=== PATIENT | female | born 1935 | race Caucasian/White ===

== ENCOUNTER 2017-02-12 08:19 | Inpatient (IN) | payer MEDICARE ==
[2017-02-12] VITALS (13 sets, daily range): BP systolic 143–181; BP diastolic 83–115
[~2017-02-12] VITALS: Ht 165.1 cm; Wt 65.9 kg
[~2017-02-12 08:19] MED LIST: ATEN25TA PO; BRIM5DRO2; DIGO125T18 PO; DORZ10DR24; FLUO5DRO6; FURO20TA4 PO; LATA2.5D5 OS; LEVO75TA6 PO; METH2.5T PO; OMEP20CA12 PO; POTA10TA36 PO; SIMV40TA4 PO; SUCR1TAB PO; TRAM50TA2 PO
[2017-02-12] MEDS ORDERED: ENOXAPARIN 40 MG/0.4 ML (LOVENOX) SYR SC SCH (09:15)
[2017-02-12] MEDS ORDERED: PRED5DRO17 OD (10:26)
[2017-02-12] MEDS ORDERED: GABA-488 PO (10:26)
[2017-02-12] MEDS: NS IV 1000 ML 1,000 ML IV SCH ×3 (10:38→22:24)
[2017-02-12] MEDS ORDERED: FOLI1TAB24 PO (10:50)
[2017-02-12] MEDS ORDERED: CYCL2DRO3 OD (10:50)
--- NOTE | 2017-02-12 11:49 | History & Physical-Hospitalist ---
HPI History of Present Illness: HPI/Chief Complaint CC: Acute Ischemic Stroke SW Review: Pt was last know well at 2200 yesterday. Pt was flaccid at 0630 this morning. Not a thrombolytic candidate. Hx of hemorrhagic CVA 2014. Patient Interview: Pt states her PCP is Dr. Enciso for [address] Vasquez was her PCP before Dr. Enciso and Dr Manzano. Physical exam was stable. Pt family states pt has AF and she is on meds for this condition. Pt states she goes to [facility]. Pt states she has been seeing Dr. Trevino, Cardiology. Pt states she is in pain. Pt will be given pain meds. Pt family states pt has RA. Palliative Care Review: Pt is a do not intubate. Scribed by Arnold Moore under the direct supervision of Dr. Briggs. Source: RN/MD Exam Limitations: clinical condition Date Seen 02/12/17 Attending Physician Rossy Briggs DO PCP Dayton Enciso MD Referring Physician Date of Admission Feb 12, 2017 at 09:40 Home Medications & Allergies Home Medications Reviewed patient Home Medication Reconciliation Form Allergies Allergies Coded Allergies iodine (Unverified Adverse Reaction, Unknown, 10/12/15) lidocaine (Unverified Adverse Reaction, Unknown, 10/12/15) Past Wkzdvjw-Moiozh-Naqney Hx Patient Social History Marrital Status: Employed/Student: retired Smoking Status: Unknown if Ever Smoked Immunizations Up To Date Tetanus Booster (TDap): Less than 5yrs Date of Influenza Vaccine: Sep 30, 2015 Surgeries HX Surgeries: Yes (foot surgery d/t RA) Surgeries: Appendectomy, Gallbladder, Hysterectomy Respiratory Hx Respiratory Disorders: Yes (02 at night) Cardiovascular Hx Cardiovascular Disorders: Yes Cardiac Disorders: Atrial Fibrillation, Hypertension Neurological Hx Neurological Disorders: Yes Neurological Disorders: TIA Gastrointestinal Hx Gastrointestinal Disorders: Yes Gastrointestinal Disorders: Gastroesophageal Reflux Musculoskeletal Hx Musculoskeletal Disorders: Yes Musculoskeletal Disorders: Rheumatoid Arthritis Endocrine Hx Endocrine Disorders: Yes Endocrine Disorders: Hypothyroidsim HEENT HX ENT Disorders: Yes HEENT Disorders: Glaucoma Review of Systems ROS-Unable to Obtain: patient w/CVA can't speak and patient found this am with deficit Constitutional: see HPI Physical Exam Physical Exam Vital Signs Vital Sign - Last 12Hours 02/12/17 09:45 Temp 99.0 Pulse 92 Resp 14 B/P (MAP) 145/83 Pulse Ox 97 O2 Delivery Room Air Capillary Refill : General Appearance: No Apparent Distress, WD/WN, Chronically ill, Other ( aphasic and right facial droop) Eyes: Bilateral Eye Normal Inspection, Bilateral Eye PERRL HEENT: PERRL/EOMI, Normal ENT Inspection, Pharynx Normal Neck: Normal Inspection, Non Tender, Supple Respiratory: Chest Non Tender, Lungs Clear, Normal Breath Sounds, No Accessory Muscle Use, No Respiratory Distress Cardiovascular: No Edema, No Gallop, No JVD, No Murmur, Normal Peripheral Pulses, Irregularly Irregular Gastrointestinal: Normal Bowel Sounds, No Organomegaly, No Pulsatile Mass, Non Tender, Soft Back: Normal Inspection, No CVA Tenderness, No Vertebral Tenderness Extremity: Normal Capillary Refill, Normal Inspection, Normal Range of Motion, Non Tender, No Calf Tenderness, No Pedal Edema Neurologic/Psychiatric: Alert, Oriented x3, No Motor/Sensory Deficits, Depressed Affect, Facial Droop, Motor Weakness (right) Skin: Normal Color, Warm/Dry Lymphatic: No Adenopathy Assessment/Plan Admission Diagnosis Assessment: Acute ischemic stroke with right sided facial droop and weakness hemiparesis h/o hemorrhagic CVA 2014 Chronic AF RA HTN Assessment and Plan Plan: CVA protocol DVT Px Consult Dr Moore since likely an embolic stroke from AF? HTN management but avoid hypotension PT/OT/Speech MRI ROSSY BRIGGS DO Feb 12, 2017 11:49
[2017-02-12] MEDS: ASPIRIN E.C. 325 MG (ECOTRIN) TABLET PO SCH (12:21)
[2017-02-12] MEDS: CLOPIDOGREL 75 MG (PLAVIX) TABLET PO SCH (12:21)
--- NOTE | 2017-02-12 13:32 | ST Dysphagia Evaluation ---
Speech Evaluation-General Medical Diagnosis CVA (MRI Brain Pending) Onset Date: Feb 12, 2017 Therapy Diagnosis Therapy Diagnosis: Oropharyngeal Swallow WFL Referral Referring Physician: Dr. Rossy Otto Reason for Referral: Evaluation/Treatment Clinical Bedside Swallowing Evaluation Medical History Pertinent Medical History: Atrial Fib, GERD, HTN, Hypothroidism, Rheumatoid Arthritis TIA Reviewed History: Yes Speech PLF/Current-Dysphagia Prior Level of Function Due to the patient's severe expressive aphasia, prior level of function information was not provided by the patient. Subjective The patient was recently admitted to [facility] with a diagnosis of CVA (MRI pending). The patient made eye contact with the clinician, however, was unable to verbally respond to questions or greetings due to severe expressive aphasia. The patient had family members present at bedside. The patient agreed (via head nod) to participate in the dysphagia evaluation on this date. Radiology studies are not available at this time. Cognitive Status Patient Orientation: Non-Verbal/Aphasic Oral Motor Skills Dentition: Natural Ability to Follow Directions: Fair (Direct modeling aided in accuracy of command following.) The patient is NPO pending results of dysphagia evaluation. Oral Expression Ability: Severe Impairment Face Facial Symmetry: Asymmetrical (Right facial droop present.) Oral-Facial Assessment Oral-Facial Dentition: Normal Labial Seal Description: Droops Right Smile: Droops Right Puff Cheeks: Reduced Strength (Right) Patient unable to follow command for lingual protrusion. Pharynx Velopharyngeal Move.: Normal Volitional Dry Swallow: Yes Dysphagia Evaluation Consistencies Presented: Regular, Thin Liquid, Pureed No oral impairments were noted throughout the evaluation. No pharyngeal impairments were noted throughout the evaluation. - Thin liquid (via teaspoon, straw sip), puree, solid: No signs/symptoms of aspiration were demonstrated with multiple boluses of each consistency presented. Vocal quality could not be assessed for clarity due to the patient's current nonverbal state. The patient's SpO2% remained at 95% throughout the assessment. Dietary Recommendations: Regular Liquid Recommendations: Thin Swallowing Precautions: Oral Supervision Staff, Oral Supervision Caregiver, Small Bites and Sips, Sitting 90 Degrees 30 Post Intake Dysphagia Evaluation Summary Oropharyngeal Swallow WFL Speech-Plan Treatment Plan Speech Therapy Treatment Plan: Discontinue ST Speech pathology to discontinue dysphagia services for patient due to a swallowing function WNL. Speech pathology will continue to follow the patient for speech and language services. Rehab Potential: Fair Safety Risks/Education Teaching Recipient: Patient, Family Teaching Methods: Discussion Response to Teaching: Verbalize Understanding, Reinforcement Needed Education Topics Provided: Results, Recommendations, Plan of Care Time Speech Therapy Time In: 11:45 Speech Therapy Time Out: 12:05 Total Billed Time: 20 Billed Treatment Time 1, MATTHIEU ALLEN Feb 12, 2017 13:32
[2017-02-12] MEDS ORDERED: ACET500C PO (13:46)
[2017-02-12] MEDS ORDERED: BRIM5DRO OU (13:49)
[2017-02-12] MEDS ORDERED: BIMA2.5D4 OD (13:49)
--- NOTE | 2017-02-12 14:16 | Diagnostic Imaging Report ---
PROCEDURE: MR imaging of the brain without contrast. TECHNIQUE: Multiplanar, multisequence MR imaging of the brain was performed without contrast. INDICATION: Mental status change. Question of stroke. FINDINGS: There is considerable restricted diffusion noted in the left temporal, parietal, and occipital cortex. Also extending anteriorly into the left temporal lobe. There is some restricted diffusion in the putamen in the left basal nuclei. No intracranial hemorrhage is demonstrated. Diffuse periventricular white matter changes are noted which were present previously and have changed very little. There is mild generalized cortical atrophy. The ventricles are not dilated. Basal cisterns are clear. CP angles are normal. There is normal flow void in the intracranial vessels. Flow void is demonstrated into the second and third order branches of the left middle cerebral artery. IMPRESSION: 1. Findings are consistent with evolving ischemic infarct involving the left temporal, parietal, and occipital lobes as well as the putamen in the left basal nuclei. No intracranial hemorrhage is demonstrated. No significant mass effect. Dictated by: Dictated on workstation # [id number]
--- NOTE | 2017-02-12 14:22 | Physical Therapy Evaluation ---
PT Evaluation-General Medical Diagnosis Admission Date Feb 12, 2017 at 09:40 Medical Diagnosis: CVA (MRI Brain Pending) Onset Date: Feb 12, 2017 Therapy Diagnosis Therapy Diagnosis: impaird mobility, balance, weakness, right jasmyne Height/Weight Height (Feet): 5 Height (Inches): 4 Weight (Pounds): 160 Referral Physician: Rossy Otto DO Reason for Referral: Evaluation/Treatment Medical History Pertinent Medical History: Atrial Fib, GERD, HTN, Hypothroidism, Rheumatoid Arthritis Additional Medical History O2 at night, TIA, glaucoma, surg (appendectomy, gall bladder, hysterectomy) Current History acute ischemic stroke Reviewed History: Yes Social History unknown, patient does not communicate, she had other family in the room but they were busy with other healthcare workers Prior/Core FIM Prior Level of Function Functional [place] Measure 0=Not Assessed/NA 4=Minimal Assistance 1=Total Assistance 5=Supervision or Setup 2=Maximal Assistance 6=Modified [place] 3=Moderate Assistance 7=Complete [place] unknown PT Evaluation-Current Subjective Patient in bed pre tx, she has other family members in the room with her. Patient does not seem to speak and will only look at therapist a moment before averting eyes or closing them like she is trying to sleep. Pain Comment: unknown, no grimacing Pt/Family Goals none stated Objective Patient Orientation: Unable to Assess Attachments: Oxygen ROM/Strength ROM Lower Extremities WNL Strenght Lower Extremities NT, patient will not follow commands Neuromuscular (Tone, Coordination, Reflexes) right hemiparesis Sensory Vision: Unable to Assess Hearing: Unable to Assess Sensation Lower Extremities unable to assess Transfers Functional [place] Measure 0=Not Assessed/NA 4=Minimal Assistance 1=Total Assistance 5=Supervision or Setup 2=Maximal Assistance 6=Modified [place] 3=Moderate Assistance 7=Complete [place] Transfers (B, C, W/C) (FIM): 2 Scootin Rollin Supine to/from Sit: 2 Patient was max assist of 2 for supine to sit, she was able to sit at the edge of the bed for a few minutes without assist but needed assist when she got fatigued. Standing was not attempted due to blood pressure 180/90. She did try some LAQ at the edge of the bed. Patient will not follow commands but will immitate a little. Balance Sitting Static: Fair Sitting Dynamic: Poor Treatment LAQ each side x10 Assessment/Needs Patient has impairments in mobility, balance, strength, and endurance. She does not follow directions, will sometimes immitate others. Poor initiation and motivation. Rehab Potential: Poor PT Snf Goals Bearing Machine Operator Goals PT Snf Goals Time Frame: Feb 19, 2017 Transfers (B,C,W/C) (FIM): 4 Gait (FIM): 1 Distance: 3' Gait Level of Assist: 2 Gait Assistive Device: FWW PT Plan Problem List Problem List: Activity Tolerance, Functional Strength, Safety, Balance, Gait, Transfer, Bed Mobility, ROM Treatment/Plan Treatment Plan: Continue Plan of Care Treatment Plan: Bed Mobility, Education, Functional Activity [place], Functional Strength, Gait, Safety, Therapeutic Exercise, Transfers Treatment Duration: Feb 19, 2017 # of days/week 5-6 Visits Per Week: 5-6 Minutes/Day (M-F): 15-30 Minutes/Day (Sat/Anders): 15-30 Pt/Family Agrees w/Plan: Yes Safety Risks/Education Patient Education: Transfer Techniques, Correct Positioning, Safety Issues Teaching Recipient: Patient Teaching Methods: Demonstration, Discussion Response to Teaching: Reinforcement Needed Discharge Recommendations Plan Patient will perform bed mobility and transfer training, balance and endurance training, functional strengthening, stair training, gait training, education, to improve functional mobility and independence at home. Therapy D/C Recommendations: Home w/ Family Support, Assisted (TCU/NH) Time/GCodes Time In: 1350 Time Out: 1405 Total Billed Treatment Time: 15 Total Billed Treatment 1 visit EVL 15 min RETA PENA PT Feb 12, 2017 14:22
--- NOTE | 2017-02-12 14:42 | Consultation-Cardiology ---
HPI-Cardiology Cardiology Consultation: Date of Consultation 02/12/17 Date of Admission Attending Physician Rossy Otto DO Admitting Physician Jayne Vasquez MD Consulting Physician PATRICK GARCIA MD, MA, FACP, FACC, [facility], CCDS Physician requesting consult: Dr Otto HPI: Chief Complaint: Reason for consultation: Chronic atrial fib 81 yo woman admitted to Dr Otto's Stroke Service today with flaccid paralysis of the R upper and lower limb, not felt to be a suitable candidate for thrombolysis by Dr Otto At the time of my exam, she is aphasic but appropriately responsive (by gestures ). She does not report cp or palp or syncope Family reports a h/o fall leading to post-traumatic intracranial bleed in 2014 for which she remained hospitalized in [place] and under neurosurg observation, but did not need any intervention There is a remote h/o warfarin therapy, but has not been on it for a long time. No one seems to recall when she went off warfarin Her regular ventilating expert is Dr Trevino, but she has not seen him in a very long time, according to the family Review of Systems-Cardiology Review of Systems Constitutional: other (A detailed review of systems is not possible because of patient's aphasia and some lethargy/confusion. To the extent that it could be obtained is described under HPI above) OLU-Vwfqwt-Rwjggy Hx Patient Social History Marrital Status: Employed/Student: retired Smoking Status: Unknown if Ever Smoked Recent Foreign Travel: No Recent Infectious Disease Expo: No Immunizations Up To Date Tetanus Booster (TDap): Less than 5yrs Date of Pneumonia Vaccine: Aug 20, 2014 Date of Influenza Vaccine: Aug 17, 2016 Past Medical History PMH As described under Assessment. Family Medical History Family History: Alcoholism 19 FATHER Asthma 19 MOTHER G8 SISTER Cardiovascular disease G8 SISTER FH: atrial fibrillation G8 SISTER FH: cancer G8 BROTHER G8 SISTER FH: lymphoma G8 BROTHER G8 SISTER Allergies and Home Medications Allergies Coded Allergies: iodine (Unverified Adverse Reaction, Unknown, 10/12/15) lidocaine (Unverified Adverse Reaction, Unknown, 10/12/15) Home Medications Acetazolamide 500 Mg Capsule.er, 500 MG PO DAILY, (Reported) LAST FILLED #30 12-25-16 Atenolol 25 Mg Tablet, 12.5 MG PO DAILY, (Reported) TAKES 1/2 (25MG) TABLET Bimatoprost 2.5 Ml Drops, 1 DROP OD HS, (Reported) Brimonidine Tartrate/Timolol 5 Ml Drops, 1 DROP OU BID, (Reported) Cyclopentolate HCl 2 Ml Drops, 1 DROP OD DAILY, (Reported) Digoxin 125 Mcg Tablet, 125 MCG PO DAILY, (Reported) Folic Acid 1 Mg Tablet, 1 MG PO BID, (Reported) Gabapentin 300 Mg Capsule, 300 MG PO BID, (Reported) Levothyroxine Sodium 75 Mcg Tablet, 75 MCG PO DAILY, (Reported) Methotrexate Sodium 2.5 Mg Tablet, 25 MG PO WEEK, (Reported) TAKES 10 (2.5MG) TABLETS Omeprazole 20 Mg Capsule.dr, 20 MG PO BID, (Reported) Prednisolone Acetate 5 Ml Drops.susp, 1 DROP OD QID, (Reported) Simvastatin 40 Mg Tablet, 40 MG PO HS, (Reported) Tramadol HCl 50 Mg Tablet, 50 MG PO Q4H PRN for PAIN, (Reported) LAST FILLED #180 10-12-16 Physical Exam-Cardiology Physical Exam Vital Signs/I&O Vital Sign - Last 12Hours 02/12/17 02/12/17 09:45 10:20 Temp 99.0 Pulse 92 95 Resp 14 B/P (MAP) 145/83 Pulse Ox 97 O2 Delivery Room Air Capillary Refill : Constitutional: well-developed, well-nourished, other (lethargic/confused, but does seem to respond appropriately to commands) HEENT: EOMI, No xanthelasmas are seen Neck: carotid pulses are 2 + bilaterally, with good upstrokes Respiratory: No accessory muscle use, other (good bilat air entry) Cardiovascular: irregularly irregular, S1 and S2, systolic murmur (soft [place] at cardiac base) Gastrointestinal: No tender, soft, No guarding, No rebound, audible bowel sounds Extremities: No clubbing, No cyanosis, No significant edema Neurologic/Psychiatric: other (See under Constitutional for mental status exam ; 0/5 power in the R arm and R leg; leftward gaze) Skin: No rash on exposed areas, No ulcerations on exposed areas ECG Impression ECG Comment ECG on 02/12/17: A Fib with a controlled vent response and mild, nonspecific ST abn A/P-Cardiology Assessment/Admission Diagnosis Acute ischemic L-sided CVA, resulting in R-sided paralysis Chronic persistent atrial fibrillation H/o intracranial bleed in 2015 that is related to trauma (fall) H/o hypertension H/o rheumatoid arthritis H/o hypothyroidism, treated with thyroid replacement therapy Discussion and Recomendations There is no h/o spontaneous hemorrhagic CVA. The only history provided to me is that of traumatic head bleed. This presentation is with ischemic (thromboembolic ) CVA, as confirmed on today's MRI, that is likely related to patient's chronic atrial fib. There is no intracranial bleed on today's MRI. Therefore, it appears appropriate to initiate oral anticoag for further stroke prevention Her heart rate currently appears controlled. Consider BB or CCB for vent rate control if that becomes an issue I discussed all of the above issues with her family, including the potential risks of OAC that include harmful bleeding. They understand and concur with this treatment plan Management of stroke all noncardiac issues is with Dr Clarita Easley will be covering the Cardiology Service over the weekend PATRICK GARCIA MD FACP FACC CCDS Feb 12, 2017 14:42
--- NOTE | 2017-02-12 15:52 | Diagnostic Imaging Report ---
PROCEDURE: US Carotid Duplex Bilateral. TECHNIQUE: Multiple real-time grayscale images were obtained over the carotid arteries in various projections bilaterally. Additional duplex Doppler and color Doppler images were also obtained. INDICATION: Difficulty speaking. FINDINGS: Real-time imaging shows small calcified plaquing right carotid bulb. Color Doppler imaging shows normal antegrade flow through the carotid and vertebral arteries bilaterally. Waveforms and peak velocities are normal throughout the carotid and vertebral arteries. Carotid ratios are normal bilaterally. IMPRESSION: Minimal atherosclerotic plaquing right carotid bulb with no significant disease demonstrated throughout the carotid and vertebral arteries. Dictated by: Dictated on workstation # [id number]
--- NOTE | 2017-02-12 16:16 | Occupational Therapy Eval ---
OT Evaluation-General/PLF Medical Diagnosis Admission Date Feb 12, 2017 at 09:40 Medical Diagnosis: CVA (MRI Brain Pending) Onset Date: Feb 12, 2017 Therapy Diagnosis Therapy Diagnosis: weakness, decr self care, decr functional use R UE, decr funct mobility Height/Weight Height (Feet): 5 Height (Inches): 5.00 Weight (Pounds): 139 Weight (Ounces): 8.0 Precautions Precautions/Isolations: Fall Prevention, Standard Precautions Referral Physician: Rossy Otto DO Referral Reason: Evaluation/Treatment Medical History Pertinent Medical History: Atrial Fib, GERD, HTN, Hypothroidism, Rheumatoid Arthritis Additional Medical History O2 use at night, Hx TIA, intracranial bleed in 2015. 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 No intracranial hemorrhage is demonstrated. No significant mass effect. Social History Home: Single Level Current Living Status: Spouse ADL-Prior Level of Function ADL PLOF Comments reported pt has been able to manage her basic self care needs with only a little help, limited by RA. 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 Unable to verbally respond so history is from . No pain reported or pain behaviors observed but pt closed eyes much of the time. Mental Status/Objective Attachments: IV, Oxygen, Telemetry Current Glasses/Contacts: Yes Hearing Aids: No Dentures/Partials: No Hand Dominance: Right Upper Extremity ROM L UE WFL passively. Pt was able to hold arm above her head briefly but unable to follow commands. R UE WFL passively. No active movement observed but she does have increased muscle tone in R UE. reported "RA all over her body. " Upper Extremity Coordination Decrease coordination R UE - no functional movement observed Upper Extremity Sensation Unable to assess sensation in UEs. 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 She was unable to track visually past midline to the right. Expressive aphasia. PT reported max assist of 2 to come to sitting EOB. ADL-Treatment Functional [place] Measure 0=Not Assessed/NA 4=Minimal Assistance 1=Total Assistance 5=Supervision or Setup 2=Maximal Assistance 6=Modified [place] 3=Moderate Assistance 7=Complete IndependenceIRFPAI Quality Coding Scale 6 Independent with activity with or without an assistive device 5 Patient requires set up or clean up by helper. Patient completes activity by themselves 4 Supervision or touching assist (CGA). [place] provide cues , steadying assist 3 The helper provides less than half the effort to complete the activity 2 The helper provides more than half the effort to complete the activity 1 Dependent. The helper does all the effort to complete an activity 7 Patient refused to complete or attempt activity 9 The patient did not perform the activity before the current illness or injury 88 Not attempted due to Medical conditions or safety concerns Education OT Patient Education: Disease process (explained visual field to ), Purpose of tx/functional activities, Rehab process Teaching Recipient: Family Response to Teaching: Verbalize Understanding OT Short Term Goals Short Term Goals . OT Senior Reservoir Engineer Goals Retirement Goals Time Frame: Mar 12, 2017 Eating (FIM): 5 Grooming(FIM): 5 Bathing(FIM): 5 Upper Body Dressing(FIM): 5 Lower Body Dressing(FIM): 5 Toileting(FIM): 5 Toilet/Commode Transfer(FIM): 5 Shower Transfer(FIM): 5 Additional Goals: 2-Verbalize Understanding, 3-ImproveStrength/Tor[place] 1=Demonstrate adherence to instructed precautions during ADL tasks. 2=Patient will verbalize/demonstrate understanding of assistive devices/ modifications for ADL. 3=Patient will improve strength/tolerance for activity to enable patient to perform ADL's. OT Education/Plan Problem List/Assessment Assessment: Decreased UE Strength, Dependent Transfers, Impaired Bed Mobility, Impaired Cognition, Impaired Coordination, Impaired Funct Balance, Impaired Self -Care Skills, Restricted Funct UE ROM, Visual-Perceptual Deficit Pt would benefit from skilled OT to increase her independence in basic self care to allow her to return home safely with family and to decrease caregiver burden. Discharge Recommendations Plan/Recommendations: Continue POC Treatment Plan/Plan of Care Treatment,Training & Education: Yes Patient would benefit from OT for education, treatment and training to promote independence in ADL's, mobility, safety and/or upper extremity function for ADL' s. Plan of Care: ADL Retraining, Functional Mobility, UE Funct Exercise/Act, UE Neuromus Re-Ed/Coord, Visual/Perceptual Retrain Treatment Duration: Mar 12, 2017 # of days/week 5 Visits Per Week: 5 Agreement: Yes Rehab Potential: Fair Time/GCodes Start Time: 15:50 Stop Time: 16:05 Total Time Billed (hr/min): 15 Billed Treatment Time visit, evaluation moderate intensity STEVEN JONES OT Feb 12, 2017 16:16
[2017-02-12] MEDS: ATORVASTATIN 80 MG (LIPITOR) TABLET PO SCH (21:04)
[2017-02-12] MEDS: APIXABAN 5 MG (ELIQUIS) TABLET PO SCH (21:04)
[2017-02-13] VITALS (19 sets, daily range): BP systolic 145–191; BP diastolic 63–116
[2017-02-13 02:59] LABS: BASOPHILS % (AUTO) 0 % (0-10); EOSINOPHILS % (AUTO) 0 % (0-10); LYMPHOCYTES # (AUTO) 1.4 X 10^3 (1.0-4.0); LYMPHOCYTES % (AUTO) 12 % (12-44); MEAN CORPUSCULAR HEMOGLOBIN 32 PG (25-34); MEAN CORPUSCULAR HGB CONC 33 G/DL (32-36); MEAN CORPUSCULAR VOLUME 97 FL (80-99); MEAN PLATELET VOLUME 9.6 FL (7.4-10.4); MONOCYTES # (AUTO) 0.5 X 10^3 (0.0-1.0); MONOCYTES % (AUTO) 4 % (0-12); NEUTROPHILS # (AUTO) 9.4 X 10^3 (1.8-7.8); NEUTROPHILS % (AUTO) 83 % (42-75); PLATELET COUNT 261 10^3/uL (130-400); RED BLOOD COUNT 4.06 10^6/uL (4.35-5.85); WHITE BLOOD COUNT 11.3 10^3/uL (4.3-11.0)
[2017-02-13 03:20] LABS: ALANINE AMINOTRANSFERASE 15 U/L (0-55); ALBUMIN 3.8 G/DL (3.2-4.5); ANION GAP 11 MMOL/L (5-14); ASPARTATE AMINO TRANSFERASE 21 U/L (5-34); BILIRUBIN,TOTAL 1.2 MG/DL (0.1-1.0); BLOOD UREA NITROGEN 12 MG/DL (7-18); BUN/CREATININE RATIO 21; CALCIUM 8.8 MG/DL (8.5-10.1); CARBON DIOXIDE 23 MMOL/L (21-32); CHLORIDE 105 MMOL/L (98-107); CHOLESTEROL 191 MG/DL (< 200); CREATININE SERUM 0.58 MG/DL (0.60-1.30); DIRECT LDL 109 MG/DL (1-129); GFR ESTIMATED > 60; GLUCOSE 119 MG/DL (70-105); MAGNESIUM 2.1 MG/DL (1.8-2.4); POTASSIUM 3.3 MMOL/L (3.6-5.0); SODIUM 139 MMOL/L (135-145); TOTAL PROTEIN 6.8 G/DL (6.4-8.2); TRIGLYCERIDES 120 MG/DL (<150); VLDL CHOLESTEROL 24 MG/DL (5-40)
[2017-02-13 03:40] LABS: THYROID STIMULATING HORMONE 0.72 UIU/ML (0.35-4.94)
[2017-02-13] MEDS: POTASSIUM CL 10MEQ/50ML IVPB 50 ML IV SCH ×4 (05:00→08:44)
[2017-02-13] MEDS ORDERED: POTASSIUM CL 10MEQ/50ML IVPB 50 ML IV SCH (06:00)
[2017-02-13] MEDS ORDERED: KCL 20 MEQ TAB (K-DUR) PO SCH (06:00)
[2017-02-13] MEDS ORDERED: MAGNESIUM 1 GM/100 ML IVPB 100 ML IV SCH (06:00)
[2017-02-13] MEDS: ASPIRIN E.C. 325 MG (ECOTRIN) TABLET PO SCH (08:26)
[2017-02-13] MEDS: CLOPIDOGREL 75 MG (PLAVIX) TABLET PO SCH (08:26)
[2017-02-13] MEDS: APIXABAN 5 MG (ELIQUIS) TABLET PO SCH ×2 (08:27→21:03)
[2017-02-13] MEDS: NS IV 1000 ML 1,000 ML IV SCH ×2 (08:32→18:37)
--- NOTE | 2017-02-13 09:53 | Diagnostic Imaging Report ---
INDICATION: Shortness of breath. FINDINGS: There is cardiomegaly. Mediastinum is unremarkable. There is some minimal bibasilar subsegmental atelectasis and/or pneumonitis. There is no pleural effusion or pneumothorax. IMPRESSION: Cardiomegaly and minimal bibasilar subsegmental atelectasis and/or pneumonitis. Dictated by: Dictated on workstation # [id number]
--- NOTE | 2017-02-13 12:36 | Occupational Ther Daily Note ---
OT Current Status-Daily Note Subjective Pt seen in room, up in bed, asleep but easily awakened and agreeable to therapy. Pt shook her head when asked if she was in any pain Appearance More alert, cooperative Mental Status/Objective Functional [place] Measure 0=Not Assessed/NA 4=Minimal Assistance 1=Total Assistance 5=Supervision or Setup 2=Maximal Assistance 6=Modified [place] 3=Moderate Assistance 7=Complete [place] Attachments: IV, SCD's, Telemetry ADL-Treatment Co tx with PT, with PT working on bed mobility, sitting balance, standing, OT working on ADLs, R UE function, vision. Pt assisted with moving from supine to sit EOB and was able to help scoot forward in bed. Pt turned head toward R side and looked to R visual field. While sitting unsupported at EOB, pt was give washcloth and opened R hand to hold it. She used both hands together to wash her mouth and lower face but was unable with either hand to wash upper face. She stood with FWW (see Pt note) while OT washed her jose rafael area (she was incontinent of urine). PT noted that she was able to weight shift with LEs while standing. OT talked with RN and encouraged nursing to get pt up in recliner, doing stand pivot transfer. Pt continued with expressive aphasia and did better with functional tasks that were more automatic. Pt left up in bed, 4 rails up. Education OT Patient Education: Instructions to caregiver, Modified ADL techniques, Purpose of tx/functional activities, Transfer techniques Teaching Recipient: Patient, Primary Caregiver Teaching Methods: Discussion OT Short Term Goals Short Term Goals 1=Demonstrate adherence to instructed precautions during ADL tasks. 2=Patient will verbalize/demonstrate understanding of assistive devices/ modifications for ADL. 3=Patient will improve strength/tolerance for activity to enable patient to perform ADL's. OT Trimmer Machine Goals Trimmer Machine Goals Time Frame: Mar 12, 2017 Eating (FIM): 5 Grooming(FIM): 5 Bathing(FIM): 5 Upper Body Dressing(FIM): 5 Lower Body Dressing(FIM): 5 Toileting(FIM): 5 Toilet/Commode Transfer(FIM): 5 Shower Transfer(FIM): 5 Additional Goals: 2-Verbalize Understanding, 3-ImproveStrength/[place] 1=Demonstrate adherence to instructed precautions during ADL tasks. 2=Patient will verbalize/demonstrate understanding of assistive devices/ modifications for ADL. 3=Patient will improve strength/tolerance for activity to enable patient to perform ADL's. OT Education/Plan Problem List/Assessment Pt would benefit from skilled OT to increase her independence in basic self care to allow her to return home safely with family and to decrease caregiver burden. Discharge Recommendations Plan/Recommendations: Continue POC Treatment Plan/Plan of Care Patient would benefit from OT for education, treatment and training to promote independence in ADL's, mobility, safety and/or upper extremity function for ADL' s. Plan of Care: ADL Retraining, Functional Mobility, UE Funct Exercise/Act, UE Neuromus Re-Ed/Coord, Visual/Perceptual Retrain Treatment Duration: Mar 12, 2017 Visits Per Week: 5 Agreement: Yes Rehab Potential: Fair Time/GCodes Start Time: 10:30 Stop Time: 10:55 Total Time Billed (hr/min): 25 Billed Treatment Time visit, 10 minutes ADL (co-tx for 20 minutes with PT, 5 minutes education with nurse) STEVEN JONES OT Feb 13, 2017 12:36
--- NOTE | 2017-02-13 12:44 | Physical Therapy Daily Note ---
PT Daily Note-Current Subjective Co- treatment with OT. Pt non verbal but nodding head appropriately to questions and responds appropriately to directions. Mental Status Patient Orientation: Person, Non-Verbal/Aphasic, Eyes Open Attachments: IV BP 169/116 per monitor Transfers Functional [place] Measure 0=Not Assessed/NA 4=Minimal Assistance 1=Total Assistance 5=Supervision or Setup 2=Maximal Assistance 6=Modified [place] 3=Moderate Assistance 7=Complete IndependenceIRFPAI Quality Coding Scale 6 Independent with activity with or without an assistive device 5 Patient requires set up or clean up by helper. Patient completes activity by themselves 4 Supervision or touching assist (CGA). [place] provide cues , steadying assist 3 The helper provides less than half the effort to complete the activity 2 The helper provides more than half the effort to complete the activity 1 Dependent. The helper does all the effort to complete an activity 7 Patient refused to complete or attempt activity 9 The patient did not perform the activity before the current illness or injury 88 Not attempted due to Medical conditions or safety concerns Treatments Co treatment: Pt able to intiate her transfer from supine to EOB. Pt responding appropriately to instructions. PT treatment consisted of sitting balance EOB. Once pt upright, she was able to maintain her sitting balance (I) . Pt was instructed to shift her weight R-L and then forward and back in sitting which she performed with light tactile cues. PT treatment included standing at bedside first with SOCIAL PSYCHOLOGIST of 2 followed by static stance with support of FWW and CGA while she was cleaned due to incontinence. Pt demonstrated ability to stand 2-3 min. Pt was instructed to walk in place. Pt was able to perform approximately [address] Pt sat down with controlled descent. Allowed to rest then stood again in order to move up toward the HOB. Pt was given min A for sit to supine transfer, made comfortable and all needs met. Assessment Current Status: Good Progress Pt making eye contact, responding appropriately to instructions and nodding head to questions. Pt did say "yes" when asked if she wanted another pillow. Pt showing some automatic response with (R) hand during treatment, showing ability to track eyes to the (R) one time, also showed ability to turn her head to the (R) one time. Pt back to bed with all needs met. PT Mcfp Goals Mcfp Goals PT Mcfp Goals Time Frame: Feb 19, 2017 Transfers (B,C,W/C) (FIM): 4 Gait (FIM): 1 Distance: 3' Gait Level of Assist: 2 Gait Assistive Device: FWW PT Plan Treatment/Plan Treatment Plan: Continue Plan of Care Treatment Plan: Bed Mobility, Education, Functional Activity [place], Functional Strength, Gait, Safety, Therapeutic Exercise, Transfers Treatment Duration: Feb 19, 2017 Visits Per Week: 5-6 Minutes/Day (M-F): 15-30 Minutes/Day (Sat/Anders): 15-30 Time/GCodes Time In: 1030 Time Out: 1050 Total Billed Treatment Time: 10 Total Billed Treatment 1, FA x 10 min MINDY HURLEY CPTA Feb 13, 2017 12:44
--- NOTE | 2017-02-13 12:45 | Progress Note-Hospitalist ---
Standard Progress Note Progress Notes/Assess & Plan Date Seen 02/13/17 Diagnosis Assessment: Acute ischemic stroke with right sided facial droop and weakness hemiparesis h/o hemorrhagic CVA 2014 Chronic AF RA HTN Assess & Plan/Chief Complaint The patient is an 81-year-old white female who was transferred here yesterday from the [place] emergency room after she presented there with new stroke symptoms. As she awakened with these she did not qualify for thrombolysis. It appears that she had not been taking any anticoagulant for her chronic atrial fibrillation and that this may have been embolic. She suffered loss of ability to speech as well as right-sided facial droop and right hemiparesis. Physical exam: She was alert she made an attempt to speak however I could not understand her. She appeared unable to furrow her right forehead. There was effacement of the right nasolabial fold. There was very weak mirror specialist on the right. She could slow the descent of her right hand to the bed but could not hold it up independently. She was able to dorsiflex the right foot and fleetingly get her heel off of the bed surface. Impression: Chronic atrial fibrillation. 2.likely embolic stroke involving the distribution of the right middle cerebral artery. 3.resultant speech deficit and right hemiparesis. Plan: Transfer [facility] the rehabilitation [facility] and prepare for IRF Evaluation Labs Laboratory Tests 02/13/17 02:51 IVAN HARMON MD Feb 13, 2017 12:45
--- NOTE | 2017-02-13 14:01 | Cardiology Progress Note ---
Cardiology SOAP Progress Note Subjective: aphasic, right sided weakness Objective: I&O/Vital Signs Vital Sign - Last 12Hours 02/13/17 02/13/17 02/13/17 02/13/17 03:00 04:00 04:00 05:00 Temp 99.7 Pulse 91 82 83 Resp 22 20 13 B/P (MAP) 160/91 167/100 174/105 Pulse Ox 93 93 93 94 O2 Delivery Room Air Room Air Room Air 02/13/17 02/13/17 02/13/17 02/13/17 06:00 07:00 07:00 08:25 Temp 99.3 Pulse 87 93 82 93 Resp 25 24 20 B/P (MAP) 180/96 174/102 173/93 Pulse Ox 95 96 94 O2 Delivery Room Air Room Air Room Air 02/13/17 02/13/17 02/13/17 02/13/17 09:00 10:00 11:00 12:00 Pulse 89 84 82 81 Resp 20 20 23 19 B/P (MAP) 159/87 169/116 191/107 179/94 Pulse Ox 94 94 94 94 O2 Delivery Room Air Room Air Room Air Room Air Intake and Output 02/13/17 00:00 Intake Total 1190 ml Balance 1190 ml Weight (Pounds): 138 Weight (Ounces): 14.4 Weight (Calculated Kilograms): 63.231677 Constitutional: well-developed, well-nourished, other (lethargic/confused, but does seem to respond appropriately to commands) Respiratory: No accessory muscle use, other (good bilat air entry) Cardiovascular: irregularly irregular, S1 and S2, systolic murmur (soft [place] at cardiac base) Gastrointestional: No tender, soft, No guarding, No rebound, audible bowel sounds Extremities: No clubbing, No cyanosis, No significant edema Neurologic/Psychiatric: other ( 0/5 power in the R leg; leftward gaze; 4/5 power in right UE) Skin: No rash on exposed areas, No ulcerations on exposed areas Results/Procedures: Labs Laboratory Tests 02/13/17 02:51: White Blood Count 11.3H, Red Blood Count 4.06L, Hemoglobin 13.1, Hematocrit 40, Mean Corpuscular Volume 97, Mean Corpuscular Hemoglobin 32, Mean Corpuscular Hemoglobin Concent 33, Red Cell Distribution Width 14.0, Platelet Count 261, Mean Platelet Volume 9.6, Neutrophils (%) (Auto) 83H, Lymphocytes (%) (Auto) 12 , Monocytes (%) (Auto) 4, Eosinophils (%) (Auto) 0, Basophils (%) (Auto) 0, Neutrophils # (Auto) 9.4H, Lymphocytes # (Auto) 1.4, Monocytes # (Auto) 0.5, Eosinophils # (Auto) 0.0, Basophils # (Auto) 0.0, Sodium Level 139, Potassium Level 3.3L, Chloride Level 105, Carbon Dioxide Level 23, Anion Gap 11, Blood Urea Nitrogen 12, Creatinine 0.58L, Estimat Glomerular Filtration Rate > 60, BUN /Creatinine Ratio 21, Glucose Level 119H, Calcium Level 8.8, Magnesium Level 2.1 , Total Bilirubin 1.2H, Aspartate Amino Transf (AST/SGOT) 21, Alanine Aminotransferase (ALT/SGPT) 15, Alkaline Phosphatase 65, Total Protein 6.8, Albumin 3.8, Triglycerides Level 120, Cholesterol Level 191, LDL Cholesterol Direct 109, VLDL Cholesterol 24, HDL Cholesterol 59, Thyroid Stimulating Hormone (TSH) 0.72 A/P: Assessment/Dx: Assessment/Admission Diagnosis Acute ischemic L-sided CVA, resulting in R-sided paralysis Chronic persistent atrial fibrillation H/o intracranial bleed in 2014 that is related to trauma (fall) H/o hypertension H/o rheumatoid arthritis H/o hypothyroidism, treated with thyroid replacement therapy Plan: Discussion and Recomendations acute stroke; likely secondary to chronic atrial fibrillation not on oral anticoagulation. Started on Eliquis by Dr. Moore. Her heart rate currently appears controlled. Consider BB or CCB for vent rate control if that becomes an issue Management of stroke all noncardiac issues is with Hai Blood MD Feb 13, 2017 14:01
[2017-02-13] MEDS: ACETAMINOPHEN 325 MG TABLET/CAPLET (TYLENOL) PO PRN (18:04)
[2017-02-13] MEDS: ATORVASTATIN 80 MG (LIPITOR) TABLET PO SCH (21:03)
[2017-02-14] VITALS (8 sets, daily range): BP systolic 146–184; BP diastolic 84–103
[2017-02-14] MEDS: NS IV 1000 ML 1,000 ML IV SCH ×2 (04:56→20:03)
[2017-02-14] MEDS: ASPIRIN E.C. 325 MG (ECOTRIN) TABLET PO SCH (08:20)
[2017-02-14] MEDS: APIXABAN 5 MG (ELIQUIS) TABLET PO SCH ×2 (08:21→20:03)
[2017-02-14] MEDS: CLOPIDOGREL 75 MG (PLAVIX) TABLET PO SCH (08:23)
--- NOTE | 2017-02-14 10:20 | Progress Note-Hospitalist ---
Standard Progress Note Progress Notes/Assess & Plan Date Seen 02/14/17 Diagnosis Assessment: Acute ischemic stroke with right sided facial droop and weakness hemiparesis h/o hemorrhagic CVA 2014 Chronic AF RA HTN Assess & Plan/Chief Complaint The patient is awake but not very interactive this morning. One of the aides is assisting in her breakfast. She is swallowing oatmeal without difficulty. Physical exam:Graphic shows hypertension. I am restarting her home medications to address this. Her affect is rather flat. There is a right facial droop. Lungs are clear to auscultation. CV is irregular. She acquisition advisor with her left hand but not her right. The feet both show movement to command. Impression: Acute CVA with aphasia and right hemiparesis. 2.hypertension. 3.atrial fibrillation. Plan: Reduce IV fluids and encourage oral intake. Rehabilitation eval in a.m. Labs Laboratory Tests 02/13/17 02:51 IVAN HARMON MD Feb 14, 2017 10:20
[2017-02-14] MEDS: CYCLOPENTOLATE 1% (CYCLOGYL) 2 ML DROPS OD SCH (10:23)
[2017-02-14] MEDS: prednisoLONE 1% OPTH (PRED FORTE) 5 ML BTL OD SCH ×3 (13:00→20:04)
--- NOTE | 2017-02-14 13:33 | Cardiology Progress Note ---
Cardiology SOAP Progress Note Subjective: no complaints Objective: I&O/Vital Signs Vital Sign - Last 12Hours 02/14/17 02/14/17 02/14/17 04:00 08:00 12:00 Temp 100.1 99.0 99.7 Pulse 95 70 85 Resp 16 20 18 B/P (MAP) 178/99 174/99 146/87 Pulse Ox 93 96 96 O2 Delivery Room Air Room Air Room Air Intake and Output 02/14/17 00:00 Intake Total 1030 ml Balance 1030 ml Weight (Pounds): 146 Weight (Ounces): 0.0 Weight (Calculated Kilograms): 66.672569 Constitutional: well-developed, well-nourished, other (lethargic/confused, but does seem to respond appropriately to commands) Respiratory: No accessory muscle use, other (good bilat air entry) Cardiovascular: irregularly irregular, S1 and S2, systolic murmur (soft [place] at cardiac base) Gastrointestional: No tender, soft, No guarding, No rebound, audible bowel sounds Extremities: No clubbing, No cyanosis, No significant edema Neurologic/Psychiatric: other ( 0/5 power in the R leg; leftward gaze; 4/5 power in right UE) Skin: No rash on exposed areas, No ulcerations on exposed areas A/P: Assessment/Dx: Assessment/Admission Diagnosis Acute ischemic L-sided CVA, resulting in R-sided paralysis Chronic persistent atrial fibrillation H/o intracranial bleed in 2014 that is related to trauma (fall) H/o hypertension H/o rheumatoid arthritis H/o hypothyroidism, treated with thyroid replacement therapy Plan: Discussion and Recomendations acute stroke; likely secondary to chronic atrial fibrillation not on oral anticoagulation. Started on Eliquis by Dr. Moore. I dced aspirin and plavix. added lisinopril for BP control. Her heart rate currently appears controlled. continue BB. Management of stroke all noncardiac issues is with Dr Clarita Moore to follow tomorrow. Hai LAZO MD Feb 14, 2017 13:33
[2017-02-14] MEDS: FOLIC ACID 1 MG TAB PO SCH (20:03)
[2017-02-14] MEDS ORDERED: SIMvastatin 40 MG (ZOCOR) TAB PO SCH (21:00)
[2017-02-15 04:06] VITALS: BP 148/73
[2017-02-15 08:00] VITALS: BP 164/99
[2017-02-15] MEDS: FOLIC ACID 1 MG TAB PO SCH (08:12)
[2017-02-15] MEDS: APIXABAN 5 MG (ELIQUIS) TABLET PO SCH (08:12)
[2017-02-15] MEDS: prednisoLONE 1% OPTH (PRED FORTE) 5 ML BTL OD SCH (08:13)
[2017-02-15] MEDS: ACETAMINOPHEN 325 MG TABLET/CAPLET (TYLENOL) PO PRN (08:26)
[2017-02-15] MEDS: CYCLOPENTOLATE 1% (CYCLOGYL) 2 ML DROPS OD SCH (08:34)
--- NOTE | 2017-02-15 08:45 | Progress Note-Cardiology ---
Cardiology SOAP Progress Note Subjective: In bed. No visible signs of distress. Opens eyes to verbal and tactile stimuli , but did not interact. Objective: I&O/Vital Signs Vital Sign - Last 12Hours 02/15/17 02/15/17 04:06 08:00 Temp 100.8 98.6 Pulse 71 88 Resp 18 20 B/P (MAP) 148/73 164/99 Pulse Ox 95 97 O2 Delivery Room Air Room Air Intake and Output 02/15/17 00:00 Intake Total 1480 ml Balance 1480 ml Weight (Pounds): 145 Weight (Ounces): 5.0 Weight (Calculated Kilograms): 65.391425 Constitutional: well-developed, well-nourished, other (lethargic/confused, but does seem to respond appropriately to commands) Respiratory: No accessory muscle use, other (good bilat air entry) Cardiovascular: irregularly irregular, S1 and S2, systolic murmur (soft [place] at cardiac base) Gastrointestional: No tender, soft, No guarding, No rebound, audible bowel sounds Extremities: No clubbing, No cyanosis, No significant edema Neurologic/Psychiatric: other ( 0/5 power in the R leg; leftward gaze; 4/5 power in right UE) Skin: No rash on exposed areas, No ulcerations on exposed areas A/P: Assessment: Acute ischemic L-sided CVA, 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 The only history provided to me is that of traumatic head bleed. This presentation is with ischemic (thromboembolic ) CVA, as confirmed on MRI, that is likely related to patient's chronic atrial fib. There is no intracranial bleed on MRI of this admission. Therefore, it appears appropriate to initiate oral anticoag for further stroke prevention. Continue Eliquis Her heart rate currently appears controlled. Consider BB or CCB for vent rate control if that becomes an issue Dr. Moore discussed all of the above issues with her family, including the potential risks of OAC that include harmful bleeding. They understand and concur with this treatment plan Management of stroke all noncardiac issues is with Dr Otto JOHN (-) started for BP control Physician Assessment Physician Assessment Lungs: clear Cor: irreg A&R * As documented in our note above LUIS ALBERTO LOMELI COMMERCIAL PAINTER Feb 15, 2017 08:45 PATRICK MOORE MD FACP FAC CCDS Feb 15, 2017 13:33
[2017-02-15] MEDS ORDERED: lisINopril 10 MG (PRINIVIL) TAB PO SCH (09:00)
[2017-02-15] MEDS ORDERED: BRIMONIDINE 0.2% (ALPHAGAN) OPHTH SOLN 5 ML BTL OU SCH (09:00)
[2017-02-15] MEDS ORDERED: ACETAZOLAMIDE 500 MG PO SCH (09:00)
[2017-02-15] MEDS ORDERED: LEVOTHYROXINE 75 MCG (LEVOTHROID) TABLET PO SCH (09:00)
[2017-02-15] MEDS ORDERED: TIMOLOL MALEATE 0.5% 5 ML (TIMOPTIC) BTL OU SCH (09:00)
[2017-02-15] MEDS ORDERED: ATENOLOL 25 MG (TENORMIN) TAB PO SCH (09:00)
[2017-02-15] MEDS ORDERED: DIGOXIN 0.125 MG (LANOXIN) TAB PO SCH (09:00)
--- NOTE | 2017-02-15 10:15 | ECHOCARDIOGRAPHY REPORT ---
PROCEDURE PHYSICIAN: PATRICK MOORE DATE OF PROCEDURE: 02/13/2017 TWO DIMENSIONAL ECHOCARDIOGRAM REPORT PRIMARY PHYSICIAN: Dr. Otto OTHER PHYSICIAN: Dr. Vasquez REFERRING PHYSICIAN: ORDERING PHYSICIAN: Dr. Moore INDICATION FOR THE PROCEDURE: Cerebrovascular accident. MEASUREMENTS DERIVED VALUES LV DIAMETER (LAX) NORMALS NORMALS Diastolic 4.3 (3.6-5.2) Eject. Fract. (60%+/-6%) Systolic (2.3-3.9) Diastolic Vol. % Shortening (0.22-0.42) Systolic Vol. Aortic Root 2.8 IVS THICKNESS Diastolic 1.2 (0.6-1.1) LVPW THICKNESS Diastolic 1.1 (0.6-1.1) LA DIAMETER Systolic 3.6 (2.1-3.7) DESCRIPTION: 3 dimensional echocardiography shows normal global left ventricular systolic function with normal regional wall motion. Aortic, mitral and tricuspid valve leaflets show good leaflet excursion. Doppler imaging shows trivial mitral, tricuspid and aortic regurgitation. There is no Doppler evidence of any significant valvular stenosis. There appears to be moderate biatrial enlargement. Pulmonary artery systolic pressure is estimated to be approximately 25 mmHg. There is no evidence of significant intracardiac shunt on this transthoracic echocardiographic study. Inferior vena cava is moderately dilated but does seem to have inspiratory collapse. CONCLUSIONS: 1. Normal global left ventricular systolic function with an ejection fraction of approximately 60%. 2. Trivial to mild mitral, aortic, tricuspid and pulmonic regurgitation. 3. No evidence of significant valvular stenosis. 4. Moderate biatrial enlargement. 5. Pulmonary artery systolic pressure is estimated approximately 25 mmHg. Job ID: [id number] Dictated Date: 02/15/2017 09:39:47 Motorcycle Fabricator Date: 02/15/2017 10:07:12 / herve
--- NOTE | 2017-02-15 11:27 | Discharge Summary-Hospitalist ---
Diagnosis/Chief Complaint Date of Admission Feb 12, 2017 at 09:40 Date of Discharge Admission Diagnosis Assessment: Acute ischemic stroke with right sided facial droop and weakness hemiparesis h/o hemorrhagic CVA 2014 Chronic AF RA HTN Discharge Diagnosis Assessment: Acute ischemic stroke with right sided facial droop and weakness hemiparesis h/o hemorrhagic CVA 2014 Chronic AF RA HTN Plan: CVA protocol DVT Px Consult Dr Moore since likely an embolic stroke from AF? HTN management but avoid hypotension PT/OT/Speech MRI Reason Hospital Visit/Course CC: Acute Ischemic Stroke SW Review: Pt was last know well at 2200 yesterday. Pt was flaccid at 0630 this morning. Not a thrombolytic candidate. Hx of hemorrhagic CVA 2014. Patient Interview: Pt states her PCP is Dr. Enciso for [address] Vasquez was her PCP before Dr. Enciso and Dr Manzano. Physical exam was stable. Pt family states pt has AF and she is on meds for this condition. Pt states she goes to [facility]. Pt states she has been seeing Dr. Trevino, Cardiology. Pt states she is in pain. Pt will be given pain meds. Pt family states pt has RA. Palliative Care Review: Pt is a do not intubate. Scribed by Arnold Moore under the direct supervision of Dr. Briggs. Note from 02/15/17 Chart Review: Max fever 100.8, BP 148/73 Patient Interview: Pt is not willing to answer Dr. Rojas questions. Physical exam was stable. Scribed by Arnold Moore under the direct supervision of Dr. Briggs. No fever, vital signs stable, pleasant, sleepy Irregular irregular rhythm, clear to auscultation bilaterally with diminished due to poor excursion No edema Hospital course: Patient had an uneventful hospital course she sustained an ischemic CVA consistent with her findings of heme a parous os due to likely irregular heartbeat from atrial fibrillation but has a history of hemorrhagic CVA. Overall she was stable cardiology evaluated the patient placed her on Eliquis and monitored closely. MRI confirmed large infarct left hemisphere. She was deemed stable for inpatient rehabilitation to try to work on her deficit and will monitor closely in the meantime. Discharge Summary Discharge Physical Examination Allergies: Coded Allergies: iodine (Unverified Adverse Reaction, Unknown, 10/12/15) lidocaine (Unverified Adverse Reaction, Unknown, 10/12/15) Vitals & I&Os Vital Signs Date Time Temp Pulse Resp B/P (MAP) Pulse Ox O2 Delivery O2 Flow Rate FiO2 02/15/17 08:00 98.6 88 20 164/99 97 Room Air Discharge Home Medications: Active Scripts Active Lisinopril 10 Mg Tablet 10 Mg PO DAILY 30 Days Eliquis (Apixaban) 5 Mg Tablet 5 Mg PO Q12H 30 Days Reported Lumigan (Bimatoprost) 2.5 Ml Drops 1 Drop OD HS Combigan Eye Drops (Brimonidine Tartrate/Timolol) 5 Ml Drops 1 Drop OU BID Acetazolamide 500 Mg Capsule.er 500 Mg PO DAILY LAST FILLED #30 12-25-16 Cyclogyl (Cyclopentolate HCl) 2 Ml Drops 1 Drop OD DAILY Folic Acid 1 Mg Tablet 1 Mg PO BID Prednisolone Acetate 5 Ml Drops.susp 1 Drop OD QID Gabapentin 300 Mg Capsule 300 Mg PO BID Omeprazole 20 Mg Capsule.dr 20 Mg PO BID Levothyroxine Sodium 75 Mcg Tablet 75 Mcg PO DAILY Atenolol 25 Mg Tablet 12.5 Mg PO DAILY TAKES 1/2 (25MG) TABLET Digox (Digoxin) 125 Mcg Tablet 125 Mcg PO DAILY Methotrexate (Methotrexate Sodium) 2.5 Mg Tablet 25 Mg PO WEEK TAKES 10 (2.5MG) TABLETS Tramadol HCl 50 Mg Tablet 50 Mg PO Q4H PRN LAST FILLED #180 10-12-16 Simvastatin 40 Mg Tablet 40 Mg PO HS Instructions to patient/family Please see electonic discharge instructions given to patient. Clinical Quality Measures DVT/VTE Risk/Contraindication: Risk Factor Score Per Nursin RFS Level Per Nursing on Admit: 4+=Very High CECILLE BRIGGS DO Feb 15, 2017 11:27
[2017-02-15] MEDS ORDERED: APIX5TAB PO (11:29)
[2017-02-15] MEDS ORDERED: LISI10TA2 PO (11:29)
[2017-02-15 12:00] VITALS: BP 138/88
[2017-02-15] MEDS ORDERED: LATANOPROST 0.005% (XALATAN) OPHTH SOLN 2.5 ML OD SCH (21:00)
--- NOTE | 2017-02-22 15:55 | Diagnostic Imaging Report ---
INDICATION: Screening for MRI. DISCUSSION: Two views of the orbits were obtained, no comparison. No acute osseous abnormality identified. No unexpected radiopaque foreign body noted. Dental amalgam is present. Paranasal sinuses are unremarkable. IMPRESSION: 1. Negative orbits. Dictated by: Dictated on workstation # [id number]
--- OUTSIDE RECORDS SUMMARY | 2017-03-07 08:03 | XMS REPORT | Continuity of Care Document ---
Author Author [facility] Organization [facility] Address Unknown Phone Unavailable Care Team Providers Care Software Asset Management Analyst Name Role Phone Jayne Vasquez PCP [phone] Source Comments Some departments are not documenting in the electronic medical record. If you do not see the information that you expected, contact Release of Information in the Health Information Management department at [phone] for further assistance in locating additional records.[facility] Active Allergies and Adverse Reactions Allergen Noted Date Severity Reactions Comments Iodine 02/26/2015 Low UNKNOWN Other 02/26/2015 Low UNKNOWN Any "cane" medication Current Medications Prescription Sig. Disp. Refills Start End Date Status Date furosemide (LASIX) 20 mg Take 20 mg by mouth Active tablet daily. atenolol (TENORMIN) 25 mg Take 25 mg by mouth Active tablet daily. timolol (TIMOPTIC) 0.25 % Place 1 Drop into or Active ophthalmic solution around eye(s) twice daily. docusate (COLACE) 100 mg Take 100 mg by mouth Active capsule twice daily. latanoprost (XALATAN) Place 1 Drop into or Active 0.005 % ophthalmic around eye(s) at bedtime solution daily. digoxin (LANOXIN) 125 mcg Take 0.125 mg by mouth Active tablet daily. potassium chloride SR Take 10 mEq by mouth Active (K-DUR) 10 mEq tablet daily. brinzolamide(+) (AZOPT) 1 1 Drop three times daily. Active % ophthalmic suspension omeprazole DR(+) Take 20 mg by mouth Active (PRILOSEC) 20 mg capsule daily. aspirin EC 81 mg tablet Take 81 mg by mouth Active daily. METHOTREXATE SODIUM Take 2.5 mg by mouth. Active (METHOTREXATE (ANTI-RHEUMATIC) PO) folic acid (FOLVITE) 1 mg Take 1 mg by mouth daily. Active tablet traMADol (ULTRAM) 50 mg Take 50 mg by mouth every Active tablet 6 hours as needed for Pain. simvastatin (ZOCOR) 40 mg Take 40 mg by mouth at Active tablet bedtime daily. levothyroxine (SYNTHROID) Take 75 mcg by mouth Active 75 mcg tablet daily. Active Problems Problem Noted Date Dizziness 02/26/2015 Vertigo 02/26/2015 Social History Tobacco Use Types Packs/Day Years Used Date Never Smoker Smokeless Tobacco: Never Used Alcohol Use Drinks/Week oz/Week Comments No Last Filed Vital Signs Vital Sign Reading Time Taken Blood Pressure 136/80 02/26/2015 3:23 PM CDT Pulse 56 02/26/2015 3:23 PM CDT Temperature 36.6 C (97.9 F) 02/26/2015 2:04 PM CDT Respiratory Rate - - Height 1.626 m (5' 4") 02/26/2015 2:04 PM CDT Weight 72.576 kg (160 lb) 02/26/2015 2:04 PM CDT Body Mass Index 27.45 02/26/2015 2:04 PM CDT Oxygen Saturation 96% 02/26/2015 2:04 PM CDT Plan of Care Health Maintenance Due Date Last Done Comments Physical (Comprehensive) 1942 Exam Pertussis Vaccine 1946 Tetanus Vaccine 1952 Shingles Vaccine 1995 Osteoporosis Screening 2000 Prevnar/Pneumovax (#1) 2000 Influenza Vaccine 07/16/2017 Results from Last 3 Months Not on file
--- OUTSIDE RECORDS SUMMARY | 2017-03-07 08:03 | XMS REPORT | Continuity of Care Document ---
Author Author [facility] Organization [facility] Address Unknown Phone Unavailable Allergies Active Description Code Type Severity Reaction Onset Reported/Identified Relationship to Patient Clinical Status Yes iodine [id number] Drug Allergy Unknown N/A 10/12/2015 Yes lidocaine [id number] Drug Allergy Unknown N/A 10/12/2015 Medications Problems Date Dx Coded Attending Type Code Diagnosis Diagnosed By 03/04/2015 CITLALI PARHAM, ROSANGELA Ot 780.4 03/05/2015 CITLALI PARHAM, ROSANGELA Ot 780.4 03/07/2015 CITLALI PARHAM, ROSANGELA Ot 780.4 04/13/2015 CITLALI PARHAM, ROSANGELA Ot 780.4 04/13/2015 CITLALI PARHAM, ROSANGELA Ot 794.09 05/01/2015 CITLALI PARHAM, ROSANGELA Ot 780.4 05/01/2015 CITLALI PARHAM, ROSANGELA Ot 794.09 10/12/2015 XAVIER SCOTT APRN Ot I51.7 CARDIOMEGALY 10/12/2015 XAVIER SCOTT APRN Ot S01.81XA LACERATION W/O FOREIGN BODY OF OTH PART 10/12/2015 XAVIER SCOTT APRN Ot S06.5X9A TRAUM SUBDR HEM W LOC OF UNSP DURATION , 10/12/2015 XAVIER SCOTT APRN Ot S06.6X9A TRAUM SUBRAC HEM W LOC OF UNSP DURATION , 10/12/2015 XAVIER SCOTT APRN Ot S22.41XA MULTIPLE FRACTURES OF RIBS, RIGHT SIDE , 10/12/2015 XAVIER SCOTT APRN Ot W01.0XXA FALL SAME LEV FROM SLIP/TRIP W/O STRIKE 10/12/2015 XAVIER SCOTT APRN Ot Y92.[address] IN [facility] NON-INSTITUT ( PRIVATE 10/12/2015 XAVIER SCOTT APRN Ot Y99.8 OTHER EXTERNAL CAUSE STATUS 02/12/2017 CITLALI PARHAM, ROSANGELA Ot 780.4 DIZZINESS AND GIDDINESS 02/12/2017 CITLALI PARHAM, ROSANGELA Ot 780.4 DIZZINESS AND GIDDINESS 02/12/2017 CITLALI PARHAM, ROSANGELA Ot 794.09 ABN FARMER AND GRAZIER FUNCT STUDY NEC 02/12/2017 BRIGGS DO, CECILLE Ot I63.9 CEREBRAL INFARCTION, UNSPECIFIED 02/12/2017 BRIGGS DO, CECILLE Ot I63.9 CEREBRAL INFARCTION, UNSPECIFIED 02/13/2017 BRIGGS DO, CECILLE Ot I63.9 CEREBRAL INFARCTION, UNSPECIFIED 02/13/2017 BRIGGS DO, CECILLE Ot I63.9 CEREBRAL INFARCTION, UNSPECIFIED 02/14/2017 BRIGGS DO, CECILLE Ot I63.9 CEREBRAL INFARCTION, UNSPECIFIED 02/15/2017 BRIGGS DO, CECILLE Ot I63.9 CEREBRAL INFARCTION, UNSPECIFIED 02/15/2017 BRIGGS DO CECILLE Ot E03.9 HYPOTHYROIDISM, UNSPECIFIED 02/15/2017 BRIGGS DO CECILLE Ot G81.91 HEMIPLEGIA, UNSPECIFIED AFFECTING RIGHT 02/15/2017 CHESTER GALINDO CECILLE Ot H40.9 UNSPECIFIED GLAUCOMA 02/15/2017 [place] DO CECILLE Ot I10 ESSENTIAL (PRIMARY) HYPERTENSION 02/15/2017 [place] DO CECILLE Ot I48.1 PERSISTENT ATRIAL FIBRILLATION 02/15/2017 [place] DO CECILLE Ot I48.2 CHRONIC ATRIAL FIBRILLATION 02/15/2017 [place] DO CECILLE Ot 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 02/15/2017 [place] GALINDO CECILLE Ot I63.9 CEREBRAL INFARCTION, UNSPECIFIED 02/15/2017 CHESTER GALINDO CECILLE Ot K21.9 GASTRO-ESOPHAGEAL REFLUX DISEASE WITHOUT 02/15/2017 CHESTER GALINDO CECILLE Ot M06.9 RHEUMATOID ARTHRITIS, UNSPECIFIED 02/15/2017 CHESTER GALINDO CECILLE Ot R29.810 FACIAL WEAKNESS 02/15/2017 CHESTER GALINDO CECILLE Ot R47.01 APHASIA 02/15/2017 [place] GALINDO CECILLE Ot Z66 DO NOT RESUSCITATE 02/15/2017 [place] GALINDO CECILLE Ot Z86.73 PRSNL HX OF TIA (TIA), AND CEREB INFRC W 02/15/2017 [place] GALINDO CECILLE Ot Z99.81 DEPENDENCE ON SUPPLEMENTAL OXYGEN 02/23/2017 KAREN PARHAMJESSI Ot E03.9 HYPOTHYROIDISM, UNSPECIFIED 02/23/2017 JESSI JONES MD, Ot E87.6 HYPOKALEMIA 02/23/2017 JESSI JONES MD, Ot I10 ESSENTIAL (PRIMARY) HYPERTENSION 02/23/2017 JESSI JONES MD, Ot I48.1 PERSISTENT ATRIAL FIBRILLATION 02/23/2017 JESSI JONES MD, Ot I48.2 CHRONIC ATRIAL FIBRILLATION 02/23/2017 JESSI JONES MD, Ot I69.320 APHASIA FOLLOWING CEREBRAL INFARCTION 02/23/2017 JESSI JONES MD, Ot I69.351 HEMIPLGA FOLLOWING CEREBRAL INFRC AFF RI 02/23/2017 JESSI JONES MD, Ot I69.392 FACIAL WEAKNESS FOLLOWING CEREBRAL INFAR 02/23/2017 JESSI JONES MD, Ot K21.9 GASTRO-ESOPHAGEAL REFLUX DISEASE WITHOUT 02/23/2017 JESSI JONES MD, Ot M06.9 RHEUMATOID ARTHRITIS, UNSPECIFIED Procedures Results Test Result Range Complete blood count (CBC) with automated white blood cell (WBC) differential - 02/13/17 02:51 Blood leukocytes automated count (number/volume) 11.3 10*3/ uL 4.3-11.0 Blood erythrocytes automated count (number/volume) 4.06 10*6 /uL 4.35-5.85 Venous blood hemoglobin measurement (mass/volume) 13.1 g/dL 11.5-16.0 Blood hematocrit (volume fraction) 40 % 35-52 Automated erythrocyte mean corpuscular volume 97 [foz_us] 80-99 Automated erythrocyte mean corpuscular hemoglobin (mass per erythrocyte) 32 pg 25-34 Automated erythrocyte mean corpuscular hemoglobin concentration measurement ( mass/volume) 33 g/dL 32-36 Automated erythrocyte distribution width ratio 14.0 % 10.0-14.5 Automated blood platelet count (count/volume) 261 10*3/uL 130-400 Automated blood platelet mean volume measurement 9.6 [foz_us ] 7.4-10.4 Automated blood neutrophils/100 leukocytes 83 % 42-75 Automated blood lymphocytes/100 leukocytes 12 % 12-44 Blood monocytes/100 leukocytes 4 % 0-12 Automated blood eosinophils/100 leukocytes 0 % 0-10 Automated blood basophils/100 leukocytes 0 % 0-10 Blood neutrophils automated count (number/volume) 9.4 10*3 1.8-7.8 Blood lymphocytes automated count (number/volume) 1.4 10*3 1.0-4.0 Blood monocytes automated count (number/volume) 0.5 10*3 0.0-1.0 Automated eosinophil count 0.0 10*3/uL 0.0-0.3 Automated blood basophil count (count/volume) 0.0 10*3/uL 0.0-0.1 Comprehensive metabolic panel - 02/13/17 02:51 Serum or plasma sodium measurement (moles/volume) 139 mmol/ L 135-145 Serum or plasma potassium measurement (moles/volume) 3.3 mmol/L 3.6-5.0 Serum or plasma chloride measurement (moles/volume) 105 mmol /L 98-107 Carbon dioxide 23 mmol/L 21-32 Serum or plasma anion gap determination (moles/volume) 11 mmol/L 5-14 Serum or plasma urea nitrogen measurement (mass/volume) 12 mg/dL 7-18 Serum or plasma creatinine measurement (mass/volume) 0.58 mg /dL 0.60-1.30 Serum or plasma urea nitrogen/creatinine mass ratio 21 NRG Serum or plasma creatinine measurement with calculation of estimated glomerular filtration rate > NRG Serum or plasma glucose measurement (mass/volume) 119 mg/dL 70-105 Serum or plasma calcium measurement (mass/volume) 8.8 mg/dL 8.5-10.1 Serum or plasma total bilirubin measurement (mass/volume) 1.2 mg/dL 0.1-1.0 Serum or plasma alkaline phosphatase measurement (enzymatic activity/volume) 65 U/L 40-136 Serum or plasma aspartate aminotransferase measurement (enzymatic activity/ volume) 21 U/L 5-34 Serum or plasma alanine aminotransferase measurement (enzymatic activity/volume ) 15 U/L 0-55 Serum or plasma protein measurement (mass/volume) 6.8 g/dL 6.4-8.2 Serum or plasma albumin measurement (mass/volume) 3.8 g/dL 3.2-4.5 Magnesium - 02/13/17 02:51 Magnesium 2.1 mg/dL 1.8-2.4 Lipid 1996 panel - 02/13/17 02:51 Serum or plasma triglyceride measurement (mass/volume) 120 mg/dL <150 Serum or plasma cholesterol measurement (mass/volume) 191 mg /dL < 200 Serum or plasma cholesterol in HDL measurement (mass/volume) 59 mg/dL 40-60 Cholesterol in LDL [mass/volume] in serum or plasma by direct assay 109 mg/dL 1-129 Serum or plasma cholesterol in VLDL measurement (mass/volume) 24 mg/dL 5-40 THYROID STIMULATING HORMONE - 02/13/17 02:51 THYROID STIMULATING HORMONE 0.72 u[iU]/mL 0.35-4.94 Complete blood count (CBC) with automated white blood cell (WBC) differential - 02/16/17 06:10 Blood leukocytes automated count (number/volume) 9.1 10*3/ uL 4.3-11.0 Blood erythrocytes automated count (number/volume) 4.14 10*6 /uL 4.35-5.85 Venous blood hemoglobin measurement (mass/volume) 13.3 g/dL 11.5-16.0 Blood hematocrit (volume fraction) 41 % 35-52 Automated erythrocyte mean corpuscular volume 99 [foz_us] 80-99 Automated erythrocyte mean corpuscular hemoglobin (mass per erythrocyte) 32 pg 25-34 Automated erythrocyte mean corpuscular hemoglobin concentration measurement ( mass/volume) 33 g/dL 32-36 Automated erythrocyte distribution width ratio 14.6 % 10.0-14.5 Automated blood platelet count (count/volume) 243 10*3/uL 130-400 Automated blood platelet mean volume measurement 9.8 [foz_us ] 7.4-10.4 Automated blood neutrophils/100 leukocytes 68 % 42-75 Automated blood lymphocytes/100 leukocytes 18 % 12-44 Blood monocytes/100 leukocytes 11 % 0-12 Automated blood eosinophils/100 leukocytes 3 % 0-10 Automated blood basophils/100 leukocytes 1 % 0-10 Blood neutrophils automated count (number/volume) 6.2 10*3 1.8-7.8 Blood lymphocytes automated count (number/volume) 1.6 10*3 1.0-4.0 Blood monocytes automated count (number/volume) 1.0 10*3 0.0-1.0 Automated eosinophil count 0.3 10*3/uL 0.0-0.3 Automated blood basophil count (count/volume) 0.1 10*3/uL 0.0-0.1 Comprehensive metabolic panel - 02/16/17 06:10 Serum or plasma sodium measurement (moles/volume) 142 mmol/ L 135-145 Serum or plasma potassium measurement (moles/volume) 2.8 mmol/L 3.6-5.0 Serum or plasma chloride measurement (moles/volume) 109 mmol /L 98-107 Carbon dioxide 21 mmol/L 21-32 Serum or plasma anion gap determination (moles/volume) 12 mmol/L 5-14 Serum or plasma urea nitrogen measurement (mass/volume) 18 mg/dL 7-18 Serum or plasma creatinine measurement (mass/volume) 0.65 mg /dL 0.60-1.30 Serum or plasma urea nitrogen/creatinine mass ratio 28 NRG Serum or plasma creatinine measurement with calculation of estimated glomerular filtration rate > NRG Serum or plasma glucose measurement (mass/volume) 90 mg/dL 70-105 Serum or plasma calcium measurement (mass/volume) 8.8 mg/dL 8.5-10.1 Serum or plasma total bilirubin measurement (mass/volume) 0.9 mg/dL 0.1-1.0 Serum or plasma alkaline phosphatase measurement (enzymatic activity/volume) 92 U/L 40-136 Serum or plasma aspartate aminotransferase measurement (enzymatic activity/ volume) 35 U/L 5-34 Serum or plasma alanine aminotransferase measurement (enzymatic activity/volume ) 28 U/L 0-55 Serum or plasma protein measurement (mass/volume) 6.4 g/dL 6.4-8.2 Serum or plasma albumin measurement (mass/volume) 3.5 g/dL 3.2-4.5 Whole blood basic metabolic panel - 02/17/17 05:20 Serum or plasma sodium measurement (moles/volume) 144 mmol/ L 135-145 Serum or plasma potassium measurement (moles/volume) 3.7 mmol/L 3.6-5.0 Serum or plasma chloride measurement (moles/volume) 114 mmol /L 98-107 Carbon dioxide 20 mmol/L 21-32 Serum or plasma anion gap determination (moles/volume) 10 mmol/L 5-14 Serum or plasma urea nitrogen measurement (mass/volume) 25 mg/dL 7-18 Serum or plasma creatinine measurement (mass/volume) 0.65 mg /dL 0.60-1.30 Serum or plasma urea nitrogen/creatinine mass ratio 38 NRG Serum or plasma creatinine measurement with calculation of estimated glomerular filtration rate > NRG Serum or plasma glucose measurement (mass/volume) 90 mg/dL 70-105 Serum or plasma calcium measurement (mass/volume) 8.8 mg/dL 8.5-10.1 Magnesium - 02/17/17 05:20 Magnesium 2.0 mg/dL 1.8-2.4 Complete urinalysis with reflex to culture - 02/18/17 14:20 Urine color determination YELLOW NRG Urine clarity determination CLEAR NRG Urine pH measurement by test strip 6 5- 9 Specific gravity of urine by test strip 1.025 1.016-1.022 Urine protein assay by test strip, semi-quantitative 1+ NEGATIVE Urine glucose detection by automated test strip NEGATIVE NEGATIVE Erythrocytes detection in urine sediment by light microscopy 1+ NEGATIVE Urine ketones detection by automated test strip NEGATIVE NEGATIVE Urine nitrite detection by test strip NEGATIVE NEGATIVE Urine total bilirubin detection by test strip NEGATIVE NEGATIVE Urine urobilinogen measurement by automated test strip (mass/volume) NORMAL NORMAL Urine leukocyte esterase detection by dipstick 1+ NEGATIVE Automated urine sediment erythrocyte count by microscopy (number/high power field) NONE NRG Automated urine sediment leukocyte count by microscopy (number/high power field ) RARE NRG Bacteria detection in urine sediment by light microscopy FEW NRG Squamous epithelial cells detection in urine sediment by light microscopy 2-5 NRG Crystals detection in urine sediment by light microscopy PRESENT NRG Casts detection in urine sediment by light microscopy NONE NRG Mucus detection in urine sediment by light microscopy NEGATIVE NRG Complete urinalysis with reflex to culture NO NRG Calcium oxalate crystals detection in urine sediment by light microscopy LARGE NRG Encounters ACCT No. Visit Date/Time Discharge Status Pt. Type Provider Facility Loc./Unit Complaint [id number] 02/12/2017 09:40:00 2016 13:00:00 DIS Outpatient CECILLE BRIGGS DO [facility] 4TH STROKE [id number] 10/12/2015 16:36:00 2014 18:55:00 DIS Emergency XAVIER SCOTT APRN [facility] ER CHIN LACERATION [id number] 03/07/2015 15:02:00 2014 23:59:59 CLS Outpatient ROSANGELA GODWIN MD [facility] RAD DIZZINESS [id number] 03/01/2015 13:31:00 2014 23:59:59 CLS Outpatient ROSANGELA GODWIN MD [facility] RAD DIZZINESS [id number] 02/15/2017 12:45:00 ACT Inpatient KAREN PARHAM, JESSI Andre [facility] IRF CVA
[2017-03-10] MEDS ORDERED: APIX5TAB PO (19:21)
[2017-03-10] MEDS ORDERED: LISI10TA2 PO (19:21)
[2017-03-10] MEDS ORDERED: TIMO5DRO5 OU (19:21)
== END 2017-02-15 13:00 | DRG 65 ==
LOC: ICU 09:40 → 4TH 02-13 16:55
PROVIDERS: ADMIT Internal Medicine; ATTEND Internal Medicine
DX: I63.411 Cerebral infarction due to embolism of right middle cerebral artery (principal); I48.1 Persistent atrial fibrillation; I48.2 Chronic atrial fibrillation; G81.91 Hemiplegia, unspecified affecting right dominant side; R47.01 Aphasia; R29.810 Facial weakness; M06.9 Rheumatoid arthritis, unspecified; K21.9 Gastro-esophageal reflux disease without esophagitis; I10 Essential (primary) hypertension; Z66 Do not resuscitate; E03.9 Hypothyroidism, unspecified; H40.9 Unspecified glaucoma; Z99.81 Dependence on supplemental oxygen; Z86.73 Personal history of transient ischemic attack (TIA), and cerebral infarction without residual deficits
CPT/HCPCS: 36415; 70250; 70551; 71010; 80053; 80061; 83735; 84443; 85025; 93005; 93306; 93880

== ENCOUNTER 2017-02-15 11:49 | Inpatient (IN) | payer MEDICARE ==
[~2017-02-15] VITALS: Ht 165.1 cm; Wt 65.3 kg
[~2017-02-15 11:49] MED LIST changes: +ACET500C PO; +APIX5TAB PO; +BIMA2.5D4 OD; +BRIM5DRO OU; +CYCL2DRO3 OD; +FOLI1TAB24 PO; +GABA-488 PO; +LISI10TA2 PO; +PRED5DRO17 OD
[2017-02-15] MEDS ORDERED: NS IV 1000 ML 1,000 ML IV SCH (13:30)
[2017-02-15 14:00] VITALS: BP 118/76
[2017-02-15] MEDS: BRIMONIDINE 0.2% (ALPHAGAN) OPHTH SOLN 5 ML BTL OU SCH ×2 (15:00→20:57)
[2017-02-15] MEDS: prednisoLONE 1% OPTH (PRED FORTE) 5 ML BTL OD SCH ×3 (15:00→21:00)
--- NOTE | 2017-02-15 15:05 | Physical Therapy Evaluation ---
PT Evaluation-General Medical Diagnosis Admission Date Feb 15, 2017 at 12:45 Medical Diagnosis: CVA Onset Date: Feb 12, 2017 Therapy Diagnosis Therapy Diagnosis: weakness right; abn gait Height/Weight Height (Feet): 5 Height (Inches): 5.00 Weight (Pounds): 145 Weight (Ounces): 5.0 Precautions Precautions/Isolations: Fall Prevention, Standard Precautions Weight Bear Status Location Restriction: LE Bilateral Referral Physician: Florentin Reason for Referral: Evaluation/Treatment Medical History Pertinent Medical History: Atrial Fib, GERD, HTN, Hypothroidism, Rheumatoid Arthritis Additional Medical History CVA 2014 Current History Admitted to acute with a subarachnoid hemorrhage on 02/12/17. Transferred to ARU for continued therapy services. Reviewed History: Yes Social History Home: Single Level Current Living Status: Spouse Entry Into Home: Ramp PT Steps Inside Home: 3 (with rail on left going down) Prior/Core FIM Prior Level of Function Functional [place] Measure 0=Not Assessed/NA 4=Minimal Assistance 1=Total Assistance 5=Supervision or Setup 2=Maximal Assistance 6=Modified [place] 3=Moderate Assistance 7=Complete [place] Bed Mobility: 7 Transfers (B,C,W/C) (FIM): 6 Gait: 6 (fWW) This patient was mod indep with gait in her home; has to go down 3 steps to get in her laundry room. Spouse reports she occas goes to the grocery store and reports she still drives. Spouse reports she was able to cook and clean at PLOF PT Evaluation-Current Subjective Expressive aphasia. Limited verbalization throughout treatment. Pain Numeric Pain Scale: 0-No Pain Location: No Pain Reported Comment: Pt does not appear to have pain. Pt/Family Goals Patient's spouse reports his goal is for her to return home with him. Objective Patient Orientation: Non-Verbal/Aphasic Problem Solving: Fair Attachments: IV ROM/Strength ROM Lower Extremities WFL Strenght Lower Extremities Left LE strength grossly 4/5; right LE strength grossly 3/5. Difficult to fully assess as pt has some difficulty following cues to effectively participate in strength testing. Integumentary/Posture Integumentary Intact Bowel Incontinence: Yes Bladder Incontinence: Yes Posture Able to attain cervical and thoracic neutral but tends to rest in forward head with head down and rounded shoulders. Neuromuscular (Tone, Coordination, Reflexes) Slight increased tone right LE with intentional movement. Patellar reflex on the right greater than the left. Unable to assess sensation. 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 Transfers Functional [place] Measure 0=Not Assessed/NA 4=Minimal Assistance 1=Total Assistance 5=Supervision or Setup 2=Maximal Assistance 6=Modified [place] 3=Moderate Assistance 7=Complete IndependenceIRFPAI Quality Coding Scale 6 Independent with activity with or without an assistive device 5 Patient requires set up or clean up by helper. Patient completes activity by themselves 4 Supervision or touching assist (CGA). [place] provide cues , steadying assist 3 The helper provides less than half the effort to complete the activity 2 The helper provides more than half the effort to complete the activity 1 Dependent. The helper does all the effort to complete an activity 7 Patient refused to complete or attempt activity 9 The patient did not perform the activity before the current illness or injury 88 Not attempted due to Medical conditions or safety concerns Transfers (B, C, W/C) (FIM): 2 Scootin Rollin Roll Left to Right (QC): 3 Supine to/from Sit: 3 (assist with both legs out and into bed; skilled cues as well) Sit to/from Stand: 3 bed t/f WC(FIM only if WC use): 3 Sit to Lying (QC): 3 Lying to Sitting/Side of Bed(Q: 3 Sit to Stand (QC): 3 Chair/[id number]-[id number] Xfer(QC): 3 Car Transfer (QC): 88 (unsafe to attempt at this tiem.) Gait Does the Patient Walk?: Yes Mode of Locomotion: Walk Anticipated Mode of Locomotion: Walk Gait (FIM): 2 Distance (FIM): 1=up to 49 ft Walk 10 feet (QC): 3 (mod assist for balance, maintenance of walker and ) Walk 50 ft with 2 Turns(QC): 88 (unable to walk this distance) Walk 150 ft (QC): 88 Walking 10ft/uneven surface-QC: 88 (unsafe toa ttempt) Gait Level of Assist: 3 (mod assist at belt and assist with FWW) Gait Assistive Device: FWW Comments/Gait Description Head down, rounded shoulders, shuffled and with limited step length. Slow and tends to run into the wall or obstacles on the right. 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 ) 1 Step (curb) (QC): 88 4 Steps (QC): 88 12 Steps (QC): 88 If not tested on admit;explain Pt unable to follow cues effectively enough to attempt; limited ability to lift feet . Balance Sitting Static: Fair Sitting Dynamic: Fair Standing Static: Fair Standing Dynamic: Fair Picking up an Object (QC): 88 (unable) Treatment Co Treat with OT due to complex CVA with multiple needs at this time. OT addressed feeding and use of UE's while PT addressed seated static and dynamic balance. Pt able to sit EOB at least 20 minutes while feeding herself (with assist of OT) and PT addressing balance and functional activity tolerance with righting reactions with balance pertebations. Pt also performed a toilet transfer with PT addressing sit to from stand transfers and static/dynamic standing balance while OT addressed jose rafael care and clothing management. Pt requires mod assist to come to a stand with heavy cues for hand placement and sequencing. Min assist for standing dynamic balance activities. Pt did ambulated 30 ft and 20 ft with FWW with close CGA and skilled cues for attention to the right as well as assist with walker managemnet and skilled cuing for step length and foot clearance as well as posture. Pt in chair post treatment with chair alarm activated and needs met. Assessment/Needs Post CVA with right sided weakness, aphasia, decreased attention to the right and need for assist with all functional mobility. She will benefit from skilled PT services to address deficits and work to improve her function to allow her to return home with her spouse. Moderate complexity evaluation: Co Morbidities: CVA 2015, RA, spouse with limited ability to care for her once home, systems affected: R LE strength, balance, assist with gait and transfers, right neglect; decreased functional act tolerance; presents with a changing characteristic due to acute CVA. Rehab Potential: Good Post Rehab Potential-Barriers: RA; hx of CVA PT Short Term Goals Short Term Goals Time Frame: Mar 01, 2017 Transfers (B,C,W/C) (FIM): 4 Gait (FIM): 4 Distance (FIM): 3=150 ft Gait Assistive Device: FWW Stairs (FIM): 2 # of Steps: 4 PT Longterm Goals Sales And Marketing Manager Goals PT Longterm Goals Time Frame: March 15, 2017 Transfers (B,C,W/C) (FIM): 6 Sit to Lying (QC): 6 Lying-Sitting on Side/Bed(QC): 6 Sit to Stand (QC): 6 Roll Left to Right (QC): 6 Chair/Cnj-of-Sfium Xfer(QC): 6 Car Transfer (QC): 5 Does the Patient Walk: Yes Gait (FIM): 6 Gait distance (FIM): 3=150 ft Walk 10 feet (QC): 6 Walk 10ft-Uneven Surface(QC): 6 Walk 50ft with 2 Turns (QC): 6 Walk 150 ft (QC): 6 Gait Level of Assist: 6 Gait Assistive Device: FWW Does the Pt use WC or Scooter?: No Stairs (FIM): 5 # of Steps: 8 1 Step (curb) (QC): 6 4 Steps (QC): 5 12 Steps (QC): 9 Stairs Level Of Assist: 6 Picking up an Object (QC): 4 all LTG's set to allow pt to care for herself in her home with her spouse PT Plan Problem List Problem List: Activity Tolerance, Functional Strength, Safety, Balance, Gait, Transfer, Bed Mobility Treatment/Plan Treatment Plan: Continue Plan of Care Treatment Plan: Bed Mobility, Education, Functional Activity [place], Functional Strength, Group Therapy, Gait, Safety, Therapeutic Exercise, Transfers Treatment Duration: March 15, 2017 # of days/week 5-6 Visits Per Week: 10-15 Minutes/Day (M-F): 60-90 Minutes/Day (Sat/Anders): prn Pt/Family Agrees w/Plan: Yes Safety Risks/Education Patient Education: Transfer Techniques, Safety Issues Teaching Recipient: Patient Teaching Methods: Demonstration Response to Teaching: Reinforcement Needed Discharge Recommendations Therapy D/C Recommendations: Physical Therapy Home Care Time/GCodes Time In: 1315 Time Out: 1455 Total Billed Treatment Time: 90 Total Billed Treatment visit EVM [id number] (25 min) OT eval [id number] FA [id number] (65 min; co treat with OT) HUSSEIN JAMIL PT Feb 15, 2017 15:05
--- NOTE | 2017-02-15 15:24 | Occupational Therapy Eval ---
OT Evaluation-General/PLF Medical Diagnosis Admission Date Feb 15, 2017 at 12:45 Medical Diagnosis: CVA Onset Date: Feb 12, 2017 Therapy Diagnosis Therapy Diagnosis: weakness, decr self care, decr funct use R UE, decr funct mobility Height/Weight Height (Feet): 5 Height (Inches): 5.00 Weight (Pounds): 145 Weight (Ounces): 5.0 Precautions Precautions/Isolations: Fall Prevention, Standard Precautions Weight Bear Status Location Restriction: LE Bilateral Referral Physician: loni Referral Reason: Evaluation/Treatment Medical History Pertinent Medical History: Atrial Fib, GERD, HTN, Hypothroidism, Rheumatoid Arthritis Additional Medical History O2 use at night, hx TIA in 2015. reported "practically blind" in R eye from glaucoma. He also said she has "rheumatoid arthritis in almost every joint. " Current History Ischemic infarct involving L temporal, parietal and occipital lobes as well as the putamen in L basal nuclei. Reviewed History: Yes ADL-Prior Level of Function ADL PLOF Comments reported she has been able to manage her basic self care needs with only a little help, limited by RA. 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 History is primarily from her . Pt was unable to state if she was in any pain. She has been non-verbal but, when her tole her he was going home, she said, "Why?" Appearance A little drowsy, flat affect Mental Status/Objective Patient Orientation: Non-Verbal/Aphasic (Unable to verbalize) Attachments: IV Current Glasses/Contacts: Yes Hearing Aids: No Dentures/Partials: No Hand Dominance: Right Upper Extremity ROM Difficulty assessing active movement or strength due to inability to follow instructions. L UE WFL actively and passively. R UE WFL passively. Pt is able to actively reach her face with her R hand. Arthritic changes in hands Upper Extremity Coordination WFL L UE, impaired R UE Upper Extremity Sensation Unable to assess Upper Extremity Strength R UE approximately 4/5 but difficult to assess. L UE 2+ to 3-/r R shoulder, rest of UE grossly 3/5. Pt demonstrates more movement when doing automatic activities such as scratching her face or feeding herself. Pt had difficulty tracking visually past midline to the right and appears to have some visual field loss and/or neglect on R. She is also blind in R eye from glaucoma ADL-Treatment Functional [place] Measure 0=Not Assessed/NA 4=Minimal Assistance 1=Total Assistance 5=Supervision or Setup 2=Maximal Assistance 6=Modified [place] 3=Moderate Assistance 7=Complete IndependenceIRFPAI Quality Coding Scale 6 Independent with activity with or without an assistive device 5 Patient requires set up or clean up by helper. Patient completes activity by themselves 4 Supervision or touching assist (CGA). [place] provide cues , steadying assist 3 The helper provides less than half the effort to complete the activity 2 The helper provides more than half the effort to complete the activity 1 Dependent. The helper does all the effort to complete an activity 7 Patient refused to complete or attempt activity 9 The patient did not perform the activity before the current illness or injury 88 Not attempted due to Medical conditions or safety concerns Eating (FIM): 3 (Can hold spoon or fork when placed. Can get food to mouth but can't scoop or stab food adequately. Held bowl with L hand. Able to get a drink with mod assist from mug with lid) Eating (QC): 3 Grooming (FIM): 3 (Partially washed face and hands with washcloth. Could brush L side of hair and some on top but not R side.) Toileting (FIM): 1 (Unable to manage clothing or hygiene although she did attempt wo wipe. She was incontinent of urine and was unable to change brief herself) Toileting Hygiene (QC): 1 Toilet/Commode Transfer (FIM): 3 (On and off BSC. Needed help with R hand placement on FWW during transfer but she reached for it. ) Toilet Transfer (QC): 3 Other Treatments Co-tx with PT due to complexity of functional limitations. OT focused on R UE use and ADLs, while PT focused on mobility and balance. Pt was able to sit EOB for at least 20 minutes while she fed herself (with assistance) and did not show LOB. Pt's verbalizations during tx were limited and were more automatic than intentional. Pt left up in recliner, chair alarm on, all needs met. Education OT Patient Education: Modified ADL techniques, Purpose of tx/functional activities, Rehab process, Safety issues, Transfer techniques Teaching Recipient: Patient Teaching Methods: Demonstration, Discussion Response to Teaching: Reinforcement Needed OT Short Term Goals Short Term Goals Time Frame: Mar 01, 2017 Eating(FIM): 5 Grooming(FIM): 5 Bathing(FIM): 4 Upper Body Dressing(FIM): 4 Lower Body Dressing(FIM): 4 Toileting(FIM): 4 Toilet/Commode Transfer(FIM): 4 Shower Transfer(FIM): 4 Additional Short Term Goals: 2-Verbalize Understanding, 3-ImproveStrength/[place] 1=Demonstrate adherence to instructed precautions during ADL tasks. 2=Patient will verbalize/demonstrate understanding of assistive devices/ modifications for ADL. 3=Patient will improve strength/tolerance for activity to enable patient to perform ADL's. OT Plush Weaver Goals Plush Weaver Goals Time Frame: March 15, 2017 Eating (FIM): 6 Eating (QC): 6 Groomin Oral Hygiene (QC): 6 Bathing(FIM): 5 Shower/Bathe Self (QC): 5 Upper Body Dressing(FIM): 5 Upper Body Dressing (QC): 5 Lower Body Dressing(FIM): 5 Lower Body Dressing (QC): 5 On/Off Footwear (QC): 5 Toileting(FIM): 6 Toileting Hygiene (QC): 6 Toilet/Commode Transfer(FIM): 6 Toilet/Commode Transfer (QC): 6 Shower Transfer(FIM): 6 Additional Goals: 2-Verbalize Understanding, 3-ImproveStrength/[place] 1=Demonstrate adherence to instructed precautions during ADL tasks. 2=Patient will verbalize/demonstrate understanding of assistive devices/ modifications for ADL. 3=Patient will improve strength/tolerance for activity to enable patient to perform ADL's. OT Education/Plan Problem List/Assessment Assessment: Decreased UE Strength, Dependent Transfers, Impaired Bed Mobility, Impaired Cognition, Impaired Coordination, Impaired Funct Balance, Impaired Self -Care Skills, Visual-Perceptual Deficit Pt would benefit from skilled OT to increase her independence in basic self care to allow her to return home safely with family and to decrease caregiver burden Discharge Recommendations Plan/Recommendations: Continue POC Target Placement home Treatment Plan/Plan of Care Treatment,Training & Education: Yes Patient would benefit from OT for education, treatment and training to promote independence in ADL's, mobility, safety and/or upper extremity function for ADL' s. Plan of Care: ADL Retraining, Functional Mobility, Group Exercise/Act as Ind ( education, exercise, functional acitivities, communication, memory, problem solving), UE Funct Exercise/Act, UE Neuromus Re-Ed/Coord, Visual/Perceptual Retrain Treatment Duration: March 15, 2017 # of days/week 5-6 Visits Per Week: 10-11 Minutes/Day (M-F): 75-90 Minutes/Day (Sat/Anders): PRN Agreement: Yes Rehab Potential: Fair Time/GCodes Start Time: 13:40 Stop Time: 14:55 Total Time Billed (hr/min): 75 Billed Treatment Time visit, 10 minutes evaluation moderate intensity, 65 minutes ADL STEVEN JONES OT Feb 15, 2017 15:24
--- NOTE | 2017-02-15 15:42 | ST Dysphagia Evaluation ---
Speech Evaluation-General Medical Diagnosis CVA Onset Date: Feb 12, 2017 Therapy Diagnosis Therapy Diagnosis: Mild to Moderate Oropharyngeal Dysphagia Precautions Precautions: Aspiration Precautions/Isolations: Aspiration, Fall Prevention, Standard Precautions Referral Referring Physician: Dr. David Lerma Reason for Referral: Evaluation/Treatment Clinical Bedside Swallowing Evaluation Medical History Pertinent Medical History: Atrial Fib, GERD, HTN, Hypothroidism, Rheumatoid Arthritis Reviewed History: Yes Social History Current Living Status: Spouse Speech PLF/Current-Dysphagia Prior Level of Function Due to the patient's severe expressive aphasia, prior level of function is unknown to this clinician. Subjective The patient was recently admitted to [facility] following a CVA. The patient was seated upright in recliner upon entrance. The patient greeted the clinician and agreed to participate in the dysphagia evaluation on this date. 02/13/17: CXR: Cardiomegaly and minimal bibasilar subsegmental atelectasis and/or pneumonitis. Cognitive Status Patient Orientation: Non-Verbal/Aphasic Oral Motor Skills Dentition: Natural Current Food Consistancy: Mechanical Soft, Thin Liquids Ability to Follow Directions: Poor Oral Expression Ability: Severe Impairment Face Facial Symmetry: Asymmetrical (Right facial droop) Oral-Facial Assessment Oral-Facial Dentition: Normal Labial Seal Description: Droops Right Smile: Droops Right Puff Cheeks: Reduced Strength (Right) Patient did not demonstrate lingual protrusion upon request. Volitional Dry Swallow: No Voluntary Cough: No Can Clear Throat Volitionally: No Dysphagia Evaluation Consistencies Presented: Regular, Thin Liquid, Mechanical Soft, [place] Thick Liquid, Pureed Oral Phase: Anterior Spillage, Unable to Suck Straw (Intermittently) Anterior spillage was noted of thin liquids through the right labial side. Additionally, the patient demonstrated intermittent difficulty drawing liquid through straw. Pharyngeal Phase: Clears Throat, Reduced Laryngeal Elevation Funct. Velo/Pharyngeal Symptom: Cough After Swallow - Thin Liquid (via teaspoon, cup sip, straw): The patient demonstrated an immediate cough following teaspoons, cup sips, and straw sips of thin liquid. - [place]-Thick Liquid (via teaspoon, cup sip, straw sip), puree, mechanical soft , solid: No signs/symptoms of aspiration were demonstrated with multiple boluses of nectar-thick liquid, puree, mechanical soft, or solid consistencies tested. Dietary Recommendations: Regular Liquid Recommendations: [place] Consistancy Swallowing Precautions: Decreased Bolus 1/2 Tsp, Small Bites and Sips, Sitting 90 Degrees 30 Post Intake 1. Present food and liquid to strong, left oral side. Dysphagia Evaluation Summary Moderate oropharyngeal dysphagia characterized by reduced labial strength (right ) and decreased laryngeal elevation. Speech Short Term Goals Short Term Goals Short Term Goals 1. The patient will demonstrate swallowing strategies with 80% accuracy and mild clinician verbal cueing. 2. The patient will demonstrate dysphagia strengthening exercises with 80% accuracy and mild clinician verbal cueing. Time Frame-STG: Two Weeks Speech Assisted Goals Assisted Goals 1. The patient will tolerate the least restrictive diet without signs/symptoms of aspiration or laryngeal penetration. Time Frame: Four Weeks Speech-Plan Treatment Plan Speech Therapy Treatment Plan: Continue Plan of Care Continue skilled speech intervention to strengthen laryngeal, base of tongue, and pharyngeal musculature. Treatment Duration: March 15, 2017 # of days/week Five Visits Per Week: Five Minutes/Day (M-F): 30 Rehab Potential: Guarded Safety Risks/Education Teaching Recipient: Patient Teaching Methods: Demonstration, Handout, Discussion Response to Teaching: Unable to Return Demonstration, Reinforcement Needed Education Topics Provided: Results, Recommendations, Swallowing Strategies (swallowing precaution bracelet and sign posted in room) Time Speech Therapy Time In: 15:15 Speech Therapy Time Out: 15:30 Total Billed Time: 15 Billed Treatment Time 1ADDIE ELIZABETH Feb 15, 2017 15:42
[2017-02-15 17:15] VITALS: BP 131/75
[2017-02-15] MEDS: APIXABAN 5 MG (ELIQUIS) TABLET PO SCH (20:52)
[2017-02-15] MEDS: GABAPENTIN 300 MG (NEURONTIN) CAP PO SCH (20:53)
[2017-02-15] MEDS: PANTOPRAZOLE 20 MG TABLET (PROTONIX) PO SCH (20:53)
[2017-02-15] MEDS: FOLIC ACID 1 MG TAB PO SCH (20:53)
[2017-02-15] MEDS: SIMvastatin 40 MG (ZOCOR) TAB PO SCH (20:53)
[2017-02-15] MEDS: TIMOLOL MALEATE 0.5% 5 ML (TIMOPTIC) BTL OU SCH (20:57)
[2017-02-15] MEDS: LATANOPROST 0.005% (XALATAN) OPHTH SOLN 2.5 ML OD SCH (20:58)
[2017-02-16 05:10] VITALS: BP 114/75
[2017-02-16] MEDS: LEVOTHYROXINE 75 MCG (LEVOTHROID) TABLET PO SCH (06:03)
[2017-02-16 06:37] LABS: BASOPHILS # (AUTO) 0.1 10^3/uL (0.0-0.1); BASOPHILS % (AUTO) 1 % (0-10); EOSINOPHILS # (AUTO) 0.3 10^3/uL (0.0-0.3); EOSINOPHILS % (AUTO) 3 % (0-10); LYMPHOCYTES # (AUTO) 1.6 X 10^3 (1.0-4.0); LYMPHOCYTES % (AUTO) 18 % (12-44); MEAN CORPUSCULAR HEMOGLOBIN 32 PG (25-34); MEAN CORPUSCULAR HGB CONC 33 G/DL (32-36); MEAN CORPUSCULAR VOLUME 99 FL (80-99); MEAN PLATELET VOLUME 9.8 FL (7.4-10.4); MONOCYTES % (AUTO) 11 % (0-12); NEUTROPHILS # (AUTO) 6.2 X 10^3 (1.8-7.8); NEUTROPHILS % (AUTO) 68 % (42-75); PLATELET COUNT 243 10^3/uL (130-400); RED BLOOD COUNT 4.14 10^6/uL (4.35-5.85); RED CELL DISTRIBUTION WIDTH 14.6 % (10.0-14.5); WHITE BLOOD COUNT 9.1 10^3/uL (4.3-11.0)
[2017-02-16 07:04] LABS: ALANINE AMINOTRANSFERASE 28 U/L (0-55); ALBUMIN 3.5 G/DL (3.2-4.5); ANION GAP 12 MMOL/L (5-14); ASPARTATE AMINO TRANSFERASE 35 U/L (5-34); BILIRUBIN,TOTAL 0.9 MG/DL (0.1-1.0); BLOOD UREA NITROGEN 18 MG/DL (7-18); BUN/CREATININE RATIO 28; CALCIUM 8.8 MG/DL (8.5-10.1); CARBON DIOXIDE 21 MMOL/L (21-32); CHLORIDE 109 MMOL/L (98-107); CREATININE SERUM 0.65 MG/DL (0.60-1.30); GFR ESTIMATED > 60; GLUCOSE 90 MG/DL (70-105); POTASSIUM 2.8 MMOL/L (3.6-5.0); SODIUM 142 MMOL/L (135-145); TOTAL PROTEIN 6.4 G/DL (6.4-8.2)
--- NOTE | 2017-02-16 08:34 | Diagnostic Imaging Report ---
INDICATION: Aspiration and fever PA and lateral views of the chest are obtained with comparison made to study of 02/13/2017. There is mild cardiomegaly. The lungs remain clear without evidence of pneumothorax or consolidation. There is no significant pleural fluid. IMPRESSION: Mild cardiomegaly. No acute abnormalities detected. Dictated by: Dictated on workstation # [id number]
[2017-02-16] MEDS: APIXABAN 5 MG (ELIQUIS) TABLET PO SCH ×2 (08:41→20:26)
[2017-02-16] MEDS: CYCLOPENTOLATE 1% (CYCLOGYL) 2 ML DROPS OD SCH (08:41)
[2017-02-16] MEDS: prednisoLONE 1% OPTH (PRED FORTE) 5 ML BTL OD SCH ×4 (08:41→20:26)
[2017-02-16] MEDS: TIMOLOL MALEATE 0.5% 5 ML (TIMOPTIC) BTL OU SCH ×2 (08:42→20:26)
[2017-02-16] MEDS: BRIMONIDINE 0.2% (ALPHAGAN) OPHTH SOLN 5 ML BTL OU SCH ×3 (08:42→20:26)
[2017-02-16] MEDS: GABAPENTIN 300 MG (NEURONTIN) CAP PO SCH ×2 (08:42→20:26)
[2017-02-16] MEDS: FOLIC ACID 1 MG TAB PO SCH ×2 (08:42→20:26)
[2017-02-16] MEDS: DIGOXIN 0.125 MG (LANOXIN) TAB PO SCH (08:42)
[2017-02-16] MEDS: ATENOLOL 25 MG (TENORMIN) TAB PO SCH (08:43)
[2017-02-16] MEDS: PANTOPRAZOLE 20 MG TABLET (PROTONIX) PO SCH ×2 (08:43→20:26)
[2017-02-16] MEDS: lisINopril 10 MG (PRINIVIL) TAB PO SCH (08:43)
[2017-02-16] MEDS ORDERED: ACETAZOLAMIDE 500 MG PO SCH (09:00)
[2017-02-16] MEDS ORDERED: METHOTREXATE 2.5 MG TAB PO SCH (09:00)
[2017-02-16] MEDS ORDERED: KCL 20 MEQ TAB (K-DUR) PO NR ×2 (10:15→14:00)
--- NOTE | 2017-02-16 10:18 | Progress Note-Cardiology ---
Cardiology SOAP Progress Note Subjective: Sitting up in a chair at the bedside. Gaze follows my movement. Does not interact much. Objective: I&O/Vital Signs Vital Sign - Last 12Hours 02/16/17 05:10 Temp 98.6 Pulse 72 Resp 16 B/P (MAP) 114/75 Pulse Ox 96 O2 Delivery Room Air Intake and Output 02/16/17 00:00 Intake Total 440 ml Balance 440 ml Weight (Pounds): 145 Weight (Ounces): 1.0 Weight (Calculated Kilograms): [id number] Constitutional: other (does not interact; slow to respond, but did say "OK" when instructed her we will monitor the heart) Cardiovascular: irregularly irregular, systolic murmur (soft [place] at cardiac base) Gastrointestional: No tender, soft, round, audible bowel sounds Extremities: No significant edema Neurologic/Psychiatric: other (0/5 R leg; 3/5 R UE) Skin: No ulcerations Results/Procedures: Labs Laboratory Tests 02/16/17 06:10: White Blood Count 9.1, Red Blood Count 4.14L, Hemoglobin 13.3, Hematocrit 41, Mean Corpuscular Volume 99, Mean Corpuscular Hemoglobin 32, Mean Corpuscular Hemoglobin Concent 33, Red Cell Distribution Width 14.6H, Platelet Count 243, Mean Platelet Volume 9.8, Neutrophils (%) (Auto) 68, Lymphocytes (%) (Auto) 18, Monocytes (%) (Auto) 11, Eosinophils (%) (Auto) 3, Basophils (%) (Auto) 1, Neutrophils # (Auto) 6.2, Lymphocytes # (Auto) 1.6, Monocytes # (Auto) 1.0, Eosinophils # (Auto) 0.3, Basophils # (Auto) 0.1, Sodium Level 142, Potassium Level 2.8L, Chloride Level 109H, Carbon Dioxide Level 21, Anion Gap 12, Blood Urea Nitrogen 18, Creatinine 0.65, Estimat Glomerular Filtration Rate > 60, BUN/ Creatinine Ratio 28, Glucose Level 90, Calcium Level 8.8, Total Bilirubin 0.9, Aspartate Amino Transf (AST/SGOT) 35H, Alanine Aminotransferase (ALT/SGPT) 28, Alkaline Phosphatase 92, Total Protein 6.4, Albumin 3.5 A/P: Assessment: Acute ischemic L-sided CVA, 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 The only history provided to me is that of traumatic head bleed. This presentation is with ischemic (thromboembolic ) CVA, as confirmed on MRI, that is likely related to patient's chronic atrial fib. There is no intracranial bleed on MRI of this admission. Therefore, it appears appropriate to initiate oral anticoag for further stroke prevention. Continue Eliquis Her heart rate currently appears controlled. Consider BB or CCB for vent rate control if that becomes an issue Dr. Moore discussed all of the above issues with her family, including the potential risks of OAC that include harmful bleeding. They understand and concur with this treatment plan Management of stroke all noncardiac issues is with Dr Otto Continue current regimen Replace potassium Physician Assessment Physician Assessment Lungs: good air entry Cor: irreg A&R * As documented in our note above LUIS ALBERTO LOMELI [employer] Feb 16, 2017 10:18 PATRICK MOORE MD FACP FAC CCDS Feb 16, 2017 13:09
--- NOTE | 2017-02-16 10:30 | HISTORY AND PHYSICAL ---
DATE OF ADMISSION: 02/15/2017 CHIEF COMPLAINT: Difficulty with walking, impaired speech. HISTORY OF PRESENT ILLNESS: The patient is an 81-year-old female who was admitted to [facility] on 02/12 to the hospital service of Dr. Otto as she developed right-sided facial droop, hemiparesis and aphasia. She was not felt to be a candidate for TPA. An MRI of the brain did show findings consistent with evolving ischemic infarct involving the left temporal, parietal and occipital lobes as well as putamen in the left basal nuclei. No intracranial hemorrhage was demonstrated. The patient was followed by hospitalist service and cardiology and medications were adjusted. Therapies were begun and she was felt to be appropriate for Inpatient Rehabilitation. PAST MEDICAL HISTORY: 1. History of hemorrhagic stroke 2014. 2. Chronic atrial fibrillation. 3. RA. 4. Hypertension 5. GERD. 6. Hypothyroidism on replacement. PAST SURGICAL HISTORY: Noncontributory. ALLERGIES: 1. IODINE. 2. LIDOCAINE FAMILY HISTORY: Noncontributory. SOCIAL HISTORY: She has decreased vision in the right eye from glaucoma, rheumatoid arthritis involving several joints. She had been able to manage her basic self-care, needs with only a little help due to RA. 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 [facility] [place] [place]. REVIEW OF SYSTEMS: Ten-point review of systems is significant for aphasia, right-sided weakness, joint pain, blindness, right eye. MEDICATIONS: 1. Diamox 500 mg p.o. daily. 2. Atenolol 12.5 mg p.o. daily. 3. Cyclogyl eye drops, one drop daily 1%. 4. Digoxin 0.125 mg p.o. daily. 5. Zestril 10 mg p.o. daily. 6. Methotrexate 25 mg p.o. daily. 7. Synthroid 75 mcg p.o. daily. 8. Folic acid 1 mg p.o. b.i.d. 9. Xalatan eye drops 0.005%, one drop right eye at bedtime. 10. Simvastatin 40 mg p.o. at bedtime. 11. Timoptic 0.5%, one drop both eyes b.i.d. 12. Protonix 20 mg p.o. b.i.d. 13. Gabapentin 300 mg p.o. b.i.d. 14. Eliquis 5 mg p.o. q.12 hours. 15. Tramadol 50 mg p.o. q.4 hours p.r.n. moderate pain. 16. Alphagan 0.2%, one drop both eyes t.i.d. 17. Pred Forte 1%, one drop q.i.d. right eye. PHYSICAL EXAMINATION: Significant for a pleasant female, appearing her stated age, appears alert, but quite aphasic although able to follow simple commands, somewhat consistently in no acute distress. VITAL SIGNS: Temperature is 100 degrees, pulse 64, respirations 16, blood pressure 131/75, O2 sat 90% on room air. HEENT: Vision, is diminished in the right eye. Vision in the left eye appears grossly intact. Hearing, grossly intact. She has right-sided facial droop. Swallow function and functional conversation as per speech and she has expressive aphasia. NECK: Supple without mass. HEART: Regular rhythm. LUNGS: Clear. ABDOMEN: Soft, nontender. Bowel sounds present. EXTREMITIES: No lower edema. No calf tenderness. MUSCULOSKELETAL: She has functional passive range of motion of all 4 extremities. NEUROLOGICAL: Coordination within functional limits left upper extremity, impaired right upper extremity, difficult to assess sensation. Right upper extremity strength approximately 4/5, left upper extremity 2+/3-/5 right shoulder. The rest of the upper extremity grossly 3/5 on the right. Strength left lower extremity 4/5, right lower extremity 3/5, difficult to fully assess as the patient has some difficulty following cues for formal testing. Slight increased tone is noted in the right lower limb. IMPRESSION: 1. Left MCA distribution ischemic infarct involve the left temporal, parietal, occipital lobes, as well as the putamen with resulting right hemiparesis and aphasia with a decline of functional dependence. 2. Rheumatoid arthritis on methotrexate. 3. Atrial fibrillation, controlled with medication. 4. GERD, on medication. 5. Hypothyroidism on replacement. 6. Hypertension, controlled with medication. 7. Glaucoma with decreased vision right eye on eyedrops. PLAN: The patient will comprehensive program of inpatient stroke rehabilitation with goal of maximizing level of functional dependence prior to discharge home with spouse and home health care. The patient will have PT/OT 90 minutes per day, 5 days a week for gait conditioning, strengthening, balance, ADLs, any patient/family/caregiver training necessary, any adaptive equipment and training necessary, modalities as needed for pain. Currently, the patient is mod assist for transfers, as well as grooming, and eating. She fatigues easily. She is mod assist for ambulation short distances with a front wheel walker, and gait belt. The patient will have speech therapy 30 to 45 minutes per day, 3 to 5 times a week for her aphasia with goal of maximizing level of communication and assuring safe swallowing with compensation. Rehabilitation nursing assist with bowel, bladder, skin care, medication administration, pain management. director of women's services to assist with discharge planning, community reentry and follow-up with Hospital service and cardiology as per their schedules. ESTIMATED LENGTH OF STAY: Three weeks. PROGNOSIS: Rehab prognosis appears good for goal of enhancing level of functional dependence prior to discharge home with spouse and home health care. DIET: Mechanically altered. CODE STATUS: Full code. SCDs for DVT prophylaxis. The patient had an IV at 50 mL per hour when transferred to rehab unit. IV site infiltrated, we will discontinue for now and check labs in a.m. POST ADMISSION PHYSICIAN ASSESSMENT: The preadmission screen agrees with the post admission assessment that the patient is a good candidate for inpatient rehabilitation. She appears to be well motivated to participate in 3 hours therapy a day. She should be able tolerate 3 hours of therapy a day from a medical standpoint. She may need 15 hours in 7 days schedule in order to build up her endurance and stamina through full rehab program. We will follow-up with staff in a.m. She should benefit from the 3 hours of therapy a day. She has a reasonable discharge plan, reasonable discharge rehabilitation goals and a supportive spouse. She has various comorbidities that need to be closely monitored with medications and treatments adjusted on a daily basis as needed. These include her low-grade fever of 100 degrees this evening for which we will check labs in a.m. may need to check chest x-ray as well and UA. Also, her hypertension, coronary artery disease and her rheumatoid arthritis and pain management. Barriers to discharge for this patient who had been fairly modified independent to supervision for much for ADLs and mobility skills prior to this are for her to return to prior level of function so as to lessen the burden of the caregivers; home health care and her spouse. Risks for this patient include: 1. Recurrent stroke. 2. DVT. 3. Pulmonary embolism. 4. Urinary retention. 5. UTI. 6. Respiratory infection. 7. Aspiration. 8. Poorly controlled pain. 9. Poorly controlled hypertension. 10. Worsening fever. Job ID: [id number] Dictated Date: 02/15/2017 20:46:10 Prosthetic Assistant Date: 02/16/2017 10:01:34/lenny AVENDANO
--- NOTE | 2017-02-16 10:35 | ST Cognitive Linguistic Eval ---
Speech Evaluation-General Medical Diagnosis CVA Onset Date: Feb 12, 2017 Therapy Diagnosis Therapy Diagnosis: Severe Global Aphasia Precautions Precautions: Aspiration Precautions/Isolations: Aspiration, Fall Prevention, Standard Precautions Referral Referring Physician: Dr. David Lerma Reason for Referral: Evaluation/Treatment Cognitive, Speech, and Language Evaluation Medical History Pertinent Medical History: Atrial Fib, GERD, HTN, Hypothroidism, Rheumatoid Arthritis Reviewed History: Yes Social History Current Living Status: Spouse Speech PLF-Current Status Prior Level of Function Due to the patient's severe expressive and receptive aphasia (global), prior level of function is unknown to the clinician. Subjective The patient was recently admitted to [facility] following a left-sided CVA resulting in right sided weakness and severe receptive and expressive aphasia. The patient made limited eye contact upon entrance to room and continued to make limited eye contact throughout the evaluation. Language Eval: Auditory Comprehends Simple Yes/No Ques: Severe (The patient was unable to provide accurate head nod to yes/no questions, eye gaze to accurate yes/no responses written, or point to the words yes/no with simple questions.) Indent/Objects Multiple [place]: Severe (The patient was unable to identify an object in a field of two with name or function provided by clinician.) Ident/Pics in Multiple [place]: Severe (The patient was unable to identify a picture in a field of two with name or function provided by clinician.) Follows 1-Step Commands: Severe (The patient was unable to follow simple, one- step commands with direct modeling.) Follows Complex Directions: Severe Follows General Conversations: Severe Language Eval: Verbal Language Completes Spontaneous Greeting: Severe Produces Auto, Serial Info: Severe (Patient does not respond to personal information in any format provided (field of two, yes/no, identification)) Imitates Simple Words/Phrases: Severe (Patient is unable to imitate phonemes.) Word Finding: Severe (Patient made no attempts at verbalization.) Requests Basic Needs: Severe States Basic Personal Info: Severe Expresses Complex Ideas: Severe Language Evaluation: Reading Comprehends Single Nouns: Severe (Patient was unable to locate yes/no with eye gaze or identification.) Cognitive Patient Orientation The patient does not provide responses to orientation questions in yes/no format , field of two, or written. Objective Cognitive Domain Due to the patient's severe expressive and receptive aphasia, cognitive testing is unable to be completed at this time. Objective Oral Motor/Speech Production The patient presents with a right labial droop. The patient was unable to follow verbal prompts or direct modeling for lingual protrusion. Impression The patient demonstrated severe expressive and receptive aphasia. Communication/Social Cognition Comprehension: 1 Expression: 1 Social Interaction: 1 Problem Solvin Memory: 1 Speech Patient Assess Expression of Ideas/Wants: Rarely/Never (1) Understanding [place] Content: Rarely/Never Understand (1) Brief Interview-Mental Status: No(pt is rarely/never understood) Memory/Recall Ability: None of the above were recalled Speech Short Term Goals Short Term Goals Short Term Goals 1. The patient will demonstrate swallowing strategies with 80% accuracy and mild clinician verbal cueing. 2. The patient will demonstrate dysphagia strengthening exercises with 80% accuracy and mild clinician verbal cueing. 3. The patient will repeat single, bilabial phonemes with 80% accuracy and maximum clinician verbal cueing. 4. The patient will identify common objects in a field of two. 5. The patient will display 80% accuracy with simple yes/no questions through pointing, head nods, or verbalizations. Time Frame-STG: Four Weeks Speech Senior Living Goals Senior Living Goals 1. The patient will tolerate the least restrictive diet without signs/symptoms of aspiration or laryngeal penetration. 2. The patient will demonstrate improved expressive and receptive language for increased function and safety with ADL's in the least restrictive setting. Time Frame: Four Weeks Comprehension: 3 Expression: 2 Social Interaction: 3 Problem Solvin Memory: 2 Speech-Plan Treatment Plan Speech Therapy Treatment Plan: Continue Plan of Care Continue skilled speech pathology to target expressive and receptive communication. Treatment Duration: March 15, 2017 # of days/week Five. Visits Per Week: Five Minutes/Day (M-F): 30 Rehab Potential: Guarded Safety Risks/Education Teaching Recipient: Patient Teaching Methods: Discussion Response to Teaching: Unable to Comprehend Education Topics Provided: Results, Recommendations Time Speech Therapy Time In: 09:45 Speech Therapy Time Out: 10:15 Total Billed Time: 30 Billed Treatment Time 1JEREMIE ELIZABETH Feb 16, 2017 10:35
--- NOTE | 2017-02-16 11:33 | Occupational Ther Daily Note ---
OT Current Status-Daily Note Subjective Pt seen in room, up in recliner, agreeable to OT. Pt verbalized "No" when asked if she wanted more eggs. No pain mentioned or observed. Appearance Alert, but flat affect. Cooperative Mental Status/Objective Functional [place] Measure 0=Not Assessed/NA 4=Minimal Assistance 1=Total Assistance 5=Supervision or Setup 2=Maximal Assistance 6=Modified [place] 3=Moderate Assistance 7=Complete [place] Attachments: Saline Lock ADL-Treatment All ADLs took longer than usual and required skilled verbal and visual cues. Pt had some difficulty maintaining upright sitting and tended to fall back towards her right side. She could self correct and was observed to prop herself up on the arm rest of the recliner with her R arm. Functional [place] Measure 0=Not Assessed/NA 4=Minimal Assistance 1=Total Assistance 5=Supervision or Setup 2=Maximal Assistance 6=Modified [place] 3=Moderate Assistance 7=Complete IndependenceIRFPAI Quality Coding Scale 6 Independent with activity with or without an assistive device 5 Patient requires set up or clean up by helper. Patient completes activity by themselves 4 Supervision or touching assist (CGA). [place] provide cues , steadying assist 3 The helper provides less than half the effort to complete the activity 2 The helper provides more than half the effort to complete the activity 1 Dependent. The helper does all the effort to complete an activity 7 Patient refused to complete or attempt activity 9 The patient did not perform the activity before the current illness or injury 88 Not attempted due to Medical conditions or safety concerns Eating (FIM): 4 (Pt was able to hold fork in right hand and bring food to mouth. She initially needed help stabbing sausage with fork but, after several bites, was able to stab sausage herself 75% of the time. Pt used lower table to get food in better position for self feeding. ) Bathing (FIM): 4 (Pt washed arms, chest, abdomen, thighs and parts of lower legs - 60% sponge bath. Picked feet up to be washed but unable to wash tem and pick them up at the same time. ) Shower/Bathe Self (QC): 3 Upper Body (FIM): 4 (Pt put pullover shirt on with just a little help to pull it down in the back. Oriented shirt without help) Upper Body Dressing (QC): 3 Lower Body Dressing (FIM): 3 (Pt picked feet up to put them in pants but was unable to bend forward, manage clothing and orange picker machine operator feet at the same time. Helped to take slipper socks off but unable to get them all the way off or get them on. Helped pull pants up to thighs before standing. Min assist sit to stand and was able to maintain standing with CGA, FWW. help needed to get pants up over hips. ) Lower Body Dressing (QC): 3 On/Off Footwear (QC): 2 (Pt did 25%) Toileting (FIM): 1 (Pt was incontinent of stool and urine. Required two people to stand her and clean her bottom and jose rafael areas, FWW. Pt attempted to help pull pants up over hips but was unable to take depends off. ) Transfers (B, C, W/C) (FIM): 4 (Min assist sit to stand, physical and verbal cues for hand placement, FWW) Pt was left up in recliner, feeding herself with nursing assistance. Education OT Patient Education: Modified ADL techniques, Progress toward Goal/Update tx plan, Purpose of tx/functional activities Teaching Recipient: Patient Teaching Methods: Demonstration, Discussion Response to Teaching: Reinforcement Needed OT Short Term Goals Short Term Goals Time Frame: Mar 01, 2017 Eating(FIM): 5 Grooming(FIM): 5 Bathing(FIM): 4 Upper Body Dressing(FIM): 4 Lower Body Dressing(FIM): 4 Toileting(FIM): 4 Transfers (B,C,W/C) (FIM): 4 Toilet/Commode Transfer(FIM): 4 Shower Transfer(FIM): 4 Additional Short Term Goals: 2-Verbalize Understanding, 3-ImproveStrength/[place] 1=Demonstrate adherence to instructed precautions during ADL tasks. 2=Patient will verbalize/demonstrate understanding of assistive devices/ modifications for ADL. 3=Patient will improve strength/tolerance for activity to enable patient to perform ADL's. OT Shelter Goals Shelter Goals Time Frame: March 15, 2017 Eating (FIM): 6 Eating (QC): 6 Groomin Oral Hygiene (QC): 6 Bathing(FIM): 5 Shower/Bathe Self (QC): 5 Upper Body Dressing(FIM): 5 Upper Body Dressing (QC): 5 Lower Body Dressing(FIM): 5 Lower Body Dressing (QC): 5 On/Off Footwear (QC): 5 Toileting(FIM): 6 Toileting Hygiene (QC): 6 Toilet/Commode Transfer(FIM): 6 Toilet/Commode Transfer (QC): 6 Shower Transfer(FIM): 6 Comprehension(FIM): 3 Expression (FIM): 2 Social Interaction(FIM): 3 Problem Solving(FIM): 2 Memory(FIM): 2 Additional Goals: 2-Verbalize Understanding, 3-ImproveStrength/[place] 1=Demonstrate adherence to instructed precautions during ADL tasks. 2=Patient will verbalize/demonstrate understanding of assistive devices/ modifications for ADL. 3=Patient will improve strength/tolerance for activity to enable patient to perform ADL's. OT Education/Plan Problem List/Assessment Pt would benefit from skilled OT to increase her independence in basic self care to allow her to return home safely with family and to decrease caregiver burden Discharge Recommendations Plan/Recommendations: Continue POC Treatment Plan/Plan of Care Patient would benefit from OT for education, treatment and training to promote independence in ADL's, mobility, safety and/or upper extremity function for ADL' s. Plan of Care: ADL Retraining, Functional Mobility, Group Exercise/Act as Ind ( education, exercise, functional acitivities, communication, memory, problem solving), UE Funct Exercise/Act, UE Neuromus Re-Ed/Coord, Visual/Perceptual Retrain Treatment Duration: March 15, 2017 Visits Per Week: 10-11 Minutes/Day (M-F): 75-90 Minutes/Day (Sat/Anders): PRN Agreement: Yes Rehab Potential: Guarded Time/GCodes Start Time: 08:30 Stop Time: 09:20 Total Time Billed (hr/min): 50 Billed Treatment Time visit, 50 minutes ADL STEVEN JONES OT Feb 16, 2017 11:33
--- NOTE | 2017-02-16 12:05 | Physical Therapy Daily Note ---
PT Daily Note-Current Subjective Patient is up in recliner and agrees to PT. Pain Numeric Pain Scale: 0-No Pain Location: No Pain Reported Mental Status Patient Orientation: Non-Verbal/Aphasic Transfers Functional [place] Measure 0=Not Assessed/NA 4=Minimal Assistance 1=Total Assistance 5=Supervision or Setup 2=Maximal Assistance 6=Modified [place] 3=Moderate Assistance 7=Complete IndependenceIRFPAI Quality Coding Scale 6 Independent with activity with or without an assistive device 5 Patient requires set up or clean up by helper. Patient completes activity by themselves 4 Supervision or touching assist (CGA). [place] provide cues , steadying assist 3 The helper provides less than half the effort to complete the activity 2 The helper provides more than half the effort to complete the activity 1 Dependent. The helper does all the effort to complete an activity 7 Patient refused to complete or attempt activity 9 The patient did not perform the activity before the current illness or injury 88 Not attempted due to Medical conditions or safety concerns Transfers (B, C, W/C) (FIM): 3 Scootin Sit to/from Stand: 3 Sit to Stand (QC): 3 Chair/Upo-io-Naqoq Xfer(QC): 3 Patient performed sit to business banking manager parallel bars x 6 sets with bilateral UE's pulling to upright and PT minimal assist to mod assist as she fatigues. Gait Training Does the Patient Walk?: Yes Gait (FIM): 1 Distance (FIM): 1=up to 49 ft Distance: 25' x 3 Walk 10 feet (QC): 3 Gait Level of Assist: 2 Gait Persons Needed: 1 Gait Assistive Device: FWW max assist to advance right LE due to minimal weight shifting to left to advance right LE. Patient presents with hip flexed posture. Wheelchair Training Does the Pt Use a Wheelchair?: Yes Wheelchair (FIM): 1 Wheelchair Distance: 1=up to 49 ft Distance: 30' x 3 Wheelchair Level of Assist: 2 Type of Wheelchair: Manual patient propelled w/c with use of left UE and attempting to "walk" bilateral LE' s Exercises Seated Therapy Exercises: Ankle pumps, Long arc quads, Hip flexion Seated Reps: 10 (4 sets bilaterally with AAROM right LE) Assessment Patient tolerated treatment well and returned to room to eat lunch. OT in to assist patient with this task. Family present at end of treatment. PT Short Term Goals Short Term Goals Time Frame: Mar 01, 2017 Transfers (B,C,W/C) (FIM): 4 Gait (FIM): 4 Distance (FIM): 3=150 ft Gait Assistive Device: FWW Stairs (FIM): 2 # of Steps: 4 PT Petrol Tanker Driver Goals Assisted Goals PT Petrol Tanker Driver Goals Time Frame: March 15, 2017 Transfers (B,C,W/C) (FIM): 6 Sit to Lying (QC): 6 Lying-Sitting on Side/Bed(QC): 6 Sit to Stand (QC): 6 Rollin Roll Left to Right (QC): 6 Chair/Axs-mo-Yirvj Xfer(QC): 6 Car Transfer (QC): 5 Does the Patient Walk: Yes Gait (FIM): 6 Gait distance (FIM): 3=150 ft Walk 10 feet (QC): 6 Walk 10ft-Uneven Surface(QC): 6 Walk 50ft with 2 Turns (QC): 6 Walk 150 ft (QC): 6 Gait Level of Assist: 6 Gait Assistive Device: FWW Does the Pt use WC or Scooter?: No Stairs (FIM): 5 # of Steps: 8 1 Step (curb) (QC): 6 4 Steps (QC): 5 12 Steps (QC): 9 Stairs Level Of Assist: 6 Picking up an Object (QC): 4 PT Plan Treatment/Plan Treatment Plan: Continue Plan of Care Treatment Plan: Bed Mobility, Education, Functional Activity [place], Functional Strength, Group Therapy, Gait, Safety, Therapeutic Exercise, Transfers Treatment Duration: March 15, 2017 Visits Per Week: 10-15 Minutes/Day (M-F): 60-90 Minutes/Day (Sat/Anders): prn Safety Risks/Education Patient Education: Safety Issues Teaching Recipient: Patient Teaching Methods: Demonstration, Discussion Response to Teaching: Reinforcement Needed Time/GCodes Time In: 1100 Time Out: 1200 Total Billed Treatment Time: 60 Total Billed Treatment 1 visit EX 15 min FA 15 min GT 15 min WCH 15 min CHRISTIANNE HOWARD PT Feb 16, 2017 12:05
--- NOTE | 2017-02-16 12:31 | Progress Note-Hospitalist ---
Standard Progress Note Progress Notes/Assess & Plan Date Seen 02/16/17 Assess & Plan/Chief Complaint The patient was sitting in a chair at bedside. She was eating with the supervision of an aide. She was observed to use both right and left hand in delivering food to the mouth. The staff observes that she has a tendency to pocket food on her right side which then may ultimately provoke a cough. She has been standing with minimum assist and walking several steps with the walker. She does not attempt to speak. Physical exam: Lungs are clear to auscultation. CV is irregular. The right and left rn primary care are nearly equal. Finger to thumb alternating movements is better on the left. Impression: aphasia. Right hemiparesis. Atrial fibrillation, chronic. Plan: Continue daily therapy. Results to this point appeared good. Labs Laboratory Tests 02/16/17 06:10 IVAN HARMON MD Feb 16, 2017 12:31
--- NOTE | 2017-02-16 13:04 | Occupational Ther Daily Note ---
OT Current Status-Daily Note Subjective Pt sitting up in recliner with lunch in front of her. Took over care from PT. Mental Status/Objective Patient Orientation: Person, Non-Verbal/Aphasic Functional [place] Measure 0=Not Assessed/NA 4=Minimal Assistance 1=Total Assistance 5=Supervision or Setup 2=Maximal Assistance 6=Modified [place] 3=Moderate Assistance 7=Complete [place] ADL-Treatment Initially pt was fed initially. Pt required physical cues to initiate scoop or spear food. Pt using L UE to feed self. Pt required physical cues to stop putting spoon in mouth and scoop another bite. Pt reached for drink, grasped and brought to mouth by self. Pt pocketing food in R cheek and required verbal cue to swallow. Pt attempted to bring spoon of pudding up to mouth with R hand , unable to complete. Used R hand to hold pudding container then was able to scoop and eat with L hand. After therapy, pt sitting in recliner with present in room. Call light/phone in reach. All needs met in room. Functional [place] Measure 0=Not Assessed/NA 4=Minimal Assistance 1=Total Assistance 5=Supervision or Setup 2=Maximal Assistance 6=Modified [place] 3=Moderate Assistance 7=Complete IndependenceIRFPAI Quality Coding Scale 6 Independent with activity with or without an assistive device 5 Patient requires set up or clean up by helper. Patient completes activity by themselves 4 Supervision or touching assist (CGA). [place] provide cues , steadying assist 3 The helper provides less than half the effort to complete the activity 2 The helper provides more than half the effort to complete the activity 1 Dependent. The helper does all the effort to complete an activity 7 Patient refused to complete or attempt activity 9 The patient did not perform the activity before the current illness or injury 88 Not attempted due to Medical conditions or safety concerns Eating (FIM): 2 OT Short Term Goals Short Term Goals Time Frame: Mar 01, 2017 Eating(FIM): 5 Grooming(FIM): 5 Bathing(FIM): 4 Upper Body Dressing(FIM): 4 Lower Body Dressing(FIM): 4 Toileting(FIM): 4 Transfers (B,C,W/C) (FIM): 4 Toilet/Commode Transfer(FIM): 4 Shower Transfer(FIM): 4 Additional Short Term Goals: 2-Verbalize Understanding, 3-ImproveStrength/[place] 1=Demonstrate adherence to instructed precautions during ADL tasks. 2=Patient will verbalize/demonstrate understanding of assistive devices/ modifications for ADL. 3=Patient will improve strength/tolerance for activity to enable patient to perform ADL's. OT Tmd Teacher Goals Tmd Teacher Goals Time Frame: March 15, 2017 Eating (FIM): 6 Eating (QC): 6 Groomin Oral Hygiene (QC): 6 Bathing(FIM): 5 Shower/Bathe Self (QC): 5 Upper Body Dressing(FIM): 5 Upper Body Dressing (QC): 5 Lower Body Dressing(FIM): 5 Lower Body Dressing (QC): 5 On/Off Footwear (QC): 5 Toileting(FIM): 6 Toileting Hygiene (QC): 6 Toilet/Commode Transfer(FIM): 6 Toilet/Commode Transfer (QC): 6 Shower Transfer(FIM): 6 Comprehension(FIM): 3 Expression (FIM): 2 Social Interaction(FIM): 3 Problem Solving(FIM): 2 Memory(FIM): 2 Additional Goals: 2-Verbalize Understanding, 3-ImproveStrength/[place] 1=Demonstrate adherence to instructed precautions during ADL tasks. 2=Patient will verbalize/demonstrate understanding of assistive devices/ modifications for ADL. 3=Patient will improve strength/tolerance for activity to enable patient to perform ADL's. OT Education/Plan Problem List/Assessment Pt would benefit from skilled OT to increase her independence in basic self care to allow her to return home safely with family and to decrease caregiver burden Discharge Recommendations Plan/Recommendations: Continue POC Treatment Plan/Plan of Care Patient would benefit from OT for education, treatment and training to promote independence in ADL's, mobility, safety and/or upper extremity function for ADL' s. Plan of Care: ADL Retraining, Functional Mobility, Group Exercise/Act as Ind ( education, exercise, functional acitivities, communication, memory, problem solving), UE Funct Exercise/Act, UE Neuromus Re-Ed/Coord, Visual/Perceptual Retrain Treatment Duration: March 15, 2017 Visits Per Week: 10-11 Minutes/Day (M-F): 75-90 Minutes/Day (Sat/Anders): PRN Agreement: Yes Rehab Potential: Guarded Time/GCodes Start Time: 12:00 Stop Time: 12:25 Total Time Billed (hr/min): 25 Billed Treatment Time 1 visit-FA 2 (25 min) HUSSEIN PERDOMO Feb 16, 2017 13:04
--- NOTE | 2017-02-16 13:26 | Physical Therapy Daily Note ---
PT Daily Note-Current Subjective Patient nods her head and agrees to PT. Pain Numeric Pain Scale: 0-No Pain Location: No Pain Reported Mental Status Patient Orientation: Non-Verbal/Aphasic Transfers Functional [place] Measure 0=Not Assessed/NA 4=Minimal Assistance 1=Total Assistance 5=Supervision or Setup 2=Maximal Assistance 6=Modified [place] 3=Moderate Assistance 7=Complete IndependenceIRFPAI Quality Coding Scale 6 Independent with activity with or without an assistive device 5 Patient requires set up or clean up by helper. Patient completes activity by themselves 4 Supervision or touching assist (CGA). [place] provide cues , steadying assist 3 The helper provides less than half the effort to complete the activity 2 The helper provides more than half the effort to complete the activity 1 Dependent. The helper does all the effort to complete an activity 7 Patient refused to complete or attempt activity 9 The patient did not perform the activity before the current illness or injury 88 Not attempted due to Medical conditions or safety concerns Transfers (B, C, W/C) (FIM): 3 Scootin Rollin Supine to/from Sit: 3 Sit to/from Stand: 3 Sit to Lying (QC): 3 Sit to Stand (QC): 3 Chair/Ggt-ah-Cvwme Xfer(QC): 3 Bed to/from Chair: 3 mod assist x 1 with SBA x 1 for safety Gait Training Does the Patient Walk?: Yes Gait (FIM): 1 Distance (FIM): 1=up to 49 ft Distance: 20' Walk 10 feet (QC): 3 Gait Level of Assist: 3 Gait Persons Needed: 2 Gait Assistive Device: FWW SBA x 1 with w/c; mod assist with assist to advance right LE secondary to weakness and neglect Treatments Patient required dependent assist to change depends secondary to incontinent urine. Patient did assist with pulling pants up in stand. Assessment Patient is very fatigued this p.m. and returned to bed with 4 rails up and call light in hand. PT to increase activity as tolerated by patient. PT Short Term Goals Short Term Goals Time Frame: Mar 01, 2017 Transfers (B,C,W/C) (FIM): 4 Gait (FIM): 4 Distance (FIM): 3=150 ft Gait Assistive Device: FWW Wheelchair Distance: 30' x 3 Stairs (FIM): 2 # of Steps: 4 PT Skilled Nursing Goals Orthodontist Goals PT Skilled Nursing Goals Time Frame: March 15, 2017 Transfers (B,C,W/C) (FIM): 6 Sit to Lying (QC): 6 Lying-Sitting on Side/Bed(QC): 6 Sit to Stand (QC): 6 Rollin Roll Left to Right (QC): 6 Chair/Jmn-av-Tiqmt Xfer(QC): 6 Car Transfer (QC): 5 Does the Patient Walk: Yes Gait (FIM): 6 Gait distance (FIM): 3=150 ft Walk 10 feet (QC): 6 Walk 10ft-Uneven Surface(QC): 6 Walk 50ft with 2 Turns (QC): 6 Walk 150 ft (QC): 6 Gait Level of Assist: 6 Gait Assistive Device: FWW Does the Pt use WC or Scooter?: No Stairs (FIM): 5 # of Steps: 8 1 Step (curb) (QC): 6 4 Steps (QC): 5 12 Steps (QC): 9 Stairs Level Of Assist: 6 Picking up an Object (QC): 4 PT Plan Treatment/Plan Treatment Plan: Continue Plan of Care Treatment Plan: Bed Mobility, Education, Functional Activity [place], Functional Strength, Group Therapy, Gait, Safety, Therapeutic Exercise, Transfers Treatment Duration: March 15, 2017 Visits Per Week: 10-15 Minutes/Day (M-F): 60-90 Minutes/Day (Sat/Anders): prn Time/GCodes Time In: 1250 Time Out: 1320 Total Billed Treatment Time: 30 Total Billed Treatment 1 visit GT 10 min FA 20 min CHRISTIANNE HOWARD PT Feb 16, 2017 13:26
--- NOTE | 2017-02-16 13:58 | PM & R (SOAP) Progress Note ---
Subjective Subjective/Events-last exam Patient was seen in her room this noonhour Discussed case with RN Patient with loose stools No further elevated Temp Labs noted Appreciate Cardiology note and orders re Hypoglycemia Patient mod assist for transfers.Met with patients spouse who is in a W/C and has suplplemental 02 Spouse indicates that his son drove him here today from [place] Objective Exam Last Set of Vital Signs Vital Signs Date Time Temp Pulse Resp B/P (MAP) Pulse Ox O2 Delivery O2 Flow Rate FiO2 02/16/17 05:10 98.6 72 16 114/75 96 Room Air Capillary Refill : I&O Bad tableGeneral: Alert, Cooperative, No Acute Distress HEENT: Atraumatic, PERRLA, EOMI, Mucous Memb Moist/[place], Other (aphasic) Neck: Supple, No JVD Lungs: Clear to Auscultation Heart: Regular Rate Abdomen: Normal Bowel Sounds, Soft, No Tenderness Extremities: No Edema Neuro: Other (rt HP and aphasia) Results Lab Laboratory Tests 02/16/17 06:10: White Blood Count 9.1, Red Blood Count 4.14L, Hemoglobin 13.3, Hematocrit 41, Mean Corpuscular Volume 99, Mean Corpuscular Hemoglobin 32, Mean Corpuscular Hemoglobin Concent 33, Red Cell Distribution Width 14.6H, Platelet Count 243, Mean Platelet Volume 9.8, Neutrophils (%) (Auto) 68, Lymphocytes (%) (Auto) 18, Monocytes (%) (Auto) 11, Eosinophils (%) (Auto) 3, Basophils (%) (Auto) 1, Neutrophils # (Auto) 6.2, Lymphocytes # (Auto) 1.6, Monocytes # (Auto) 1.0, Eosinophils # (Auto) 0.3, Basophils # (Auto) 0.1, Sodium Level 142, Potassium Level 2.8L, Chloride Level 109H, Carbon Dioxide Level 21, Anion Gap 12, Blood Urea Nitrogen 18, Creatinine 0.65, Estimat Glomerular Filtration Rate > 60, BUN/ Creatinine Ratio 28, Glucose Level 90, Calcium Level 8.8, Total Bilirubin 0.9, Aspartate Amino Transf (AST/SGOT) 35H, Alanine Aminotransferase (ALT/SGPT) 28, Alkaline Phosphatase 92, Total Protein 6.4, Albumin 3.5 Assessment/Plan Assessment 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
[2017-02-16 17:59] VITALS: BP 113/73
[2017-02-16] MEDS: SIMvastatin 40 MG (ZOCOR) TAB PO SCH (20:26)
[2017-02-16] MEDS: LATANOPROST 0.005% (XALATAN) OPHTH SOLN 2.5 ML OD SCH (20:26)
[2017-02-17 05:13] VITALS: BP 122/80
[2017-02-17] MEDS: LEVOTHYROXINE 75 MCG (LEVOTHROID) TABLET PO SCH (06:09)
[2017-02-17 06:11] LABS: ANION GAP 10 MMOL/L (5-14); BLOOD UREA NITROGEN 25 MG/DL (7-18); BUN/CREATININE RATIO 38; CALCIUM 8.8 MG/DL (8.5-10.1); CARBON DIOXIDE 20 MMOL/L (21-32); CHLORIDE 114 MMOL/L (98-107); CREATININE SERUM 0.65 MG/DL (0.60-1.30); GFR ESTIMATED > 60; GLUCOSE 90 MG/DL (70-105); POTASSIUM 3.7 MMOL/L (3.6-5.0); SODIUM 144 MMOL/L (135-145)
[2017-02-17] MEDS: ATENOLOL 25 MG (TENORMIN) TAB PO SCH (08:07)
[2017-02-17] MEDS: lisINopril 10 MG (PRINIVIL) TAB PO SCH (08:07)
[2017-02-17] MEDS: GABAPENTIN 300 MG (NEURONTIN) CAP PO SCH ×2 (08:07→19:59)
[2017-02-17] MEDS: DIGOXIN 0.125 MG (LANOXIN) TAB PO SCH (08:07)
[2017-02-17] MEDS: FOLIC ACID 1 MG TAB PO SCH ×2 (08:07→19:59)
[2017-02-17] MEDS: PANTOPRAZOLE 20 MG TABLET (PROTONIX) PO SCH ×2 (08:07→19:59)
[2017-02-17] MEDS: APIXABAN 5 MG (ELIQUIS) TABLET PO SCH ×2 (08:07→19:59)
[2017-02-17] MEDS: TIMOLOL MALEATE 0.5% 5 ML (TIMOPTIC) BTL OU SCH ×2 (08:09→19:59)
[2017-02-17] MEDS: BRIMONIDINE 0.2% (ALPHAGAN) OPHTH SOLN 5 ML BTL OU SCH ×3 (08:10→19:59)
[2017-02-17] MEDS: prednisoLONE 1% OPTH (PRED FORTE) 5 ML BTL OD SCH ×4 (08:11→19:58)
[2017-02-17] MEDS: CYCLOPENTOLATE 1% (CYCLOGYL) 2 ML DROPS OD SCH (08:11)
--- NOTE | 2017-02-17 08:38 | PM & R (SOAP) Progress Note ---
Subjective Subjective/Events-last exam Patient was seen in her room this AM Patient mod assist for transfers [place] labs noted K replaced Objective Exam Last Set of Vital Signs Vital Signs Date Time Temp Pulse Resp B/P (MAP) Pulse Ox O2 Delivery O2 Flow Rate FiO2 02/17/17 05:13 97.6 87 16 122/80 96 Room Air Capillary Refill : I&O Intake and Output 02/17/17 00:00 Intake Total 950 ml Balance 950 ml Intake Oral 750 ml IV Total 200 ml # Urine Diapers 8 # Bowel Movements 6 General: Alert, Cooperative, No Acute Distress HEENT: Atraumatic, PERRLA, EOMI, Mucous Memb Moist/[place], Other (aphasic) Neck: Supple, No JVD Lungs: Clear to Auscultation Heart: Regular Rate Abdomen: Normal Bowel Sounds, Soft, No Tenderness Extremities: No Edema Neuro: Other (rt HP and aphasia) Results Lab Laboratory Tests 02/16/17 06:10: White Blood Count 9.1, Red Blood Count 4.14L, Hemoglobin 13.3, Hematocrit 41, Mean Corpuscular Volume 99, Mean Corpuscular Hemoglobin 32, Mean Corpuscular Hemoglobin Concent 33, Red Cell Distribution Width 14.6H, Platelet Count 243, Mean Platelet Volume 9.8, Neutrophils (%) (Auto) 68, Lymphocytes (%) (Auto) 18, Monocytes (%) (Auto) 11, Eosinophils (%) (Auto) 3, Basophils (%) (Auto) 1, Neutrophils # (Auto) 6.2, Lymphocytes # (Auto) 1.6, Monocytes # (Auto) 1.0, Eosinophils # (Auto) 0.3, Basophils # (Auto) 0.1, Sodium Level 142, Potassium Level 2.8L, Chloride Level 109H, Carbon Dioxide Level 21, Anion Gap 12, Blood Urea Nitrogen 18, Creatinine 0.65, Estimat Glomerular Filtration Rate > 60, BUN/ Creatinine Ratio 28, Glucose Level 90, Calcium Level 8.8, Total Bilirubin 0.9, Aspartate Amino Transf (AST/SGOT) 35H, Alanine Aminotransferase (ALT/SGPT) 28, Alkaline Phosphatase 92, Total Protein 6.4, Albumin 3.5 02/17/17 05:20: Sodium Level 144, Potassium Level 3.7, Chloride Level 114H, Carbon Dioxide Level 20L, Anion Gap 10, Blood Urea Nitrogen 25H, Creatinine 0.65, Estimat Glomerular Filtration Rate > 60, BUN/Creatinine Ratio 38, Glucose Level 90, Calcium Level 8.8, Magnesium Level 2.0 Assessment/Plan Assessment 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
--- NOTE | 2017-02-17 09:18 | Physical Therapy Daily Note ---
PT Daily Note-Current Subjective Pt sitting in recliner eating breakfast with Aide upon arrival. Nurse had just given morning meds. Pt agrees to PT. Pain Location: No Pain Reported Comment: PT asked pt about pain and pt shook head no. Mental Status Patient Orientation: Person, Place Transfers Functional [place] Measure 0=Not Assessed/NA 4=Minimal Assistance 1=Total Assistance 5=Supervision or Setup 2=Maximal Assistance 6=Modified [place] 3=Moderate Assistance 7=Complete IndependenceIRFPAI Quality Coding Scale 6 Independent with activity with or without an assistive device 5 Patient requires set up or clean up by helper. Patient completes activity by themselves 4 Supervision or touching assist (CGA). [place] provide cues , steadying assist 3 The helper provides less than half the effort to complete the activity 2 The helper provides more than half the effort to complete the activity 1 Dependent. The helper does all the effort to complete an activity 7 Patient refused to complete or attempt activity 9 The patient did not perform the activity before the current illness or injury 88 Not attempted due to Medical conditions or safety concerns Transfers (B, C, W/C) (FIM): 2 Scootin Sit to/from Stand: 3 Sit to Stand (QC): 2 Chair/Sdk-wg-[place] Xfer(QC): 2 Bed to/from Chair: 3 Weight Bearing Weight Bearing Restriction: Full Weight Bearing Location Restriction: LE Bilateral Gait Training Does the Patient Walk?: Yes Distance (FIM): 1=up to 49 ft Distance: 15' Walk 10 feet (QC): 2 Gait Level of Assist: 3 Gait Persons Needed: 1 Gait Assistive Device: FWW Pt needs Min A to advance RLE while ambulating. Pt's shahzad is slow but steady with no LOB. Pt is Mod A. Wheelchair Training Does the Pt Use a Wheelchair?: Yes Wheelchair Distance: 1=up to 49 ft Distance: 20' Wheelchair Level of Assist: 2 Type of Wheelchair: Manual Pt attempts to advance [facility] by propelling with LUE and bilat. LE although pt has difficulty and PT assist especially with maneuvering around obstacles and turning corners. Exercises Seated Therapy Exercises: Ankle pumps, Long arc quads, Hip flexion, Kicking activity, Hip abd/add (Attempted AB/AD but pt isn't able to complete unless AAROM) Seated Reps: 20 Treatments Pt transfers from recliner to standing to ambulate to [facility] at Mod A and needs VC for hand placement and sequencing. Pt ambulates to [facility] to propel to Therapy Gym. Pt then completes Sit to Stand at //bars X6. After short rest, pt completes Seated Ex then another short rest. Pt is fatigued so PT assists in wheeling pt back to room. Pt transfers from [facility] to recliner at Mod A using FWW. Pt rest in recliner at end of tx with all needs met. Assessment Current Status: Fair Progress Pt still has difficulty communicating and uses nods and shakes head to answer questions PT asks. Pt has some difficulty with advancing RLE during ambulation and PT assists. PT Short Term Goals Short Term Goals Time Frame: Mar 01, 2017 Transfers (B,C,W/C) (FIM): 4 Gait (FIM): 4 Distance (FIM): 3=150 ft Gait Assistive Device: FWW Wheelchair Distance: 30' x 3 Stairs (FIM): 2 # of Steps: 4 PT Social Media Developer Goals Social Media Developer Goals PT Social Media Developer Goals Time Frame: March 15, 2017 Transfers (B,C,W/C) (FIM): 6 Sit to Lying (QC): 6 Lying-Sitting on Side/Bed(QC): 6 Sit to Stand (QC): 6 Rollin Roll Left to Right (QC): 6 Chair/Rhc-xj-Lpdmm Xfer(QC): 6 Car Transfer (QC): 5 Does the Patient Walk: Yes Gait (FIM): 6 Gait distance (FIM): 3=150 ft Walk 10 feet (QC): 6 Walk 10ft-Uneven Surface(QC): 6 Walk 50ft with 2 Turns (QC): 6 Walk 150 ft (QC): 6 Gait Level of Assist: 6 Gait Assistive Device: FWW Does the Pt use WC or Scooter?: No Stairs (FIM): 5 # of Steps: 8 1 Step (curb) (QC): 6 4 Steps (QC): 5 12 Steps (QC): 9 Stairs Level Of Assist: 6 Picking up an Object (QC): 4 PT Plan Problem List Problem List: Activity Tolerance, Functional Strength, Safety, Balance, Gait, Transfer, Bed Mobility, ROM Treatment/Plan Treatment Plan: Continue Plan of Care Treatment Plan: Bed Mobility, Education, Functional Activity [place], Functional Strength, Group Therapy, Gait, Safety, Therapeutic Exercise, Transfers Treatment Duration: March 15, 2017 Visits Per Week: 10-15 Minutes/Day (M-F): 60-90 Minutes/Day (Sat/Anders): prn Safety Risks/Education Patient Education: Gait Training, Transfer Techniques, Correct Positioning, W/ C Management, Safety Issues Teaching Recipient: Patient Teaching Methods: Discussion Response to Teaching: Reinforcement Needed Time/GCodes Time In: 815 Time Out: 905 Total Billed Treatment Time: 50 Total Billed Treatment visit, [facility] (10m), FA (20m) & EX (20m) JESSICA VIRGEN FINAL FINISHER Feb 17, 2017 09:18
--- NOTE | 2017-02-17 10:01 | Progress Note-Cardiology ---
Cardiology SOAP Progress Note Subjective: Sitting up in a chair at the bedside. More interactive today. Verbalizes no c/ o pain, shortness of breath, palpitations, syncope. Objective: I&O/Vital Signs Intake and Output 02/17/17 00:00 Intake Total 600 ml Balance 600 ml Weight (Pounds): 145 Weight (Ounces): 1.0 Weight (Calculated Kilograms): 65.759188 Constitutional: other (does not interact; slow to respond, but did say "OK" when instructed her we will monitor the heart) Cardiovascular: irregularly irregular, systolic murmur (soft [place] at cardiac base) Gastrointestional: No tender, soft, round, audible bowel sounds Extremities: No significant edema Neurologic/Psychiatric: other (3/5 R leg; 3/5 R UE) Skin: No ulcerations Results/Procedures: Labs Laboratory Tests 02/17/17 05:20: Sodium Level 144, Potassium Level 3.7, Chloride Level 114H, Carbon Dioxide Level 20L, Anion Gap 10, Blood Urea Nitrogen 25H, Creatinine 0.65, Estimat Glomerular Filtration Rate > 60, BUN/Creatinine Ratio 38, Glucose Level 90, Calcium Level 8.8, Magnesium Level 2.0 A/P: Assessment: Acute ischemic L-sided CVA, 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 The only history provided to me is that of traumatic head bleed. This presentation was with ischemic ( thromboembolic) CVA, as confirmed on MRI, that is likely related to patient's chronic atrial fib. There is no intracranial bleed on MRI of this admission. Continue Eliquis Her heart rate currently appears controlled. Consider BB or CCB for vent rate control if that becomes an issue Management of stroke all noncardiac issues is with Dr Otto Continue current regimen Monitor lab Physician Assessment Physician Assessment Lungs: good bilat air entry Cor: irreg A&R * As documented in our note above LUIS ALBERTO LOMELI PEDIATRIC CLINICAL DIETICIAN Feb 17, 2017 10:01 PATRICK GARCIA MD FACP [facility] Feb 17, 2017 18:14
--- NOTE | 2017-02-17 11:08 | Speech Therapy Daily Note ---
Speech Daily Progress Note Subjective The patient was seated upright in recliner upon entrance. The patient did not attempt eye contact upon entrance and made no attempts at verbalizations. The patient's eye gaze minimally crosses midline, demonstrating significant right sided neglect. Objective Yes/No: Orientation information (patient's name, date of , location, month ) was provided to the patient in Yes/No format. The patient was encouraged to respond to yes/no questions by pointing to the accurate word (yes or no), eye gazing at the appropriate word (yes/no), head nodding, or verbalizing. The patient demonstrated inconsistent accuracy with yes/no questions, demonstrating head nods, only. The patient was observed to state "okay" to the physician, however, made no attempts at verbalization throughout the session. Object Identification: The patient was unable to identify a common object in a field of two by pointing, verbalizations, or eye gaze. Phoneme Repetition: The patient did not make any attempts at repeating single bilabial phonemes. One-Step Commands: The patient followed the command to "open mouth," however, did not follow any additional one-step commands with maximum clinician cueing on this date. Assessment Assessment Current Status: Poor Progress Treatment Plan Continue Plan of Care Communication Comprehension: 1 Expression: 1 Social Cognition Social Interaction: 1 Problem Solvin Memory: 1 Speech Short Term Goals Short Term Goals Short Term Goals 1. The patient will demonstrate swallowing strategies with 80% accuracy and mild clinician verbal cueing. 2. The patient will demonstrate dysphagia strengthening exercises with 80% accuracy and mild clinician verbal cueing. 3. The patient will repeat single, bilabial phonemes with 80% accuracy and maximum clinician verbal cueing. 4. The patient will identify common objects in a field of two. 5. The patient will display 80% accuracy with simple yes/no questions through pointing, head nods, or verbalizations. Time Frame-STG: Four Weeks Speech Custodial Goals Custodial Goals 1. The patient will tolerate the least restrictive diet without signs/symptoms of aspiration or laryngeal penetration. 2. The patient will demonstrate improved expressive and receptive language for increased function and safety with ADL's in the least restrictive setting. Time Frame: Four Weeks Comprehension: 3 Expression: 2 Social Interaction: 3 Problem Solvin Memory: 2 Speech-Plan Treatment Plan Speech Therapy Treatment Plan: Continue Plan of Care Continue skilled speech pathology to target functional expressive and receptive communication. Treatment Duration: March 15, 2017 # of days/week Five. Visits Per Week: Five Minutes/Day (M-F): 30 Rehab Potential: Guarded Safety Risks/Education Teaching Recipient: Patient Teaching Methods: Demonstration, Discussion Response to Teaching: Unable to Comprehend Education Topics Provided: Verbal and Nonverbal Communication Strategies Time Speech Therapy Time In: 09:45 Speech Therapy Time Out: 10:15 Total Billed Time: 30 Billed Treatment Time 1, MATTHIEU BRAVO Feb 17, 2017 11:08
--- NOTE | 2017-02-17 12:44 | Occupational Ther Daily Note ---
OT Current Status-Daily Note Subjective Pt sleeping in bed, woke to name. Pt took time to fully wake. Pt agreed to therapy. Pt aphasic not able to rate pain. Mental Status/Objective Patient Orientation: Person, Non-Verbal/Aphasic Functional [place] Measure 0=Not Assessed/NA 4=Minimal Assistance 1=Total Assistance 5=Supervision or Setup 2=Maximal Assistance 6=Modified [place] 3=Moderate Assistance 7=Complete [place] ADL-Treatment Mod A to go from supine to sitting. Pt transferred from EOB to w/c with mod A. Mod A to transfer from w/c to shower using grabbars and shower bench. Pt required max A to bathe and cues to initiate using wash clothe. Max A for drying and donning upper/lower body clothing. Pt then was incontinent of bowel so transferred onto toilet. Toilet hygiene dependent. Max A to hike pants over hips. Pt ambulated with mod A from bathroom to recliner. Pt was set up for eating breakfast. Pt was able to make wants known with shaking head yes/no during set up of breakfast. Nrsg took over care of pt. Call light/phone in reach. All needs met in room. Functional [place] Measure 0=Not Assessed/NA 4=Minimal Assistance 1=Total Assistance 5=Supervision or Setup 2=Maximal Assistance 6=Modified [place] 3=Moderate Assistance 7=Complete IndependenceIRFPAI Quality Coding Scale 6 Independent with activity with or without an assistive device 5 Patient requires set up or clean up by helper. Patient completes activity by themselves 4 Supervision or touching assist (CGA). [place] provide cues , steadying assist 3 The helper provides less than half the effort to complete the activity 2 The helper provides more than half the effort to complete the activity 1 Dependent. The helper does all the effort to complete an activity 7 Patient refused to complete or attempt activity 9 The patient did not perform the activity before the current illness or injury 88 Not attempted due to Medical conditions or safety concerns Bathing (FIM): 2 Shower/Bathe Self (QC): 2 Upper Body (FIM): 2 Lower Body Dressing (FIM): 2 Toileting (FIM): 1 Shower Transfer(FIM): 3 OT Short Term Goals Short Term Goals Time Frame: Mar 01, 2017 Eating(FIM): 5 Grooming(FIM): 5 Bathing(FIM): 4 Upper Body Dressing(FIM): 4 Lower Body Dressing(FIM): 4 Toileting(FIM): 4 Transfers (B,C,W/C) (FIM): 4 Toilet/Commode Transfer(FIM): 4 Shower Transfer(FIM): 4 Additional Short Term Goals: 2-Verbalize Understanding, 3-ImproveStrength/[place] 1=Demonstrate adherence to instructed precautions during ADL tasks. 2=Patient will verbalize/demonstrate understanding of assistive devices/ modifications for ADL. 3=Patient will improve strength/tolerance for activity to enable patient to perform ADL's. OT Center Human Resources Manager Goals Center Human Resources Manager Goals Time Frame: March 15, 2017 Eating (FIM): 6 Eating (QC): 6 Groomin Oral Hygiene (QC): 6 Bathing(FIM): 5 Shower/Bathe Self (QC): 5 Upper Body Dressing(FIM): 5 Upper Body Dressing (QC): 5 Lower Body Dressing(FIM): 5 Lower Body Dressing (QC): 5 On/Off Footwear (QC): 5 Toileting(FIM): 6 Toileting Hygiene (QC): 6 Toilet/Commode Transfer(FIM): 6 Toilet/Commode Transfer (QC): 6 Shower Transfer(FIM): 6 Comprehension(FIM): 3 Expression (FIM): 2 Social Interaction(FIM): 3 Problem Solving(FIM): 2 Memory(FIM): 2 Additional Goals: 2-Verbalize Understanding, 3-ImproveStrength/[place] 1=Demonstrate adherence to instructed precautions during ADL tasks. 2=Patient will verbalize/demonstrate understanding of assistive devices/ modifications for ADL. 3=Patient will improve strength/tolerance for activity to enable patient to perform ADL's. OT Education/Plan Problem List/Assessment Pt would benefit from skilled OT to increase her independence in basic self care to allow her to return home safely with family and to decrease caregiver burden Discharge Recommendations Plan/Recommendations: Continue POC Treatment Plan/Plan of Care Patient would benefit from OT for education, treatment and training to promote independence in ADL's, mobility, safety and/or upper extremity function for ADL' s. Plan of Care: ADL Retraining, Functional Mobility, Group Exercise/Act as Ind ( education, exercise, functional acitivities, communication, memory, problem solving), UE Funct Exercise/Act, UE Neuromus Re-Ed/Coord, Visual/Perceptual Retrain Treatment Duration: March 15, 2017 Visits Per Week: 10-11 Minutes/Day (M-F): 75-90 Minutes/Day (Sat/Anders): PRN Agreement: Yes Rehab Potential: Guarded Time/GCodes Start Time: 07:00 Stop Time: 08:00 Total Time Billed (hr/min): 60 Billed Treatment Time 1 visit-ADL 4 (60 min) HUSSEIN PERDOMO Feb 17, 2017 12:44
--- NOTE | 2017-02-17 12:51 | Occupational Ther Daily Note ---
OT Current Status-Daily Note Subjective Pt alert, sitting up in recliner. Pt agreed to therapy. Unable to rate pain due to expressive aphasia. Mental Status/Objective Patient Orientation: Person, Non-Verbal/Aphasic Functional [place] Measure 0=Not Assessed/NA 4=Minimal Assistance 1=Total Assistance 5=Supervision or Setup 2=Maximal Assistance 6=Modified [place] 3=Moderate Assistance 7=Complete [place] ADL-Treatment Functional [place] Measure 0=Not Assessed/NA 4=Minimal Assistance 1=Total Assistance 5=Supervision or Setup 2=Maximal Assistance 6=Modified [place] 3=Moderate Assistance 7=Complete IndependenceIRFPAI Quality Coding Scale 6 Independent with activity with or without an assistive device 5 Patient requires set up or clean up by helper. Patient completes activity by themselves 4 Supervision or touching assist (CGA). [place] provide cues , steadying assist 3 The helper provides less than half the effort to complete the activity 2 The helper provides more than half the effort to complete the activity 1 Dependent. The helper does all the effort to complete an activity 7 Patient refused to complete or attempt activity 9 The patient did not perform the activity before the current illness or injury 88 Not attempted due to Medical conditions or safety concerns Eating (FIM): 4 (After set up, pt was able to use fork to spear carrots and grapes with L hand. Pt did use R hand to pick and shovel man one grape. Pt required initiation to start eating soup with spoon. Pt was able to bring utensils to mouth by self.) After therapy, family present in room and pt sitting in recliner eating soup on own. Call light/phone in reach. All needs met in room. OT Short Term Goals Short Term Goals Time Frame: Mar 01, 2017 Eating(FIM): 5 Grooming(FIM): 5 Bathing(FIM): 4 Upper Body Dressing(FIM): 4 Lower Body Dressing(FIM): 4 Toileting(FIM): 4 Transfers (B,C,W/C) (FIM): 4 Toilet/Commode Transfer(FIM): 4 Shower Transfer(FIM): 4 Additional Short Term Goals: 2-Verbalize Understanding, 3-ImproveStrength/[place] 1=Demonstrate adherence to instructed precautions during ADL tasks. 2=Patient will verbalize/demonstrate understanding of assistive devices/ modifications for ADL. 3=Patient will improve strength/tolerance for activity to enable patient to perform ADL's. OT Longterm Goals Longterm Goals Time Frame: March 15, 2017 Eating (FIM): 6 Eating (QC): 6 Groomin Oral Hygiene (QC): 6 Bathing(FIM): 5 Shower/Bathe Self (QC): 5 Upper Body Dressing(FIM): 5 Upper Body Dressing (QC): 5 Lower Body Dressing(FIM): 5 Lower Body Dressing (QC): 5 On/Off Footwear (QC): 5 Toileting(FIM): 6 Toileting Hygiene (QC): 6 Toilet/Commode Transfer(FIM): 6 Toilet/Commode Transfer (QC): 6 Shower Transfer(FIM): 6 Comprehension(FIM): 3 Expression (FIM): 2 Social Interaction(FIM): 3 Problem Solving(FIM): 2 Memory(FIM): 2 Additional Goals: 2-Verbalize Understanding, 3-ImproveStrength/[place] 1=Demonstrate adherence to instructed precautions during ADL tasks. 2=Patient will verbalize/demonstrate understanding of assistive devices/ modifications for ADL. 3=Patient will improve strength/tolerance for activity to enable patient to perform ADL's. OT Education/Plan Problem List/Assessment Pt would benefit from skilled OT to increase her independence in basic self care to allow her to return home safely with family and to decrease caregiver burden Discharge Recommendations Plan/Recommendations: Continue POC Treatment Plan/Plan of Care Patient would benefit from OT for education, treatment and training to promote independence in ADL's, mobility, safety and/or upper extremity function for ADL' s. Plan of Care: ADL Retraining, Functional Mobility, Group Exercise/Act as Ind ( education, exercise, functional acitivities, communication, memory, problem solving), UE Funct Exercise/Act, UE Neuromus Re-Ed/Coord, Visual/Perceptual Retrain Treatment Duration: March 15, 2017 Visits Per Week: 10-11 Minutes/Day (M-F): 75-90 Minutes/Day (Sat/Anders): PRN Agreement: Yes Rehab Potential: Guarded Time/GCodes Start Time: 11:30 Stop Time: 11:45 Total Time Billed (hr/min): 15 Billed Treatment Time 1 visit-FA 1 (15 min) HUSSEIN PERDOMO Feb 17, 2017 12:51
--- NOTE | 2017-02-17 15:01 | Therapy Group Daily Note ---
Therapy Daily Group Note Patient Education Topic Other List Below Exercises LE Seated Exercise, UE Exercise Other/Notes Pt was an active participant in OT/PT group. Due to aphasia, her helped her with introductions, for socialization. She attended to discussions on the rehab process, home emergency preparedness, rehab continuum and discharge preparation but didn't contribute vocally and her shared his experiences related to these topics. She did seated UE and LE exercise but needed physical assistance for initiation and to do them correctly. She was returned to her room per w/c, transferred mod assist to recliner and was left with all needs met, chair alarm on, present. Start Time: 13:00 Stop Time: 14:15 Total Billed Treatment Time: 75 Total Billed Treatment visit, 75 minutes group STEVEN JONES OT Feb 17, 2017 15:01
[2017-02-17 18:24] VITALS: BP 137/78
--- NOTE | 2017-02-17 18:50 | Individualized Plan of Care ---
Individualized Plan of Care Rehab Nursing IPOC Order Admission Date Feb 15, 2017 at 12:45 Current Orders Orders Patient Visit (02/17/17 ) Treat. Speech/Lang/Voice (02/17/17 ) Patient Visit (02/17/17 ) Wheelchair Mgmt/Propulsn 15min (02/17/17 ) Functional Activities, Ea 15 (02/17/17 ) Exercise Therap, Ea 15 Min (02/17/17 ) Patient Visit (02/17/17 ) Toilet every (bladder): (hrs): q 2hours while awake prn PT IPOC Problem List: Activity Tolerance, Functional Strength, Safety, Balance, Gait, Transfer, Bed Mobility, ROM Treatment Plan: Continue Plan of Care Bed Mobility, Education, Functional Activity [place], Functional Strength, Group Therapy, Gait, Safety, Therapeutic Exercise, Transfers Treatment Duration: March 15, 2017 Visits Per Week: 10-15 Minutes/Day (M-F): 60-90 Minutes/Day (Sat/Anders): prn OT IPOC Problems: Decreased UE Strength, Dependent Transfers, Impaired Bed Mobility, Impaired Cognition, Impaired Coordination, Impaired Funct Balance, Impaired Self -Care Skills, Visual-Perceptual Deficit OT Problems Pt would benefit from skilled OT to increase her independence in basic self care to allow her to return home safely with family and to decrease caregiver burden Plan of Care: ADL Retraining, Functional Mobility, Group Exercise/Act as Ind ( education, exercise, functional acitivities, communication, memory, problem solving), UE Funct Exercise/Act, UE Neuromus Re-Ed/Coord, Visual/Perceptual Retrain Treatment Duration: March 15, 2017 Visits Per Week: 10-11 Minutes/Day (M-F): 75-90 Minutes/Day (Sat/Anders): PRN ST IPOC Speech Therapy Treatment Plan: Continue Plan of Care Treatment Duration: March 15, 2017 Visits Per Week: Five Minutes/Day (M-F): 30 Physician IPOC Medical Issues being managed closely and that require the 24 hour availability of a physician: chronic a fib HTN RA with pain Gerd Medical Issues: Bowel/Bladder Function, DVT Prophylaxis, Falls Precautions, Fluid/Electrolyte/Nutrition Balance, Infection Protection, Pain Management, Other (List) (as per above) Brief Synthesis of Preadmission Screen, Post-Admission Evaluation, and Therapy Evaluations: 81 yo female who lives with spouse who sustained a 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
[2017-02-17] MEDS: SIMvastatin 40 MG (ZOCOR) TAB PO SCH (19:59)
[2017-02-17] MEDS: LATANOPROST 0.005% (XALATAN) OPHTH SOLN 2.5 ML OD SCH (20:00)
[2017-02-18 05:01] VITALS: BP 151/66
[2017-02-18] MEDS: LEVOTHYROXINE 75 MCG (LEVOTHROID) TABLET PO SCH (05:58)
[2017-02-18] MEDS: APIXABAN 5 MG (ELIQUIS) TABLET PO SCH ×2 (08:14→19:47)
[2017-02-18] MEDS: prednisoLONE 1% OPTH (PRED FORTE) 5 ML BTL OD SCH ×4 (08:14→19:50)
[2017-02-18] MEDS: CYCLOPENTOLATE 1% (CYCLOGYL) 2 ML DROPS OD SCH (08:14)
[2017-02-18] MEDS: GABAPENTIN 300 MG (NEURONTIN) CAP PO SCH ×2 (08:15→19:47)
[2017-02-18] MEDS: lisINopril 10 MG (PRINIVIL) TAB PO SCH (08:15)
[2017-02-18] MEDS: DIGOXIN 0.125 MG (LANOXIN) TAB PO SCH (08:15)
[2017-02-18] MEDS: PANTOPRAZOLE 20 MG TABLET (PROTONIX) PO SCH ×2 (08:15→19:47)
[2017-02-18] MEDS: ATENOLOL 25 MG (TENORMIN) TAB PO SCH (08:15)
[2017-02-18] MEDS: FOLIC ACID 1 MG TAB PO SCH ×2 (08:15→19:47)
[2017-02-18] MEDS: BRIMONIDINE 0.2% (ALPHAGAN) OPHTH SOLN 5 ML BTL OU SCH ×3 (08:15→19:50)
[2017-02-18] MEDS: TIMOLOL MALEATE 0.5% 5 ML (TIMOPTIC) BTL OU SCH ×2 (08:15→19:50)
--- NOTE | 2017-02-18 08:45 | PM & R (SOAP) Progress Note ---
Subjective Subjective/Events-last exam Patient was seen in her room this AM with OT Ambulating with walker with mod assist of one with very slow shahzad to bathroom Strength returning in leg but speech still quite impaired Objective Exam Last Set of Vital Signs Vital Signs Date Time Temp Pulse Resp B/P (MAP) Pulse Ox O2 Delivery O2 Flow Rate FiO2 02/18/17 05:01 97.3 82 18 151/66 96 Room Air Capillary Refill : I&O Intake and Output 02/18/17 00:00 Intake Total 840 ml Balance 840 ml Intake Oral 840 ml # Urine Diapers 6 General: Alert, Cooperative, No Acute Distress HEENT: Atraumatic, PERRLA, EOMI, Mucous Memb Moist/[place], Other (aphasic) Neck: Supple, No JVD Lungs: Clear to Auscultation Heart: Regular Rate Abdomen: Normal Bowel Sounds, Soft, No Tenderness Extremities: No Edema Neuro: Other (rt HP and aphasia) Results Lab Laboratory Tests 02/16/17 06:10: White Blood Count 9.1, Red Blood Count 4.14L, Hemoglobin 13.3, Hematocrit 41, Mean Corpuscular Volume 99, Mean Corpuscular Hemoglobin 32, Mean Corpuscular Hemoglobin Concent 33, Red Cell Distribution Width 14.6H, Platelet Count 243, Mean Platelet Volume 9.8, Neutrophils (%) (Auto) 68, Lymphocytes (%) (Auto) 18, Monocytes (%) (Auto) 11, Eosinophils (%) (Auto) 3, Basophils (%) (Auto) 1, Neutrophils # (Auto) 6.2, Lymphocytes # (Auto) 1.6, Monocytes # (Auto) 1.0, Eosinophils # (Auto) 0.3, Basophils # (Auto) 0.1, Sodium Level 142, Potassium Level 2.8L, Chloride Level 109H, Carbon Dioxide Level 21, Anion Gap 12, Blood Urea Nitrogen 18, Creatinine 0.65, Estimat Glomerular Filtration Rate > 60, BUN/ Creatinine Ratio 28, Glucose Level 90, Calcium Level 8.8, Total Bilirubin 0.9, Aspartate Amino Transf (AST/SGOT) 35H, Alanine Aminotransferase (ALT/SGPT) 28, Alkaline Phosphatase 92, Total Protein 6.4, Albumin 3.5 02/17/17 05:20: Sodium Level 144, Potassium Level 3.7, Chloride Level 114H, Carbon Dioxide Level 20L, Anion Gap 10, Blood Urea Nitrogen 25H, Creatinine 0.65, Estimat Glomerular Filtration Rate > 60, BUN/Creatinine Ratio 38, Glucose Level 90, Calcium Level 8.8, Magnesium Level 2.0 Assessment/Plan Assessment 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
--- NOTE | 2017-02-18 10:27 | Occupational Ther Daily Note ---
OT Current Status-Daily Note Subjective Pt alert, sitting in recliner with nrsg assisting pt to eat. Pt non-verbal aphasic, shook head yes when RODNEY asked to assist her. Mental Status/Objective Patient Orientation: Person, Non-Verbal/Aphasic Functional [place] Measure 0=Not Assessed/NA 4=Minimal Assistance 1=Total Assistance 5=Supervision or Setup 2=Maximal Assistance 6=Modified [place] 3=Moderate Assistance 7=Complete [place] ADL-Treatment Functional [place] Measure 0=Not Assessed/NA 4=Minimal Assistance 1=Total Assistance 5=Supervision or Setup 2=Maximal Assistance 6=Modified [place] 3=Moderate Assistance 7=Complete IndependenceIRFPAI Quality Coding Scale 6 Independent with activity with or without an assistive device 5 Patient requires set up or clean up by helper. Patient completes activity by themselves 4 Supervision or touching assist (CGA). [place] provide cues , steadying assist 3 The helper provides less than half the effort to complete the activity 2 The helper provides more than half the effort to complete the activity 1 Dependent. The helper does all the effort to complete an activity 7 Patient refused to complete or attempt activity 9 The patient did not perform the activity before the current illness or injury 88 Not attempted due to Medical conditions or safety concerns Eating (FIM): 5 (RODNEY place plate guard around pt's plate to assist with pt scooping food onto utensils. After set up, pt was able to scoop and bring food to mouth with minimal spillage. Pt would hold items in R hand then forget that they were there.) Grooming (FIM): 4 (After set up, pt was able to complete grooming tasks sitting in w/c at sink. Pt did require verbal/physical cues to use utensils correctly. Attempted to comb hair with toothbrush and brush teeth with hair brush.) Bathing (FIM): 4 (With guidance pt was able to complete sponge bath to cleanse upper body and jose rafael area. Min A for standing when pt bathed jose rafael area.) Upper Body (FIM): 5 (After set up, pt able to don/doff upper body clothing.) Lower Body Dressing (FIM): 2 (Pt required assistance to don/doff over feet then min A when standing while pt hiked pants over hips.) Toileting (FIM): 2 (Pt incontinent. Pt will cleanse jose rafael area with physical cues and cloth placed in hand. Has demonstrated ability to hike pants over hips with assist to stand.) Transfers (B, C, W/C) (FIM): 3 (Pt requires time to motor process sequence of standing. When pt begins to complete sit to stand and pivot transfers it is inconsistent from mod A to min A.) Toilet/Commode Transfer (FIM): 3 (Pt requires time to motor process sequence of standing. When pt begins to complete sit to stand and pivot transfers it is inconsistent from mod A to min A) Pt requires increased time to complete tasks due to slow motor processing difficulties and expressive aphasia. After therapy, pt sitting in recliner with call light/phone in reach. All needs met in room. OT Short Term Goals Short Term Goals Time Frame: Mar 01, 2017 Eating(FIM): 5 Grooming(FIM): 5 Bathing(FIM): 4 Upper Body Dressing(FIM): 4 Lower Body Dressing(FIM): 4 Toileting(FIM): 4 Transfers (B,C,W/C) (FIM): 4 Toilet/Commode Transfer(FIM): 4 Shower Transfer(FIM): 4 Additional Short Term Goals: 2-Verbalize Understanding, 3-ImproveStrength/[place] 1=Demonstrate adherence to instructed precautions during ADL tasks. 2=Patient will verbalize/demonstrate understanding of assistive devices/ modifications for ADL. 3=Patient will improve strength/tolerance for activity to enable patient to perform ADL's. OT Shipping Assistant Goals [facility] Goals Time Frame: March 15, 2017 Eating (FIM): 6 Eating (QC): 6 Groomin Oral Hygiene (QC): 6 Bathing(FIM): 5 Shower/Bathe Self (QC): 5 Upper Body Dressing(FIM): 5 Upper Body Dressing (QC): 5 Lower Body Dressing(FIM): 5 Lower Body Dressing (QC): 5 On/Off Footwear (QC): 5 Toileting(FIM): 6 Toileting Hygiene (QC): 6 Toilet/Commode Transfer(FIM): 6 Toilet/Commode Transfer (QC): 6 Shower Transfer(FIM): 6 Comprehension(FIM): 3 Expression (FIM): 2 Social Interaction(FIM): 3 Problem Solving(FIM): 2 Memory(FIM): 2 Additional Goals: 2-Verbalize Understanding, 3-ImproveStrength/[place] 1=Demonstrate adherence to instructed precautions during ADL tasks. 2=Patient will verbalize/demonstrate understanding of assistive devices/ modifications for ADL. 3=Patient will improve strength/tolerance for activity to enable patient to perform ADL's. OT Education/Plan Problem List/Assessment Pt would benefit from skilled OT to increase her independence in basic self care to allow her to return home safely with family and to decrease caregiver burden Discharge Recommendations Plan/Recommendations: Continue POC Treatment Plan/Plan of Care Patient would benefit from OT for education, treatment and training to promote independence in ADL's, mobility, safety and/or upper extremity function for ADL' s. Plan of Care: ADL Retraining, Functional Mobility, Group Exercise/Act as Ind ( education, exercise, functional acitivities, communication, memory, problem solving), UE Funct Exercise/Act, UE Neuromus Re-Ed/Coord, Visual/Perceptual Retrain Treatment Duration: March 15, 2017 Visits Per Week: 10-11 Minutes/Day (M-F): 75-90 Minutes/Day (Sat/Anders): PRN Agreement: Yes Rehab Potential: Guarded Time/GCodes Start Time: 07:00 Stop Time: 08:00 Total Time Billed (hr/min): 60 Billed Treatment Time 1 visit-FA 4 (60 min) HUSSEIN PERDOMO Feb 18, 2017 10:27
--- NOTE | 2017-02-18 10:39 | Progress Note-Hospitalist ---
Progress Note Progress Notes/Assess & Plan Date Seen 02/18/17 [place]/Assessment & Plan Speech therapy evaluation: Pt is now up to 90% reliable on yes/no test. Patient Interview: Physical exam was stable. Pt denies needing anything. Scribed by Arnold Moore under the direct supervision of Dr. Otto. AFVSS, [place], O x ~3 diff to ascertain Irr Irr, CTAB right sided HP Assessment: s/p acute ischemic stroke with right sided facial droop and weakness hemiparesis h/o hemorrhagic CVA 2014 Chronic AF RA HTN Plan: CECILLE Ott DO Feb 18, 2017 10:39
--- NOTE | 2017-02-18 11:33 | Speech Therapy Daily Note ---
Speech Daily Progress Note Subjective The patient was seated upright in recliner upon entrance. The patient made immediate eye contact with the clinician and her gaze continued to follow her throughout the room. The patient agreed to participate in speech and language on this date by providing the patient with a head nod. Objective To note- The patient demonstrated increased attempts at verbal and nonverbal communication on this date (stating "sure" to the clinician, as well as, replying appropriately to the social work faculty member). Yes/No Reliability: The patient demonstrated a significant improvement with yes/ no reliability (0% prior session). While the patient is unable to verbalize yes/ no or identify yes/no in written format, the patient displayed 90% accuracy with yes/no head nods. Object Naming: The patient was unable to identify an object in isolation or in a field of two by name or function. Repetition: The patient was unable to repeat, model single phonemes or single words following clinician cue. One-Step Commands: The patient demonstrated 70% accuracy with simple, one-step commands with moderate clinician cueing, including intermittent direct modeling. Assessment Assessment Current Status: Fair Progress Treatment Plan Continue Plan of Care Communication Comprehension: 2 Expression: 1 Social Cognition Social Interaction: 1 Problem Solvin Memory: 1 Speech Short Term Goals Short Term Goals Short Term Goals 1. The patient will demonstrate swallowing strategies with 80% accuracy and mild clinician verbal cueing. 2. The patient will demonstrate dysphagia strengthening exercises with 80% accuracy and mild clinician verbal cueing. 3. The patient will repeat single, bilabial phonemes with 80% accuracy and maximum clinician verbal cueing. 4. The patient will identify common objects in a field of two. 5. The patient will display 80% accuracy with simple yes/no questions through pointing, head nods, or verbalizations. PROGRESSING 02/18/17 Time Frame-STG: Four Weeks Speech Senior Living Goals Senior Living Goals 1. The patient will tolerate the least restrictive diet without signs/symptoms of aspiration or laryngeal penetration. 2. The patient will demonstrate improved expressive and receptive language for increased function and safety with ADL's in the least restrictive setting. Time Frame: Four Weeks Comprehension: 3 Expression: 2 Social Interaction: 3 Problem Solvin Memory: 2 Speech-Plan Treatment Plan Speech Therapy Treatment Plan: Continue Plan of Care Continue speech pathology intervention to target improved receptive and expressive communication skills. Treatment Duration: March 15, 2017 # of days/week Five. Visits Per Week: Five Minutes/Day (M-F): 30 Rehab Potential: Guarded Safety Risks/Education Teaching Recipient: Patient Teaching Methods: Demonstration Response to Teaching: Unable to Return Demonstration Education Topics Provided: Orientation Information, Bilabial Single Word Practice Sheet Time Speech Therapy Time In: 09:45 Speech Therapy Time Out: 10:15 Total Billed Time: 30 Billed Treatment Time 1, MATTHIEU BRAVO Feb 18, 2017 11:33
--- NOTE | 2017-02-18 11:43 | Occupational Ther Daily Note ---
OT Current Status-Daily Note Subjective Pt alert, finishing up with PT. RODNEY/L took over care of pt. Pt agreed to therapy. Mental Status/Objective Patient Orientation: Person, Non-Verbal/Aphasic Functional [place] Measure 0=Not Assessed/NA 4=Minimal Assistance 1=Total Assistance 5=Supervision or Setup 2=Maximal Assistance 6=Modified [place] 3=Moderate Assistance 7=Complete [place] ADL-Treatment Functional [place] Measure 0=Not Assessed/NA 4=Minimal Assistance 1=Total Assistance 5=Supervision or Setup 2=Maximal Assistance 6=Modified [place] 3=Moderate Assistance 7=Complete IndependenceIRFPAI Quality Coding Scale 6 Independent with activity with or without an assistive device 5 Patient requires set up or clean up by helper. Patient completes activity by themselves 4 Supervision or touching assist (CGA). [place] provide cues , steadying assist 3 The helper provides less than half the effort to complete the activity 2 The helper provides more than half the effort to complete the activity 1 Dependent. The helper does all the effort to complete an activity 7 Patient refused to complete or attempt activity 9 The patient did not perform the activity before the current illness or injury 88 Not attempted due to Medical conditions or safety concerns Eating (FIM): 4 (Pt requires set up and food items placed on L side so that pt is completing more of eating by self. Pt is using regular utensils by self. Pt is demonstrating more consisistency with yes/no during eating.) Other Treatment Pt sitting in recliner. Pt worked on fine motor and visual perceptual skills. Pt has demonstrated decreased visual tracking toward R side. With cues pt was able to find objects on right side then was able to match colors, initially visual cues to assist finding each item and identifying color by matching. Pt lost focus in middle of task and required more assistance with finding match and where items where located. After therapy, pt sitting in recliner with present. Call light/phone in reach. All needs met in room. OT Short Term Goals Short Term Goals Time Frame: Mar 01, 2017 Eating(FIM): 5 Grooming(FIM): 5 Bathing(FIM): 4 Upper Body Dressing(FIM): 4 Lower Body Dressing(FIM): 4 Toileting(FIM): 4 Transfers (B,C,W/C) (FIM): 4 Toilet/Commode Transfer(FIM): 4 Shower Transfer(FIM): 4 Additional Short Term Goals: 2-Verbalize Understanding, 3-ImproveStrength/[place] 1=Demonstrate adherence to instructed precautions during ADL tasks. 2=Patient will verbalize/demonstrate understanding of assistive devices/ modifications for ADL. 3=Patient will improve strength/tolerance for activity to enable patient to perform ADL's. OT Packer Denture Goals Long-Term Goals Time Frame: March 15, 2017 Eating (FIM): 6 Eating (QC): 6 Groomin Oral Hygiene (QC): 6 Bathing(FIM): 5 Shower/Bathe Self (QC): 5 Upper Body Dressing(FIM): 5 Upper Body Dressing (QC): 5 Lower Body Dressing(FIM): 5 Lower Body Dressing (QC): 5 On/Off Footwear (QC): 5 Toileting(FIM): 6 Toileting Hygiene (QC): 6 Toilet/Commode Transfer(FIM): 6 Toilet/Commode Transfer (QC): 6 Shower Transfer(FIM): 6 Comprehension(FIM): 3 Expression (FIM): 2 Social Interaction(FIM): 3 Problem Solving(FIM): 2 Memory(FIM): 2 Additional Goals: 2-Verbalize Understanding, 3-ImproveStrength/[place] 1=Demonstrate adherence to instructed precautions during ADL tasks. 2=Patient will verbalize/demonstrate understanding of assistive devices/ modifications for ADL. 3=Patient will improve strength/tolerance for activity to enable patient to perform ADL's. OT Education/Plan Problem List/Assessment Pt would benefit from skilled OT to increase her independence in basic self care to allow her to return home safely with family and to decrease caregiver burden Discharge Recommendations Plan/Recommendations: Continue POC Treatment Plan/Plan of Care Patient would benefit from OT for education, treatment and training to promote independence in ADL's, mobility, safety and/or upper extremity function for ADL' s. Plan of Care: ADL Retraining, Functional Mobility, Group Exercise/Act as Ind ( education, exercise, functional acitivities, communication, memory, problem solving), UE Funct Exercise/Act, UE Neuromus Re-Ed/Coord, Visual/Perceptual Retrain Treatment Duration: March 15, 2017 Visits Per Week: 10-11 Minutes/Day (M-F): 75-90 Minutes/Day (Sat/Anders): PRN Agreement: Yes Rehab Potential: Guarded Time/GCodes Start Time: 11:15 Stop Time: 11:45 Total Time Billed (hr/min): 30 Billed Treatment Time 1 visit-NM 1 (15 min) FA 1 (15 min) HUSSEIN PERDOMO Feb 18, 2017 11:43
--- NOTE | 2017-02-18 12:54 | Physical Therapy Daily Note ---
PT Daily Note-Current Subjective Pt sitting in recliner upon arrival. Pt agrees to PT with nodding head. Pain Location: No Pain Reported Comment: Pt is aphasic and doesn't report pain, shakes head no. Mental Status Patient Orientation: Person, Non-Verbal/Aphasic Transfers Functional [place] Measure 0=Not Assessed/NA 4=Minimal Assistance 1=Total Assistance 5=Supervision or Setup 2=Maximal Assistance 6=Modified [place] 3=Moderate Assistance 7=Complete IndependenceIRFPAI Quality Coding Scale 6 Independent with activity with or without an assistive device 5 Patient requires set up or clean up by helper. Patient completes activity by themselves 4 Supervision or touching assist (CGA). [place] provide cues , steadying assist 3 The helper provides less than half the effort to complete the activity 2 The helper provides more than half the effort to complete the activity 1 Dependent. The helper does all the effort to complete an activity 7 Patient refused to complete or attempt activity 9 The patient did not perform the activity before the current illness or injury 88 Not attempted due to Medical conditions or safety concerns Transfers (B, C, W/C) (FIM): 4 Scootin Sit to/from Stand: 4 Sit to Stand (QC): 4 Weight Bearing Weight Bearing Restriction: Full Weight Bearing Location Restriction: LE Bilateral Gait Training Does the Patient Walk?: Yes Distance (FIM): 1=up to 49 ft Distance: 15' Walk 10 feet (QC): 4 Gait Level of Assist: 4 Gait Persons Needed: 1 Gait Assistive Device: FWW Pt able to advance RLE independently today but still takes extra effort for pt. Wheelchair Training Does the Pt Use a Wheelchair?: Yes Wheelchair Distance: 1=up to 49 ft Distance: 20' X2 Wheelchair Level of Assist: 2 Type of Wheelchair: Manual Exercises Seated Therapy Exercises: Ankle pumps, Sit to stand (6 reps with rest after each), Long arc quads, Hip flexion, Kicking activity Treatments Pt transfers from recliner using FWW at Min A. Pt ambulates using FWW at CGA for short distance to [facility]. Pt propels [facility] short distance with LUE and tries to use bilat. LE but not much use of LE for assistance. Pt completes Sit to Stands at //bars (6 times). Pt completes Seated Ex in [facility] but says "Ouch" to PF /DF so discontinue. Pt again tries to propel [facility] for short distance. Pt returns to room to rest in recliner at end of tx. Pt transfers back to recliner with all needs met at end of tx. Assessment Current Status: Fair Progress Pt is more independent with transfers and short distance ambulation than even yesterday's tx. Pt gets frustrated especially with trying to communicate although works hard to get better. PT Short Term Goals Short Term Goals Time Frame: Mar 01, 2017 Transfers (B,C,W/C) (FIM): 4 Gait (FIM): 4 Distance (FIM): 3=150 ft Gait Assistive Device: FWW Wheelchair Distance: 20' Stairs (FIM): 2 # of Steps: 4 PT Fpc Goals Quarter Lining Smoother Goals PT Quarter Lining Smoother Goals Time Frame: March 15, 2017 Transfers (B,C,W/C) (FIM): 6 Sit to Lying (QC): 6 Lying-Sitting on Side/Bed(QC): 6 Sit to Stand (QC): 6 Rollin Roll Left to Right (QC): 6 Chair/Qez-nv-Okkcx Xfer(QC): 6 Car Transfer (QC): 5 Does the Patient Walk: Yes Gait (FIM): 6 Gait distance (FIM): 3=150 ft Walk 10 feet (QC): 6 Walk 10ft-Uneven Surface(QC): 6 Walk 50ft with 2 Turns (QC): 6 Walk 150 ft (QC): 6 Gait Level of Assist: 6 Gait Assistive Device: FWW Does the Pt use WC or Scooter?: No Stairs (FIM): 5 # of Steps: 8 1 Step (curb) (QC): 6 4 Steps (QC): 5 12 Steps (QC): 9 Stairs Level Of Assist: 6 Picking up an Object (QC): 4 PT Plan Problem List Problem List: Activity Tolerance, Functional Strength, Safety, Balance, Gait, Transfer, Bed Mobility Treatment/Plan Treatment Plan: Continue Plan of Care Treatment Plan: Bed Mobility, Education, Functional Activity [place], Functional Strength, Group Therapy, Gait, Safety, Therapeutic Exercise, Transfers Treatment Duration: March 15, 2017 Visits Per Week: 10-15 Minutes/Day (M-F): 60-90 Minutes/Day (Sat/Anders): prn Safety Risks/Education Patient Education: Gait Training, Transfer Techniques, Correct Positioning, Safety Issues Teaching Recipient: Patient Teaching Methods: Discussion Response to Teaching: Verbalize Understanding Time/GCodes Time In: 1030 Time Out: 1115 Total Billed Treatment Time: 45 Total Billed Treatment visit, WC (15m), FA (15m) & EX (15m) JESSICA VIRGEN CHIEF SAFETY OFFICER Feb 18, 2017 12:54
[2017-02-18 14:31] LABS: BILIRUBIN,URINE NEGATIVE (NEGATIVE); KETONES,URINE NEGATIVE (NEGATIVE); LEUKOCYTE ESTERASE ,URINE 1+ (NEGATIVE); NITRITE,URINE NEGATIVE (NEGATIVE); PH,URINE 6 (5-9); PROTEIN,URINE 1+ (NEGATIVE); UROBILINOGEN,URINE NORMAL (NORMAL)
[2017-02-18 14:38] LABS: CALCIUM OXALATE CRYSTALS,UR LARGE /LPF; WBC,URINE RARE /HPF
--- NOTE | 2017-02-18 15:26 | Physical Therapy Daily Note ---
PT Daily Note-Current Subjective Patient is in recliner and nods her head to agree to PT. Pain Numeric Pain Scale: 0-No Pain Location: No Pain Reported Mental Status Patient Orientation: Non-Verbal/Aphasic Transfers Functional [place] Measure 0=Not Assessed/NA 4=Minimal Assistance 1=Total Assistance 5=Supervision or Setup 2=Maximal Assistance 6=Modified [place] 3=Moderate Assistance 7=Complete IndependenceIRFPAI Quality Coding Scale 6 Independent with activity with or without an assistive device 5 Patient requires set up or clean up by helper. Patient completes activity by themselves 4 Supervision or touching assist (CGA). [place] provide cues , steadying assist 3 The helper provides less than half the effort to complete the activity 2 The helper provides more than half the effort to complete the activity 1 Dependent. The helper does all the effort to complete an activity 7 Patient refused to complete or attempt activity 9 The patient did not perform the activity before the current illness or injury 88 Not attempted due to Medical conditions or safety concerns Transfers (B, C, W/C) (FIM): 4 Scootin Rollin Roll Left to Right (QC): 5 Supine to/from Sit: 4 Sit to/from Stand: 4 Sit to Lying (QC): 4 Sit to Stand (QC): 4 Chair/Cau-dr-Fvnbe Xfer(QC): 4 Bed to/from Chair: 4 min assist with sit to stand transfers and SPT to right; Patient performed pulling pants up and down to toilet CGA for balance safety Gait Training Does the Patient Walk?: Yes Gait (FIM): 1 Distance (FIM): 1=up to 49 ft Distance: 25' Walk 10 feet (QC): 3 Gait Level of Assist: 3 Gait Persons Needed: 1 Gait Assistive Device: FWW severe flexed hip posture in stand with FWW; noted festinating gait with no foot clearance bilaterally. Exercises Seated Therapy Exercises: Ankle pumps, Long arc quads Seated Reps: 15 Assessment Patient tolerated treatment and returned to bed with all 4 rails up and needs met. Patient fatigues quickly with exercise and gait. PT Short Term Goals Short Term Goals Time Frame: Mar 01, 2017 Transfers (B,C,W/C) (FIM): 4 Gait (FIM): 4 Distance (FIM): 3=150 ft Gait Assistive Device: FWW Wheelchair Distance: 20' X2 Stairs (FIM): 2 # of Steps: 4 PT Inspector Handbag Frames Goals Retirement Goals PT Retirement Goals Time Frame: March 15, 2017 Transfers (B,C,W/C) (FIM): 6 Sit to Lying (QC): 6 Lying-Sitting on Side/Bed(QC): 6 Sit to Stand (QC): 6 Rollin Roll Left to Right (QC): 6 Chair/Cxs-wo-Yejyv Xfer(QC): 6 Car Transfer (QC): 5 Does the Patient Walk: Yes Gait (FIM): 6 Gait distance (FIM): 3=150 ft Walk 10 feet (QC): 6 Walk 10ft-Uneven Surface(QC): 6 Walk 50ft with 2 Turns (QC): 6 Walk 150 ft (QC): 6 Gait Level of Assist: 6 Gait Assistive Device: FWW Does the Pt use WC or Scooter?: No Stairs (FIM): 5 # of Steps: 8 1 Step (curb) (QC): 6 4 Steps (QC): 5 12 Steps (QC): 9 Stairs Level Of Assist: 6 Picking up an Object (QC): 4 PT Plan Treatment/Plan Treatment Plan: Continue Plan of Care Treatment Plan: Bed Mobility, Education, Functional Activity [place], Functional Strength, Group Therapy, Gait, Safety, Therapeutic Exercise, Transfers Treatment Duration: March 15, 2017 Visits Per Week: 10-15 Minutes/Day (M-F): 60-90 Minutes/Day (Sat/Anders): prn Time/GCodes Time In: 1355 Time Out: 1425 Total Billed Treatment Time: 30 Total Billed Treatment 1 visit GT 15 min FA 15 min CHRISTIANNE HOWARD PT Feb 18, 2017 15:26
[2017-02-18 18:00] VITALS: BP 137/66
[2017-02-18] MEDS: SIMvastatin 40 MG (ZOCOR) TAB PO SCH (19:47)
[2017-02-18] MEDS: LATANOPROST 0.005% (XALATAN) OPHTH SOLN 2.5 ML OD SCH (19:49)
[2017-02-19 05:02] VITALS: BP 125/82
[2017-02-19] MEDS: LEVOTHYROXINE 75 MCG (LEVOTHROID) TABLET PO SCH (06:23)
[2017-02-19] MEDS: PANTOPRAZOLE 20 MG TABLET (PROTONIX) PO SCH ×2 (09:28→20:44)
[2017-02-19] MEDS: DIGOXIN 0.125 MG (LANOXIN) TAB PO SCH (09:29)
[2017-02-19] MEDS: lisINopril 10 MG (PRINIVIL) TAB PO SCH (09:29)
[2017-02-19] MEDS: FOLIC ACID 1 MG TAB PO SCH ×2 (09:29→20:44)
[2017-02-19] MEDS: ATENOLOL 25 MG (TENORMIN) TAB PO SCH (09:29)
[2017-02-19] MEDS: GABAPENTIN 300 MG (NEURONTIN) CAP PO SCH ×2 (09:29→20:44)
[2017-02-19] MEDS: BRIMONIDINE 0.2% (ALPHAGAN) OPHTH SOLN 5 ML BTL OU SCH ×3 (09:30→20:48)
[2017-02-19] MEDS: prednisoLONE 1% OPTH (PRED FORTE) 5 ML BTL OD SCH ×4 (09:30→20:42)
[2017-02-19] MEDS: CYCLOPENTOLATE 1% (CYCLOGYL) 2 ML DROPS OD SCH (09:31)
[2017-02-19] MEDS: TIMOLOL MALEATE 0.5% 5 ML (TIMOPTIC) BTL OU SCH ×2 (09:31→20:48)
[2017-02-19] MEDS: APIXABAN 5 MG (ELIQUIS) TABLET PO SCH ×2 (09:35→20:44)
--- NOTE | 2017-02-19 11:14 | Physical Therapy Daily Note ---
PT Daily Note-Current Subjective Patient is more alert and responding appropriately to PT questions and direction on exercises. Pain Numeric Pain Scale: 0-No Pain Location: No Pain Reported Mental Status Patient Orientation: Non-Verbal/Aphasic Transfers Functional [place] Measure 0=Not Assessed/NA 4=Minimal Assistance 1=Total Assistance 5=Supervision or Setup 2=Maximal Assistance 6=Modified [place] 3=Moderate Assistance 7=Complete IndependenceIRFPAI Quality Coding Scale 6 Independent with activity with or without an assistive device 5 Patient requires set up or clean up by helper. Patient completes activity by themselves 4 Supervision or touching assist (CGA). [place] provide cues , steadying assist 3 The helper provides less than half the effort to complete the activity 2 The helper provides more than half the effort to complete the activity 1 Dependent. The helper does all the effort to complete an activity 7 Patient refused to complete or attempt activity 9 The patient did not perform the activity before the current illness or injury 88 Not attempted due to Medical conditions or safety concerns Transfers (B, C, W/C) (FIM): 4 Scootin Sit to/from Stand: 4 Sit to Stand (QC): 4 close CGA (gait belt in place) with sit to stand transfers and SPT to left ( strong) side Gait Training Does the Patient Walk?: Yes Gait (FIM): 2 Distance (FIM): 9=970-63 ft Distance: 50' x 3 Walk 10 feet (QC): 4 Walk 50 ft with 2 Turns(QC): 4 Gait Level of Assist: 4 Gait Persons Needed: 1 Gait Assistive Device: FWW slow, shuffle gait sequence with no foot clearance with use of FWW; close CGA with gait belt in place for safety; (no LOB or festinating gait on this date with treatment) Wheelchair Training Does the Pt Use a Wheelchair?: Yes Wheelchair (FIM): 2 Wheelchair Distance: 9=082-23 ft Distance: 50' Wheelchair Level of Assist: 2 Type of Wheelchair: Manual Exercises Supine Ex: Ankle pumps, Quad Set, Heel Slides, Straight leg raise Supine Reps: 15 (2 sets with AAROM right LE ) Seated Therapy Exercises: Ankle pumps, Long arc quads Seated Reps: 15 NuStep Minutes: 10 (to improve reciprocal movement bilateral extremeties) NuStep Workload: 2 Assessment Patient is improving with treatment plan. Continue to address strength and mobility to ensure safe return to maximum LOF> PT Short Term Goals Short Term Goals Time Frame: Mar 01, 2017 Transfers (B,C,W/C) (FIM): 4 Gait (FIM): 4 Distance (FIM): 3=150 ft Gait Assistive Device: FWW Wheelchair Distance: 20' X2 Stairs (FIM): 2 # of Steps: 4 PT Residential Goals Residential Goals PT Multiple Knife Edge Trimmer Operator Goals Time Frame: March 15, 2017 Transfers (B,C,W/C) (FIM): 6 Sit to Lying (QC): 6 Lying-Sitting on Side/Bed(QC): 6 Sit to Stand (QC): 6 Rollin Roll Left to Right (QC): 6 Chair/Enw-md-Rvqsb Xfer(QC): 6 Car Transfer (QC): 5 Does the Patient Walk: Yes Gait (FIM): 6 Gait distance (FIM): 3=150 ft Walk 10 feet (QC): 6 Walk 10ft-Uneven Surface(QC): 6 Walk 50ft with 2 Turns (QC): 6 Walk 150 ft (QC): 6 Gait Level of Assist: 6 Gait Assistive Device: FWW Does the Pt use WC or Scooter?: No Stairs (FIM): 5 # of Steps: 8 1 Step (curb) (QC): 6 4 Steps (QC): 5 12 Steps (QC): 9 Stairs Level Of Assist: 6 Picking up an Object (QC): 4 PT Plan Treatment/Plan Treatment Plan: Continue Plan of Care Treatment Plan: Bed Mobility, Education, Functional Activity [place], Functional Strength, Group Therapy, Gait, Safety, Therapeutic Exercise, Transfers Treatment Duration: March 15, 2017 Visits Per Week: 10-15 Minutes/Day (M-F): 60-90 Minutes/Day (Sat/Anders): prn Time/GCodes Time In: 1015 Time Out: 1100 Total Billed Treatment Time: 45 Total Billed Treatment 1 visit EX x 2 25 min GT 20 min CHRISTIANNE HOWARD PT Feb 19, 2017 11:14
--- NOTE | 2017-02-19 11:27 | Occupational Ther Daily Note ---
OT Current Status-Daily Note Subjective Pt alert, sitting in recliner. Pt drank all drinks and ate grapes for breakfast , stated she didn't want anything else. Pt agreed to therapy. Unable to assess pain due to expressive aphasia. Mental Status/Objective Patient Orientation: Person, Non-Verbal/Aphasic Functional [place] Measure 0=Not Assessed/NA 4=Minimal Assistance 1=Total Assistance 5=Supervision or Setup 2=Maximal Assistance 6=Modified [place] 3=Moderate Assistance 7=Complete [place] ADL-Treatment Pt agreed to shower. Pt ambulated into bathroom with CGA using FWW. Pt transferred onto toilet though did not void or have BM. Pt pulled underwear over hips then stepped out of them with min A. Pt then transferred to shower using FWW, shower bench, grabbars with min A. Pt does better with one word direction then time to process. After set up, pt was able to bathe self while sitting on bench then using grabbars with min A to stand and bathe jose rafael area and buttocks. Pt incontinent of bowels in shower. Pt ambulated to toilet to use, but did not go anymore. Min A with donning dressing gown then assist to don underwear and socks. Pt stood with CGA and physical cue to hike pants over hips. Pt then ambulated back to room to sit in recliner. Pt declined completing oral care at this time. When handed hair brush pt brushed hair. After therapy, pt sitting in recliner with legs elevated, call light/phone in reach. All needs met in room. Functional [place] Measure 0=Not Assessed/NA 4=Minimal Assistance 1=Total Assistance 5=Supervision or Setup 2=Maximal Assistance 6=Modified [place] 3=Moderate Assistance 7=Complete IndependenceIRFPAI Quality Coding Scale 6 Independent with activity with or without an assistive device 5 Patient requires set up or clean up by helper. Patient completes activity by themselves 4 Supervision or touching assist (CGA). [place] provide cues , steadying assist 3 The helper provides less than half the effort to complete the activity 2 The helper provides more than half the effort to complete the activity 1 Dependent. The helper does all the effort to complete an activity 7 Patient refused to complete or attempt activity 9 The patient did not perform the activity before the current illness or injury 88 Not attempted due to Medical conditions or safety concerns Bathing (FIM): 4 Bathing Location: L Arm, R Arm, L Upper Leg, R Upper Leg, L Lower Leg ( including foot), R Lower Leg (including foot), Chest, Abdomen Shower/Bathe Self (QC): 3 Upper Body (FIM): 4 Upper Body Dressing (QC): 3 Lower Body Dressing (FIM): 2 Lower Body Dressing (QC): 2 Toileting (FIM): 2 Transfers (B, C, W/C) (FIM): 4 Toilet/Commode Transfer (FIM): 4 Toilet Transfer (QC): 3 Shower Transfer(FIM): 4 OT Short Term Goals Short Term Goals Time Frame: Mar 01, 2017 Eating(FIM): 5 Grooming(FIM): 5 Bathing(FIM): 4 Upper Body Dressing(FIM): 4 Lower Body Dressing(FIM): 4 Toileting(FIM): 4 Transfers (B,C,W/C) (FIM): 4 Toilet/Commode Transfer(FIM): 4 Shower Transfer(FIM): 4 Additional Short Term Goals: 2-Verbalize Understanding, 3-ImproveStrength/[place] 1=Demonstrate adherence to instructed precautions during ADL tasks. 2=Patient will verbalize/demonstrate understanding of assistive devices/ modifications for ADL. 3=Patient will improve strength/tolerance for activity to enable patient to perform ADL's. OT Neuropsychology Division Chief Goals Neuropsychology Division Chief Goals Time Frame: March 15, 2017 Eating (FIM): 6 Eating (QC): 6 Groomin Oral Hygiene (QC): 6 Bathing(FIM): 5 Shower/Bathe Self (QC): 5 Upper Body Dressing(FIM): 5 Upper Body Dressing (QC): 5 Lower Body Dressing(FIM): 5 Lower Body Dressing (QC): 5 On/Off Footwear (QC): 5 Toileting(FIM): 6 Toileting Hygiene (QC): 6 Toilet/Commode Transfer(FIM): 6 Toilet/Commode Transfer (QC): 6 Shower Transfer(FIM): 6 Comprehension(FIM): 3 Expression (FIM): 2 Social Interaction(FIM): 3 Problem Solving(FIM): 2 Memory(FIM): 2 Additional Goals: 2-Verbalize Understanding, 3-ImproveStrength/[place] 1=Demonstrate adherence to instructed precautions during ADL tasks. 2=Patient will verbalize/demonstrate understanding of assistive devices/ modifications for ADL. 3=Patient will improve strength/tolerance for activity to enable patient to perform ADL's. OT Education/Plan Problem List/Assessment Pt would benefit from skilled OT to increase her independence in basic self care to allow her to return home safely with family and to decrease caregiver burden Discharge Recommendations Plan/Recommendations: Continue POC Treatment Plan/Plan of Care Patient would benefit from OT for education, treatment and training to promote independence in ADL's, mobility, safety and/or upper extremity function for ADL' s. Plan of Care: ADL Retraining, Functional Mobility, Group Exercise/Act as Ind ( education, exercise, functional acitivities, communication, memory, problem solving), UE Funct Exercise/Act, UE Neuromus Re-Ed/Coord, Visual/Perceptual Retrain Treatment Duration: March 15, 2017 Visits Per Week: 10-11 Minutes/Day (M-F): 75-90 Minutes/Day (Sat/Anders): PRN Agreement: Yes Rehab Potential: Guarded Time/GCodes Start Time: 08:00 Stop Time: 09:00 Total Time Billed (hr/min): 60 Billed Treatment Time 1 visit-ADL 4 (60 min) HUSSEIN PERDOMO Feb 19, 2017 11:27
--- NOTE | 2017-02-19 12:43 | Speech Therapy Daily Note ---
Speech Daily Progress Note Subjective Pt upright in chair. 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 Objective The patient demonstrated frustration as she often shook her head no when given directions. Yes/no reliability completed with 70% accy via head nod/shake. Object naming completed with max verbal/visual cues. The patient was unable to repeat or imitate placement for correct production. 1-step commands attempted with max cues. Communication Comprehension: 2 Expression: 1 Social Cognition Social Interaction: 1 Problem Solvin Memory: 1 Speech Short Term Goals Short Term Goals Short Term Goals 1. The patient will demonstrate swallowing strategies with 80% accuracy and mild clinician verbal cueing. 2. The patient will demonstrate dysphagia strengthening exercises with 80% accuracy and mild clinician verbal cueing. 3. The patient will repeat single, bilabial phonemes with 80% accuracy and maximum clinician verbal cueing. 4. The patient will identify common objects in a field of two. 5. The patient will display 80% accuracy with simple yes/no questions through pointing, head nods, or verbalizations. PROGRESSING 02/18/17 Time Frame-STG: Four Weeks Speech Senior Care Goals Surgeon'S Assistant Goals 1. The patient will tolerate the least restrictive diet without signs/symptoms of aspiration or laryngeal penetration. 2. The patient will demonstrate improved expressive and receptive language for increased function and safety with ADL's in the least restrictive setting. Time Frame: Four Weeks Comprehension: 3 Expression: 2 Social Interaction: 3 Problem Solvin Memory: 2 Speech-Plan Treatment Plan Speech Therapy Treatment Plan: Continue Plan of Care Treatment Duration: March 15, 2017 Visits Per Week: Five Minutes/Day (M-F): 30 Rehab Potential: Fair Time Speech Therapy Time In: 09:45 Speech Therapy Time Out: 10:15 Billed Treatment Time 30 mins [address] Feb 19, 2017 12:43
--- NOTE | 2017-02-19 14:39 | Therapy Group Daily Note ---
Therapy Daily Group Note Patient Education Topic Other List Below (Community safety, phone and credit card scams, public safety and home safety) Other/Notes Pt transported to OT/PT group via w/c. Group consisted of introductions (name, place, sharing experiences), socialization, guest speaker from local police department that discussed different scams, public safety and home safety. They went into depth about phone and credit card scams and group members shared their stories about being scammed. The guest speaker relayed that there is a phone number that people could call at all times when there was not an emergency and a member of the police department would come and check on them. They reiterated that it was a service to the community. Pt transported back to room and transferred with max A to bed. Call light/phone in reach. All needs met in room. Start Time: 13:00 Stop Time: 14:15 Total Billed Treatment Time: 75 Total Billed Treatment 1-GRP HUSSEIN PERDOMO Feb 19, 2017 14:38
[2017-02-19 17:21] VITALS: BP 132/79
[2017-02-19] MEDS: SIMvastatin 40 MG (ZOCOR) TAB PO SCH (20:44)
[2017-02-19] MEDS: LATANOPROST 0.005% (XALATAN) OPHTH SOLN 2.5 ML OD SCH (20:47)
[2017-02-20 05:10] VITALS: BP 143/80
[2017-02-20] MEDS: LEVOTHYROXINE 75 MCG (LEVOTHROID) TABLET PO SCH (06:39)
[2017-02-20 08:20] VITALS: BP 135/91
[2017-02-20] MEDS: ATENOLOL 25 MG (TENORMIN) TAB PO SCH (08:22)
[2017-02-20] MEDS: FOLIC ACID 1 MG TAB PO SCH ×2 (08:22→21:24)
[2017-02-20] MEDS: APIXABAN 5 MG (ELIQUIS) TABLET PO SCH ×2 (08:22→21:24)
[2017-02-20] MEDS: GABAPENTIN 300 MG (NEURONTIN) CAP PO SCH ×2 (08:22→21:24)
[2017-02-20] MEDS: DIGOXIN 0.125 MG (LANOXIN) TAB PO SCH (08:22)
[2017-02-20] MEDS: PANTOPRAZOLE 20 MG TABLET (PROTONIX) PO SCH ×2 (08:22→21:24)
[2017-02-20] MEDS: lisINopril 10 MG (PRINIVIL) TAB PO SCH (08:22)
[2017-02-20] MEDS: TIMOLOL MALEATE 0.5% 5 ML (TIMOPTIC) BTL OU SCH ×2 (09:26→21:39)
[2017-02-20] MEDS: CYCLOPENTOLATE 1% (CYCLOGYL) 2 ML DROPS OD SCH (09:27)
[2017-02-20] MEDS: prednisoLONE 1% OPTH (PRED FORTE) 5 ML BTL OD SCH ×4 (09:28→21:40)
[2017-02-20] MEDS: BRIMONIDINE 0.2% (ALPHAGAN) OPHTH SOLN 5 ML BTL OU SCH ×3 (09:28→21:40)
--- NOTE | 2017-02-20 09:40 | Physical Therapy Daily Note ---
PT Daily Note-Current Subjective Patient adamantly declined OOB with shaking her head to the request. Patient does agree to exercises. Pain Numeric Pain Scale: 0-No Pain Location: No Pain Reported Mental Status Patient Orientation: Non-Verbal/Aphasic Transfers Functional [place] Measure 0=Not Assessed/NA 4=Minimal Assistance 1=Total Assistance 5=Supervision or Setup 2=Maximal Assistance 6=Modified [place] 3=Moderate Assistance 7=Complete IndependenceIRFPAI Quality Coding Scale 6 Independent with activity with or without an assistive device 5 Patient requires set up or clean up by helper. Patient completes activity by themselves 4 Supervision or touching assist (CGA). [place] provide cues , steadying assist 3 The helper provides less than half the effort to complete the activity 2 The helper provides more than half the effort to complete the activity 1 Dependent. The helper does all the effort to complete an activity 7 Patient refused to complete or attempt activity 9 The patient did not perform the activity before the current illness or injury 88 Not attempted due to Medical conditions or safety concerns Exercises Supine Ex: Ankle pumps, Quad Set, Heel Slides, Short Arc Quads, Straight leg raise, Hip abd/add Supine Reps: 10 (bilaterally) Assessment Patient tolerated minimal activity on this date. PT encouraged patient to increase in participate on this date, however, patient continued to shake her head no in response. PT will increase activity as tolerated by patient. PT Short Term Goals Short Term Goals Time Frame: Mar 01, 2017 Transfers (B,C,W/C) (FIM): 4 Gait (FIM): 4 Distance (FIM): 3=150 ft Gait Assistive Device: FWW Wheelchair Distance: 50' Stairs (FIM): 2 # of Steps: 4 PT Longterm Goals Longterm Goals PT Longterm Goals Time Frame: March 15, 2017 Transfers (B,C,W/C) (FIM): 6 Sit to Lying (QC): 6 Lying-Sitting on Side/Bed(QC): 6 Sit to Stand (QC): 6 Rollin Roll Left to Right (QC): 6 Chair/Rov-eo-Wapjq Xfer(QC): 6 Car Transfer (QC): 5 Does the Patient Walk: Yes Gait (FIM): 6 Gait distance (FIM): 3=150 ft Walk 10 feet (QC): 6 Walk 10ft-Uneven Surface(QC): 6 Walk 50ft with 2 Turns (QC): 6 Walk 150 ft (QC): 6 Gait Level of Assist: 6 Gait Assistive Device: FWW Does the Pt use WC or Scooter?: No Stairs (FIM): 5 # of Steps: 8 1 Step (curb) (QC): 6 4 Steps (QC): 5 12 Steps (QC): 9 Stairs Level Of Assist: 6 Picking up an Object (QC): 4 PT Plan Treatment/Plan Treatment Plan: Continue Plan of Care Treatment Plan: Bed Mobility, Education, Functional Activity [place], Functional Strength, Group Therapy, Gait, Safety, Therapeutic Exercise, Transfers Treatment Duration: March 15, 2017 Visits Per Week: 10-15 Minutes/Day (M-F): 60-90 Minutes/Day (Sat/Anders): prn Time/GCodes Time In: 925 Time Out: 935 Total Billed Treatment Time: 10 Total Billed Treatment 1 visit EX 10 min CHRISTIANNE HOWARD PT Feb 20, 2017 09:40
[2017-02-20 18:00] VITALS: BP 130/83
[2017-02-20] MEDS: SIMvastatin 40 MG (ZOCOR) TAB PO SCH (21:24)
[2017-02-20] MEDS: LATANOPROST 0.005% (XALATAN) OPHTH SOLN 2.5 ML OD SCH (21:40)
[2017-02-21 06:00] VITALS: BP 132/79
[2017-02-21] MEDS: LEVOTHYROXINE 75 MCG (LEVOTHROID) TABLET PO SCH (06:08)
[2017-02-21] MEDS: lisINopril 10 MG (PRINIVIL) TAB PO SCH (09:06)
[2017-02-21] MEDS: FOLIC ACID 1 MG TAB PO SCH ×2 (09:06→20:13)
[2017-02-21] MEDS: PANTOPRAZOLE 20 MG TABLET (PROTONIX) PO SCH ×2 (09:06→20:13)
[2017-02-21] MEDS: APIXABAN 5 MG (ELIQUIS) TABLET PO SCH ×2 (09:06→20:13)
[2017-02-21] MEDS: DIGOXIN 0.125 MG (LANOXIN) TAB PO SCH (09:06)
[2017-02-21] MEDS: ATENOLOL 25 MG (TENORMIN) TAB PO SCH (09:06)
[2017-02-21] MEDS: GABAPENTIN 300 MG (NEURONTIN) CAP PO SCH ×2 (09:07→20:13)
[2017-02-21] MEDS: BRIMONIDINE 0.2% (ALPHAGAN) OPHTH SOLN 5 ML BTL OU SCH ×3 (09:08→20:13)
[2017-02-21] MEDS: TIMOLOL MALEATE 0.5% 5 ML (TIMOPTIC) BTL OU SCH ×2 (09:08→20:03)
[2017-02-21] MEDS: prednisoLONE 1% OPTH (PRED FORTE) 5 ML BTL OD SCH ×4 (09:08→20:04)
[2017-02-21] MEDS: CYCLOPENTOLATE 1% (CYCLOGYL) 2 ML DROPS OD SCH (09:08)
[2017-02-21 18:25] VITALS: BP 109/73
[2017-02-21] MEDS: LATANOPROST 0.005% (XALATAN) OPHTH SOLN 2.5 ML OD SCH (20:12)
[2017-02-21] MEDS: SIMvastatin 40 MG (ZOCOR) TAB PO SCH (20:13)
[2017-02-22 05:31] VITALS: BP 119/79
[2017-02-22] MEDS: LEVOTHYROXINE 75 MCG (LEVOTHROID) TABLET PO SCH (05:43)
[2017-02-22] MEDS: PANTOPRAZOLE 20 MG TABLET (PROTONIX) PO SCH ×2 (08:16→20:01)
[2017-02-22] MEDS: DIGOXIN 0.125 MG (LANOXIN) TAB PO SCH (08:16)
[2017-02-22] MEDS: FOLIC ACID 1 MG TAB PO SCH ×2 (08:16→20:01)
[2017-02-22] MEDS: lisINopril 10 MG (PRINIVIL) TAB PO SCH (08:16)
[2017-02-22] MEDS: APIXABAN 5 MG (ELIQUIS) TABLET PO SCH ×2 (08:16→20:01)
[2017-02-22] MEDS: GABAPENTIN 300 MG (NEURONTIN) CAP PO SCH ×2 (08:16→20:01)
[2017-02-22] MEDS: ATENOLOL 25 MG (TENORMIN) TAB PO SCH (08:19)
[2017-02-22] MEDS: BRIMONIDINE 0.2% (ALPHAGAN) OPHTH SOLN 5 ML BTL OU SCH ×3 (08:20→20:00)
[2017-02-22] MEDS: prednisoLONE 1% OPTH (PRED FORTE) 5 ML BTL OD SCH ×4 (08:21→20:00)
[2017-02-22] MEDS: CYCLOPENTOLATE 1% (CYCLOGYL) 2 ML DROPS OD SCH (08:21)
[2017-02-22] MEDS: TIMOLOL MALEATE 0.5% 5 ML (TIMOPTIC) BTL OU SCH ×2 (08:21→20:00)
--- NOTE | 2017-02-22 11:35 | Physical Therapy Daily Note ---
PT Daily Note-Current Subjective Patient is in recliner and agrees to PT. Pain Numeric Pain Scale: 0-No Pain Location: No Pain Reported Mental Status Patient Orientation: Non-Verbal/Aphasic Transfers Functional [place] Measure 0=Not Assessed/NA 4=Minimal Assistance 1=Total Assistance 5=Supervision or Setup 2=Maximal Assistance 6=Modified [place] 3=Moderate Assistance 7=Complete IndependenceIRFPAI Quality Coding Scale 6 Independent with activity with or without an assistive device 5 Patient requires set up or clean up by helper. Patient completes activity by themselves 4 Supervision or touching assist (CGA). [place] provide cues , steadying assist 3 The helper provides less than half the effort to complete the activity 2 The helper provides more than half the effort to complete the activity 1 Dependent. The helper does all the effort to complete an activity 7 Patient refused to complete or attempt activity 9 The patient did not perform the activity before the current illness or injury 88 Not attempted due to Medical conditions or safety concerns Transfers (B, C, W/C) (FIM): 5 Scootin Sit to/from Stand: 4 Sit to Stand (QC): 4 Patient requires more skilled verbal instruction to perform safe sit to stand transfers for hand placement on armrest Gait Training Does the Patient Walk?: Yes Gait (FIM): 1 Distance (FIM): 1=up to 49 ft Distance: 45' x 6 Walk 10 feet (QC): 4 Gait Level of Assist: 4 Gait Persons Needed: 1 Gait Assistive Device: FWW decreased step length with increase in shuffle gait sequence with inability to demonstrate foot clearance bilaterally. Noted increase lean to right with increase in right neglect on this date. Exercises Seated Therapy Exercises: Ankle pumps, Long arc quads Seated Reps: 15 NuStep Minutes: 10 (to improve strength and reciprocal movement) NuStep Workload: 1 Assessment Patient fatigues with activity and is up in recliner with needs met. Patient is demonstrating increase in right neglect and lean on this date with an increase in fatigue. PT Short Term Goals Short Term Goals Time Frame: Mar 01, 2017 Transfers (B,C,W/C) (FIM): 4 Gait (FIM): 4 Distance (FIM): 3=150 ft Gait Assistive Device: FWW Wheelchair Distance: 50' Stairs (FIM): 2 # of Steps: 4 PT Button Cutting Machine Operator Goals Button Cutting Machine Operator Goals PT [facility] Goals Time Frame: March 15, 2017 Transfers (B,C,W/C) (FIM): 6 Sit to Lying (QC): 6 Lying-Sitting on Side/Bed(QC): 6 Sit to Stand (QC): 6 Rollin Roll Left to Right (QC): 6 Chair/Ddx-vu-Mpndn Xfer(QC): 6 Car Transfer (QC): 5 Does the Patient Walk: Yes Gait (FIM): 6 Gait distance (FIM): 3=150 ft Walk 10 feet (QC): 6 Walk 10ft-Uneven Surface(QC): 6 Walk 50ft with 2 Turns (QC): 6 Walk 150 ft (QC): 6 Gait Level of Assist: 6 Gait Assistive Device: FWW Does the Pt use WC or Scooter?: No Stairs (FIM): 5 # of Steps: 8 1 Step (curb) (QC): 6 4 Steps (QC): 5 12 Steps (QC): 9 Stairs Level Of Assist: 6 Picking up an Object (QC): 4 PT Plan Treatment/Plan Treatment Plan: Continue Plan of Care Treatment Plan: Bed Mobility, Education, Functional Activity [place], Functional Strength, Group Therapy, Gait, Safety, Therapeutic Exercise, Transfers Treatment Duration: March 15, 2017 Visits Per Week: 10-15 Minutes/Day (M-F): 60-90 Minutes/Day (Sat/Anders): prn Time/GCodes Time In: 1031 Time Out: 1116 Total Billed Treatment Time: 45 Total Billed Treatment 1 visit GT x 2 30 min EX 15 min CHRISTIANNE HOWARD PT Feb 22, 2017 11:35
--- NOTE | 2017-02-22 11:48 | Occupational Ther Daily Note ---
OT Current Status-Daily Note Subjective Pt alert, lying in bed. Pt still having difficulty forming appropriate wording to make wants and needs know. Pt did shake head yes to work with therapy and take shower. Mental Status/Objective Patient Orientation: Person, Non-Verbal/Aphasic Functional [place] Measure 0=Not Assessed/NA 4=Minimal Assistance 1=Total Assistance 5=Supervision or Setup 2=Maximal Assistance 6=Modified [place] 3=Moderate Assistance 7=Complete [place] ADL-Treatment Min A going from supine to sitting EOB. CGA using FWW when ambulating to bathroom. CGA to transfer onto toilet and verbal cues to doff underwear. Pt did not void or have BM on toilet. Pt transferred into/out of shower with min A using grabbars, FWW and shower bench. After set up, pt was able to bathe upper and lower body by self then CGA for balance while pt cleansed jose rafael area and buttocks. Pt required assist to dry LE, buttock and jose rafael area. Pt donned shirt by self after setup then min A for donning pants. Cues for which leg to place into pants first. This must be reiterated until there is consistent follow through. Pt then ambulated back to room and transferred into recliner with CGA using FWW. Then complete brushing hair and teeth after set up. Pt was able to brush hair appropriately then when given tooth brush pt attempted to brush hair with that. When guided to appropriate area, pt was able to complete by self. Pt cleansed mouth but would not spit out toothpaste and swallowed it. After therapy, pt left in care of HEEL SORTER. Call light/phone in reach. All needs met in room. Functional [place] Measure 0=Not Assessed/NA 4=Minimal Assistance 1=Total Assistance 5=Supervision or Setup 2=Maximal Assistance 6=Modified [place] 3=Moderate Assistance 7=Complete IndependenceIRFPAI Quality Coding Scale 6 Independent with activity with or without an assistive device 5 Patient requires set up or clean up by helper. Patient completes activity by themselves 4 Supervision or touching assist (CGA). [place] provide cues , steadying assist 3 The helper provides less than half the effort to complete the activity 2 The helper provides more than half the effort to complete the activity 1 Dependent. The helper does all the effort to complete an activity 7 Patient refused to complete or attempt activity 9 The patient did not perform the activity before the current illness or injury 88 Not attempted due to Medical conditions or safety concerns Grooming (FIM): 4 Oral Hygiene (QC): 3 Bathing (FIM): 4 Bathing Location: L Arm, R Arm, L Upper Leg, R Upper Leg, L Lower Leg ( including foot), R Lower Leg (including foot), Chest, Abdomen, Buttocks, Perineal Area Shower/Bathe Self (QC): 3 Upper Body (FIM): 4 Upper Body Dressing (QC): 3 Lower Body Dressing (FIM): 2 (RODNEY donned socks) Lower Body Dressing (QC): 2 (RODNEY donned socks) Toileting (FIM): 3 Toileting Hygiene (QC): 3 Transfers (B, C, W/C) (FIM): 4 Toilet/Commode Transfer (FIM): 4 Toilet Transfer (QC): 3 Shower Transfer(FIM): 4 OT Short Term Goals Short Term Goals Time Frame: Mar 01, 2017 Eating(FIM): 5 Grooming(FIM): 5 Bathing(FIM): 4 Upper Body Dressing(FIM): 4 Lower Body Dressing(FIM): 4 Toileting(FIM): 4 Transfers (B,C,W/C) (FIM): 4 Toilet/Commode Transfer(FIM): 4 Shower Transfer(FIM): 4 Additional Short Term Goals: 2-Verbalize Understanding, 3-ImproveStrength/[place] 1=Demonstrate adherence to instructed precautions during ADL tasks. 2=Patient will verbalize/demonstrate understanding of assistive devices/ modifications for ADL. 3=Patient will improve strength/tolerance for activity to enable patient to perform ADL's. OT Group Home Goals Computer Networking Instructor Goals Time Frame: March 15, 2017 Eating (FIM): 6 Eating (QC): 6 Groomin Oral Hygiene (QC): 6 Bathing(FIM): 5 Shower/Bathe Self (QC): 5 Upper Body Dressing(FIM): 5 Upper Body Dressing (QC): 5 Lower Body Dressing(FIM): 5 Lower Body Dressing (QC): 5 On/Off Footwear (QC): 5 Toileting(FIM): 6 Toileting Hygiene (QC): 6 Toilet/Commode Transfer(FIM): 6 Toilet/Commode Transfer (QC): 6 Shower Transfer(FIM): 6 Comprehension(FIM): 3 Expression (FIM): 2 Social Interaction(FIM): 3 Problem Solving(FIM): 2 Memory(FIM): 2 Additional Goals: 2-Verbalize Understanding, 3-ImproveStrength/[place] 1=Demonstrate adherence to instructed precautions during ADL tasks. 2=Patient will verbalize/demonstrate understanding of assistive devices/ modifications for ADL. 3=Patient will improve strength/tolerance for activity to enable patient to perform ADL's. OT Education/Plan Problem List/Assessment Pt would benefit from skilled OT to increase her independence in basic self care to allow her to return home safely with family and to decrease caregiver burden Discharge Recommendations Plan/Recommendations: Continue POC Treatment Plan/Plan of Care Patient would benefit from OT for education, treatment and training to promote independence in ADL's, mobility, safety and/or upper extremity function for ADL' s. Plan of Care: ADL Retraining, Functional Mobility, Group Exercise/Act as Ind ( education, exercise, functional acitivities, communication, memory, problem solving), UE Funct Exercise/Act, UE Neuromus Re-Ed/Coord, Visual/Perceptual Retrain Treatment Duration: March 15, 2017 Visits Per Week: 10-11 Minutes/Day (M-F): 75-90 Minutes/Day (Sat/Anders): PRN Agreement: Yes Rehab Potential: Fair Time/GCodes Start Time: 09:15 Stop Time: 10:00 Total Time Billed (hr/min): 45 Billed Treatment Time 1 visit-ADL 3 (45 min) HUSSEIN PERDOMO Feb 22, 2017 11:48
--- NOTE | 2017-02-22 13:27 | Speech Therapy Daily Note ---
Speech Daily Progress Note Subjective PATIENT ONLY USING HEAD NODS/SHAKES TO COMPLETE COMMUNICATIVE ATTEMPTS. ON OCCASION, THE PATIENT DID VERBALIZE "NO" BUT THIS WAS INTERMITTENT AND INCONSISTENT WITH SITUATIONS DURING THE TREATMENT SESSION. Objective THE PATIENT WAS TASKED WITH COMPLETION OF TASKS RELATED TO Y/N QUESTIONS, FOLLOWING AUTOMATIC TASKS (SORTING) WELL POINTING TO FAMILIAR OBJECTS FOLLOWING REQUESTS. ATTEMPTS WERE MADE TO ENGAGE THE PATIENT IN ORAL MOTOR EXERCISES BUT SHE WAS UNABLE TO COMPLETE THESE, EVEN WITH AUTOMATIC ELICITATION OF THESE TASKS. SHE WAS ABLE TO UTILIZE SOME COMPENSATORY SWALLOW STRATEGIES WITH MAX CUES FOR ALTERNATING LIQUIDS/SOLIDS AND COMPLETING A LIQUID WASH. Assessment Assessment Current Status: Good Progress Treatment Plan Continue Plan of Care Communication Comprehension: 2 Expression: 1 Social Cognition Social Interaction: 1 Problem Solvin Memory: 1 Speech Short Term Goals Short Term Goals Short Term Goals 1. The patient will demonstrate swallowing strategies with 80% accuracy and mild clinician verbal cueing. 2. The patient will demonstrate dysphagia strengthening exercises with 80% accuracy and mild clinician verbal cueing. 3. The patient will repeat single, bilabial phonemes with 80% accuracy and maximum clinician verbal cueing. 4. The patient will identify common objects in a field of two. 5. The patient will display 80% accuracy with simple yes/no questions through pointing, head nods, or verbalizations. PROGRESSING 02/18/17 Time Frame-STG: Four Weeks Speech Business Analyst Sales Operations Goals Intermediate Goals 1. The patient will tolerate the least restrictive diet without signs/symptoms of aspiration or laryngeal penetration. 2. The patient will demonstrate improved expressive and receptive language for increased function and safety with ADL's in the least restrictive setting. Time Frame: Four Weeks Comprehension: 3 Expression: 2 Social Interaction: 3 Problem Solvin Memory: 2 Speech-Plan Treatment Plan Speech Therapy Treatment Plan: Continue Plan of Care THE PATIENT WAS SLOW TO RESPOND TO THERAPEUTIC TASKS AND WOULD OFTEN REQUIRE THIS FRAUD INVESTIGATOR TO COMPLETE THE REQUESTED TASK AND THEN SHE WOULD COPY THE ACTIVITY. Treatment Duration: March 15, 2017 Visits Per Week: Five Minutes/Day (M-F): 30 Rehab Potential: Fair Time Speech Therapy Time In: 10:00 Speech Therapy Time Out: 10:30 Total Billed Time: 30 Billed Treatment Time 1, JERZY DELANEY FERDINANDYEIMY Feb 22, 2017 13:27
--- NOTE | 2017-02-22 14:39 | Therapy Group Daily Note ---
Therapy Daily Group Note Patient Education Topic Other List Below (Process of Arthritis, AE and exercises for pain relief) Exercises LE Seated Exercise, UE Exercise Other/Notes Pt transported to group via w/c. OT/PT group consisted of introductions (name, place living, favorite job), socialization, education on arthritis process and the Process of Arthritis, AE and exercises for pain relief and UE/LE seated exercises. Pt unable contributed to introductions and conversations appropriately due to expressive aphasia, was able to answer for her. Pt has weakness on R side and used one arm techniques to complete UE seated exercises. Pt was able to complete LE seated exercises with cues. Pt unable to demonstrate understanding of topic but was attentive throughout group. After therapy, pt sitting in recliner, visitors present in room. Call light/ phone in reach. All needs met in room. Start Time: 13:00 Stop Time: 14:15 Total Billed Treatment Time: 75 Total Billed Treatment 1-GRP HUSSEIN PERDOMO Feb 22, 2017 14:39
[2017-02-22 17:42] VITALS: BP 126/78
[2017-02-22] MEDS: LATANOPROST 0.005% (XALATAN) OPHTH SOLN 2.5 ML OD SCH (20:00)
[2017-02-22] MEDS: SIMvastatin 40 MG (ZOCOR) TAB PO SCH (20:01)
[2017-02-23 05:32] VITALS: BP 107/72
[2017-02-23] MEDS: LEVOTHYROXINE 75 MCG (LEVOTHROID) TABLET PO SCH (06:09)
[2017-02-23] MEDS: GABAPENTIN 300 MG (NEURONTIN) CAP PO SCH ×2 (08:13→20:31)
[2017-02-23] MEDS: FOLIC ACID 1 MG TAB PO SCH ×2 (08:13→20:31)
[2017-02-23] MEDS: APIXABAN 5 MG (ELIQUIS) TABLET PO SCH ×2 (08:13→20:32)
[2017-02-23] MEDS: DIGOXIN 0.125 MG (LANOXIN) TAB PO SCH (08:13)
[2017-02-23] MEDS: ATENOLOL 25 MG (TENORMIN) TAB PO SCH (08:13)
[2017-02-23] MEDS: PANTOPRAZOLE 20 MG TABLET (PROTONIX) PO SCH ×2 (08:13→20:31)
[2017-02-23] MEDS: lisINopril 10 MG (PRINIVIL) TAB PO SCH (08:13)
[2017-02-23] MEDS: prednisoLONE 1% OPTH (PRED FORTE) 5 ML BTL OD SCH ×4 (11:10→20:32)
[2017-02-23] MEDS: CYCLOPENTOLATE 1% (CYCLOGYL) 2 ML DROPS OD SCH (11:10)
[2017-02-23] MEDS: BRIMONIDINE 0.2% (ALPHAGAN) OPHTH SOLN 5 ML BTL OU SCH ×3 (11:12→20:35)
[2017-02-23] MEDS: TIMOLOL MALEATE 0.5% 5 ML (TIMOPTIC) BTL OU SCH ×2 (11:12→20:36)
--- NOTE | 2017-02-23 11:21 | Occupational Ther Daily Note ---
OT Current Status-Daily Note Subjective Pt alert, lying in bed. Pt agreed to therapy. Nrsg in room giving meds. Pt aphasic unable to asses pain. Mental Status/Objective Patient Orientation: Person, Non-Verbal/Aphasic Functional [place] Measure 0=Not Assessed/NA 4=Minimal Assistance 1=Total Assistance 5=Supervision or Setup 2=Maximal Assistance 6=Modified [place] 3=Moderate Assistance 7=Complete [place] ADL-Treatment Pt declined taking shower today. Pt did agree to take sponge bath. Pt was able to go from supine to sitting EOB with min A and HOB elevated slightly. Using FWW, pt able to ambulate to toilet with CGA. Pt transferred to toilet using FWW, grabbars and BSC with CGA. Pt sat for a few minutes and then was able to void. Pt transferred from toilet to w/c to complete sponge bath after set up. Pt required assist for feet and SBA in standing to complete jose rafael area/ buttocks. Pt able to complete all other areas with supervision and minimal verbal cues. Pt donned/doffed shirt by self after set up. SBA to doff pants, min A to don pants with verbal cues for sequencing. Initially giving pt items to don and letting pt motor plan on own prior to attempting verbal or physical cues. Pt will sit for approximately up to one minute before initiating task after that pt tends to get lost and requires verbal/physical cue to continue on task. Pt also needs cues for brushing hair and teeth, tendency to mix up brushes and use inappropriately. Pt able to doff socks by self then RODNEY needs to don. Pt sitting in w/c with needs met. Functional [place] Measure 0=Not Assessed/NA 4=Minimal Assistance 1=Total Assistance 5=Supervision or Setup 2=Maximal Assistance 6=Modified [place] 3=Moderate Assistance 7=Complete IndependenceIRFPAI Quality Coding Scale 6 Independent with activity with or without an assistive device 5 Patient requires set up or clean up by helper. Patient completes activity by themselves 4 Supervision or touching assist (CGA). [place] provide cues , steadying assist 3 The helper provides less than half the effort to complete the activity 2 The helper provides more than half the effort to complete the activity 1 Dependent. The helper does all the effort to complete an activity 7 Patient refused to complete or attempt activity 9 The patient did not perform the activity before the current illness or injury 88 Not attempted due to Medical conditions or safety concerns Grooming (FIM): 4 Oral Hygiene (QC): 4 Bathing (FIM): 4 Upper Body (FIM): 5 Lower Body Dressing (FIM): 3 On/Off Footwear (QC): 3 Toileting (FIM): 3 Transfers (B, C, W/C) (FIM): 4 Toilet/Commode Transfer (FIM): 4 OT Short Term Goals Short Term Goals Time Frame: Mar 01, 2017 Eating(FIM): 5 Grooming(FIM): 5 Bathing(FIM): 4 Upper Body Dressing(FIM): 4 Lower Body Dressing(FIM): 4 Toileting(FIM): 4 Transfers (B,C,W/C) (FIM): 4 Toilet/Commode Transfer(FIM): 4 Shower Transfer(FIM): 4 Additional Short Term Goals: 2-Verbalize Understanding, 3-ImproveStrength/[place] 1=Demonstrate adherence to instructed precautions during ADL tasks. 2=Patient will verbalize/demonstrate understanding of assistive devices/ modifications for ADL. 3=Patient will improve strength/tolerance for activity to enable patient to perform ADL's. OT Mcc Goals Mcc Goals Time Frame: March 15, 2017 Eating (FIM): 6 Eating (QC): 6 Groomin Oral Hygiene (QC): 6 Bathing(FIM): 5 Shower/Bathe Self (QC): 5 Upper Body Dressing(FIM): 5 Upper Body Dressing (QC): 5 Lower Body Dressing(FIM): 5 Lower Body Dressing (QC): 5 On/Off Footwear (QC): 5 Toileting(FIM): 6 Toileting Hygiene (QC): 6 Toilet/Commode Transfer(FIM): 6 Toilet/Commode Transfer (QC): 6 Shower Transfer(FIM): 6 Comprehension(FIM): 3 Expression (FIM): 2 Social Interaction(FIM): 3 Problem Solving(FIM): 2 Memory(FIM): 2 Additional Goals: 2-Verbalize Understanding, 3-ImproveStrength/[place] 1=Demonstrate adherence to instructed precautions during ADL tasks. 2=Patient will verbalize/demonstrate understanding of assistive devices/ modifications for ADL. 3=Patient will improve strength/tolerance for activity to enable patient to perform ADL's. OT Education/Plan Problem List/Assessment Pt would benefit from skilled OT to increase her independence in basic self care to allow her to return home safely with family and to decrease caregiver burden Discharge Recommendations Plan/Recommendations: Continue POC Treatment Plan/Plan of Care Patient would benefit from OT for education, treatment and training to promote independence in ADL's, mobility, safety and/or upper extremity function for ADL' s. Plan of Care: ADL Retraining, Functional Mobility, Group Exercise/Act as Ind ( education, exercise, functional acitivities, communication, memory, problem solving), UE Funct Exercise/Act, UE Neuromus Re-Ed/Coord, Visual/Perceptual Retrain Treatment Duration: March 15, 2017 Visits Per Week: 10-11 Minutes/Day (M-F): 75-90 Minutes/Day (Sat/Anders): PRN Agreement: Yes Rehab Potential: Fair Time/GCodes Start Time: 08:15 Stop Time: 09:00 Total Time Billed (hr/min): 45 Billed Treatment Time 1 visit-ADL 3 (45 min) HUSSEIN PERDOMO Feb 23, 2017 11:21
--- NOTE | 2017-02-23 11:30 | Occupational Ther Daily Note ---
OT Current Status-Daily Note Subjective Pt alert, sitting in w/c. Pt agreed to therapy. Unable to asses pain due to pt 's expressive aphasia. Mental Status/Objective Functional [place] Measure 0=Not Assessed/NA 4=Minimal Assistance 1=Total Assistance 5=Supervision or Setup 2=Maximal Assistance 6=Modified [place] 3=Moderate Assistance 7=Complete [place] ADL-Treatment Functional [place] Measure 0=Not Assessed/NA 4=Minimal Assistance 1=Total Assistance 5=Supervision or Setup 2=Maximal Assistance 6=Modified [place] 3=Moderate Assistance 7=Complete IndependenceIRFPAI Quality Coding Scale 6 Independent with activity with or without an assistive device 5 Patient requires set up or clean up by helper. Patient completes activity by themselves 4 Supervision or touching assist (CGA). [place] provide cues , steadying assist 3 The helper provides less than half the effort to complete the activity 2 The helper provides more than half the effort to complete the activity 1 Dependent. The helper does all the effort to complete an activity 7 Patient refused to complete or attempt activity 9 The patient did not perform the activity before the current illness or injury 88 Not attempted due to Medical conditions or safety concerns Other Treatment Pt maneuvered w/c out of room with assist to steer away from R side door frame then was able to go 6 ft without assist. Pt then was transported to w/c to therapy gym. With verbal/physical direction pt was able to complete resistive clothes pins with L hand then when resistance increased used B hands to open and place. Initially pt had difficulty with visually seeing and then placing clothespins, after 3 pt was able to complete without difficulty. During visual perceptual activity pt demonstrated visual cut at lower right quadrant. Pt complete fine motor UE tasks for R visual neglect. Pt initially had difficulty finding pegs on far right side, after cues pt was able to consistently find pegs on right side. After therapy, pt sitting in recliner in room with call light/phone in reach. All needs met in room. Safety measures in place. OT Short Term Goals Short Term Goals Time Frame: Mar 01, 2017 Eating(FIM): 5 Grooming(FIM): 5 Bathing(FIM): 4 Upper Body Dressing(FIM): 4 Lower Body Dressing(FIM): 4 Toileting(FIM): 4 Transfers (B,C,W/C) (FIM): 4 Toilet/Commode Transfer(FIM): 4 Shower Transfer(FIM): 4 Additional Short Term Goals: 2-Verbalize Understanding, 3-ImproveStrength/[place] 1=Demonstrate adherence to instructed precautions during ADL tasks. 2=Patient will verbalize/demonstrate understanding of assistive devices/ modifications for ADL. 3=Patient will improve strength/tolerance for activity to enable patient to perform ADL's. OT Fci Goals Fci Goals Time Frame: March 15, 2017 Eating (FIM): 6 Eating (QC): 6 Groomin Oral Hygiene (QC): 6 Bathing(FIM): 5 Shower/Bathe Self (QC): 5 Upper Body Dressing(FIM): 5 Upper Body Dressing (QC): 5 Lower Body Dressing(FIM): 5 Lower Body Dressing (QC): 5 On/Off Footwear (QC): 5 Toileting(FIM): 6 Toileting Hygiene (QC): 6 Toilet/Commode Transfer(FIM): 6 Toilet/Commode Transfer (QC): 6 Shower Transfer(FIM): 6 Comprehension(FIM): 3 Expression (FIM): 2 Social Interaction(FIM): 3 Problem Solving(FIM): 2 Memory(FIM): 2 Additional Goals: 2-Verbalize Understanding, 3-ImproveStrength/[place] 1=Demonstrate adherence to instructed precautions during ADL tasks. 2=Patient will verbalize/demonstrate understanding of assistive devices/ modifications for ADL. 3=Patient will improve strength/tolerance for activity to enable patient to perform ADL's. OT Education/Plan Problem List/Assessment Pt would benefit from skilled OT to increase her independence in basic self care to allow her to return home safely with family and to decrease caregiver burden Discharge Recommendations Plan/Recommendations: Continue POC Treatment Plan/Plan of Care Patient would benefit from OT for education, treatment and training to promote independence in ADL's, mobility, safety and/or upper extremity function for ADL' s. Plan of Care: ADL Retraining, Functional Mobility, Group Exercise/Act as Ind ( education, exercise, functional acitivities, communication, memory, problem solving), UE Funct Exercise/Act, UE Neuromus Re-Ed/Coord, Visual/Perceptual Retrain Treatment Duration: March 15, 2017 Visits Per Week: 10-11 Minutes/Day (M-F): 75-90 Minutes/Day (Sat/Anders): PRN Agreement: Yes Rehab Potential: Fair Time/GCodes Start Time: 09:00 Stop Time: 09:45 Total Time Billed (hr/min): 45 Billed Treatment Time 1 visit-NM 3 (45 min) HUSSEIN PERDOMO Feb 23, 2017 11:30
--- NOTE | 2017-02-23 12:06 | Physical Therapy Daily Note ---
PT Daily Note-Current Subjective Pt sitting in recliner upon arrival. Pt agrees to PT. Pt is trying to communicate more with PT although still struggles. Mental Status Patient Orientation: Person, Place, Situation Transfers Functional [place] Measure 0=Not Assessed/NA 4=Minimal Assistance 1=Total Assistance 5=Supervision or Setup 2=Maximal Assistance 6=Modified [place] 3=Moderate Assistance 7=Complete IndependenceIRFPAI Quality Coding Scale 6 Independent with activity with or without an assistive device 5 Patient requires set up or clean up by helper. Patient completes activity by themselves 4 Supervision or touching assist (CGA). [place] provide cues , steadying assist 3 The helper provides less than half the effort to complete the activity 2 The helper provides more than half the effort to complete the activity 1 Dependent. The helper does all the effort to complete an activity 7 Patient refused to complete or attempt activity 9 The patient did not perform the activity before the current illness or injury 88 Not attempted due to Medical conditions or safety concerns Scootin Sit to/from Stand: 4 Sit to Stand (QC): 4 Weight Bearing Weight Bearing Restriction: Full Weight Bearing Location Restriction: LE Bilateral Gait Training Does the Patient Walk?: Yes Distance (FIM): 8=460-69 ft Distance: 60' Walk 10 feet (QC): 4 Walk 50 ft with 2 Turns(QC): 4 Gait Level of Assist: 4 Gait Persons Needed: 1 Gait Assistive Device: FWW Pt needs VC for hand placement and sequencing but is advancing R foot forward better. Pt fatigues easy and needs rest so followed with [facility]. Wheelchair Training Does the Pt Use a Wheelchair?: Yes Wheelchair Distance: 0=294-88 ft Distance: 50' Wheelchair Level of Assist: 2 Wheel 50 ft with 2 turns (QC): 2 Type of Wheelchair: Manual Exercises Seated Therapy Exercises: Ankle pumps, Long arc quads, Hip flexion, Kicking activity Seated Reps: 15 NuStep Minutes: 10 NuStep Workload: 2 Treatments Pt transferred from recliner using FWW at [facility]-Min A. Pt ambulated using FWW at [facility]. Pt transferred back to [facility] after fatiguing and tried to propell [facility] w/LUE although needed assistance. Pt transferred to [facility] and used for activity tolerance and strengthening. Pt then transferred to [facility] for Seated EX. Pt then was fatigued and returned to room to rest. Pt transferred back to recliner from [facility] at [facility]. Pt is left with all needs met at end of tx. Assessment Current Status: Good Progress Pt is improving with safety, activity tolerance and balance during transfers and ambulation. PT Short Term Goals Short Term Goals Time Frame: Mar 01, 2017 Transfers (B,C,W/C) (FIM): 4 Gait (FIM): 4 Distance (FIM): 3=150 ft Gait Assistive Device: FWW Wheelchair Distance: 50' Stairs (FIM): 2 # of Steps: 4 PT Manager Configuration Goals Manager Configuration Goals PT Manager Configuration Goals Time Frame: March 15, 2017 Transfers (B,C,W/C) (FIM): 6 Sit to Lying (QC): 6 Lying-Sitting on Side/Bed(QC): 6 Sit to Stand (QC): 6 Rollin Roll Left to Right (QC): 6 Chair/Nrd-hm-Ntkzg Xfer(QC): 6 Car Transfer (QC): 5 Does the Patient Walk: Yes Gait (FIM): 6 Gait distance (FIM): 3=150 ft Walk 10 feet (QC): 6 Walk 10ft-Uneven Surface(QC): 6 Walk 50ft with 2 Turns (QC): 6 Walk 150 ft (QC): 6 Gait Level of Assist: 6 Gait Assistive Device: FWW Does the Pt use WC or Scooter?: No Stairs (FIM): 5 # of Steps: 8 1 Step (curb) (QC): 6 4 Steps (QC): 5 12 Steps (QC): 9 Stairs Level Of Assist: 6 Picking up an Object (QC): 4 PT Plan Problem List Problem List: Activity Tolerance, Functional Strength, Safety, Balance, Gait, Transfer, Bed Mobility Treatment/Plan Treatment Plan: Continue Plan of Care Treatment Plan: Bed Mobility, Education, Functional Activity [place], Functional Strength, Group Therapy, Gait, Safety, Therapeutic Exercise, Transfers Treatment Duration: March 15, 2017 Visits Per Week: 10-15 Minutes/Day (M-F): 60-90 Minutes/Day (Sat/Anders): prn Safety Risks/Education Patient Education: Gait Training, Transfer Techniques, Correct Positioning, Safety Issues Teaching Recipient: Patient Teaching Methods: Discussion Response to Teaching: Verbalize Understanding Time/GCodes Time In: 1015 Time Out: 1100 Total Billed Treatment Time: 45 Total Billed Treatment visit, GT (15m) & EX X2 (30m) JESSICA VIRGEN FUR MIXER Feb 23, 2017 12:06
--- NOTE | 2017-02-23 15:01 | Physical Therapy Daily Note ---
PT Daily Note-Current Subjective Pt sitting in recliner visiting with upon arrival. Pt agreed to PT. Mental Status Patient Orientation: Person, Place, Situation Transfers Functional [place] Measure 0=Not Assessed/NA 4=Minimal Assistance 1=Total Assistance 5=Supervision or Setup 2=Maximal Assistance 6=Modified [place] 3=Moderate Assistance 7=Complete IndependenceIRFPAI Quality Coding Scale 6 Independent with activity with or without an assistive device 5 Patient requires set up or clean up by helper. Patient completes activity by themselves 4 Supervision or touching assist (CGA). [place] provide cues , steadying assist 3 The helper provides less than half the effort to complete the activity 2 The helper provides more than half the effort to complete the activity 1 Dependent. The helper does all the effort to complete an activity 7 Patient refused to complete or attempt activity 9 The patient did not perform the activity before the current illness or injury 88 Not attempted due to Medical conditions or safety concerns Scootin Sit to/from Stand: 4 Sit to Stand (QC): 4 Weight Bearing Weight Bearing Restriction: Full Weight Bearing Location Restriction: LE Bilateral Gait Training Does the Patient Walk?: Yes Distance (FIM): 8=761-77 ft Distance: 50' Walk 10 feet (QC): 4 Walk 50 ft with 2 Turns(QC): 4 Gait Level of Assist: 4 Gait Persons Needed: 1 Gait Assistive Device: FWW Pt is fatigued and doesn't walk as far as thsi morning. Pt walks with slow but steady gait, no LOB. Wheelchair Training Does the Pt Use a Wheelchair?: Yes Wheelchair Distance: 1=up to 49 ft Distance: 40' Wheelchair Level of Assist: 2 Type of Wheelchair: Manual Pt propels [facility] using LUE but cannot assist with RUE or LE. Pt fatigues easy. Exercises Seated Therapy Exercises: Ankle pumps, Long arc quads, Hip flexion, Kicking activity, Hip abd/add Seated Reps: 20 Treatments Pt transferred from recliner to standing using FWW at [facility]-Min A. Pt ambulates toward Therapy Gym using FWW at [facility]. Pt returns to [facility] after fatiguing. Pt propels [facility] until tired then PT assists. Pt completes Seated EX in [facility] in Therapy Gym before returning to room to rest. Pt transferred back to recliner to rest at end of tx with all needs met. Assessment Current Status: Fair Progress Pt is fatigued from this morning. Pt not able to complete tx as well as this morning. PT Short Term Goals Short Term Goals Time Frame: Mar 01, 2017 Transfers (B,C,W/C) (FIM): 4 Gait (FIM): 4 Distance (FIM): 3=150 ft Gait Assistive Device: FWW Wheelchair Distance: 50' Stairs (FIM): 2 # of Steps: 4 PT Lead Teacher Goals Lead Teacher Goals PT Retirement Goals Time Frame: March 15, 2017 Transfers (B,C,W/C) (FIM): 6 Sit to Lying (QC): 6 Lying-Sitting on Side/Bed(QC): 6 Sit to Stand (QC): 6 Rollin Roll Left to Right (QC): 6 Chair/Hjx-dx-Tvppl Xfer(QC): 6 Car Transfer (QC): 5 Does the Patient Walk: Yes Gait (FIM): 6 Gait distance (FIM): 3=150 ft Walk 10 feet (QC): 6 Walk 10ft-Uneven Surface(QC): 6 Walk 50ft with 2 Turns (QC): 6 Walk 150 ft (QC): 6 Gait Level of Assist: 6 Gait Assistive Device: FWW Does the Pt use WC or Scooter?: No Stairs (FIM): 5 # of Steps: 8 1 Step (curb) (QC): 6 4 Steps (QC): 5 12 Steps (QC): 9 Stairs Level Of Assist: 6 Picking up an Object (QC): 4 PT Plan Problem List Problem List: Activity Tolerance, Functional Strength, Safety, Balance, Gait, Transfer, Bed Mobility Treatment/Plan Treatment Plan: Continue Plan of Care Treatment Plan: Bed Mobility, Education, Functional Activity [place], Functional Strength, Group Therapy, Gait, Safety, Therapeutic Exercise, Transfers Treatment Duration: March 15, 2017 Visits Per Week: 10-15 Minutes/Day (M-F): 60-90 Minutes/Day (Sat/Anders): prn Safety Risks/Education Patient Education: Gait Training, Transfer Techniques, Correct Positioning, W/ C Management, Safety Issues Teaching Recipient: Patient Teaching Methods: Discussion Response to Teaching: Verbalize Understanding Time/GCodes Time In: 1300 Time Out: 1330 Total Billed Treatment Time: 30 Total Billed Treatment visit, RUPINDER (15m) & IKE (15m) JESSICA VIRGEN PTA Feb 23, 2017 15:01
--- NOTE | 2017-02-23 15:04 | Speech Therapy Daily Note ---
Speech Daily Progress Note Subjective The patient was seated upright in recliner upon entrance. The patient greeted the clinician with, "hi." At the close of the session, the patient stated, "kaity engle." The patient's eye gaze minimally crosses midline, demonstrating significant right sided neglect. Objective Object Identification: The patient was unable to identify a common object in isolation, a field of two by pointing, verbalizations, or eye gaze, or when the clinician provided the function. The patient was able to demonstrate the object' s use when placed in her hand by the clinician (hair brush, cup). Phoneme Repetition: The patient made one attempts at phoneme repetition with own name. Patient was able to state, "mar," however, did not make any additional attempts following the first. Orientation: The patient accurately identified the month with a yes/no head nod. The patient was unable to identify the year. Treatment Plan Continue Plan of Care Communication Comprehension: 2 Expression: 1 Social Cognition Social Interaction: 1 Problem Solvin Memory: 1 Speech Short Term Goals Short Term Goals Short Term Goals 1. The patient will demonstrate swallowing strategies with 80% accuracy and mild clinician verbal cueing. 2. The patient will demonstrate dysphagia strengthening exercises with 80% accuracy and mild clinician verbal cueing. 3. The patient will repeat single, bilabial phonemes with 80% accuracy and maximum clinician verbal cueing. 4. The patient will identify common objects in a field of two. 5. The patient will display 80% accuracy with simple yes/no questions through pointing, head nods, or verbalizations. PROGRESSING 02/18/17 Time Frame-STG: Four Weeks Speech Cnc Programmer Goals Cnc Programmer Goals 1. The patient will tolerate the least restrictive diet without signs/symptoms of aspiration or laryngeal penetration. 2. The patient will demonstrate improved expressive and receptive language for increased function and safety with ADL's in the least restrictive setting. Time Frame: Four Weeks Comprehension: 3 Expression: 2 Social Interaction: 3 Problem Solvin Memory: 2 Speech-Plan Treatment Plan Speech Therapy Treatment Plan: Continue Plan of Care Continue skilled speech pathology intervention to target expressive communication. Treatment Duration: March 15, 2017 # of days/week Five Visits Per Week: Five Minutes/Day (M-F): 30 Rehab Potential: Fair Safety Risks/Education Teaching Recipient: Patient Teaching Methods: Demonstration, Discussion Response to Teaching: Unable to Return Demonstration, Reinforcement Needed Education Topics Provided: Orientation Strategies (external aide) Time Speech Therapy Time In: 09:45 Speech Therapy Time Out: 10:15 Total Billed Time: 30 Billed Treatment Time 1, MATTHIEU BRAVO Feb 23, 2017 15:04
[2017-02-23 15:46] VITALS: BP 101/58
[2017-02-23 18:16] VITALS: BP 101/58
[2017-02-23] MEDS: SIMvastatin 40 MG (ZOCOR) TAB PO SCH (20:32)
[2017-02-23] MEDS: LATANOPROST 0.005% (XALATAN) OPHTH SOLN 2.5 ML OD SCH (20:36)
--- NOTE | 2017-02-23 21:28 | PM & R (SOAP) Progress Note ---
Subjective Subjective/Events-last exam Patient was seen in her room this evening Patient min assist for transfers Patient still with significant aphasia Objective Exam Last Set of Vital Signs Vital Signs Date Time Temp Pulse Resp B/P (MAP) Pulse Ox O2 Delivery O2 Flow Rate FiO2 02/23/17 18:16 98.7 56 16 101/58 97 Room Air Capillary Refill : I&O Intake and Output 02/23/17 00:00 Intake Total 1000 ml Balance 1000 ml Intake Oral 1000 ml # Voids 2 # Urine Diapers 5 General: Alert, Cooperative, No Acute Distress HEENT: Atraumatic, PERRLA, EOMI, Mucous Memb Moist/[place], Other (aphasic) Neck: Supple, No JVD Lungs: Clear to Auscultation Heart: Regular Rate Abdomen: Normal Bowel Sounds, Soft, No Tenderness Extremities: No Edema Neuro: Other (rt HP and aphasia) Assessment/Plan Assessment 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
[2017-02-24 05:00] VITALS: BP 153/76
[2017-02-24] MEDS: LEVOTHYROXINE 75 MCG (LEVOTHROID) TABLET PO SCH (06:33)
[2017-02-24] MEDS: FOLIC ACID 1 MG TAB PO SCH ×2 (07:59→20:26)
[2017-02-24] MEDS: APIXABAN 5 MG (ELIQUIS) TABLET PO SCH ×2 (07:59→20:26)
[2017-02-24] MEDS: lisINopril 10 MG (PRINIVIL) TAB PO SCH (07:59)
[2017-02-24] MEDS: PANTOPRAZOLE 20 MG TABLET (PROTONIX) PO SCH ×2 (07:59→20:26)
[2017-02-24] MEDS: ATENOLOL 25 MG (TENORMIN) TAB PO SCH (07:59)
[2017-02-24] MEDS: DIGOXIN 0.125 MG (LANOXIN) TAB PO SCH (07:59)
[2017-02-24] MEDS: GABAPENTIN 300 MG (NEURONTIN) CAP PO SCH ×2 (07:59→20:26)
[2017-02-24] MEDS: BRIMONIDINE 0.2% (ALPHAGAN) OPHTH SOLN 5 ML BTL OU SCH ×3 (08:02→20:29)
[2017-02-24] MEDS: prednisoLONE 1% OPTH (PRED FORTE) 5 ML BTL OD SCH ×4 (08:03→20:28)
[2017-02-24] MEDS: TIMOLOL MALEATE 0.5% 5 ML (TIMOPTIC) BTL OU SCH ×2 (08:03→20:25)
[2017-02-24] MEDS: CYCLOPENTOLATE 1% (CYCLOGYL) 2 ML DROPS OD SCH (08:03)
--- NOTE | 2017-02-24 09:20 | Occupational Ther Daily Note ---
OT Current Status-Daily Note Subjective Pt alert, lying in bed. Nrsg student present in room. Pt had not received breakfast yet, nrsg went to check on delay. Pt is on autotray for 7 am. Pt very upset that routine was changed. Mental Status/Objective Patient Orientation: Person, Non-Verbal/Aphasic Functional [place] Measure 0=Not Assessed/NA 4=Minimal Assistance 1=Total Assistance 5=Supervision or Setup 2=Maximal Assistance 6=Modified [place] 3=Moderate Assistance 7=Complete [place] ADL-Treatment Pt is thrown off by change of routine. Pt declined taking shower today. Pt did agree to take sponge bath. Pt was able to go from supine to sitting EOB with HOB slightly elevated by self. Pt needing increased cues this am to initiate task. Pt ambulated to bathroom with CGA and transferred to toilet using FWW, grabbar and BSC with CGA. Pt was incontinent in briefs then was able to void in toilet. Pt required cues for initiation of pulling down briefs then was able to complete by self. After set up, pt was able to wash upper/ lower body sitting with SBA then CGA in standing while pt was able to cleanse jose rafael area/buttocks by self. After set up, pt able to don shirt then min A to don pants/briefs. Pt is able to doff socks by self then total assist to don socks. Pt ambulated to sink with SBA using FWW then brushed hair. Pt declined oral care at this time due to waiting to eat breakfast. Pt ambulated to room and sat in recliner with SBA. Breakfast came and pt was able to set self up with opening lids off cups. Pt required gestural cues to find utensils on R lower side of tray. Pt declined using utensils and only ate sausage and drank drinks. After therapy, pt sitting in recliner with call light/phone in reach. All needs met in room. Functional [place] Measure 0=Not Assessed/NA 4=Minimal Assistance 1=Total Assistance 5=Supervision or Setup 2=Maximal Assistance 6=Modified [place] 3=Moderate Assistance 7=Complete IndependenceIRFPAI Quality Coding Scale 6 Independent with activity with or without an assistive device 5 Patient requires set up or clean up by helper. Patient completes activity by themselves 4 Supervision or touching assist (CGA). [place] provide cues , steadying assist 3 The helper provides less than half the effort to complete the activity 2 The helper provides more than half the effort to complete the activity 1 Dependent. The helper does all the effort to complete an activity 7 Patient refused to complete or attempt activity 9 The patient did not perform the activity before the current illness or injury 88 Not attempted due to Medical conditions or safety concerns Eating (FIM): 5 Eating (QC): 4 Grooming (FIM): 5 Bathing (FIM): 4 Shower/Bathe Self (QC): 4 Upper Body (FIM): 5 Upper Body Dressing (QC): 5 Lower Body Dressing (FIM): 3 Lower Body Dressing (QC): 3 On/Off Footwear (QC): 2 Toileting (FIM): 4 Transfers (B, C, W/C) (FIM): 4 Toilet/Commode Transfer (FIM): 4 OT Short Term Goals Short Term Goals Time Frame: Mar 01, 2017 Eating(FIM): 5 Grooming(FIM): 5 Bathing(FIM): 4 Upper Body Dressing(FIM): 4 Lower Body Dressing(FIM): 4 Toileting(FIM): 4 Transfers (B,C,W/C) (FIM): 4 Toilet/Commode Transfer(FIM): 4 Shower Transfer(FIM): 4 Additional Short Term Goals: 2-Verbalize Understanding, 3-ImproveStrength/[place] 1=Demonstrate adherence to instructed precautions during ADL tasks. 2=Patient will verbalize/demonstrate understanding of assistive devices/ modifications for ADL. 3=Patient will improve strength/tolerance for activity to enable patient to perform ADL's. OT Senior Care Goals [facility] [employer] [facility] Goals Time Frame: March 15, 2017 Eating (FIM): 6 Eating (QC): 6 Groomin Oral Hygiene (QC): 6 Bathing(FIM): 5 Shower/Bathe Self (QC): 5 Upper Body Dressing(FIM): 5 Upper Body Dressing (QC): 5 Lower Body Dressing(FIM): 5 Lower Body Dressing (QC): 5 On/Off Footwear (QC): 5 Toileting(FIM): 6 Toileting Hygiene (QC): 6 Toilet/Commode Transfer(FIM): 6 Toilet/Commode Transfer (QC): 6 Shower Transfer(FIM): 6 Comprehension(FIM): 3 Expression (FIM): 2 Social Interaction(FIM): 3 Problem Solving(FIM): 2 Memory(FIM): 2 Additional Goals: 2-Verbalize Understanding, 3-ImproveStrength/[place] 1=Demonstrate adherence to instructed precautions during ADL tasks. 2=Patient will verbalize/demonstrate understanding of assistive devices/ modifications for ADL. 3=Patient will improve strength/tolerance for activity to enable patient to perform ADL's. OT Education/Plan Problem List/Assessment Pt would benefit from skilled OT to increase her independence in basic self care to allow her to return home safely with family and to decrease caregiver burden Discharge Recommendations Plan/Recommendations: Continue POC Treatment Plan/Plan of Care Patient would benefit from OT for education, treatment and training to promote independence in ADL's, mobility, safety and/or upper extremity function for ADL' s. Plan of Care: ADL Retraining, Functional Mobility, Group Exercise/Act as Ind ( education, exercise, functional acitivities, communication, memory, problem solving), UE Funct Exercise/Act, UE Neuromus Re-Ed/Coord, Visual/Perceptual Retrain Treatment Duration: March 15, 2017 Visits Per Week: 10-11 Minutes/Day (M-F): 75-90 Minutes/Day (Sat/Anders): PRN Agreement: Yes Rehab Potential: Fair Time/GCodes Start Time: 08:00 Stop Time: 09:00 Total Time Billed (hr/min): 60 Billed Treatment Time 1 visit-ADL 4 (60 min) HUSSEIN PERDOMO Feb 24, 2017 09:20
--- NOTE | 2017-02-24 11:25 | PM & R (SOAP) Progress Note ---
Subjective Subjective/Events-last exam Patient was seen in her room this AM Patient min assist for transfers Objective Exam Last Set of Vital Signs Vital Signs Date Time Temp Pulse Resp B/P (MAP) Pulse Ox O2 Delivery O2 Flow Rate FiO2 02/24/17 09:00 Room Air 02/24/17 05:00 99.1 58 18 153/76 98 Capillary Refill : I&O Intake and Output 02/24/17 00:00 Intake Total 1120 ml Balance 1120 ml Intake Oral 1120 ml # Voids 5 # Bowel Movements 1 General: Alert, Cooperative, No Acute Distress HEENT: Atraumatic, PERRLA, EOMI, Mucous Memb Moist/[place], Other (aphasic) Neck: Supple, No JVD Lungs: Clear to Auscultation Heart: Regular Rate Abdomen: Normal Bowel Sounds, Soft, No Tenderness Extremities: No Edema Neuro: Other (rt HP and aphasia) Assessment/Plan Assessment 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
--- NOTE | 2017-02-24 11:50 | Speech Therapy Daily Note ---
Speech Daily Progress Note Subjective The patient was seated upright in chair upon entrance. The patient greeted the clinician verbally, "hi" and waved with left hand. Additionally, the patient made eye contact with the clinician and followed her via gaze around the room prior to the onset of the session. Objective Dysphagia Strengthening Exercises: The clinician attempted to initiate dysphagia exercises on this date with limited accuracy due to moderate to severe receptive aphasia. The patient was able to perform lingual protrusion ( intermittently) with maximum clinician prompting and direct modeling. The patient was unable to elicit a cued swallow for the effortful swallow or Linda manuever. Orientation Questions via Yes/No Questions: The white board was used in attempts to increase orientation information. The patient was unable to accurately identify month, year, or date with yes/no head nods (higher accuracy previously). The patient accurately identified her name with a yes head response but did not attempt to model phonemic cues. Confrontational Naming: The patient was unable to identify an object (included in ADL's- brush, toothbrush) in isolation, in a field of two, with phonemic cues , or functional use. The patient was handed the brush and she attempted to use the brush on her teeth. With verbal cues and a direct model, the patient moved the brush upwards to her hair. To note: The patient attempted verbalizations several times throughout the session, however, was unable to communicate clearly during any attempt. The patient stated, "thank you," upon exit. Assessment Assessment Current Status: Fair Progress Treatment Plan Continue Plan of Care Communication Comprehension: 2 Expression: 1 Social Cognition Social Interaction: 1 Problem Solvin Memory: 1 Speech Short Term Goals Short Term Goals Short Term Goals 1. The patient will demonstrate swallowing strategies with 80% accuracy and mild clinician verbal cueing. INITIATED 2. The patient will demonstrate dysphagia strengthening exercises with 80% accuracy and mild clinician verbal cueing. INITIATED (02/24/17) 3. The patient will repeat single, bilabial phonemes with 80% accuracy and maximum clinician verbal cueing. NOT PROGRESSING 4. The patient will identify common objects in a field of two. NOT PROGRESSING 5. The patient will display 80% accuracy with simple yes/no questions through pointing, head nods, or verbalizations. PROGRESSING (02/18/17) Time Frame-STG: Four Weeks Speech Correction Goals Correction Goals 1. The patient will tolerate the least restrictive diet without signs/symptoms of aspiration or laryngeal penetration. 2. The patient will demonstrate improved expressive and receptive language for increased function and safety with ADL's in the least restrictive setting. Time Frame: Four Weeks Comprehension: 3 Expression: 2 Social Interaction: 3 Problem Solvin Memory: 2 Speech-Plan Treatment Plan Speech Therapy Treatment Plan: Continue Plan of Care Continue skilled speech pathology to target improved expressive communication and cognitive linguistic skills. Treatment Duration: March 15, 2017 # of days/week Five. Visits Per Week: Five Minutes/Day (M-F): 30 Rehab Potential: Fair Safety Risks/Education Education Topics Provided: Dysphagia Exercises, Orientation Strategies Time Speech Therapy Time In: 10:00 Speech Therapy Time Out: 10:30 Total Billed Time: 30 Billed Treatment Time 1, RHETT 1, MATTHIEU MELENDEZ Feb 24, 2017 11:50
--- NOTE | 2017-02-24 12:21 | Physical Therapy Daily Note ---
PT Daily Note-Current Subjective Pt sitting in recliner upon arrival. Pt agrees to PT. Pain Location: No Pain Reported Mental Status Patient Orientation: Person, Place, Situation Transfers Functional [place] Measure 0=Not Assessed/NA 4=Minimal Assistance 1=Total Assistance 5=Supervision or Setup 2=Maximal Assistance 6=Modified [place] 3=Moderate Assistance 7=Complete IndependenceIRFPAI Quality Coding Scale 6 Independent with activity with or without an assistive device 5 Patient requires set up or clean up by helper. Patient completes activity by themselves 4 Supervision or touching assist ([facility]). [place] provide cues , steadying assist 3 The helper provides less than half the effort to complete the activity 2 The helper provides more than half the effort to complete the activity 1 Dependent. The helper does all the effort to complete an activity 7 Patient refused to complete or attempt activity 9 The patient did not perform the activity before the current illness or injury 88 Not attempted due to Medical conditions or safety concerns Scootin Sit to/from Stand: 4 Sit to Stand (QC): 4 Chair/Cas-bs-Govxh Xfer(QC): 4 Weight Bearing Weight Bearing Restriction: Full Weight Bearing Location Restriction: LE Bilateral Gait Training Does the Patient Walk?: Yes Distance (FIM): 4=810-13 ft Distance: 50' Walk 10 feet (QC): 4 Walk 50 ft with 2 Turns(QC): 4 Gait Level of Assist: 4 Gait Persons Needed: 1 Gait Assistive Device: FWW Pt walks with slow shahzad but is steady, no LOB. Pt fatigues quickly so [facility] is brought behind pt for rest. Wheelchair Training Does the Pt Use a Wheelchair?: Yes Wheelchair Distance: 7=157-58 ft Distance: 50' Wheelchair Level of Assist: 3 Wheel 50 ft with 2 turns (QC): 3 Type of Wheelchair: Manual Exercises Seated Therapy Exercises: Ankle pumps, Long arc quads, Hip flexion, Kicking activity Seated Reps: 15 NuStep Minutes: 9 NuStep Workload: 1 Treatments Pt transfers from recliner using FWW at [facility]. Pt ambulates short distance using FWW at [facility]. Pt uses restroom before leaving room for tx. Pt tires and transfers to [facility]. Pt propels [facility] short distance before fatiguing and PT assists to Therapy Gym. Pt completes time on NuStep then completes Seated Ex in [facility] for both activity tolerance and strengthening. Pt returns to room to rest in recliner. Pt is left in recliner with all needs met at end of tx. Assessment Current Status: Good Progress Pt is improving with independence with transfers and mobility. PT Short Term Goals Short Term Goals Time Frame: Mar 01, 2017 Transfers (B,C,W/C) (FIM): 4 Gait (FIM): 4 Distance (FIM): 3=150 ft Gait Assistive Device: FWW Wheelchair Distance: 40' Stairs (FIM): 2 # of Steps: 4 PT Supervisor Opening And Picking Goals Supervisor Opening And Picking Goals PT Detention Goals Time Frame: March 15, 2017 Transfers (B,C,W/C) (FIM): 6 Sit to Lying (QC): 6 Lying-Sitting on Side/Bed(QC): 6 Sit to Stand (QC): 6 Rollin Roll Left to Right (QC): 6 Chair/Xed-xy-Yegxr Xfer(QC): 6 Car Transfer (QC): 5 Does the Patient Walk: Yes Gait (FIM): 6 Gait distance (FIM): 3=150 ft Walk 10 feet (QC): 6 Walk 10ft-Uneven Surface(QC): 6 Walk 50ft with 2 Turns (QC): 6 Walk 150 ft (QC): 6 Gait Level of Assist: 6 Gait Assistive Device: FWW Does the Pt use WC or Scooter?: No Stairs (FIM): 5 # of Steps: 8 1 Step (curb) (QC): 6 4 Steps (QC): 5 12 Steps (QC): 9 Stairs Level Of Assist: 6 Picking up an Object (QC): 4 PT Plan Problem List Problem List: Activity Tolerance, Functional Strength, Safety, Balance, Gait, Transfer Treatment/Plan Treatment Plan: Continue Plan of Care Treatment Plan: Bed Mobility, Education, Functional Activity [place], Functional Strength, Group Therapy, Gait, Safety, Therapeutic Exercise, Transfers Treatment Duration: March 15, 2017 Visits Per Week: 10-15 Minutes/Day (M-F): 60-90 Minutes/Day (Sat/Anders): prn Safety Risks/Education Patient Education: Gait Training, Transfer Techniques, Correct Positioning, Safety Issues Teaching Recipient: Patient Teaching Methods: Discussion Response to Teaching: Reinforcement Needed Time/GCodes Time In: 915 Time Out: 1000 Total Billed Treatment Time: 45 Total Billed Treatment visit, FA (15m), EX (20m) & WC (10m) JESSICA VIRGEN TRIM SETTER Feb 24, 2017 12:21
--- NOTE | 2017-02-24 14:36 | Therapy Group Daily Note ---
Therapy Daily Group Note Patient Education Topic Other List Below Other/Notes Pt was an active participant in PT/OT group. Her introduced her for socialization by sharing how she came to [place] (she was born here[place] She attended to discussion/education on transfer modes and techniques but was not able to contribute vocally due to aphasia. She also listened to education on the rehab process and her shared "Words of [place]" for others. She did chair pushups to help strengthen arms for transfers after watching others and with min assist and was taken back to her room, transferred min assist with FWW to recliner and was left up with all needs met. Start Time: 13:00 Stop Time: 14:15 Total Billed Treatment Time: 75 Total Billed Treatment visit, 75 minutes group STEVEN JONES OT Feb 24, 2017 14:36
[2017-02-24 17:00] VITALS: BP 147/82
[2017-02-24] MEDS: SIMvastatin 40 MG (ZOCOR) TAB PO SCH (20:26)
[2017-02-24] MEDS: LATANOPROST 0.005% (XALATAN) OPHTH SOLN 2.5 ML OD SCH (20:29)
[2017-02-25] MEDS: LEVOTHYROXINE 75 MCG (LEVOTHROID) TABLET PO SCH (05:37)
[2017-02-25 05:55] VITALS: BP 113/61
[2017-02-25] MEDS: GABAPENTIN 300 MG (NEURONTIN) CAP PO SCH ×2 (08:49→20:00)
[2017-02-25] MEDS: DIGOXIN 0.125 MG (LANOXIN) TAB PO SCH (08:49)
[2017-02-25] MEDS: lisINopril 10 MG (PRINIVIL) TAB PO SCH (08:49)
[2017-02-25] MEDS: FOLIC ACID 1 MG TAB PO SCH ×2 (08:50→20:00)
[2017-02-25] MEDS: ATENOLOL 25 MG (TENORMIN) TAB PO SCH (08:50)
[2017-02-25] MEDS: APIXABAN 5 MG (ELIQUIS) TABLET PO SCH ×2 (08:50→20:00)
[2017-02-25] MEDS: PANTOPRAZOLE 20 MG TABLET (PROTONIX) PO SCH ×2 (08:50→20:00)
[2017-02-25] MEDS: BRIMONIDINE 0.2% (ALPHAGAN) OPHTH SOLN 5 ML BTL OU SCH ×3 (08:52→20:01)
[2017-02-25] MEDS: prednisoLONE 1% OPTH (PRED FORTE) 5 ML BTL OD SCH ×4 (08:52→20:01)
[2017-02-25] MEDS: TIMOLOL MALEATE 0.5% 5 ML (TIMOPTIC) BTL OU SCH ×2 (08:52→20:01)
[2017-02-25] MEDS: CYCLOPENTOLATE 1% (CYCLOGYL) 2 ML DROPS OD SCH (08:53)
--- NOTE | 2017-02-25 09:56 | Speech Therapy Daily Note ---
Speech Daily Progress Note Subjective The patient was seated upright in chair upon entrance. The patient greeted the clinician with a left hand wave and was agreeable to speech pathology treatment via "yes" head nod. The patient did not respond to the clinician's questions regarding pain/pain level. Objective PO Bolus Trials: The patient was re-evaluated with liquid consistencies on this date. The patient demonstrated a delayed throat clear following one of four ice chip trials. No signs/symptoms of aspiration were demonstrated with teaspoon trials of thin liquid or cup sips. An immediate cough was demonstrated following one of one straw trials of thin liquid. No signs/symptoms of aspiration were demonstrated with any trials of nectar-thick liquid consistencies via teaspoon or cup sip. The patient should continue to receive nectar-thickened liquids and eliminate straw administration. Orientation Information: The patient provided inaccurate yes/no head nod responses to orientation questions with the use of the in-room white board. Repetition: Following maximum verbal cueing, direct modeling, and multiple attempts, the patient repeated her first name for the clinician. The patient did not attempt to repeat last name. At the close of the session, the patient was able to state name without model. Patient attempted to scan paper in reading motion. Due to this, the clinician attempted to have patient locate menu items on a sheet of paper. The patient was unable to read single words or identify single words in a field of two. Increased verbalizations were demonstrated on this date, however, not appropriate for the subject or questions being discussed. Assessment Assessment Current Status: Fair Progress Treatment Plan Continue Plan of Care Communication Comprehension: 2 Expression: 1 Social Cognition Social Interaction: 1 Problem Solvin Memory: 1 Speech Short Term Goals Short Term Goals Short Term Goals 1. The patient will demonstrate swallowing strategies with 80% accuracy and mild clinician verbal cueing. INITIATED 2. The patient will demonstrate dysphagia strengthening exercises with 80% accuracy and mild clinician verbal cueing. INITIATED (02/24/17) 3. The patient will repeat single, bilabial phonemes with 80% accuracy and maximum clinician verbal cueing. NOT PROGRESSING 4. The patient will identify common objects in a field of two. NOT PROGRESSING 5. The patient will display 80% accuracy with simple yes/no questions through pointing, head nods, or verbalizations. PROGRESSING (02/18/17) Time Frame-STG: Four Weeks Speech Mcc Goals Mcc Goals 1. The patient will tolerate the least restrictive diet without signs/symptoms of aspiration or laryngeal penetration. 2. The patient will demonstrate improved expressive and receptive language for increased function and safety with ADL's in the least restrictive setting. Time Frame: Four Weeks Comprehension: 3 Expression: 2 Social Interaction: 3 Problem Solvin Memory: 2 Speech-Plan Treatment Plan Speech Therapy Treatment Plan: Continue Plan of Care Continue skilled speech pathology intervention to target improved functional communication and swallowing safety. Treatment Duration: March 15, 2017 # of days/week Five. Visits Per Week: Five Minutes/Day (M-F): 30 Rehab Potential: Fair Safety Risks/Education Teaching Recipient: Patient Teaching Methods: Demonstration Response to Teaching: Unable to Return Demonstration, Unable to Comprehend, Reinforcement Needed Education Topics Provided: External Orientation Aid, Yes/No Responses Time Speech Therapy Time In: 09:15 Speech Therapy Time Out: 09:45 Total Billed Time: 30 Billed Treatment Time 1, DYST 1, MATTHIEU BRAVO Feb 25, 2017 09:56
--- NOTE | 2017-02-25 10:30 | Occupational Ther Daily Note ---
OT Current Status-Daily Note Subjective Pt alert, finishing breakfast sitting in recliner. Pt agreed to therapy. Due to expressive aphasia unable to assess pain. Mental Status/Objective Patient Orientation: Person, Place, Non-Verbal/Aphasic, Time, Situation Functional [place] Measure 0=Not Assessed/NA 4=Minimal Assistance 1=Total Assistance 5=Supervision or Setup 2=Maximal Assistance 6=Modified [place] 3=Moderate Assistance 7=Complete [place] ADL-Treatment Functional [place] Measure 0=Not Assessed/NA 4=Minimal Assistance 1=Total Assistance 5=Supervision or Setup 2=Maximal Assistance 6=Modified [place] 3=Moderate Assistance 7=Complete IndependenceIRFPAI Quality Coding Scale 6 Independent with activity with or without an assistive device 5 Patient requires set up or clean up by helper. Patient completes activity by themselves 4 Supervision or touching assist (CGA). [place] provide cues , steadying assist 3 The helper provides less than half the effort to complete the activity 2 The helper provides more than half the effort to complete the activity 1 Dependent. The helper does all the effort to complete an activity 7 Patient refused to complete or attempt activity 9 The patient did not perform the activity before the current illness or injury 88 Not attempted due to Medical conditions or safety concerns Eating (FIM): 5 (Pt requires set up for eating. Pt is able to use regular utensils to eat with. Lower right quadrant visual neglect.) Eating (QC): 5 Grooming (FIM): 5 (Pt is able to manipulate tools for grooming though requires set up and cues for appropriate use.) Oral Hygiene (QC): 5 Bathing (FIM): 5 (After set up, pt is able to complete bathing using shower bench, hand held shower and grabbars. At times pt requires verbal cues to initiate then SBA when pt is standing to cleanse buttocks/jose rafael area.) Bathing Location: L Arm, R Arm, L Upper Leg, R Upper Leg, L Lower Leg ( including foot), R Lower Leg (including foot), Chest, Abdomen, Buttocks, Perineal Area Shower/Bathe Self (QC): 4 Upper Body (FIM): 5 (After set up, pt is able to don/doff upper body dressing.) Upper Body Dressing (QC): 5 Lower Body Dressing (FIM): 3 (Pt is able to doff pants/socks with physical cue to pull down then completes on own. Donning pants, pt starts with L LE due to routine/habit, mod A. When directed to use R LE first pt is min A with donning pants/briefs. Dependent at this time donning socks. SBA when standing to hike pants over hips.) Lower Body Dressing (QC): 3 On/Off Footwear (QC): 3 Toileting (FIM): 4 (Pt is incontinent with bowel/bladder. Pt is on a bowel and bladder program for routine. Pt has demonstrated ability to manipulate clothing and complete hygiene with CGA with dynamic standing to cleanse self.) Transfers (B, C, W/C) (FIM): 4 (CGA to SBA for transfers) Toilet/Commode Transfer (FIM): 5 (Using FWW and grabbars, pt is able to complete transfers with SBA.) Shower Transfer(FIM): 4 (Using shower bench, grabbar and FWW pt is able to complete transfer with verbal and physical cues.) OT Short Term Goals Short Term Goals Time Frame: Mar 01, 2017 Eating(FIM): 5 Grooming(FIM): 5 Bathing(FIM): 4 Upper Body Dressing(FIM): 4 Lower Body Dressing(FIM): 4 Toileting(FIM): 4 Transfers (B,C,W/C) (FIM): 4 Toilet/Commode Transfer(FIM): 4 Shower Transfer(FIM): 4 Additional Short Term Goals: 2-Verbalize Understanding, 3-ImproveStrength/[place] 1=Demonstrate adherence to instructed precautions during ADL tasks. 2=Patient will verbalize/demonstrate understanding of assistive devices/ modifications for ADL. 3=Patient will improve strength/tolerance for activity to enable patient to perform ADL's. OT Assisted Goals Assisted Goals Time Frame: March 15, 2017 Eating (FIM): 6 Eating (QC): 6 Groomin Oral Hygiene (QC): 6 Bathing(FIM): 5 Shower/Bathe Self (QC): 5 Upper Body Dressing(FIM): 5 Upper Body Dressing (QC): 5 Lower Body Dressing(FIM): 5 Lower Body Dressing (QC): 5 On/Off Footwear (QC): 5 Toileting(FIM): 6 Toileting Hygiene (QC): 6 Toilet/Commode Transfer(FIM): 6 Toilet/Commode Transfer (QC): 6 Shower Transfer(FIM): 6 Comprehension(FIM): 3 Expression (FIM): 2 Social Interaction(FIM): 3 Problem Solving(FIM): 2 Memory(FIM): 2 Additional Goals: 2-Verbalize Understanding, 3-ImproveStrength/[place] 1=Demonstrate adherence to instructed precautions during ADL tasks. 2=Patient will verbalize/demonstrate understanding of assistive devices/ modifications for ADL. 3=Patient will improve strength/tolerance for activity to enable patient to perform ADL's. OT Education/Plan Problem List/Assessment Pt would benefit from skilled OT to increase her independence in basic self care to allow her to return home safely with family and to decrease caregiver burden Discharge Recommendations Plan/Recommendations: Continue POC Treatment Plan/Plan of Care Patient would benefit from OT for education, treatment and training to promote independence in ADL's, mobility, safety and/or upper extremity function for ADL' s. Plan of Care: ADL Retraining, Functional Mobility, Group Exercise/Act as Ind ( education, exercise, functional acitivities, communication, memory, problem solving), UE Funct Exercise/Act, UE Neuromus Re-Ed/Coord, Visual/Perceptual Retrain Treatment Duration: March 15, 2017 Visits Per Week: 10-11 Minutes/Day (M-F): 75-90 Minutes/Day (Sat/Anders): PRN Agreement: Yes Rehab Potential: Fair Time/GCodes Start Time: 08:00 Stop Time: 09:15 Total Time Billed (hr/min): 75 Billed Treatment Time 1 visit-ADL 5 (75 min) HUSSEIN PERDOMO Feb 25, 2017 10:30
--- NOTE | 2017-02-25 12:22 | Physical Therapy Daily Note ---
PT Daily Note-Current Subjective Pt is sitting in recliner upon arrival. Pt appears less focused and more confused today than normal. Pt agrees to PT. Pain Location: No Pain Reported Mental Status Patient Orientation: Person, Place Transfers Functional [place] Measure 0=Not Assessed/NA 4=Minimal Assistance 1=Total Assistance 5=Supervision or Setup 2=Maximal Assistance 6=Modified [place] 3=Moderate Assistance 7=Complete IndependenceIRFPAI Quality Coding Scale 6 Independent with activity with or without an assistive device 5 Patient requires set up or clean up by helper. Patient completes activity by themselves 4 Supervision or touching assist (CGA). [place] provide cues , steadying assist 3 The helper provides less than half the effort to complete the activity 2 The helper provides more than half the effort to complete the activity 1 Dependent. The helper does all the effort to complete an activity 7 Patient refused to complete or attempt activity 9 The patient did not perform the activity before the current illness or injury 88 Not attempted due to Medical conditions or safety concerns Scootin Sit to/from Stand: 4 Sit to Stand (QC): 4 Weight Bearing Weight Bearing Restriction: Full Weight Bearing Location Restriction: LE Bilateral Gait Training Does the Patient Walk?: Yes Distance (FIM): 9=434-07 ft Distance: 60' Walk 10 feet (QC): 4 Walk 50 ft with 2 Turns(QC): 4 Gait Level of Assist: 4 Gait Persons Needed: 1 Gait Assistive Device: FWW Pt walks slow and needs VC for sequencing and hand placement. Wheelchair Training Does the Pt Use a Wheelchair?: Yes Wheelchair Distance: 7=499-12 ft Distance: 50' Wheelchair Level of Assist: 3 Wheel 50 ft with 2 turns (QC): 3 Type of Wheelchair: Manual Exercises Seated Therapy Exercises: Ankle pumps, Long arc quads, Hip flexion, Kicking activity Seated Reps: 15 NuStep Minutes: 10 NuStep Workload: 1 Treatments Pt transfers from recliner to standing using FWW at Min A-CGA. Pt ambulates using FWW at Min A-CGA. Pt fatigues and transfers to [facility] with Mod A especially in turning. Pt transfers to NuStep and completes Seated Ex in [facility]. Pt is fatigued and returns to room via [facility] that PT propels. Pt transfers to standing from [facility] to use restroom at end of tx. OT is present to monitor pt for bowel/ bladder program attempt. Pt is left with all needs met. Assessment Current Status: Fair Progress Pt is more confused during tx and has more trouble following VC. PT Short Term Goals Short Term Goals Time Frame: Mar 01, 2017 Transfers (B,C,W/C) (FIM): 4 Gait (FIM): 4 Distance (FIM): 3=150 ft Gait Assistive Device: FWW Wheelchair Distance: 50' Stairs (FIM): 2 # of Steps: 4 PT Dental Technology Advisor Goals Care Home Goals PT Dental Technology Advisor Goals Time Frame: March 15, 2017 Transfers (B,C,W/C) (FIM): 6 Sit to Lying (QC): 6 Lying-Sitting on Side/Bed(QC): 6 Sit to Stand (QC): 6 Rollin Roll Left to Right (QC): 6 Chair/Mox-uk-Ieshj Xfer(QC): 6 Car Transfer (QC): 5 Does the Patient Walk: Yes Gait (FIM): 6 Gait distance (FIM): 3=150 ft Walk 10 feet (QC): 6 Walk 10ft-Uneven Surface(QC): 6 Walk 50ft with 2 Turns (QC): 6 Walk 150 ft (QC): 6 Gait Level of Assist: 6 Gait Assistive Device: FWW Does the Pt use WC or Scooter?: No Stairs (FIM): 5 # of Steps: 8 1 Step (curb) (QC): 6 4 Steps (QC): 5 12 Steps (QC): 9 Stairs Level Of Assist: 6 Picking up an Object (QC): 4 PT Plan Problem List Problem List: Activity Tolerance, Functional Strength, Safety, Balance, Gait, Transfer, Bed Mobility Treatment/Plan Treatment Plan: Continue Plan of Care Treatment Plan: Bed Mobility, Education, Functional Activity [place], Functional Strength, Group Therapy, Gait, Safety, Therapeutic Exercise, Transfers Treatment Duration: March 15, 2017 Visits Per Week: 10-15 Minutes/Day (M-F): 60-90 Minutes/Day (Sat/Anders): prn Safety Risks/Education Patient Education: Gait Training, Transfer Techniques, W/C Management, Safety Issues Teaching Recipient: Patient Teaching Methods: Discussion Response to Teaching: Reinforcement Needed Time/GCodes Time In: 1030 Time Out: 1115 Total Billed Treatment Time: 45 Total Billed Treatment visit, GT (15m) & EX X2 (30m) JSESICA VIRGEN POWER PLANT SUPERINTENDENT Feb 25, 2017 12:22
--- NOTE | 2017-02-25 14:26 | PM & R (SOAP) Progress Note ---
Subjective Subjective/Events-last exam Patient was seen in her room this AM Patient min assist for transfers Objective Exam Last Set of Vital Signs Vital Signs Date Time Temp Pulse Resp B/P (MAP) Pulse Ox O2 Delivery O2 Flow Rate FiO2 02/25/17 09:00 Room Air 02/25/17 05:55 97.1 75 18 113/61 95 Capillary Refill : I&O Intake and Output 02/25/17 00:00 Intake Total 850 ml Balance 850 ml Intake Oral 850 ml # Voids 6 # Bowel Movements 1 General: Alert, Cooperative, No Acute Distress HEENT: Atraumatic, PERRLA, EOMI, Mucous Memb Moist/[place], Other (aphasic) Neck: Supple, No JVD Lungs: Clear to Auscultation Heart: Regular Rate Abdomen: Normal Bowel Sounds, Soft, No Tenderness Extremities: No Edema Neuro: Other (rt HP and aphasia) Assessment/Plan Assessment 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
--- NOTE | 2017-02-25 15:03 | Physical Therapy Daily Note ---
PT Daily Note-Current Subjective Pt is sitting in recliner visiting with SO upon arrival. Pt agrees to PT and SO comes along as well. Pain Location: No Pain Reported Mental Status Patient Orientation: Person, Place Transfers Functional [place] Measure 0=Not Assessed/NA 4=Minimal Assistance 1=Total Assistance 5=Supervision or Setup 2=Maximal Assistance 6=Modified [place] 3=Moderate Assistance 7=Complete IndependenceIRFPAI Quality Coding Scale 6 Independent with activity with or without an assistive device 5 Patient requires set up or clean up by helper. Patient completes activity by themselves 4 Supervision or touching assist (CGA). [place] provide cues , steadying assist 3 The helper provides less than half the effort to complete the activity 2 The helper provides more than half the effort to complete the activity 1 Dependent. The helper does all the effort to complete an activity 7 Patient refused to complete or attempt activity 9 The patient did not perform the activity before the current illness or injury 88 Not attempted due to Medical conditions or safety concerns Scootin Sit to/from Stand: 5 Sit to Stand (QC): 5 Weight Bearing Weight Bearing Restriction: Full Weight Bearing Location Restriction: LE Bilateral Gait Training Does the Patient Walk?: Yes Distance (FIM): 9=678-40 ft Distance: 100' Walk 10 feet (QC): 4 Walk 50 ft with 2 Turns(QC): 4 Gait Level of Assist: 4 Gait Persons Needed: 1 Gait Assistive Device: FWW Pt walks with slight kyphotic posture and slow shahzad but steady, no LOB. Pt walks farther than previous visits although still fatigues easy. Wheelchair Training Does the Pt Use a Wheelchair?: Yes Wheelchair Distance: 9=638-59 ft Distance: 50' Wheelchair Level of Assist: 3 Wheel 50 ft with 2 turns (QC): 3 Type of Wheelchair: Manual Exercises Seated Therapy Exercises: Ankle pumps, Long arc quads, Hip flexion, Kicking activity, Hip abd/add Seated Reps: 15 Treatments Pt transfers from recliner using FWW at [facility]. Pt ambulates using FWW at CGA-Min A. Pt fatigues and transfers to [facility] to propel to Therapy Gym. Pt then completes Seated EX in [facility] before returning to room to rest. Pt transfers back to recliner at [facility]. Pt is left with all needs met at end of tx. Assessment Current Status: Good Progress Pt is improving with with activity tolerance and safety of transfers and ambulation although still fatigues quickly. PT Short Term Goals Short Term Goals Time Frame: Mar 01, 2017 Transfers (B,C,W/C) (FIM): 4 Gait (FIM): 4 Distance (FIM): 3=150 ft Gait Assistive Device: FWW Wheelchair Distance: 50' Stairs (FIM): 2 # of Steps: 4 PT Apparatus Lineman Goals Half-Way Goals PT Half-Way Goals Time Frame: March 15, 2017 Transfers (B,C,W/C) (FIM): 6 Sit to Lying (QC): 6 Lying-Sitting on Side/Bed(QC): 6 Sit to Stand (QC): 6 Rollin Roll Left to Right (QC): 6 Chair/Upi-nt-[place]ewad Xfer(QC): 6 Car Transfer (QC): 5 Does the Patient Walk: Yes Gait (FIM): 6 Gait distance (FIM): 3=150 ft Walk 10 feet (QC): 6 Walk 10ft-Uneven Surface(QC): 6 Walk 50ft with 2 Turns (QC): 6 Walk 150 ft (QC): 6 Gait Level of Assist: 6 Gait Assistive Device: FWW Does the Pt use WC or Scooter?: No Stairs (FIM): 5 # of Steps: 8 1 Step (curb) (QC): 6 4 Steps (QC): 5 12 Steps (QC): 9 Stairs Level Of Assist: 6 Picking up an Object (QC): 4 PT Plan Problem List Problem List: Activity Tolerance, Functional Strength, Safety, Balance, Gait, Transfer Treatment/Plan Treatment Plan: Continue Plan of Care Treatment Plan: Bed Mobility, Education, Functional Activity [place], Functional Strength, Group Therapy, Gait, Safety, Therapeutic Exercise, Transfers Treatment Duration: March 15, 2017 Visits Per Week: 10-15 Minutes/Day (M-F): 60-90 Minutes/Day (Sat/Anders): prn Safety Risks/Education Patient Education: Gait Training, Transfer Techniques, Correct Positioning, Safety Issues Teaching Recipient: Patient, Significant Other Teaching Methods: Discussion Response to Teaching: Reinforcement Needed Time/GCodes Time In: 1300 Time Out: 1330 Total Billed Treatment Time: 30 Total Billed Treatment visit, GT (15m) & EX (15m) JESSICA VIRGEN FLANGING ROLL OPERATOR Feb 25, 2017 15:03
--- NOTE | 2017-02-25 16:45 | Podiatry Progress Note ---
Standard Progress Note Progress Notes/Assess & Plan Progress/Assessment & Plan Consult dictated. Foot care given. Final Diagnosis Onychomycosis Peripheral Neuropathy Hammertoes Hyperkeratosis MONAE ZHAO DPM Feb 25, 2017 16:45
[2017-02-25 18:30] VITALS: BP 135/75
[2017-02-25] MEDS: SIMvastatin 40 MG (ZOCOR) TAB PO SCH (20:00)
[2017-02-25] MEDS: LATANOPROST 0.005% (XALATAN) OPHTH SOLN 2.5 ML OD SCH (20:01)
[2017-02-26 05:00] VITALS: BP 112/68
[2017-02-26] MEDS: LEVOTHYROXINE 75 MCG (LEVOTHROID) TABLET PO SCH (06:37)
--- NOTE | 2017-02-26 07:15 | CONSULTATION REPORT ---
DATE OF CONSULTATION: 02/25/2017 REASON FOR CONSULT: Foot care. This 81-year-old female was admitted to the hospital secondary to right side facial droop, hemiparesis and aphasia. She was diagnosed with a cerebrovascular accident resulting in the above mentioned symptoms. PAST MEDICAL HISTORY: 1. She also has a past medical history of hemorrhagic stroke in 2014. 2. Chronic atrial fibrillation. 3. Rheumatoid arthritis. 4. Hypertension. 5. GERD. 6. Hypothyroidism, currently on replacement. PAST SURGICAL HISTORY: Past surgeries include: Surgical intervention to her foot bilaterally. ALLERGIES: 1. IODINE. 2. LIDOCAINE. FAMILY HISTORY: Is noncontributory. SOCIAL HISTORY: According to her record the patient had glaucoma and has difficulties seeing and taking care of activities of daily living. 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 She was driving previously to this last MCA ischemic infarction of the left temporoparietal and occipital lobes. In regards to her feet she has difficulty reaching and caring for them at this time. LOWER EXTREMITY EXAMINATION: The patient has 1/4 dorsalis pedis pulse on the right, 2/4 on the left, 0/4 posterior tibial pulse bilaterally. Capillary fill time is less than 3 seconds. She has intact protective sensation per 10 grams monofilament wire examination bilaterally. Deep tendon reflexes are diminished bilaterally. Diminished vibratory sensation to the first metatarsal head area bilaterally. DERMATOLOGICALLY: She has thick, yellow dystrophic toenails with subungual debris, R 1, 2, L1 digits. She also has a hyperkeratotic lesion to the plantar aspect of the left first metatarsal head area. MUSCULOSKELETAL FINDINGS: The patient has limited range of motion of the right first metatarsophalangeal joint. She has diminished muscle strength proximally 3/5 for dorsiflexion on the right, 4/5 plantar flexion eversion and inversion on the right, 4/5 muscle strength on the left for the 4 major quadrants of the foot. ASSESSMENT: 1. Onychomycosis. 2. Hallux rigidus, right. 3. Diminished muscle strength right foot. PLAN: Various treatment options were discussed with the patient. Her toenails were debrided manually and mechanically and a topical antibiotic applied. The hyperkeratotic lesion was also debrided and a Neosporin light dressing applied. The patient is to follow-up in my office upon discharge if necessary Job ID: [id number] Dictated Date: 02/25/2017 16:43:45 Vocational Trainer Date: 02/26/2017 07:05:21/lenny
[2017-02-26] MEDS: GABAPENTIN 300 MG (NEURONTIN) CAP PO SCH ×2 (08:27→19:46)
[2017-02-26] MEDS: APIXABAN 5 MG (ELIQUIS) TABLET PO SCH ×2 (08:27→19:46)
[2017-02-26] MEDS: ATENOLOL 25 MG (TENORMIN) TAB PO SCH (08:27)
[2017-02-26] MEDS: DIGOXIN 0.125 MG (LANOXIN) TAB PO SCH (08:27)
[2017-02-26] MEDS: FOLIC ACID 1 MG TAB PO SCH ×2 (08:27→19:46)
[2017-02-26] MEDS: lisINopril 10 MG (PRINIVIL) TAB PO SCH (08:27)
[2017-02-26] MEDS: PANTOPRAZOLE 20 MG TABLET (PROTONIX) PO SCH ×2 (08:27→19:46)
--- NOTE | 2017-02-26 08:27 | PM & R (SOAP) Progress Note ---
Subjective Subjective/Events-last exam Patient was seen in her room this AM Patient min assist for transfers Objective Exam Last Set of Vital Signs Vital Signs Date Time Temp Pulse Resp B/P (MAP) Pulse Ox O2 Delivery O2 Flow Rate FiO2 02/26/17 05:00 97.7 59 16 112/68 98 Room Air Capillary Refill : I&O Intake and Output 02/26/17 00:00 Intake Total 890 ml Balance 890 ml Intake Oral 890 ml # Voids 5 # Bowel Movements 1 General: Alert, Cooperative, No Acute Distress HEENT: Atraumatic, PERRLA, EOMI, Mucous Memb Moist/[place], Other (aphasic) Neck: Supple, No JVD Lungs: Clear to Auscultation Heart: Regular Rate Abdomen: Normal Bowel Sounds, Soft, No Tenderness Extremities: No Edema Neuro: Other (rt HP and aphasia) Assessment/Plan Assessment 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
[2017-02-26] MEDS: CYCLOPENTOLATE 1% (CYCLOGYL) 2 ML DROPS OD SCH (08:29)
[2017-02-26] MEDS: prednisoLONE 1% OPTH (PRED FORTE) 5 ML BTL OD SCH ×4 (08:29→19:48)
[2017-02-26] MEDS: TIMOLOL MALEATE 0.5% 5 ML (TIMOPTIC) BTL OU SCH ×2 (08:30→19:48)
[2017-02-26] MEDS: BRIMONIDINE 0.2% (ALPHAGAN) OPHTH SOLN 5 ML BTL OU SCH ×3 (08:30→19:48)
--- NOTE | 2017-02-26 11:02 | Speech Therapy Daily Note ---
Speech Daily Progress Note Subjective The patient was seated upright in recliner upon entrance. The patient greeted the clinician appropriately and was agreeable to speech and language treatment via head nod. Objective Yes/No Questions: Through verbalizations, the patient demonstrated 68% accuracy with yes/no questions (consistent with previous sessions). Repetition: Following maximum verbal cueing, direct modeling, and multiple attempts, the patient was unable to repeat her name or single syllable, bilabial words on this date. Phrase Completion: The patient was unable to provide appropriate single words to complete short phrases on this date. Increased verbalizations were demonstrated on this date, however, not appropriate for the subject or questions being discussed. Assessment Assessment Current Status: Fair Progress Treatment Plan Continue Plan of Care Communication Comprehension: 2 Expression: 1 Social Cognition Social Interaction: 1 Problem Solvin Memory: 1 Speech Short Term Goals Short Term Goals Short Term Goals 1. The patient will demonstrate swallowing strategies with 80% accuracy and mild clinician verbal cueing. INITIATED 2. The patient will demonstrate dysphagia strengthening exercises with 80% accuracy and mild clinician verbal cueing. INITIATED (02/24/17) 3. The patient will repeat single, bilabial phonemes with 80% accuracy and maximum clinician verbal cueing. NOT PROGRESSING 4. The patient will identify common objects in a field of two. NOT PROGRESSING 5. The patient will display 80% accuracy with simple yes/no questions through pointing, head nods, or verbalizations. PROGRESSING (02/18/17) Time Frame-STG: Four Weeks Speech Assisted Goals Studio Assistant Goals 1. The patient will tolerate the least restrictive diet without signs/symptoms of aspiration or laryngeal penetration. 2. The patient will demonstrate improved expressive and receptive language for increased function and safety with ADL's in the least restrictive setting. Time Frame: Four Weeks Comprehension: 3 Expression: 2 Social Interaction: 3 Problem Solvin Memory: 2 Speech-Plan Treatment Plan Speech Therapy Treatment Plan: Continue Plan of Care Continue skilled speech pathology intervention to target improved expressive and receptive communication. Treatment Duration: March 15, 2017 # of days/week Five. Visits Per Week: Five Minutes/Day (M-F): 30 Rehab Potential: Fair Safety Risks/Education Teaching Recipient: Patient Teaching Methods: Demonstration Response to Teaching: Unable to Return Demonstration Education Topics Provided: Bilabial Practice Sheet Time Speech Therapy Time In: 09:00 Speech Therapy Time Out: 09:30 Total Billed Time: 30 Billed Treatment Time , MATTHIEU BRAVO Feb 26, 2017 11:02
--- NOTE | 2017-02-26 11:24 | Occupational Ther Daily Note ---
OT Current Status-Daily Note Subjective Pt lying in bed just finished breakfast. Pt agreed to therapy. Pt attempted to ask questions about daily board in room, but unable to get question across. RODNEY offered to ambulate pt to board, but pt declined. No c/o pain. Mental Status/Objective Patient Orientation: Person, Place, Non-Verbal/Aphasic, Time, Situation Functional [place] Measure 0=Not Assessed/NA 4=Minimal Assistance 1=Total Assistance 5=Supervision or Setup 2=Maximal Assistance 6=Modified [place] 3=Moderate Assistance 7=Complete [place] ADL-Treatment Functional [place] Measure 0=Not Assessed/NA 4=Minimal Assistance 1=Total Assistance 5=Supervision or Setup 2=Maximal Assistance 6=Modified [place] 3=Moderate Assistance 7=Complete IndependenceIRFPAI Quality Coding Scale 6 Independent with activity with or without an assistive device 5 Patient requires set up or clean up by helper. Patient completes activity by themselves 4 Supervision or touching assist (CGA). [place] provide cues , steadying assist 3 The helper provides less than half the effort to complete the activity 2 The helper provides more than half the effort to complete the activity 1 Dependent. The helper does all the effort to complete an activity 7 Patient refused to complete or attempt activity 9 The patient did not perform the activity before the current illness or injury 88 Not attempted due to Medical conditions or safety concerns Grooming (FIM): 5 (Standing at sink with FWW, pt was able to use tooth brush and hair brush appropriately though did not assist to initiate task.) Bathing (FIM): 5 (After set up and being handed wash cloth for cue to initiate , pt is able to complete with SBA.) Bathing Location: L Arm, R Arm, L Upper Leg, R Upper Leg, L Lower Leg ( including foot), R Lower Leg (including foot), Chest, Abdomen, Buttocks, Perineal Area Upper Body (FIM): 5 (After set up and cue to initiate, pt is able to complete task.) Lower Body Dressing (FIM): 4 (After setting up clothing in correct sequence to don and cue to initiate task, pt is able to complete with SBA and one cue to stand to hike pants over hips. Assist to don socks.) Toileting (FIM): 5 (Pt agreed to go to toilet though was incontinent in brief prior to sitting on toilet. Pt was able to hike pants over hips and cleanse self with SBA, cues to initiate.) Transfers (B, C, W/C) (FIM): 4 (Cues for hand placement and CGA when coming from or sitting on a lower surface.) After therapy, pt sitting in recliner with nrsg present. Call light/phone in reach. All needs met in room. OT Short Term Goals Short Term Goals Time Frame: Mar 01, 2017 Eating(FIM): 5 Grooming(FIM): 5 Bathing(FIM): 4 Upper Body Dressing(FIM): 4 Lower Body Dressing(FIM): 4 Toileting(FIM): 4 Transfers (B,C,W/C) (FIM): 4 Toilet/Commode Transfer(FIM): 4 Shower Transfer(FIM): 4 Additional Short Term Goals: 2-Verbalize Understanding, 3-ImproveStrength/[place] 1=Demonstrate adherence to instructed precautions during ADL tasks. 2=Patient will verbalize/demonstrate understanding of assistive devices/ modifications for ADL. 3=Patient will improve strength/tolerance for activity to enable patient to perform ADL's. OT Medical Coding Auditor Goals Medical Coding Auditor Goals Time Frame: March 15, 2017 Eating (FIM): 6 Eating (QC): 6 Groomin Oral Hygiene (QC): 6 Bathing(FIM): 5 Shower/Bathe Self (QC): 5 Upper Body Dressing(FIM): 5 Upper Body Dressing (QC): 5 Lower Body Dressing(FIM): 5 Lower Body Dressing (QC): 5 On/Off Footwear (QC): 5 Toileting(FIM): 6 Toileting Hygiene (QC): 6 Toilet/Commode Transfer(FIM): 6 Toilet/Commode Transfer (QC): 6 Shower Transfer(FIM): 6 Comprehension(FIM): 3 Expression (FIM): 2 Social Interaction(FIM): 3 Problem Solving(FIM): 2 Memory(FIM): 2 Additional Goals: 2-Verbalize Understanding, 3-ImproveStrength/[place] 1=Demonstrate adherence to instructed precautions during ADL tasks. 2=Patient will verbalize/demonstrate understanding of assistive devices/ modifications for ADL. 3=Patient will improve strength/tolerance for activity to enable patient to perform ADL's. OT Education/Plan Problem List/Assessment Pt would benefit from skilled OT to increase her independence in basic self care to allow her to return home safely with family and to decrease caregiver burden Discharge Recommendations Plan/Recommendations: Continue POC Treatment Plan/Plan of Care Patient would benefit from OT for education, treatment and training to promote independence in ADL's, mobility, safety and/or upper extremity function for ADL' s. Plan of Care: ADL Retraining, Functional Mobility, Group Exercise/Act as Ind ( education, exercise, functional acitivities, communication, memory, problem solving), UE Funct Exercise/Act, UE Neuromus Re-Ed/Coord, Visual/Perceptual Retrain Treatment Duration: March 15, 2017 Visits Per Week: 10-11 Minutes/Day (M-F): 75-90 Minutes/Day (Sat/Anders): PRN Agreement: Yes Rehab Potential: Fair Time/GCodes Start Time: 08:00 Stop Time: 08:45 Total Time Billed (hr/min): 45 Billed Treatment Time 1 visit-ADL 3 (45 min) HUSSEIN PERDOMO Feb 26, 2017 11:24
--- NOTE | 2017-02-26 11:53 | Physical Therapy Daily Note ---
PT Daily Note-Current Subjective Pt. up in recliner, more verbal than previously with this ELECTRONIC GAME DEVELOPER. Shakes head yes and no when asked question and gestures appropriately several times. Pain Numeric Pain Scale: 0-No Pain Appearance head down most of the time, needs cuing to bring attention to surroundings and direction she is headed while walking etc. Mental Status Patient Orientation: Non-Verbal/Aphasic Transfers Functional [place] Measure 0=Not Assessed/NA 4=Minimal Assistance 1=Total Assistance 5=Supervision or Setup 2=Maximal Assistance 6=Modified [place] 3=Moderate Assistance 7=Complete IndependenceIRFPAI Quality Coding Scale 6 Independent with activity with or without an assistive device 5 Patient requires set up or clean up by helper. Patient completes activity by themselves 4 Supervision or touching assist (CGA). [place] provide cues , steadying assist 3 The helper provides less than half the effort to complete the activity 2 The helper provides more than half the effort to complete the activity 1 Dependent. The helper does all the effort to complete an activity 7 Patient refused to complete or attempt activity 9 The patient did not perform the activity before the current illness or injury 88 Not attempted due to Medical conditions or safety concerns Transfers (B, C, W/C) (FIM): 4 Scootin Rollin Sit to/from Stand: 4 Bed to/from Chair: 4 Gait Training Does the Patient Walk?: Yes Gait (FIM): 3 Distance (FIM): 3=150 ft (150x2,75x2) Gait Level of Assist: 3 Gait Persons Needed: 1 Gait Assistive Device: FWW pt. with very short stride on right needed repeated verbal and tactile cuing to advance RLE a decent distance, at end of gait and Rx pts gait and R step had improved Exercises Supine Ex: Bridging, Ankle pumps, Quad Set, Rolling, Glut sets, Heel Slides, Short Arc Quads, Scooting, Straight leg raise, Hip abd/add Supine Reps: 15 Seated Therapy Exercises: Ankle pumps, Sit to stand, Long arc quads, Hip flexion, Hip abd/add Seated Reps: 10 Assessment Current Status: Good Progress fatigues, gets frustrated PT Short Term Goals Short Term Goals Time Frame: Mar 01, 2017 Transfers (B,C,W/C) (FIM): 4 Gait (FIM): 4 Distance (FIM): 3=150 ft Gait Assistive Device: FWW Wheelchair Distance: 50' Stairs (FIM): 2 # of Steps: 4 PT Farm Equipment Engine Mechanic Goals Farm Equipment Engine Mechanic Goals PT Correction Goals Time Frame: March 15, 2017 Transfers (B,C,W/C) (FIM): 6 Sit to Lying (QC): 6 Lying-Sitting on Side/Bed(QC): 6 Sit to Stand (QC): 6 Rollin Roll Left to Right (QC): 6 Chair/Waa-sj-Zssuy Xfer(QC): 6 Car Transfer (QC): 5 Does the Patient Walk: Yes Gait (FIM): 6 Gait distance (FIM): 3=150 ft Walk 10 feet (QC): 6 Walk 10ft-Uneven Surface(QC): 6 Walk 50ft with 2 Turns (QC): 6 Walk 150 ft (QC): 6 Gait Level of Assist: 6 Gait Assistive Device: FWW Does the Pt use WC or Scooter?: No Stairs (FIM): 5 # of Steps: 8 1 Step (curb) (QC): 6 4 Steps (QC): 5 12 Steps (QC): 9 Stairs Level Of Assist: 6 Picking up an Object (QC): 4 PT Plan Treatment/Plan Treatment Plan: Continue Plan of Care Treatment Plan: Bed Mobility, Education, Functional Activity [place], Functional Strength, Group Therapy, Gait, Safety, Therapeutic Exercise, Transfers Treatment Duration: March 15, 2017 Visits Per Week: 10-15 Minutes/Day (M-F): 60-90 Minutes/Day (Sat/Anders): prn Safety Risks/Education Patient Education: Gait Training, Transfer Techniques, Correct Positioning, Safety Issues Teaching Recipient: Patient Teaching Methods: Demonstration, Discussion Response to Teaching: Verbalize Understanding, Return Demonstration, Reinforcement Needed Time/GCodes Time In: 1100 Time Out: 1200 Total Billed Treatment Time: 60 Total Billed Treatment 1,FA15m,GT20m,EX25m G Codes Necessary: No MOISE HANSON ELECTRONIC GAME DEVELOPER Feb 26, 2017 11:53
--- NOTE | 2017-02-26 14:55 | Therapy Group Daily Note ---
Therapy Daily Group Note Other/Notes Pt was transported to group via w/c. OT/PT group consisted of introductions ( name, place, family history) then socializing within groups while completing fine motor tasks that worked on problem solving, recall/memory and UE gross motor. Pt was able to tolerate all activities and contributed to conversations with assist due to expressive aphasia. After therapy, pt in room sitting in recliner. Call light/phone in reach. All needs met in room. Start Time: 13:00 Stop Time: 14:20 Total Billed Treatment Time: 80 Total Billed Treatment 1-GRP HUSSEIN PERDOMO Feb 26, 2017 14:55
[2017-02-26 18:41] VITALS: BP 123/75
[2017-02-26] MEDS: SIMvastatin 40 MG (ZOCOR) TAB PO SCH (19:46)
[2017-02-26] MEDS: LATANOPROST 0.005% (XALATAN) OPHTH SOLN 2.5 ML OD SCH (19:47)
[2017-02-27] MEDS: LEVOTHYROXINE 75 MCG (LEVOTHROID) TABLET PO SCH (05:18)
[2017-02-27 05:35] VITALS: BP 136/75
[2017-02-27] MEDS: lisINopril 10 MG (PRINIVIL) TAB PO SCH (09:04)
[2017-02-27] MEDS: GABAPENTIN 300 MG (NEURONTIN) CAP PO SCH ×2 (09:04→20:29)
[2017-02-27] MEDS: PANTOPRAZOLE 20 MG TABLET (PROTONIX) PO SCH ×2 (09:04→20:29)
[2017-02-27] MEDS: FOLIC ACID 1 MG TAB PO SCH ×2 (09:04→20:29)
[2017-02-27] MEDS: DIGOXIN 0.125 MG (LANOXIN) TAB PO SCH (09:04)
[2017-02-27] MEDS: ATENOLOL 25 MG (TENORMIN) TAB PO SCH (09:04)
[2017-02-27] MEDS: CYCLOPENTOLATE 1% (CYCLOGYL) 2 ML DROPS OD SCH (09:05)
[2017-02-27] MEDS: prednisoLONE 1% OPTH (PRED FORTE) 5 ML BTL OD SCH ×4 (09:05→20:56)
[2017-02-27] MEDS: TIMOLOL MALEATE 0.5% 5 ML (TIMOPTIC) BTL OU SCH ×2 (09:05→20:56)
[2017-02-27] MEDS: BRIMONIDINE 0.2% (ALPHAGAN) OPHTH SOLN 5 ML BTL OU SCH ×3 (09:05→20:43)
[2017-02-27] MEDS: APIXABAN 5 MG (ELIQUIS) TABLET PO SCH ×2 (09:08→20:29)
--- NOTE | 2017-02-27 10:53 | Physical Therapy Daily Note ---
PT Daily Note-Current Subjective Nods to agree to PT. Transfers Functional [place] Measure 0=Not Assessed/NA 4=Minimal Assistance 1=Total Assistance 5=Supervision or Setup 2=Maximal Assistance 6=Modified [place] 3=Moderate Assistance 7=Complete IndependenceIRFPAI Quality Coding Scale 6 Independent with activity with or without an assistive device 5 Patient requires set up or clean up by helper. Patient completes activity by themselves 4 Supervision or touching assist (CGA). [place] provide cues , steadying assist 3 The helper provides less than half the effort to complete the activity 2 The helper provides more than half the effort to complete the activity 1 Dependent. The helper does all the effort to complete an activity 7 Patient refused to complete or attempt activity 9 The patient did not perform the activity before the current illness or injury 88 Not attempted due to Medical conditions or safety concerns Treatments Sit to from stand with SB-CGA and intermittent cues for hand placement. Gt x 150 ft x 2 with FWW with CGA and skilled cues for larger steps and foot clearance. Pt needs assist to address objects on her right as she tends to neglect and also has decreased right eye vision. Toileted with CGA while she pulled her pants up and down and cues for pericare. SB-CGA for her to stand at sink and wash her hands. Pt in chair post treatment with chair alarm activitated and warm blanket provided. Assessment Current Status: Good Progress Still needs cues for safety and sequencing. Short steps with decreased foot clearance, corrects with cuing and needs cues 75% of the time. PT Short Term Goals Short Term Goals Time Frame: Mar 01, 2017 Transfers (B,C,W/C) (FIM): 4 Gait (FIM): 4 Distance (FIM): 3=150 ft Gait Assistive Device: FWW Wheelchair Distance: 50' Stairs (FIM): 2 # of Steps: 4 PT Program Research Specialist Goals Program Research Specialist Goals PT Skilled Nursing Goals Time Frame: March 15, 2017 Transfers (B,C,W/C) (FIM): 6 Sit to Lying (QC): 6 Lying-Sitting on Side/Bed(QC): 6 Sit to Stand (QC): 6 Rollin Roll Left to Right (QC): 6 Chair/Ssr-wz-Dluuf Xfer(QC): 6 Car Transfer (QC): 5 Does the Patient Walk: Yes Gait (FIM): 6 Gait distance (FIM): 3=150 ft Walk 10 feet (QC): 6 Walk 10ft-Uneven Surface(QC): 6 Walk 50ft with 2 Turns (QC): 6 Walk 150 ft (QC): 6 Gait Level of Assist: 6 Gait Assistive Device: FWW Does the Pt use WC or Scooter?: No Stairs (FIM): 5 # of Steps: 8 1 Step (curb) (QC): 6 4 Steps (QC): 5 12 Steps (QC): 9 Stairs Level Of Assist: 6 Picking up an Object (QC): 4 PT Plan Problem List Problem List: Activity Tolerance, Functional Strength, Safety, Balance Treatment/Plan Treatment Plan: Continue Plan of Care Treatment Plan: Bed Mobility, Education, Functional Activity [place], Functional Strength, Group Therapy, Gait, Safety, Therapeutic Exercise, Transfers Treatment Duration: March 15, 2017 Visits Per Week: 10-15 Minutes/Day (M-F): 60-90 Minutes/Day (Sat/Anders): prn Safety Risks/Education Patient Education: Gait Training Teaching Recipient: Patient Teaching Methods: Demonstration, Discussion Response to Teaching: Return Demonstration, Reinforcement Needed Time/GCodes Time In: 1020 Time Out: 1045 Total Billed Treatment Time: 25 Total Billed Treatment visit GT 15 FA 10 HUSSEIN JAMIL PT Feb 27, 2017 10:53
[2017-02-27 17:43] VITALS: BP 142/76
[2017-02-27] MEDS: SIMvastatin 40 MG (ZOCOR) TAB PO SCH (20:29)
[2017-02-27] MEDS: LATANOPROST 0.005% (XALATAN) OPHTH SOLN 2.5 ML OD SCH (20:42)
[2017-02-28 05:10] VITALS: BP 145/85
[2017-02-28] MEDS: LEVOTHYROXINE 75 MCG (LEVOTHROID) TABLET PO SCH (06:44)
[2017-02-28 07:59] VITALS: BP 139/83
[2017-02-28] MEDS: DIGOXIN 0.125 MG (LANOXIN) TAB PO SCH (08:00)
[2017-02-28] MEDS: GABAPENTIN 300 MG (NEURONTIN) CAP PO SCH ×2 (08:01→20:24)
[2017-02-28] MEDS: ATENOLOL 25 MG (TENORMIN) TAB PO SCH (08:01)
[2017-02-28] MEDS: lisINopril 10 MG (PRINIVIL) TAB PO SCH (08:01)
[2017-02-28] MEDS: APIXABAN 5 MG (ELIQUIS) TABLET PO SCH ×2 (08:01→20:24)
[2017-02-28] MEDS: FOLIC ACID 1 MG TAB PO SCH ×2 (08:01→20:24)
[2017-02-28] MEDS: PANTOPRAZOLE 20 MG TABLET (PROTONIX) PO SCH ×2 (08:01→20:23)
[2017-02-28] MEDS: prednisoLONE 1% OPTH (PRED FORTE) 5 ML BTL OD SCH ×4 (08:03→20:24)
[2017-02-28] MEDS: BRIMONIDINE 0.2% (ALPHAGAN) OPHTH SOLN 5 ML BTL OU SCH ×3 (08:03→20:24)
[2017-02-28] MEDS: TIMOLOL MALEATE 0.5% 5 ML (TIMOPTIC) BTL OU SCH ×2 (08:03→20:24)
[2017-02-28] MEDS: CYCLOPENTOLATE 1% (CYCLOGYL) 2 ML DROPS OD SCH (08:05)
[2017-02-28 17:52] VITALS: BP 138/80
[2017-02-28] MEDS: SIMvastatin 40 MG (ZOCOR) TAB PO SCH (20:24)
[2017-02-28] MEDS: LATANOPROST 0.005% (XALATAN) OPHTH SOLN 2.5 ML OD SCH (20:24)
[2017-03-01 05:02] VITALS: BP 108/69
[2017-03-01] MEDS: LEVOTHYROXINE 75 MCG (LEVOTHROID) TABLET PO SCH (05:43)
--- NOTE | 2017-03-01 08:19 | Occupational Ther Daily Note ---
OT Current Status-Daily Note Subjective Pt alert, lying in bed. Pt anxious about not receiving breakfast by 7 am. RODNEY discussed with dietary, dietary went to check on pt's breakfast and it was ready when dietary checked on it. Pt agreed to therapy. No c/o pain. Pt did have dizziness when initially standing up out of bed. Mental Status/Objective Patient Orientation: Person, Place, Non-Verbal/Aphasic, Time, Situation Functional [place] Measure 0=Not Assessed/NA 4=Minimal Assistance 1=Total Assistance 5=Supervision or Setup 2=Maximal Assistance 6=Modified [place] 3=Moderate Assistance 7=Complete [place] ADL-Treatment Functional [place] Measure 0=Not Assessed/NA 4=Minimal Assistance 1=Total Assistance 5=Supervision or Setup 2=Maximal Assistance 6=Modified [place] 3=Moderate Assistance 7=Complete IndependenceIRFPAI Quality Coding Scale 6 Independent with activity with or without an assistive device 5 Patient requires set up or clean up by helper. Patient completes activity by themselves 4 Supervision or touching assist (CGA). [place] provide cues , steadying assist 3 The helper provides less than half the effort to complete the activity 2 The helper provides more than half the effort to complete the activity 1 Dependent. The helper does all the effort to complete an activity 7 Patient refused to complete or attempt activity 9 The patient did not perform the activity before the current illness or injury 88 Not attempted due to Medical conditions or safety concerns Eating (FIM): 5 (After setup, pt is able to feed self. Does better when items are positioned toward L side of tray.) Grooming (FIM): 5 (Pt requires cues for finding items around sink to complete grooming then used toothpaste tube to brush teeth. Cues needed to switch to tooth brush then set up.) Bathing (FIM): 5 (Using grabbrars, hand held shower and shower bench pt was able to complete with SBA after set up. Pt required soap to be placed on washclothe and then handed to her. Cue to stand and cleanse buttocks/jose rafael area. Pt able to dry self.) Shower/Bathe Self (QC): 4 (Using grabbrars, hand held shower and shower bench pt was able to complete with SBA after set up. Pt required soap to be placed on washclothe and then handed to her. Cue to stand and cleanse buttocks/jose rafael area. Pt able to dry self.) Upper Body (FIM): 5 (After setup, pt is able to don/doff upper body clothing by self.) Upper Body Dressing (QC): 5 (After setup, pt is able to don/doff upper body clothing by self.) Lower Body Dressing (FIM): 4 (Pt is able to doff clothing by self with SBA when standing to hike over hips. When items are laid out in correct sequence to don pt is able to initiate without intervention. Reminders to don R LE first is needed. Pt typically dons L LE first and then requires min A to don over R LE. Pt able to don L sock by self then requires assist to don R sock. SBA in standing to hike pants over hips.) Lower Body Dressing (QC): 3 (Pt is able to doff clothing by self with SBA when standing to hike over hips. When items are laid out in correct sequence to don pt is able to initiate without intervention. Reminders to don R LE first is needed. Pt typically dons L LE first and then requires min A to don over R LE. Pt able to don L sock by self then requires assist to don R sock. SBA in standing to hike pants over hips.) Toileting (FIM): 5 (Pt able to stand and manipulate clothing with SBA and cleanse self.) Transfers (B, C, W/C) (FIM): 5 (Cues to position hands to push up instead of pull on FWW. Pt is able to complete.) Toilet/Commode Transfer (FIM): 5 (Cues to position hands to push up instead of pull on FWW. Pt is able to complete.) Shower Transfer(FIM): 5 (Using grabbars, FWW and shower bench pt is able to complete with verbal cues and SBA.) Pt demonstrated better initiation today during ADL tasks. When pt was not sure what to do she would shrug shoulders and shake head 'no'. After therapy, pt sitting in recliner with call light/phone, safety measures in place. APPLICATION SUPPORT TECHNICIAN took over care. All needs met in room. OT Short Term Goals Short Term Goals Time Frame: Mar 01, 2017 Eating(FIM): 5 (met-03/01/17) Grooming(FIM): 5 (met-03/01/17) Bathing(FIM): 4 (met-03/01/17) Upper Body Dressing(FIM): 4 (met-03/01/17) Lower Body Dressing(FIM): 4 (met-03/01/17) Toileting(FIM): 4 (met-03/01/17) Transfers (B,C,W/C) (FIM): 4 (met-03/01/17) Toilet/Commode Transfer(FIM): 4 (met-03/01/17) Shower Transfer(FIM): 4 (met-03/01/17) Additional Short Term Goals: 2-Verbalize Understanding, 3-ImproveStrength/[place] 1=Demonstrate adherence to instructed precautions during ADL tasks. 2=Patient will verbalize/demonstrate understanding of assistive devices/ modifications for ADL. 3=Patient will improve strength/tolerance for activity to enable patient to perform ADL's. OT Substation Operator Conversion Goals Alf Goals Time Frame: March 15, 2017 Eating (FIM): 6 Eating (QC): 6 Groomin Oral Hygiene (QC): 6 Bathing(FIM): 5 Shower/Bathe Self (QC): 5 Upper Body Dressing(FIM): 5 Upper Body Dressing (QC): 5 Lower Body Dressing(FIM): 5 Lower Body Dressing (QC): 5 On/Off Footwear (QC): 5 Toileting(FIM): 6 Toileting Hygiene (QC): 6 Toilet/Commode Transfer(FIM): 6 Toilet/Commode Transfer (QC): 6 Shower Transfer(FIM): 6 Comprehension(FIM): 3 Expression (FIM): 2 Social Interaction(FIM): 3 Problem Solving(FIM): 2 Memory(FIM): 2 Additional Goals: 2-Verbalize Understanding, 3-ImproveStrength/[place] 1=Demonstrate adherence to instructed precautions during ADL tasks. 2=Patient will verbalize/demonstrate understanding of assistive devices/ modifications for ADL. 3=Patient will improve strength/tolerance for activity to enable patient to perform ADL's. OT Education/Plan Problem List/Assessment Pt would benefit from skilled OT to increase her independence in basic self care to allow her to return home safely with family and to decrease caregiver burden Discharge Recommendations Plan/Recommendations: Continue POC Treatment Plan/Plan of Care Patient would benefit from OT for education, treatment and training to promote independence in ADL's, mobility, safety and/or upper extremity function for ADL' s. Plan of Care: ADL Retraining, Functional Mobility, Group Exercise/Act as Ind ( education, exercise, functional acitivities, communication, memory, problem solving), UE Funct Exercise/Act, UE Neuromus Re-Ed/Coord, Visual/Perceptual Retrain Treatment Duration: March 15, 2017 Visits Per Week: 10-11 Minutes/Day (M-F): 75-90 Minutes/Day (Sat/Anders): PRN Agreement: Yes Rehab Potential: Fair Time/GCodes Start Time: 07:00 Stop Time: 08:30 Total Time Billed (hr/min): 90 Billed Treatment Time 1 visit-ADL 6 (90 min) HUSSEIN PERDOMO Mar 01, 2017 08:19
[2017-03-01 08:43] VITALS: BP 125/74
[2017-03-01] MEDS: FOLIC ACID 1 MG TAB PO SCH ×2 (08:44→20:42)
[2017-03-01] MEDS: GABAPENTIN 300 MG (NEURONTIN) CAP PO SCH ×2 (08:44→20:43)
[2017-03-01] MEDS: lisINopril 10 MG (PRINIVIL) TAB PO SCH (08:44)
[2017-03-01] MEDS: APIXABAN 5 MG (ELIQUIS) TABLET PO SCH ×2 (08:44→20:43)
[2017-03-01] MEDS: ATENOLOL 25 MG (TENORMIN) TAB PO SCH (08:44)
[2017-03-01] MEDS: DIGOXIN 0.125 MG (LANOXIN) TAB PO SCH (08:44)
[2017-03-01] MEDS: PANTOPRAZOLE 20 MG TABLET (PROTONIX) PO SCH ×2 (08:44→20:43)
[2017-03-01] MEDS: TIMOLOL MALEATE 0.5% 5 ML (TIMOPTIC) BTL OU SCH ×2 (08:46→20:45)
[2017-03-01] MEDS: prednisoLONE 1% OPTH (PRED FORTE) 5 ML BTL OD SCH ×4 (08:46→20:45)
[2017-03-01] MEDS: BRIMONIDINE 0.2% (ALPHAGAN) OPHTH SOLN 5 ML BTL OU SCH ×3 (08:46→20:46)
[2017-03-01] MEDS: CYCLOPENTOLATE 1% (CYCLOGYL) 2 ML DROPS OD SCH (08:47)
--- NOTE | 2017-03-01 10:15 | Speech Therapy Daily Note ---
Speech Daily Progress Note Subjective The patient was seated upright in recliner upon entrance. The patient greeted the clinician verbally ("hi") and was agreeable to the speech and language treatment session on this date. Objective Automatic Phrases: The patient responded with increased appropriateness to common questions and phrases. The patient stated, "pretty good," "hi," "bye honey," in response to questions poised by the clinician. Automatics: The patient was unable to state the days of the week or count to five with maximum clinician verbal prompting and phonemic cues. Confrontational Naming (objects and pictures): The patient was unable to state the name of a common ADL objects or pictures with maximum clinician verbal prompts including phonemic cues, functional use, or field of two. Dysphagia Exercises: The patient was able to complete lingual protrusion exercise intermittently with maximum clinician verbal cueing and direct modeling. The patient was unable to complete the remaining dysphagia exercises due to reduced comprehension (regardless of maximum clinician cueing). Assessment Assessment Current Status: Fair Progress Treatment Plan Continue Plan of Care Communication Comprehension: 2 Expression: 1 Social Cognition Social Interaction: 1 Problem Solvin Memory: 1 Speech Short Term Goals Short Term Goals Short Term Goals 1. The patient will demonstrate swallowing strategies with 80% accuracy and mild clinician verbal cueing. INITIATED 2. The patient will demonstrate dysphagia strengthening exercises with 80% accuracy and mild clinician verbal cueing. INITIATED (02/24/17) 3. The patient will repeat single, bilabial phonemes with 80% accuracy and maximum clinician verbal cueing. NOT PROGRESSING 4. The patient will identify common objects in a field of two. NOT PROGRESSING 5. The patient will display 80% accuracy with simple yes/no questions through pointing, head nods, or verbalizations. PROGRESSING (02/18/17) Time Frame-STG: Four Weeks Speech Long-Term Goals Long-Term Goals 1. The patient will tolerate the least restrictive diet without signs/symptoms of aspiration or laryngeal penetration. 2. The patient will demonstrate improved expressive and receptive language for increased function and safety with ADL's in the least restrictive setting. Time Frame: Four Weeks Comprehension: 3 Expression: 2 Social Interaction: 3 Problem Solvin Memory: 2 Speech-Plan Treatment Plan Speech Therapy Treatment Plan: Continue Plan of Care Continue skilled speech pathology to target expressive and receptive communication. Treatment Duration: March 15, 2017 # of days/week Five. Visits Per Week: Five Minutes/Day (M-F): 30 Rehab Potential: Fair Safety Risks/Education Teaching Recipient: Patient Teaching Methods: Demonstration, Handout, Discussion Response to Teaching: Reinforcement Needed Education Topics Provided: Dysphagia Exercises, Orientation Strategies Time Speech Therapy Time In: 08:30 Speech Therapy Time Out: 09:00 Total Billed Time: 30 Billed Treatment Time 1, RHETT 1, MATTHIEU MELENDEZ Mar 01, 2017 10:15
--- NOTE | 2017-03-01 11:45 | Physical Therapy Daily Note ---
PT Daily Note-Current Subjective Patient in recliner pre tx, she is very reluctant to participate in PT but agrees eventually. Patient has no complaints of pain. Appearance Patient in recliner post tx with nurse call, phone, tray, lunch ready to eat. Mental Status Patient Orientation: Unable to Assess Transfers Functional [place] Measure 0=Not Assessed/NA 4=Minimal Assistance 1=Total Assistance 5=Supervision or Setup 2=Maximal Assistance 6=Modified [place] 3=Moderate Assistance 7=Complete IndependenceIRFPAI Quality Coding Scale 6 Independent with activity with or without an assistive device 5 Patient requires set up or clean up by helper. Patient completes activity by themselves 4 Supervision or touching assist (CGA). [place] provide cues , steadying assist 3 The helper provides less than half the effort to complete the activity 2 The helper provides more than half the effort to complete the activity 1 Dependent. The helper does all the effort to complete an activity 7 Patient refused to complete or attempt activity 9 The patient did not perform the activity before the current illness or injury 88 Not attempted due to Medical conditions or safety concerns Transfers (B, C, W/C) (FIM): 4 Sit to/from Stand: 4 Patient needs cues for safety during transfers, she will often let go of her walker and grab for other things in an unsafe manner. Gait Training Gait (FIM): 4 Distance: 150'x2 Gait Level of Assist: 4 Gait Persons Needed: 1 Gait Assistive Device: FWW Patient occasionally needs cues for obstacles on her right side, she shuffles a lot and needs cues for take bigger steps, she needs an occasional standing rest break, very slow ambulation. Exercises Patient needed a lot of encouragement to stay on the stepper, she wanted to quit several times. NuStep Minutes: 15 NuStep Workload: 5 Treatments transfers, ambulation, functional strengthening Assessment Current Status: Fair Progress Patient is making gains with ambulation, but she has poor motivation which could very well impact her rehab potential. PT Short Term Goals Short Term Goals Time Frame: Mar 01, 2017 Transfers (B,C,W/C) (FIM): 4 Gait (FIM): 4 Distance (FIM): 3=150 ft Gait Assistive Device: FWW Wheelchair Distance: 50' Stairs (FIM): 2 # of Steps: 4 PT Jail Goals Jail Goals PT Magnetic Prospector Goals Time Frame: March 15, 2017 Transfers (B,C,W/C) (FIM): 6 Sit to Lying (QC): 6 Lying-Sitting on Side/Bed(QC): 6 Sit to Stand (QC): 6 Rollin Roll Left to Right (QC): 6 Chair/Rci-xc-Dtamz Xfer(QC): 6 Car Transfer (QC): 5 Does the Patient Walk: Yes Gait (FIM): 6 Gait distance (FIM): 3=150 ft Walk 10 feet (QC): 6 Walk 10ft-Uneven Surface(QC): 6 Walk 50ft with 2 Turns (QC): 6 Walk 150 ft (QC): 6 Gait Level of Assist: 6 Gait Assistive Device: FWW Does the Pt use WC or Scooter?: No Stairs (FIM): 5 # of Steps: 8 1 Step (curb) (QC): 6 4 Steps (QC): 5 12 Steps (QC): 9 Stairs Level Of Assist: 6 Picking up an Object (QC): 4 PT Plan Problem List Problem List: Activity Tolerance, Functional Strength, Safety, Balance, Gait, Transfer, Bed Mobility Treatment/Plan Treatment Plan: Continue Plan of Care Treatment Plan: Bed Mobility, Education, Functional Activity [place], Functional Strength, Group Therapy, Gait, Safety, Therapeutic Exercise, Transfers Treatment Duration: March 15, 2017 Visits Per Week: 10-15 Minutes/Day (M-F): 60-90 Minutes/Day (Sat/Anders): prn Safety Risks/Education Patient Education: Gait Training, Transfer Techniques, Correct Positioning, Safety Issues Teaching Recipient: Patient Teaching Methods: Demonstration, Discussion Response to Teaching: Reinforcement Needed Time/GCodes Time In: 1100 Time Out: 1145 Total Billed Treatment Time: 45 Total Billed Treatment 1 visit GT 30 min EX 15 min RETA PENA PT Mar 01, 2017 11:45
--- NOTE | 2017-03-01 13:39 | Physical Therapy Daily Note ---
PT Daily Note-Current Subjective Agreeable. Spouse present during treatment. Transfers Functional [place] Measure 0=Not Assessed/NA 4=Minimal Assistance 1=Total Assistance 5=Supervision or Setup 2=Maximal Assistance 6=Modified [place] 3=Moderate Assistance 7=Complete IndependenceIRFPAI Quality Coding Scale 6 Independent with activity with or without an assistive device 5 Patient requires set up or clean up by helper. Patient completes activity by themselves 4 Supervision or touching assist (CGA). [place] provide cues , steadying assist 3 The helper provides less than half the effort to complete the activity 2 The helper provides more than half the effort to complete the activity 1 Dependent. The helper does all the effort to complete an activity 7 Patient refused to complete or attempt activity 9 The patient did not perform the activity before the current illness or injury 88 Not attempted due to Medical conditions or safety concerns Treatments Pt able to perform sit to from stand transfers with SBA but requires skilled verbal cues to reach back for chair before sitting down. Pt ambulated x 100 ft x 2 and 200 ft x 1 with FWW with SBA and 80% cues to increase step length--able to follow for a few steps then returns to short steps. Pt up in chair with chair alarm activited after treatment and spouse present. Assessment Pt's transfers and gait are progressing. Still needs near constant cues for step length. PT Short Term Goals Short Term Goals Time Frame: Mar 01, 2017 Transfers (B,C,W/C) (FIM): 4 (mt 03/01/17) Gait (FIM): 4 Distance (FIM): 3=150 ft Gait Assistive Device: FWW Wheelchair Distance: 50' Stairs (FIM): 2 # of Steps: 4 PT Crinkling Machine Operator Goals Fdc Goals PT Fdc Goals Time Frame: March 15, 2017 Transfers (B,C,W/C) (FIM): 6 Sit to Lying (QC): 6 Lying-Sitting on Side/Bed(QC): 6 Sit to Stand (QC): 6 Rollin Roll Left to Right (QC): 6 Chair/Wmd-zn-Ggcbo Xfer(QC): 6 Car Transfer (QC): 5 Does the Patient Walk: Yes Gait (FIM): 6 Gait distance (FIM): 3=150 ft Walk 10 feet (QC): 6 Walk 10ft-Uneven Surface(QC): 6 Walk 50ft with 2 Turns (QC): 6 Walk 150 ft (QC): 6 Gait Level of Assist: 6 Gait Assistive Device: FWW Does the Pt use WC or Scooter?: No Stairs (FIM): 5 # of Steps: 8 1 Step (curb) (QC): 6 4 Steps (QC): 5 12 Steps (QC): 9 Stairs Level Of Assist: 6 Picking up an Object (QC): 4 PT Plan Problem List Problem List: Activity Tolerance, Functional Strength, Safety, Gait, Transfer, Bed Mobility Treatment/Plan Treatment Plan: Continue Plan of Care Treatment Plan: Bed Mobility, Education, Functional Activity [place], Functional Strength, Group Therapy, Gait, Safety, Therapeutic Exercise, Transfers Treatment Duration: March 15, 2017 Visits Per Week: 10-15 Minutes/Day (M-F): 60-90 Minutes/Day (Sat/Anders): prn Safety Risks/Education Patient Education: Gait Training Teaching Recipient: Patient Teaching Methods: Demonstration, Discussion Response to Teaching: Reinforcement Needed Time/GCodes Time In: 1305 Time Out: 1330 Total Billed Treatment Time: 25 Total Billed Treatment visit GT 25 HUSSEIN JAMIL PT Mar 01, 2017 13:39
[2017-03-01 18:05] VITALS: BP 138/88
--- NOTE | 2017-03-01 19:24 | PM & R (SOAP) Progress Note ---
Subjective Subjective/Events-last exam Patient was seen in her room earlier today Patient SBA for Transfers and gait.Aphasia still significant Discussed case with RN and SW Patient on regular consistency solids with nectar thickened liquids SW indicates Patient family considering SNU placement for ongoing care and therapies Objective Exam Last Set of Vital Signs Vital Signs Date Time Temp Pulse Resp B/P (MAP) Pulse Ox O2 Delivery O2 Flow Rate FiO2 03/01/17 18:05 98.3 74 16 138/88 98 Room Air Capillary Refill : I&O Intake and Output 03/01/17 00:00 Intake Total 850 ml Balance 850 ml Intake Oral 850 ml # Voids 5 # Bowel Movements 1 General: Alert, Cooperative, No Acute Distress HEENT: Atraumatic, PERRLA, EOMI, Mucous Memb Moist/[place], Other (aphasic) Neck: Supple, No JVD Lungs: Clear to Auscultation Heart: Regular Rate Abdomen: Normal Bowel Sounds, Soft, No Tenderness Extremities: No Edema Neuro: Other (rt HP and aphasia) Assessment/Plan Assessment 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
[2017-03-01] MEDS: SIMvastatin 40 MG (ZOCOR) TAB PO SCH (20:42)
[2017-03-01] MEDS: LATANOPROST 0.005% (XALATAN) OPHTH SOLN 2.5 ML OD SCH (20:45)
[2017-03-02 06:00] VITALS: BP 137/81
[2017-03-02] MEDS: LEVOTHYROXINE 75 MCG (LEVOTHROID) TABLET PO SCH (06:04)
[2017-03-02 08:09] VITALS: BP 135/78
[2017-03-02] MEDS: FOLIC ACID 1 MG TAB PO SCH ×2 (08:10→20:42)
[2017-03-02] MEDS: lisINopril 10 MG (PRINIVIL) TAB PO SCH (08:10)
[2017-03-02] MEDS: CYCLOPENTOLATE 1% (CYCLOGYL) 2 ML DROPS OD SCH (08:10)
[2017-03-02] MEDS: ATENOLOL 25 MG (TENORMIN) TAB PO SCH (08:10)
[2017-03-02] MEDS: DIGOXIN 0.125 MG (LANOXIN) TAB PO SCH (08:10)
[2017-03-02] MEDS: PANTOPRAZOLE 20 MG TABLET (PROTONIX) PO SCH ×2 (08:10→20:43)
[2017-03-02] MEDS: GABAPENTIN 300 MG (NEURONTIN) CAP PO SCH ×2 (08:10→20:43)
[2017-03-02] MEDS: APIXABAN 5 MG (ELIQUIS) TABLET PO SCH ×2 (08:10→20:43)
[2017-03-02] MEDS: prednisoLONE 1% OPTH (PRED FORTE) 5 ML BTL OD SCH ×4 (08:11→20:46)
[2017-03-02] MEDS: TIMOLOL MALEATE 0.5% 5 ML (TIMOPTIC) BTL OU SCH ×2 (08:12→20:44)
[2017-03-02] MEDS: BRIMONIDINE 0.2% (ALPHAGAN) OPHTH SOLN 5 ML BTL OU SCH ×3 (08:12→20:42)
--- NOTE | 2017-03-02 10:03 | Speech Therapy Daily Note ---
Speech Daily Progress Note Subjective The patient was sitting upright in her recliner upon entrance. The patient greeted the clinician with a smile, however, no verbalizations on this date. The patient is consistently making and keeping more consistent eye contact throughout daily sessions. The patient agreed to participate in dysphagia, speech, and language treatment with a head nod. Objective Automatic Phrases: The patient demonstrated consistent accuracy with appropriateness to common questions and phrases. The patient stated, "I hope so, " "thank you," in response to questions poised by the clinician. Automatics: The patient was unable to state the days of the week or count to five with maximum clinician verbal prompting and phonemic cues. Confrontational Naming (objects and pictures): The patient was unable to state the name of common ADL objects (brush, toothbrush, cup) or pictures with maximum clinician verbal prompts including phonemic cues, functional use, or field of two. The patient did repeat the initial phoneme of brush following clinician example. PO Bolus Trials: The patient was re-evaluated with thin liquids on this date ( via ice chip, teaspoon, and cup sip). No signs/symptoms of aspiration were demonstrated with ice chips or teaspoon trials of thin liquid. The patient demonstrated a delayed throat clear and cough following two of five cup sips of thin liquid. Assessment Assessment Current Status: Fair Progress Treatment Plan Continue Plan of Care Communication Comprehension: 2 Expression: 1 Social Cognition Social Interaction: 1 Problem Solvin Memory: 1 Speech Short Term Goals Short Term Goals Short Term Goals 1. The patient will demonstrate swallowing strategies with 80% accuracy and mild clinician verbal cueing. PROGRESSING 2. The patient will demonstrate dysphagia strengthening exercises with 80% accuracy and mild clinician verbal cueing. PROGRESSING 3. The patient will repeat single, bilabial phonemes with 80% accuracy and maximum clinician verbal cueing. NOT PROGRESSING 4. The patient will identify common objects in a field of two. NOT PROGRESSING 5. The patient will display 80% accuracy with simple yes/no questions through pointing, head nods, or verbalizations. PROGRESSING (02/18/17) Time Frame-STG: Four Weeks Speech Penitentiary Goals Penitentiary Goals 1. The patient will tolerate the least restrictive diet without signs/symptoms of aspiration or laryngeal penetration. 2. The patient will demonstrate improved expressive and receptive language for increased function and safety with ADL's in the least restrictive setting. Time Frame: Four Weeks Comprehension: 3 Expression: 2 Social Interaction: 3 Problem Solvin Memory: 2 Speech-Plan Treatment Plan Speech Therapy Treatment Plan: Continue Plan of Care Continue skilled speech pathology intervention to target functional communication and swallowing safety. Treatment Duration: March 15, 2017 # of days/week Five Visits Per Week: Five Minutes/Day (M-F): 30 Rehab Potential: Fair Safety Risks/Education Teaching Recipient: Patient Teaching Methods: Demonstration, Discussion Response to Teaching: Unable to Return Demonstration Education Topics Provided: Swallowing Strategies, Orientation External Aides, Bilabial Single Syllable Practice Sheet Time Speech Therapy Time In: 09:15 Speech Therapy Time Out: 09:45 Total Billed Time: 30 Billed Treatment Time 1, RHETT 1, DYST MATTHIEU SALMON Mar 02, 2017 10:03
--- NOTE | 2017-03-02 10:47 | Physical Therapy Daily Note ---
PT Daily Note-Current Subjective Patient in recliner pre tx, agrees to PT, no complaints of pain. Appearance Patient in recliner post tx with nurse call, tray, chair alarm on, all needs met. Mental Status Patient Orientation: Unable to Assess Transfers Functional [place] Measure 0=Not Assessed/NA 4=Minimal Assistance 1=Total Assistance 5=Supervision or Setup 2=Maximal Assistance 6=Modified [place] 3=Moderate Assistance 7=Complete IndependenceIRFPAI Quality Coding Scale 6 Independent with activity with or without an assistive device 5 Patient requires set up or clean up by helper. Patient completes activity by themselves 4 Supervision or touching assist (CGA). [place] provide cues , steadying assist 3 The helper provides less than half the effort to complete the activity 2 The helper provides more than half the effort to complete the activity 1 Dependent. The helper does all the effort to complete an activity 7 Patient refused to complete or attempt activity 9 The patient did not perform the activity before the current illness or injury 88 Not attempted due to Medical conditions or safety concerns Transfers (B, C, W/C) (FIM): 4 Sit to/from Stand: 4 CGA, cues for safety and hand placement, patient will often let go of walker for transfers and hang onto other objects Gait Training Gait (FIM): 4 Distance: 150'x2 Gait Level of Assist: 4 (CGA) Gait Assistive Device: FWW Very slow, shuffling steps, cues for obstacles and direction. Stair Training Stair Training: Handrails/: uses walker Stairs (FIM): 1 #of Steps: 1 Stairs: Pattern: Step to Level of Assist: 4 (CGA) Exercises Patient ambulated 20 feet and went up and down 1 step, three times. NuStep Minutes: 10 NuStep Workload: 5 Treatments steps, ambulation, transfers, functional strengthening Assessment Current Status: Fair Progress Patient was very fatigued after tx, poor endurance. PT Short Term Goals Short Term Goals Time Frame: Mar 01, 2017 Transfers (B,C,W/C) (FIM): 4 (mt 03/01/17) Gait (FIM): 4 Distance (FIM): 3=150 ft Gait Assistive Device: FWW Wheelchair Distance: 50' Stairs (FIM): 2 # of Steps: 4 PT Chcf Goals Chcf Goals PT Ticket Collector Goals Time Frame: March 15, 2017 Transfers (B,C,W/C) (FIM): 6 Sit to Lying (QC): 6 Lying-Sitting on Side/Bed(QC): 6 Sit to Stand (QC): 6 Rollin Roll Left to Right (QC): 6 Chair/Mnh-oy-Tqzyn Xfer(QC): 6 Car Transfer (QC): 5 Does the Patient Walk: Yes Gait (FIM): 6 Gait distance (FIM): 3=150 ft Walk 10 feet (QC): 6 Walk 10ft-Uneven Surface(QC): 6 Walk 50ft with 2 Turns (QC): 6 Walk 150 ft (QC): 6 Gait Level of Assist: 6 Gait Assistive Device: FWW Does the Pt use WC or Scooter?: No Stairs (FIM): 5 # of Steps: 8 1 Step (curb) (QC): 6 4 Steps (QC): 5 12 Steps (QC): 9 Stairs Level Of Assist: 6 Picking up an Object (QC): 4 PT Plan Problem List Problem List: Activity Tolerance, Functional Strength, Safety, Balance, Gait, Transfer, Bed Mobility Treatment/Plan Treatment Plan: Continue Plan of Care Treatment Plan: Bed Mobility, Education, Functional Activity [place], Functional Strength, Group Therapy, Gait, Safety, Therapeutic Exercise, Transfers Treatment Duration: March 15, 2017 Visits Per Week: 10-15 Minutes/Day (M-F): 60-90 Minutes/Day (Sat/Anders): prn Safety Risks/Education Patient Education: Gait Training, Transfer Techniques, Steps, Safety Issues Teaching Recipient: Patient Teaching Methods: Demonstration, Discussion Response to Teaching: Reinforcement Needed Time/GCodes Time In: 1000 Time Out: 1045 Total Billed Treatment Time: 45 Total Billed Treatment 1 visit EX 10 min GT 20 min FA 15 min RETA PENA PT Mar 02, 2017 10:47
--- NOTE | 2017-03-02 11:01 | Occupational Ther Daily Note ---
OT Current Status-Daily Note Subjective Pt alert, in bathroom with nrsg. Pt agreed to therapy. No c/o pain. Mental Status/Objective Patient Orientation: Person, Place, Non-Verbal/Aphasic, Time, Situation Functional [place] Measure 0=Not Assessed/NA 4=Minimal Assistance 1=Total Assistance 5=Supervision or Setup 2=Maximal Assistance 6=Modified [place] 3=Moderate Assistance 7=Complete [place] ADL-Treatment Pt chose what to wear for the day. RODNEY gave pt clothes and pt was able to don upper\lower body clothing by self. Then ambulated to bathroom and completed grooming with only 1 cue to find hair brush on right side of sink. Pt was able to set own oral care up by self. Then pt ambulated to therapy gym with SBA using FWW and back. Pt then requested to go to the bathroom and completed toileting hygiene with SBA. After therapy, pt sitting in recliner with call light/phone in reach. All needs met in room. Functional [place] Measure 0=Not Assessed/NA 4=Minimal Assistance 1=Total Assistance 5=Supervision or Setup 2=Maximal Assistance 6=Modified [place] 3=Moderate Assistance 7=Complete IndependenceIRFPAI Quality Coding Scale 6 Independent with activity with or without an assistive device 5 Patient requires set up or clean up by helper. Patient completes activity by themselves 4 Supervision or touching assist (CGA). [place] provide cues , steadying assist 3 The helper provides less than half the effort to complete the activity 2 The helper provides more than half the effort to complete the activity 1 Dependent. The helper does all the effort to complete an activity 7 Patient refused to complete or attempt activity 9 The patient did not perform the activity before the current illness or injury 88 Not attempted due to Medical conditions or safety concerns Grooming (FIM): 5 Upper Body (FIM): 5 Lower Body Dressing (FIM): 5 Toileting (FIM): 5 Transfers (B, C, W/C) (FIM): 5 Toilet/Commode Transfer (FIM): 5 Other Treatment Pt worked on visual perceptual tasks with fine motor components. Pt was able to manipulate pieces without difficulty with B hands. Pt had difficulty with copying from model and placing pieces in correct spots. OT Short Term Goals Short Term Goals Time Frame: Mar 01, 2017 Eating(FIM): 5 Grooming(FIM): 5 Bathing(FIM): 4 Upper Body Dressing(FIM): 4 Lower Body Dressing(FIM): 4 Toileting(FIM): 4 Transfers (B,C,W/C) (FIM): 4 (mt 03/01/17) Toilet/Commode Transfer(FIM): 4 Shower Transfer(FIM): 4 Additional Short Term Goals: 2-Verbalize Understanding, 3-ImproveStrength/[place] 1=Demonstrate adherence to instructed precautions during ADL tasks. 2=Patient will verbalize/demonstrate understanding of assistive devices/ modifications for ADL. 3=Patient will improve strength/tolerance for activity to enable patient to perform ADL's. OT Residential Goals Door To Door Fundraising Collector Goals Time Frame: March 15, 2017 Eating (FIM): 6 Eating (QC): 6 Groomin Oral Hygiene (QC): 6 Bathing(FIM): 5 Shower/Bathe Self (QC): 5 Upper Body Dressing(FIM): 5 Upper Body Dressing (QC): 5 Lower Body Dressing(FIM): 5 Lower Body Dressing (QC): 5 On/Off Footwear (QC): 5 Toileting(FIM): 6 Toileting Hygiene (QC): 6 Toilet/Commode Transfer(FIM): 6 Toilet/Commode Transfer (QC): 6 Shower Transfer(FIM): 6 Comprehension(FIM): 3 Expression (FIM): 2 Social Interaction(FIM): 3 Problem Solving(FIM): 2 Memory(FIM): 2 Additional Goals: 2-Verbalize Understanding, 3-ImproveStrength/[place] 1=Demonstrate adherence to instructed precautions during ADL tasks. 2=Patient will verbalize/demonstrate understanding of assistive devices/ modifications for ADL. 3=Patient will improve strength/tolerance for activity to enable patient to perform ADL's. OT Education/Plan Problem List/Assessment Pt would benefit from skilled OT to increase her independence in basic self care to allow her to return home safely with family and to decrease caregiver burden Discharge Recommendations Plan/Recommendations: Continue POC Treatment Plan/Plan of Care Patient would benefit from OT for education, treatment and training to promote independence in ADL's, mobility, safety and/or upper extremity function for ADL' s. Plan of Care: ADL Retraining, Functional Mobility, Group Exercise/Act as Ind ( education, exercise, functional acitivities, communication, memory, problem solving), UE Funct Exercise/Act, UE Neuromus Re-Ed/Coord, Visual/Perceptual Retrain Treatment Duration: March 15, 2017 Visits Per Week: 10-11 Minutes/Day (M-F): 75-90 Minutes/Day (Sat/Anders): PRN Agreement: Yes Rehab Potential: Fair Time/GCodes Start Time: 08:15 Stop Time: 09:30 Total Time Billed (hr/min): 75 Billed Treatment Time 1 visit-ADL 4 (60 min) NM (15 min) HUSSEIN PERDOMO Mar 02, 2017 11:01
--- NOTE | 2017-03-02 11:28 | PM & R (SOAP) Progress Note ---
Subjective Subjective/Events-last exam Patient was seen in her room this AM Sppech improving as well as endurance and mobility Objective Exam Last Set of Vital Signs Vital Signs Date Time Temp Pulse Resp B/P (MAP) Pulse Ox O2 Delivery O2 Flow Rate FiO2 03/02/17 09:36 Room Air 03/02/17 08:09 89 135/78 03/02/17 06:00 98.9 16 97 Capillary Refill : I&O Intake and Output 03/02/17 00:00 Intake Total 860 ml Balance 860 ml Intake Oral 860 ml # Voids 6 General: Alert, Cooperative, No Acute Distress HEENT: Atraumatic, PERRLA, EOMI, Mucous Memb Moist/[employer], Other (aphasic) Neck: Supple, No JVD Lungs: Clear to Auscultation Heart: Regular Rate Abdomen: Normal Bowel Sounds, Soft, No Tenderness Extremities: No Edema Neuro: Other (rt HP and aphasia) Assessment/Plan Assessment 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
--- NOTE | 2017-03-02 11:53 | Occupational Ther Daily Note ---
OT Current Status-Daily Note Subjective Pt alert, sitting in recliner eating lunch. Pt agreed to therapy. No c/o pain. Mental Status/Objective Functional [place] Measure 0=Not Assessed/NA 4=Minimal Assistance 1=Total Assistance 5=Supervision or Setup 2=Maximal Assistance 6=Modified [place] 3=Moderate Assistance 7=Complete [place] ADL-Treatment Functional [place] Measure 0=Not Assessed/NA 4=Minimal Assistance 1=Total Assistance 5=Supervision or Setup 2=Maximal Assistance 6=Modified [place] 3=Moderate Assistance 7=Complete IndependenceIRFPAI Quality Coding Scale 6 Independent with activity with or without an assistive device 5 Patient requires set up or clean up by helper. Patient completes activity by themselves 4 Supervision or touching assist (CGA). [place] provide cues , steadying assist 3 The helper provides less than half the effort to complete the activity 2 The helper provides more than half the effort to complete the activity 1 Dependent. The helper does all the effort to complete an activity 7 Patient refused to complete or attempt activity 9 The patient did not perform the activity before the current illness or injury 88 Not attempted due to Medical conditions or safety concerns Other Treatment Pt was eating lunch by self. RASHAUN discussed with pt goals for therapy and what pt was working on to be safe at home. Pt has demonstrated improvement with daily functional tasks and is requiring less verbal and physical cues to initiate tasks. Pt is inconsistent throughout day with skills and fatigues easily. After therapy, pt sitting in recliner finishing lunch. All needs met in room. OT Short Term Goals Short Term Goals Time Frame: Mar 01, 2017 Eating(FIM): 5 Grooming(FIM): 5 Bathing(FIM): 4 Upper Body Dressing(FIM): 4 Lower Body Dressing(FIM): 4 Toileting(FIM): 4 Transfers (B,C,W/C) (FIM): 4 (mt 03/01/17) Toilet/Commode Transfer(FIM): 4 Shower Transfer(FIM): 4 Additional Short Term Goals: 2-Verbalize Understanding, 3-ImproveStrength/[place] 1=Demonstrate adherence to instructed precautions during ADL tasks. 2=Patient will verbalize/demonstrate understanding of assistive devices/ modifications for ADL. 3=Patient will improve strength/tolerance for activity to enable patient to perform ADL's. OT Bailing Machine Operator Goals Bailing Machine Operator Goals Time Frame: March 15, 2017 Eating (FIM): 6 Eating (QC): 6 Groomin Oral Hygiene (QC): 6 Bathing(FIM): 5 Shower/Bathe Self (QC): 5 Upper Body Dressing(FIM): 5 Upper Body Dressing (QC): 5 Lower Body Dressing(FIM): 5 Lower Body Dressing (QC): 5 On/Off Footwear (QC): 5 Toileting(FIM): 6 Toileting Hygiene (QC): 6 Toilet/Commode Transfer(FIM): 6 Toilet/Commode Transfer (QC): 6 Shower Transfer(FIM): 6 Comprehension(FIM): 3 Expression (FIM): 2 Social Interaction(FIM): 3 Problem Solving(FIM): 2 Memory(FIM): 2 Additional Goals: 2-Verbalize Understanding, 3-ImproveStrength/[place] 1=Demonstrate adherence to instructed precautions during ADL tasks. 2=Patient will verbalize/demonstrate understanding of assistive devices/ modifications for ADL. 3=Patient will improve strength/tolerance for activity to enable patient to perform ADL's. OT Education/Plan Problem List/Assessment Pt would benefit from skilled OT to increase her independence in basic self care to allow her to return home safely with family and to decrease caregiver burden Discharge Recommendations Plan/Recommendations: Continue POC Treatment Plan/Plan of Care Patient would benefit from OT for education, treatment and training to promote independence in ADL's, mobility, safety and/or upper extremity function for ADL' s. Plan of Care: ADL Retraining, Functional Mobility, Group Exercise/Act as Ind ( education, exercise, functional acitivities, communication, memory, problem solving), UE Funct Exercise/Act, UE Neuromus Re-Ed/Coord, Visual/Perceptual Retrain Treatment Duration: March 15, 2017 Visits Per Week: 10-11 Minutes/Day (M-F): 75-90 Minutes/Day (Sat/Anders): PRN Agreement: Yes Rehab Potential: Fair Time/GCodes Start Time: 11:30 Stop Time: 11:45 Total Time Billed (hr/min): 15 Billed Treatment Time 1 visit-FA (15 min) HUSSEIN PERDOMO Mar 02, 2017 11:53
--- NOTE | 2017-03-02 14:47 | Physical Therapy Daily Note ---
PT Daily Note-Current Subjective Patient in recliner pre tx, agrees to PT, no complaints of pain. Appearance Patient in recliner post tx with nurse call, phone, tray, all needs met. Patient was pretty frustrated about not being able to to talk on the phone, she received a call. Mental Status Patient Orientation: Unable to Assess Transfers Functional [place] Measure 0=Not Assessed/NA 4=Minimal Assistance 1=Total Assistance 5=Supervision or Setup 2=Maximal Assistance 6=Modified [place] 3=Moderate Assistance 7=Complete IndependenceIRFPAI Quality Coding Scale 6 Independent with activity with or without an assistive device 5 Patient requires set up or clean up by helper. Patient completes activity by themselves 4 Supervision or touching assist (CGA). [place] provide cues , steadying assist 3 The helper provides less than half the effort to complete the activity 2 The helper provides more than half the effort to complete the activity 1 Dependent. The helper does all the effort to complete an activity 7 Patient refused to complete or attempt activity 9 The patient did not perform the activity before the current illness or injury 88 Not attempted due to Medical conditions or safety concerns Transfers (B, C, W/C) (FIM): 5 Sit to/from Stand: 5 Bed to/from Chair: 5 cues for safety and hand placement Gait Training Gait (FIM): 5 Distance: 150'x2 Gait Level of Assist: 5 Gait Persons Needed: 1 Gait Assistive Device: FWW cues for direction and obstacles, patient ambulates very slowly, takes multiple standing rest breaks Exercises Seated Therapy Exercises: Ankle pumps, Long arc quads, Hip flexion, Hip abd/add Seated Reps: 20 Treatments transfers, ambulation, functional strengthening Assessment Current Status: Fair Progress Patient does not always understand directions and may need tactile cues. PT Short Term Goals Short Term Goals Time Frame: Mar 01, 2017 Transfers (B,C,W/C) (FIM): 4 (mt 03/01/17) Gait (FIM): 4 Distance (FIM): 3=150 ft Gait Assistive Device: FWW Wheelchair Distance: 50' Stairs (FIM): 2 # of Steps: 4 PT Custodial Goals Custodial Goals PT Custodial Goals Time Frame: March 15, 2017 Transfers (B,C,W/C) (FIM): 6 Sit to Lying (QC): 6 Lying-Sitting on Side/Bed(QC): 6 Sit to Stand (QC): 6 Rollin Roll Left to Right (QC): 6 Chair/[id number] Xfer(QC): 6 Car Transfer (QC): 5 Does the Patient Walk: Yes Gait (FIM): 6 Gait distance (FIM): 3=150 ft Walk 10 feet (QC): 6 Walk 10ft-Uneven Surface(QC): 6 Walk 50ft with 2 Turns (QC): 6 Walk 150 ft (QC): 6 Gait Level of Assist: 6 Gait Assistive Device: FWW Does the Pt use WC or Scooter?: No Stairs (FIM): 5 # of Steps: 8 1 Step (curb) (QC): 6 4 Steps (QC): 5 12 Steps (QC): 9 Stairs Level Of Assist: 6 Picking up an Object (QC): 4 PT Plan Problem List Problem List: Activity Tolerance, Functional Strength, Safety, Balance, Gait, Transfer, Bed Mobility Treatment/Plan Treatment Plan: Continue Plan of Care Treatment Plan: Bed Mobility, Education, Functional Activity [place], Functional Strength, Group Therapy, Gait, Safety, Therapeutic Exercise, Transfers Treatment Duration: March 15, 2017 Visits Per Week: 10-15 Minutes/Day (M-F): 60-90 Minutes/Day (Sat/Anders): prn Safety Risks/Education Patient Education: Gait Training, Transfer Techniques, Correct Positioning, Safety Issues Teaching Recipient: Patient Teaching Methods: Demonstration, Discussion Response to Teaching: Reinforcement Needed Time/GCodes Time In: 1400 Time Out: 1430 Total Billed Treatment Time: 30 Total Billed Treatment 1 visit GT 20 min EX 10 min RETA PENA PT Mar 02, 2017 14:47
[2017-03-02 18:11] VITALS: BP 148/92
[2017-03-02] MEDS: SIMvastatin 40 MG (ZOCOR) TAB PO SCH (20:42)
[2017-03-02] MEDS: LATANOPROST 0.005% (XALATAN) OPHTH SOLN 2.5 ML OD SCH (20:45)
[2017-03-03 05:08] VITALS: BP 135/84
[2017-03-03] MEDS: LEVOTHYROXINE 75 MCG (LEVOTHROID) TABLET PO SCH (06:41)
[2017-03-03 08:17] VITALS: BP 129/70
[2017-03-03] MEDS: lisINopril 10 MG (PRINIVIL) TAB PO SCH (08:20)
[2017-03-03] MEDS: FOLIC ACID 1 MG TAB PO SCH ×2 (08:20→20:11)
[2017-03-03] MEDS: GABAPENTIN 300 MG (NEURONTIN) CAP PO SCH ×2 (08:20→20:11)
[2017-03-03] MEDS: PANTOPRAZOLE 20 MG TABLET (PROTONIX) PO SCH ×2 (08:20→20:11)
[2017-03-03] MEDS: CYCLOPENTOLATE 1% (CYCLOGYL) 2 ML DROPS OD SCH (08:20)
[2017-03-03] MEDS: ATENOLOL 25 MG (TENORMIN) TAB PO SCH (08:20)
[2017-03-03] MEDS: DIGOXIN 0.125 MG (LANOXIN) TAB PO SCH (08:20)
[2017-03-03] MEDS: APIXABAN 5 MG (ELIQUIS) TABLET PO SCH ×2 (08:20→20:11)
[2017-03-03] MEDS: BRIMONIDINE 0.2% (ALPHAGAN) OPHTH SOLN 5 ML BTL OU SCH ×3 (08:21→20:12)
[2017-03-03] MEDS: prednisoLONE 1% OPTH (PRED FORTE) 5 ML BTL OD SCH ×4 (08:21→20:12)
[2017-03-03] MEDS: TIMOLOL MALEATE 0.5% 5 ML (TIMOPTIC) BTL OU SCH ×2 (08:21→20:12)
--- NOTE | 2017-03-03 10:00 | Occupational Ther Daily Note ---
OT Current Status-Daily Note Subjective Pt alert, sitting in recliner. Nrsg present in room. Pt agreed to therapy. No c/o pain at this time. Mental Status/Objective Patient Orientation: Person, Place, Non-Verbal/Aphasic, Time, Situation Functional [place] Measure 0=Not Assessed/NA 4=Minimal Assistance 1=Total Assistance 5=Supervision or Setup 2=Maximal Assistance 6=Modified [place] 3=Moderate Assistance 7=Complete [place] ADL-Treatment Functional [place] Measure 0=Not Assessed/NA 4=Minimal Assistance 1=Total Assistance 5=Supervision or Setup 2=Maximal Assistance 6=Modified [place] 3=Moderate Assistance 7=Complete IndependenceIRFPAI Quality Coding Scale 6 Independent with activity with or without an assistive device 5 Patient requires set up or clean up by helper. Patient completes activity by themselves 4 Supervision or touching assist (CGA). [place] provide cues , steadying assist 3 The helper provides less than half the effort to complete the activity 2 The helper provides more than half the effort to complete the activity 1 Dependent. The helper does all the effort to complete an activity 7 Patient refused to complete or attempt activity 9 The patient did not perform the activity before the current illness or injury 88 Not attempted due to Medical conditions or safety concerns Bathing (FIM): 5 (Using shower bench, hand held shower and grabbars pt was able to bathe self with SBA. Pt stood throughout shower using grabbars for safety. pt required assist to turn on water and apply soap to wash cloth.) Bathing Location: L Arm, R Arm, L Upper Leg, R Upper Leg, L Lower Leg ( including foot), R Lower Leg (including foot), Chest, Abdomen, Buttocks, Perineal Area Upper Body (FIM): 5 (After set up, pt is able to complete. Pt was able to state what she wanted to wear today.) Lower Body Dressing (FIM): 3 (Pt fatigued easily today and had difficulty with donning pants, briefs and socks over feet today. Pt was able to pull pants up legs and hike over hips with SBA.) Transfers (B, C, W/C) (FIM): 4 (Pt required assistance to position hands in correct place then pt was able to complete transfer with SBA.) Shower Transfer(FIM): 5 (Using grabbars, FWW and shower bench pt was able to complete shower transfer with SBA. Pt was able to problem solve the transfer without cues.) Pt demonstrated more self initiation today. She would get 'stuck' and ask what to do next. RODNEY directed the question back to pt then pt was able to problem solve. Other Treatment Pt transferred back to recliner in room. Pt worked on fine motor and visual perceptual skills. Able to trace name then stated name. Pt has difficulty with forming letters of name without tracing. Pt had difficulty finding similar picture on visual perceptual task when on R side. Pt unable to find identified pictures when shown. After therapy, pt sitting in recliner with call light/phone in reach. SMASH HAND and nrsg student in room with pt. All needs met in room. OT Short Term Goals Short Term Goals Time Frame: Mar 01, 2017 Eating(FIM): 5 Grooming(FIM): 5 Bathing(FIM): 4 Upper Body Dressing(FIM): 4 Lower Body Dressing(FIM): 4 Toileting(FIM): 4 Transfers (B,C,W/C) (FIM): 4 (mt 03/01/17) Toilet/Commode Transfer(FIM): 4 Shower Transfer(FIM): 4 Additional Short Term Goals: 2-Verbalize Understanding, 3-ImproveStrength/[place] 1=Demonstrate adherence to instructed precautions during ADL tasks. 2=Patient will verbalize/demonstrate understanding of assistive devices/ modifications for ADL. 3=Patient will improve strength/tolerance for activity to enable patient to perform ADL's. OT Perforator Typist Goals Perforator Typist Goals Time Frame: March 15, 2017 Eating (FIM): 6 Eating (QC): 6 Groomin Oral Hygiene (QC): 6 Bathing(FIM): 5 Shower/Bathe Self (QC): 5 Upper Body Dressing(FIM): 5 Upper Body Dressing (QC): 5 Lower Body Dressing(FIM): 5 Lower Body Dressing (QC): 5 On/Off Footwear (QC): 5 Toileting(FIM): 6 Toileting Hygiene (QC): 6 Toilet/Commode Transfer(FIM): 6 Toilet/Commode Transfer (QC): 6 Shower Transfer(FIM): 6 Comprehension(FIM): 3 Expression (FIM): 2 Social Interaction(FIM): 3 Problem Solving(FIM): 2 Memory(FIM): 2 Additional Goals: 2-Verbalize Understanding, 3-ImproveStrength/[place] 1=Demonstrate adherence to instructed precautions during ADL tasks. 2=Patient will verbalize/demonstrate understanding of assistive devices/ modifications for ADL. 3=Patient will improve strength/tolerance for activity to enable patient to perform ADL's. OT Education/Plan Problem List/Assessment Pt would benefit from skilled OT to increase her independence in basic self care to allow her to return home safely with family and to decrease caregiver burden Discharge Recommendations Plan/Recommendations: Continue POC Treatment Plan/Plan of Care Patient would benefit from OT for education, treatment and training to promote independence in ADL's, mobility, safety and/or upper extremity function for ADL' s. Plan of Care: ADL Retraining, Functional Mobility, Group Exercise/Act as Ind ( education, exercise, functional acitivities, communication, memory, problem solving), UE Funct Exercise/Act, UE Neuromus Re-Ed/Coord, Visual/Perceptual Retrain Treatment Duration: March 15, 2017 Visits Per Week: 10-11 Minutes/Day (M-F): 75-90 Minutes/Day (Sat/Anders): PRN Agreement: Yes Rehab Potential: Fair Time/GCodes Start Time: 08:15 Stop Time: 09:30 Total Time Billed (hr/min): 75 Billed Treatment Time 1 visit-ADL 4 (60 min) NM 1 (15 min) HUSSEIN PERDOMO Mar 03, 2017 10:00
--- NOTE | 2017-03-03 10:36 | PM & R (SOAP) Progress Note ---
Subjective Subjective/Events-last exam Patient was seen in her room this AM Patient SBA for transfers Objective Exam Last Set of Vital Signs Vital Signs Date Time Temp Pulse Resp B/P (MAP) Pulse Ox O2 Delivery O2 Flow Rate FiO2 03/03/17 09:00 Room Air 03/03/17 08:17 75 129/70 03/03/17 05:08 98.0 16 96 Capillary Refill : I&O Intake and Output 03/03/17 00:00 Intake Total 900 ml Balance 900 ml Intake Oral 900 ml # Voids 6 # Bowel Movements 2 General: Alert, Cooperative, No Acute Distress HEENT: Atraumatic, PERRLA, EOMI, Mucous Memb Moist/[place], Other (aphasic) Neck: Supple, No JVD Lungs: Clear to Auscultation Heart: Regular Rate Abdomen: Normal Bowel Sounds, Soft, No Tenderness Extremities: No Edema Neuro: Other (rt HP and aphasia) Assessment/Plan Assessment 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
--- NOTE | 2017-03-03 10:52 | Speech Therapy Daily Note ---
Speech Daily Progress Note Subjective The patient was sitting upright in her recliner upon entrance. The patient greeted the clinician with a smile, however, no verbalizations on this date. The patient agreed to participate in speech and language treatment via head nod (yes). Objective Automatic Phrases: The patient demonstrated consistent appropriateness to common questions and phrases (automatic responses). The patient stated, "pretty good" and "I hope so." Confrontational Naming (objects): The patient was unable to state the name of common ADL objects (brush, pen, cup) with maximum clinician verbal prompts including phonemic cues, functional use, or field of two. The patient was able to demonstrate the use of a brush with maximum clinician cueing (including modeling). Yes/No: The patient demonstrated reduced accuracy with yes/no questions on this date. The patient's reduced accuracy may be secondary to fatigue, as she appeared more lethargic on this date. The patient displayed 50% accuracy (+4/8) which is a reduction from 80% accuracy during prior sessions. Repetition: The patient was unable to repeat single phonemes or single words ( including name) on this date. Assessment Assessment Current Status: Fair Progress Treatment Plan Continue Plan of Care Communication Comprehension: 2 Expression: 1 Social Cognition Social Interaction: 1 Problem Solvin Memory: 1 Speech Short Term Goals Short Term Goals Short Term Goals 1. The patient will demonstrate swallowing strategies with 80% accuracy and mild clinician verbal cueing. PROGRESSING 2. The patient will demonstrate dysphagia strengthening exercises with 80% accuracy and mild clinician verbal cueing. PROGRESSING 3. The patient will repeat single, bilabial phonemes with 80% accuracy and maximum clinician verbal cueing. NOT PROGRESSING 4. The patient will identify common objects in a field of two. NOT PROGRESSING 5. The patient will display 80% accuracy with simple yes/no questions through pointing, head nods, or verbalizations. PROGRESSING (02/18/17) Time Frame-STG: Four Weeks Speech Skilled Nursing Goals Skilled Nursing Goals 1. The patient will tolerate the least restrictive diet without signs/symptoms of aspiration or laryngeal penetration. 2. The patient will demonstrate improved expressive and receptive language for increased function and safety with ADL's in the least restrictive setting. Time Frame: Four Weeks Comprehension: 3 Expression: 2 Social Interaction: 3 Problem Solvin Memory: 2 Speech-Plan Treatment Plan Speech Therapy Treatment Plan: Continue Plan of Care Continue skilled speech pathology to target functional expressive and receptive communication. Treatment Duration: March 15, 2017 # of days/week Five. Visits Per Week: Five Minutes/Day (M-F): 30 Rehab Potential: Fair Safety Risks/Education Teaching Recipient: Patient Teaching Methods: Demonstration, Discussion Response to Teaching: Unable to Return Demonstration Education Topics Provided: Orientation Strategies, Functional Use of Objects Time Speech Therapy Time In: 09:30 Speech Therapy Time Out: 10:00 Total Billed Time: 30 Billed Treatment Time 1, MATTHIEU BRAVO Mar 03, 2017 10:52
--- NOTE | 2017-03-03 11:00 | Physical Therapy Daily Note ---
PT Daily Note-Current Subjective Pt.attempts to verbalize many times. Needs verbal and demonstrations to follow the ex etc and Rx etc. Pain Location: No Pain Reported Mental Status Patient Orientation: Non-Verbal/Aphasic Transfers Functional [place] Measure 0=Not Assessed/NA 4=Minimal Assistance 1=Total Assistance 5=Supervision or Setup 2=Maximal Assistance 6=Modified [place] 3=Moderate Assistance 7=Complete IndependenceIRFPAI Quality Coding Scale 6 Independent with activity with or without an assistive device 5 Patient requires set up or clean up by helper. Patient completes activity by themselves 4 Supervision or touching assist (CGA). [place] provide cues , steadying assist 3 The helper provides less than half the effort to complete the activity 2 The helper provides more than half the effort to complete the activity 1 Dependent. The helper does all the effort to complete an activity 7 Patient refused to complete or attempt activity 9 The patient did not perform the activity before the current illness or injury 88 Not attempted due to Medical conditions or safety concerns Transfers (B, C, W/C) (FIM): 4 Scootin Rollin Supine to/from Sit: 4 (tactile instruction and guidance to roll for sup to side to sit) Bed to/from Chair: 4 Gait Training Does the Patient Walk?: Yes Gait (FIM): 4 Distance (FIM): 3=150 ft (150x2) Gait Level of Assist: 4 Gait Persons Needed: 1 Gait Assistive Device: FWW greatly decreased step length Rfoot, poor right tending Exercises Supine Ex: Bridging, Ankle pumps, Quad Set, Rolling, Glut sets, Heel Slides, Short Arc Quads, Scooting, Straight leg raise, Hip abd/add Supine Reps: 15 Seated Therapy Exercises: Ankle pumps, Sit to stand, Long arc quads, Hip flexion Seated Reps: 12 NuStep Minutes: 10 NuStep Workload: 1 Assessment Current Status: Good Progress very slow progress PT Short Term Goals Short Term Goals Time Frame: Mar 01, 2017 Transfers (B,C,W/C) (FIM): 4 (mt 03/01/17) Gait (FIM): 4 Distance (FIM): 3=150 ft Gait Assistive Device: FWW Wheelchair Distance: 50' Stairs (FIM): 2 # of Steps: 4 PT Custodial Goals Cadd Manager Goals PT Cadd Manager Goals Time Frame: March 15, 2017 Transfers (B,C,W/C) (FIM): 6 Sit to Lying (QC): 6 Lying-Sitting on Side/Bed(QC): 6 Sit to Stand (QC): 6 Rollin Roll Left to Right (QC): 6 Chair/[id number] Xfer(QC): 6 Car Transfer (QC): 5 Does the Patient Walk: Yes Gait (FIM): 6 Gait distance (FIM): 3=150 ft Walk 10 feet (QC): 6 Walk 10ft-Uneven Surface(QC): 6 Walk 50ft with 2 Turns (QC): 6 Walk 150 ft (QC): 6 Gait Level of Assist: 6 Gait Assistive Device: FWW Does the Pt use WC or Scooter?: No Stairs (FIM): 5 # of Steps: 8 1 Step (curb) (QC): 6 4 Steps (QC): 5 12 Steps (QC): 9 Stairs Level Of Assist: 6 Picking up an Object (QC): 4 PT Plan Treatment/Plan Treatment Plan: Continue Plan of Care Treatment Plan: Bed Mobility, Education, Functional Activity [place], Functional Strength, Group Therapy, Gait, Safety, Therapeutic Exercise, Transfers Treatment Duration: March 15, 2017 Visits Per Week: 10-15 Minutes/Day (M-F): 60-90 Minutes/Day (Sat/Anders): prn Safety Risks/Education Patient Education: Gait Training, Transfer Techniques, Correct Positioning, Safety Issues Teaching Recipient: Patient Teaching Methods: Demonstration, Discussion Response to Teaching: Verbalize Understanding, Return Demonstration, Reinforcement Needed Time/GCodes Time In: 1000 Time Out: 1100 Total Billed Treatment Time: 60 Total Billed Treatment 1,EX30m,GT30m G Codes Necessary: MOISE Miranda MANAGER [employer] Mar 03, 2017 11:00
--- NOTE | 2017-03-03 13:33 | Occupational Ther Daily Note ---
OT Current Status-Daily Note Subjective Pt alert, sitting in recliner. Pt agreed to therapy. No c/o pain. Mental Status/Objective Patient Orientation: Person, Place, Time, Situation Functional [place] Measure 0=Not Assessed/NA 4=Minimal Assistance 1=Total Assistance 5=Supervision or Setup 2=Maximal Assistance 6=Modified [place] 3=Moderate Assistance 7=Complete [place] ADL-Treatment Functional [place] Measure 0=Not Assessed/NA 4=Minimal Assistance 1=Total Assistance 5=Supervision or Setup 2=Maximal Assistance 6=Modified [place] 3=Moderate Assistance 7=Complete IndependenceIRFPAI Quality Coding Scale 6 Independent with activity with or without an assistive device 5 Patient requires set up or clean up by helper. Patient completes activity by themselves 4 Supervision or touching assist (CGA). [place] provide cues , steadying assist 3 The helper provides less than half the effort to complete the activity 2 The helper provides more than half the effort to complete the activity 1 Dependent. The helper does all the effort to complete an activity 7 Patient refused to complete or attempt activity 9 The patient did not perform the activity before the current illness or injury 88 Not attempted due to Medical conditions or safety concerns Other Treatment Pt ambulated to bathroom to complete toileting. Transferred to toilet with SBA using FWW. Pt did not void at this time. Pt was able to complete hygiene and manipulate clothing with SBA. Then transferred into w/c and was transported to therapy gym. Pt completed arm bike duration 5 min at 15 woodall resistance to increase strength, focus and activity tolerance for daily functional tasks. Pt' s hands needed to be placed onto handles then shown how to move. Pt would go for 2 min then stop and needed verbal cues to start back up. Then completed fine motor sorting tasks. Pt required multiple verbal/physical/visual cues to complete sorting. Pt had difficulty moving from 1 step to another. After therapy, pt sitting in recliner with call light/phone in reach. All needs met in room. OT Short Term Goals Short Term Goals Time Frame: Mar 01, 2017 Eating(FIM): 5 Grooming(FIM): 5 Bathing(FIM): 4 Upper Body Dressing(FIM): 4 Lower Body Dressing(FIM): 4 Toileting(FIM): 4 Transfers (B,C,W/C) (FIM): 4 (mt 03/01/17) Toilet/Commode Transfer(FIM): 4 Shower Transfer(FIM): 4 Additional Short Term Goals: 2-Verbalize Understanding, 3-ImproveStrength/[place] 1=Demonstrate adherence to instructed precautions during ADL tasks. 2=Patient will verbalize/demonstrate understanding of assistive devices/ modifications for ADL. 3=Patient will improve strength/tolerance for activity to enable patient to perform ADL's. OT Group Home Goals Chisel Worker Goals Time Frame: March 15, 2017 Eating (FIM): 6 Eating (QC): 6 Groomin Oral Hygiene (QC): 6 Bathing(FIM): 5 Shower/Bathe Self (QC): 5 Upper Body Dressing(FIM): 5 Upper Body Dressing (QC): 5 Lower Body Dressing(FIM): 5 Lower Body Dressing (QC): 5 On/Off Footwear (QC): 5 Toileting(FIM): 6 Toileting Hygiene (QC): 6 Toilet/Commode Transfer(FIM): 6 Toilet/Commode Transfer (QC): 6 Shower Transfer(FIM): 6 Comprehension(FIM): 3 Expression (FIM): 2 Social Interaction(FIM): 3 Problem Solving(FIM): 2 Memory(FIM): 2 Additional Goals: 2-Verbalize Understanding, 3-ImproveStrength/[place] 1=Demonstrate adherence to instructed precautions during ADL tasks. 2=Patient will verbalize/demonstrate understanding of assistive devices/ modifications for ADL. 3=Patient will improve strength/tolerance for activity to enable patient to perform ADL's. OT Education/Plan Problem List/Assessment Pt would benefit from skilled OT to increase her independence in basic self care to allow her to return home safely with family and to decrease caregiver burden Discharge Recommendations Plan/Recommendations: Continue POC Treatment Plan/Plan of Care Patient would benefit from OT for education, treatment and training to promote independence in ADL's, mobility, safety and/or upper extremity function for ADL' s. Plan of Care: ADL Retraining, Functional Mobility, Group Exercise/Act as Ind ( education, exercise, functional acitivities, communication, memory, problem solving), UE Funct Exercise/Act, UE Neuromus Re-Ed/Coord, Visual/Perceptual Retrain Treatment Duration: March 15, 2017 Visits Per Week: 10-11 Minutes/Day (M-F): 75-90 Minutes/Day (Sat/Anders): PRN Agreement: Yes Rehab Potential: Fair Time/GCodes Start Time: 12:30 Stop Time: 13:00 Total Time Billed (hr/min): 30 Billed Treatment Time 1 visit- FA 1 (15 min) EX 1 (15 min) HUSSEIN PERDOMO Mar 03, 2017 13:33
[2017-03-03 18:17] VITALS: BP 149/89
[2017-03-03] MEDS: SIMvastatin 40 MG (ZOCOR) TAB PO SCH (20:11)
[2017-03-03] MEDS: LATANOPROST 0.005% (XALATAN) OPHTH SOLN 2.5 ML OD SCH (20:12)
[2017-03-04 05:27] VITALS: BP 134/82
[2017-03-04] MEDS: LEVOTHYROXINE 75 MCG (LEVOTHROID) TABLET PO SCH (05:58)
--- NOTE | 2017-03-04 09:14 | Occupational Ther Daily Note ---
OT Current Status-Daily Note Subjective Pt alert, sitting in recliner. Pt agreed to therapy. Pt attempted to state how she was feeling. Shook her head no for pain, shook head yes for frustrated. Mental Status/Objective Patient Orientation: Person, Place, Non-Verbal/Aphasic, Time, Situation Functional [place] Measure 0=Not Assessed/NA 4=Minimal Assistance 1=Total Assistance 5=Supervision or Setup 2=Maximal Assistance 6=Modified [place] 3=Moderate Assistance 7=Complete [place] ADL-Treatment Pt retrieved clothing from closet using FWW. Pt had difficulty keeping balance while choosing and reaching for clothing, leaning heavily toward R side. Pt took recovery break before completing more. Pt ambulated with CGA to recliner and was able to don upper/lower body clothing by self. Did not change socks today. Pt then ambulated to sink with CGA using FWW to complete grooming. Pt is able to use grooming tools appropriately without verbal cues to initiate. Pt transferred to toilet using FWW with CGA and voided. Pt was able to manipulate clothing and cleanse self with SBA. After therapy, pt sitting in recliner with call light/phone in reach. Visitor present in room. All needs met. Functional [place] Measure 0=Not Assessed/NA 4=Minimal Assistance 1=Total Assistance 5=Supervision or Setup 2=Maximal Assistance 6=Modified [place] 3=Moderate Assistance 7=Complete IndependenceIRFPAI Quality Coding Scale 6 Independent with activity with or without an assistive device 5 Patient requires set up or clean up by helper. Patient completes activity by themselves 4 Supervision or touching assist (CGA). [place] provide cues , steadying assist 3 The helper provides less than half the effort to complete the activity 2 The helper provides more than half the effort to complete the activity 1 Dependent. The helper does all the effort to complete an activity 7 Patient refused to complete or attempt activity 9 The patient did not perform the activity before the current illness or injury 88 Not attempted due to Medical conditions or safety concerns Grooming (FIM): 5 Oral Hygiene (QC): 5 Upper Body (FIM): 5 Upper Body Dressing (QC): 5 Lower Body Dressing (FIM): 5 Lower Body Dressing (QC): 4 Toileting (FIM): 5 Toileting Hygiene (QC): 4 Transfers (B, C, W/C) (FIM): 4 Toilet/Commode Transfer (FIM): 4 Toilet Transfer (QC): 4 Other Treatment Pt was able to maneuver w/c 10 feet by self then was able to gesture which direction to go to get to room. Pt completed arm bike duration 10 min at 15 woodall resistance to increase focus, strength and activity tolerance for daily functional tasks. Pt stayed focused on task and did not require any breaks. OT Short Term Goals Short Term Goals Time Frame: Mar 01, 2017 Eating(FIM): 5 Grooming(FIM): 5 Bathing(FIM): 4 Upper Body Dressing(FIM): 4 Lower Body Dressing(FIM): 4 Toileting(FIM): 4 Transfers (B,C,W/C) (FIM): 4 (mt 03/01/17) Toilet/Commode Transfer(FIM): 4 Shower Transfer(FIM): 4 Additional Short Term Goals: 2-Verbalize Understanding, 3-ImproveStrength/[place] 1=Demonstrate adherence to instructed precautions during ADL tasks. 2=Patient will verbalize/demonstrate understanding of assistive devices/ modifications for ADL. 3=Patient will improve strength/tolerance for activity to enable patient to perform ADL's. OT Clinical Courier Goals Usp Goals Time Frame: March 15, 2017 Eating (FIM): 6 Eating (QC): 6 Groomin Oral Hygiene (QC): 6 Bathing(FIM): 5 Shower/Bathe Self (QC): 5 Upper Body Dressing(FIM): 5 Upper Body Dressing (QC): 5 Lower Body Dressing(FIM): 5 Lower Body Dressing (QC): 5 On/Off Footwear (QC): 5 Toileting(FIM): 6 Toileting Hygiene (QC): 6 Toilet/Commode Transfer(FIM): 6 Toilet/Commode Transfer (QC): 6 Shower Transfer(FIM): 6 Comprehension(FIM): 3 Expression (FIM): 2 Social Interaction(FIM): 3 Problem Solving(FIM): 2 Memory(FIM): 2 Additional Goals: 2-Verbalize Understanding, 3-ImproveStrength/[place] 1=Demonstrate adherence to instructed precautions during ADL tasks. 2=Patient will verbalize/demonstrate understanding of assistive devices/ modifications for ADL. 3=Patient will improve strength/tolerance for activity to enable patient to perform ADL's. OT Education/Plan Problem List/Assessment Pt would benefit from skilled OT to increase her independence in basic self care to allow her to return home safely with family and to decrease caregiver burden Discharge Recommendations Plan/Recommendations: Continue POC Treatment Plan/Plan of Care Patient would benefit from OT for education, treatment and training to promote independence in ADL's, mobility, safety and/or upper extremity function for ADL' s. Plan of Care: ADL Retraining, Functional Mobility, Group Exercise/Act as Ind ( education, exercise, functional acitivities, communication, memory, problem solving), UE Funct Exercise/Act, UE Neuromus Re-Ed/Coord, Visual/Perceptual Retrain Treatment Duration: March 15, 2017 Visits Per Week: 10-11 Minutes/Day (M-F): 75-90 Minutes/Day (Sat/Anders): PRN Agreement: Yes Rehab Potential: Fair Time/GCodes Start Time: 08:00 Stop Time: 09:15 Total Time Billed (hr/min): 75 Billed Treatment Time 1 visit-FA 4 (65 min) EX 1 (10 min) HUSSEIN PERDOMO Mar 04, 2017 09:14
[2017-03-04] MEDS: DIGOXIN 0.125 MG (LANOXIN) TAB PO SCH (09:42)
[2017-03-04] MEDS: GABAPENTIN 300 MG (NEURONTIN) CAP PO SCH ×2 (09:42→21:29)
[2017-03-04] MEDS: PANTOPRAZOLE 20 MG TABLET (PROTONIX) PO SCH ×2 (09:42→21:29)
[2017-03-04] MEDS: ATENOLOL 25 MG (TENORMIN) TAB PO SCH (09:42)
[2017-03-04] MEDS: FOLIC ACID 1 MG TAB PO SCH ×2 (09:42→21:29)
[2017-03-04] MEDS: APIXABAN 5 MG (ELIQUIS) TABLET PO SCH ×2 (09:42→21:29)
[2017-03-04] MEDS: lisINopril 10 MG (PRINIVIL) TAB PO SCH (09:42)
[2017-03-04] MEDS: prednisoLONE 1% OPTH (PRED FORTE) 5 ML BTL OD SCH ×4 (09:50→21:26)
[2017-03-04] MEDS: BRIMONIDINE 0.2% (ALPHAGAN) OPHTH SOLN 5 ML BTL OU SCH ×3 (09:50→21:27)
[2017-03-04] MEDS: TIMOLOL MALEATE 0.5% 5 ML (TIMOPTIC) BTL OU SCH ×2 (09:51→21:28)
[2017-03-04] MEDS: CYCLOPENTOLATE 1% (CYCLOGYL) 2 ML DROPS OD SCH (09:51)
--- NOTE | 2017-03-04 10:46 | Physical Therapy Daily Note ---
PT Daily Note-Current Subjective Patient in recliner pre tx, agrees to PT, has no complaint of pain. Appearance Patient in recliner post tx with nurse call, phone, tray, chair alarm on, all needs met. Mental Status Patient Orientation: Unable to Assess Transfers Functional [place] Measure 0=Not Assessed/NA 4=Minimal Assistance 1=Total Assistance 5=Supervision or Setup 2=Maximal Assistance 6=Modified [place] 3=Moderate Assistance 7=Complete IndependenceIRFPAI Quality Coding Scale 6 Independent with activity with or without an assistive device 5 Patient requires set up or clean up by helper. Patient completes activity by themselves 4 Supervision or touching assist (CGA). [place] provide cues , steadying assist 3 The helper provides less than half the effort to complete the activity 2 The helper provides more than half the effort to complete the activity 1 Dependent. The helper does all the effort to complete an activity 7 Patient refused to complete or attempt activity 9 The patient did not perform the activity before the current illness or injury 88 Not attempted due to Medical conditions or safety concerns Transfers (B, C, W/C) (FIM): 4 Sit to/from Stand: 4 CGA, patient seems to have worse right neglect today and has a very hard time transferring to her right side or even doing anything to the right side. Gait Training Gait (FIM): 4 Distance: 150'x2 Gait Level of Assist: 4 Gait Persons Needed: 1 Gait Assistive Device: FWW CGA, very slow, shuffling gait, occasionally may take a standing rest break Exercises Standing: Hip Abduction, Heel/toe raises, Marching, Mini squats Standing Reps: 20 LAQ alternating for 5 min Treatments transfers, ambulation, functional strengthening Assessment Current Status: Poor Progress no change in mobility, seems to have worse right neglect this morning PT Short Term Goals Short Term Goals Time Frame: Mar 01, 2017 Transfers (B,C,W/C) (FIM): 4 (mt 03/01/17) Gait (FIM): 4 Distance (FIM): 3=150 ft Gait Assistive Device: FWW Wheelchair Distance: 50' Stairs (FIM): 2 # of Steps: 4 PT Protein Purification Scientist Goals Protein Purification Scientist Goals PT Mcfp Goals Time Frame: March 15, 2017 Transfers (B,C,W/C) (FIM): 6 Sit to Lying (QC): 6 Lying-Sitting on Side/Bed(QC): 6 Sit to Stand (QC): 6 Rollin Roll Left to Right (QC): 6 Chair/Tjm-vt-[id number] Xfer(QC): 6 Car Transfer (QC): 5 Does the Patient Walk: Yes Gait (FIM): 6 Gait distance (FIM): 3=150 ft Walk 10 feet (QC): 6 Walk 10ft-Uneven Surface(QC): 6 Walk 50ft with 2 Turns (QC): 6 Walk 150 ft (QC): 6 Gait Level of Assist: 6 Gait Assistive Device: FWW Does the Pt use WC or Scooter?: No Stairs (FIM): 5 # of Steps: 8 1 Step (curb) (QC): 6 4 Steps (QC): 5 12 Steps (QC): 9 Stairs Level Of Assist: 6 Picking up an Object (QC): 4 PT Plan Problem List Problem List: Activity Tolerance, Functional Strength, Safety, Balance, Gait, Transfer, Bed Mobility Treatment/Plan Treatment Plan: Continue Plan of Care Treatment Plan: Bed Mobility, Education, Functional Activity [place], Functional Strength, Group Therapy, Gait, Safety, Therapeutic Exercise, Transfers Treatment Duration: March 15, 2017 Visits Per Week: 10-15 Minutes/Day (M-F): 60-90 Minutes/Day (Sat/Anders): prn Safety Risks/Education Patient Education: Gait Training, Transfer Techniques, Correct Positioning, Safety Issues Teaching Recipient: Patient Teaching Methods: Demonstration, Discussion Response to Teaching: Reinforcement Needed Time/GCodes Time In: 1000 Time Out: 1045 Total Billed Treatment Time: 45 Total Billed Treatment 1 visit GT 30 min EX 15 min RETA PENA PT Mar 04, 2017 10:46
--- NOTE | 2017-03-04 10:51 | Speech Therapy Daily Note ---
Speech Daily Progress Note Subjective The patient was seated upright in recliner upon entrance. The patient greeted the clinician with "hello" and was agreeable to participation in speech and language therapy on this date. To note: The patient demonstrated increased, intermittent fluency on this date ( "I got it all right yesterday."), however, her responses were unrelated and inappropriate for the questions poised by the clinician. Objective Confrontational Naming (objects): The patient was unable to state the name of common ADL objects (brush, pen, cup) with maximum clinician verbal prompts including phonemic cues, functional use, or field of two. Yes/No: The patient demonstrated consistent accuracy (which is reduced from the prior week) with yes/no questions on this date. The patient would respond with "maybe" to questions she currently responded to without difficulty (i.e. name). Repetition: The patient was unable to repeat single phonemes or single words ( including name) on this date. Bilabial practice sheet (/b/) was modeled by clinician. The patient was provided a sheet in attempts to increase accuracy with visualization. The patient remained unable to provide accurate repetition of bilabial words. Assessment Assessment Current Status: Poor Progress Treatment Plan Continue Plan of Care Communication Comprehension: 2 Expression: 1 Social Cognition Social Interaction: 1 Problem Solvin Memory: 1 Speech Short Term Goals Short Term Goals Short Term Goals 1. The patient will demonstrate swallowing strategies with 80% accuracy and mild clinician verbal cueing. PROGRESSING 2. The patient will demonstrate dysphagia strengthening exercises with 80% accuracy and mild clinician verbal cueing. PROGRESSING 3. The patient will repeat single, bilabial phonemes with 80% accuracy and maximum clinician verbal cueing. NOT PROGRESSING 4. The patient will identify common objects in a field of two. NOT PROGRESSING 5. The patient will display 80% accuracy with simple yes/no questions through pointing, head nods, or verbalizations. PROGRESSING (02/18/17) Time Frame-STG: Four Weeks Speech Hose Cementer Goals Hose Cementer Goals 1. The patient will tolerate the least restrictive diet without signs/symptoms of aspiration or laryngeal penetration. 2. The patient will demonstrate improved expressive and receptive language for increased function and safety with ADL's in the least restrictive setting. Time Frame: Four Weeks Comprehension: 3 Expression: 2 Social Interaction: 3 Problem Solvin Memory: 2 Speech-Plan Treatment Plan Speech Therapy Treatment Plan: Continue Plan of Care Continue skilled speech pathology to target functional expressive and receptive communication. Treatment Duration: March 15, 2017 # of days/week Five. Visits Per Week: Five Minutes/Day (M-F): 30 Rehab Potential: Fair Safety Risks/Education Teaching Recipient: Patient Teaching Methods: Demonstration, Handout, Discussion Response to Teaching: Unable to Return Demonstration Education Topics Provided: Bilabial Practice Sheet Time Speech Therapy Time In: 09:30 Speech Therapy Time Out: 10:00 Total Billed Time: 30 Billed Treatment Time 1RHETT ELIZABETH ST Mar 04, 2017 10:51
--- NOTE | 2017-03-04 14:07 | Physical Therapy Daily Note ---
PT Daily Note-Current Subjective Patient agrees to PT. Pain Numeric Pain Scale: 0-No Pain Location: No Pain Reported Mental Status Patient Orientation: Non-Verbal/Aphasic, Normal For Age Transfers Functional [place] Measure 0=Not Assessed/NA 4=Minimal Assistance 1=Total Assistance 5=Supervision or Setup 2=Maximal Assistance 6=Modified [place] 3=Moderate Assistance 7=Complete IndependenceIRFPAI Quality Coding Scale 6 Independent with activity with or without an assistive device 5 Patient requires set up or clean up by helper. Patient completes activity by themselves 4 Supervision or touching assist (CGA). [place] provide cues , steadying assist 3 The helper provides less than half the effort to complete the activity 2 The helper provides more than half the effort to complete the activity 1 Dependent. The helper does all the effort to complete an activity 7 Patient refused to complete or attempt activity 9 The patient did not perform the activity before the current illness or injury 88 Not attempted due to Medical conditions or safety concerns Transfers (B, C, W/C) (FIM): 4 Scootin Sit to/from Stand: 4 Sit to Lying (QC): 4 Sit to Stand (QC): 4 Car Transfer (QC): 4 CGA for safety with gait belt Gait Training Does the Patient Walk?: Yes Gait (FIM): 4 Distance (FIM): 3=150 ft Distance: 150' x 2 Walk 10 feet (QC): 4 Walk 50 ft with 2 Turns(QC): 4 Walk 150 ft (QC): 4 Gait Level of Assist: 4 Gait Persons Needed: 1 Gait Assistive Device: FWW shuffle gait sequence with FWW; minimal foot clearance Exercises NuStep Minutes: 10 NuStep Workload: 3 Assessment Patient appears very fatigue this p.m.,however, improved from the last this PT worked with her. PT to continue with POC. PT Short Term Goals Short Term Goals Time Frame: Mar 01, 2017 Transfers (B,C,W/C) (FIM): 4 (mt 03/01/17) Gait (FIM): 4 Distance (FIM): 3=150 ft Gait Assistive Device: FWW Wheelchair Distance: 50' Stairs (FIM): 2 # of Steps: 4 PT Solar Tech Goals Usp Goals PT Solar Tech Goals Time Frame: March 15, 2017 Transfers (B,C,W/C) (FIM): 6 Sit to Lying (QC): 6 Lying-Sitting on Side/Bed(QC): 6 Sit to Stand (QC): 6 Rollin Roll Left to Right (QC): 6 Chair/[id number] Xfer(QC): 6 Car Transfer (QC): 5 Does the Patient Walk: Yes Gait (FIM): 6 Gait distance (FIM): 3=150 ft Walk 10 feet (QC): 6 Walk 10ft-Uneven Surface(QC): 6 Walk 50ft with 2 Turns (QC): 6 Walk 150 ft (QC): 6 Gait Level of Assist: 6 Gait Assistive Device: FWW Does the Pt use WC or Scooter?: No Stairs (FIM): 5 # of Steps: 8 1 Step (curb) (QC): 6 4 Steps (QC): 5 12 Steps (QC): 9 Stairs Level Of Assist: 6 Picking up an Object (QC): 4 PT Plan Treatment/Plan Treatment Plan: Continue Plan of Care Treatment Plan: Bed Mobility, Education, Functional Activity [place], Functional Strength, Group Therapy, Gait, Safety, Therapeutic Exercise, Transfers Treatment Duration: March 15, 2017 Visits Per Week: 10-15 Minutes/Day (M-F): 60-90 Minutes/Day (Sat/Anders): prn Time/GCodes Time In: 1303 Time Out: 1333 Total Billed Treatment Time: 30 Total Billed Treatment 1 visit EX 10 min GT 20 min CHRISTIANNE HOWARD PT Mar 04, 2017 14:07
[2017-03-04 18:30] VITALS: BP 130/75
[2017-03-04] MEDS: LATANOPROST 0.005% (XALATAN) OPHTH SOLN 2.5 ML OD SCH (21:27)
[2017-03-04] MEDS: SIMvastatin 40 MG (ZOCOR) TAB PO SCH (21:29)
[2017-03-05 05:00] VITALS: BP 114/68
[2017-03-05] MEDS: LEVOTHYROXINE 75 MCG (LEVOTHROID) TABLET PO SCH (05:47)
[2017-03-05] MEDS: FOLIC ACID 1 MG TAB PO SCH ×2 (08:05→19:52)
[2017-03-05] MEDS: PANTOPRAZOLE 20 MG TABLET (PROTONIX) PO SCH ×2 (08:05→19:52)
[2017-03-05] MEDS: DIGOXIN 0.125 MG (LANOXIN) TAB PO SCH (08:05)
[2017-03-05] MEDS: ATENOLOL 25 MG (TENORMIN) TAB PO SCH (08:06)
[2017-03-05] MEDS: APIXABAN 5 MG (ELIQUIS) TABLET PO SCH ×2 (08:06→19:51)
[2017-03-05] MEDS: GABAPENTIN 300 MG (NEURONTIN) CAP PO SCH ×2 (08:06→19:52)
[2017-03-05] MEDS: lisINopril 10 MG (PRINIVIL) TAB PO SCH (08:06)
[2017-03-05] MEDS: CYCLOPENTOLATE 1% (CYCLOGYL) 2 ML DROPS OD SCH (08:08)
[2017-03-05] MEDS: prednisoLONE 1% OPTH (PRED FORTE) 5 ML BTL OD SCH ×4 (08:08→19:53)
[2017-03-05] MEDS: BRIMONIDINE 0.2% (ALPHAGAN) OPHTH SOLN 5 ML BTL OU SCH ×3 (08:09→19:53)
[2017-03-05] MEDS: TIMOLOL MALEATE 0.5% 5 ML (TIMOPTIC) BTL OU SCH ×2 (08:09→19:53)
--- NOTE | 2017-03-05 11:07 | Physical Therapy Daily Note ---
PT Daily Note-Current Mental Status Patient Orientation: Confused, [place] Transfers Functional [place] Measure 0=Not Assessed/NA 4=Minimal Assistance 1=Total Assistance 5=Supervision or Setup 2=Maximal Assistance 6=Modified [place] 3=Moderate Assistance 7=Complete IndependenceIRFPAI Quality Coding Scale 6 Independent with activity with or without an assistive device 5 Patient requires set up or clean up by helper. Patient completes activity by themselves 4 Supervision or touching assist (CGA). [place] provide cues , steadying assist 3 The helper provides less than half the effort to complete the activity 2 The helper provides more than half the effort to complete the activity 1 Dependent. The helper does all the effort to complete an activity 7 Patient refused to complete or attempt activity 9 The patient did not perform the activity before the current illness or injury 88 Not attempted due to Medical conditions or safety concerns Transfers (B, C, W/C) (FIM): 4 verbal cues for hand placement on chair and walker Gait Training Gait (FIM): 4 Distance (FIM): 3=150 ft Distance: 150 Gait Level of Assist: 4 Gait Persons Needed: 1 Gait Assistive Device: FWW Worked on lengthening stride when using the FWW. Tends to shuffle the (R) foot. Attempted gait with hand held assist, but patient demonstrated decreased stride length as compared to with FWW. Ambulated distances of 150ft x 2, 50ft x 3 Exercises Supine Ex: Bridging, Rolling, Lower trunk rotation, Heel Slides, D1 F/E UE, Hip abd/add Supine Reps: 15 Seated Therapy Exercises: Long arc quads, Hip flexion, Kicking activity Seated Reps: 15 Standing: Hip Abduction, Marching, Mini squats Standing Reps: 15 Pt not able to follow cuing for retro walking or side stepping. Assessment Current Status: Fair Progress Pt was fatigued this session. Low energy and had difficulty following verbal cues for multistep tasks. Exercises were focused on increasing LE coordination to improve gait. PT Short Term Goals Short Term Goals Time Frame: Mar 01, 2017 Transfers (B,C,W/C) (FIM): 4 (mt 03/01/17) Gait (FIM): 4 Distance (FIM): 3=150 ft Gait Assistive Device: FWW Wheelchair Distance: 50' Stairs (FIM): 2 # of Steps: 4 PT Half-Way Goals Half-Way Goals PT Voltage Regulator Assembler Goals Time Frame: March 15, 2017 Transfers (B,C,W/C) (FIM): 6 Sit to Lying (QC): 6 Lying-Sitting on Side/Bed(QC): 6 Sit to Stand (QC): 6 Rollin Roll Left to Right (QC): 6 Chair/[id number]-vv-Igdli Xfer(QC): 6 Car Transfer (QC): 5 Does the Patient Walk: Yes Gait (FIM): 6 Gait distance (FIM): 3=150 ft Walk 10 feet (QC): 6 Walk 10ft-Uneven Surface(QC): 6 Walk 50ft with 2 Turns (QC): 6 Walk 150 ft (QC): 6 Gait Level of Assist: 6 Gait Assistive Device: FWW Does the Pt use WC or Scooter?: No Stairs (FIM): 5 # of Steps: 8 1 Step (curb) (QC): 6 4 Steps (QC): 5 12 Steps (QC): 9 Stairs Level Of Assist: 6 Picking up an Object (QC): 4 PT Plan Treatment/Plan Treatment Plan: Continue Plan of Care Treatment Plan: Bed Mobility, Education, Functional Activity [place], Functional Strength, Group Therapy, Gait, Safety, Therapeutic Exercise, Transfers Treatment Duration: March 15, 2017 Visits Per Week: 10-15 Minutes/Day (M-F): 60-90 Minutes/Day (Sat/Anders): prn Time/GCodes Time In: 1015 Time Out: 1100 Total Billed Treatment Time: 45 Total Billed Treatment visit, NM 15min, ex 15min, gait 15 min VELMA LUKE PT Mar 05, 2017 11:07
--- NOTE | 2017-03-05 12:52 | Physical Therapy Daily Note ---
PT Daily Note-Current Subjective Requests to toilet and then get up to the chair. Pleasant. Transfers Functional [place] Measure 0=Not Assessed/NA 4=Minimal Assistance 1=Total Assistance 5=Supervision or Setup 2=Maximal Assistance 6=Modified [place] 3=Moderate Assistance 7=Complete IndependenceIRFPAI Quality Coding Scale 6 Independent with activity with or without an assistive device 5 Patient requires set up or clean up by helper. Patient completes activity by themselves 4 Supervision or touching assist (CGA). [place] provide cues , steadying assist 3 The helper provides less than half the effort to complete the activity 2 The helper provides more than half the effort to complete the activity 1 Dependent. The helper does all the effort to complete an activity 7 Patient refused to complete or attempt activity 9 The patient did not perform the activity before the current illness or injury 88 Not attempted due to Medical conditions or safety concerns Treatments Max assist sup to sit EOB. sit to stand from bed with FWW, unable to come to full upright or initiate steps. Sit to stand dance style and SPT to commode. Toileted. Dep jose rafael care and clothing. SPT back to EOB then to chair again dance style with max assist. Pt in chair post treatment wiht needs met and family present. Pt able to take steps to assist with transfer the last 2 transfers. Remains with head down and significant thoracic kyphosis during transfer. Assessment Current Status: Fair Progress Improved ability to take steps with repetition this date. Pleasant. Cooperative. Unable to safely use walker for transfer this visit. PT Short Term Goals Short Term Goals Time Frame: Mar 01, 2017 Transfers (B,C,W/C) (FIM): 4 (mt 03/01/17) Gait (FIM): 4 Distance (FIM): 3=150 ft Gait Assistive Device: FWW Wheelchair Distance: 50' Stairs (FIM): 2 # of Steps: 4 PT Shelter Goals Shelter Goals PT Shelter Goals Time Frame: March 15, 2017 Transfers (B,C,W/C) (FIM): 6 Sit to Lying (QC): 6 Lying-Sitting on Side/Bed(QC): 6 Sit to Stand (QC): 6 Rollin Chair/Teg-ry-Ikzbr Xfer(QC): 6 Does the Patient Walk: Yes Gait (FIM): 6 Gait distance (FIM): 3=150 ft Walk 50ft with 2 Turns (QC): 6 Walk 150 ft (QC): 6 Gait Level of Assist: 6 Gait Assistive Device: FWW Does the Pt use WC or Scooter?: No Stairs (FIM): 5 # of Steps: 8 Stairs Level Of Assist: 6 PT Plan Problem List Problem List: Activity Tolerance, Functional Strength, Safety, Balance, Gait, Transfer, Bed Mobility Treatment/Plan Treatment Plan: Continue Plan of Care Treatment Plan: Bed Mobility, Education, Functional Activity [place], Functional Strength, Group Therapy, Gait, Safety, Therapeutic Exercise, Transfers Treatment Duration: March 15, 2017 Visits Per Week: 10-15 Minutes/Day (M-F): 60-90 Minutes/Day (Sat/Anders): prn Time/GCodes Time In: 1230 Time Out: 1255 Total Billed Treatment Time: 25 Total Billed Treatment visit FA 25 HUSSEIN JAMIL PT Mar 05, 2017 12:52
--- NOTE | 2017-03-05 13:11 | Speech Therapy Daily Note ---
Speech Daily Progress Note Subjective The patient was seated upright in chair upon entrance. The patient greeted the clinician appropriately (verbally) and was agreeable to participation in speech and language therapy. The patient's was present for today's treatment. Objective Confrontational Naming (objects): The patient was unable to state the name of common ADL objects (brush, pen) with maximum clinician verbal prompts including phonemic cues, functional use, or field of two. Yes/No: The patient demonstrated consistent accuracy (which is reduced from the prior week) with yes/no questions on this date. The patient was able to identify her name on this date with a yes head nod. The patient reaches this goal with 70% accuracy and moderate clinician cueing. Repetition: The patient was unable to repeat single phonemes or single words ( including name) on this date. Bilabial practice sheet (/b/) was modeled by clinician. The patient was provided a sheet in attempts to increase accuracy with visualization. The patient remained unable to provide accurate repetition of bilabial words. Assessment Assessment Current Status: Poor Progress Treatment Plan Continue Plan of Care Communication Comprehension: 2 Expression: 1 Social Cognition Social Interaction: 1 Problem Solvin Memory: 1 Speech Short Term Goals Short Term Goals Short Term Goals 1. The patient will demonstrate swallowing strategies with 80% accuracy and mild clinician verbal cueing. PROGRESSING 2. The patient will demonstrate dysphagia strengthening exercises with 80% accuracy and mild clinician verbal cueing. PROGRESSING 3. The patient will repeat single, bilabial phonemes with 80% accuracy and maximum clinician verbal cueing. NOT PROGRESSING 4. The patient will identify common objects in a field of two. NOT PROGRESSING 5. The patient will display 80% accuracy with simple yes/no questions through pointing, head nods, or verbalizations. PROGRESSING (02/18/17) Time Frame-STG: Four Weeks Speech Longterm Goals Longterm Goals 1. The patient will tolerate the least restrictive diet without signs/symptoms of aspiration or laryngeal penetration. 2. The patient will demonstrate improved expressive and receptive language for increased function and safety with ADL's in the least restrictive setting. Time Frame: Four Weeks Comprehension: 3 Expression: 2 Social Interaction: 3 Problem Solvin Memory: 2 Speech-Plan Treatment Plan Speech Therapy Treatment Plan: Continue Plan of Care Continue skilled speech pathology to improve functional receptive and expressive communication. Treatment Duration: March 15, 2017 # of days/week Five. Visits Per Week: Five Minutes/Day (M-F): 30 Rehab Potential: Fair Safety Risks/Education Teaching Recipient: Patient Teaching Methods: Demonstration, Handout, Discussion Response to Teaching: Unable to Return Demonstration Education Topics Provided: Bilabial Practice Sheet Time Speech Therapy Time In: 12:25 Speech Therapy Time Out: 12:55 Total Billed Time: 30 Billed Treatment Time 1RHETT ELIZABETH ST Mar 05, 2017 13:11
--- NOTE | 2017-03-05 15:34 | Occupational Ther Daily Note ---
OT Current Status-Daily Note Subjective Pt alert, sitting in recliner. Pt agreed to therapy. No c/o pain. Pt has appeared dizzy during ADLs and fatigues easily. Mental Status/Objective Patient Orientation: Person, Place, Non-Verbal/Aphasic, Time, Situation Functional [place] Measure 0=Not Assessed/NA 4=Minimal Assistance 1=Total Assistance 5=Supervision or Setup 2=Maximal Assistance 6=Modified [place] 3=Moderate Assistance 7=Complete [place] ADL-Treatment Functional [place] Measure 0=Not Assessed/NA 4=Minimal Assistance 1=Total Assistance 5=Supervision or Setup 2=Maximal Assistance 6=Modified [place] 3=Moderate Assistance 7=Complete IndependenceIRFPAI Quality Coding Scale 6 Independent with activity with or without an assistive device 5 Patient requires set up or clean up by helper. Patient completes activity by themselves 4 Supervision or touching assist (CGA). [place] provide cues , steadying assist 3 The helper provides less than half the effort to complete the activity 2 The helper provides more than half the effort to complete the activity 1 Dependent. The helper does all the effort to complete an activity 7 Patient refused to complete or attempt activity 9 The patient did not perform the activity before the current illness or injury 88 Not attempted due to Medical conditions or safety concerns Grooming (FIM): 5 (Cues to find grooming tools. Pt stood at sink with FWW to complete task.) Bathing (FIM): 5 (Using shower bench, hand held shower, grabbars and soap placed on wash clothe pt is able to complete with SBA.) Bathing Location: L Arm, R Arm, L Upper Leg, R Upper Leg, L Lower Leg ( including foot), R Lower Leg (including foot), Chest, Abdomen, Buttocks, Perineal Area Upper Body (FIM): 5 (After setup, pt is able to complete upper body dressing by self.) Lower Body Dressing (FIM): 4 (After setup, pt is able to complete with min A to don over R foot then is able to hike over hips with SBA. Doff socks by self , dons L sock by self then assist with R sock.) Toileting (FIM): 5 (Using grabbars and FWW, pt is able to cleanse self and manipulate clothing. Pt is incontinent at times.) Transfers (B, C, W/C) (FIM): 4 (Pt required CGA with transfers.) Toilet/Commode Transfer (FIM): 5 (Using FWW and grabbars pt is able to complete transfer with SBA.) Shower Transfer(FIM): 5 (Using FWW and grabbars, pt is able to complete transfer with SBA.) Pt fatigues easily and needs cues when obstacle occurs in the middle of a sequence. After therapy, pt sitting in recliner with call light/phone in reach. All needs met in room. OT Short Term Goals Short Term Goals Time Frame: Mar 01, 2017 Eating(FIM): 5 Grooming(FIM): 5 Bathing(FIM): 4 Upper Body Dressing(FIM): 4 Lower Body Dressing(FIM): 4 Toileting(FIM): 4 Transfers (B,C,W/C) (FIM): 4 (mt 03/01/17) Toilet/Commode Transfer(FIM): 4 Shower Transfer(FIM): 4 Additional Short Term Goals: 2-Verbalize Understanding, 3-ImproveStrength/[place] 1=Demonstrate adherence to instructed precautions during ADL tasks. 2=Patient will verbalize/demonstrate understanding of assistive devices/ modifications for ADL. 3=Patient will improve strength/tolerance for activity to enable patient to perform ADL's. OT Trade Manager Goals Trade Manager Goals Time Frame: March 15, 2017 Eating (FIM): 6 Eating (QC): 6 Groomin Oral Hygiene (QC): 6 Bathing(FIM): 5 Shower/Bathe Self (QC): 5 Upper Body Dressing(FIM): 5 Upper Body Dressing (QC): 5 Lower Body Dressing(FIM): 5 Lower Body Dressing (QC): 5 On/Off Footwear (QC): 5 Toileting(FIM): 6 Toileting Hygiene (QC): 6 Toilet/Commode Transfer(FIM): 6 Toilet/Commode Transfer (QC): 6 Shower Transfer(FIM): 6 Comprehension(FIM): 3 Expression (FIM): 2 Social Interaction(FIM): 3 Problem Solving(FIM): 2 Memory(FIM): 2 Additional Goals: 2-Verbalize Understanding, 3-ImproveStrength/[place] 1=Demonstrate adherence to instructed precautions during ADL tasks. 2=Patient will verbalize/demonstrate understanding of assistive devices/ modifications for ADL. 3=Patient will improve strength/tolerance for activity to enable patient to perform ADL's. OT Education/Plan Problem List/Assessment Pt would benefit from skilled OT to increase her independence in basic self care to allow her to return home safely with family and to decrease caregiver burden Discharge Recommendations Plan/Recommendations: Continue POC Treatment Plan/Plan of Care Patient would benefit from OT for education, treatment and training to promote independence in ADL's, mobility, safety and/or upper extremity function for ADL' s. Plan of Care: ADL Retraining, Functional Mobility, Group Exercise/Act as Ind ( education, exercise, functional acitivities, communication, memory, problem solving), UE Funct Exercise/Act, UE Neuromus Re-Ed/Coord, Visual/Perceptual Retrain Treatment Duration: March 15, 2017 Visits Per Week: 10-11 Minutes/Day (M-F): 75-90 Minutes/Day (Sat/Anders): PRN Agreement: Yes Rehab Potential: Fair Time/GCodes Start Time: 08:00 Stop Time: 09:00 Total Time Billed (hr/min): 60 Billed Treatment Time 1 visit-ADL 4 (60 min) HUSSEIN PERDOMO Mar 05, 2017 15:34
--- NOTE | 2017-03-05 15:43 | Occupational Ther Daily Note ---
OT Current Status-Daily Note Subjective Pt alert, sitting in recliner. Pt agreed to therapy. No c/o pain. Mental Status/Objective Patient Orientation: Person, Place, Non-Verbal/Aphasic, Time, Situation Functional [place] Measure 0=Not Assessed/NA 4=Minimal Assistance 1=Total Assistance 5=Supervision or Setup 2=Maximal Assistance 6=Modified [place] 3=Moderate Assistance 7=Complete [place] ADL-Treatment Functional [place] Measure 0=Not Assessed/NA 4=Minimal Assistance 1=Total Assistance 5=Supervision or Setup 2=Maximal Assistance 6=Modified [place] 3=Moderate Assistance 7=Complete IndependenceIRFPAI Quality Coding Scale 6 Independent with activity with or without an assistive device 5 Patient requires set up or clean up by helper. Patient completes activity by themselves 4 Supervision or touching assist (CGA). [place] provide cues , steadying assist 3 The helper provides less than half the effort to complete the activity 2 The helper provides more than half the effort to complete the activity 1 Dependent. The helper does all the effort to complete an activity 7 Patient refused to complete or attempt activity 9 The patient did not perform the activity before the current illness or injury 88 Not attempted due to Medical conditions or safety concerns Eating (FIM): 5 (Set up and cues to use utensils to eat food. Pt is able to feed self.) Other Treatment Pt completed fine motor activity to work on visual perceptual and focusing on task. Pt was able to focus on task for an extended amount of time though unable to choose 1 item when given choice. 3 choices or less needed for consistent choices. After therapy, pt sitting in recliner with call light/ phone in reach. All needs met in room. OT Short Term Goals Short Term Goals Time Frame: Mar 01, 2017 Eating(FIM): 5 Grooming(FIM): 5 Bathing(FIM): 4 Upper Body Dressing(FIM): 4 Lower Body Dressing(FIM): 4 Toileting(FIM): 4 Transfers (B,C,W/C) (FIM): 4 (mt 03/01/17) Toilet/Commode Transfer(FIM): 4 Shower Transfer(FIM): 4 Additional Short Term Goals: 2-Verbalize Understanding, 3-ImproveStrength/[place] 1=Demonstrate adherence to instructed precautions during ADL tasks. 2=Patient will verbalize/demonstrate understanding of assistive devices/ modifications for ADL. 3=Patient will improve strength/tolerance for activity to enable patient to perform ADL's. OT Correction Goals Water Pumper Goals Time Frame: March 15, 2017 Eating (FIM): 6 Eating (QC): 6 Groomin Oral Hygiene (QC): 6 Bathing(FIM): 5 Shower/Bathe Self (QC): 5 Upper Body Dressing(FIM): 5 Upper Body Dressing (QC): 5 Lower Body Dressing(FIM): 5 Lower Body Dressing (QC): 5 On/Off Footwear (QC): 5 Toileting(FIM): 6 Toileting Hygiene (QC): 6 Toilet/Commode Transfer(FIM): 6 Toilet/Commode Transfer (QC): 6 Shower Transfer(FIM): 6 Comprehension(FIM): 3 Expression (FIM): 2 Social Interaction(FIM): 3 Problem Solving(FIM): 2 Memory(FIM): 2 Additional Goals: 2-Verbalize Understanding, 3-ImproveStrength/[place] 1=Demonstrate adherence to instructed precautions during ADL tasks. 2=Patient will verbalize/demonstrate understanding of assistive devices/ modifications for ADL. 3=Patient will improve strength/tolerance for activity to enable patient to perform ADL's. OT Education/Plan Problem List/Assessment Pt would benefit from skilled OT to increase her independence in basic self care to allow her to return home safely with family and to decrease caregiver burden Discharge Recommendations Plan/Recommendations: Continue POC Treatment Plan/Plan of Care Patient would benefit from OT for education, treatment and training to promote independence in ADL's, mobility, safety and/or upper extremity function for ADL' s. Plan of Care: ADL Retraining, Functional Mobility, Group Exercise/Act as Ind ( education, exercise, functional acitivities, communication, memory, problem solving), UE Funct Exercise/Act, UE Neuromus Re-Ed/Coord, Visual/Perceptual Retrain Treatment Duration: March 15, 2017 Visits Per Week: 10-11 Minutes/Day (M-F): 75-90 Minutes/Day (Sat/Anders): PRN Agreement: Yes Rehab Potential: Fair Time/GCodes Start Time: 11:15 Stop Time: 12:00 Total Time Billed (hr/min): 45 Billed Treatment Time 1 visit-FA 3 (45 min) HUSSEIN PERDOMO Mar 05, 2017 15:43
[2017-03-05 18:55] VITALS: BP 136/79
[2017-03-05] MEDS: SIMvastatin 40 MG (ZOCOR) TAB PO SCH (19:52)
[2017-03-05] MEDS: LATANOPROST 0.005% (XALATAN) OPHTH SOLN 2.5 ML OD SCH (19:53)
[2017-03-06 05:35] VITALS: BP 121/77
[2017-03-06] MEDS: LEVOTHYROXINE 75 MCG (LEVOTHROID) TABLET PO SCH (06:01)
[2017-03-06] MEDS: FOLIC ACID 1 MG TAB PO SCH ×2 (07:45→20:10)
[2017-03-06] MEDS: ATENOLOL 25 MG (TENORMIN) TAB PO SCH (07:45)
[2017-03-06] MEDS: GABAPENTIN 300 MG (NEURONTIN) CAP PO SCH ×2 (07:45→20:10)
[2017-03-06] MEDS: APIXABAN 5 MG (ELIQUIS) TABLET PO SCH ×3 (07:45→20:10)
[2017-03-06] MEDS: DIGOXIN 0.125 MG (LANOXIN) TAB PO SCH (07:46)
[2017-03-06] MEDS: BRIMONIDINE 0.2% (ALPHAGAN) OPHTH SOLN 5 ML BTL OU SCH ×3 (07:46→20:10)
[2017-03-06] MEDS: CYCLOPENTOLATE 1% (CYCLOGYL) 2 ML DROPS OD SCH (07:47)
[2017-03-06] MEDS: prednisoLONE 1% OPTH (PRED FORTE) 5 ML BTL OD SCH ×4 (07:47→20:10)
[2017-03-06] MEDS: TIMOLOL MALEATE 0.5% 5 ML (TIMOPTIC) BTL OU SCH ×2 (07:48→20:10)
[2017-03-06] MEDS: lisINopril 10 MG (PRINIVIL) TAB PO SCH (07:52)
[2017-03-06] MEDS: PANTOPRAZOLE 20 MG TABLET (PROTONIX) PO SCH ×2 (07:53→20:10)
--- NOTE | 2017-03-06 08:03 | PM & R (SOAP) Progress Note ---
Subjective Subjective/Events-last exam Patient was seen in her room this AM Patient min assist for transfers.Appreciate therapy notes Objective Exam Last Set of Vital Signs Vital Signs Date Time Temp Pulse Resp B/P (MAP) Pulse Ox O2 Delivery O2 Flow Rate FiO2 03/06/17 05:35 98.0 62 16 121/77 97 Room Air Capillary Refill : I&O Intake and Output 03/06/17 00:00 Intake Total 950 ml Balance 950 ml Intake Oral 950 ml # Voids 4 # Bowel Movements 1 General: Alert, Cooperative, No Acute Distress HEENT: Atraumatic, PERRLA, EOMI, Mucous Memb Moist/[place], Other (aphasic) Neck: Supple, No JVD Lungs: Clear to Auscultation Heart: Regular Rate Abdomen: Normal Bowel Sounds, Soft, No Tenderness Extremities: No Edema Neuro: Other (rt HP and aphasia) Assessment/Plan Assessment 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
--- NOTE | 2017-03-06 10:59 | Physical Therapy Daily Note ---
PT Daily Note-Current Subjective Family is present in room and patient agrees to PT. Pain Numeric Pain Scale: 0-No Pain Location: No Pain Reported Mental Status Patient Orientation: Non-Verbal/Aphasic Transfers Functional [place] Measure 0=Not Assessed/NA 4=Minimal Assistance 1=Total Assistance 5=Supervision or Setup 2=Maximal Assistance 6=Modified [place] 3=Moderate Assistance 7=Complete IndependenceIRFPAI Quality Coding Scale 6 Independent with activity with or without an assistive device 5 Patient requires set up or clean up by helper. Patient completes activity by themselves 4 Supervision or touching assist (CGA). [place] provide cues , steadying assist 3 The helper provides less than half the effort to complete the activity 2 The helper provides more than half the effort to complete the activity 1 Dependent. The helper does all the effort to complete an activity 7 Patient refused to complete or attempt activity 9 The patient did not perform the activity before the current illness or injury 88 Not attempted due to Medical conditions or safety concerns Transfers (B, C, W/C) (FIM): 5 Scootin Sit to/from Stand: 5 Sit to Stand (QC): 4 Close SBA with gait belt in place Gait Training Does the Patient Walk?: Yes Gait (FIM): 5 Distance (FIM): 3=150 ft Distance: 150' x 2 Walk 10 feet (QC): 4 Walk 50 ft with 2 Turns(QC): 4 Walk 150 ft (QC): 4 Gait Level of Assist: 5 Gait Persons Needed: 1 Gait Assistive Device: FWW flexed hip, shuffle gait sequence. Assessment Patient was anxious to return to room to visit with family. Patient is progressing with treatment plan. PT Short Term Goals Short Term Goals Time Frame: Mar 01, 2017 Transfers (B,C,W/C) (FIM): 4 (mt 03/01/17) Gait (FIM): 4 Distance (FIM): 3=150 ft Gait Assistive Device: FWW Wheelchair Distance: 50' Stairs (FIM): 2 # of Steps: 4 PT Fpc Goals Utility Bagger Goals PT Utility Bagger Goals Time Frame: March 15, 2017 Transfers (B,C,W/C) (FIM): 6 Sit to Lying (QC): 6 Lying-Sitting on Side/Bed(QC): 6 Sit to Stand (QC): 6 Rollin Roll Left to Right (QC): 6 Chair/Wha-bb-Uonhg Xfer(QC): 6 Car Transfer (QC): 5 Does the Patient Walk: Yes Gait (FIM): 6 Gait distance (FIM): 3=150 ft Walk 10 feet (QC): 6 Walk 10ft-Uneven Surface(QC): 6 Walk 50ft with 2 Turns (QC): 6 Walk 150 ft (QC): 6 Gait Level of Assist: 6 Gait Assistive Device: FWW Does the Pt use WC or Scooter?: No Stairs (FIM): 5 # of Steps: 8 1 Step (curb) (QC): 6 4 Steps (QC): 5 12 Steps (QC): 9 Stairs Level Of Assist: 6 Picking up an Object (QC): 4 PT Plan Treatment/Plan Treatment Plan: Continue Plan of Care Treatment Plan: Bed Mobility, Education, Functional Activity [place], Functional Strength, Group Therapy, Gait, Safety, Therapeutic Exercise, Transfers Treatment Duration: March 15, 2017 Visits Per Week: 10-15 Minutes/Day (M-F): 60-90 Minutes/Day (Sat/Anders): prn Time/GCodes Time In: 1010 Time Out: 1020 Total Billed Treatment Time: 10 Total Billed Treatment 1 visit GT 10 min CHRISTIANNE HOWARD PT Mar 06, 2017 10:59
[2017-03-06 18:00] VITALS: BP 133/82
[2017-03-06] MEDS: SIMvastatin 40 MG (ZOCOR) TAB PO SCH (20:09)
[2017-03-06] MEDS: LATANOPROST 0.005% (XALATAN) OPHTH SOLN 2.5 ML OD SCH (20:10)
[2017-03-07 05:17] VITALS: BP 126/80
[2017-03-07] MEDS: LEVOTHYROXINE 75 MCG (LEVOTHROID) TABLET PO SCH (06:06)
[2017-03-07] MEDS: lisINopril 10 MG (PRINIVIL) TAB PO SCH ×2 (08:43→15:41)
[2017-03-07] MEDS: GABAPENTIN 300 MG (NEURONTIN) CAP PO SCH ×2 (08:43→20:15)
[2017-03-07] MEDS: DIGOXIN 0.125 MG (LANOXIN) TAB PO SCH ×2 (08:43→15:40)
[2017-03-07] MEDS: PANTOPRAZOLE 20 MG TABLET (PROTONIX) PO SCH ×2 (08:43→20:15)
[2017-03-07] MEDS: FOLIC ACID 1 MG TAB PO SCH ×2 (08:43→20:15)
[2017-03-07] MEDS: ATENOLOL 25 MG (TENORMIN) TAB PO SCH ×2 (08:44→15:41)
[2017-03-07] MEDS: APIXABAN 5 MG (ELIQUIS) TABLET PO SCH (08:51)
[2017-03-07] MEDS: BRIMONIDINE 0.2% (ALPHAGAN) OPHTH SOLN 5 ML BTL OU SCH ×3 (08:51→20:14)
[2017-03-07] MEDS: prednisoLONE 1% OPTH (PRED FORTE) 5 ML BTL OD SCH ×4 (08:52→20:14)
[2017-03-07] MEDS: TIMOLOL MALEATE 0.5% 5 ML (TIMOPTIC) BTL OU SCH ×2 (08:52→20:14)
[2017-03-07] MEDS: CYCLOPENTOLATE 1% (CYCLOGYL) 2 ML DROPS OD SCH (08:53)
[2017-03-07 17:47] VITALS: BP 126/76
[2017-03-07] MEDS: LATANOPROST 0.005% (XALATAN) OPHTH SOLN 2.5 ML OD SCH (20:14)
[2017-03-07] MEDS: SIMvastatin 40 MG (ZOCOR) TAB PO SCH (20:15)
[2017-03-08 05:45] VITALS: BP 107/62
[2017-03-08] MEDS: LEVOTHYROXINE 75 MCG (LEVOTHROID) TABLET PO SCH (06:18)
[2017-03-08] MEDS: PANTOPRAZOLE 20 MG TABLET (PROTONIX) PO SCH ×2 (08:43→20:26)
[2017-03-08] MEDS: DIGOXIN 0.125 MG (LANOXIN) TAB PO SCH (08:43)
[2017-03-08] MEDS: lisINopril 10 MG (PRINIVIL) TAB PO SCH (08:43)
[2017-03-08] MEDS: FOLIC ACID 1 MG TAB PO SCH ×2 (08:43→20:27)
[2017-03-08] MEDS: GABAPENTIN 300 MG (NEURONTIN) CAP PO SCH ×2 (08:43→20:26)
[2017-03-08] MEDS: ATENOLOL 25 MG (TENORMIN) TAB PO SCH (08:43)
[2017-03-08] MEDS: APIXABAN 5 MG (ELIQUIS) TABLET PO SCH ×2 (08:43→20:26)
--- NOTE | 2017-03-08 10:01 | Speech Therapy Daily Note ---
Speech Daily Progress Note Subjective The patient was seated upright in chair upon entrance. The patient greeted the clinician verbally and was agreeable to speech and language therapy on this date. Objective The patient demonstrated increased use of common phrases in response to the clinician's questions. Phrases produced on this date included, "Pretty good, I guess," "It's alright," "Good, I guess," "I liked it," and "I can't tell you." Phrase Completion: The patient was provided the initial portion of simple three word phrases. The patient was asked to complete the phrase. The patient was unable to complete the phrase with maximum clinician verbal cuing including phoneme prompting, functional use, and whole word repetition. Repetition of Single Words: The patient was unable to repeat single syllable bilabial words following clinician example. Confrontational Naming of ADL Items: The patient was unable to name common items included in ADL tasks (brush, toothbrush, tissues) regardless of maximum clinician verbal prompting. Assessment Assessment Current Status: Poor Progress Treatment Plan Continue Plan of Care Communication Comprehension: 2 Expression: 1 Social Cognition Social Interaction: 1 Problem Solvin Memory: 1 Speech Short Term Goals Short Term Goals Short Term Goals 1. The patient will demonstrate swallowing strategies with 80% accuracy and mild clinician verbal cueing. PROGRESSING, Minimal Improvement (03/08/2017). 2. The patient will demonstrate dysphagia strengthening exercises with 80% accuracy and mild clinician verbal cueing. PROGRESSING, Minimal Improvement () 3. The patient will repeat single, bilabial phonemes with 80% accuracy and maximum clinician verbal cueing. NOT PROGRESSING (03/08/2017) 4. The patient will identify common objects in a field of two. NOT PROGRESSING ( 03/08/2017) 5. The patient will display 80% accuracy with simple yes/no questions through pointing, head nods, or verbalizations. PROGRESSING, Fluctuating Accuracy (2016) Time Frame-STG: Four Weeks Speech Care Home Goals Care Home Goals 1. The patient will tolerate the least restrictive diet without signs/symptoms of aspiration or laryngeal penetration. 2. The patient will demonstrate improved expressive and receptive language for increased function and safety with ADL's in the least restrictive setting. Time Frame: Four Weeks Comprehension: 3 Expression: 2 Social Interaction: 3 Problem Solvin Memory: 2 Speech-Plan Treatment Plan Speech Therapy Treatment Plan: Continue Plan of Care Continued skilled speech pathology intervention to target functional expressive communication and electronics commodity manager. Treatment Duration: March 15, 2017 # of days/week Five. Visits Per Week: Five Minutes/Day (M-F): 30 Rehab Potential: Fair Safety Risks/Education Teaching Recipient: Patient Teaching Methods: Discussion Response to Teaching: Unable to Return Demonstration, Unable to Comprehend Education Topics Provided: Bilabial Practice Sheet, Orientation Strategies Time Speech Therapy Time In: 09:15 Speech Therapy Time Out: 09:45 Total Billed Time: 30 Billed Treatment Time 1RHETT ELIZABETH ST Mar 08, 2017 10:01
[2017-03-08] MEDS: BRIMONIDINE 0.2% (ALPHAGAN) OPHTH SOLN 5 ML BTL OU SCH ×3 (10:57→20:26)
[2017-03-08] MEDS: prednisoLONE 1% OPTH (PRED FORTE) 5 ML BTL OD SCH ×4 (10:57→20:25)
[2017-03-08] MEDS: TIMOLOL MALEATE 0.5% 5 ML (TIMOPTIC) BTL OU SCH ×2 (10:57→20:26)
[2017-03-08] MEDS: CYCLOPENTOLATE 1% (CYCLOGYL) 2 ML DROPS OD SCH (10:58)
--- NOTE | 2017-03-08 11:15 | Physical Therapy Daily Note ---
PT Daily Note-Current Subjective Pt. more verbal than last seen by this TRAFFIC SIGNAL TECHNICIAN. Smiles and works to express herself. States she missed having therapies on Wednesday and that she feels better when she is up moving regularly Pain Numeric Pain Scale: 0-No Pain Mental Status Patient Orientation: Non-Verbal/Aphasic Transfers Functional [place] Measure 0=Not Assessed/NA 4=Minimal Assistance 1=Total Assistance 5=Supervision or Setup 2=Maximal Assistance 6=Modified [place] 3=Moderate Assistance 7=Complete IndependenceIRFPAI Quality Coding Scale 6 Independent with activity with or without an assistive device 5 Patient requires set up or clean up by helper. Patient completes activity by themselves 4 Supervision or touching assist (CGA). [place] provide cues , steadying assist 3 The helper provides less than half the effort to complete the activity 2 The helper provides more than half the effort to complete the activity 1 Dependent. The helper does all the effort to complete an activity 7 Patient refused to complete or attempt activity 9 The patient did not perform the activity before the current illness or injury 88 Not attempted due to Medical conditions or safety concerns Transfers (B, C, W/C) (FIM): 5 Scootin Rollin Supine to/from Sit: 5 Sit to/from Stand: 5 Gait Training Does the Patient Walk?: Yes Gait (FIM): 4 Distance (FIM): 3=150 ft (x2) Gait Level of Assist: 4 Gait Persons Needed: 1 Gait Assistive Device: FWW needs skilled verbal instruction and and tactile cues as well for larger step length on right. as well as to look up and to tend right Exercises Supine Ex: Bridging, Ankle pumps, Quad Set, Rolling, Glut sets, Heel Slides, Short Arc Quads, Scooting, Straight leg raise, Hip abd/add Supine Reps: 12 NuStep Minutes: 10 NuStep Workload: 2 Treatments needs many cues to draw awareness to right hand and right side during all activities Assessment Current Status: Good Progress PT Short Term Goals Short Term Goals Time Frame: Mar 01, 2017 Transfers (B,C,W/C) (FIM): 4 (mt 03/01/17) Gait (FIM): 4 Distance (FIM): 3=150 ft Gait Assistive Device: FWW Wheelchair Distance: 50' Stairs (FIM): 2 # of Steps: 4 PT Spring Fitter Helper Goals Retirement Goals PT Spring Fitter Helper Goals Time Frame: March 15, 2017 Transfers (B,C,W/C) (FIM): 6 Sit to Lying (QC): 6 Lying-Sitting on Side/Bed(QC): 6 Sit to Stand (QC): 6 Rollin Roll Left to Right (QC): 6 Chair/Fny-gc-Sukxa Xfer(QC): 6 Car Transfer (QC): 5 Does the Patient Walk: Yes Gait (FIM): 6 Gait distance (FIM): 3=150 ft Walk 10 feet (QC): 6 Walk 10ft-Uneven Surface(QC): 6 Walk 50ft with 2 Turns (QC): 6 Walk 150 ft (QC): 6 Gait Level of Assist: 6 Gait Assistive Device: FWW Does the Pt use WC or Scooter?: No Stairs (FIM): 5 # of Steps: 8 1 Step (curb) (QC): 6 4 Steps (QC): 5 12 Steps (QC): 9 Stairs Level Of Assist: 6 Picking up an Object (QC): 4 PT Plan Treatment/Plan Treatment Plan: Continue Plan of Care Treatment Plan: Bed Mobility, Education, Functional Activity [place], Functional Strength, Group Therapy, Gait, Safety, Therapeutic Exercise, Transfers Treatment Duration: March 15, 2017 Visits Per Week: 10-15 Minutes/Day (M-F): 60-90 Minutes/Day (Sat/Anders): prn Safety Risks/Education Patient Education: Gait Training, Transfer Techniques, Correct Positioning, Safety Issues Teaching Recipient: Patient Teaching Methods: Demonstration, Discussion Response to Teaching: Verbalize Understanding, Return Demonstration, Reinforcement Needed Time/GCodes Time In: 1020 Time Out: 1105 Total Billed Treatment Time: 45 Total Billed Treatment 1,GT20m,EX15m,FA10m G Codes Necessary: MOISE Miranda TRAFFIC SIGNAL TECHNICIAN Mar 08, 2017 11:14
--- NOTE | 2017-03-08 14:42 | Therapy Group Daily Note ---
Therapy Daily Group Note Patient Education Topic Home Safety Exercises LE Seated Exercise, Sit to/from Stand, UE Exercise, Other (Voice Exercises) Other/Notes The patient attended a group therapy session on this date conducted by physical therapy, occupational therapy, and speech pathology. The patient's verbally introduced the patient to the group, as she was unable to following maximum verbal prompting by occupational therapist. Prior to the group activity , the patient participated in upper extremity seated exercise, lower extremity seated exercise, and voice exercises with moderate clinician verbal prompting and direct modeling. The session for group therapy included a problem solving activity regarding home safety. The patients were asked to incorporate upper extremity strength and coordination, as well as, lower body sitting to standing as they stood and tossed a hand bag onto a sign containing a "problem" in their home environment (throw rugs, cooking, wheeled chairs, etc.). The patient was asked to state whether the activity was safe or unsafe and why. The patient demonstrated fair good accuracy with this activity with maximum clinician verbal prompting. To improve accuracy of verbalizations, the patient was provided the information in yes/no format. The patient demonstrated adequate social skills throughout the session, actively participating and remaining on task. Start Time: 13:00 Stop Time: 14:15 Total Billed Treatment Time: 75 Total Billed Treatment 1, MATTHIEU MCKEON Mar 08, 2017 14:42
--- NOTE | 2017-03-08 14:55 | Occupational Ther Daily Note ---
OT Current Status-Daily Note Subjective Pt alert, sitting in recliner. Pt agreed to therapy. No c/o pain. Mental Status/Objective Patient Orientation: Person, Place, Time, Situation Functional [place] Measure 0=Not Assessed/NA 4=Minimal Assistance 1=Total Assistance 5=Supervision or Setup 2=Maximal Assistance 6=Modified [place] 3=Moderate Assistance 7=Complete [place] ADL-Treatment Functional [place] Measure 0=Not Assessed/NA 4=Minimal Assistance 1=Total Assistance 5=Supervision or Setup 2=Maximal Assistance 6=Modified [place] 3=Moderate Assistance 7=Complete IndependenceIRFPAI Quality Coding Scale 6 Independent with activity with or without an assistive device 5 Patient requires set up or clean up by helper. Patient completes activity by themselves 4 Supervision or touching assist (CGA). [place] provide cues , steadying assist 3 The helper provides less than half the effort to complete the activity 2 The helper provides more than half the effort to complete the activity 1 Dependent. The helper does all the effort to complete an activity 7 Patient refused to complete or attempt activity 9 The patient did not perform the activity before the current illness or injury 88 Not attempted due to Medical conditions or safety concerns Grooming (FIM): 4 (Pt stood at sink with FWW and SBA. Pt required cues to use appropriate tools for task.) Bathing (FIM): 5 (Set up with bathing then SBA for safety. Pt uses shower bench, grabbars, hand held shower to bathe self.) Bathing Location: L Arm, R Arm, L Upper Leg, R Upper Leg, L Lower Leg ( including foot), R Lower Leg (including foot), Chest, Abdomen, Buttocks, Perineal Area Upper Body (FIM): 5 (After set up, pt is able to dress upper body.) Lower Body Dressing (FIM): 4 (Cues to don R foot first. CGA to don over feet then SBA for hiking over hips. Dons L sock by self, assist to don R sock.) Toileting (FIM): 5 (Pt is able to manipulate clothing and cleanse self with SBA and cues when not sure what to do next.) Transfers (B, C, W/C) (FIM): 4 (Sit to stand from low surface pt requires min A then stand pivot transfers with SBA using FWW.) Toilet/Commode Transfer (FIM): 5 (Using BSC and grabbars pt transfers with SBA using FWW.) Shower Transfer(FIM): 5 (Using shower bench and grabbars, shower transfers with SBA using FWW.) Pt fatigues easily and appears to get dizzy with LE dressing. Pt LOB toward R side during lower body dressing. After therapy, pt sitting in recliner with call light/phone in reach. OT Short Term Goals Short Term Goals Time Frame: Mar 01, 2017 Eating(FIM): 5 Grooming(FIM): 5 Bathing(FIM): 4 Upper Body Dressing(FIM): 4 Lower Body Dressing(FIM): 4 Toileting(FIM): 4 Transfers (B,C,W/C) (FIM): 4 (mt 03/01/17) Toilet/Commode Transfer(FIM): 4 Shower Transfer(FIM): 4 Additional Short Term Goals: 2-Verbalize Understanding, 3-ImproveStrength/[place] 1=Demonstrate adherence to instructed precautions during ADL tasks. 2=Patient will verbalize/demonstrate understanding of assistive devices/ modifications for ADL. 3=Patient will improve strength/tolerance for activity to enable patient to perform ADL's. OT Fci Goals Hoist Worker Goals Time Frame: March 15, 2017 Eating (FIM): 6 Eating (QC): 6 Groomin Oral Hygiene (QC): 6 Bathing(FIM): 5 Shower/Bathe Self (QC): 5 Upper Body Dressing(FIM): 5 Upper Body Dressing (QC): 5 Lower Body Dressing(FIM): 5 Lower Body Dressing (QC): 5 On/Off Footwear (QC): 5 Toileting(FIM): 6 Toileting Hygiene (QC): 6 Toilet/Commode Transfer(FIM): 6 Toilet/Commode Transfer (QC): 6 Shower Transfer(FIM): 6 Comprehension(FIM): 3 Expression (FIM): 2 Social Interaction(FIM): 3 Problem Solving(FIM): 2 Memory(FIM): 2 Additional Goals: 2-Verbalize Understanding, 3-ImproveStrength/[place] 1=Demonstrate adherence to instructed precautions during ADL tasks. 2=Patient will verbalize/demonstrate understanding of assistive devices/ modifications for ADL. 3=Patient will improve strength/tolerance for activity to enable patient to perform ADL's. OT Education/Plan Problem List/Assessment Pt would benefit from skilled OT to increase her independence in basic self care to allow her to return home safely with family and to decrease caregiver burden Discharge Recommendations Plan/Recommendations: Continue POC Treatment Plan/Plan of Care Patient would benefit from OT for education, treatment and training to promote independence in ADL's, mobility, safety and/or upper extremity function for ADL' s. Plan of Care: ADL Retraining, Functional Mobility, Group Exercise/Act as Ind ( education, exercise, functional acitivities, communication, memory, problem solving), UE Funct Exercise/Act, UE Neuromus Re-Ed/Coord, Visual/Perceptual Retrain Treatment Duration: March 15, 2017 Visits Per Week: 10-11 Minutes/Day (M-F): 75-90 Minutes/Day (Sat/Anders): PRN Agreement: Yes Rehab Potential: Fair Time/GCodes Start Time: 08:00 Stop Time: 09:00 Total Time Billed (hr/min): 60 Billed Treatment Time 1 visit-ADL 4 (60 min) HUSSEIN PERDOMO Mar 08, 2017 14:55
[2017-03-08 18:33] VITALS: BP 148/83
--- NOTE | 2017-03-08 18:59 | PM & R (SOAP) Progress Note ---
Subjective Subjective/Events-last exam Patient was seen in her room this AM Patient SBA for transfers Objective Exam Last Set of Vital Signs Vital Signs Date Time Temp Pulse Resp B/P (MAP) Pulse Ox O2 Delivery O2 Flow Rate FiO2 03/08/17 05:45 97.6 64 18 107/62 95 Room Air Capillary Refill : I&O Intake and Output 03/08/17 00:00 Intake Total 1040 ml Balance 1040 ml Intake Oral 1040 ml # Voids 8 # Bowel Movements 1 General: Alert, Cooperative, No Acute Distress HEENT: Atraumatic, PERRLA, EOMI, Mucous Memb Moist/[place], Other (aphasic) Neck: Supple, No JVD Lungs: Clear to Auscultation Heart: Regular Rate Abdomen: Normal Bowel Sounds, Soft, No Tenderness Extremities: No Edema Neuro: Other (rt HP and aphasia) Assessment/Plan Assessment 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
[2017-03-08] MEDS: LATANOPROST 0.005% (XALATAN) OPHTH SOLN 2.5 ML OD SCH (20:26)
[2017-03-08] MEDS: SIMvastatin 40 MG (ZOCOR) TAB PO SCH (20:27)
[2017-03-09 05:04] VITALS: BP 106/63
[2017-03-09] MEDS: LEVOTHYROXINE 75 MCG (LEVOTHROID) TABLET PO SCH (05:57)
[2017-03-09 08:12] VITALS: BP 120/75
[2017-03-09] MEDS: GABAPENTIN 300 MG (NEURONTIN) CAP PO SCH ×2 (08:13→20:07)
[2017-03-09] MEDS: FOLIC ACID 1 MG TAB PO SCH ×2 (08:13→20:07)
[2017-03-09] MEDS: PANTOPRAZOLE 20 MG TABLET (PROTONIX) PO SCH ×2 (08:13→20:07)
[2017-03-09] MEDS: APIXABAN 5 MG (ELIQUIS) TABLET PO SCH ×2 (08:13→20:07)
[2017-03-09] MEDS: ATENOLOL 25 MG (TENORMIN) TAB PO SCH (08:13)
[2017-03-09] MEDS: lisINopril 10 MG (PRINIVIL) TAB PO SCH (08:13)
[2017-03-09] MEDS: DIGOXIN 0.125 MG (LANOXIN) TAB PO SCH (08:13)
[2017-03-09] MEDS: prednisoLONE 1% OPTH (PRED FORTE) 5 ML BTL OD SCH ×4 (08:17→20:06)
[2017-03-09] MEDS: TIMOLOL MALEATE 0.5% 5 ML (TIMOPTIC) BTL OU SCH ×2 (08:17→20:06)
[2017-03-09] MEDS: BRIMONIDINE 0.2% (ALPHAGAN) OPHTH SOLN 5 ML BTL OU SCH ×3 (08:18→20:06)
[2017-03-09] MEDS: CYCLOPENTOLATE 1% (CYCLOGYL) 2 ML DROPS OD SCH (08:18)
--- NOTE | 2017-03-09 08:59 | Occupational Ther Daily Note ---
OT Current Status-Daily Note Subjective Pt alert, sitting in recliner finishing up breakfast. Pt agreed to therapy. No c/o pain. Mental Status/Objective Patient Orientation: Person, Place, Time, Situation Functional [place] Measure 0=Not Assessed/NA 4=Minimal Assistance 1=Total Assistance 5=Supervision or Setup 2=Maximal Assistance 6=Modified [place] 3=Moderate Assistance 7=Complete [place] ADL-Treatment After set up, pt is able to complete upper body dressing by self. Then required min A for assisting to don pants over R foot then SBA to finish donning pants. Pt is able to doff B socks, dons L sock by self, assist to don R sock. Pt then ambulated to sink to complete grooming standing at sink. Then transferred to toilet with SBA using FWW, grabbars and BSC. SBA cleansing and managing clothing using FWW. After therapy, ACCOUNTS RECEIVABLE EXECUTIVE took over care. Call light/ phone in reach. All needs met in room. Functional [place] Measure 0=Not Assessed/NA 4=Minimal Assistance 1=Total Assistance 5=Supervision or Setup 2=Maximal Assistance 6=Modified [place] 3=Moderate Assistance 7=Complete IndependenceIRFPAI Quality Coding Scale 6 Independent with activity with or without an assistive device 5 Patient requires set up or clean up by helper. Patient completes activity by themselves 4 Supervision or touching assist (CGA). [place] provide cues , steadying assist 3 The helper provides less than half the effort to complete the activity 2 The helper provides more than half the effort to complete the activity 1 Dependent. The helper does all the effort to complete an activity 7 Patient refused to complete or attempt activity 9 The patient did not perform the activity before the current illness or injury 88 Not attempted due to Medical conditions or safety concerns Grooming (FIM): 5 Oral Hygiene (QC): 5 Upper Body (FIM): 5 Lower Body Dressing (FIM): 4 Toileting (FIM): 5 Transfers (B, C, W/C) (FIM): 5 Toilet/Commode Transfer (FIM): 5 OT Short Term Goals Short Term Goals Time Frame: Mar 01, 2017 Eating(FIM): 5 Grooming(FIM): 5 Bathing(FIM): 4 Upper Body Dressing(FIM): 4 Lower Body Dressing(FIM): 4 Toileting(FIM): 4 Transfers (B,C,W/C) (FIM): 4 (mt 03/01/17) Toilet/Commode Transfer(FIM): 4 Shower Transfer(FIM): 4 Additional Short Term Goals: 2-Verbalize Understanding, 3-ImproveStrength/[place] 1=Demonstrate adherence to instructed precautions during ADL tasks. 2=Patient will verbalize/demonstrate understanding of assistive devices/ modifications for ADL. 3=Patient will improve strength/tolerance for activity to enable patient to perform ADL's. OT Usp Goals Stage Settings Painter Goals Time Frame: March 15, 2017 Eating (FIM): 6 Eating (QC): 6 Groomin Oral Hygiene (QC): 6 Bathing(FIM): 5 Shower/Bathe Self (QC): 5 Upper Body Dressing(FIM): 5 Upper Body Dressing (QC): 5 Lower Body Dressing(FIM): 5 Lower Body Dressing (QC): 5 On/Off Footwear (QC): 5 Toileting(FIM): 6 Toileting Hygiene (QC): 6 Toilet/Commode Transfer(FIM): 6 Toilet/Commode Transfer (QC): 6 Shower Transfer(FIM): 6 Comprehension(FIM): 3 Expression (FIM): 2 Social Interaction(FIM): 3 Problem Solving(FIM): 2 Memory(FIM): 2 Additional Goals: 2-Verbalize Understanding, 3-ImproveStrength/[place] 1=Demonstrate adherence to instructed precautions during ADL tasks. 2=Patient will verbalize/demonstrate understanding of assistive devices/ modifications for ADL. 3=Patient will improve strength/tolerance for activity to enable patient to perform ADL's. OT Education/Plan Problem List/Assessment Pt would benefit from skilled OT to increase her independence in basic self care to allow her to return home safely with family and to decrease caregiver burden Discharge Recommendations Plan/Recommendations: Continue POC Treatment Plan/Plan of Care Patient would benefit from OT for education, treatment and training to promote independence in ADL's, mobility, safety and/or upper extremity function for ADL' s. Plan of Care: ADL Retraining, Functional Mobility, Group Exercise/Act as Ind ( education, exercise, functional acitivities, communication, memory, problem solving), UE Funct Exercise/Act, UE Neuromus Re-Ed/Coord, Visual/Perceptual Retrain Treatment Duration: March 15, 2017 Visits Per Week: 10-11 Minutes/Day (M-F): 75-90 Minutes/Day (Sat/Anders): PRN Agreement: Yes Rehab Potential: Fair Time/GCodes Start Time: 08:00 Stop Time: 08:30 Total Time Billed (hr/min): 30 Billed Treatment Time 1 visit-ADL 2 (30 min) HUSSEIN PERDOMO Mar 09, 2017 08:59
--- NOTE | 2017-03-09 09:14 | Speech Therapy Daily Note ---
Speech Daily Progress Note Subjective The patient was seated upright in chair upon entrance. The patient greeted the clinician verbally and was agreeable to speech, language, and dysphagia therapy on this date. Objective The patient continued to demonstrate consistent use of common phrases in response to the clinician's questions. Phrases produced on this date included, "Sweetheart, I'm just not sure," "It went really well," and "Okay, I guess." Repetition of Single Words: The patient was unable to repeat single syllable bilabial words following clinician example. Confrontational Naming of ADL Items: The patient was unable to name common items included in ADL tasks (brush, toothbrush, tissues, glasses, cups) regardless of maximum clinician verbal prompting (direct modeling, field of two , initial phoneme). Yes/No: The patient's yes/no accuracy reduced throughout orientation tasks this date, regardless of use of the in-room white board. Patient demonstrated approximately 60% accuracy with this activity. PO Bolus Trials: The patient was re-evaluated with thin liquids on this date. The patient demonstrated an immediate throat clear following two of four teaspoon trials of thin liquid. No signs/symptoms of aspiration were demonstrated with teaspoon or cup sips of nectar-thick liquid. The patient consumed one bite of pudding, however, refused additional trials of pudding or solid consistencies. No signs/symptoms of aspiration were demonstrated with the puree bolus. Due to the throat clearing demonstrated with thin liquids, the clinician continues to recommend nectar-thick liquid consistencies. Assessment Assessment Current Status: Fair Progress Treatment Plan Continue Plan of Care Communication Comprehension: 2 Expression: 1 Social Cognition Social Interaction: 1 Problem Solvin Memory: 1 Speech Short Term Goals Short Term Goals Short Term Goals 1. The patient will demonstrate swallowing strategies with 80% accuracy and mild clinician verbal cueing. PROGRESSING, Minimal Improvement (03/08/2017). 2. The patient will demonstrate dysphagia strengthening exercises with 80% accuracy and mild clinician verbal cueing. PROGRESSING, Minimal Improvement () 3. The patient will repeat single, bilabial phonemes with 80% accuracy and maximum clinician verbal cueing. NOT PROGRESSING (03/08/2017) 4. The patient will identify common objects in a field of two. NOT PROGRESSING ( 03/08/2017) 5. The patient will display 80% accuracy with simple yes/no questions through pointing, head nods, or verbalizations. PROGRESSING, Fluctuating Accuracy (2016) Time Frame-STG: Four Weeks Speech Correction Goals Correction Goals 1. The patient will tolerate the least restrictive diet without signs/symptoms of aspiration or laryngeal penetration. 2. The patient will demonstrate improved expressive and receptive language for increased function and safety with ADL's in the least restrictive setting. Time Frame: Four Weeks Comprehension: 3 Expression: 2 Social Interaction: 3 Problem Solvin Memory: 2 Speech-Plan Treatment Plan Speech Therapy Treatment Plan: Continue Plan of Care Continue skilled speech pathology intervention to target swallowing safety and improved functional communication. Treatment Duration: March 15, 2017 # of days/week Five. Visits Per Week: Five Minutes/Day (M-F): 30 Rehab Potential: Fair Safety Risks/Education Teaching Recipient: Patient Teaching Methods: Demonstration, Discussion Response to Teaching: Unable to Return Demonstration, Unable to Comprehend Education Topics Provided: Bilabial Practice Sheet, Orientation Strategies Time Speech Therapy Time In: 08:30 Speech Therapy Time Out: 09:00 Total Billed Time: 30 Billed Treatment Time 1, SLBEATRIZ 1, MATTHIEU MELENDEZ Mar 09, 2017 09:14
--- NOTE | 2017-03-09 09:59 | Occupational Ther Daily Note ---
OT Current Status-Daily Note Subjective Pt alert, sitting in recliner. Pt agreed to therapy. No c/o pain at this time. Mental Status/Objective Patient Orientation: Person, Place, Non-Verbal/Aphasic, Time, Situation Functional [place] Measure 0=Not Assessed/NA 4=Minimal Assistance 1=Total Assistance 5=Supervision or Setup 2=Maximal Assistance 6=Modified [place] 3=Moderate Assistance 7=Complete [place] ADL-Treatment Functional [place] Measure 0=Not Assessed/NA 4=Minimal Assistance 1=Total Assistance 5=Supervision or Setup 2=Maximal Assistance 6=Modified [place] 3=Moderate Assistance 7=Complete IndependenceIRFPAI Quality Coding Scale 6 Independent with activity with or without an assistive device 5 Patient requires set up or clean up by helper. Patient completes activity by themselves 4 Supervision or touching assist (CGA). [place] provide cues , steadying assist 3 The helper provides less than half the effort to complete the activity 2 The helper provides more than half the effort to complete the activity 1 Dependent. The helper does all the effort to complete an activity 7 Patient refused to complete or attempt activity 9 The patient did not perform the activity before the current illness or injury 88 Not attempted due to Medical conditions or safety concerns Other Treatment Pt working on functional tasks. Demonstrated verbally and gesturally sequence of using microwave. Pt required verbal cues for each step and physical cues where to place hands to set time and open microwave door, LOB 1x. Pt unable to complete task without assistance. Pt then had questions about equipment, RODNEY and social group worker discussed with pt what was needed to make things safe after pt is discharged from rehab. Then worked on picking items up off the floor with CGA using FWW and physical cues for hand placement on FWW. After therapy, pt sitting in recliner with call light/phone in reach. All needs met in room. Education OT Patient Education: Safety issues, Transfer techniques Teaching Recipient: Patient Teaching Methods: Demonstration, Discussion Response to Teaching: Return Demonstration, Reinforcement Needed OT Short Term Goals Short Term Goals Time Frame: Mar 01, 2017 Eating(FIM): 5 Grooming(FIM): 5 Bathing(FIM): 4 Upper Body Dressing(FIM): 4 Lower Body Dressing(FIM): 4 Toileting(FIM): 4 Transfers (B,C,W/C) (FIM): 4 (mt 03/01/17) Toilet/Commode Transfer(FIM): 4 Shower Transfer(FIM): 4 Additional Short Term Goals: 2-Verbalize Understanding, 3-ImproveStrength/[place] 1=Demonstrate adherence to instructed precautions during ADL tasks. 2=Patient will verbalize/demonstrate understanding of assistive devices/ modifications for ADL. 3=Patient will improve strength/tolerance for activity to enable patient to perform ADL's. OT Economic Forecaster Goals Care Home Goals Time Frame: March 15, 2017 Eating (FIM): 6 Eating (QC): 6 Groomin Oral Hygiene (QC): 6 Bathing(FIM): 5 Shower/Bathe Self (QC): 5 Upper Body Dressing(FIM): 5 Upper Body Dressing (QC): 5 Lower Body Dressing(FIM): 5 Lower Body Dressing (QC): 5 On/Off Footwear (QC): 5 Toileting(FIM): 6 Toileting Hygiene (QC): 6 Toilet/Commode Transfer(FIM): 6 Toilet/Commode Transfer (QC): 6 Shower Transfer(FIM): 6 Comprehension(FIM): 3 Expression (FIM): 2 Social Interaction(FIM): 3 Problem Solving(FIM): 2 Memory(FIM): 2 Additional Goals: 2-Verbalize Understanding, 3-ImproveStrength/[place] 1=Demonstrate adherence to instructed precautions during ADL tasks. 2=Patient will verbalize/demonstrate understanding of assistive devices/ modifications for ADL. 3=Patient will improve strength/tolerance for activity to enable patient to perform ADL's. OT Education/Plan Problem List/Assessment Pt would benefit from skilled OT to increase her independence in basic self care to allow her to return home safely with family and to decrease caregiver burden Discharge Recommendations Plan/Recommendations: Continue POC Treatment Plan/Plan of Care Patient would benefit from OT for education, treatment and training to promote independence in ADL's, mobility, safety and/or upper extremity function for ADL' s. Plan of Care: ADL Retraining, Functional Mobility, Group Exercise/Act as Ind ( education, exercise, functional acitivities, communication, memory, problem solving), UE Funct Exercise/Act, UE Neuromus Re-Ed/Coord, Visual/Perceptual Retrain Treatment Duration: March 15, 2017 Visits Per Week: 10-11 Minutes/Day (M-F): 75-90 Minutes/Day (Sat/Anders): PRN Agreement: Yes Rehab Potential: Fair Time/GCodes Start Time: 09:00 Stop Time: 09:45 Total Time Billed (hr/min): 45 Billed Treatment Time 1 visit-FA 3 (45 min) HUSSEIN PERDOMO Mar 09, 2017 09:59
--- NOTE | 2017-03-09 11:08 | Physical Therapy Daily Note ---
PT Daily Note-Current Subjective Pt. is agreeable to Rx. Smiles and indicates she is ready and doing a little better. But at the end indicates she is fatigued and needs to rest. Pain Numeric Pain Scale: 0-No Pain Mental Status Patient Orientation: Non-Verbal/Aphasic Transfers Functional [place] Measure 0=Not Assessed/NA 4=Minimal Assistance 1=Total Assistance 5=Supervision or Setup 2=Maximal Assistance 6=Modified [place] 3=Moderate Assistance 7=Complete IndependenceIRFPAI Quality Coding Scale 6 Independent with activity with or without an assistive device 5 Patient requires set up or clean up by helper. Patient completes activity by themselves 4 Supervision or touching assist (CGA). [place] provide cues , steadying assist 3 The helper provides less than half the effort to complete the activity 2 The helper provides more than half the effort to complete the activity 1 Dependent. The helper does all the effort to complete an activity 7 Patient refused to complete or attempt activity 9 The patient did not perform the activity before the current illness or injury 88 Not attempted due to Medical conditions or safety concerns Transfers (B, C, W/C) (FIM): 5 Scootin Rollin Supine to/from Sit: 5 Sit to/from Stand: 5 Gait Training Does the Patient Walk?: Yes Gait (FIM): 4 Distance (FIM): 3=150 ft (150x2) Gait Level of Assist: 4 Gait Persons Needed: 1 Gait Assistive Device: FWW very slow, continues to have difficulty tending right, very small step length right, constant skilled verbal instruction for step length and broader BRITTANY Exercises Supine Ex: Bridging, Ankle pumps, Quad Set, Rolling, Glut sets, Heel Slides, Short Arc Quads, Scooting, Straight leg raise, Hip abd/add Supine Reps: 12 Seated Therapy Exercises: Ankle pumps, Sit to stand, Long arc quads, Hip flexion Seated Reps: 10 NuStep Minutes: 10 NuStep Workload: 2 (to facilitate gait with equal stride and arm pattern) Assessment Current Status: Good Progress fatigues quickly PT Short Term Goals Short Term Goals Time Frame: Mar 01, 2017 Transfers (B,C,W/C) (FIM): 4 (mt 03/01/17) Gait (FIM): 4 Distance (FIM): 3=150 ft Gait Assistive Device: FWW Wheelchair Distance: 50' Stairs (FIM): 2 # of Steps: 4 PT Chcf Goals Chcf Goals PT Chcf Goals Time Frame: March 15, 2017 Transfers (B,C,W/C) (FIM): 6 Sit to Lying (QC): 6 Lying-Sitting on Side/Bed(QC): 6 Sit to Stand (QC): 6 Rollin Roll Left to Right (QC): 6 Chair/[id number] Xfer(QC): 6 Car Transfer (QC): 5 Does the Patient Walk: Yes Gait (FIM): 6 Gait distance (FIM): 3=150 ft Walk 10 feet (QC): 6 Walk 10ft-Uneven Surface(QC): 6 Walk 50ft with 2 Turns (QC): 6 Walk 150 ft (QC): 6 Gait Level of Assist: 6 Gait Assistive Device: FWW Does the Pt use WC or Scooter?: No Stairs (FIM): 5 # of Steps: 8 1 Step (curb) (QC): 6 4 Steps (QC): 5 12 Steps (QC): 9 Stairs Level Of Assist: 6 Picking up an Object (QC): 4 PT Plan Treatment/Plan Treatment Plan: Continue Plan of Care Treatment Plan: Bed Mobility, Education, Functional Activity [place], Functional Strength, Group Therapy, Gait, Safety, Therapeutic Exercise, Transfers Treatment Duration: March 15, 2017 Visits Per Week: 10-15 Minutes/Day (M-F): 60-90 Minutes/Day (Sat/Anders): prn Safety Risks/Education Patient Education: Gait Training, Transfer Techniques Teaching Recipient: Patient Teaching Methods: Demonstration Response to Teaching: Unable to Return Demonstration, Unable to Comprehend, Reinforcement Needed Time/GCodes Time In: 1015 Time Out: 1100 Total Billed Treatment Time: 45 Total Billed Treatment 1,EX15m,GT15m,FA15m G Codes Necessary: MOISE Miranda BURIAL VAULT DELIVERER AND INSTALLER Mar 09, 2017 11:08
--- NOTE | 2017-03-09 15:08 | Physical Therapy Daily Note ---
PT Daily Note-Current Subjective Up in chair, declines laying down in bed after Rx. Indicates she really likes to work and wants to work on walking Pain Numeric Pain Scale: 0-No Pain Mental Status Patient Orientation: Non-Verbal/Aphasic Transfers Functional [place] Measure 0=Not Assessed/NA 4=Minimal Assistance 1=Total Assistance 5=Supervision or Setup 2=Maximal Assistance 6=Modified [place] 3=Moderate Assistance 7=Complete IndependenceIRFPAI Quality Coding Scale 6 Independent with activity with or without an assistive device 5 Patient requires set up or clean up by helper. Patient completes activity by themselves 4 Supervision or touching assist (CGA). [place] provide cues , steadying assist 3 The helper provides less than half the effort to complete the activity 2 The helper provides more than half the effort to complete the activity 1 Dependent. The helper does all the effort to complete an activity 7 Patient refused to complete or attempt activity 9 The patient did not perform the activity before the current illness or injury 88 Not attempted due to Medical conditions or safety concerns sit to stand and sup to sit SBA to CGA Gait Training Gait Assistive Device: FWW [id number] slow, many repeated verbal cues look at her right foot to help facilitate bigger step length, pt with better success doing this Exercises Seated Therapy Exercises: Ankle pumps, Sit to stand, Long arc quads, Hip flexion Seated Reps: 12 Assessment Current Status: Good Progress gait improved with RE: step length, no ciarra LOB this date PT Short Term Goals Short Term Goals Time Frame: Mar 01, 2017 Transfers (B,C,W/C) (FIM): 4 (mt 03/01/17) Gait (FIM): 4 Distance (FIM): 3=150 ft Gait Assistive Device: FWW Wheelchair Distance: 50' Stairs (FIM): 2 # of Steps: 4 PT Mcc Goals Rigging Loft Repairer Goals PT Mcc Goals Time Frame: March 15, 2017 Transfers (B,C,W/C) (FIM): 6 Sit to Lying (QC): 6 Lying-Sitting on Side/Bed(QC): 6 Sit to Stand (QC): 6 Rollin Roll Left to Right (QC): 6 Chair/Zms-gw-Lpbsl Xfer(QC): 6 Car Transfer (QC): 5 Does the Patient Walk: Yes Gait (FIM): 6 Gait distance (FIM): 3=150 ft Walk 10 feet (QC): 6 Walk 10ft-Uneven Surface(QC): 6 Walk 50ft with 2 Turns (QC): 6 Walk 150 ft (QC): 6 Gait Level of Assist: 6 Gait Assistive Device: FWW Does the Pt use WC or Scooter?: No Stairs (FIM): 5 # of Steps: 8 1 Step (curb) (QC): 6 4 Steps (QC): 5 12 Steps (QC): 9 Stairs Level Of Assist: 6 Picking up an Object (QC): 4 PT Plan Treatment/Plan Treatment Plan: Continue Plan of Care Treatment Plan: Bed Mobility, Education, Functional Activity [place], Functional Strength, Group Therapy, Gait, Safety, Therapeutic Exercise, Transfers Treatment Duration: March 15, 2017 Visits Per Week: 10-15 Minutes/Day (M-F): 60-90 Minutes/Day (Sat/Anders): prn Safety Risks/Education Patient Education: Gait Training, Transfer Techniques Teaching Recipient: Patient, Primary Caregiver Teaching Methods: Discussion Response to Teaching: Verbalize Understanding, Reinforcement Needed Time/GCodes Time In: 1400 Time Out: 1430 Total Billed Treatment Time: 30 Total Billed Treatment 1,GT30m G Codes Necessary: MOISE Miranda CELL TECHNICIAN Mar 09, 2017 15:08
[2017-03-09 18:48] VITALS: BP 129/75
--- NOTE | 2017-03-09 19:16 | PM & R (SOAP) Progress Note ---
Subjective Subjective/Events-last exam Patient was seen in her room this AM Patient CGA for transfers.Speech gradually improving Objective Exam Last Set of Vital Signs Vital Signs Date Time Temp Pulse Resp B/P (MAP) Pulse Ox O2 Delivery O2 Flow Rate FiO2 03/09/17 08:12 81 120/75 Room Air 03/09/17 05:04 97.2 18 95 Capillary Refill : I&O Intake and Output 03/09/17 00:00 Intake Total 900 ml Balance 900 ml Intake Oral 900 ml # Voids 7 General: Alert, Cooperative, No Acute Distress HEENT: Atraumatic, PERRLA, EOMI, Mucous Memb Moist/[place], Other (aphasic) Neck: Supple, No JVD Lungs: Clear to Auscultation Heart: Regular Rate Abdomen: Normal Bowel Sounds, Soft, No Tenderness Extremities: No Edema Neuro: Other (rt HP and aphasia) Assessment/Plan Assessment 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
[2017-03-09] MEDS: LATANOPROST 0.005% (XALATAN) OPHTH SOLN 2.5 ML OD SCH (20:06)
[2017-03-09] MEDS: SIMvastatin 40 MG (ZOCOR) TAB PO SCH (20:07)
[2017-03-10 05:00] VITALS: BP 102/56
[2017-03-10] MEDS: LEVOTHYROXINE 75 MCG (LEVOTHROID) TABLET PO SCH (05:53)
[2017-03-10] MEDS: DIGOXIN 0.125 MG (LANOXIN) TAB PO SCH (08:23)
[2017-03-10] MEDS: GABAPENTIN 300 MG (NEURONTIN) CAP PO SCH ×2 (08:23→20:32)
[2017-03-10] MEDS: APIXABAN 5 MG (ELIQUIS) TABLET PO SCH ×2 (08:23→20:32)
[2017-03-10] MEDS: lisINopril 10 MG (PRINIVIL) TAB PO SCH (08:23)
[2017-03-10] MEDS: PANTOPRAZOLE 20 MG TABLET (PROTONIX) PO SCH ×2 (08:23→20:32)
[2017-03-10] MEDS: FOLIC ACID 1 MG TAB PO SCH ×2 (08:23→20:32)
[2017-03-10] MEDS: ATENOLOL 25 MG (TENORMIN) TAB PO SCH (08:23)
[2017-03-10] MEDS: CYCLOPENTOLATE 1% (CYCLOGYL) 2 ML DROPS OD SCH (08:24)
[2017-03-10] MEDS: BRIMONIDINE 0.2% (ALPHAGAN) OPHTH SOLN 5 ML BTL OU SCH ×3 (08:25→20:32)
[2017-03-10] MEDS: prednisoLONE 1% OPTH (PRED FORTE) 5 ML BTL OD SCH ×4 (08:25→20:32)
[2017-03-10] MEDS: TIMOLOL MALEATE 0.5% 5 ML (TIMOPTIC) BTL OU SCH ×2 (08:25→20:32)
--- NOTE | 2017-03-10 08:33 | Occupational Ther Daily Note ---
OT Current Status-Daily Note Subjective Pt alert, sitting up in recliner. Pt agreed to therapy. No c/o pain. Pt appeared a stressed and discussed the discharge plan with RODNEY. Mental Status/Objective Patient Orientation: Person, Place, Time, Situation Functional [place] Measure 0=Not Assessed/NA 4=Minimal Assistance 1=Total Assistance 5=Supervision or Setup 2=Maximal Assistance 6=Modified [place] 3=Moderate Assistance 7=Complete [place] ADL-Treatment Pt was able to go from sit to stand with SBA. RODNEY went over steps prior to pt retrieving clothing from closet. Pt was able to go to closet with SBA using FWW then retrieved clothing without cues with SBA, no LOB. Pt picked out clothing then transported back to chair. Pt fatigued with task, taking recovery break. NEURORADIOLOGIST took over care. Call light/phone in reach. All needs met in room. Functional [place] Measure 0=Not Assessed/NA 4=Minimal Assistance 1=Total Assistance 5=Supervision or Setup 2=Maximal Assistance 6=Modified [place] 3=Moderate Assistance 7=Complete IndependenceIRFPAI Quality Coding Scale 6 Independent with activity with or without an assistive device 5 Patient requires set up or clean up by helper. Patient completes activity by themselves 4 Supervision or touching assist (CGA). [place] provide cues , steadying assist 3 The helper provides less than half the effort to complete the activity 2 The helper provides more than half the effort to complete the activity 1 Dependent. The helper does all the effort to complete an activity 7 Patient refused to complete or attempt activity 9 The patient did not perform the activity before the current illness or injury 88 Not attempted due to Medical conditions or safety concerns OT Short Term Goals Short Term Goals Time Frame: Mar 01, 2017 Eating(FIM): 5 Grooming(FIM): 5 Bathing(FIM): 4 Upper Body Dressing(FIM): 4 Lower Body Dressing(FIM): 4 Toileting(FIM): 4 Transfers (B,C,W/C) (FIM): 4 (mt 03/01/17) Toilet/Commode Transfer(FIM): 4 Shower Transfer(FIM): 4 Additional Short Term Goals: 2-Verbalize Understanding, 3-ImproveStrength/[place] 1=Demonstrate adherence to instructed precautions during ADL tasks. 2=Patient will verbalize/demonstrate understanding of assistive devices/ modifications for ADL. 3=Patient will improve strength/tolerance for activity to enable patient to perform ADL's. OT Chcf Goals Chcf Goals Time Frame: March 15, 2017 Eating (FIM): 6 Eating (QC): 6 Groomin Oral Hygiene (QC): 6 Bathing(FIM): 5 Shower/Bathe Self (QC): 5 Upper Body Dressing(FIM): 5 Upper Body Dressing (QC): 5 Lower Body Dressing(FIM): 5 Lower Body Dressing (QC): 5 On/Off Footwear (QC): 5 Toileting(FIM): 6 Toileting Hygiene (QC): 6 Toilet/Commode Transfer(FIM): 6 Toilet/Commode Transfer (QC): 6 Shower Transfer(FIM): 6 Comprehension(FIM): 3 Expression (FIM): 2 Social Interaction(FIM): 3 Problem Solving(FIM): 2 Memory(FIM): 2 Additional Goals: 2-Verbalize Understanding, 3-ImproveStrength/[place] 1=Demonstrate adherence to instructed precautions during ADL tasks. 2=Patient will verbalize/demonstrate understanding of assistive devices/ modifications for ADL. 3=Patient will improve strength/tolerance for activity to enable patient to perform ADL's. OT Education/Plan Problem List/Assessment Pt would benefit from skilled OT to increase her independence in basic self care to allow her to return home safely with family and to decrease caregiver burden Discharge Recommendations Plan/Recommendations: Continue POC Treatment Plan/Plan of Care Patient would benefit from OT for education, treatment and training to promote independence in ADL's, mobility, safety and/or upper extremity function for ADL' s. Plan of Care: ADL Retraining, Functional Mobility, Group Exercise/Act as Ind ( education, exercise, functional acitivities, communication, memory, problem solving), UE Funct Exercise/Act, UE Neuromus Re-Ed/Coord, Visual/Perceptual Retrain Treatment Duration: March 15, 2017 Visits Per Week: 10-11 Minutes/Day (M-F): 75-90 Minutes/Day (Sat/Anders): PRN Agreement: Yes Rehab Potential: Fair Time/GCodes Start Time: 08:00 Stop Time: 08:15 Total Time Billed (hr/min): 15 Billed Treatment Time 1 visit-FA 1 (15 min) HUSSEIN PERDOMO Mar 10, 2017 08:33
--- NOTE | 2017-03-10 09:16 | Speech Therapy Daily Note ---
Speech Daily Progress Note Subjective The patient was seated upright in recliner upon entrance. The patient recently participated in Occupational Therapy, however, was unable to verbalize the activities she completed. The patient was agreeable to speech and language therapy via head nod to clinician. Objective As the patient is preparing for discharge on 03/11/2017, the clinician completed a reassessment of language and cognition tasks with the below results. - Orientation: The patient was unable to state her name to clinician. The patient was able to identify her name through yes/no verbal responses. The patient was unable to identify the year or day of week with yes/no verbal responses or head nods. The patient did state, "Gosh, I have no idea." and "I don't know what its going to be." The patient continued to make/keep limited eye contact with the clinician. - Repetition: The patient was unable to repeat single words, numbers, or orientation information following a clinician direct model. - Automatics: With maximum clinician verbal prompting and initial phoneme direct modeling, the patient was able to count to three verbally. The patient was unable to continue counting past three. - Confrontational Naming (Objects and Images): The patient was unable to identify an item or image regardless of maximum clinician cueing. Cueing included yes/no responses, functional use of the object, field of two, and eye gaze. - Sequencing/Problem Solving: The patient was provided her morning medication by the RN. The patient placed medication in oral cavity, however, was unable to initiate swallowing with provided liquid. The patient required maximum verbal prompting to take drink from cup for pills. The patient was asked to identify the accurate number for emergencies at home (911). The patient was unable to identify the number with maximum clinician cueing including visual prompts, the telephone, and direct modeling. Furthermore, the patient was unable to demonstrate how to reach out to her RN using the call light with maximum clinician cueing. - Yes/No (simple): The patient demonstrated decreased accuracy (less than 50%) with simple yes/no questions on this date. - Command Following: The patient was unable to follow simple, spoken one step commands. The patient was able to intermittently demonstrate one-step commands with a direct model. - Reading/Writing: The patient was unable to locate a single word in a field of two. The patient was unable to write her name or draw a clock face regardless of maximum clinician cueing. 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 Assessment Assessment Current Status: Poor Progress Treatment Plan Continue Plan of Care Communication Comprehension: 2 Expression: 1 Social Cognition Social Interaction: 1 Problem Solvin Memory: 1 Speech Short Term Goals Short Term Goals Short Term Goals 1. The patient will demonstrate swallowing strategies with 80% accuracy and mild clinician verbal cueing. PROGRESSING, Minimal Improvement (03/08/2017). 2. The patient will demonstrate dysphagia strengthening exercises with 80% accuracy and mild clinician verbal cueing. PROGRESSING, Minimal Improvement () 3. The patient will repeat single, bilabial phonemes with 80% accuracy and maximum clinician verbal cueing. NOT PROGRESSING (03/08/2017) 4. The patient will identify common objects in a field of two. NOT PROGRESSING ( 03/08/2017) 5. The patient will display 80% accuracy with simple yes/no questions through pointing, head nods, or verbalizations. PROGRESSING, Fluctuating Accuracy (2016) Time Frame-STG: Four Weeks Speech Metals Sales Representative Goals Assisted Goals 1. The patient will tolerate the least restrictive diet without signs/symptoms of aspiration or laryngeal penetration. 2. The patient will demonstrate improved expressive and receptive language for increased function and safety with ADL's in the least restrictive setting. Time Frame: Four Weeks Comprehension: 3 Expression: 2 Social Interaction: 3 Problem Solvin Memory: 2 Speech-Plan Treatment Plan Speech Therapy Treatment Plan: Continue Plan of Care Continue skilled speech pathology to target functional communication ( expressive and receptive language), as well as, swallowing safety. Treatment Duration: March 15, 2017 # of days/week Five. Visits Per Week: Five Minutes/Day (M-F): 30 Rehab Potential: Poor Safety Risks/Education Teaching Recipient: Patient Teaching Methods: Demonstration, Discussion Response to Teaching: Unable to Return Demonstration, Unable to Comprehend Education Topics Provided: Results, Recommendations, Orientation Strategies Time Speech Therapy Time In: 08:15 Speech Therapy Time Out: 08:45 Total Billed Time: 30 Billed Treatment Time RHETT Kyle ELIZABETH Mar 10, 2017 09:16
--- NOTE | 2017-03-10 09:42 | Occupational Ther Daily Note ---
OT Current Status-Daily Note Subjective Pt alert, finished up with [facility] [employer]. Pt agreed to therapy. No c/o pain at this time. Mental Status/Objective Patient Orientation: Person, Place, Non-Verbal/Aphasic, Time, Situation Functional [place] Measure 0=Not Assessed/NA 4=Minimal Assistance 1=Total Assistance 5=Supervision or Setup 2=Maximal Assistance 6=Modified [place] 3=Moderate Assistance 7=Complete [place] ADL-Treatment Pt fatigues easily and needs to take recovery break. When pt is fatigued, pt tends have LOB toward R side and has increasing difficulty sequencing steps of task and verbalizing needs or wants. Pt tends to get frustrated though continues to attempt to communicate, needs to take a break to refocus and calm. Pt appears to do better with completing tasks if decreased verbage is used and increased time to process request. When pt is given direction (take shower, use toilet) pt will initiate and complete though is slow in movements. If pt does not understand or gets 'stuck' pt will ask what to do next. After therapy , pt sitting in recliner with call light/phone in reach. All needs met in room. Functional [place] Measure 0=Not Assessed/NA 4=Minimal Assistance 1=Total Assistance 5=Supervision or Setup 2=Maximal Assistance 6=Modified [place] 3=Moderate Assistance 7=Complete IndependenceIRFPAI Quality Coding Scale 6 Independent with activity with or without an assistive device 5 Patient requires set up or clean up by helper. Patient completes activity by themselves 4 Supervision or touching assist (CGA). [place] provide cues , steadying assist 3 The helper provides less than half the effort to complete the activity 2 The helper provides more than half the effort to complete the activity 1 Dependent. The helper does all the effort to complete an activity 7 Patient refused to complete or attempt activity 9 The patient did not perform the activity before the current illness or injury 88 Not attempted due to Medical conditions or safety concerns Eating (FIM): 5 (Set up, pt is able to use utensils to feed self if placed within sight. Pt has neglect with R lower quadrant.) Eating (QC): 5 (Set up, pt is able to use utensils to feed self if placed within sight. Pt has neglect with R lower quadrant.) Grooming (FIM): 5 (Pt is able to complete standing at sink with supervision for safety. Pt may need cues to find grooming tools.) Oral Hygiene (QC): 4 (Standing at sink with supervision for safety. Pt is able to complete all by self.) Bathing (FIM): 5 (Pt requires set up (putting soap on wash cloth, placing shampoo in hand). Using shower bench, hand held shower and grabbars pt is able to complete with supervision for safety.) Bathing Location: L Arm, R Arm, L Upper Leg, R Upper Leg, L Lower Leg ( including foot), R Lower Leg (including foot), Chest, Abdomen, Buttocks, Perineal Area Shower/Bathe Self (QC): 4 (Pt requires set up (putting soap on wash cloth, placing shampoo in hand). Using shower bench, hand held shower and grabbars pt is able to complete with supervision for safety.) Upper Body (FIM): 5 (Supervision when retrieving clothes in earlier session and recovery break. Pt dressed upper body by self.) Upper Body Dressing (QC): 4 (Supervision when retrieving clothes in earlier session and recovery break. Pt dressed upper body by self.) Lower Body Dressing (FIM): 4 (Supervision when retrieving clothes in earlier session and recovery break. Pt donned/doffed briefs and pants with supervision then requires assistance to don socks. Doff socks by self. Pt has demonstrated LOB toward R side when hiking pants over hips.) Lower Body Dressing (QC): 3 (Supervision when retrieving clothes in earlier session and recovery break. Pt donned/doffed briefs and pants with supervision then requires assistance to don socks. Doff socks by self. Pt has demonstrated LOB toward R side when hiking pants over hips.) On/Off Footwear (QC): 3 (Doff socks by self. Assist to don sock. Pt is inconsistent with donning L sock by self.) Toileting (FIM): 5 (Pt is able to manipulate clothing and cleanse self after toileting with SBA.) Toileting Hygiene (QC): 4 (Pt is able to manipulate clothing and cleanse self after toileting with SBA.) Transfers (B, C, W/C) (FIM): 4 (When standing from a low surface pt requires CGA. Pt is able to complete with SBA from elevated surface.) Toilet/Commode Transfer (FIM): 5 (SBA using BSC and grabbars to complete transfer.) Toilet Transfer (QC): 4 (SBA using BSC and grabbars to complete transfer.) Shower Transfer(FIM): 5 (Using FWW, shower bench and grabbars pt is able to complete with SBA.) Pt not introduced to AE to don socks due to decreased sequencing skills. OT Short Term Goals Short Term Goals Time Frame: Mar 01, 2017 Eating(FIM): 5 (met-03/10/2017) Grooming(FIM): 5 (met03/10/2017) Bathing(FIM): 4 (met03/10/2017) Upper Body Dressing(FIM): 4 (met03/10/2017) Lower Body Dressing(FIM): 4 (met03/10/2017) Toileting(FIM): 4 (met03/10/2017) Transfers (B,C,W/C) (FIM): 4 (mt 03/01/17) Toilet/Commode Transfer(FIM): 4 (met03/10/2017) Shower Transfer(FIM): 4 (met03/10/2017) Additional Short Term Goals: 2-Verbalize Understanding, 3-ImproveStrength/[place] 1=Demonstrate adherence to instructed precautions during ADL tasks. 2=Patient will verbalize/demonstrate understanding of assistive devices/ modifications for ADL. 3=Patient will improve strength/tolerance for activity to enable patient to perform ADL's. OT Container Packer Operator Goals Container Packer Operator Goals Time Frame: March 15, 2017 Eating (FIM): 6 (not met) Eating (QC): 6 (not met) Groomin (not met) Oral Hygiene (QC): 6 (not met) Bathing(FIM): 5 (met-03/10/2017) Shower/Bathe Self (QC): 5 (not met) Upper Body Dressing(FIM): 5 (met-03/10/2017) Upper Body Dressing (QC): 5 (met03/10/2017) Lower Body Dressing(FIM): 5 (not met) Lower Body Dressing (QC): 5 (not met) On/Off Footwear (QC): 5 (not met) Toileting(FIM): 6 (not met) Toileting Hygiene (QC): 6 (not met) Toilet/Commode Transfer(FIM): 6 (not met) Toilet/Commode Transfer (QC): 6 (not met) Shower Transfer(FIM): 6 (not met) Comprehension(FIM): 3 Expression (FIM): 2 Social Interaction(FIM): 3 Problem Solving(FIM): 2 Memory(FIM): 2 Additional Goals: 2-Verbalize Understanding, 3-ImproveStrength/[place] 1=Demonstrate adherence to instructed precautions during ADL tasks. 2=Patient will verbalize/demonstrate understanding of assistive devices/ modifications for ADL. 3=Patient will improve strength/tolerance for activity to enable patient to perform ADL's. OT Education/Plan Problem List/Assessment Pt would benefit from skilled OT to increase her independence in basic self care to allow her to return home safely with family and to decrease caregiver burden Discharge Recommendations Plan/Recommendations: Continue POC Therapy D/C Recommendations: Bath Aide, Occupational Therapy Home Care, Nursing Home (TCU/NH) Treatment Plan/Plan of Care Patient would benefit from OT for education, treatment and training to promote independence in ADL's, mobility, safety and/or upper extremity function for ADL' s. Plan of Care: ADL Retraining, Functional Mobility, Group Exercise/Act as Ind ( education, exercise, functional acitivities, communication, memory, problem solving), UE Funct Exercise/Act, UE Neuromus Re-Ed/Coord, Visual/Perceptual Retrain Treatment Duration: March 15, 2017 Visits Per Week: 10-11 Minutes/Day (M-F): 75-90 Minutes/Day (Sat/Anders): PRN Agreement: Yes Rehab Potential: Poor Time/GCodes Start Time: 08:45 Stop Time: 09:45 Total Time Billed (hr/min): 60 Billed Treatment Time 1 visit-ADL 4 (60 min) HUSSEIN PERDOMO Mar 10, 2017 09:42
--- NOTE | 2017-03-10 11:05 | Physical Therapy Daily Note ---
PT Daily Note-Current Subjective Pt. smiles and agrees to rx. Long explanation from this PCA explaining her CVA as well as her progress and the DC plans. Pt. states " I know, I leave tomorrow " Pain Numeric Pain Scale: 0-No Pain Mental Status Patient Orientation: Non-Verbal/Aphasic pt. does communicate more often and mostly accurate, but still has much difficulty with communication Transfers Functional [place] Measure 0=Not Assessed/NA 4=Minimal Assistance 1=Total Assistance 5=Supervision or Setup 2=Maximal Assistance 6=Modified [place] 3=Moderate Assistance 7=Complete IndependenceIRFPAI Quality Coding Scale 6 Independent with activity with or without an assistive device 5 Patient requires set up or clean up by helper. Patient completes activity by themselves 4 Supervision or touching assist (CGA). [place] provide cues , steadying assist 3 The helper provides less than half the effort to complete the activity 2 The helper provides more than half the effort to complete the activity 1 Dependent. The helper does all the effort to complete an activity 7 Patient refused to complete or attempt activity 9 The patient did not perform the activity before the current illness or injury 88 Not attempted due to Medical conditions or safety concerns Transfers (B, C, W/C) (FIM): 4 Scootin Rollin Supine to/from Sit: 4 (needed some CGA and encouragement this date rolling to right and up to sit) Sit to/from Stand: 5 Bed to/from Chair: 4 Gait Training Does the Patient Walk?: Yes Gait (FIM): 4 Distance (FIM): 3=150 ft (150x2) Gait Level of Assist: 4 Gait Persons Needed: 1 Gait Assistive Device: FWW gait is very slow, pt. seems to do best if cues to look at her right foot to equalize step lengths Stair Training Stair Training: Handrails/: 2 handrails Stairs (FIM): 2 #of Steps: 4 Stairs: Pattern: Step to Level of Assist: 3 pt. needed YAVAPAI-APACHE and some tactile guidance for feet as well. had difficulty following sequence as well but was able to hold wt with either foot advanced Exercises Supine Ex: Bridging, Ankle pumps, Quad Set, Rolling, Glut sets, Lower trunk rotation, Heel Slides, Short Arc Quads, Scooting, Straight leg raise, Hip abd/ add Supine Reps: 15 Seated Therapy Exercises: Ankle pumps, Sit to stand, Long arc quads, Hip flexion Seated Reps: 15 Assessment Current Status: Good Progress PT Short Term Goals Short Term Goals Time Frame: Mar 01, 2017 Transfers (B,C,W/C) (FIM): 4 (mt 03/01/17) Gait (FIM): 4 Distance (FIM): 3=150 ft Gait Assistive Device: FWW Wheelchair Distance: 50' Stairs (FIM): 2 # of Steps: 4 PT Director [employer] Goals Fci Goals PT Fci Goals Time Frame: March 15, 2017 Transfers (B,C,W/C) (FIM): 6 Sit to Lying (QC): 6 Lying-Sitting on Side/Bed(QC): 6 Sit to Stand (QC): 6 Rollin Roll Left to Right (QC): 6 Chair/Uxm-zn-Ctndv Xfer(QC): 6 Car Transfer (QC): 5 Does the Patient Walk: Yes Gait (FIM): 6 Gait distance (FIM): 3=150 ft Walk 10 feet (QC): 6 Walk 10ft-Uneven Surface(QC): 6 Walk 50ft with 2 Turns (QC): 6 Walk 150 ft (QC): 6 Gait Level of Assist: 6 Gait Assistive Device: FWW Does the Pt use WC or Scooter?: No Stairs (FIM): 5 # of Steps: 8 1 Step (curb) (QC): 6 4 Steps (QC): 5 12 Steps (QC): 9 Stairs Level Of Assist: 6 Picking up an Object (QC): 4 PT Plan Treatment/Plan Treatment Plan: Continue Plan of Care Treatment Plan: Bed Mobility, Education, Functional Activity [place], Functional Strength, Group Therapy, Gait, Safety, Therapeutic Exercise, Transfers Treatment Duration: March 15, 2017 Visits Per Week: 10-15 Minutes/Day (M-F): 60-90 Minutes/Day (Sat/Anders): prn Safety Risks/Education Patient Education: Gait Training, Transfer Techniques, Steps Teaching Recipient: Patient Teaching Methods: Demonstration Response to Teaching: Unable to Return Demonstration (50%), Return Demonstration, Unable to Comprehend, Reinforcement Needed Time/GCodes Time In: 1015 Time Out: 1100 Total Billed Treatment Time: 45 Total Billed Treatment 1,GT15m,FA10m,EX20m G Codes Necessary: MOISE Miranda PCA Mar 10, 2017 11:05
--- NOTE | 2017-03-10 15:24 | Physical Therapy Daily Note ---
PT Daily Note-Current Subjective Pt in chair, agreeable to PT with encouragement from spouse. Mental Status Patient Orientation: Person Transfers Functional [place] Measure 0=Not Assessed/NA 4=Minimal Assistance 1=Total Assistance 5=Supervision or Setup 2=Maximal Assistance 6=Modified [place] 3=Moderate Assistance 7=Complete IndependenceIRFPAI Quality Coding Scale 6 Independent with activity with or without an assistive device 5 Patient requires set up or clean up by helper. Patient completes activity by themselves 4 Supervision or touching assist (CGA). [place] provide cues , steadying assist 3 The helper provides less than half the effort to complete the activity 2 The helper provides more than half the effort to complete the activity 1 Dependent. The helper does all the effort to complete an activity 7 Patient refused to complete or attempt activity 9 The patient did not perform the activity before the current illness or injury 88 Not attempted due to Medical conditions or safety concerns Transfers (B, C, W/C) (FIM): 4 Roll Left to Right (QC): 5 Supine to/from Sit: 4 Sit to/from Stand: 4 Sit to Lying (QC): 4 Sit to Stand (QC): 4 Chair/Alc-jf-Jupip Xfer(QC): 4 Weight Bearing Weight Bearing Restriction: Full Weight Bearing Location Restriction: LE Bilateral Gait Training Does the Patient Walk?: Yes Gait (FIM): 4 Distance (FIM): 3=150 ft Distance: 150 Walk 10 feet (QC): 4 Walk 50 ft with 2 Turns(QC): 4 Walk 150 ft (QC): 4 Gait Level of Assist: 4 Gait Persons Needed: 1 Gait Assistive Device: FWW CGA for safety with frequent VCS for (R) foot clearance, step length. Wheelchair Training Does the Pt Use a Wheelchair?: No Exercises Supine->sit to (R): min A x 1 NuStep Minutes: 8 NuStep Workload: 3 Treatments Gait training, NuStep for functional strengthening, (B) LE/UE integration Assessment Current Status: Good Progress Pt tolerated well. Very fatigued at end of 150'. Frequent skilled VCS for (R) step length, clearance and safety. PT Short Term Goals Short Term Goals Time Frame: Mar 01, 2017 Transfers (B,C,W/C) (FIM): 4 (mt 03/01/17) Gait (FIM): 4 Distance (FIM): 3=150 ft Gait Assistive Device: FWW Wheelchair Distance: 50' Stairs (FIM): 2 # of Steps: 4 PT Laminating Press Operator Goals Assisted Goals PT Assisted Goals Time Frame: March 15, 2017 Transfers (B,C,W/C) (FIM): 6 Sit to Lying (QC): 6 Lying-Sitting on Side/Bed(QC): 6 Sit to Stand (QC): 6 Rollin Roll Left to Right (QC): 6 Chair/Jct-po-Upoyo Xfer(QC): 6 Car Transfer (QC): 5 Does the Patient Walk: Yes Gait (FIM): 6 Gait distance (FIM): 3=150 ft Walk 10 feet (QC): 6 Walk 10ft-Uneven Surface(QC): 6 Walk 50ft with 2 Turns (QC): 6 Walk 150 ft (QC): 6 Gait Level of Assist: 6 Gait Assistive Device: FWW Does the Pt use WC or Scooter?: No Stairs (FIM): 5 # of Steps: 8 1 Step (curb) (QC): 6 4 Steps (QC): 5 12 Steps (QC): 9 Stairs Level Of Assist: 6 Picking up an Object (QC): 4 PT Plan Problem List Problem List: Activity Tolerance, Functional Strength, Safety, Balance, Gait, Transfer, Bed Mobility Treatment/Plan Treatment Plan: Continue Plan of Care Treatment Plan: Bed Mobility, Education, Functional Activity [place], Functional Strength, Group Therapy, Gait, Safety, Therapeutic Exercise, Transfers Treatment Duration: March 15, 2017 Visits Per Week: 10-15 Minutes/Day (M-F): 60-90 Minutes/Day (Sat/Anders): prn Safety Risks/Education Patient Education: Gait Training Teaching Recipient: Patient Teaching Methods: Discussion Response to Teaching: Reinforcement Needed Discharge Recommendations Barriers to Progress (R) neglect Time/GCodes Time In: 1345 Time Out: 1415 Total Billed Treatment Time: 30 Total Billed Treatment 1, Gt x 20', Ex x 10' G Codes Necessary: LB Pal[place]ios DPCharlee Mar 10, 2017 15:24
--- NOTE | 2017-03-10 15:37 | PM & R (SOAP) Progress Note ---
Subjective Subjective/Events-last exam Patient was seen in her room this AM Patient Min assist for transfers,Patient still with some urinary incontinence-most likely multifactorial Last U/A done Negative -Will recheck Review of Systems Genitourinary: Incontinence Objective Exam Last Set of Vital Signs Vital Signs Date Time Temp Pulse Resp B/P (MAP) Pulse Ox O2 Delivery O2 Flow Rate FiO2 03/10/17 05:00 98.6 59 16 102/56 100 Room Air Capillary Refill : I&O Intake and Output 03/10/17 00:00 Intake Total 1030 ml Balance 1030 ml Intake Oral 1030 ml # Voids 5 General: Alert, Cooperative, No Acute Distress HEENT: Atraumatic, PERRLA, EOMI, Mucous Memb Moist/[place], Other (aphasic) Neck: Supple, No JVD Lungs: Clear to Auscultation Heart: Regular Rate Abdomen: Normal Bowel Sounds, Soft, No Tenderness Extremities: No Edema Neuro: Other (rt HP and aphasia) Assessment/Plan Assessment 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
[2017-03-10 18:20] VITALS: BP 126/71
[2017-03-10] MEDS ORDERED: LISI10TA2 PO (19:21)
[2017-03-10] MEDS ORDERED: APIX5TAB PO (19:21)
[2017-03-10] MEDS ORDERED: TIMO5DRO5 OU (19:21)
[2017-03-10] MEDS: SIMvastatin 40 MG (ZOCOR) TAB PO SCH (20:32)
[2017-03-10] MEDS: LATANOPROST 0.005% (XALATAN) OPHTH SOLN 2.5 ML OD SCH (20:33)
[2017-03-11] MEDS: LEVOTHYROXINE 75 MCG (LEVOTHROID) TABLET PO SCH (05:49)
[2017-03-11 06:00] VITALS: BP 109/54
--- NOTE | 2017-03-11 08:08 | PM & R (SOAP) Progress Note ---
Subjective Subjective/Events-last exam Patient was seen in her room this AM with Nursing Patient min assist for transfers Patient remains on [place] thickened liquids due to dysphagia. Objective Exam Last Set of Vital Signs Vital Signs Date Time Temp Pulse Resp B/P (MAP) Pulse Ox O2 Delivery O2 Flow Rate FiO2 03/11/17 06:00 97.6 65 16 109/54 94 Room Air Capillary Refill : I&O Intake and Output 03/11/17 00:00 Intake Total 620 ml Balance 620 ml Intake Oral 620 ml # Voids 6 General: Alert, Cooperative, No Acute Distress HEENT: Atraumatic, PERRLA, EOMI, Mucous Memb Moist/[place], Other (aphasic) Neck: Supple, No JVD Lungs: Clear to Auscultation Heart: Regular Rate Abdomen: Normal Bowel Sounds, Soft, No Tenderness Extremities: No Edema Neuro: Other (rt HP and aphasia) Assessment/Plan Assessment 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
[2017-03-11] MEDS: prednisoLONE 1% OPTH (PRED FORTE) 5 ML BTL OD SCH ×2 (09:39→13:31)
[2017-03-11] MEDS: DIGOXIN 0.125 MG (LANOXIN) TAB PO SCH (09:40)
[2017-03-11] MEDS: CYCLOPENTOLATE 1% (CYCLOGYL) 2 ML DROPS OD SCH (09:40)
[2017-03-11] MEDS: PANTOPRAZOLE 20 MG TABLET (PROTONIX) PO SCH (09:41)
[2017-03-11] MEDS: lisINopril 10 MG (PRINIVIL) TAB PO SCH (09:41)
[2017-03-11] MEDS: ATENOLOL 25 MG (TENORMIN) TAB PO SCH (09:41)
[2017-03-11] MEDS: GABAPENTIN 300 MG (NEURONTIN) CAP PO SCH (09:41)
[2017-03-11] MEDS: APIXABAN 5 MG (ELIQUIS) TABLET PO SCH (09:41)
[2017-03-11] MEDS: FOLIC ACID 1 MG TAB PO SCH (09:41)
[2017-03-11] MEDS: TIMOLOL MALEATE 0.5% 5 ML (TIMOPTIC) BTL OU SCH (09:42)
[2017-03-11] MEDS: BRIMONIDINE 0.2% (ALPHAGAN) OPHTH SOLN 5 ML BTL OU SCH ×2 (09:42→13:30)
--- NOTE | 2017-03-11 13:36 | Therapy Team Discharge Summary ---
Therapy Discharge Summary Discharge Recommendations Date of Discharge Therapy D/C Recommendations: Bath Aide, Occupational Therapy Home Care, Custodial (TCU/NH) Occupational Therapy Pt seen for skilled OT to increase her independence in basic self care to allow her to return home safely with and decrease caregiver burden, after CVA with R sided weakness, aphasia and visual deficit. On admission she needed moderate assistance with eating, grooming, toilet transfers, and lower body dressing; dependant with toileting; min assist with upper body dressing and bathing. By discharge she was able to feed herself with setup; groom, bathe, toilet, dress her upper body with supervision; dress lower body with min assist. Equipment used included shower bench, grab bars, tall toilet or BSC, FWW. She does better with completing tasks if decreased verbiage is used and she is given increased time to process request. See tx plan for goals met. Pt is discharged to [facility] and continued OT is recommended. DC OT PT Half-Way Goals Orthodontist Assistant Goals PT Orthodontist Assistant Goals Time Frame: March 15, 2017 Transfers (B,C,W/C) (FIM): 6 Roll Left to Right (QC): 6 Sit to Lying (QC): 6 Lying-Sitting on Side/Bed(QC): 6 Sit to Stand (QC): 6 Chair/Dxj-sc-Pzikf Xfer(QC): 6 Car Transfer (QC): 5 Does the Patient Walk: Yes Gait (FIM): 6 Gait distance (FIM): 3=150 ft Walk 10 feet (QC): 6 Walk 10ft-Uneven Surface(QC): 6 Walk 50ft with 2 Turns (QC): 6 Walk 150 ft (QC): 6 Gait Level of Assist: 6 Gait Assistive Device: FWW Does the Pt use WC or Scooter?: No Stairs (FIM): 5 # of Steps: 8 1 Step (curb) (QC): 6 4 Steps (QC): 5 12 Steps (QC): 9 Stairs Level Of Assist: 6 Picking up an Object (QC): 4 OT Orthodontist Assistant Goals Half-Way Goals Time Frame: March 15, 2017 Eating (FIM): 6 (not met) Eating (QC): 6 (not met) Oral Hygiene (QC): 6 (not met) Grooming(FIM): 6 (not met) Bathing(FIM): 5 (met-03/10/2017) Shower/Bathe Self (QC): 5 (not met) Upper Body Dressing(FIM): 5 (met-03/10/2017) Upper Body Dressing (QC): 5 (met-03/10/2017) Lower Body Dressing(FIM): 5 (not met) Lower Body Dressing (QC): 5 (not met) On/Off Footwear (QC): 5 (not met) Toileting(FIM): 6 (not met) Toileting Hygiene (QC): 6 (not met) Toilet/Commode Transfer(FIM): 6 (not met) Toilet/Commode Transfer (QC): 6 (not met) Shower Transfer(FIM): 6 (not met) Comprehension(FIM): 3 Expression (FIM): 2 Social Interaction(FIM): 3 Problem Solving(FIM): 2 Memory(FIM): 2 Additional Goals: 2-Verbalize Understanding, 3-ImproveStrength/[place] 1=Demonstrate adherence to instructed precautions during ADL tasks. 2=Patient will verbalize/demonstrate understanding of assistive devices/ modifications for ADL. 3=Patient will improve strength/tolerance for activity to enable patient to perform ADL's. Speech Orthodontist Assistant Goals Half-Way Goals 1. The patient will tolerate the least restrictive diet without signs/symptoms of aspiration or laryngeal penetration. 2. The patient will demonstrate improved expressive and receptive language for increased function and safety with ADL's in the least restrictive setting. Time Frame: Four Weeks Comprehension: 3 Expression: 2 Social Interaction: 3 Problem Solvin Memory: 2 STEVEN JONES OT Mar 11, 2017 13:36
--- NOTE | 2017-03-11 14:08 | Therapy Team Discharge Summary ---
Therapy Discharge Summary Discharge Recommendations Date of Discharge Mar 11, 2017 at 13:45 Therapy D/C Recommendations: Bath Aide, Occupational Therapy Home Care, Fdc (TCU/NH) Speech-Language Pathology The patient was recently admitted to [facility] following a significant CVA. Upon admission, the patient demonstrated severe receptive and expressive aphasia. Skilled speech pathology focused on confrontational naming of ADL objects, swallowing strategies, dysphagia exercises, and expression of orientation/personal information. The patient demonstrated limited progress throughout her stay. At this time, the patient remains on a regular diet with nectar-thick liquids. The patient did not meet goals initially placed by clinician. Speech pathology treatment is recommended post discharge. The patient will be discharged from acute inpatient skilled speech therapy at this time. PT Care Home Goals Care Home Goals PT Care Home Goals Time Frame: March 15, 2017 Transfers (B,C,W/C) (FIM): 6 Roll Left to Right (QC): 6 Sit to Lying (QC): 6 Lying-Sitting on Side/Bed(QC): 6 Sit to Stand (QC): 6 Chair/Zww-ev-Oenjp Xfer(QC): 6 Car Transfer (QC): 5 Does the Patient Walk: Yes Gait (FIM): 6 Gait distance (FIM): 3=150 ft Walk 10 feet (QC): 6 Walk 10ft-Uneven Surface(QC): 6 Walk 50ft with 2 Turns (QC): 6 Walk 150 ft (QC): 6 Gait Level of Assist: 6 Gait Assistive Device: FWW Does the Pt use WC or Scooter?: No Stairs (FIM): 5 # of Steps: 8 1 Step (curb) (QC): 6 4 Steps (QC): 5 12 Steps (QC): 9 Stairs Level Of Assist: 6 Picking up an Object (QC): 4 OT Care Home Goals Care Home Goals Time Frame: March 15, 2017 Eating (FIM): 6 (not met) Eating (QC): 6 (not met) Oral Hygiene (QC): 6 (not met) Grooming(FIM): 6 (not met) Bathing(FIM): 5 (met-03/10/2017) Shower/Bathe Self (QC): 5 (not met) Upper Body Dressing(FIM): 5 (met-03/10/2017) Upper Body Dressing (QC): 5 (met-03/10/2017) Lower Body Dressing(FIM): 5 (not met) Lower Body Dressing (QC): 5 (not met) On/Off Footwear (QC): 5 (not met) Toileting(FIM): 6 (not met) Toileting Hygiene (QC): 6 (not met) Toilet/Commode Transfer(FIM): 6 (not met) Toilet/Commode Transfer (QC): 6 (not met) Shower Transfer(FIM): 6 (not met) Comprehension(FIM): 3 Expression (FIM): 2 Social Interaction(FIM): 3 Problem Solving(FIM): 2 Memory(FIM): 2 Additional Goals: 2-Verbalize Understanding, 3-ImproveStrength/[place] 1=Demonstrate adherence to instructed precautions during ADL tasks. 2=Patient will verbalize/demonstrate understanding of assistive devices/ modifications for ADL. 3=Patient will improve strength/tolerance for activity to enable patient to perform ADL's. Speech Care Home Goals Cereal Chemist Goals 1. The patient will tolerate the least restrictive diet without signs/symptoms of aspiration or laryngeal penetration. 2. The patient will demonstrate improved expressive and receptive language for increased function and safety with ADL's in the least restrictive setting. Time Frame: Four Weeks Comprehension: 3 (NOT MET) Expression: 2 (NOT MET) Social Interaction: 3 (NOT MET) Problem Solvin (NOT MET) Memory: 2 (NOT MET) MATTHIEU SALMON Mar 11, 2017 14:08
--- NOTE | 2017-03-11 14:47 | Therapy Team Discharge Summary ---
Therapy Discharge Summary Discharge Recommendations Date of Discharge Mar 11, 2017 at 13:45 Therapy D/C Recommendations: Bath Aide, Occupational Therapy Home Care, [facility] (TCU/NH) Physical Therapy Patient came to rehab following a CVA. Upon admission patient performed bed mobility with max to mod assist, ambulated 50 feet with mod assist and a rolling walker, and was not able to perform stairs. Patient has been performing bed mobility and transfer training, balance and endurance training, functional strengthening, stair training, gait training, and education. Patient has made fair progress but has not met any of her fpc goals. Now , patient performs bed mobility with standby to CGA, transfers with CGA, ambulates 150' with a rolling walker with CGA, and can go up and down 4 steps using 2 handrails with mod assist. Patient has been discharged from this facility and will be discharged from PT at this time. PT Detention Goals Lifeguard Goals PT Lifeguard Goals Time Frame: March 15, 2017 Transfers (B,C,W/C) (FIM): 6 Roll Left to Right (QC): 6 Sit to Lying (QC): 6 Lying-Sitting on Side/Bed(QC): 6 Sit to Stand (QC): 6 Chair/Tim-te-Thezw Xfer(QC): 6 Car Transfer (QC): 5 Does the Patient Walk: Yes Gait (FIM): 6 Gait distance (FIM): 3=150 ft Walk 10 feet (QC): 6 Walk 10ft-Uneven Surface(QC): 6 Walk 50ft with 2 Turns (QC): 6 Walk 150 ft (QC): 6 Gait Level of Assist: 6 Gait Assistive Device: FWW Does the Pt use WC or Scooter?: No Stairs (FIM): 5 # of Steps: 8 1 Step (curb) (QC): 6 4 Steps (QC): 5 12 Steps (QC): 9 Stairs Level Of Assist: 6 Picking up an Object (QC): 4 OT Lifeguard Goals Detention Goals Time Frame: March 15, 2017 Eating (FIM): 6 (not met) Eating (QC): 6 (not met) Oral Hygiene (QC): 6 (not met) Grooming(FIM): 6 (not met) Bathing(FIM): 5 (met-03/10/2017) Shower/Bathe Self (QC): 5 (not met) Upper Body Dressing(FIM): 5 (met-03/10/2017) Upper Body Dressing (QC): 5 (met-03/10/2017) Lower Body Dressing(FIM): 5 (not met) Lower Body Dressing (QC): 5 (not met) On/Off Footwear (QC): 5 (not met) Toileting(FIM): 6 (not met) Toileting Hygiene (QC): 6 (not met) Toilet/Commode Transfer(FIM): 6 (not met) Toilet/Commode Transfer (QC): 6 (not met) Shower Transfer(FIM): 6 (not met) Comprehension(FIM): 3 (NOT MET) Expression (FIM): 2 (NOT MET) Social Interaction(FIM): 3 (NOT MET) Problem Solving(FIM): 2 (NOT MET) Memory(FIM): 2 (NOT MET) Additional Goals: 2-Verbalize Understanding, 3-ImproveStrength/[place] 1=Demonstrate adherence to instructed precautions during ADL tasks. 2=Patient will verbalize/demonstrate understanding of assistive devices/ modifications for ADL. 3=Patient will improve strength/tolerance for activity to enable patient to perform ADL's. Speech Lifeguard Goals Lifeguard Goals 1. The patient will tolerate the least restrictive diet without signs/symptoms of aspiration or laryngeal penetration. 2. The patient will demonstrate improved expressive and receptive language for increased function and safety with ADL's in the least restrictive setting. Time Frame: Four Weeks Comprehension: 3 (NOT MET) Expression: 2 (NOT MET) Social Interaction: 3 (NOT MET) Problem Solvin (NOT MET) Memory: 2 (NOT MET) RETA PENA PT Mar 11, 2017 14:47
--- NOTE | 2017-03-17 09:21 | DISCHARGE SUMMARY ---
DATE OF SERVICE: HISTORY OF PRESENT ILLNESS: The patient is an 81-year-old female who was admitted to [facility] on 02/12/17 to the hospitalist service of Dr. Otto as she developed right-sided facial droop, hemiparesis and aphasia. She was not felt to be a candidate for TPA. An MRI of the brain did reveal findings consistent with evolving ischemic infarct involving the left temporal, parietal and occipital lobes, as well as putamen in left basal nuclei. No intracranial hemorrhage was demonstrated. The patient was followed by hospitalist service, as well as cardiology and medications were adjusted. Therapies were begun, and she was felt to be appropriate for inpatient rehabilitation. PAST MEDICAL HISTORY: History of hemorrhagic stroke in 2015, chronic atrial fibrillation, RA, hypertension, GERD, hypothyroidism on replacement. She has decreased vision in her right eye from glaucoma and rheumatoid arthritis involving several joints. She had been able to manage her basic self-cares needs with only a little help due to RA. 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 She lives in [place], [place]. The primary care physician is Dr. Enciso. MEDICAL COURSE: The patient was followed by Dr. Lerma and Dr. Otto and cardiology while on the rehab unit. Medications were adjusted as needed. She was afebrile during her stay. Her pulse was 88, 65 and irregular on 03/11, respirations 16, blood pressure 109/54, O2 saturation 94% on room air. The CBC on 02/16 showed a WBC 9.1, hemoglobin and hematocrit 13.3 and 41 and platelet count 243,000. Chemistries showed a low serum potassium of 2.8 on 02/16, replacement provided and it was 3.7 on 02/17. The BUN and creatinine was 25/0.65 on 02/17, calcium 8.8, magnesium 2.0, albumin 3.5 on 02/16. Urinalysis was negative on 02/18. Chest x-ray on 02/16 showed mild cardiomegaly. No acute abnormalities detected. She was seen by Dr. Maradiaga, licensing analyst, and had debridement for foot care for onychomycosis. Also noted, were hammer toes, peripheral neuropathy and hyperkeratosis. REHABILITATION COURSE/OT NOTES: Upon admission to rehab she needed moderate assistance with eating, grooming, toile transfers and lower body dressing. She was dependent for toileting, min assist with upper body dressing and bathing. By discharge, she was able to feed herself with set up. She could groom, bathe, toilet and dress her upper body with supervision and dress lower body with min assist. Equipment used include a shower bench, grab bars, tall toilet or bedside commode, front wheel walker. She did test better with completing tasks if decreased verbiage is used and she is given increased time to process request. She is being discharged to [facility] [place] for ongoing skilled therapy. She says her spouse did not feel he could provide the level of assistance needed by her upon discharge. SPEECH THERAPY NOTES: Upon admission the patient demonstrated severe receptive and expressive aphasia, dysphagia and exercises were provided. At the time of discharge the patient remains on a regular diet with nectar thick liquids. The patient did not meet all her goals. She still had impaired comprehension, expression interaction, and problem solving and memory. PT NOTES: Upon admission the patient performed bed mobility with max to mod assist. She ambulated 50 feet with mod assist with the wheeled walker and was not able to perform stairs. The patient has made fair progress but did not meet any of her long-term goals. Upon discharge, the patient performs bed mobility with standby assist, a contact guard, transfers with contact guard, could ambulate 50 feet with a wheeled walker with contact guard and could walk down 4 steps using 2 handrails with mod assist. DISCHARGE INSTRUCTIONS: The patient will have followup with PCP or correction physician. She is discharged to local halfway facility in her home area of [place]. Continue current diet as outlined above, regular with nectar thick liquids. She will have ongoing PT, OT and speech. DISCHARGE MEDICATIONS: 1. Eliquis 5 mg p.o. b.i.d. 2. Lisinopril 10 mg p.o. daily. 3. Timoptic eyedrops 1 drop both eyes b.i.d. 4. Atenolol 12.5 mg p.o. daily. 5. Lumigan 1 drop right eye q.h.s. 6. Combigan eyedrops 1 drop both eyes b.i.d. 7. Cyclogyl eyedrops 1 drop right eye daily. 8. Digoxin 125 mcg p.o. daily. 9. Folic acid 1 mg p.o. b.i.d. 10. Gabapentin 300 mg p.o. b.i.d. 11. Levothyroxine 75 mcg p.o. daily. 12. Methotrexate 25 mg p.o. q. week. 13. Omeprazole 20 mg p.o. b.i.d. 14. Prednisolone eyedrops 1 drop right eye q.i.d. 15. Simvastatin 40 mg p.o. q.h.s. DISCHARGE DIAGNOSES: 1. 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 2. Aphasia. 3. Dysphagia. 4. Persistent atrial fibrillation, controlled on medication. 5. Chronic atrial fibrillation. 6. Hypothyroidism on replacement. 7. Rheumatoid arthritis on Methotrexate weekly. 8. Gastroesophageal reflux disease on medication. 9. Hypokalemia, replaced. 10. Hypertension, controlled on medication. 11. Urinary incontinence, chronic with negative urinalysis. 12. Onychomycosis, status post debridement, Dr. Maradiaga, DPM. 13. Hammertoes. 14. Hyperkeratosis. 15. Peripheral neuropathy. CONDITION AT DISCHARGE: Improved and stable. PROGNOSIS: Appears fair for some continued improvement with ongoing skilled therapies; however, due to her age, deficits from her stroke and multiple comorbidities and cognitive impairment, she will most likely continue to require ongoing care at an extended care facility or perhaps at an assisted living facility that has enhanced care available. Job ID: [id number] DocumentID: [id number] Dictated Date: 03/16/2017 15:33:07 Song And Dance Performer Date: 03/17/2017 09:20:36 Dictated By: JESSI LERMA MD [facility]
--- OUTSIDE RECORDS SUMMARY | 2017-03-21 06:17 | XMS REPORT | Continuity of Care Document ---
Author Author [facility] Organization [facility] Address Unknown Phone Unavailable Care Team Providers Care Architectural Drafter Name Role Phone Jayne Vasquez PCP [phone] Source Comments Some departments are not documenting in the electronic medical record. If you do not see the information that you expected, contact Release of Information in the Health Information Management department at [phone] for further assistance in locating additional records.[facility] Active Allergies and Adverse Reactions Allergen Noted [...]
--- OUTSIDE RECORDS SUMMARY | 2017-03-21 06:17 | XMS REPORT | Continuity of Care Document ---
Author Author [facility] Organization [facility] Address Unknown Phone Unavailable Allergies Active Description Code Type Severity Reaction Onset Reported/Identified Relationship to Patient Clinical Status Yes iodine [id number] Drug Allergy Unknown N/A 10/12/2015 Yes lidocaine [id number] Drug Allergy Unknown N/A 10/12/2015 Medications Problems [...] SCOTT APRN Ot Y92.[address] IN [facility] NON-INSTITUT ( PRIVATE 10/12/2015 XAVIER SCOTT APRN Ot Y99.8 OTHER EXTERNAL CAUSE STATUS 02/12/2017 CITLALI PARHAM, ROSANGELA Ot 780.4 DIZZINESS AND GIDDINESS 02/12/2017 CITLALI PARHAM, ROSANGELA Ot 780.4 DIZZINESS AND GIDDINESS 02/12/2017 CITLALI PARHAM, ROSANGELA Ot 794.09 ABN HOUSEKEEPING MANAGER FUNCT STUDY NEC 02/12/2017 BRIGGS DO, CECILLE [...] Z99.81 DEPENDENCE ON SUPPLEMENTAL OXYGEN 02/23/2017 KAREN PARHAM, JESSI E Ot E03.9 HYPOTHYROIDISM, UNSPECIFIED 02/23/2017 KAREN PARHAM JESSI E Ot E87.6 HYPOKALEMIA 02/23/2017 KAREN PARHAM JESSI E Ot I10 ESSENTIAL (PRIMARY) HYPERTENSION 02/23/2017 RADHA JONES MDIC E Ot I48.1 PERSISTENT ATRIAL FIBRILLATION 02/23/2017 JESSI JONES MD E Ot I48.2 CHRONIC ATRIAL FIBRILLATION 02/23/2017 RADHA JONES MDIC E Ot I69.320 APHASIA FOLLOWING CEREBRAL INFARCTION 02/23/2017 RADHA JONES MDIC E Ot I69.351 HEMIPLGA FOLLOWING CEREBRAL INFRC AFF RI 02/23/2017 RADHA JONES MDIC E Ot I69.392 FACIAL WEAKNESS FOLLOWING CEREBRAL INFAR 02/23/2017 JESSI JONES MD E Ot K21.9 GASTRO-ESOPHAGEAL REFLUX DISEASE WITHOUT 02/23/2017 JESSI JONES MD E Ot M06.9 RHEUMATOID ARTHRITIS, UNSPECIFIED 02/25/2017 JESSI JONES MD E Ot E03.9 HYPOTHYROIDISM, UNSPECIFIED 02/25/2017 KAREN PARHAM JESSI E Ot E87.6 HYPOKALEMIA 02/25/2017 RADHA JONES MDIC E Ot I10 ESSENTIAL (PRIMARY) HYPERTENSION 02/25/2017 RADHA JONES MDIC E Ot I48.1 PERSISTENT ATRIAL FIBRILLATION 02/25/2017 RADHA JONES MDIC E Ot I48.2 CHRONIC ATRIAL FIBRILLATION 02/25/2017 RADHA JONES MDIC E Ot I69.320 APHASIA FOLLOWING CEREBRAL INFARCTION 02/25/2017 RADHA JONES MDIC E Ot I69.351 HEMIPLGA FOLLOWING CEREBRAL INFRC AFF RI 02/25/2017 RADHA JONES MDIC E Ot I69.392 FACIAL WEAKNESS FOLLOWING CEREBRAL INFAR 02/25/2017 JESSI JONES MD E Ot K21.9 GASTRO-ESOPHAGEAL REFLUX DISEASE WITHOUT 02/25/2017 JESSI JONES MD E Ot M06.9 RHEUMATOID ARTHRITIS, UNSPECIFIED 03/02/2017 JESSI JONES MD E Ot E03.9 HYPOTHYROIDISM, UNSPECIFIED 03/02/2017 RADHA JONES MDIC E Ot E87.6 HYPOKALEMIA 03/02/2017 RADHA JONES MDIC E Ot I10 ESSENTIAL (PRIMARY) HYPERTENSION 03/02/2017 RADHA JONES MDIC E Ot I48.1 PERSISTENT ATRIAL FIBRILLATION 03/02/2017 RADHA JONES MDIC E Ot I48.2 CHRONIC ATRIAL FIBRILLATION 03/02/2017 JESSI JONES MD E Ot I69.320 APHASIA FOLLOWING CEREBRAL INFARCTION 03/02/2017 JESSI JONES MD E Ot I69.351 HEMIPLGA FOLLOWING CEREBRAL INFRC AFF RI 03/02/2017 JESSI JONES MD E Ot I69.392 FACIAL WEAKNESS FOLLOWING CEREBRAL INFAR 03/02/2017 JESSI JONES MD E Ot K21.9 GASTRO-ESOPHAGEAL REFLUX DISEASE WITHOUT 03/02/2017 JESSI JONES MD Ot M06.9 RHEUMATOID ARTHRITIS, UNSPECIFIED 03/09/2017 JESSI JONES MD E Ot E03.9 HYPOTHYROIDISM, UNSPECIFIED 03/09/2017 JESSI JONES MD E Ot E87.6 HYPOKALEMIA 03/09/2017 JESSI JONES MD E Ot I10 ESSENTIAL (PRIMARY) HYPERTENSION 03/09/2017 JESSI JONES MD E Ot I48.1 PERSISTENT ATRIAL FIBRILLATION 03/09/2017 JESSI JONES MD E Ot I48.2 CHRONIC ATRIAL FIBRILLATION 03/09/2017 JESSI JONES MD E Ot I69.320 APHASIA FOLLOWING CEREBRAL INFARCTION 03/09/2017 JESSI JONES MD E Ot I69.351 HEMIPLGA FOLLOWING CEREBRAL INFRC AFF RI 03/09/2017 JESSI JONES MD E Ot I69.392 FACIAL WEAKNESS FOLLOWING CEREBRAL INFAR 03/09/2017 JESSI JONES MD Ot K21.9 GASTRO-ESOPHAGEAL REFLUX DISEASE WITHOUT 03/09/2017 JESSI JONES MD Ot M06.9 RHEUMATOID ARTHRITIS, UNSPECIFIED 03/11/2017 JESSI JONES MD E Ot B35.1 TINEA UNGUIUM 03/11/2017 JESSI JONES MD Ot E03.9 HYPOTHYROIDISM, UNSPECIFIED 03/11/2017 JESSI JONES MD E Ot E87.6 HYPOKALEMIA 03/11/2017 JESSI JONES MD E Ot I10 ESSENTIAL (PRIMARY) HYPERTENSION 03/11/2017 JESSI JONES MD E Ot I48.1 PERSISTENT ATRIAL FIBRILLATION 03/11/2017 RADHA JONES MDIC E Ot I48.2 CHRONIC ATRIAL FIBRILLATION 03/11/2017 JESSI JONES MD E Ot I69.320 APHASIA FOLLOWING CEREBRAL INFARCTION 03/11/2017 JESSI JONES MD E Ot I69.351 HEMIPLGA FOLLOWING CEREBRAL INFRC AFF RI 03/11/2017 JESSI JONES MD E Ot I69.392 FACIAL WEAKNESS FOLLOWING CEREBRAL INFAR 03/11/2017 JESSI JONES MD, Ot I69.891 DYSPHAGIA FOLLOWING OTHER CEREBROVASCULA 03/11/2017 JESSI JONES MD, Ot K21.9 GASTRO-ESOPHAGEAL REFLUX DISEASE WITHOUT 03/11/2017 JESSI JONES MD, Ot M06.9 RHEUMATOID ARTHRITIS, UNSPECIFIED 03/11/2017 JESSI JONES MD, Ot R13.10 DYSPHAGIA, UNSPECIFIED 03/11/2017 JESSI JONES MD, Ot R32 UNSPECIFIED URINARY INCONTINENCE Procedures Results Test Result Range Complete blood [...] Status Pt. Type Provider Facility Loc./Unit Complaint [id number] 02/15/2017 12:45:00 2016 13:45:00 DIS Outpatient JESSI JONES MD [facility] IRF CVA [id number] 02/12/2017 09:40:00 2016 13:00:00 DIS Inpatient CHESTER GALINDO CECILLE [facility] 4TH STROKE [id number] 10/12/2015 16:36:00 2014 18:55:00 DIS Emergency XAVIER SCOTT APRN [facility] ER CHIN LACERATION [id number] 03/07/2015 15:02:00 2014 23:59:59 CLS Outpatient ROSANGELA GODWIN MD [facility] RAD DIZZINESS [id number] 03/01/2015 13:31:00 2014 23:59:59 CLS Outpatient ROSANGELA GODWIN MD [facility] RAD DIZZINESS
== END 2017-03-11 13:45 | DRG 57 ==
LOC: ENPENDDIS 03-11 12:00
PROVIDERS: ADMIT Physical Medicine & Rehabilitation; ATTEND Physical Medicine & Rehabilitation
DX: I69.351 Hemiplegia and hemiparesis following cerebral infarction affecting right dominant side (principal); I69.392 Facial weakness following cerebral infarction; I69.891 Dysphagia following other cerebrovascular disease; R13.10 Dysphagia, unspecified; I69.320 Aphasia following cerebral infarction; I48.1 Persistent atrial fibrillation; I48.2 Chronic atrial fibrillation; R32 Unspecified urinary incontinence; I10 Essential (primary) hypertension; K21.9 Gastro-esophageal reflux disease without esophagitis; E03.9 Hypothyroidism, unspecified; M06.9 Rheumatoid arthritis, unspecified; E87.6 Hypokalemia; B35.1 Tinea unguium
CPT/HCPCS: 36415; 71020; 80048; 80053; 81000; 83735; 85025

== ENCOUNTER 2017-04-28 11:01 | Inpatient (IN) | payer MEDICARE ==
[~2017-04-28] VITALS: Ht 165.1 cm; Wt 65.6 kg
[~2017-04-28 11:01] MED LIST changes: +TIMO5DRO5 OU
[2017-04-28 13:26] VITALS: BP 129/71
--- NOTE | 2017-04-28 14:40 | Occupational Therapy Eval ---
OT Evaluation-General/PLF Medical Diagnosis Admission Date Apr 28, 2017 at 13:23 Medical Diagnosis: CVA Onset Date: Apr 21, 2017 Therapy Diagnosis Therapy Diagnosis: weakness, decr self care, decr funct use R UE, decr funct mobility Height/Weight Height (Feet): 5 Height (Inches): 5.00 Weight (Pounds): 141 Weight (Ounces): 9.0 Precautions Precautions/Isolations: Standard Precautions Referral Physician: Florentin Referral Reason: Evaluation/Treatment Medical History Pertinent Medical History: Atrial Fib, GERD, HTN, Hypothroidism, Rheumatoid Arthritis Additional Medical History Cardiomegaly, heart failure, CHF. CVA in January 2017 with stay on IRF. Loss of vision in R eye from glaucoma Current History 3 acute infarcts - L posterior frontal lobe, L basal ganglia, L anterior occipital lobe. Admitted to [facility] for acute care, then swing bed on 04-25-17. Had been home receiving PT, OT and ST Reviewed History: Yes Social History Current Living Status: Spouse ADL-Prior Level of Function ADL PLOF Comments Pt was able to manage her basic ADLs prior to stroke in January. When she left ARU she was able to feed herself with setup; groom, bathe, toilet, dress her upper body with supervision; dress lower body with min assist.She did better completing tasks if decreased verbiage was used and she was given increased time to process requests. is not here to describe current functional status. 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 Pain reported 0/10. Appearance Alert, cooperative. Recognized therapist from previous stay Current Glasses/Contacts: Yes Hearing Aids: No Dentures/Partials: No Hand Dominance: Right Upper Extremity ROM Grossly WFL bilat except R finger ext limited due to ulnar drift at MCPs and decreased extension at MCPs. Responds better to visual cues Upper Extremity Coordination Decreased coordination R hand Upper Extremity Sensation Unable to assess Upper Extremity Strength Grossly 4/5 bilat but with slight lag with R UE. Pt had difficulty tracking visually past midline to R side and appears to continue to have some visual field loss and/or neglect on R. 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 She could take both slipper socks off but fell toward her L side when putting sock on L side (with leg crossed). She did not need to toilet at this time but a BSC was brought into the room for her so she would have arm rests on both sides to help with transfers. PT noted from [facility] document min assist with transfers and walking about 150 ft with FWW. Functional [place] Measure 0=Not Assessed/NA 4=Minimal Assistance 1=Total Assistance 5=Supervision or Setup 2=Maximal Assistance 6=Modified [place] 3=Moderate Assistance 7=Complete IndependenceIRFPAI Quality Coding Scale 6 Independent with activity with or without an assistive device 5 Patient requires set up or clean up by helper. Patient completes activity by themselves 4 Supervision or touching assist (CGA). [place] provide cues , steadying assist 3 The helper provides less than half the effort to complete the activity 2 The helper provides more than half the effort to complete the activity 1 Dependent. The helper does all the effort to complete an activity 7 Patient refused to complete or attempt activity 9 The patient did not perform the activity before the current illness or injury 88 Not attempted due to Medical conditions or safety concerns Other Treatments Orientation to rehab process Education OT Patient Education: Purpose of tx/functional activities, Rehab process Teaching Recipient: Patient, Family Teaching Methods: Discussion Response to Teaching: Verbalize Understanding OT Short Term Goals Short Term Goals Time Frame: May 07, 2017 Eating(FIM): 5 Grooming(FIM): 4 Bathing(FIM): 4 Upper Body Dressing(FIM): 4 Lower Body Dressing(FIM): 4 Toileting(FIM): 4 Toilet/Commode Transfer(FIM): 4 Additional Short Term Goals: 2-Verbalize Understanding, 3-ImproveStrength/[place] 1=Demonstrate adherence to instructed precautions during ADL tasks. 2=Patient will verbalize/demonstrate understanding of assistive devices/ modifications for ADL. 3=Patient will improve strength/tolerance for activity to enable patient to perform ADL's. OT Snf Goals Snf Goals Time Frame: May 21, 2017 Eating (FIM): 6 Eating (QC): 6 Groomin Oral Hygiene (QC): 5 Bathing(FIM): 5 Shower/Bathe Self (QC): 5 Upper Body Dressing(FIM): 5 Upper Body Dressing (QC): 5 Lower Body Dressing(FIM): 5 Lower Body Dressing (QC): 5 On/Off Footwear (QC): 5 Toileting(FIM): 5 Toileting Hygiene (QC): 5 Toilet/Commode Transfer(FIM): 5 Toilet/Commode Transfer (QC): 5 Shower Transfer(FIM): 5 Additional Goals: 2-Verbalize Understanding, 3-ImproveStrength/[place] 1=Demonstrate adherence to instructed precautions during ADL tasks. 2=Patient will verbalize/demonstrate understanding of assistive devices/ modifications for ADL. 3=Patient will improve strength/tolerance for activity to enable patient to perform ADL's. OT Education/Plan Problem List/Assessment Assessment: Decreased Safety Aware, Decreased UE Strength, Dependent Transfers , Impaired Bed Mobility, Impaired Cognition, Impaired Coordination, Impaired Funct Balance, Impaired Self-Care Skills, Visual-Perceptual Deficit Pt would benefit from skilled OT to increase her independence in basic self care skills to allow her to safely return to her home to live with her and to decrease caregiver burden. Discharge Recommendations Plan/Recommendations: Continue POC Treatment Plan/Plan of Care Treatment,Training & Education: Yes Patient would benefit from OT for education, treatment and training to promote independence in ADL's, mobility, safety and/or upper extremity function for ADL' s. Plan of Care: ADL Retraining, Functional Mobility, Group Exercise/Act as Ind ( education, exercise, funct activity, communication, socialization), UE Funct Exercise/Act, UE Neuromus Re-Ed/Coord Treatment Duration: May 21, 2017 # of days/week 5-6 Visits Per Week: 10-11 Minutes/Day (M-F): 75-90 Minutes/Day (Sat/Anders): PRN Agreement: Yes Rehab Potential: Fair Time/GCodes Start Time: 13:30 Stop Time: 14:00 Total Time Billed (hr/min): 30 Billed Treatment Time visit, 30 minutes evaluation moderate intensity STEVEN JONES OT Apr 28, 2017 14:40
--- NOTE | 2017-04-28 15:05 | PM&R Post Admission Assessment ---
Post Admission Physician Asses The preadmission screen agrees with the post admission assessment that the patient is a good candidate for inpatient rehabilitation. The patient will have a comprehensive program of inpatient rehabilitation with a goal of maximizing level of functional independence prior to discharge home with family and HHC. The patient will have PT/OT ninety minutes per day, each discipline, five days a week for 3 weeks for gait, strengthening, conditioning, balance, ADLs, and any patient/family/caregiver training as necessary. Speech therapy to do cognitive . speech and swallow assessment, and treat 5 times a week 30-45 min per day for 3 weeks. Rehabilitation nursing to assist with bowel , bladder, skin care, medication administration, pain management. Custom Marine Canvas Fabricator to assist with discharge planning, community reentry. SCD's for DVT prophylaxis. She appears to be well motivated to participate in three hours of therapy a day. She should be able to tolerate three hours of therapy a day from a medical standpoint. She should benefit from the three hours of therapy a day. She has a reasonable discharge plan, reasonable discharge rehabilitation goals and a supportive family. She has various comorbidities that need to be closely monitored with medications and treatments adjusted on a daily basis as needed. These include: Chronic a fib recuurent CVA HTN Dysphagia RA Barriers to discharge for this patient who had been independent prior to this are for her to be modified independent to supervision for ADLs and mobility skills prior to discharge home with family and HHC, so as to lessen the burden of the caregivers. Risks for this patient include: 1. Fall 2. Fracture 3. DVT 4. Pulmonary embolism 5. Recurrent stroke 6. Skin breakdown 7. Contractures 8. Poorly controlled pain 9. Urinary retention 10. UTI 11. Respiratory infection 12. Aspiration 13, Poorly controlled A FIB 14. Poorly controlled HTN 15. Flare of RA Estimated Length of Stay: 21 days Prognosis: Rehab prognosis appears good for goal of discharge home with family and HHC modified independent to supervision for ADLs and mobility skills. JESSI JONES MD Apr 28, 2017 15:05
--- NOTE | 2017-04-28 15:23 | Physical Therapy Evaluation ---
PT Evaluation-General Medical Diagnosis Admission Date Apr 28, 2017 at 13:23 Medical Diagnosis: CVA Onset Date: Apr 21, 2017 Therapy Diagnosis Therapy Diagnosis: weakness; abn gait Height/Weight Height (Feet): 5 Height (Inches): 5.00 Weight (Pounds): 141 Weight (Ounces): 9.0 Precautions Precautions/Isolations: Standard Precautions Referral Physician: Florentin Reason for Referral: Evaluation/Treatment Medical History Pertinent Medical History: Atrial Fib, GERD, HTN, Hypothroidism, Rheumatoid Arthritis Additional Medical History CVA January 2017; decreased vision due to glaucoma Current History 3 acute infarcts - L posterior frontal lobe, L basal ganglia, L anterior occipital lobe. Admitted to [facility] for acute care, then swing bed on 04-25-17. Had been home receiving PT, OT and ST Reviewed History: Yes Social History Home: Single Level Current Living Status: Spouse Prior/Core FIM Prior Level of Function Functional [place] Measure 0=Not Assessed/NA 4=Minimal Assistance 1=Total Assistance 5=Supervision or Setup 2=Maximal Assistance 6=Modified [place] 3=Moderate Assistance 7=Complete [place] Pt was home with spouse using a FWW for mobility. Unsure of her exact status as pt unable to provide the information. It appears she was receiving [facility] PT at home. PT Evaluation-Current Subjective Agrees. Acknowledges that she is familiar with our unit. Expresses that she is hungry. Pain Numeric Pain Scale: 0-No Pain Location: No Pain Reported Objective Patient Orientation: Person, Confused Problem Solving: Fair Unable to fully assess her mental status, she seems to recognize the unit from a previous recent stay. ROM/Strength ROM Lower Extremities WNL Strenght Lower Extremities Left side is grossly 4/5 throughout. Right side is grossly 4-/5 throughuout Integumentary/Posture Integumentary intact Bowel Incontinence: Yes Bladder Incontinence: Yes Posture Normal and symmetrical Neuromuscular (Tone, Coordination, Reflexes) Delayed right LE but functional Sensory Vision: impaired Hearing: Functional Hand Dominance: Right Sensation Right Lower Extremit: Intact Sensation Left Lower Extremity: Intact Transfers Functional [place] Measure 0=Not Assessed/NA 4=Minimal Assistance 1=Total Assistance 5=Supervision or Setup 2=Maximal Assistance 6=Modified [place] 3=Moderate Assistance 7=Complete IndependenceIRFPAI Quality Coding Scale 6 Independent with activity with or without an assistive device 5 Patient requires set up or clean up by helper. Patient completes activity by themselves 4 Supervision or touching assist (CGA). [place] provide cues , steadying assist 3 The helper provides less than half the effort to complete the activity 2 The helper provides more than half the effort to complete the activity 1 Dependent. The helper does all the effort to complete an activity 7 Patient refused to complete or attempt activity 9 The patient did not perform the activity before the current illness or injury 88 Not attempted due to Medical conditions or safety concerns Transfers (B, C, W/C) (FIM): 4 Rollin Roll Left to Right (QC): 4 Supine to/from Sit: 4 (CGA and tactile cues to sequence. ) Sit to/from Stand: 4 (CGA for safety.) Sit to Lying (QC): 4 Lying to Sitting/Side of Bed(Q: 4 Sit to Stand (QC): 4 (CGA and skilleed cues for hand placement and sequencing) Chair/Gfm-xt-Ctdyq Xfer(QC): 4 Car Transfer (QC): 88 In general, CGA for sequencing and safety with functional transfers. Pt sequenced sit to from stand transfer correctly 50% of the time. Gait Does the Patient Walk?: Yes Mode of Locomotion: Walk Anticipated Mode of Locomotion: Walk Gait (FIM): 2 Distance (FIM): 9=220-39 ft Walk 10 feet (QC): 4 (CGA for safety) Walk 50 ft with 2 Turns(QC): 4 (CGA; in room with turning and moving around the bed) Walk 150 ft (QC): 88 (unable to walk 150 ft) Walking 10ft/uneven surface-QC: 88 (unsafe to attempt) Gait Persons Needed: 4 Gait Assistive Device: FWW Comments/Gait Description Decreased foot clearance bilaterally, decreased step through with the right, head down and slow gait pattern; Pt tends to take short steps. Pt requires cues 75% of the time for gait pattern. Wheelchair Training Does the Pt Use a Wheelchair?: No Stairs Stairs (FIM): 1 #of Steps: 1 1 Step (curb) (QC): 4 (CGA for safety) 4 Steps (QC): 88 Assistive Device: Walker 12 Steps (QC): 88 Balance Sitting Static: Good Sitting Dynamic: Fair Standing Static: Fair Picking up an Object (QC): 88 (unsafe to attempt) Treatment GAit training paired with functional sit to from stand training with skilled cues for hand placement and sequencing. skilled cues for gait pattern and safety. Pt stood at sink to wash hands with CGA. Pt up in chair with chair alarm activited after treatment. Assessment/Needs Presents post acute CVA with noted slight right LE weakness, assist with functional transfers and gait. She also demonstrates expressive aphasia. Pt will benefit from skilled PT intervention to work on functional strenght and mobility with goal to return home with her spouse. She has altered gait and safety awareness. Rehab Potential: Guarded (prior CVA) PT Short Term Goals Short Term Goals Time Frame: May 12, 2017 Transfers (B,C,W/C) (FIM): 5 Gait (FIM): 5 PT News Commentator Goals News Commentator Goals PT Long-Term Goals Time Frame: May 26, 2017 Transfers (B,C,W/C) (FIM): 6 Sit to Lying (QC): 6 Lying-Sitting on Side/Bed(QC): 6 Sit to Stand (QC): 6 Roll Left to Right (QC): 6 Chair/Hgk-jk-Bbkcl Xfer(QC): 6 Car Transfer (QC): 5 Does the Patient Walk: Yes Gait (FIM): 6 Gait distance (FIM): 3=150 ft Walk 10 feet (QC): 6 Walk 10ft-Uneven Surface(QC): 6 Walk 50ft with 2 Turns (QC): 6 Walk 150 ft (QC): 6 Gait Level of Assist: 6 Gait Assistive Device: FWW Does the Pt use WC or Scooter?: No Stairs (FIM): 5 # of Steps: 8 1 Step (curb) (QC): 5 4 Steps (QC): 5 12 Steps (QC): 88 Picking up an Object (QC): 5 all goals set the the plan to return home with her spouse at a mod indep level. PT Plan Problem List Problem List: Activity Tolerance, Functional Strength, Safety, Balance, Gait, Transfer, Bed Mobility Treatment/Plan Treatment Plan: Continue Plan of Care Treatment Plan: Bed Mobility, Education, Functional Activity [place], Functional Strength, Group Therapy, Gait, Safety, Therapeutic Exercise, Transfers Treatment Duration: May 26, 2017 Visits Per Week: 10-15 Pt/Family Agrees w/Plan: Yes Safety Risks/Education Patient Education: Transfer Techniques, Safety Issues Teaching Recipient: Patient Teaching Methods: Demonstration, Discussion Response to Teaching: Reinforcement Needed Discharge Recommendations Therapy D/C Recommendations: Physical Therapy Home Care Time/GCodes Time In: 1430 Time Out: 1520 Total Billed Treatment Time: 50 Total Billed Treatment visit EVM 20 FA 15 GT 15 HUSSEIN JAMIL PT Apr 28, 2017 15:23
[2017-04-28] MEDS ORDERED: prednisoLONE 1% OPTH (PRED FORTE) 5 ML BTL OU SCH (17:00)
[2017-04-28 17:54] VITALS: BP 123/75
[2017-04-28] MEDS: prednisoLONE 1% OPTH (PRED FORTE) 5 ML BTL OD SCH ×2 (18:43→20:55)
--- NOTE | 2017-04-28 20:38 | HISTORY AND PHYSICAL ---
DATE OF SERVICE: CHIEF COMPLAINT: Difficulty with speech, right-sided weakness. HISTORY OF PRESENT ILLNESS: The patient is an 81-year-old female admitted to Dr. Enciso's service at [facility] because of worsening right-sided weakness and difficulty with speech. Imaging studies revealed extension of prior left CVA with new ones as well 3 Acute infarcts involving the left posterior frontal lobe and left basal ganglia as well as the left anterior occipital lobe were noted . The patient has been a patient on inpatient rehabilitation unit at [facility] this past January and did well.She went on to local SNU upon discharge from IRU in February and then to home with [facility] and Her family assisting as needed. Prior Level of Function- Prior to these strokes, she had been independent. Since her first stroke she had been modified independence for mobility, but requireed some assistance for ADLs and medication administration. She has a supportive son and rpqfccas-ru-tjo that live nearby. Current level of function: She requires assistance for her ADLs and mobility skills. She has impaired speech and is on mechanical soft diet.She is min assist for transfers and gait with .She is Min assist for ADLS other then Eating which is set-up.She is reported to be incontinent PAST MEDICAL HISTORY: Prior stroke, chronic atrial fibrillation on Eliquis-currently on hold, hypothyroidism on replacement, GERD, rheumatoid arthritis, takes methotrexate q. weekly, hypertension, glaucoma in the right eye on several eye drops.Blindness rt eye PAST SURGICAL HISTORY: She has had foot surgeries for her deformities secondary to her rheumatoid arthritis with Dr. Cruz in [place]. ALLERGIES: IODINE, LIDOCAINE. FAMILY HISTORY: Noncontributory. 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 Lives with spouse in [facility] PCP DR Enciso REVIEW OF SYSTEMS: A 10-point review of systems is significant for arthritic pain and deformity in hands and feet, right-sided weakness. Difficulty with speech. Irregular heartbeat.Blindness rt eye MEDICATIONS: Digoxin 0.125 mg p.o. daily, lisinopril 10 mg p.o. daily, atenolol 12.5 mg p.o. daily, Cyclogyl 1 drop right eye daily, Synthroid 75 mcg p.o. daily, folic 1 mg p.o. b.i.d., gabapentin 300 mg p.o. b.i.d., simvastatin 40 mg p.o. at bedtime, Eliquis 5 mg p.o. b.i.d., Xalatan eye drops one drop to right eye at bedtime, Alphagan eye drops one drop both eyes t.i.d., Timoptic one drop to both eyes b.i.d., Pred Forte one drop to right eye q.i.d., methotrexate 25 mg p.o. q. week. PHYSICAL EXAMINATION: GENERAL: Significant for a pleasant female appearing her stated age. She is alert and oriented, but with significant speech impairment, communication impairment. VITAL SIGNS: She is afebrile. Pulse is 92 and regular. Respirations 16. Blood pressure 129/71, O2 sat 95% on room air. HEENT: Vision-blindness rt eye Hearing appear grossly intact. Speech is impaired. She has word finding difficulties. No oral lesion is noted. NECK: Supple without mass. HEART: Regular rhythm. LUNGS: Clear. ABDOMEN: Soft and nontender. Bowel sounds are present. EXTREMITIES: She has deformities consistent with RA in both hands and feet. No lower edema. No calf tenderness. MUSCULOSKELETAL: The patient has functional and passive range of motion in her noninfected arthritic joints at the elbows, shoulders, knees and hips. NEUROLOGIC: She has an expressive aphasia associated with right hemiparesis with gait imbalance. Sensation is grossly intact to touch. Cognition is difficult to fully assess due to communication deficit, but she is able to follow simple commands at times.Blindness rt eye Strength 4/5 Both upper limbs and Left lower limb 4-/5 RT lower limb with slight lag as well as dyscoordination Rt upper limb IMPRESSION: 1. 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 2. Hypertension controlled with medication. 3. Chronic atrial fibrillation controlled and with Eliquis on hold. 4. Rheumatoid arthritis with deformities in hands and feet on methotrexate weekly. 5. Glaucoma on eye drops. 6. Hypothyroidism on replacement. 7. Blindness rt eye 8. Mild hypokalemia as per lab 04/29 PLAN: The patient will have a comprehensive program of inpatient stroke rehabilitation with goal of maximizing level of functional independence prior to discharge home with family and home health care. The patient will have PT/OT 90 minutes per day each discipline, 5 days a week for three weeks when not being seen by speech therapy for gait conditioning, strengthening, neuromuscular reeducation is indicated, transfer training, ADLs, any patient family caregiver training necessary and adaptive equipment training necessary, speech therapy to do ongoing cognitive speech and swallow training 5 days a week 45 minutes per day for 2 to 3 weeks. Rehabilitation nurse to assist with bowel, bladder, skin care, medication administration, pain management. donor services team leader for discharge planning, community re-entry, consult Dr. Otto from hospitalist service for medical assistance. She has seen the patient during the patient's prior stay here in February for stroke rehab. Routine admission labs, therapy for cardiac and fall precautions. The patient is a DNI.Hold Eliquis for now.replace K ESTIMATED LENGTH OF STAY: Three weeks. PROGNOSIS: Rehab prognosis appears good for the goal of discharging home with family and home health care, hopefully supervision to modified independence for ADLs and mobility skills with improved communication skills. DIET: Mechanical soft. CODE STATUS: DNI. Job ID: [id number] DocumentID: [id number] Dictated Date: 04/28/2017 16:09:06 Curing Room Supervisor Date: 04/28/2017 19:41:18 Dictated By: JESSI JONES MD [facility]
[2017-04-28] MEDS: BRIMONIDINE 0.2% (ALPHAGAN) OPHTH SOLN 5 ML BTL OU SCH (20:55)
[2017-04-28] MEDS: TIMOLOL MALEATE 0.5% 5 ML (TIMOPTIC) BTL OU SCH (20:55)
[2017-04-28] MEDS: GABAPENTIN 300 MG (NEURONTIN) CAP PO SCH (20:58)
[2017-04-28] MEDS: SIMvastatin 40 MG (ZOCOR) TAB PO SCH (20:58)
[2017-04-28] MEDS: FOLIC ACID 1 MG TAB PO SCH (20:58)
[2017-04-28] MEDS: LATANOPROST 0.005% (XALATAN) OPHTH SOLN 2.5 ML OU SCH (20:59)
[2017-04-29 05:15] VITALS: BP 96/64
[2017-04-29 05:55] LABS: BASOPHILS % (AUTO) 1 % (0-10); EOSINOPHILS # (AUTO) 0.2 10^3/uL (0.0-0.3); EOSINOPHILS % (AUTO) 4 % (0-10); LYMPHOCYTES # (AUTO) 1.8 X 10^3 (1.0-4.0); LYMPHOCYTES % (AUTO) 36 % (12-44); MEAN CORPUSCULAR HEMOGLOBIN 31 PG (25-34); MEAN CORPUSCULAR HGB CONC 33 G/DL (32-36); MEAN CORPUSCULAR VOLUME 96 FL (80-99); MEAN PLATELET VOLUME 10.1 FL (7.4-10.4); MONOCYTES # (AUTO) 0.4 X 10^3 (0.0-1.0); MONOCYTES % (AUTO) 9 % (0-12); NEUTROPHILS # (AUTO) 2.4 X 10^3 (1.8-7.8); NEUTROPHILS % (AUTO) 50 % (42-75); PLATELET COUNT 195 10^3/uL (130-400); RED BLOOD COUNT 4.03 10^6/uL (4.35-5.85); WHITE BLOOD COUNT 4.9 10^3/uL (4.3-11.0)
[2017-04-29] MEDS: LEVOTHYROXINE 75 MCG (LEVOTHROID) TABLET PO SCH (06:05)
[2017-04-29 06:15] LABS: ALANINE AMINOTRANSFERASE 13 U/L (0-55); ALBUMIN 3.4 GM/DL (3.2-4.5); ANION GAP 12 MMOL/L (5-14); ASPARTATE AMINO TRANSFERASE 15 U/L (5-34); BILIRUBIN,TOTAL 0.5 MG/DL (0.1-1.0); BLOOD UREA NITROGEN 10 MG/DL (7-18); BUN/CREATININE RATIO 16 (0-20); CARBON DIOXIDE 26 MMOL/L (21-32); CHLORIDE 105 MMOL/L (98-107); CREATININE SERUM 0.61 MG/DL (0.60-1.30); GFR ESTIMATED > 60; GLUCOSE 85 MG/DL (70-105); HEMOLYSIS 8 (0-29); ICTERUS 0.7 (0-1.9); LIPEMIA 2 (0-49); POTASSIUM 3.5 MMOL/L (3.6-5.0); SODIUM 143 MMOL/L (135-145); TOTAL PROTEIN 5.4 GM/DL (6.4-8.2)
--- NOTE | 2017-04-29 08:39 | PM & R (SOAP) Progress Note ---
Subjective Time Seen by Provider: 07:55 Subjective/Events-last exam Patient was seen in her room this AM.Patient min assist for transfers. Patient CGA for gait with FWW.Current labs reviewed..Serum K low -will order replacement -see orders Patiewnt adjusting well to unit,Discussed case with RN last evening She reports that Eliquis had been on hold -Will f/u re resuming this Uncertain why on hold. Review of Systems Neurological: Change in speech, Weakness Objective Exam Last Set of Vital Signs Vital Signs Date Time Temp Pulse Resp B/P (MAP) Pulse Ox O2 Delivery O2 Flow Rate FiO2 04/29/17 05:15 99.0 63 16 96/64 95 Room Air Capillary Refill : I&O Bad tableGeneral: Alert, Cooperative, No Acute Distress HEENT: Atraumatic, PERRLA, EOMI, Mucous Memb Moist/[place]ck: Supple, No JVD Lungs: Clear to Auscultation Heart: Other (irregular) Abdomen: Normal Bowel Sounds, Soft Extremities: No Edema Neuro: Other (RT HP and aphasia) Results Lab Laboratory Tests 04/29/17 05:02: White Blood Count 4.9, Red Blood Count 4.03L, Hemoglobin 12.6, Hematocrit 39, Mean Corpuscular Volume 96, Mean Corpuscular Hemoglobin 31, Mean Corpuscular Hemoglobin Concent 33, Red Cell Distribution Width 15.0H, Platelet Count 195, Mean Platelet Volume 10.1, Neutrophils (%) (Auto) 50, Lymphocytes (%) (Auto) 36 , Monocytes (%) (Auto) 9, Eosinophils (%) (Auto) 4, Basophils (%) (Auto) 1, Neutrophils # (Auto) 2.4, Lymphocytes # (Auto) 1.8, Monocytes # (Auto) 0.4, Eosinophils # (Auto) 0.2, Basophils # (Auto) 0.0, Sodium Level 143, Potassium Level 3.5L, Chloride Level 105, Carbon Dioxide Level 26, Anion Gap 12, Blood Urea Nitrogen 10, Creatinine 0.61, Estimat Glomerular Filtration Rate > 60, BUN/ Creatinine Ratio 16, Glucose Level 85, Calcium Level 9.0, Total Bilirubin 0.5, Aspartate Amino Transf (AST/SGOT) 15, Alanine Aminotransferase (ALT/SGPT) 13, Alkaline Phosphatase 48, Total Protein 5.4L, Albumin 3.4 Assessment/Plan Assessment 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 Chronic a FIB controlled with meds OAC with Eliquis currently on hold will f/u re resuming Hypokalemia-replace HTN controlled RA on methotrexate weekly with post surgical chages to feet and Deformities of both hands Glaucoma on eyedrops Plan Continue PT/OT ST to assess Replace K F/U with Hospitalist service re resuming Eliquis See orders. JESSI JONES MD Apr 29, 2017 08:39
[2017-04-29] MEDS: prednisoLONE 1% OPTH (PRED FORTE) 5 ML BTL OD SCH ×4 (08:41→20:16)
[2017-04-29] MEDS: TIMOLOL MALEATE 0.5% 5 ML (TIMOPTIC) BTL OU SCH ×2 (08:41→20:16)
[2017-04-29] MEDS: BRIMONIDINE 0.2% (ALPHAGAN) OPHTH SOLN 5 ML BTL OU SCH ×3 (08:41→20:16)
[2017-04-29] MEDS: CYCLOPENTOLATE 1% (CYCLOGYL) 2 ML DROPS OP SCH (08:41)
[2017-04-29] MEDS: GABAPENTIN 300 MG (NEURONTIN) CAP PO SCH ×2 (08:44→20:15)
[2017-04-29] MEDS: lisINopril 10 MG (PRINIVIL) TAB PO SCH (08:44)
[2017-04-29] MEDS: DIGOXIN 0.125 MG (LANOXIN) TAB PO SCH (08:44)
[2017-04-29] MEDS: FOLIC ACID 1 MG TAB PO SCH ×2 (08:44→20:15)
[2017-04-29] MEDS: ATENOLOL 25 MG (TENORMIN) TAB PO SCH (08:44)
[2017-04-29] MEDS ORDERED: KCL 20 MEQ TAB (K-DUR) PO NR (08:45)
[2017-04-29] MEDS ORDERED: TIMOLOL MALEATE 0.5% 5 ML (TIMOPTIC) BTL OU SCH (09:00)
--- NOTE | 2017-04-29 09:52 | Physical Therapy Daily Note ---
PT Daily Note-Current Subjective Patient in recliner pre tx, agrees to PT, no complaints of pain. Appearance Patient in recliner post tx with nurse call, phone, tray, chair alarm on. Mental Status Patient Orientation: Unable to Assess Transfers Functional [place] Measure 0=Not Assessed/NA 4=Minimal Assistance 1=Total Assistance 5=Supervision or Setup 2=Maximal Assistance 6=Modified [place] 3=Moderate Assistance 7=Complete IndependenceIRFPAI Quality Coding Scale 6 Independent with activity with or without an assistive device 5 Patient requires set up or clean up by helper. Patient completes activity by themselves 4 Supervision or touching assist (CGA). [place] provide cues , steadying assist 3 The helper provides less than half the effort to complete the activity 2 The helper provides more than half the effort to complete the activity 1 Dependent. The helper does all the effort to complete an activity 7 Patient refused to complete or attempt activity 9 The patient did not perform the activity before the current illness or injury 88 Not attempted due to Medical conditions or safety concerns Transfers (B, C, W/C) (FIM): 4 Sit to/from Stand: 4 min assist sit to stand, cues for hand placement and safety, will often pull up from walker Gait Training Gait (FIM): 2 Distance: 75'x2, 50', 100' Gait Level of Assist: 4 Gait Persons Needed: 1 Gait Assistive Device: FWW Slow ambulation, shuffling step-to gait, lists a little to the right side, fatigues very quickly. Exercises NuStep Minutes: 15 (LE strengthening to improve functional mobility and endurance) NuStep Workload: 5 Treatments transfers, ambulation, functional strengthening Assessment Current Status: Fair Progress Patient fatigues quickly, needs many rest breaks PT Short Term Goals Short Term Goals Time Frame: May 12, 2017 Transfers (B,C,W/C) (FIM): 5 Gait (FIM): 5 PT Mcfp Goals Mcfp Goals PT Gandy Dancer Goals Time Frame: May 26, 2017 Transfers (B,C,W/C) (FIM): 6 Sit to Lying (QC): 6 Lying-Sitting on Side/Bed(QC): 6 Sit to Stand (QC): 6 Rollin Roll Left to Right (QC): 6 Chair/Cwg-oi-Nxbvy Xfer(QC): 6 Car Transfer (QC): 5 Does the Patient Walk: Yes Gait (FIM): 6 Gait distance (FIM): 3=150 ft Walk 10 feet (QC): 6 Walk 10ft-Uneven Surface(QC): 6 Walk 50ft with 2 Turns (QC): 6 Walk 150 ft (QC): 6 Gait Level of Assist: 6 Gait Assistive Device: FWW Does the Pt use WC or Scooter?: No Stairs (FIM): 5 # of Steps: 8 1 Step (curb) (QC): 5 4 Steps (QC): 5 12 Steps (QC): 88 Picking up an Object (QC): 5 PT Plan Problem List Problem List: Activity Tolerance, Functional Strength, Safety, Balance, Gait, Transfer, Bed Mobility Treatment/Plan Treatment Plan: Continue Plan of Care Treatment Plan: Bed Mobility, Education, Functional Activity [place], Functional Strength, Group Therapy, Gait, Safety, Therapeutic Exercise, Transfers Treatment Duration: May 26, 2017 Visits Per Week: 10-15 Safety Risks/Education Patient Education: Gait Training, Transfer Techniques, Correct Positioning, Safety Issues Teaching Recipient: Patient Teaching Methods: Demonstration, Discussion Response to Teaching: Reinforcement Needed Time/GCodes Time In: 900 Time Out: 950 Total Billed Treatment Time: 50 Total Billed Treatment 1 visit EX 15' GT 35' RETA PENA PT Apr 29, 2017 09:52
--- NOTE | 2017-04-29 10:42 | Consultation-Hospitalist ---
CECILLE BRIGGS DO 04/29/17 1042: HPI History of Present Illness: HPI/Chief Complaint CC: Stroke HPI: This is a [address] Enciso in [place] who presented with the above. Dr. Enciso Review: Pt came in last week with three new infarcts so we consulted neurology, they recommended holding Eliquis for about two weeks. Eliquis was put on hold day 7. Pharmacy Review: We are still figuring out why the Eliquis is on hold from Dr. Enciso. We are also trying to figure out if she was on Eliquis at [facility]. There was an order for it, but no scripts written. Pt was DC April 02 from [place] on Eliquis Patient Interview: Pt is able to make sounds, but cannot form words. She seems to understand what is said to her. Plan: Monitor pt Scribed by Eli Carmona under the direct supervision of Dr. Briggs. Source: patient, RN/MD Exam Limitations: clinical condition Date Seen 04/29/17 Attending Physician David Lerma MD PCP [place] Enciso DO Referring Physician Date of Admission Apr 28, 2017 at 13:23 Home Medications & Allergies Home Medications Reviewed patient Home Medication Reconciliation Form Allergies Allergies Coded Allergies iodine (Unverified Adverse Reaction, Unknown, 10/12/15) lidocaine (Unverified Adverse Reaction, Unknown, 10/12/15) Past Yykctqd-Lmmwbq-Cjnnof Hx Patient Social History Marrital Status: Employed/Student: retired Alcohol Use: Denies Use Smoking Status: Never a Smoker Physical Abuse Screen: No (pt able to answer yes/no questions) Sexual Abuse: No (pt able to answer yes/no questions) Recent Foreign Travel: No Contact w/other who traveled: No Recent Hopitalizations: No Recent Infectious Disease Expo: No Immunizations Up To Date Tetanus Booster (TDap): Less than 5yrs Date of Pneumonia Vaccine: Aug 20, 2014 Date of Influenza Vaccine: Aug 17, 2016 Seasonal Allergies Seasonal Allergies: Yes Surgeries HX Surgeries: Yes (foot surgery d/t RA) Surgeries: Appendectomy, Gallbladder, Hysterectomy Respiratory Hx Respiratory Disorders: Yes (02 at night) Respiratory Disorders: COPD Cardiovascular Hx Cardiovascular Disorders: Yes Cardiac Disorders: Atrial Fibrillation, Hypertension Neurological Hx Neurological Disorders: Yes Neurological Disorders: Stroke, TIA Genitourinary Hx Genitourinary Disorders: No Gastrointestinal Hx Gastrointestinal Disorders: Yes Gastrointestinal Disorders: Gastroesophageal Reflux Musculoskeletal Hx Musculoskeletal Disorders: Yes Musculoskeletal Disorders: Rheumatoid Arthritis Endocrine Hx Endocrine Disorders: Yes Endocrine Disorders: Hypothyroidsim HEENT HX ENT Disorders: Yes HEENT Disorders: Glaucoma Loss of Vision: Right Hearing Impairment: Denies Cancer Cancer: Ovarian, Uterine Family Medical History Family Hx: Alcoholism 19 FATHER Asthma 19 MOTHER G8 SISTER Cardiovascular disease G8 SISTER FH: atrial fibrillation G8 SISTER FH: cancer G8 BROTHER G8 SISTER FH: lymphoma G8 BROTHER G8 SISTER Review of Systems Date Seen by Provider: Apr 29, 2017 Time Seen by Provider: 11:15 Constitutional: see HPI, weakness EENTM: no symptoms reported Respiratory: no symptoms reported Cardiovascular: no symptoms reported Gastrointestinal: no symptoms reported Genitourinary: no symptoms reported Musculoskeletal: no symptoms reported Skin: no symptoms reported Psychiatric/Neurological: Depressed, Numbness, Tingling, Other (difficulty talking) All Other Systems Reviewed Negative Unless Noted: Yes Physical Exam Physical Exam Vital Signs Vital Sign - Last 12Hours 04/28/17 13:26 Temp 98.6 Pulse 92 Resp 16 B/P (MAP) 129/71 Pulse Ox 95 O2 Delivery Room Air Capillary Refill : Less Than 3 Seconds General Appearance: No Apparent Distress, WD/WN Eyes: Bilateral Eye Normal Inspection, Bilateral Eye PERRL HEENT: PERRL/EOMI, Normal ENT Inspection, Pharynx Normal Neck: Full Range of Motion, Normal Inspection, Non Tender, Supple, Carotid Bruit Respiratory: Chest Non Tender, Lungs Clear, Normal Breath Sounds, No Accessory Muscle Use, No Respiratory Distress Cardiovascular: Regular Rate, Rhythm, No Edema, No Gallop, No JVD, No Murmur, Normal Peripheral Pulses Gastrointestinal: Normal Bowel Sounds, No Organomegaly, No Pulsatile Mass, Non Tender, Soft Back: Normal Inspection, No CVA Tenderness, No Vertebral Tenderness Extremity: Normal Capillary Refill, Normal Inspection, Normal Range of Motion, Non Tender, No Calf Tenderness, No Pedal Edema Neurologic/Psychiatric: Alert, Normal Mood/Affect, Other (partially aphasic) Skin: Normal Color, Warm/Dry Lymphatic: No Adenopathy Results Results/Procedures Lab Laboratory Tests 04/29/17 05:02 Assessment/Plan Admission Diagnosis Assessment: Partial aphasia with dysarthria Recurrent stroke one large enough to place patient had a bleed risk so holding anticoagulation for 2 weeks beginning 04/21/17 Hypertension Atrial fibrillation Hyperlipidemia Rheumatoid arthritis Hypothyroidism Assessment and Plan Plan: maintain home meds Monitor blood pressure Speech therapy Hold anticoagulation until 05/06/17. Clinical Quality Measures DVT/VTE Risk/Contraindication: Risk Factor Score Per Nursin RFS Level Per Nursing on Admit: 4+=Very High ROSALINA DELONG MEDICAL STUDENT 04/29/17 1058: HPI History of Present Illness: HPI/Chief Complaint CC: Medical management following CVA HPI: Patient is an 81yo WF that presents with confusion and dysarthria. Patient could not communicate adequately and history was difficult to obtain. Patient was admitted yesterday and does not remember the events that followed admission. Patient remembers eating, drinking and going to the bathroom but nothing else. She has not walked since arriving. Patient can only say no and yes , cannot form sentences. PMH: Unobtainable FH: Unobtainable SH: Unobtainable Orientated to Person, could not state time or place Source: patient, RN/MD Exam Limitations: clinical condition, physical impairment (Severe dysarthria) Home Medications & Allergies Allergies Allergies Coded Allergies iodine (Unverified Adverse Reaction, Unknown, 10/12/15) lidocaine (Unverified Adverse Reaction, Unknown, 10/12/15) Past Jdflcwz-Pfioxm-Lngjzj Hx Family Medical History Family Hx: Alcoholism 19 FATHER Asthma 19 MOTHER G8 SISTER Cardiovascular disease G8 SISTER FH: atrial fibrillation G8 SISTER FH: cancer G8 BROTHER G8 SISTER FH: lymphoma G8 BROTHER G8 SISTER Physical Exam Physical Exam Vital Signs Vital Sign - Last 12Hours 04/28/17 13:26 Temp 98.6 Pulse 92 Resp 16 B/P (MAP) 129/71 Pulse Ox 95 O2 Delivery Room Air Results Results/Procedures Lab Laboratory Tests 04/29/17 05:02 CECILLE BRIGGS DO Apr 29, 2017 10:42 ROSALINA DELONG MEDICAL STUDENT Apr 29, 2017 10:58
[2017-04-29] MEDS ORDERED: APIX5TAB PO (10:57)
[2017-04-29] MEDS ORDERED: LISI10TA2 PO (10:57)
[2017-04-29] MEDS ORDERED: TIMO5DRO5 OU (10:57)
--- NOTE | 2017-04-29 11:15 | ST Cognitive Linguistic Eval ---
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 David Lerma Reason for Referral: Evaluation/Treatment Speech, Language, Cognitive Evaluation Medical History Pertinent Medical History: Atrial Fib, CVA, GERD, HTN, Hypothroidism, Rheumatoid Arthritis Reviewed History: Yes Social History Current Living Status: Spouse Speech PLF-Current Status Prior Level of Function The patient was recently treated at [facility] and discharged to a senior living. Upon discharge, the patient continued to demonstrate moderate to severe global aphasia, demonstrating great difficulty with expression and comprehension. Subjective The patient was recently admitted to [facility] following an extension of her previous CVA. The patient greeted the clinician with a smile and agreed to participation in the speech, language, and cognitive evaluation via head nod. Language Eval: Auditory Comprehends Simple Yes/No Ques: Mild (At the onset of the session, the patient demonstrated increased accuracy with yes and no questions (simple). As the session progressed, the patient's accuracy reduced and repetition was increased. ) Indent/Objects Multiple [place]: Severe (The patient was unable to identify an object by name or function in a field of two.) Follows 1-Step Commands: Severe (The patient intermittently, rarely followed one step commands presented orally or in print.) Follows General Conversations: Severe Language Eval: Verbal Language Completes Spontaneous Greeting: Mild Produces Auto, Serial Info: Moderate (The patient is able to state first name, however, unable to state date of or age.) Imitates Simple Words/Phrases: Severe (The patient was unable to repeat single words.) Word Finding: Severe Requests Basic Needs: Severe States Basic Personal Info: Severe Language Evaluation: Reading The patient was unable to identify single words in a field of two. Cognitive Patient Orientation Via yes and no questions, the patient was able to identify the month and year. The patient was unable to identify the day of week or date. Objective Cognitive Domain Problem Solving: Moderate Due to the patient's moderate to severe expressive and receptive deficits, full/ complete cognitive evaluation was not able to be completed. Objective Impression The patient demonstrated moderate to severe global aphasia with large deficits noted in expression and comprehension. To note, the patient demonstrates skills similar to her previous stay. Communication/Social Cognition Comprehension: 1 Expression: 1 Social Interaction: 1 Problem Solvin Memory: 0 Speech Patient Assess Expression of Ideas/Wants: Rarely/Never (1) Understanding [place] Content: Rarely/Never Understand (1) Brief Interview-Mental Status: No(pt is rarely/never understood) Add-Enter 99 if pt cannot comp: 99 Speech Short Term Goals Short Term Goals Short Term Goals 1. The patient will identify items included in ADL activities with 80% accuracy in a field of two. 2. The patient will demonstrate accurate use of ADL items with 80% accuracy and mild clinician cueing. 3. The patient will follow one-step commands with 80% accuracy. Time Frame-STG: Two Weeks Speech Quality Assurance Auditor Goals Prison Goals The patient will demonstrate improvement with expressive and receptive language to increase functional communication in the least restrictive setting. Time Frame: Three Weeks Comprehension: 2 Expression: 2 Social Interaction: 3 Problem Solvin Memory: 3 Speech-Plan Treatment Plan Speech Therapy Treatment Plan: Continue Plan of Care Continue skilled speech pathology to target expressive and receptive functional language. Treatment Duration: Apr 29, 2017 # of days/week Five. Visits Per Week: Five. Minutes/Day (M-F): 30 Rehab Potential: Guarded (prior CVA) Safety Risks/Education Teaching Recipient: Patient Teaching Methods: Discussion Response to Teaching: Unable to Comprehend Education Topics Provided: Results, Recommendations, Plan of Care Time Speech Therapy Time In: 10:00 Speech Therapy Time Out: 10:30 Total Billed Time: 30 Billed Treatment Time Saroj MARTA SALMONMAT[facility]IE[address] ST Apr 29, 2017 11:15
--- NOTE | 2017-04-29 13:02 | Occupational Ther Daily Note ---
OT Current Status-Daily Note Subjective Pt seen in room, up in recliner, agreeable to OT. No pain mentioned. Appearance Alert, cooperative Mental Status/Objective Functional [place] Measure 0=Not Assessed/NA 4=Minimal Assistance 1=Total Assistance 5=Supervision or Setup 2=Maximal Assistance 6=Modified [place] 3=Moderate Assistance 7=Complete [place] ADL-Treatment Pt responds best to less verbal information, more visual or demonstration and with increased time to respond. Functional [place] Measure 0=Not Assessed/NA 4=Minimal Assistance 1=Total Assistance 5=Supervision or Setup 2=Maximal Assistance 6=Modified [place] 3=Moderate Assistance 7=Complete IndependenceIRFPAI Quality Coding Scale 6 Independent with activity with or without an assistive device 5 Patient requires set up or clean up by helper. Patient completes activity by themselves 4 Supervision or touching assist (CGA). [place] provide cues , steadying assist 3 The helper provides less than half the effort to complete the activity 2 The helper provides more than half the effort to complete the activity 1 Dependent. The helper does all the effort to complete an activity 7 Patient refused to complete or attempt activity 9 The patient did not perform the activity before the current illness or injury 88 Not attempted due to Medical conditions or safety concerns Eating (FIM): 4 (Setup, including opening milk and ice cream. Min assist to check for pocketing, cue for drinks, to use silverware, to find things on R side. Pt ate carrot slices and chicken pieces with her fingers on L hand and then tried to eat her ice cream with index fiinger on R. Coughed a couple of times after drinking coffee.) Eating (QC): 3 Grooming (FIM): 4 (Min assist. Pt squirted toothpaste in her mouth instead of putting it on her toothbrush. Perseverated with brushing her teeth. Also brushed sides of her cheeks with her toothbrush. Skilled cues to find items on R visual field. Cues for sequencing to rinse mouth) Oral Hygiene (QC): 3 Bathing (FIM): 4 (Min assist, supervision, skilled cues to wash and dry all parts. Cues to put soap on washcloth, to wash jsoe rafael areas. Shower bench, grab bars, hand held shower. Had difficulty controlling direction of sprayer. CGA when standing) Shower/Bathe Self (QC): 3 Upper Body (FIM): 5 (setup, able to unhook bra, take shirt off and don shirt) Upper Body Dressing (QC): 5 Lower Body Dressing (FIM): 4 (Able to get Depends off and clean ones on and stand with SBA to pull them up. Able to doff slipper socks but not TEDs. Able to don slipper sock on the left but not the right.) Lower Body Dressing (QC): 3 On/Off Footwear (QC): 4 (Able to take both slipper socks off but only put one back on) Toileting (FIM): 5 (Able to manage clothing with SBA. Setup to pull toilet paper but she was able to wipe. Tall toilet, grab bar) Toileting Hygiene (QC): 4 Toilet/Commode Transfer (FIM): 4 (Assistance for hand placement on grab bar. Min assist sit to stand off tall toilet. tends to pull up from walker) Toilet Transfer (QC): 3 Shower Transfer(FIM): 4 (CGA, to shower bench, with grab bar, FWW) All ADLs took longer than usual, due to communication difficulties and assistance needed. Pt left up in recliner, chair alarm on, all needs met. Education OT Patient Education: Modified ADL techniques, Purpose of tx/functional activities, Safety issues, Transfer techniques Teaching Recipient: Patient Teaching Methods: Demonstration, Discussion Response to Teaching: Verbalize Understanding, Return Demonstration, Reinforcement Needed OT Short Term Goals Short Term Goals Time Frame: May 07, 2017 Eating(FIM): 5 Grooming(FIM): 4 Bathing(FIM): 4 Upper Body Dressing(FIM): 4 Lower Body Dressing(FIM): 4 Toileting(FIM): 4 Transfers (B,C,W/C) (FIM): 5 Toilet/Commode Transfer(FIM): 4 Additional Short Term Goals: 2-Verbalize Understanding, 3-ImproveStrength/[place] 1=Demonstrate adherence to instructed precautions during ADL tasks. 2=Patient will verbalize/demonstrate understanding of assistive devices/ modifications for ADL. 3=Patient will improve strength/tolerance for activity to enable patient to perform ADL's. OT Well Logging Mud Analysis Captain Goals Longterm Goals Time Frame: May 21, 2017 Eating (FIM): 6 Eating (QC): 6 Groomin Oral Hygiene (QC): 5 Bathing(FIM): 5 Shower/Bathe Self (QC): 5 Upper Body Dressing(FIM): 5 Upper Body Dressing (QC): 5 Lower Body Dressing(FIM): 5 Lower Body Dressing (QC): 5 On/Off Footwear (QC): 5 Toileting(FIM): 5 Toileting Hygiene (QC): 5 Toilet/Commode Transfer(FIM): 5 Toilet/Commode Transfer (QC): 5 Shower Transfer(FIM): 5 Comprehension(FIM): 2 Expression (FIM): 2 Social Interaction(FIM): 3 Problem Solving(FIM): 3 Memory(FIM): 3 Additional Goals: 2-Verbalize Understanding, 3-ImproveStrength/[place] 1=Demonstrate adherence to instructed precautions during ADL tasks. 2=Patient will verbalize/demonstrate understanding of assistive devices/ modifications for ADL. 3=Patient will improve strength/tolerance for activity to enable patient to perform ADL's. OT Education/Plan Problem List/Assessment Pt would benefit from skilled OT to increase her independence in basic self care skills to allow her to safely return to her home to live with her and to decrease caregiver burden. Discharge Recommendations Plan/Recommendations: Continue POC Treatment Plan/Plan of Care Patient would benefit from OT for education, treatment and training to promote independence in ADL's, mobility, safety and/or upper extremity function for ADL' s. Plan of Care: ADL Retraining, Functional Mobility, Group Exercise/Act as Ind ( education, exercise, funct activity, communication, socialization), UE Funct Exercise/Act, UE Neuromus Re-Ed/Coord Treatment Duration: May 21, 2017 Visits Per Week: 10-11 Minutes/Day (M-F): 75-90 Minutes/Day (Sat/Anders): PRN Agreement: Yes Rehab Potential: Guarded (prior CVA) Time/GCodes Start Time: 10:45 Stop Time: 12:15 Total Time Billed (hr/min): 90 Billed Treatment Time visit, 90 minutes ADL STEVEN JONES OT Apr 29, 2017 13:02
--- NOTE | 2017-04-29 13:50 | Physical Therapy Daily Note ---
PT Daily Note-Current Subjective Patient is in recliner and agrees to PT. Pain Numeric Pain Scale: 0-No Pain Location: No Pain Reported Mental Status Patient Orientation: Non-Verbal/Aphasic Transfers Functional [place] Measure 0=Not Assessed/NA 4=Minimal Assistance 1=Total Assistance 5=Supervision or Setup 2=Maximal Assistance 6=Modified [place] 3=Moderate Assistance 7=Complete IndependenceIRFPAI Quality Coding Scale 6 Independent with activity with or without an assistive device 5 Patient requires set up or clean up by helper. Patient completes activity by themselves 4 Supervision or touching assist (CGA). [place] provide cues , steadying assist 3 The helper provides less than half the effort to complete the activity 2 The helper provides more than half the effort to complete the activity 1 Dependent. The helper does all the effort to complete an activity 7 Patient refused to complete or attempt activity 9 The patient did not perform the activity before the current illness or injury 88 Not attempted due to Medical conditions or safety concerns Transfers (B, C, W/C) (FIM): 4 Scootin Sit to/from Stand: 4 Sit to Stand (QC): 4 Car Transfer (QC): 3 Patient demonstrates increased difficulty with negotiating car transfer ( diminished problem solving skills) Gait Training Does the Patient Walk?: Yes Gait (FIM): 2 Distance (FIM): 2=526-26 ft Distance: 125' x 2 Walk 10 feet (QC): 4 Walk 50 ft with 2 Turns(QC): 4 Gait Level of Assist: 4 Gait Persons Needed: 1 Gait Assistive Device: FWW flexed knee posture, shuffle gait sequence with right LE lag due to weakness and fatigue Exercises NuStep Minutes: 10 NuStep Workload: 4 Treatments NuStep to improve reciprocal movement and increase strength to improve gait sequence Assessment Patient fatigued with treatment and requires time to complete all functional tasks. PT Short Term Goals Short Term Goals Time Frame: May 12, 2017 Transfers (B,C,W/C) (FIM): 5 Gait (FIM): 5 PT Senior Living Goals Slot Machine Department Floorperson Goals PT Slot Machine Department Floorperson Goals Time Frame: May 26, 2017 Transfers (B,C,W/C) (FIM): 6 Sit to Lying (QC): 6 Lying-Sitting on Side/Bed(QC): 6 Sit to Stand (QC): 6 Rollin Roll Left to Right (QC): 6 Chair/Qez-ip-Jpkfx Xfer(QC): 6 Car Transfer (QC): 5 Does the Patient Walk: Yes Gait (FIM): 6 Gait distance (FIM): 3=150 ft Walk 10 feet (QC): 6 Walk 10ft-Uneven Surface(QC): 6 Walk 50ft with 2 Turns (QC): 6 Walk 150 ft (QC): 6 Gait Level of Assist: 6 Gait Assistive Device: FWW Does the Pt use WC or Scooter?: No Stairs (FIM): 5 # of Steps: 8 1 Step (curb) (QC): 5 4 Steps (QC): 5 12 Steps (QC): 88 Picking up an Object (QC): 5 PT Plan Treatment/Plan Treatment Plan: Continue Plan of Care Treatment Plan: Bed Mobility, Education, Functional Activity [place], Functional Strength, Group Therapy, Gait, Safety, Therapeutic Exercise, Transfers Treatment Duration: May 26, 2017 Visits Per Week: 10-15 Time/GCodes Time In: 1315 Time Out: 1345 Total Billed Treatment Time: 30 Total Billed Treatment 1 visit GT 20 min EX 10 min CHRISTIANNE HOWARD PT Apr 29, 2017 13:50
[2017-04-29 18:13] VITALS: BP 152/100
--- NOTE | 2017-04-29 18:20 | Individualized Plan of Care ---
Individualized Plan of Care Rehab Nursing IPOC Order Admission Date Apr 28, 2017 at 13:23 Current Orders Orders Automatic Tray (04/28/17 18:25) Potassium Chloride (Tablet) (K Dur Table (04/29/17 08:45) Patient Visit (04/29/17 ) Speech Sound Lang Comp (04/29/17 ) Patient Visit (04/29/17 ) Exercise Therap, Ea 15 Min (04/29/17 ) Gait Training, Ea 15 Min (04/29/17 ) Patient Visit (04/29/17 ) Gait Training, Ea 15 Min (04/29/17 ) Exercise Therap, Ea 15 Min (04/29/17 ) Rehab Nursing Orders: Diseage Management, Edu in Press Rel Techn, Hydration Management, Nutrition Management, Pain Management Toilet every (bladder): (hrs): 2 hours while awake prn PT IPOC Problem List: Activity Tolerance, Functional Strength, Safety, Balance, Gait, Transfer, Bed Mobility Treatment Plan: Continue Plan of Care Bed Mobility, Education, Functional Activity [place], Functional Strength, Group Therapy, Gait, Safety, Therapeutic Exercise, Transfers Treatment Duration: May 26, 2017 Visits Per Week: 10-15 Minutes/Day (M-F): 75-90 Minutes/Day (Sat/Anders): prn OT IPOC Problems: Decreased Safety Aware, Decreased UE Strength, Dependent Transfers, Impaired Bed Mobility, Impaired Cognition, Impaired Coordination, Impaired Funct Balance, Impaired Self-Care Skills, Visual-Perceptual Deficit OT Problems Pt would benefit from skilled OT to increase her independence in basic self care skills to allow her to safely return to her home to live with her and to decrease caregiver burden. Plan of Care: ADL Retraining, Functional Mobility, Group Exercise/Act as Ind ( education, exercise, funct activity, communication, socialization), UE Funct Exercise/Act, UE Neuromus Re-Ed/Coord Treatment Duration: May 21, 2017 Visits Per Week: 10-11 Minutes/Day (M-F): 75-90 Minutes/Day (Sat/Anders): PRN ST IPOC Speech Therapy Treatment Plan: Continue Plan of Care Treatment Duration: Apr 29, 2017 Visits Per Week: Five. Minutes/Day (M-F): 30 Physician IPOC Medical Issues being managed closely and that require the 24 hour availability of a physician: recuurent stroke with OAC on hold for now, Chronic A FIB,HTN Glaucoma, Blindness rt eye Medical Issues: Bowel/Bladder Function, DVT Prophylaxis, Falls Precautions, Fluid/Electrolyte/Nutrition Balance, Infection Protection, Pain Management, Swallowing Precautions, Other (List) (as per above) Brief Synthesis of Preadmission Screen, Post-Admission Evaluation, and Therapy Evaluations:81 yo female who sustained a recurrent Left Cva with HP and Aphasia with OAC on hold fror now due risk for bleed for 2 more weeks Discussed case with DR Otto today Had been Modified Independent for Mobility prior to this with mobility and living at home with spouse and C Had been on IRU this past February and did well Patient has suppotive family.On methotrexate for RA Medical Prognosis: good Anticipated Length of Stay: 05/21/17 Rehab Goals Modified Independent to supervision for adls and mobility skills as well communication skills. Anticipated discharge destinat: Home with spouse and [facility] JESSI JONES MD Apr 29, 2017 18:20
[2017-04-29] MEDS: SIMvastatin 40 MG (ZOCOR) TAB PO SCH (20:15)
[2017-04-29] MEDS: LATANOPROST 0.005% (XALATAN) OPHTH SOLN 2.5 ML OU SCH (20:24)
[2017-04-30] MEDS: LEVOTHYROXINE 75 MCG (LEVOTHROID) TABLET PO SCH (05:39)
[2017-04-30 05:52] VITALS: BP 108/67
[2017-04-30] MEDS: DIGOXIN 0.125 MG (LANOXIN) TAB PO SCH (08:20)
[2017-04-30] MEDS: lisINopril 10 MG (PRINIVIL) TAB PO SCH (08:21)
[2017-04-30] MEDS: FOLIC ACID 1 MG TAB PO SCH ×2 (08:21→19:50)
[2017-04-30] MEDS: GABAPENTIN 300 MG (NEURONTIN) CAP PO SCH ×2 (08:22→19:50)
[2017-04-30] MEDS: ATENOLOL 25 MG (TENORMIN) TAB PO SCH (08:22)
--- NOTE | 2017-04-30 08:23 | PM & R (SOAP) Progress Note ---
Subjective Time Seen by Provider: 07:55 Subjective/Events-last exam Patient was seen in her room this AM Slept OK Denies any pain.Patient min assist for transfers Objective Exam Last Set of Vital Signs Vital Signs Date Time Temp Pulse Resp B/P (MAP) Pulse Ox O2 Delivery O2 Flow Rate FiO2 04/30/17 05:52 98.7 64 18 108/67 95 Room Air Capillary Refill : Less Than 3 Seconds I&O Intake and Output 04/30/17 00:00 Intake Total 1150 ml Balance 1150 ml Intake Oral 1150 ml # Voids 7 General: Alert, Cooperative, No Acute Distress HEENT: Atraumatic, PERRLA, EOMI, Mucous Memb Moist/[place]: Supple, No JVD Lungs: Clear to Auscultation Heart: Other (irregular) Abdomen: Normal Bowel Sounds, Soft Extremities: No Edema Neuro: Other (RT HP and aphasia) Results Lab Laboratory Tests 04/29/17 05:02: White Blood Count 4.9, Red Blood Count 4.03L, Hemoglobin 12.6, Hematocrit 39, Mean Corpuscular Volume 96, Mean Corpuscular Hemoglobin 31, Mean Corpuscular Hemoglobin Concent 33, Red Cell Distribution Width 15.0H, Platelet Count 195, Mean Platelet Volume 10.1, Neutrophils (%) (Auto) 50, Lymphocytes (%) (Auto) 36 , Monocytes (%) (Auto) 9, Eosinophils (%) (Auto) 4, Basophils (%) (Auto) 1, Neutrophils # (Auto) 2.4, Lymphocytes # (Auto) 1.8, Monocytes # (Auto) 0.4, Eosinophils # (Auto) 0.2, Basophils # (Auto) 0.0, Sodium Level 143, Potassium Level 3.5L, Chloride Level 105, Carbon Dioxide Level 26, Anion Gap 12, Blood Urea Nitrogen 10, Creatinine 0.61, Estimat Glomerular Filtration Rate > 60, BUN/ Creatinine Ratio 16, Glucose Level 85, Calcium Level 9.0, Total Bilirubin 0.5, Aspartate Amino Transf (AST/SGOT) 15, Alanine Aminotransferase (ALT/SGPT) 13, Alkaline Phosphatase 48, Total Protein 5.4L, Albumin 3.4 Assessment/Plan Assessment 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 JESSI JONES MD Apr 30, 2017 08:23
[2017-04-30] MEDS: BRIMONIDINE 0.2% (ALPHAGAN) OPHTH SOLN 5 ML BTL OU SCH ×3 (08:25→19:52)
[2017-04-30] MEDS: prednisoLONE 1% OPTH (PRED FORTE) 5 ML BTL OD SCH ×4 (08:40→19:52)
[2017-04-30] MEDS: CYCLOPENTOLATE 1% (CYCLOGYL) 2 ML DROPS OP SCH ×2 (08:51→19:51)
[2017-04-30] MEDS: TIMOLOL MALEATE 0.5% 5 ML (TIMOPTIC) BTL OU SCH ×2 (08:54→19:52)
--- NOTE | 2017-04-30 09:09 | Occupational Ther Daily Note ---
OT Current Status-Daily Note Subjective Pt lying in bed, alert. Pt agreed to therapy. No c/o pain at this time. Mental Status/Objective Patient Orientation: Person, Place, Time, Situation Functional [place] Measure 0=Not Assessed/NA 4=Minimal Assistance 1=Total Assistance 5=Supervision or Setup 2=Maximal Assistance 6=Modified [place] 3=Moderate Assistance 7=Complete [place] ADL-Treatment Pt declined taking shower this am. Bed mobility with min A then ambulated with FWW to bathroom with CGA. Pt transferred to toilet with CGA using grabbars and FWW. Completed toileting hygiene after set up. Pt incontinent of urine. Pt doffed night gown by self then no clothing available at this time put on so hospital gown was donned. Pt ambulated to sink to wash hands, set up required and pt beginning to fatigue, min A for ambulation. Pt ambulated to recliner for breakfast. Set up required and supervision for eating to cue on where items were on tray and which utensil to use. Pt had some difficulty with distinguishing between fork and spoon. Pt was able to use fork appropriately to eat eggs and was able to bring cup to mouth without spillage. After therapy , pt sitting in room with call light/phone in reach. Nrsg present in room. Functional [place] Measure 0=Not Assessed/NA 4=Minimal Assistance 1=Total Assistance 5=Supervision or Setup 2=Maximal Assistance 6=Modified [place] 3=Moderate Assistance 7=Complete IndependenceIRFPAI Quality Coding Scale 6 Independent with activity with or without an assistive device 5 Patient requires set up or clean up by helper. Patient completes activity by themselves 4 Supervision or touching assist (CGA). [place] provide cues , steadying assist 3 The helper provides less than half the effort to complete the activity 2 The helper provides more than half the effort to complete the activity 1 Dependent. The helper does all the effort to complete an activity 7 Patient refused to complete or attempt activity 9 The patient did not perform the activity before the current illness or injury 88 Not attempted due to Medical conditions or safety concerns Eating (FIM): 5 Eating (QC): 5 Grooming (FIM): 5 Oral Hygiene (QC): 5 Lower Body Dressing (FIM): 4 Toileting (FIM): 4 Transfers (B, C, W/C) (FIM): 4 Toilet/Commode Transfer (FIM): 4 OT Short Term Goals Short Term Goals Time Frame: May 07, 2017 Eating(FIM): 5 Grooming(FIM): 4 Bathing(FIM): 4 Upper Body Dressing(FIM): 4 Lower Body Dressing(FIM): 4 Toileting(FIM): 4 Transfers (B,C,W/C) (FIM): 5 Toilet/Commode Transfer(FIM): 4 Additional Short Term Goals: 2-Verbalize Understanding, 3-ImproveStrength/[place] 1=Demonstrate adherence to instructed precautions during ADL tasks. 2=Patient will verbalize/demonstrate understanding of assistive devices/ modifications for ADL. 3=Patient will improve strength/tolerance for activity to enable patient to perform ADL's. OT Devulcanizer Operator Goals Devulcanizer Operator Goals Time Frame: May 21, 2017 Eating (FIM): 6 Eating (QC): 6 Groomin Oral Hygiene (QC): 5 Bathing(FIM): 5 Shower/Bathe Self (QC): 5 Upper Body Dressing(FIM): 5 Upper Body Dressing (QC): 5 Lower Body Dressing(FIM): 5 Lower Body Dressing (QC): 5 On/Off Footwear (QC): 5 Toileting(FIM): 5 Toileting Hygiene (QC): 5 Toilet/Commode Transfer(FIM): 5 Toilet/Commode Transfer (QC): 5 Shower Transfer(FIM): 5 Comprehension(FIM): 2 Expression (FIM): 2 Social Interaction(FIM): 3 Problem Solving(FIM): 3 Memory(FIM): 3 Additional Goals: 2-Verbalize Understanding, 3-ImproveStrength/[place] 1=Demonstrate adherence to instructed precautions during ADL tasks. 2=Patient will verbalize/demonstrate understanding of assistive devices/ modifications for ADL. 3=Patient will improve strength/tolerance for activity to enable patient to perform ADL's. OT Education/Plan Problem List/Assessment Pt would benefit from skilled OT to increase her independence in basic self care skills to allow her to safely return to her home to live with her and to decrease caregiver burden. Discharge Recommendations Plan/Recommendations: Continue POC Treatment Plan/Plan of Care Patient would benefit from OT for education, treatment and training to promote independence in ADL's, mobility, safety and/or upper extremity function for ADL' s. Plan of Care: ADL Retraining, Functional Mobility, Group Exercise/Act as Ind ( education, exercise, funct activity, communication, socialization), UE Funct Exercise/Act, UE Neuromus Re-Ed/Coord Treatment Duration: May 21, 2017 Visits Per Week: 10-11 Minutes/Day (M-F): 75-90 Minutes/Day (Sat/Anders): PRN Agreement: Yes Rehab Potential: Guarded (prior CVA) Time/GCodes Start Time: 08:00 Stop Time: 09:00 Total Time Billed (hr/min): 60 Billed Treatment Time 1 visit-ADL 4 (60 min) HUSSEIN PERDOMO Apr 30, 2017 09:09
--- NOTE | 2017-04-30 10:00 | Physical Therapy Daily Note ---
PT Daily Note-Current Subjective Patient in recliner pre tx, agrees to PT, no complaints of pain. Appearance Patient in recliner post tx with nurse call, phone, tray, all needs met. Mental Status Patient Orientation: Unable to Assess Transfers Functional [place] Measure 0=Not Assessed/NA 4=Minimal Assistance 1=Total Assistance 5=Supervision or Setup 2=Maximal Assistance 6=Modified [place] 3=Moderate Assistance 7=Complete IndependenceIRFPAI Quality Coding Scale 6 Independent with activity with or without an assistive device 5 Patient requires set up or clean up by helper. Patient completes activity by themselves 4 Supervision or touching assist (CGA). [place] provide cues , steadying assist 3 The helper provides less than half the effort to complete the activity 2 The helper provides more than half the effort to complete the activity 1 Dependent. The helper does all the effort to complete an activity 7 Patient refused to complete or attempt activity 9 The patient did not perform the activity before the current illness or injury 88 Not attempted due to Medical conditions or safety concerns Transfers (B, C, W/C) (FIM): 4 Sit to/from Stand: 4 CGA, cues for safety and hand placement Gait Training Gait (FIM): 4 Distance: 150', 75'x2 Gait Level of Assist: 4 Gait Persons Needed: 1 Gait Assistive Device: FWW Patient ambulates with CGA, slow, shuffling, step-to gait. Patient fatigues quickly. Exercises Attempted to perform exercises in the parallel bars but patient wanted to get on the NuStep instead, ok since she needs to work on strength and endurance. NuStep Minutes: 15 NuStep Workload: 5 Treatments transfers, ambulation, functional strengthening Assessment Current Status: Fair Progress improving endurance, able to ambulate further PT Short Term Goals Short Term Goals Time Frame: May 12, 2017 Transfers (B,C,W/C) (FIM): 5 Gait (FIM): 5 PT Nut Packer Goals Nut Packer Goals PT Nut Packer Goals Time Frame: May 26, 2017 Transfers (B,C,W/C) (FIM): 6 Sit to Lying (QC): 6 Lying-Sitting on Side/Bed(QC): 6 Sit to Stand (QC): 6 Rollin Roll Left to Right (QC): 6 Chair/Lxv-gj-Nbs[place] Xfer(QC): 6 Car Transfer (QC): 5 Does the Patient Walk: Yes Gait (FIM): 6 Gait distance (FIM): 3=150 ft Walk 10 feet (QC): 6 Walk 10ft-Uneven Surface(QC): 6 Walk 50ft with 2 Turns (QC): 6 Walk 150 ft (QC): 6 Gait Level of Assist: 6 Gait Assistive Device: FWW Does the Pt use WC or Scooter?: No Stairs (FIM): 5 # of Steps: 8 1 Step (curb) (QC): 5 4 Steps (QC): 5 12 Steps (QC): 88 Picking up an Object (QC): 5 PT Plan Problem List Problem List: Activity Tolerance, Functional Strength, Safety, Balance, Gait, Transfer, Bed Mobility Treatment/Plan Treatment Plan: Continue Plan of Care Treatment Plan: Bed Mobility, Education, Functional Activity [place], Functional Strength, Group Therapy, Gait, Safety, Therapeutic Exercise, Transfers Treatment Duration: May 26, 2017 Visits Per Week: 10-15 Minutes/Day (M-F): 75-90 Minutes/Day (Sat/Anders): prn Safety Risks/Education Patient Education: Gait Training, Transfer Techniques, Correct Positioning, Safety Issues Teaching Recipient: Patient Teaching Methods: Demonstration, Discussion Response to Teaching: Reinforcement Needed Time/GCodes Time In: 915 Time Out: 1000 Total Billed Treatment Time: 45 Total Billed Treatment 1 visit GT 30' EX 15' RETA PENA PT Apr 30, 2017 10:00
--- NOTE | 2017-04-30 11:32 | Speech Therapy Daily Note ---
Speech Daily Progress Note Subjective Date Seen by Provider: Apr 30, 2017 Time Seen by Provider: 10:00 The patient was seated upright in recliner upon entrance. The patient greeted the clinician with a smile and eye contact. The patient was agreeable to participation in the language session. To note, the patient's was present for half of the treatment session. Objective Yes/No Questions: The patient demonstrated 56% accuracy with simple yes and no questions. Information was provided verbally and in writing in attempts to increase visual aids. Object Naming: The patient was unable to name common ADL items in isolation. The patient was able to identify a cup and spoon on one occasion in a field of two by object description/function. The patient's accuracy was inconsistent, as she was unable to identify the cup or spoon on any other occasion. Repetition: The patient was unable to repeat single syllable words with maximum clinician cueing and provided in written form. Orientation: The patient was able to state her name to the clinician. The patient was unable to identify orientation information with yes/no options ( month, year, day of week). The patient continues to demonstrate extreme difficulty with communication, displaying frequent frustration throughout the session. Assessment Assessment Current Status: Poor Progress Communication Comprehension: 4 Expression: 2 Social Cognition Social Interaction: 2 Problem Solvin Memory: 4 Speech Short Term Goals Short Term Goals Short Term Goals 1. The patient will identify items included in ADL activities with 80% accuracy in a field of two. 2. The patient will demonstrate accurate use of ADL items with 80% accuracy and mild clinician cueing. 3. The patient will follow one-step commands with 80% accuracy. Time Frame-STG: Two Weeks Speech Irrigation Specialist Goals Retirement Goals The patient will demonstrate improvement with expressive and receptive language to increase functional communication in the least restrictive setting. Time Frame: Three Weeks Comprehension: 2 Expression: 2 Social Interaction: 3 Problem Solvin Memory: 3 Speech-Plan Treatment Plan Speech Therapy Treatment Plan: Continue Plan of Care Continue skilled speech pathology to target functional expressive and receptive communication. Treatment Duration: Apr 29, 2017 # of days/week Five. Visits Per Week: Five. Minutes/Day (M-F): 30 Rehab Potential: Guarded (prior CVA) Safety Risks/Education Teaching Recipient: Patient, Significant Other Teaching Methods: Discussion Response to Teaching: Unable to Return Demonstration Education Topics Provided: Repetition of Single Syllable Words Time Speech Therapy Time In: 10:00 Speech Therapy Time Out: 10:45 Total Billed Time: 45 Billed Treatment Time 1, MATTHIEU BRAVO Apr 30, 2017 11:32
--- NOTE | 2017-04-30 14:43 | Occupational Ther Daily Note ---
OT Current Status-Daily Note Subjective Pt alert, sitting in recliner. Pt starting lunch. Pt agreed to therapy. No c/ o pain. Mental Status/Objective Patient Orientation: Person, Place, Non-Verbal/Aphasic, Time, Situation Functional [place] Measure 0=Not Assessed/NA 4=Minimal Assistance 1=Total Assistance 5=Supervision or Setup 2=Maximal Assistance 6=Modified [place] 3=Moderate Assistance 7=Complete [place] ADL-Treatment While eating pt using R hand to grasp spoon to scoop and eat food. Pt pushed food onto spoon with L fingers. RODNEY demonstrated to pt how to use another spoon instead of fingers. Pt then continued to use L hand to scoop food. Then used L fingers to fruit picker peaches to eat. Pt was able to grasp cups to drink from. After therapy, pt sitting in recliner with call light/phone in reach. All needs met in room. Functional [place] Measure 0=Not Assessed/NA 4=Minimal Assistance 1=Total Assistance 5=Supervision or Setup 2=Maximal Assistance 6=Modified [place] 3=Moderate Assistance 7=Complete IndependenceIRFPAI Quality Coding Scale 6 Independent with activity with or without an assistive device 5 Patient requires set up or clean up by helper. Patient completes activity by themselves 4 Supervision or touching assist (CGA). [place] provide cues , steadying assist 3 The helper provides less than half the effort to complete the activity 2 The helper provides more than half the effort to complete the activity 1 Dependent. The helper does all the effort to complete an activity 7 Patient refused to complete or attempt activity 9 The patient did not perform the activity before the current illness or injury 88 Not attempted due to Medical conditions or safety concerns OT Short Term Goals Short Term Goals Time Frame: May 07, 2017 Eating(FIM): 5 Grooming(FIM): 4 Bathing(FIM): 4 Upper Body Dressing(FIM): 4 Lower Body Dressing(FIM): 4 Toileting(FIM): 4 Transfers (B,C,W/C) (FIM): 5 Toilet/Commode Transfer(FIM): 4 Additional Short Term Goals: 2-Verbalize Understanding, 3-ImproveStrength/[place] 1=Demonstrate adherence to instructed precautions during ADL tasks. 2=Patient will verbalize/demonstrate understanding of assistive devices/ modifications for ADL. 3=Patient will improve strength/tolerance for activity to enable patient to perform ADL's. OT Residential Goals Residential Goals Time Frame: May 21, 2017 Eating (FIM): 6 Eating (QC): 6 Groomin Oral Hygiene (QC): 5 Bathing(FIM): 5 Shower/Bathe Self (QC): 5 Upper Body Dressing(FIM): 5 Upper Body Dressing (QC): 5 Lower Body Dressing(FIM): 5 Lower Body Dressing (QC): 5 On/Off Footwear (QC): 5 Toileting(FIM): 5 Toileting Hygiene (QC): 5 Toilet/Commode Transfer(FIM): 5 Toilet/Commode Transfer (QC): 5 Shower Transfer(FIM): 5 Comprehension(FIM): 2 Expression (FIM): 2 Social Interaction(FIM): 3 Problem Solving(FIM): 3 Memory(FIM): 3 Additional Goals: 2-Verbalize Understanding, 3-ImproveStrength/[place] 1=Demonstrate adherence to instructed precautions during ADL tasks. 2=Patient will verbalize/demonstrate understanding of assistive devices/ modifications for ADL. 3=Patient will improve strength/tolerance for activity to enable patient to perform ADL's. OT Education/Plan Problem List/Assessment Pt would benefit from skilled OT to increase her independence in basic self care skills to allow her to safely return to her home to live with her and to decrease caregiver burden. Discharge Recommendations Plan/Recommendations: Continue POC Treatment Plan/Plan of Care Patient would benefit from OT for education, treatment and training to promote independence in ADL's, mobility, safety and/or upper extremity function for ADL' s. Plan of Care: ADL Retraining, Functional Mobility, Group Exercise/Act as Ind ( education, exercise, funct activity, communication, socialization), UE Funct Exercise/Act, UE Neuromus Re-Ed/Coord Treatment Duration: May 21, 2017 Visits Per Week: 10-11 Minutes/Day (M-F): 75-90 Minutes/Day (Sat/Anders): PRN Agreement: Yes Rehab Potential: Guarded (prior CVA) Time/GCodes Start Time: 11:45 Stop Time: 12:00 Total Time Billed (hr/min): 15 Billed Treatment Time 1 visit-FA 1 (15 min) HUSSEIN PERDOMO Apr 30, 2017 14:43
--- NOTE | 2017-04-30 14:57 | Therapy Group Daily Note ---
Therapy Daily Group Note Patient Education Topic Other List Below (Memory) Exercises LE Seated Exercise Other/Notes Pt started to ambulate with min A using FWW to OT/PT group. Pt made it half- way then needed a w/c to get the rest of the way. OT/PT group consisted of introductions (name, place living, childhood memory), education on importance of memory, strategies for memory, memory task (matching pictures) and LE seated exercises. Pt has aphasia, unable to voice introductions, RODNEY assisted and pt confirmed with nod of head. Pt was attentive to education though unable to contribute due to aphasia. Pt was able to use hands to choose # placement of pictures to match. After group, pt went to bathroom and used toilet then ambulated with min A using FWW to recliner. Pt sat in recliner with call light/ phone in reach. All needs met in room. Start Time: 13:00 Stop Time: 14:10 Total Billed Treatment Time: 70 Total Billed Treatment 1-GRP HUSSEIN PERDOMO Apr 30, 2017 14:57
[2017-04-30 17:13] VITALS: BP 116/70
[2017-04-30] MEDS: ZINC OXIDE 16% OINT (BUTT PASTE) 113 GM TUBE TOP SCH (17:19)
[2017-04-30] MEDS: SIMvastatin 40 MG (ZOCOR) TAB PO SCH (19:50)
[2017-04-30] MEDS: LATANOPROST 0.005% (XALATAN) OPHTH SOLN 2.5 ML OU SCH (22:28)
[2017-05-01 05:24] VITALS: BP 125/72
[2017-05-01] MEDS: LEVOTHYROXINE 75 MCG (LEVOTHROID) TABLET PO SCH (06:10)
[2017-05-01] MEDS: GABAPENTIN 300 MG (NEURONTIN) CAP PO SCH ×2 (08:18→20:13)
[2017-05-01] MEDS: FOLIC ACID 1 MG TAB PO SCH ×2 (08:18→20:13)
[2017-05-01] MEDS: lisINopril 10 MG (PRINIVIL) TAB PO SCH (08:20)
[2017-05-01] MEDS: DIGOXIN 0.125 MG (LANOXIN) TAB PO SCH (08:20)
[2017-05-01] MEDS: ATENOLOL 25 MG (TENORMIN) TAB PO SCH (08:21)
[2017-05-01] MEDS: BRIMONIDINE 0.2% (ALPHAGAN) OPHTH SOLN 5 ML BTL OU SCH ×3 (08:22→20:13)
[2017-05-01] MEDS: TIMOLOL MALEATE 0.5% 5 ML (TIMOPTIC) BTL OU SCH ×2 (08:23→20:14)
[2017-05-01] MEDS: prednisoLONE 1% OPTH (PRED FORTE) 5 ML BTL OD SCH ×4 (08:24→20:14)
[2017-05-01] MEDS: ZINC OXIDE 16% OINT (BUTT PASTE) 113 GM TUBE TOP SCH ×2 (10:25→20:16)
[2017-05-01] MEDS: ACETAMINOPHEN 500 MG TAB (TYLENOL) PO PRN (11:23)
--- NOTE | 2017-05-01 12:33 | Physical Therapy Daily Note ---
PT Daily Note-Current Subjective pt. in bed curled up on her side. Looks very sad or tired. Cant express herself but indicates she is having a bad day. Nurse present to try to figure out pts c/ o Pain Comment: it appears pt is in pain in her bottom or jose rafael area Mental Status Patient Orientation: Non-Verbal/Aphasic Transfers Functional [place] Measure 0=Not Assessed/NA 4=Minimal Assistance 1=Total Assistance 5=Supervision or Setup 2=Maximal Assistance 6=Modified [place] 3=Moderate Assistance 7=Complete IndependenceIRFPAI Quality Coding Scale 6 Independent with activity with or without an assistive device 5 Patient requires set up or clean up by helper. Patient completes activity by themselves 4 Supervision or touching assist (CGA). [place] provide cues , steadying assist 3 The helper provides less than half the effort to complete the activity 2 The helper provides more than half the effort to complete the activity 1 Dependent. The helper does all the effort to complete an activity 7 Patient refused to complete or attempt activity 9 The patient did not perform the activity before the current illness or injury 88 Not attempted due to Medical conditions or safety concerns Transfers (B, C, W/C) (FIM): 4 Scootin Rollin Supine to/from Sit: 5 Sit to/from Stand: 4 Bed to/from Chair: 4 Gait Training Does the Patient Walk?: Yes Gait (FIM): 2 Distance (FIM): 0=847-80 ft Gait Level of Assist: 3 Gait Persons Needed: 1 Gait Assistive Device: FWW assist for balance, short dist Exercises Seated Therapy Exercises: Ankle pumps, Long arc quads, Hip flexion Seated Reps: 8 Assessment Current Status: Good Progress PT Short Term Goals Short Term Goals Time Frame: May 12, 2017 Transfers (B,C,W/C) (FIM): 5 Gait (FIM): 5 PT Senior Care Goals Senior Care Goals PT Embroiderer Hand Goals Time Frame: May 26, 2017 Transfers (B,C,W/C) (FIM): 6 Sit to Lying (QC): 6 Lying-Sitting on Side/Bed(QC): 6 Sit to Stand (QC): 6 Rollin Roll Left to Right (QC): 6 Chair/Vrz-an-Muhqm Xfer(QC): 6 Car Transfer (QC): 5 Does the Patient Walk: Yes Gait (FIM): 6 Gait distance (FIM): 3=150 ft Walk 10 feet (QC): 6 Walk 10ft-Uneven Surface(QC): 6 Walk 50ft with 2 Turns (QC): 6 Walk 150 ft (QC): 6 Gait Level of Assist: 6 Gait Assistive Device: FWW Does the Pt use WC or Scooter?: No Stairs (FIM): 5 # of Steps: 8 1 Step (curb) (QC): 5 4 Steps (QC): 5 12 Steps (QC): 88 Picking up an Object (QC): 5 PT Plan Treatment/Plan Treatment Plan: Continue Plan of Care Treatment Plan: Bed Mobility, Education, Functional Activity [place], Functional Strength, Group Therapy, Gait, Safety, Therapeutic Exercise, Transfers Treatment Duration: May 26, 2017 Visits Per Week: 10-15 Minutes/Day (M-F): 75-90 Minutes/Day (Sat/Anders): prn Safety Risks/Education Patient Education: Gait Training, Transfer Techniques Teaching Recipient: Patient Teaching Methods: Demonstration Response to Teaching: Verbalize Understanding, Reinforcement Needed Time/GCodes Time In: 1105 Time Out: 1120 Total Billed Treatment Time: 15 Total Billed Treatment 1,FA15m G Codes Necessary: MOISE Miranda LABEL CUTTER May 01, 2017 12:33
[2017-05-01 17:28] VITALS: BP 149/78
[2017-05-01] MEDS: SIMvastatin 40 MG (ZOCOR) TAB PO SCH (20:13)
[2017-05-01] MEDS: LATANOPROST 0.005% (XALATAN) OPHTH SOLN 2.5 ML OU SCH (20:15)
[2017-05-02] MEDS: LEVOTHYROXINE 75 MCG (LEVOTHROID) TABLET PO SCH (05:54)
[2017-05-02 05:55] VITALS: BP 115/69
[2017-05-02] MEDS: prednisoLONE 1% OPTH (PRED FORTE) 5 ML BTL OD SCH ×4 (09:08→20:10)
[2017-05-02] MEDS: TIMOLOL MALEATE 0.5% 5 ML (TIMOPTIC) BTL OU SCH ×2 (09:09→20:10)
[2017-05-02] MEDS: CYCLOPENTOLATE 1% (CYCLOGYL) 2 ML DROPS OP SCH (09:09)
[2017-05-02] MEDS: FOLIC ACID 1 MG TAB PO SCH ×2 (09:10→20:10)
[2017-05-02] MEDS: lisINopril 10 MG (PRINIVIL) TAB PO SCH (09:10)
[2017-05-02] MEDS: DIGOXIN 0.125 MG (LANOXIN) TAB PO SCH (09:10)
[2017-05-02] MEDS: BRIMONIDINE 0.2% (ALPHAGAN) OPHTH SOLN 5 ML BTL OU SCH ×3 (09:10→20:10)
[2017-05-02] MEDS: GABAPENTIN 300 MG (NEURONTIN) CAP PO SCH ×2 (09:11→20:10)
[2017-05-02] MEDS: ZINC OXIDE 16% OINT (BUTT PASTE) 113 GM TUBE TOP SCH ×2 (09:11→20:11)
[2017-05-02] MEDS: ATENOLOL 25 MG (TENORMIN) TAB PO SCH (09:11)
[2017-05-02 17:26] VITALS: BP 131/85
[2017-05-02] MEDS: LATANOPROST 0.005% (XALATAN) OPHTH SOLN 2.5 ML OU SCH (20:09)
[2017-05-02] MEDS: SIMvastatin 40 MG (ZOCOR) TAB PO SCH (20:10)
[2017-05-03 05:19] VITALS: BP 124/76
[2017-05-03] MEDS: LEVOTHYROXINE 75 MCG (LEVOTHROID) TABLET PO SCH (05:28)
[2017-05-03] MEDS: GABAPENTIN 300 MG (NEURONTIN) CAP PO SCH ×2 (08:28→20:32)
[2017-05-03] MEDS: DIGOXIN 0.125 MG (LANOXIN) TAB PO SCH (08:28)
[2017-05-03] MEDS: ATENOLOL 25 MG (TENORMIN) TAB PO SCH (08:29)
[2017-05-03] MEDS: FOLIC ACID 1 MG TAB PO SCH ×2 (08:29→20:31)
[2017-05-03] MEDS: lisINopril 10 MG (PRINIVIL) TAB PO SCH (08:29)
[2017-05-03 08:30] VITALS: BP 117/71
[2017-05-03] MEDS: TIMOLOL MALEATE 0.5% 5 ML (TIMOPTIC) BTL OU SCH ×2 (08:30→20:32)
[2017-05-03] MEDS: CYCLOPENTOLATE 1% (CYCLOGYL) 2 ML DROPS OP SCH (08:30)
[2017-05-03] MEDS: ZINC OXIDE 16% OINT (BUTT PASTE) 113 GM TUBE TOP SCH ×2 (08:30→20:45)
[2017-05-03] MEDS: BRIMONIDINE 0.2% (ALPHAGAN) OPHTH SOLN 5 ML BTL OU SCH ×3 (08:31→20:32)
[2017-05-03] MEDS: prednisoLONE 1% OPTH (PRED FORTE) 5 ML BTL OD SCH ×4 (08:31→20:32)
--- NOTE | 2017-05-03 10:07 | Physical Therapy Daily Note ---
PT Daily Note-Current Subjective Initially smiles and is happy to see this ART CLASS MODEL, agrees to Rx. Appearance grimace on face occas, shakes head as if frustrated Mental Status Patient Orientation: Non-Verbal/Aphasic Transfers Functional [place] Measure 0=Not Assessed/NA 4=Minimal Assistance 1=Total Assistance 5=Supervision or Setup 2=Maximal Assistance 6=Modified [place] 3=Moderate Assistance 7=Complete IndependenceIRFPAI Quality Coding Scale 6 Independent with activity with or without an assistive device 5 Patient requires set up or clean up by helper. Patient completes activity by themselves 4 Supervision or touching assist (CGA). [place] provide cues , steadying assist 3 The helper provides less than half the effort to complete the activity 2 The helper provides more than half the effort to complete the activity 1 Dependent. The helper does all the effort to complete an activity 7 Patient refused to complete or attempt activity 9 The patient did not perform the activity before the current illness or injury 88 Not attempted due to Medical conditions or safety concerns Transfers (B, C, W/C) (FIM): 4 Scootin Rollin Roll Left to Right (QC): 4 Supine to/from Sit: 5 Sit to/from Stand: 4 Sit to Lying (QC): 5 Sit to Stand (QC): 4 Chair/Xux-ch-Rqkoc Xfer(QC): 4 Bed to/from Chair: 4 Gait Training Does the Patient Walk?: Yes Gait (FIM): 3 Distance (FIM): 3=150 ft (x2) Walk 10 feet (QC): 4 Walk 50 ft with 2 Turns(QC): 4 Walk 150 ft (QC): 4 Walking 10ft/uneven surface-QC: 3 Gait Level of Assist: 4 Gait Persons Needed: 1 Gait Assistive Device: FWW fatigued quickly today, was able to take more equal step length today most of the time. Exercises Seated Therapy Exercises: Ankle pumps, Sit to stand, Long arc quads, Hip flexion, Hip abd/add Seated Reps: 12 NuStep Minutes: 10 NuStep Workload: 2 Assessment Current Status: Good Progress fatigues quickly, continues right neglect PT Short Term Goals Short Term Goals Time Frame: May 12, 2017 Transfers (B,C,W/C) (FIM): 5 Gait (FIM): 5 PT Thermal Molder Goals Skilled Nursing Goals PT Thermal Molder Goals Time Frame: May 26, 2017 Transfers (B,C,W/C) (FIM): 6 Sit to Lying (QC): 6 Lying-Sitting on Side/Bed(QC): 6 Sit to Stand (QC): 6 Rollin Roll Left to Right (QC): 6 Chair/Iia-iu-Zdwfn Xfer(QC): 6 Car Transfer (QC): 5 Does the Patient Walk: Yes Gait (FIM): 6 Gait distance (FIM): 3=150 ft Walk 10 feet (QC): 6 Walk 10ft-Uneven Surface(QC): 6 Walk 50ft with 2 Turns (QC): 6 Walk 150 ft (QC): 6 Gait Level of Assist: 6 Gait Assistive Device: FWW Does the Pt use WC or Scooter?: No Stairs (FIM): 5 # of Steps: 8 1 Step (curb) (QC): 5 4 Steps (QC): 5 12 Steps (QC): 88 Picking up an Object (QC): 5 PT Plan Treatment/Plan Treatment Plan: Continue Plan of Care Treatment Plan: Bed Mobility, Education, Functional Activity [place], Functional Strength, Group Therapy, Gait, Safety, Therapeutic Exercise, Transfers Treatment Duration: May 26, 2017 Visits Per Week: 10-15 Minutes/Day (M-F): 75-90 Minutes/Day (Sat/Anders): prn Safety Risks/Education Patient Education: Gait Training, Transfer Techniques, Correct Positioning ( step length and gait sequence), Disease Process, Safety Issues Teaching Recipient: Patient Teaching Methods: Demonstration, Discussion Response to Teaching: Verbalize Understanding, Return Demonstration, Reinforcement Needed Time/GCodes Time In: 900 Time Out: 10 Total Billed Treatment Time: 60 Total Billed Treatment 1,NM15m,EX20m,GT25 G Codes Necessary: MOSIE Miranda ART CLASS MODEL May 03, 2017 10:07
[2017-05-03 11:00] VITALS: BP 122/77
[2017-05-03] MEDS: ACETAMINOPHEN 500 MG TAB (TYLENOL) PO PRN (11:10)
--- NOTE | 2017-05-03 11:20 | Occupational Ther Daily Note ---
OT Current Status-Daily Note Subjective Pt alert, sitting in recliner. Pt agreed to therapy. Pt requested to use toilet. Mental Status/Objective Patient Orientation: Person, Place, Non-Verbal/Aphasic, Time, Situation Functional [place] Measure 0=Not Assessed/NA 4=Minimal Assistance 1=Total Assistance 5=Supervision or Setup 2=Maximal Assistance 6=Modified [place] 3=Moderate Assistance 7=Complete [place] ADL-Treatment Pt ambulated with min A using FWW into bathroom. Pt LOB while going from sit to stand. Pt transferred to toilet using grabbar and FWW with CGA, cues on hand placement when standing up from toilet. Pt transferred into shower with CGA using shower bench, FWW and grabbars. Using grabbar, hand held shower and shower bench pt was set up for bathing then SBA in standing to bathe buttocks and jose rafael area. Pt dried self after set up. Clothes were placed on front of FWW for easy grasp and cue for what to do next. Pt was able to don u[[er body clothing with SBA, min A for lower body clothing and was able to sequence. Pt declined completing oral care. Nrsg present in room to give medications. Pt demonstrated SOA, vital signs taken (see nrsg notes). Pt fatigued easily during ADLs and required multiple recovery breaks. After therapy, pt sitting in recliner with call light/phone in reach. All needs met in room. Functional [place] Measure 0=Not Assessed/NA 4=Minimal Assistance 1=Total Assistance 5=Supervision or Setup 2=Maximal Assistance 6=Modified [place] 3=Moderate Assistance 7=Complete IndependenceIRFPAI Quality Coding Scale 6 Independent with activity with or without an assistive device 5 Patient requires set up or clean up by helper. Patient completes activity by themselves 4 Supervision or touching assist (CGA). [place] provide cues , steadying assist 3 The helper provides less than half the effort to complete the activity 2 The helper provides more than half the effort to complete the activity 1 Dependent. The helper does all the effort to complete an activity 7 Patient refused to complete or attempt activity 9 The patient did not perform the activity before the current illness or injury 88 Not attempted due to Medical conditions or safety concerns Bathing (FIM): 5 Upper Body (FIM): 5 Lower Body Dressing (FIM): 4 Toileting (FIM): 4 Transfers (B, C, W/C) (FIM): 4 Toilet/Commode Transfer (FIM): 4 Shower Transfer(FIM): 4 OT Short Term Goals Short Term Goals Time Frame: May 07, 2017 Eating(FIM): 5 Grooming(FIM): 4 Bathing(FIM): 4 Upper Body Dressing(FIM): 4 Lower Body Dressing(FIM): 4 Toileting(FIM): 4 Transfers (B,C,W/C) (FIM): 5 Toilet/Commode Transfer(FIM): 4 Additional Short Term Goals: 2-Verbalize Understanding, 3-ImproveStrength/[place] 1=Demonstrate adherence to instructed precautions during ADL tasks. 2=Patient will verbalize/demonstrate understanding of assistive devices/ modifications for ADL. 3=Patient will improve strength/tolerance for activity to enable patient to perform ADL's. OT Sewer Pipe Sorter Goals Mcc Goals Time Frame: May 21, 2017 Eating (FIM): 6 Eating (QC): 6 Groomin Oral Hygiene (QC): 5 Bathing(FIM): 5 Shower/Bathe Self (QC): 5 Upper Body Dressing(FIM): 5 Upper Body Dressing (QC): 5 Lower Body Dressing(FIM): 5 Lower Body Dressing (QC): 5 On/Off Footwear (QC): 5 Toileting(FIM): 5 Toileting Hygiene (QC): 5 Toilet/Commode Transfer(FIM): 5 Toilet/Commode Transfer (QC): 5 Shower Transfer(FIM): 5 Comprehension(FIM): 2 Expression (FIM): 2 Social Interaction(FIM): 3 Problem Solving(FIM): 3 Memory(FIM): 3 Additional Goals: 2-Verbalize Understanding, 3-ImproveStrength/[place] 1=Demonstrate adherence to instructed precautions during ADL tasks. 2=Patient will verbalize/demonstrate understanding of assistive devices/ modifications for ADL. 3=Patient will improve strength/tolerance for activity to enable patient to perform ADL's. OT Education/Plan Problem List/Assessment Pt would benefit from skilled OT to increase her independence in basic self care skills to allow her to safely return to her home to live with her and to decrease caregiver burden. Discharge Recommendations Plan/Recommendations: Continue POC Treatment Plan/Plan of Care Patient would benefit from OT for education, treatment and training to promote independence in ADL's, mobility, safety and/or upper extremity function for ADL' s. Plan of Care: ADL Retraining, Functional Mobility, Group Exercise/Act as Ind ( education, exercise, funct activity, communication, socialization), UE Funct Exercise/Act, UE Neuromus Re-Ed/Coord Treatment Duration: May 21, 2017 Visits Per Week: 10-11 Minutes/Day (M-F): 75-90 Minutes/Day (Sat/Anders): PRN Agreement: Yes Rehab Potential: Guarded (prior CVA) Time/GCodes Start Time: 08:00 Stop Time: 09:00 Total Time Billed (hr/min): 60 Billed Treatment Time 1 visit-ADL 4 (60 min) HUSSEIN PERDOMO May 03, 2017 11:20
--- NOTE | 2017-05-03 12:28 | Occupational Ther Daily Note ---
OT Current Status-Daily Note Subjective Pt eating lunch in recliner. Pt agreed to therapy. No c/o pain at this time. Mental Status/Objective Patient Orientation: Person, Place, Non-Verbal/Aphasic, Time, Situation Functional [place] Measure 0=Not Assessed/NA 4=Minimal Assistance 1=Total Assistance 5=Supervision or Setup 2=Maximal Assistance 6=Modified [place] 3=Moderate Assistance 7=Complete [place] ADL-Treatment Pt requires set up to eat. Pt declined any of the main meal today. Pt ate peached with R fingers and held bowl with L hand. Then used spoon with R hand to eat pudding. Pt has autotray and did not like the entree today. Pt was able to choose preferred food with choices of 2. Pt would shake head in affirmation instead of saying yes/no. Attempted to make yes/no choice board but pt unable to use successfully. After therapy, pt sitting in recliner with feet up and call light/phone in reach. All needs met in room. Safety measures in place. Functional [place] Measure 0=Not Assessed/NA 4=Minimal Assistance 1=Total Assistance 5=Supervision or Setup 2=Maximal Assistance 6=Modified [place] 3=Moderate Assistance 7=Complete IndependenceIRFPAI Quality Coding Scale 6 Independent with activity with or without an assistive device 5 Patient requires set up or clean up by helper. Patient completes activity by themselves 4 Supervision or touching assist (CGA). [place] provide cues , steadying assist 3 The helper provides less than half the effort to complete the activity 2 The helper provides more than half the effort to complete the activity 1 Dependent. The helper does all the effort to complete an activity 7 Patient refused to complete or attempt activity 9 The patient did not perform the activity before the current illness or injury 88 Not attempted due to Medical conditions or safety concerns Eating (FIM): 5 Eating (QC): 4 OT Short Term Goals Short Term Goals Time Frame: May 07, 2017 Eating(FIM): 5 Grooming(FIM): 4 Bathing(FIM): 4 Upper Body Dressing(FIM): 4 Lower Body Dressing(FIM): 4 Toileting(FIM): 4 Transfers (B,C,W/C) (FIM): 5 Toilet/Commode Transfer(FIM): 4 Additional Short Term Goals: 2-Verbalize Understanding, 3-ImproveStrength/[place] 1=Demonstrate adherence to instructed precautions during ADL tasks. 2=Patient will verbalize/demonstrate understanding of assistive devices/ modifications for ADL. 3=Patient will improve strength/tolerance for activity to enable patient to perform ADL's. OT Skilled Nursing Goals Sports Management Professor Goals Time Frame: May 21, 2017 Eating (FIM): 6 Eating (QC): 6 Groomin Oral Hygiene (QC): 5 Bathing(FIM): 5 Shower/Bathe Self (QC): 5 Upper Body Dressing(FIM): 5 Upper Body Dressing (QC): 5 Lower Body Dressing(FIM): 5 Lower Body Dressing (QC): 5 On/Off Footwear (QC): 5 Toileting(FIM): 5 Toileting Hygiene (QC): 5 Toilet/Commode Transfer(FIM): 5 Toilet/Commode Transfer (QC): 5 Shower Transfer(FIM): 5 Comprehension(FIM): 2 Expression (FIM): 2 Social Interaction(FIM): 3 Problem Solving(FIM): 3 Memory(FIM): 3 Additional Goals: 2-Verbalize Understanding, 3-ImproveStrength/[place] 1=Demonstrate adherence to instructed precautions during ADL tasks. 2=Patient will verbalize/demonstrate understanding of assistive devices/ modifications for ADL. 3=Patient will improve strength/tolerance for activity to enable patient to perform ADL's. OT Education/Plan Problem List/Assessment Pt would benefit from skilled OT to increase her independence in basic self care skills to allow her to safely return to her home to live with her and to decrease caregiver burden. Discharge Recommendations Plan/Recommendations: Continue POC Treatment Plan/Plan of Care Patient would benefit from OT for education, treatment and training to promote independence in ADL's, mobility, safety and/or upper extremity function for ADL' s. Plan of Care: ADL Retraining, Functional Mobility, Group Exercise/Act as Ind ( education, exercise, funct activity, communication, socialization), UE Funct Exercise/Act, UE Neuromus Re-Ed/Coord Treatment Duration: May 21, 2017 Visits Per Week: 10-11 Minutes/Day (M-F): 75-90 Minutes/Day (Sat/Anders): PRN Agreement: Yes Rehab Potential: Guarded (prior CVA) Time/GCodes Start Time: 11:30 Stop Time: 11:45 Total Time Billed (hr/min): 15 Billed Treatment Time 1 visit-FA 1 (15 min) HUSSEIN PERDOMO May 03, 2017 12:28
--- NOTE | 2017-05-03 14:14 | Physical Therapy Daily Note ---
PT Daily Note-Current Subjective Pt. indicates she needs to toilet before going to Rx. Pain Numeric Pain Scale: 0-No Pain Mental Status Patient Orientation: Non-Verbal/Aphasic Transfers Functional [place] Measure 0=Not Assessed/NA 4=Minimal Assistance 1=Total Assistance 5=Supervision or Setup 2=Maximal Assistance 6=Modified [place] 3=Moderate Assistance 7=Complete IndependenceIRFPAI Quality Coding Scale 6 Independent with activity with or without an assistive device 5 Patient requires set up or clean up by helper. Patient completes activity by themselves 4 Supervision or touching assist (CGA). [place] provide cues , steadying assist 3 The helper provides less than half the effort to complete the activity 2 The helper provides more than half the effort to complete the activity 1 Dependent. The helper does all the effort to complete an activity 7 Patient refused to complete or attempt activity 9 The patient did not perform the activity before the current illness or injury 88 Not attempted due to Medical conditions or safety concerns Transfers (B, C, W/C) (FIM): 4 sit to stand from recliner and toilet with min assist Gait Training Gait Assistive Device: FWW needs min assist and tactile and verbal cuing for initiating RLE gait step Treatments toileted with mod assist pants down and max assist to pull them up and clean self Assessment Current Status: Good Progress fatigues quickly PT Short Term Goals Short Term Goals Time Frame: May 12, 2017 Transfers (B,C,W/C) (FIM): 5 Gait (FIM): 5 PT Jewelry Appraiser Goals Jewelry Appraiser Goals PT Residential Goals Time Frame: May 26, 2017 Transfers (B,C,W/C) (FIM): 6 Sit to Lying (QC): 6 Lying-Sitting on Side/Bed(QC): 6 Sit to Stand (QC): 6 Rollin Roll Left to Right (QC): 6 Chair/Mce-ku-Koccu Xfer(QC): 6 Car Transfer (QC): 5 Does the Patient Walk: Yes Gait (FIM): 6 Gait distance (FIM): 3=150 ft Walk 10 feet (QC): 6 Walk 10ft-Uneven Surface(QC): 6 Walk 50ft with 2 Turns (QC): 6 Walk 150 ft (QC): 6 Gait Level of Assist: 6 Gait Assistive Device: FWW Does the Pt use WC or Scooter?: No Stairs (FIM): 5 # of Steps: 8 1 Step (curb) (QC): 5 4 Steps (QC): 5 12 Steps (QC): 88 Picking up an Object (QC): 5 PT Plan Treatment/Plan Treatment Plan: Continue Plan of Care Treatment Plan: Bed Mobility, Education, Functional Activity [place], Functional Strength, Group Therapy, Gait, Safety, Therapeutic Exercise, Transfers Treatment Duration: May 26, 2017 Visits Per Week: 10-15 Minutes/Day (M-F): 75-90 Minutes/Day (Sat/Anders): prn Safety Risks/Education Patient Education: Gait Training, Transfer Techniques Teaching Recipient: Patient Teaching Methods: Demonstration, Discussion Response to Teaching: Verbalize Understanding, Unable to Comprehend, Reinforcement Needed Time/GCodes Time In: 1345 Time Out: 1400 Total Billed Treatment Time: 15 Total Billed Treatment 1,GT15m G Codes Necessary: MOISE Miranda STATE WILDLIFE OFFICER May 03, 2017 14:14
--- NOTE | 2017-05-03 14:49 | Speech Therapy Daily Note ---
Speech Daily Progress Note Subjective Date Seen by Provider: May 03, 2017 Time Seen by Provider: 10:00 The patient was seated upright in recliner upon entrance. The patient greeted the clinician with a smile, however, did not attempt vocalization. The patient was agreeable to participation in the language treatment session with a head nod. Objective Orientation: The patient was unable to respond to simple and familiar yes and no questions on this date (name, month, location, city, year). The patient rarely made eye contact and consistently closed eyes throughout treatment session. Yes/No Questions: The patient displayed 0% accuracy with simple yes and no questions with moderate clinician verbal prompting on this date. Phrase Completion: The patient was unable to complete simple phrases (final word ) regardless of moderate clinician verbal prompting. Object Naming: The patient was unable to identify or name an ADL object in isolation or in a field of two (by name or function provided by the clinician). Assessment Assessment Current Status: Poor Progress Treatment Plan Continue Plan of Care Communication Comprehension: 1 Expression: 1 Social Cognition Social Interaction: 2 Problem Solvin Memory: 1 Speech Short Term Goals Short Term Goals Short Term Goals 1. The patient will identify items included in ADL activities with 80% accuracy in a field of two. 2. The patient will demonstrate accurate use of ADL items with 80% accuracy and mild clinician cueing. 3. The patient will follow one-step commands with 80% accuracy. Time Frame-STG: Two Weeks Speech Retirement Goals Building Architectural Designer Goals The patient will demonstrate improvement with expressive and receptive language to increase functional communication in the least restrictive setting. Time Frame: Three Weeks Comprehension: 2 Expression: 2 Social Interaction: 3 Problem Solvin Memory: 3 Speech-Plan Treatment Plan Speech Therapy Treatment Plan: Continue Plan of Care Continue skilled speech pathology to improve functional expressive and receptive communication. Treatment Duration: Apr 29, 2017 # of days/week Five. Visits Per Week: Five. Minutes/Day (M-F): 30 Rehab Potential: Guarded (prior CVA) Safety Risks/Education Teaching Recipient: Patient Teaching Methods: Discussion Response to Teaching: Reinforcement Needed Education Topics Provided: Word-Finding Strategies Time Speech Therapy Time In: 10:00 Speech Therapy Time Out: 10:30 Total Billed Time: 30 Billed Treatment Time RHETT KyleYTEXMATTHIEU ST May 03, 2017 14:49
[2017-05-03 15:15] VITALS: BP 105/57
--- NOTE | 2017-05-03 15:27 | PM & R (SOAP) Progress Note ---
Subjective Time Seen by Provider: 11:35 Subjective/Events-last exam Patient was seen in her room this AM Appreciate therapy notes Patient follows simple commands at times and participates in therapies but ST notes limited progress with aphasia Patient is min assist for transfers Review of Systems Neurological: Change in speech, Weakness Objective Exam Last Set of Vital Signs Vital Signs Date Time Temp Pulse Resp B/P (MAP) Pulse Ox O2 Delivery O2 Flow Rate FiO2 05/03/17 15:15 98.7 66 16 105/57 99 Room Air Capillary Refill : Less Than 3 Seconds I&O Intake and Output 05/03/17 00:00 Intake Total 960 ml Balance 960 ml Intake Oral 960 ml # Voids 6 General: Alert, Cooperative, No Acute Distress HEENT: Atraumatic, PERRLA, EOMI, Mucous Memb Moist/[place] Neck: Supple, No JVD Lungs: Clear to Auscultation Heart: Other (irregular) Abdomen: Normal Bowel Sounds, Soft Extremities: No Edema Neuro: Other (RT HP and aphasia) Assessment/Plan Assessment 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 . JESSI JONES MD May 03, 2017 15:27
[2017-05-03] MEDS: SIMvastatin 40 MG (ZOCOR) TAB PO SCH (20:31)
[2017-05-03] MEDS: LATANOPROST 0.005% (XALATAN) OPHTH SOLN 2.5 ML OU SCH (20:34)
[2017-05-04] MEDS: LEVOTHYROXINE 75 MCG (LEVOTHROID) TABLET PO SCH (05:59)
[2017-05-04 06:00] VITALS: BP 120/77
[2017-05-04 07:18] LABS: ANION GAP 11 MMOL/L (5-14); BLOOD UREA NITROGEN 10 MG/DL (7-18); BUN/CREATININE RATIO 14 (0-20); CALCIUM 9.5 MG/DL (8.5-10.1); CARBON DIOXIDE 26 MMOL/L (21-32); CHLORIDE 106 MMOL/L (98-107); CREATININE SERUM 0.71 MG/DL (0.60-1.30); GFR ESTIMATED > 60; GLUCOSE 89 MG/DL (70-105); HEMOLYSIS 13 (-100-29); ICTERUS 0.6 (-100-1.9); LIPEMIA 0 (-100-49); POTASSIUM 3.7 MMOL/L (3.6-5.0); SODIUM 143 MMOL/L (135-145)
--- NOTE | 2017-05-04 08:14 | PM & R (SOAP) Progress Note ---
Subjective Time Seen by Provider: 08:00 Subjective/Events-last exam Patient was seen in her room this AM Patient min assist for transfers .Discussed case with ST Aphasia near baseline Patient appears depressed-will start anti depressant current med reviewed Review of Systems Neurological: Change in speech, Weakness Objective Exam Last Set of Vital Signs Vital Signs Date Time Temp Pulse Resp B/P (MAP) Pulse Ox O2 Delivery O2 Flow Rate FiO2 05/04/17 06:00 98.6 60 16 120/77 96 Room Air Capillary Refill : Less Than 3 Seconds I&O Intake and Output 05/04/17 00:00 Intake Total 1170 ml Balance 1170 ml Intake Oral 1170 ml # Voids 9 General: Alert, Cooperative, No Acute Distress HEENT: Atraumatic, PERRLA, EOMI, Mucous Memb Moist/[place] Neck: Supple, No JVD Lungs: Clear to Auscultation Heart: Other (irregular) Abdomen: Normal Bowel Sounds, Soft Extremities: No Edema Neuro: Other (RT HP and aphasia) Psych/Mental Status: Other (flat affect) Results Lab Laboratory Tests 05/04/17 06:43: Sodium Level 143, Potassium Level 3.7, Chloride Level 106, Carbon Dioxide Level 26, Anion Gap 11, Blood Urea Nitrogen 10, Creatinine 0.71, Estimat Glomerular Filtration Rate > 60, BUN/Creatinine Ratio 14, Glucose Level 89, Calcium Level 9.5 Assessment/Plan Assessment 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 Chronic a FIB controlled with meds OAC with Eliquis currently on hold will f/u re resuming-on hold for another week Hypokalemia-replace HTN controlled RA on methotrexate weekly with post surgical chages to feet and Deformities of both hands Glaucoma on eyedrops Reactive depression Plan Continue PT/OT/ST Appreciate ST Note-Discussed case with ST this AM Replaced K-recheck labs in am F/U with Hospitalist service re resuming Eliquis-done Discussed case with DR Otto last week -Eliquis on hold for 1 more week due to risk of bleed due to multiple infarcts Next Team Conference tommorow 05/05/17 Start Celexa fro depression See orders. . JESSI JONES MD May 04, 2017 08:13
[2017-05-04] MEDS: CYCLOPENTOLATE 1% (CYCLOGYL) 2 ML DROPS OP SCH (08:24)
[2017-05-04] MEDS: TIMOLOL MALEATE 0.5% 5 ML (TIMOPTIC) BTL OU SCH ×2 (08:25→21:36)
[2017-05-04] MEDS: lisINopril 10 MG (PRINIVIL) TAB PO SCH (08:26)
[2017-05-04] MEDS: FOLIC ACID 1 MG TAB PO SCH ×2 (08:26→21:39)
[2017-05-04] MEDS: DIGOXIN 0.125 MG (LANOXIN) TAB PO SCH (08:26)
[2017-05-04] MEDS: GABAPENTIN 300 MG (NEURONTIN) CAP PO SCH ×2 (08:26→21:39)
[2017-05-04] MEDS: ATENOLOL 25 MG (TENORMIN) TAB PO SCH (08:26)
[2017-05-04] MEDS: BRIMONIDINE 0.2% (ALPHAGAN) OPHTH SOLN 5 ML BTL OU SCH ×3 (08:27→21:37)
[2017-05-04] MEDS: prednisoLONE 1% OPTH (PRED FORTE) 5 ML BTL OD SCH ×4 (08:27→21:36)
[2017-05-04] MEDS: ZINC OXIDE 16% OINT (BUTT PASTE) 113 GM TUBE TOP SCH ×2 (08:29→21:40)
[2017-05-04] MEDS: METHOTREXATE 2.5 MG TAB PO SCH (08:38)
--- NOTE | 2017-05-04 08:57 | Occupational Ther Daily Note ---
OT Current Status-Daily Note Subjective Pt sitting in recliner sleeping. Difficult to wake pt up. No c/o pain at this time. Nrsg stated that she had slept hard last night and that this morning she c/o pain and pain meds were given. Pt stated that she had been sitting up in recliner since 0615 and RODNEY came in at 0700. Mental Status/Objective Patient Orientation: Person, Non-Verbal/Aphasic Functional [place] Measure 0=Not Assessed/NA 4=Minimal Assistance 1=Total Assistance 5=Supervision or Setup 2=Maximal Assistance 6=Modified [place] 3=Moderate Assistance 7=Complete [place] ADL-Treatment RODNEY attempted to rouse pt. Pt was able to wash face when given wash clothe. Pt was able to answer questions when awake. RODNEY attempted to keep pt engaged with arm exercises and functional activities for bathing. Pt declined shower and to don clothing at this time. After therapy, pt sitting in recliner with eyes closed. Call light/phone in reach, safety measures in place. Nrsg notified of pt's fatigue. All needs met in room. Functional [place] Measure 0=Not Assessed/NA 4=Minimal Assistance 1=Total Assistance 5=Supervision or Setup 2=Maximal Assistance 6=Modified [place] 3=Moderate Assistance 7=Complete IndependenceIRFPAI Quality Coding Scale 6 Independent with activity with or without an assistive device 5 Patient requires set up or clean up by helper. Patient completes activity by themselves 4 Supervision or touching assist (CGA). [place] provide cues , steadying assist 3 The helper provides less than half the effort to complete the activity 2 The helper provides more than half the effort to complete the activity 1 Dependent. The helper does all the effort to complete an activity 7 Patient refused to complete or attempt activity 9 The patient did not perform the activity before the current illness or injury 88 Not attempted due to Medical conditions or safety concerns OT Short Term Goals Short Term Goals Time Frame: May 07, 2017 Eating(FIM): 5 Grooming(FIM): 4 Bathing(FIM): 4 Upper Body Dressing(FIM): 4 Lower Body Dressing(FIM): 4 Toileting(FIM): 4 Transfers (B,C,W/C) (FIM): 5 Toilet/Commode Transfer(FIM): 4 Additional Short Term Goals: 2-Verbalize Understanding, 3-ImproveStrength/[place] 1=Demonstrate adherence to instructed precautions during ADL tasks. 2=Patient will verbalize/demonstrate understanding of assistive devices/ modifications for ADL. 3=Patient will improve strength/tolerance for activity to enable patient to perform ADL's. OT Halfway Goals Halfway Goals Time Frame: May 21, 2017 Eating (FIM): 6 Eating (QC): 6 Groomin Oral Hygiene (QC): 5 Bathing(FIM): 5 Shower/Bathe Self (QC): 5 Upper Body Dressing(FIM): 5 Upper Body Dressing (QC): 5 Lower Body Dressing(FIM): 5 Lower Body Dressing (QC): 5 On/Off Footwear (QC): 5 Toileting(FIM): 5 Toileting Hygiene (QC): 5 Toilet/Commode Transfer(FIM): 5 Toilet/Commode Transfer (QC): 5 Shower Transfer(FIM): 5 Comprehension(FIM): 2 Expression (FIM): 2 Social Interaction(FIM): 3 Problem Solving(FIM): 3 Memory(FIM): 3 Additional Goals: 2-Verbalize Understanding, 3-ImproveStrength/[place] 1=Demonstrate adherence to instructed precautions during ADL tasks. 2=Patient will verbalize/demonstrate understanding of assistive devices/ modifications for ADL. 3=Patient will improve strength/tolerance for activity to enable patient to perform ADL's. OT Education/Plan Problem List/Assessment Pt would benefit from skilled OT to increase her independence in basic self care skills to allow her to safely return to her home to live with her and to decrease caregiver burden. Discharge Recommendations Plan/Recommendations: Continue POC Treatment Plan/Plan of Care Patient would benefit from OT for education, treatment and training to promote independence in ADL's, mobility, safety and/or upper extremity function for ADL' s. Plan of Care: ADL Retraining, Functional Mobility, Group Exercise/Act as Ind ( education, exercise, funct activity, communication, socialization), UE Funct Exercise/Act, UE Neuromus Re-Ed/Coord Treatment Duration: May 21, 2017 Visits Per Week: 10-11 Minutes/Day (M-F): 75-90 Minutes/Day (Sat/Anders): PRN Agreement: Yes Rehab Potential: Guarded (prior CVA) Time/GCodes Start Time: 07:00 Stop Time: 08:00 Total Time Billed (hr/min): 30 Billed Treatment Time 1 visit-FA 2 (30 min) HUSSEIN PERDOMO May 04, 2017 08:57
--- NOTE | 2017-05-04 10:36 | Physical Therapy Daily Note ---
PT Daily Note-Current Subjective Pt sitting in recliner but needing to use restroom upon arrival. Pt agrees to PT. Mental Status Patient Orientation: Non-Verbal/Aphasic Transfers Functional [place] Measure 0=Not Assessed/NA 4=Minimal Assistance 1=Total Assistance 5=Supervision or Setup 2=Maximal Assistance 6=Modified [place] 3=Moderate Assistance 7=Complete IndependenceIRFPAI Quality Coding Scale 6 Independent with activity with or without an assistive device 5 Patient requires set up or clean up by helper. Patient completes activity by themselves 4 Supervision or touching assist ([facility]). [place] provide cues , steadying assist 3 The helper provides less than half the effort to complete the activity 2 The helper provides more than half the effort to complete the activity 1 Dependent. The helper does all the effort to complete an activity 7 Patient refused to complete or attempt activity 9 The patient did not perform the activity before the current illness or injury 88 Not attempted due to Medical conditions or safety concerns Scootin Sit to/from Stand: 4 Sit to Stand (QC): 4 Weight Bearing Weight Bearing Restriction: Full Weight Bearing Location Restriction: LE Bilateral Gait Training Does the Patient Walk?: Yes Distance (FIM): 3=150 ft Distance: 150' Walk 10 feet (QC): 4 Walk 50 ft with 2 Turns(QC): 4 Walk 150 ft (QC): 4 Gait Level of Assist: 4 Gait Persons Needed: 1 Gait Assistive Device: FWW Pt shuffles R foot during ambulation especially at end of tx due to fatigue. Pt 's shahzad is slow and has a couple of LOB but able to self correct. Pt gets confused and needs VC for tasks due to CVA. Wheelchair Training Does the Pt Use a Wheelchair?: No Exercises Seated Therapy Exercises: Ankle pumps, Long arc quads, Hip flexion, Kicking activity Treatments Pt transfers from recliner using FWW at [facility]-Min A. Pt uses restroom before leaving for tx. Pt needs Min A for standing during toilet for jose rafael care. Pt ambulates in hallway using FWW at [facility]. Pt needs VC to stay close to FWW. Pt completes Seated Ex in chair before returning to room to rest in recliner at end of tx with all needs met. Assessment Current Status: Fair Progress Pt has cognitive deficits of sequencing and problem solving as well as safety due to CVA. Pt fatigues easy and needs rest breaks during tx. PT Short Term Goals Short Term Goals Time Frame: May 12, 2017 Transfers (B,C,W/C) (FIM): 5 Gait (FIM): 5 PT Longterm Goals Certification Officer Goals PT Certification Officer Goals Time Frame: May 26, 2017 Transfers (B,C,W/C) (FIM): 6 Sit to Lying (QC): 6 Lying-Sitting on Side/Bed(QC): 6 Sit to Stand (QC): 6 Rollin Roll Left to Right (QC): 6 Chair/Jxq-ap-Ziebq Xfer(QC): 6 Car Transfer (QC): 5 Does the Patient Walk: Yes Gait (FIM): 6 Gait distance (FIM): 3=150 ft Walk 10 feet (QC): 6 Walk 10ft-Uneven Surface(QC): 6 Walk 50ft with 2 Turns (QC): 6 Walk 150 ft (QC): 6 Gait Level of Assist: 6 Gait Assistive Device: FWW Does the Pt use WC or Scooter?: No Stairs (FIM): 5 # of Steps: 8 1 Step (curb) (QC): 5 4 Steps (QC): 5 12 Steps (QC): 88 Picking up an Object (QC): 5 PT Plan Problem List Problem List: Activity Tolerance, Functional Strength, Safety, Balance, Gait, Transfer Treatment/Plan Treatment Plan: Continue Plan of Care Treatment Plan: Bed Mobility, Education, Functional Activity [place], Functional Strength, Group Therapy, Gait, Safety, Therapeutic Exercise, Transfers Treatment Duration: May 26, 2017 Visits Per Week: 10-15 Minutes/Day (M-F): 75-90 Minutes/Day (Sat/Anders): prn Safety Risks/Education Patient Education: Gait Training, Transfer Techniques, Correct Positioning, Safety Issues Teaching Recipient: Patient Teaching Methods: Discussion Response to Teaching: Verbalize Understanding Time/GCodes Time In: 930 Time Out: 1015 Total Billed Treatment Time: 45 Total Billed Treatment visit, GT (15m), FA (15m) & EX (15m) JESSICA VIRGEN PTA May 04, 2017 10:36
--- NOTE | 2017-05-04 11:38 | Speech Therapy Daily Note ---
Speech Daily Progress Note Subjective Date Seen by Provider: May 04, 2017 Time Seen by Provider: 09:00 The patient was seated upright in recliner upon entrance. The patient greeted the clinician with a smile, head nod, and eye contact. The patient was agreeable to participation in the cognitive treatment session. Objective In attempts to aid the patient is increasing her knowledge of therapy times throughout the day, the clinician introduced clock work on this date. The patient was provided a blank [place] and asked to transcribe the numbers of a clock on the [place]. The patient initially attempted to use pen, however, la a spiral-type shape on the paper. The patient was cued with the number 12, 3, 6 , and 9 in the accurate spot. Regardless of maximum clinician cueing, the patient was unable to record the numbers. The accurate numbers were placed by the clinician and the clinician requested the patient transcribe the time, "9: 00." The patient was unable to do this following direct modeling. Additionally, the patient was unable to state the accurate time regardless of repetition attempts. - Yes and No: The patient was asked to identify "yes" and "no" on a sheet of paper. The patient inconsistently identified these words, as well as, inconsistently demonstrated accuracy with yes and no simple orientation questions on this date. For the third attempt, the patient refused to consume water for the clinician. Per RN, the patient has not demonstrated difficulty with medication while administered with water. Assessment Assessment Current Status: Poor Progress Treatment Plan Continue Plan of Care Communication Comprehension: 1 Expression: 1 Social Cognition Social Interaction: 2 Problem Solvin Memory: 1 Speech Short Term Goals Short Term Goals Short Term Goals 1. The patient will identify items included in ADL activities with 80% accuracy in a field of two. 2. The patient will demonstrate accurate use of ADL items with 80% accuracy and mild clinician cueing. 3. The patient will follow one-step commands with 80% accuracy. Time Frame-STG: Two Weeks Speech Grid Maker Goals Grid Maker Goals The patient will demonstrate improvement with expressive and receptive language to increase functional communication in the least restrictive setting. Time Frame: Three Weeks Comprehension: 2 Expression: 2 Social Interaction: 3 Problem Solvin Memory: 3 Speech-Plan Treatment Plan Speech Therapy Treatment Plan: Continue Plan of Care Continue skilled speech pathology to target functional expressive and expressive communication. Treatment Duration: Apr 29, 2017 # of days/week Five. Visits Per Week: Five. Minutes/Day (M-F): 30 Rehab Potential: Guarded (prior CVA) Safety Risks/Education Teaching Recipient: Patient Teaching Methods: Discussion Response to Teaching: Reinforcement Needed Education Topics Provided: Yes and No Questions/Reading Time Speech Therapy Time In: 09:00 Speech Therapy Time Out: 09:30 Total Billed Time: 30 Billed Treatment Time 1, MATTHIEU BRAVO May 04, 2017 11:38
--- NOTE | 2017-05-04 12:30 | Occupational Ther Daily Note ---
OT Current Status-Daily Note Subjective Pt alert, sitting in recliner. Pt agreed to therapy. No c/o pain at this time. Mental Status/Objective Patient Orientation: Person, Place, Non-Verbal/Aphasic, Situation Functional [place] Measure 0=Not Assessed/NA 4=Minimal Assistance 1=Total Assistance 5=Supervision or Setup 2=Maximal Assistance 6=Modified [place] 3=Moderate Assistance 7=Complete [place] ADL-Treatment Functional [place] Measure 0=Not Assessed/NA 4=Minimal Assistance 1=Total Assistance 5=Supervision or Setup 2=Maximal Assistance 6=Modified [place] 3=Moderate Assistance 7=Complete IndependenceIRFPAI Quality Coding Scale 6 Independent with activity with or without an assistive device 5 Patient requires set up or clean up by helper. Patient completes activity by themselves 4 Supervision or touching assist (CGA). [place] provide cues , steadying assist 3 The helper provides less than half the effort to complete the activity 2 The helper provides more than half the effort to complete the activity 1 Dependent. The helper does all the effort to complete an activity 7 Patient refused to complete or attempt activity 9 The patient did not perform the activity before the current illness or injury 88 Not attempted due to Medical conditions or safety concerns Other Treatment Pt was able to choose from choice of two and problem solve which one was an arrow down. Pt then was able to assist is holding doors open and direct which way to go to a specified destination. When back in room pt looked at what was delivered for lunch and made it known she did not like what was brought. With 2 choices for each (drink, dessert, main dish, side dish) pt was able to determine what she wanted and made it known. Pt was able to use spoon to scoop yogurt out of bowl then used only fingers to eat peaches. Pt attempted to open packages and was not able to open. Pt continues to demonstrate R side neglect during treatments, though when directed to look toward R side pt is able to complete. After therapy, pt sitting in recliner with call light/phone in reach. All needs met in room. Safety measures in place. OT Short Term Goals Short Term Goals Time Frame: May 07, 2017 Eating(FIM): 5 Grooming(FIM): 4 Bathing(FIM): 4 Upper Body Dressing(FIM): 4 Lower Body Dressing(FIM): 4 Toileting(FIM): 4 Transfers (B,C,W/C) (FIM): 5 Toilet/Commode Transfer(FIM): 4 Additional Short Term Goals: 2-Verbalize Understanding, 3-ImproveStrength/[place] 1=Demonstrate adherence to instructed precautions during ADL tasks. 2=Patient will verbalize/demonstrate understanding of assistive devices/ modifications for ADL. 3=Patient will improve strength/tolerance for activity to enable patient to perform ADL's. OT Tobacco Flavorer Goals Retirement Goals Time Frame: May 21, 2017 Eating (FIM): 6 Eating (QC): 6 Groomin Oral Hygiene (QC): 5 Bathing(FIM): 5 Shower/Bathe Self (QC): 5 Upper Body Dressing(FIM): 5 Upper Body Dressing (QC): 5 Lower Body Dressing(FIM): 5 Lower Body Dressing (QC): 5 On/Off Footwear (QC): 5 Toileting(FIM): 5 Toileting Hygiene (QC): 5 Toilet/Commode Transfer(FIM): 5 Toilet/Commode Transfer (QC): 5 Shower Transfer(FIM): 5 Comprehension(FIM): 2 Expression (FIM): 2 Social Interaction(FIM): 3 Problem Solving(FIM): 3 Memory(FIM): 3 Additional Goals: 2-Verbalize Understanding, 3-ImproveStrength/[place] 1=Demonstrate adherence to instructed precautions during ADL tasks. 2=Patient will verbalize/demonstrate understanding of assistive devices/ modifications for ADL. 3=Patient will improve strength/tolerance for activity to enable patient to perform ADL's. OT Education/Plan Problem List/Assessment Pt would benefit from skilled OT to increase her independence in basic self care skills to allow her to safely return to her home to live with her and to decrease caregiver burden. Discharge Recommendations Plan/Recommendations: Continue POC Treatment Plan/Plan of Care Patient would benefit from OT for education, treatment and training to promote independence in ADL's, mobility, safety and/or upper extremity function for ADL' s. Plan of Care: ADL Retraining, Functional Mobility, Group Exercise/Act as Ind ( education, exercise, funct activity, communication, socialization), UE Funct Exercise/Act, UE Neuromus Re-Ed/Coord Treatment Duration: May 21, 2017 Visits Per Week: 10-11 Minutes/Day (M-F): 75-90 Minutes/Day (Sat/Anders): PRN Agreement: Yes Rehab Potential: Guarded (prior CVA) Time/GCodes Start Time: 11:00 Stop Time: 12:00 Total Time Billed (hr/min): 60 Billed Treatment Time 1 visit-FA 4 (60 min) HUSSEIN PERDOMO May 04, 2017 12:30
--- NOTE | 2017-05-04 14:56 | Physical Therapy Daily Note ---
PT Daily Note-Current Subjective Pt sitting in recliner with Sp upon arrival. Pt agrees to PT. Mental Status Patient Orientation: Non-Verbal/Aphasic Transfers Functional [place] Measure 0=Not Assessed/NA 4=Minimal Assistance 1=Total Assistance 5=Supervision or Setup 2=Maximal Assistance 6=Modified [place] 3=Moderate Assistance 7=Complete IndependenceIRFPAI Quality Coding Scale 6 Independent with activity with or without an assistive device 5 Patient requires set up or clean up by helper. Patient completes activity by themselves 4 Supervision or touching assist (CGA). [place] provide cues , steadying assist 3 The helper provides less than half the effort to complete the activity 2 The helper provides more than half the effort to complete the activity 1 Dependent. The helper does all the effort to complete an activity 7 Patient refused to complete or attempt activity 9 The patient did not perform the activity before the current illness or injury 88 Not attempted due to Medical conditions or safety concerns Scootin Sit to/from Stand: 4 Sit to Stand (QC): 4 Weight Bearing Weight Bearing Restriction: Full Weight Bearing Location Restriction: LE Bilateral Gait Training Does the Patient Walk?: Yes Distance (FIM): 3=150 ft Distance: 150' Walk 10 feet (QC): 5 Walk 50 ft with 2 Turns(QC): 5 Walk 150 ft (QC): 5 Gait Level of Assist: 5 Gait Persons Needed: 1 Gait Assistive Device: FWW Pt walks with a shuffle especially on RLE when fatigued. Pt fatigues easy and needs rest breaks. Wheelchair Training Does the Pt Use a Wheelchair?: No Exercises Seated Therapy Exercises: Ankle pumps, Long arc quads, Hip flexion, Kicking activity Seated Reps: 15 Treatments Pt transfers from recliner using FWW at Min A. Pt ambulates using FWW at [facility]. Pt completes Seated Ex in chair. Pt returns to room to use restroom before sitting in recliner to rest at end of tx with all needs met. Assessment Current Status: Fair Progress Pt has difficulty communicating/aphasic and occasionally get frustrated. Pt fatigues easy and needs rest breaks. 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 [employer] Goals Care Home Goals PT Care Home Goals Time Frame: May 26, 2017 Transfers (B,C,W/C) (FIM): 6 Sit to Lying (QC): 6 Lying-Sitting on Side/Bed(QC): 6 Sit to Stand (QC): 6 Rollin Roll Left to Right (QC): 6 Chair/Ckq-we-Jchxm Xfer(QC): 6 Car Transfer (QC): 5 Does the Patient Walk: Yes Gait (FIM): 6 Gait distance (FIM): 3=150 ft Walk 10 feet (QC): 6 Walk 10ft-Uneven Surface(QC): 6 Walk 50ft with 2 Turns (QC): 6 Walk 150 ft (QC): 6 Gait Level of Assist: 6 Gait Assistive Device: FWW Does the Pt use WC or Scooter?: No Stairs (FIM): 5 # of Steps: 8 1 Step (curb) (QC): 5 4 Steps (QC): 5 12 Steps (QC): 88 Picking up an Object (QC): 5 PT Plan Problem List Problem List: Activity Tolerance, Functional Strength, Safety, Balance, Gait, Transfer Treatment/Plan Treatment Plan: Continue Plan of Care Treatment Plan: Bed Mobility, Education, Functional Activity [place], Functional Strength, Group Therapy, Gait, Safety, Therapeutic Exercise, Transfers Treatment Duration: May 26, 2017 Visits Per Week: 10-15 Minutes/Day (M-F): 75-90 Minutes/Day (Sat/Anders): prn Safety Risks/Education Patient Education: Gait Training, Transfer Techniques, Correct Positioning, Safety Issues Teaching Recipient: Patient, Significant Other Teaching Methods: Discussion Response to Teaching: Reinforcement Needed Time/GCodes Time In: 1250 Time Out: 1330 Total Billed Treatment Time: 40 Total Billed Treatment visit, FA (15m), GT (15m) & EX (10m) JESSICA VIRGEN FORMS ANALYST May 04, 2017 14:56
--- OUTSIDE RECORDS SUMMARY | 2017-05-04 17:05 | XMS REPORT | Continuity of Care Document ---
Author Author [facility] Organization [facility] Address Unknown Phone Unavailable Allergies Active Description Code Type Severity Reaction Onset Reported/Identified Relationship to Patient Clinical Status Yes iodine [id number] Drug Allergy Unknown N/A 10/12/2015 Yes lidocaine [id number] Drug Allergy Unknown N/A 10/12/2015 Medications Problems [...] SCOTT APRN Ot Y92.[address] IN [facility] NON-INSTITUT ( PRIVATE 10/12/2015 XAVIER SCOTT APRN Ot Y99.8 OTHER EXTERNAL CAUSE STATUS 02/12/2017 CITLALI PARHAM, ROSANGELA Ot 780.4 DIZZINESS AND GIDDINESS 02/12/2017 CITLALI PARHAM, ROSANGELA Ot 780.4 DIZZINESS AND GIDDINESS 02/12/2017 CITLALI PARHAM, ROSANGELA Ot 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 02/12/2017 BRIGGS DO, CECILLE [...] I48.2 CHRONIC ATRIAL FIBRILLATION 02/15/2017 CHESTER DO CCEILLE Ot I63.411 CEREB INFRC DUE TO EMBOLISM [...] Ot E03.9 HYPOTHYROIDISM, UNSPECIFIED 02/23/2017 KAREN PARHAM JESIS E Ot E87.6 HYPOKALEMIA 02/23/2017 KAREN PARHAM JESSI E Ot I10 ESSENTIAL (PRIMARY) HYPERTENSION 02/23/2017 RADHA JONES MDIC E Ot I48.1 PERSISTENT ATRIAL FIBRILLATION 02/23/2017 EJSSI JONES MD E Ot I48.2 CHRONIC ATRIAL [...] urine sediment by light microscopy LARGE NRG Complete blood count (CBC) with automated white blood cell (WBC) differential - 04/29/17 05:02 Blood leukocytes automated count (number/volume) 4.9 10*3/ uL 4.3-11.0 Blood erythrocytes automated count (number/volume) 4.03 10*6 /uL 4.35-5.85 Venous blood hemoglobin measurement (mass/volume) 12.6 g/dL 11.5-16.0 Blood hematocrit (volume fraction) 39 % 35-52 Automated erythrocyte mean corpuscular volume 96 [foz_us] 80-99 Automated erythrocyte mean corpuscular hemoglobin (mass per erythrocyte) 31 pg 25-34 Automated erythrocyte mean corpuscular hemoglobin concentration measurement ( mass/volume) 33 g/dL 32-36 Automated erythrocyte distribution width ratio 15.0 % 10.0-14.5 Automated blood platelet count (count/volume) 195 10*3/uL 130-400 Automated blood platelet mean volume measurement 10.1 [foz_ us] 7.4-10.4 Automated blood neutrophils/100 leukocytes 50 % 42-75 Automated blood lymphocytes/100 leukocytes 36 % 12-44 Blood monocytes/100 leukocytes 9 % 0-12 Automated blood eosinophils/100 leukocytes 4 % 0-10 Automated blood basophils/100 leukocytes 1 % 0-10 Blood neutrophils automated count (number/volume) 2.4 10*3 1.8-7.8 Blood lymphocytes automated count (number/volume) 1.8 10*3 1.0-4.0 Blood monocytes automated count (number/volume) 0.4 10*3 0.0-1.0 Automated eosinophil count 0.2 10*3/uL 0.0-0.3 Automated blood basophil count (count/volume) 0.0 10*3/uL 0.0-0.1 Comprehensive metabolic panel - 04/29/17 05:02 Serum or plasma sodium measurement (moles/volume) 143 mmol/ L 135-145 Serum or plasma potassium measurement (moles/volume) 3.5 mmol/L 3.6-5.0 Serum or plasma chloride measurement (moles/volume) 105 mmol /L 98-107 Carbon dioxide 26 mmol/L 21-32 Serum or plasma anion gap determination (moles/volume) 12 mmol/L 5-14 Serum or plasma urea nitrogen measurement (mass/volume) 10 mg/dL 7-18 Serum or plasma creatinine measurement (mass/volume) 0.61 mg /dL 0.60-1.30 Serum or plasma urea nitrogen/creatinine mass ratio 16 0-20 Serum or plasma creatinine measurement with calculation of estimated glomerular filtration rate > NRG Serum or plasma glucose measurement (mass/volume) 85 mg/dL 70-105 Serum or plasma calcium measurement (mass/volume) 9.0 mg/dL 8.5-10.1 Serum or plasma total bilirubin measurement (mass/volume) 0.5 mg/dL 0.1-1.0 Serum or plasma alkaline phosphatase measurement (enzymatic activity/volume) 48 U/L 40-136 Serum or plasma aspartate aminotransferase measurement (enzymatic activity/ volume) 15 U/L 5-34 Serum or plasma alanine aminotransferase measurement (enzymatic activity/volume ) 13 U/L 0-55 Serum or plasma protein measurement (mass/volume) 5.4 g/dL 6.4-8.2 Serum or plasma albumin measurement (mass/volume) 3.4 g/dL 3.2-4.5 Whole blood basic metabolic panel - 05/04/17 06:43 Serum or plasma sodium measurement (moles/volume) 143 mmol/ L 135-145 Serum or plasma potassium measurement (moles/volume) 3.7 mmol/L 3.6-5.0 Serum or plasma chloride measurement (moles/volume) 106 mmol /L 98-107 Carbon dioxide 26 mmol/L 21-32 Serum or plasma anion gap determination (moles/volume) 11 mmol/L 5-14 Serum or plasma urea nitrogen measurement (mass/volume) 10 mg/dL 7-18 Serum or plasma creatinine measurement (mass/volume) 0.71 mg /dL 0.60-1.30 Serum or plasma urea nitrogen/creatinine mass ratio 14 0-20 Serum or plasma creatinine measurement with calculation of estimated glomerular filtration rate > NRG Serum or plasma glucose measurement (mass/volume) 89 mg/dL 70-105 Serum or plasma calcium measurement (mass/volume) 9.5 mg/dL 8.5-10.1 Encounters ACCT No. Visit Date/Time Discharge Status Pt. Type Provider Facility Loc./Unit Complaint [id number] 02/15/2017 12:45:00 2016 13:45:00 DIS Outpatient JESSI JONES MD [facility] CVA [id number] 02/12/2017 09:40:00 2016 13:00:00 DIS Inpatient CECILLE BRIGGS DO [facility] 4TH STROKE [id number] 10/12/2015 16:36:00 2014 18:55:00 DIS Emergency XAVIER SCOTT APRN [facility] ER CHIN LACERATION [id number] 03/07/2015 15:02:00 2014 23:59:59 CLS Outpatient ROSANGELA GODWIN MD [facility] RAD DIZZINESS [id number] 03/01/2015 13:31:00 2014 23:59:59 CLS Outpatient ROSANGELA GODWIN MD [facility] RAD DIZZINESS [id number] 04/28/2017 13:23:00 ACT Inpatient JESSI JONES MD [facility] CVA
--- OUTSIDE RECORDS SUMMARY | 2017-05-04 17:05 | XMS REPORT | Continuity of Care Document ---
Author Author [facility] Organization [facility] Address Unknown Phone Unavailable Care Team Providers Care Poultry Barn Manager Name Role Phone Jayne Vasquez PCP [phone] Source Comments Some departments are not documenting in the electronic medical record. If you do not see the information that you expected, contact Release of Information in the Health Information Management department at [phone] for further assistance in locating additional records.[facility] Active Allergies and Adverse Reactions Allergen Noted [...]
[2017-05-04 17:53] VITALS: BP 122/69
[2017-05-04] MEDS: LATANOPROST 0.005% (XALATAN) OPHTH SOLN 2.5 ML OU SCH (21:38)
[2017-05-04] MEDS: SIMvastatin 40 MG (ZOCOR) TAB PO SCH (21:39)
[2017-05-04] MEDS: ACETAMINOPHEN 500 MG TAB (TYLENOL) PO PRN (21:40)
[2017-05-05 05:45] VITALS: BP 135/67
[2017-05-05] MEDS: LEVOTHYROXINE 75 MCG (LEVOTHROID) TABLET PO SCH (06:56)
--- NOTE | 2017-05-05 07:15 | PM & R (SOAP) Progress Note ---
Subjective Time Seen by Provider: 06:55 Subjective/Events-last exam Patient was seen in her room this AM Patient min assist for transfers. Objective Exam Last Set of Vital Signs Vital Signs Date Time Temp Pulse Resp B/P (MAP) Pulse Ox O2 Delivery O2 Flow Rate FiO2 05/05/17 05:45 99.1 68 18 135/67 96 Room Air Capillary Refill : Less Than 3 Seconds I&O Intake and Output 05/05/17 00:00 Intake Total 1150 ml Balance 1150 ml Intake Oral 1150 ml # Voids 7 # Bowel Movements 1 General: Alert, Cooperative, No Acute Distress HEENT: Atraumatic, PERRLA, EOMI, Mucous Memb Moist/[place] Neck: Supple, No JVD Lungs: Clear to Auscultation Heart: Other (irregular) Abdomen: Normal Bowel Sounds, Soft Extremities: No Edema Neuro: Other (RT HP and aphasia) Psych/Mental Status: Other (flat affect) Results Lab Laboratory Tests 05/04/17 06:43: Sodium Level 143, Potassium Level 3.7, Chloride Level 106, Carbon Dioxide Level 26, Anion Gap 11, Blood Urea Nitrogen 10, Creatinine 0.71, Estimat Glomerular Filtration Rate > 60, BUN/Creatinine Ratio 14, Glucose Level 89, Calcium Level 9.5 Assessment/Plan Assessment 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 Chronic a FIB controlled with meds OAC with Eliquis currently on hold will f/u re resuming-on hold for another week Hypokalemia-replace HTN controlled RA on methotrexate weekly with post surgical chages to feet and Deformities of both hands Glaucoma on eyedrops Reactive depression Plan Continue PT/OT/ST Appreciate ST Note-Discussed case with ST this AM Replaced K-recheck labs in am F/U with Hospitalist service re resuming Eliquis-done Discussed case with DR Otto last week -Eliquis on hold for 1 more week due to risk of bleed due to multiple infarcts Next Team Conference later today 05/05/17 See report for full functional update and POC and ELOS Started Celexa fro depression Monitor for improvement in mood . JESSI JONES MD May 05, 2017 07:15
--- NOTE | 2017-05-05 07:55 | Occupational Ther Daily Note ---
OT Current Status-Daily Note Subjective Pt lying in bed, woke to name. Pt would rub her face then look at RODNEY and shake her head. Pt unmotivated to move around today. Pt did agree to therapy. Pt did make known she didn't feel well. Took BP (153/99 then 150/74,5 min later ). Reported to nrsg. Mental Status/Objective Patient Orientation: Person, Place, Non-Verbal/Aphasic, Situation Functional [place] Measure 0=Not Assessed/NA 4=Minimal Assistance 1=Total Assistance 5=Supervision or Setup 2=Maximal Assistance 6=Modified [place] 3=Moderate Assistance 7=Complete [place] ADL-Treatment Pt declined taking shower today. Pt did agree to sponge bathe. Pt requires min A to CGA to go from sit to stand and back, position hands on the FWW to pull up and to sit down. When pt is directed to position hands to push up from surface or reach back cues are needed to remind pt to place R hand back on FWW. Pt required more assistance today with bathing buttocks then dressing lower body clothing. Pt unable to don over feet then assist to hike pants over hips, LOB while attempting. Pt then sat in w/c at sink to brush teeth. Pt refused to use toothpaste, but did brush on own. Pt transferred from w/c to recliner with min A. Set up for eating breakfast. Pt used fingers to eat some of the eggs and sliced banana. Pt was more interested in drinking coffee, milk and juice than eating her food. Pt then requested to use bathroom again. Pt ambulated to bathroom with CGA using FWW. Pt was able to pull pants down. Assist for hygiene and hiking pants over hips. Refused to wash hands. Pt sat back down in recliner and RODNEY took BP then reported to nrsg. Pt took increased time to complete all tasks. After therapy, pt sitting in recliner with call light/ phone in reach. All needs met in room. Safety measures in place. Functional [place] Measure 0=Not Assessed/NA 4=Minimal Assistance 1=Total Assistance 5=Supervision or Setup 2=Maximal Assistance 6=Modified [place] 3=Moderate Assistance 7=Complete IndependenceIRFPAI Quality Coding Scale 6 Independent with activity with or without an assistive device 5 Patient requires set up or clean up by helper. Patient completes activity by themselves 4 Supervision or touching assist (CGA). [place] provide cues , steadying assist 3 The helper provides less than half the effort to complete the activity 2 The helper provides more than half the effort to complete the activity 1 Dependent. The helper does all the effort to complete an activity 7 Patient refused to complete or attempt activity 9 The patient did not perform the activity before the current illness or injury 88 Not attempted due to Medical conditions or safety concerns Eating (FIM): 5 Grooming (FIM): 5 Bathing (FIM): 3 Bathing Location: L Arm, R Arm, L Upper Leg, R Upper Leg, Chest, Abdomen Upper Body (FIM): 5 Lower Body Dressing (FIM): 2 Toileting (FIM): 3 Transfers (B, C, W/C) (FIM): 4 Toilet/Commode Transfer (FIM): 4 OT Short Term Goals Short Term Goals Time Frame: May 07, 2017 Eating(FIM): 5 Grooming(FIM): 4 Bathing(FIM): 4 Upper Body Dressing(FIM): 4 Lower Body Dressing(FIM): 4 Toileting(FIM): 4 Transfers (B,C,W/C) (FIM): 5 Toilet/Commode Transfer(FIM): 4 Additional Short Term Goals: 2-Verbalize Understanding, 3-ImproveStrength/[place] 1=Demonstrate adherence to instructed precautions during ADL tasks. 2=Patient will verbalize/demonstrate understanding of assistive devices/ modifications for ADL. 3=Patient will improve strength/tolerance for activity to enable patient to perform ADL's. OT Airport Operations Duty Manager Goals Airport Operations Duty Manager Goals Time Frame: May 21, 2017 Eating (FIM): 6 Eating (QC): 6 Groomin Oral Hygiene (QC): 5 Bathing(FIM): 5 Shower/Bathe Self (QC): 5 Upper Body Dressing(FIM): 5 Upper Body Dressing (QC): 5 Lower Body Dressing(FIM): 5 Lower Body Dressing (QC): 5 On/Off Footwear (QC): 5 Toileting(FIM): 5 Toileting Hygiene (QC): 5 Toilet/Commode Transfer(FIM): 5 Toilet/Commode Transfer (QC): 5 Shower Transfer(FIM): 5 Comprehension(FIM): 2 Expression (FIM): 2 Social Interaction(FIM): 3 Problem Solving(FIM): 3 Memory(FIM): 3 Additional Goals: 2-Verbalize Understanding, 3-ImproveStrength/[place] 1=Demonstrate adherence to instructed precautions during ADL tasks. 2=Patient will verbalize/demonstrate understanding of assistive devices/ modifications for ADL. 3=Patient will improve strength/tolerance for activity to enable patient to perform ADL's. OT Education/Plan Problem List/Assessment Pt would benefit from skilled OT to increase her independence in basic self care skills to allow her to safely return to her home to live with her and to decrease caregiver burden. Discharge Recommendations Plan/Recommendations: Continue POC Treatment Plan/Plan of Care Patient would benefit from OT for education, treatment and training to promote independence in ADL's, mobility, safety and/or upper extremity function for ADL' s. Plan of Care: ADL Retraining, Functional Mobility, Group Exercise/Act as Ind ( education, exercise, funct activity, communication, socialization), UE Funct Exercise/Act, UE Neuromus Re-Ed/Coord Treatment Duration: May 21, 2017 Visits Per Week: 10-11 Minutes/Day (M-F): 75-90 Minutes/Day (Sat/Anders): PRN Agreement: Yes Rehab Potential: Guarded (prior CVA) Time/GCodes Start Time: 07:00 Stop Time: 08:15 Total Time Billed (hr/min): 75 Billed Treatment Time 1 visit-ADL 5 (75 min) HUSSEIN PERDOMO May 05, 2017 07:55
[2017-05-05] MEDS: prednisoLONE 1% OPTH (PRED FORTE) 5 ML BTL OD SCH ×4 (08:09→20:51)
[2017-05-05] MEDS: BRIMONIDINE 0.2% (ALPHAGAN) OPHTH SOLN 5 ML BTL OU SCH ×3 (08:10→20:50)
[2017-05-05] MEDS: TIMOLOL MALEATE 0.5% 5 ML (TIMOPTIC) BTL OU SCH ×2 (08:10→20:50)
[2017-05-05] MEDS: CYCLOPENTOLATE 1% (CYCLOGYL) 2 ML DROPS OP SCH (08:11)
[2017-05-05] MEDS: ATENOLOL 25 MG (TENORMIN) TAB PO SCH (08:12)
[2017-05-05] MEDS: FOLIC ACID 1 MG TAB PO SCH ×2 (08:12→20:50)
[2017-05-05] MEDS: lisINopril 10 MG (PRINIVIL) TAB PO SCH (08:12)
[2017-05-05] MEDS: GABAPENTIN 300 MG (NEURONTIN) CAP PO SCH ×2 (08:12→20:50)
[2017-05-05] MEDS: DIGOXIN 0.125 MG (LANOXIN) TAB PO SCH (08:12)
[2017-05-05] MEDS: ZINC OXIDE 16% OINT (BUTT PASTE) 113 GM TUBE TOP SCH ×2 (08:13→20:53)
--- NOTE | 2017-05-05 10:08 | Physical Therapy Daily Note ---
PT Daily Note-Current Subjective Pt indicates that she does not feel well. Sighs. Rubs her face. Furrowed brow. Shakes her head "no" when asked if she has pain. Pain Numeric Pain Scale: 0-No Pain Location: No Pain Reported Transfers Functional [place] Measure 0=Not Assessed/NA 4=Minimal Assistance 1=Total Assistance 5=Supervision or Setup 2=Maximal Assistance 6=Modified [place] 3=Moderate Assistance 7=Complete IndependenceIRFPAI Quality Coding Scale 6 Independent with activity with or without an assistive device 5 Patient requires set up or clean up by helper. Patient completes activity by themselves 4 Supervision or touching assist (CGA). [place] provide cues , steadying assist 3 The helper provides less than half the effort to complete the activity 2 The helper provides more than half the effort to complete the activity 1 Dependent. The helper does all the effort to complete an activity 7 Patient refused to complete or attempt activity 9 The patient did not perform the activity before the current illness or injury 88 Not attempted due to Medical conditions or safety concerns Transfers (B, C, W/C) (FIM): 4 Supine to/from Sit: 4 (asssit with right leg) Sit to/from Stand: 4 (CGA for safety) Multiple sit to stand transfers during treatment. Pt in bed post treatment so worked on bed mobility and positioning/rolling in bed. Gait Training Does the Patient Walk?: Yes Gait (FIM): 2 Distance (FIM): 8=524-39 ft Distance: 100 ft x 4 Gait Assistive Device: FWW Slow gait with decreased step length, decreased foot clearance and 50% of the time the left foot does not pass the right foot. Able to correct with cues but needs cues 50% of the time. Exercises Seated Therapy Exercises: Ankle pumps, Sit to stand, Long arc quads, Hip flexion, Hip abd/add Seated Reps: 12 (To promote LE strength for improved functional transfers and gait. ) LE exercises performed slowly and at times pt does not move through full range, corrects with cuing. Needs cues to stay on task Treatments BP taken: 132/81 and oxygen sat 94% Assessment Pt does not appear to feel well. Seems tired, rubs her face, sighs, etc. Appears lethargic as she performs exercises and gait and needs frequent cues to participate and to stay on task. Vitals in normal range. PT Short Term Goals Short Term Goals Time Frame: May 12, 2017 Transfers (B,C,W/C) (FIM): 5 Gait (FIM): 5 PT Power And Recovery Superintendent Goals [facility] Goals PT [facility] Goals Time Frame: May 26, 2017 Transfers (B,C,W/C) (FIM): 6 Sit to Lying (QC): 6 Lying-Sitting on Side/Bed(QC): 6 Sit to Stand (QC): 6 Rollin Roll Left to Right (QC): 6 Chair/Aac-dj-Gvmde Xfer(QC): 6 Car Transfer (QC): 5 Does the Patient Walk: Yes Gait (FIM): 6 Gait distance (FIM): 3=150 ft Walk 10 feet (QC): 6 Walk 10ft-Uneven Surface(QC): 6 Walk 50ft with 2 Turns (QC): 6 Walk 150 ft (QC): 6 Gait Level of Assist: 6 Gait Assistive Device: FWW Does the Pt use WC or Scooter?: No Stairs (FIM): 5 # of Steps: 8 1 Step (curb) (QC): 5 4 Steps (QC): 5 12 Steps (QC): 88 Picking up an Object (QC): 5 PT Plan Problem List Problem List: Activity Tolerance, Functional Strength, Safety, Balance, Gait, Transfer, Bed Mobility Treatment/Plan Treatment Plan: Continue Plan of Care Treatment Plan: Bed Mobility, Education, Functional Activity [place], Functional Strength, Group Therapy, Gait, Safety, Therapeutic Exercise, Transfers Treatment Duration: May 26, 2017 Visits Per Week: 10-15 Minutes/Day (M-F): 75-90 Minutes/Day (Sat/Anders): prn Safety Risks/Education Patient Education: Gait Training Teaching Recipient: Patient Teaching Methods: Demonstration, Discussion Response to Teaching: Reinforcement Needed Time/GCodes Time In: 900 Time Out: 945 Total Billed Treatment Time: 45 Total Billed Treatment visit GT 15 EX 15 FA 15 HUSSEIN JAMIL PT May 05, 2017 10:08
--- NOTE | 2017-05-05 10:57 | Speech Therapy Daily Note ---
Speech Daily Progress Note Subjective Date Seen by Provider: May 05, 2017 Time Seen by Provider: 08:15 The patient did not greet clinician upon entrance. The patient did open eyes and make eye contact, however, promptly closed eyes. Per OT and RN, the patient is not feeling well this morning with slightly elevated blood pressure. The patient was provided medication prior to this clinician's session. Objective - The patient required maximum clinician cueing and consistent, constant redirection to task for participation in therapy on this date. The patient consistently closed eyes and turned away from the clinician. - Orientation: The patient did not respond to simple orientation information on this date regardless of presentation (open-ended, yes and no questions, identification, field of two). Additionally, the patient did not state her name which has been completed with high accuracy in the past. - Yes/No Questions: The patient did not respond to yes and no questions on this date. The patient did not locate the words yes or no on a sheet of paper when written by the clinician. Assessment Assessment Current Status: Poor Progress Treatment Plan Continue Plan of Care Communication Comprehension: 2 Expression: 1 Social Cognition Social Interaction: 3 Problem Solvin Memory: 1 Speech Short Term Goals Short Term Goals Short Term Goals 1. The patient will identify items included in ADL activities with 80% accuracy in a field of two. 2. The patient will demonstrate accurate use of ADL items with 80% accuracy and mild clinician cueing. 3. The patient will follow one-step commands with 80% accuracy. Time Frame-STG: Two Weeks Speech Mcc Goals [employer] Systems Admin Goals The patient will demonstrate improvement with expressive and receptive language to increase functional communication in the least restrictive setting. Time Frame: Three Weeks Comprehension: 2 Expression: 2 Social Interaction: 3 Problem Solvin Memory: 3 Speech-Plan Treatment Plan Speech Therapy Treatment Plan: Continue Plan of Care Continue skilled speech pathology to target functional expressive and receptive communication. Treatment Duration: Apr 29, 2017 # of days/week Five. Visits Per Week: Five. Minutes/Day (M-F): 30 Rehab Potential: Guarded (prior CVA) Safety Risks/Education Teaching Recipient: Patient Teaching Methods: Demonstration, Discussion Response to Teaching: Unable to Comprehend Education Topics Provided: Orientation Strategies Time Speech Therapy Time In: 08:15 Speech Therapy Time Out: 08:45 Total Billed Time: 30 Billed Treatment Time SarojRHETT ELIZABETH ST May 05, 2017 10:57
--- NOTE | 2017-05-05 15:56 | Physical Therapy Daily Note ---
PT Daily Note-Current Subjective Pt sitting in recliner upon arrival. Pt reluctantly agrees to PT. Mental Status Patient Orientation: Non-Verbal/Aphasic Transfers Functional [place] Measure 0=Not Assessed/NA 4=Minimal Assistance 1=Total Assistance 5=Supervision or Setup 2=Maximal Assistance 6=Modified [place] 3=Moderate Assistance 7=Complete IndependenceIRFPAI Quality Coding Scale 6 Independent with activity with or without an assistive device 5 Patient requires set up or clean up by helper. Patient completes activity by themselves 4 Supervision or touching assist (CGA). [place] provide cues , steadying assist 3 The helper provides less than half the effort to complete the activity 2 The helper provides more than half the effort to complete the activity 1 Dependent. The helper does all the effort to complete an activity 7 Patient refused to complete or attempt activity 9 The patient did not perform the activity before the current illness or injury 88 Not attempted due to Medical conditions or safety concerns Scootin Sit to/from Stand: 4 Sit to Stand (QC): 4 Weight Bearing Weight Bearing Restriction: Full Weight Bearing Location Restriction: LE Bilateral Gait Training Does the Patient Walk?: Yes Distance (FIM): 4=324-39 ft Distance: 125' Walk 10 feet (QC): 4 Walk 50 ft with 2 Turns(QC): 4 Gait Level of Assist: 4 Gait Persons Needed: 1 Gait Assistive Device: FWW Pt walks with slow shahzad and fatigues quicker than usual. Wheelchair Training Does the Pt Use a Wheelchair?: No Exercises Seated Therapy Exercises: Ankle pumps, Long arc quads, Hip flexion, Kicking activity, Hip abd/add Seated Reps: 15 Treatments Pt completes Seated Ex in recliner before transferring from recliner to standing using FWW at CGA-Min A. Pt ambulates in Therapy [facility] using FWW at [facility] for fatigue and increased confusion. Pt returns to room after walk to rest in recliner at end of tx with all needs met. Assessment Current Status: Fair Progress Pt has increased confusion during tx. Pt fatigues quicker than previous tx. PT Short Term Goals Short Term Goals Time Frame: May 12, 2017 Transfers (B,C,W/C) (FIM): 5 Gait (FIM): 5 PT Residential Goals Residential Goals PT Residential Goals Time Frame: May 26, 2017 Transfers (B,C,W/C) (FIM): 6 Sit to Lying (QC): 6 Lying-Sitting on Side/Bed(QC): 6 Sit to Stand (QC): 6 Rollin Roll Left to Right (QC): 6 Chair/Oeb-zf-Rxlst Xfer(QC): 6 Car Transfer (QC): 5 Does the Patient Walk: Yes Gait (FIM): 6 Gait distance (FIM): 3=150 ft Walk 10 feet (QC): 6 Walk 10ft-Uneven Surface(QC): 6 Walk 50ft with 2 Turns (QC): 6 Walk 150 ft (QC): 6 Gait Level of Assist: 6 Gait Assistive Device: FWW Does the Pt use WC or Scooter?: No Stairs (FIM): 5 # of Steps: 8 1 Step (curb) (QC): 5 4 Steps (QC): 5 12 Steps (QC): 88 Picking up an Object (QC): 5 PT Plan Problem List Problem List: Activity Tolerance, Functional Strength, Safety, Balance, Gait, Transfer Treatment/Plan Treatment Plan: Continue Plan of Care Treatment Plan: Bed Mobility, Education, Functional Activity [place], Functional Strength, Group Therapy, Gait, Safety, Therapeutic Exercise, Transfers Treatment Duration: May 26, 2017 Visits Per Week: 10-15 Minutes/Day (M-F): 75-90 Minutes/Day (Sat/Anders): prn Safety Risks/Education Patient Education: Gait Training, Transfer Techniques, Correct Positioning, Safety Issues Teaching Recipient: Patient Teaching Methods: Discussion Response to Teaching: Verbalize Understanding Time/GCodes Time In: 1300 Time Out: 1330 Total Billed Treatment Time: 30 Total Billed Treatment visit, EX (15m) & GT (15m) JESSICA VIRGEN AIR COMPRESSOR MECHANIC May 05, 2017 15:56
[2017-05-05] MEDS: amLODIPine 5 MG (NORVASC) TAB PO SCH (18:38)
[2017-05-05 18:42] VITALS: BP 191/95
[2017-05-05] MEDS: ATORVASTATIN 20 MG (LIPITOR) TABLET PO SCH (20:50)
[2017-05-05] MEDS: LATANOPROST 0.005% (XALATAN) OPHTH SOLN 2.5 ML OU SCH (20:51)
[2017-05-06 05:17] VITALS: BP 120/66
[2017-05-06] MEDS: LEVOTHYROXINE 75 MCG (LEVOTHROID) TABLET PO SCH (05:51)
--- NOTE | 2017-05-06 07:42 | Occupational Ther Daily Note ---
OT Current Status-Daily Note Subjective Pt dozing, sitting in recliner. Pt needed encouragement to complete shower today. Pt did agree to therapy. No c/o pain. Pt feels better today. Mental Status/Objective Patient Orientation: Person, Place, Non-Verbal/Aphasic, Situation Functional [place] Measure 0=Not Assessed/NA 4=Minimal Assistance 1=Total Assistance 5=Supervision or Setup 2=Maximal Assistance 6=Modified [place] 3=Moderate Assistance 7=Complete [place] ADL-Treatment Functional [place] Measure 0=Not Assessed/NA 4=Minimal Assistance 1=Total Assistance 5=Supervision or Setup 2=Maximal Assistance 6=Modified [place] 3=Moderate Assistance 7=Complete IndependenceIRFPAI Quality Coding Scale 6 Independent with activity with or without an assistive device 5 Patient requires set up or clean up by helper. Patient completes activity by themselves 4 Supervision or touching assist (CGA). [place] provide cues , steadying assist 3 The helper provides less than half the effort to complete the activity 2 The helper provides more than half the effort to complete the activity 1 Dependent. The helper does all the effort to complete an activity 7 Patient refused to complete or attempt activity 9 The patient did not perform the activity before the current illness or injury 88 Not attempted due to Medical conditions or safety concerns Eating (FIM): 5 (Set up to eat. Is able to use utensils to feed self though will use fingers most of the time.) Bathing (FIM): 5 (Using shower bench, hand held shower and grabbars pt is able to complete bathing. Pt requires assist to set up bathing. Close SBA when standing to bathe buttocks.) Bathing Location: L Arm, R Arm, L Upper Leg, R Upper Leg, L Lower Leg ( including foot), R Lower Leg (including foot), Chest, Abdomen, Buttocks, Perineal Area Upper Body (FIM): 5 (After set up, pt is able to complete by self.) Lower Body Dressing (FIM): 4 (Pt requires assist to don pants/underwear over R foot then is able to pull up legs and hike over hips with SBA. Pt is able to don socks by self.) Transfers (B, C, W/C) (FIM): 4 (Min A for sit to stand then CGA for transfer.) Shower Transfer(FIM): 4 (CGA for transfer using FWW, grabbars and shower bench..) Pt required assistance to initiate tasks. Pt requires soap to be placed on wash clothe then handed to her. Pt gets frustrated quickly and takes increased time to motor plan and initiate tasks. After therapy, pt sitting in recliner finishing breakfast. Call light/phone in reach. All needs met in room. OT Short Term Goals Short Term Goals Time Frame: May 07, 2017 Eating(FIM): 5 Grooming(FIM): 4 Bathing(FIM): 4 Upper Body Dressing(FIM): 4 Lower Body Dressing(FIM): 4 Toileting(FIM): 4 Transfers (B,C,W/C) (FIM): 5 Toilet/Commode Transfer(FIM): 4 Additional Short Term Goals: 2-Verbalize Understanding, 3-ImproveStrength/[place] 1=Demonstrate adherence to instructed precautions during ADL tasks. 2=Patient will verbalize/demonstrate understanding of assistive devices/ modifications for ADL. 3=Patient will improve strength/tolerance for activity to enable patient to perform ADL's. OT Bar Welder Goals Bar Welder Goals Time Frame: May 21, 2017 Eating (FIM): 6 Eating (QC): 6 Groomin Oral Hygiene (QC): 5 Bathing(FIM): 5 Shower/Bathe Self (QC): 5 Upper Body Dressing(FIM): 5 Upper Body Dressing (QC): 5 Lower Body Dressing(FIM): 5 Lower Body Dressing (QC): 5 On/Off Footwear (QC): 5 Toileting(FIM): 5 Toileting Hygiene (QC): 5 Toilet/Commode Transfer(FIM): 5 Toilet/Commode Transfer (QC): 5 Shower Transfer(FIM): 5 Comprehension(FIM): 2 Expression (FIM): 2 Social Interaction(FIM): 3 Problem Solving(FIM): 3 Memory(FIM): 3 Additional Goals: 2-Verbalize Understanding, 3-ImproveStrength/[place] 1=Demonstrate adherence to instructed precautions during ADL tasks. 2=Patient will verbalize/demonstrate understanding of assistive devices/ modifications for ADL. 3=Patient will improve strength/tolerance for activity to enable patient to perform ADL's. OT Education/Plan Problem List/Assessment Pt would benefit from skilled OT to increase her independence in basic self care skills to allow her to safely return to her home to live with her and to decrease caregiver burden. Discharge Recommendations Plan/Recommendations: Continue POC Treatment Plan/Plan of Care Patient would benefit from OT for education, treatment and training to promote independence in ADL's, mobility, safety and/or upper extremity function for ADL' s. Plan of Care: ADL Retraining, Functional Mobility, Group Exercise/Act as Ind ( education, exercise, funct activity, communication, socialization), UE Funct Exercise/Act, UE Neuromus Re-Ed/Coord Treatment Duration: May 21, 2017 Visits Per Week: 10-11 Minutes/Day (M-F): 75-90 Minutes/Day (Sat/Anders): PRN Agreement: Yes Rehab Potential: Guarded (prior CVA) Time/GCodes Start Time: 07:00 Stop Time: 08:00 Total Time Billed (hr/min): 60 Billed Treatment Time 1 visit-ADL 4 (60 min) HUSSEIN PERDOMO May 06, 2017 07:42
[2017-05-06] MEDS: GABAPENTIN 300 MG (NEURONTIN) CAP PO SCH ×2 (08:17→20:38)
[2017-05-06] MEDS: lisINopril 10 MG (PRINIVIL) TAB PO SCH (08:17)
[2017-05-06] MEDS: ATENOLOL 25 MG (TENORMIN) TAB PO SCH (08:17)
[2017-05-06] MEDS: DIGOXIN 0.125 MG (LANOXIN) TAB PO SCH (08:17)
[2017-05-06] MEDS: amLODIPine 5 MG (NORVASC) TAB PO SCH (08:17)
[2017-05-06] MEDS: FOLIC ACID 1 MG TAB PO SCH ×2 (08:17→20:38)
[2017-05-06] MEDS: prednisoLONE 1% OPTH (PRED FORTE) 5 ML BTL OD SCH ×4 (08:19→20:39)
[2017-05-06] MEDS: CYCLOPENTOLATE 1% (CYCLOGYL) 2 ML DROPS OP SCH (08:20)
[2017-05-06] MEDS: BRIMONIDINE 0.2% (ALPHAGAN) OPHTH SOLN 5 ML BTL OU SCH ×3 (09:12→20:39)
[2017-05-06] MEDS: TIMOLOL MALEATE 0.5% 5 ML (TIMOPTIC) BTL OU SCH ×2 (09:16→20:39)
[2017-05-06] MEDS: ZINC OXIDE 16% OINT (BUTT PASTE) 113 GM TUBE TOP SCH ×2 (09:16→20:39)
--- NOTE | 2017-05-06 09:50 | PM & R (SOAP) Progress Note ---
Subjective Time Seen by Provider: 08:00 Subjective/Events-last exam Patient was seen in her room this AM.Patient min assist for transfers and gait Objective Exam Last Set of Vital Signs Vital Signs Date Time Temp Pulse Resp B/P (MAP) Pulse Ox O2 Delivery O2 Flow Rate FiO2 05/06/17 05:17 99.1 70 16 120/66 95 Room Air Capillary Refill : Less Than 3 Seconds I&O Intake and Output 05/06/17 00:00 Intake Total 840 ml Balance 840 ml Intake Oral 840 ml # Voids 7 # Bowel Movements 1 General: Alert, Cooperative, No Acute Distress HEENT: Atraumatic, PERRLA, EOMI, Mucous Memb Moist/[place] Neck: Supple, No JVD Lungs: Clear to Auscultation Heart: Other (irregular) Abdomen: Normal Bowel Sounds, Soft Extremities: No Edema Neuro: Other (RT HP and aphasia) Psych/Mental Status: Other (flat affect) Results Lab Laboratory Tests 05/04/17 06:43: Sodium Level 143, Potassium Level 3.7, Chloride Level 106, Carbon Dioxide Level 26, Anion Gap 11, Blood Urea Nitrogen 10, Creatinine 0.71, Estimat Glomerular Filtration Rate > 60, BUN/Creatinine Ratio 14, Glucose Level 89, Calcium Level 9.5 Assessment/Plan Assessment 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 Chronic a FIB controlled with meds OAC with Eliquis currently on hold will f/u re resuming-on hold for another week Hypokalemia-replace HTN controlled RA on methotrexate weekly with post surgical chages to feet and Deformities of both hands Glaucoma on eyedrops Reactive depression Plan Continue PT/OT/ST Appreciate ST Note-Discussed case with earlier this week Replaced K-recheck labs in am F/U with Hospitalist service re resuming Eliquis-done Discussed case with DR Otto last week -Eliquis on hold for 1 more week due to risk of bleed due to multiple infarcts Team Conference held yesterday- 05/05/17 See report for full functional update and POC and ELOS Started Celexa fro depression Monitor for improvement in mood . JESSI JONES MD May 06, 2017 09:50
--- NOTE | 2017-05-06 11:16 | Physical Therapy Daily Note ---
PT Daily Note-Current Subjective Pt is sitting in recliner upon arrival. PT agrees to PT. Pt is able to express verbally a little better this morning although still appears depressed. Mental Status Patient Orientation: Non-Verbal/Aphasic Transfers Functional [place] Measure 0=Not Assessed/NA 4=Minimal Assistance 1=Total Assistance 5=Supervision or Setup 2=Maximal Assistance 6=Modified [place] 3=Moderate Assistance 7=Complete IndependenceIRFPAI Quality Coding Scale 6 Independent with activity with or without an assistive device 5 Patient requires set up or clean up by helper. Patient completes activity by themselves 4 Supervision or touching assist (CGA). [place] provide cues , steadying assist 3 The helper provides less than half the effort to complete the activity 2 The helper provides more than half the effort to complete the activity 1 Dependent. The helper does all the effort to complete an activity 7 Patient refused to complete or attempt activity 9 The patient did not perform the activity before the current illness or injury 88 Not attempted due to Medical conditions or safety concerns Scootin Sit to/from Stand: 4 Sit to Stand (QC): 4 Weight Bearing Weight Bearing Restriction: Full Weight Bearing Location Restriction: LE Bilateral Gait Training Does the Patient Walk?: Yes Distance (FIM): 3=150 ft Distance: 150' Walk 10 feet (QC): 4 Walk 50 ft with 2 Turns(QC): 4 Walk 150 ft (QC): 4 Gait Level of Assist: 4 Gait Persons Needed: 1 Gait Assistive Device: FWW Pt walks with slow but steady shahzad, no LOB. Pt walks with slight shuffle especially with RLE when fatigued. Wheelchair Training Does the Pt Use a Wheelchair?: No Exercises Seated Therapy Exercises: Ankle pumps, Long arc quads, Hip flexion, Kicking activity Seated Reps: 15 NuStep Minutes: 8 NuStep Workload: 2 Treatments Pt transfers from recliner to standing using FWW at CGA-Min A. Pt ambulates using FWW at CGA due to fatigue. Pt completes Seated Ex in chair as well as NuStep for 8m at Workload 2 to increase strength BLE, activity tolerance and balance. Pt returns to room to rest in recliner at end of tx with all needs met. Assessment Current Status: Fair Progress Pt fatigues easy and needs rest breaks during tx. Pt has seemed depressed the last couple of days and gets a little frustrated when trying to communicate and with not being able to complete tasks as well as she feels she should be doing. PT Short Term Goals Short Term Goals Time Frame: May 12, 2017 Transfers (B,C,W/C) (FIM): 5 Gait (FIM): 5 PT Supervisor Housecleaner Goals Half-Way Goals PT Supervisor Housecleaner Goals Time Frame: May 26, 2017 Transfers (B,C,W/C) (FIM): 6 Sit to Lying (QC): 6 Lying-Sitting on Side/Bed(QC): 6 Sit to Stand (QC): 6 Rollin Roll Left to Right (QC): 6 Chair/Lao-cd-Gjavt Xfer(QC): 6 Car Transfer (QC): 5 Does the Patient Walk: Yes Gait (FIM): 6 Gait distance (FIM): 3=150 ft Walk 10 feet (QC): 6 Walk 10ft-Uneven Surface(QC): 6 Walk 50ft with 2 Turns (QC): 6 Walk 150 ft (QC): 6 Gait Level of Assist: 6 Gait Assistive Device: FWW Does the Pt use WC or Scooter?: No Stairs (FIM): 5 # of Steps: 8 1 Step (curb) (QC): 5 4 Steps (QC): 5 12 Steps (QC): 88 Picking up an Object (QC): 5 PT Plan Problem List Problem List: Activity Tolerance, Functional Strength, Safety, Balance, Gait, Transfer Treatment/Plan Treatment Plan: Continue Plan of Care Treatment Plan: Bed Mobility, Education, Functional Activity [place], Functional Strength, Group Therapy, Gait, Safety, Therapeutic Exercise, Transfers Treatment Duration: May 26, 2017 Visits Per Week: 10-15 Minutes/Day (M-F): 75-90 Minutes/Day (Sat/Anders): prn Safety Risks/Education Patient Education: Gait Training, Transfer Techniques, Correct Positioning Teaching Recipient: Patient Teaching Methods: Discussion Response to Teaching: Reinforcement Needed Time/GCodes Time In: 1000 Time Out: 1045 Total Billed Treatment Time: 45 Total Billed Treatment visit, GT (15m) & EX x2 (30m) JESSICA VIRGEN PHARMACY SERVICES REPRESENTATIVE May 06, 2017 11:16
--- NOTE | 2017-05-06 11:39 | Progress Note-Hospitalist ---
Progress Note HPI/CC on Admission CC: Stroke HPI: This is a 81 [address] Enciso in [place] who presented with the above. Dr. Enciso Review: Pt came in last week with three new infarcts so we consulted neurology, they recommended holding Eliquis for about two weeks. Eliquis was put on hold day 7. Pharmacy Review: We are still figuring out why the Eliquis is on hold from Dr. Enciso. We are also trying to figure out if she was on Eliquis at [facility]. There was an order for it, but no scripts written. Pt was DC April 02 from [place] on Eliquis Patient Interview: Pt is able to make sounds, but cannot form words. She seems to understand what is said to her. Plan: Monitor pt Scribed by Eli Carmona under the direct supervision of Dr. Otto. Progress Notes/Assess & Plan Date Seen 05/06/17 Time Seen by Provider: 10:45 Admission Dx/Process Assessment: Partial aphasia with dysarthria Recurrent stroke one large enough to place patient had a bleed risk so holding anticoagulation for 2 weeks beginning 04/21/17 Hypertension Atrial fibrillation Hyperlipidemia Rheumatoid arthritis Hypothyroidism Diagonsis/Assessment & Plan Patient doing well but did require the addition of Norvasc 5 mg daily last night because of SBP of 200 Doing well with therapy and participating well No fever, vital signs stable, dysarthric Irregular irregular rhythm, clear to auscultation bilaterally No edema Assessment: Partial aphasia with dysarthria Recurrent stroke one large enough to place patient had a bleed risk so holding anticoagulation for 2 weeks beginning 04/21/17 so will start back today Hypertension Atrial fibrillation Hyperlipidemia Rheumatoid arthritis Hypothyroidism Plan: Maintain home meds Add blood pressure med and monitor Speech therapy Hold anticoagulation until 05/06/17 so will start today. CECILLE OTTO DO May 06, 2017 11:39
--- NOTE | 2017-05-06 14:17 | Occupational Ther Daily Note ---
OT Current Status-Daily Note Subjective Pt alert, sitting in recliner. Pt agreed to therapy. No c/o pain. Mental Status/Objective Functional [place] Measure 0=Not Assessed/NA 4=Minimal Assistance 1=Total Assistance 5=Supervision or Setup 2=Maximal Assistance 6=Modified [place] 3=Moderate Assistance 7=Complete [place] ADL-Treatment Functional [place] Measure 0=Not Assessed/NA 4=Minimal Assistance 1=Total Assistance 5=Supervision or Setup 2=Maximal Assistance 6=Modified [place] 3=Moderate Assistance 7=Complete IndependenceIRFPAI Quality Coding Scale 6 Independent with activity with or without an assistive device 5 Patient requires set up or clean up by helper. Patient completes activity by themselves 4 Supervision or touching assist (CGA). [place] provide cues , steadying assist 3 The helper provides less than half the effort to complete the activity 2 The helper provides more than half the effort to complete the activity 1 Dependent. The helper does all the effort to complete an activity 7 Patient refused to complete or attempt activity 9 The patient did not perform the activity before the current illness or injury 88 Not attempted due to Medical conditions or safety concerns Other Treatment Pt worked on time and reading a clock. Pt did not demonstrate understanding of activity or matching digital time to analog time. Lunch arrived and pt was able to verbalize and vocalize what she wanted on the tray and not wanted. Pt chose more things that she could turn into finger food. Pt requested to put all liquids into small cups. After therapy, pt sitting in recliner and just arrived. Call light/phone in reach. All needs met in room. OT Short Term Goals Short Term Goals Time Frame: May 07, 2017 Eating(FIM): 5 Grooming(FIM): 4 Bathing(FIM): 4 Upper Body Dressing(FIM): 4 Lower Body Dressing(FIM): 4 Toileting(FIM): 4 Transfers (B,C,W/C) (FIM): 5 Toilet/Commode Transfer(FIM): 4 Additional Short Term Goals: 2-Verbalize Understanding, 3-ImproveStrength/[place] 1=Demonstrate adherence to instructed precautions during ADL tasks. 2=Patient will verbalize/demonstrate understanding of assistive devices/ modifications for ADL. 3=Patient will improve strength/tolerance for activity to enable patient to perform ADL's. OT Mcc Goals Mcc Goals Time Frame: May 21, 2017 Eating (FIM): 6 Eating (QC): 6 Groomin Oral Hygiene (QC): 5 Bathing(FIM): 5 Shower/Bathe Self (QC): 5 Upper Body Dressing(FIM): 5 Upper Body Dressing (QC): 5 Lower Body Dressing(FIM): 5 Lower Body Dressing (QC): 5 On/Off Footwear (QC): 5 Toileting(FIM): 5 Toileting Hygiene (QC): 5 Toilet/Commode Transfer(FIM): 5 Toilet/Commode Transfer (QC): 5 Shower Transfer(FIM): 5 Comprehension(FIM): 2 Expression (FIM): 2 Social Interaction(FIM): 3 Problem Solving(FIM): 3 Memory(FIM): 3 Additional Goals: 2-Verbalize Understanding, 3-ImproveStrength/[place] 1=Demonstrate adherence to instructed precautions during ADL tasks. 2=Patient will verbalize/demonstrate understanding of assistive devices/ modifications for ADL. 3=Patient will improve strength/tolerance for activity to enable patient to perform ADL's. OT Education/Plan Problem List/Assessment Pt would benefit from skilled OT to increase her independence in basic self care skills to allow her to safely return to her home to live with her and to decrease caregiver burden. Discharge Recommendations Plan/Recommendations: Continue POC Treatment Plan/Plan of Care Patient would benefit from OT for education, treatment and training to promote independence in ADL's, mobility, safety and/or upper extremity function for ADL' s. Plan of Care: ADL Retraining, Functional Mobility, Group Exercise/Act as Ind ( education, exercise, funct activity, communication, socialization), UE Funct Exercise/Act, UE Neuromus Re-Ed/Coord Treatment Duration: May 21, 2017 Visits Per Week: 10-11 Minutes/Day (M-F): 75-90 Minutes/Day (Sat/Anders): PRN Agreement: Yes Rehab Potential: Guarded (prior CVA) Time/GCodes Start Time: 11:30 Stop Time: 11:45 Total Time Billed (hr/min): 15 Billed Treatment Time 1 visit-FA 1 (15 min) HUSSEIN PERDOMO May 06, 2017 14:17
--- NOTE | 2017-05-06 15:11 | Physical Therapy Daily Note ---
PT Daily Note-Current Subjective Pt sitting in recliner with Sp present upon arrival. Pt agrees to PT. Pain Location: No Pain Reported Mental Status Patient Orientation: Person, Non-Verbal/Aphasic Transfers Functional [place] Measure 0=Not Assessed/NA 4=Minimal Assistance 1=Total Assistance 5=Supervision or Setup 2=Maximal Assistance 6=Modified [place] 3=Moderate Assistance 7=Complete IndependenceIRFPAI Quality Coding Scale 6 Independent with activity with or without an assistive device 5 Patient requires set up or clean up by helper. Patient completes activity by themselves 4 Supervision or touching assist (CGA). [place] provide cues , steadying assist 3 The helper provides less than half the effort to complete the activity 2 The helper provides more than half the effort to complete the activity 1 Dependent. The helper does all the effort to complete an activity 7 Patient refused to complete or attempt activity 9 The patient did not perform the activity before the current illness or injury 88 Not attempted due to Medical conditions or safety concerns Scootin Sit to/from Stand: 4 Sit to Stand (QC): 4 Weight Bearing Weight Bearing Restriction: Full Weight Bearing Location Restriction: LE Bilateral Gait Training Does the Patient Walk?: Yes Distance (FIM): 3=150 ft Distance: 175' Walk 10 feet (QC): 3 Walk 50 ft with 2 Turns(QC): 3 Walk 150 ft (QC): 3 Gait Level of Assist: 3 Gait Persons Needed: 1 Gait Assistive Device: FWW PT gave more assistance with advancing RLE. Pt's shahzad is slow and drags R toes as advancing. Wheelchair Training Does the Pt Use a Wheelchair?: No Exercises Seated Therapy Exercises: Ankle pumps, Long arc quads, Hip flexion, Kicking activity Seated Reps: 15 Treatments Pt transfers from recliner using FWW at CGA-Min A. Pt ambulates using FWW at Min-Mod A, especially with advancing R foot. Pt completes Seated Ex in chair before returning to room to rest in recliner. Pt rests in recliner at end of tx with all needs met. Assessment Current Status: Fair Progress Pt still struggles aphasia and has difficulty communicating. Pt fatigues easy, needing rest breaks. PT Short Term Goals Short Term Goals Time Frame: May 12, 2017 Transfers (B,C,W/C) (FIM): 5 Gait (FIM): 5 PT Fci Goals Fci Goals PT Strike Plate Attacher Goals Time Frame: May 26, 2017 Transfers (B,C,W/C) (FIM): 6 Sit to Lying (QC): 6 Lying-Sitting on Side/Bed(QC): 6 Sit to Stand (QC): 6 Rollin Roll Left to Right (QC): 6 Chair/Smc-ss-Lrfqk Xfer(QC): 6 Car Transfer (QC): 5 Does the Patient Walk: Yes Gait (FIM): 6 Gait distance (FIM): 3=150 ft Walk 10 feet (QC): 6 Walk 10ft-Uneven Surface(QC): 6 Walk 50ft with 2 Turns (QC): 6 Walk 150 ft (QC): 6 Gait Level of Assist: 6 Gait Assistive Device: FWW Does the Pt use WC or Scooter?: No Stairs (FIM): 5 # of Steps: 8 1 Step (curb) (QC): 5 4 Steps (QC): 5 12 Steps (QC): 88 Picking up an Object (QC): 5 PT Plan Problem List Problem List: Activity Tolerance, Functional Strength, Safety, Balance, Gait, Transfer Treatment/Plan Treatment Plan: Continue Plan of Care Treatment Plan: Bed Mobility, Education, Functional Activity [place], Functional Strength, Group Therapy, Gait, Safety, Therapeutic Exercise, Transfers Treatment Duration: May 26, 2017 Visits Per Week: 10-15 Minutes/Day (M-F): 75-90 Minutes/Day (Sat/Anders): prn Safety Risks/Education Patient Education: Gait Training, Transfer Techniques, Correct Positioning, Safety Issues Teaching Recipient: Patient Teaching Methods: Discussion Response to Teaching: Reinforcement Needed Time/GCodes Time In: 1400 Time Out: 1430 Total Billed Treatment Time: 30 Total Billed Treatment visit, GT (15m) & EX (15m) JESSICA VIRGEN FRAMING SPECIALIST May 06, 2017 15:11
--- NOTE | 2017-05-06 15:24 | Speech Therapy Daily Note ---
Speech Daily Progress Note Subjective Date Seen by Provider: May 06, 2017 Time Seen by Provider: 08:15 The patient was seated upright in recliner upon entrance. The patient greeted the clinician appropriately and was agreeable to participation in the language session. The patient appears and reported to feeling much better on this date. The patient frequently smiles throughout the session and communicates with increased ease. Objective Orientation (yes and no questions): The patient remained unable to reply consistently and accurately to yes and no questions regarding orientation information. The patient was able to state her name correctly on this date. Bilabial Single Word Repetition: The patient was unable to repeat single bilabial words following multiple direct modeling demonstrations by the clinician. The patient was able to repeat bilabial single syllables and phonemes. The patient demonstrated difficulty adjusting the phoneme behind the initial consonant (a, e, i, o, u). Confrontational Naming and Identification: The patient was unable to state the name or locate a specific item by name or function in a field of two or in isolation. Assessment Assessment Current Status: Poor Progress Treatment Plan Continue Plan of Care Communication Comprehension: 2 Expression: 1 Social Cognition Social Interaction: 2 Problem Solvin Memory: 2 Speech Short Term Goals Short Term Goals Short Term Goals 1. The patient will identify items included in ADL activities with 80% accuracy in a field of two. 2. The patient will demonstrate accurate use of ADL items with 80% accuracy and mild clinician cueing. 3. The patient will follow one-step commands with 80% accuracy. Time Frame-STG: Two Weeks Speech Fitter Type Bar And Segment Goals Fitter Type Bar And Segment Goals The patient will demonstrate improvement with expressive and receptive language to increase functional communication in the least restrictive setting. Time Frame: Three Weeks Comprehension: 2 Expression: 2 Social Interaction: 3 Problem Solvin Memory: 3 Speech-Plan Treatment Plan Speech Therapy Treatment Plan: Continue Plan of Care Continue skilled speech pathology to target functional expressive and receptive communication. Treatment Duration: Apr 29, 2017 # of days/week Five. Visits Per Week: Five. Minutes/Day (M-F): 30 Rehab Potential: Guarded (prior CVA) Safety Risks/Education Teaching Recipient: Patient Teaching Methods: Demonstration, Handout, Discussion Response to Teaching: Unable to Return Demonstration Education Topics Provided: Bilabial Practice Sheet Time Speech Therapy Time In: 08:15 Speech Therapy Time Out: 08:45 Total Billed Time: 30 Billed Treatment Time 1, MATTHIEU BRAVO May 06, 2017 15:24
[2017-05-06 18:00] VITALS: BP 103/95
[2017-05-06] MEDS: APIXABAN 5 MG (ELIQUIS) TABLET PO SCH (20:38)
[2017-05-06] MEDS: ATORVASTATIN 20 MG (LIPITOR) TABLET PO SCH (20:38)
[2017-05-06] MEDS: LATANOPROST 0.005% (XALATAN) OPHTH SOLN 2.5 ML OU SCH (20:41)
[2017-05-07 05:39] VITALS: BP 116/72
[2017-05-07] MEDS: LEVOTHYROXINE 75 MCG (LEVOTHROID) TABLET PO SCH (06:20)
[2017-05-07] MEDS: GABAPENTIN 300 MG (NEURONTIN) CAP PO SCH ×2 (08:10→22:03)
[2017-05-07] MEDS: APIXABAN 5 MG (ELIQUIS) TABLET PO SCH ×2 (08:11→22:03)
[2017-05-07] MEDS: ATENOLOL 25 MG (TENORMIN) TAB PO SCH (08:11)
[2017-05-07] MEDS: DIGOXIN 0.125 MG (LANOXIN) TAB PO SCH (08:11)
[2017-05-07] MEDS: amLODIPine 5 MG (NORVASC) TAB PO SCH (08:11)
[2017-05-07] MEDS: lisINopril 10 MG (PRINIVIL) TAB PO SCH (08:11)
[2017-05-07] MEDS: FOLIC ACID 1 MG TAB PO SCH ×2 (08:11→22:03)
[2017-05-07] MEDS: prednisoLONE 1% OPTH (PRED FORTE) 5 ML BTL OD SCH ×4 (08:12→22:03)
[2017-05-07] MEDS: CYCLOPENTOLATE 1% (CYCLOGYL) 2 ML DROPS OP SCH (08:13)
[2017-05-07] MEDS: TIMOLOL MALEATE 0.5% 5 ML (TIMOPTIC) BTL OU SCH ×2 (08:13→22:03)
[2017-05-07] MEDS: BRIMONIDINE 0.2% (ALPHAGAN) OPHTH SOLN 5 ML BTL OU SCH ×3 (08:14→22:03)
[2017-05-07] MEDS: ZINC OXIDE 16% OINT (BUTT PASTE) 113 GM TUBE TOP SCH ×2 (08:14→22:04)
--- NOTE | 2017-05-07 08:16 | PM & R (SOAP) Progress Note ---
Subjective Time Seen by Provider: 07:35 Subjective/Events-last exam Patient was seen in her room this AM Patient mod assist for transfers and gait, Objective Exam Last Set of Vital Signs Vital Signs Date Time Temp Pulse Resp B/P (MAP) Pulse Ox O2 Delivery O2 Flow Rate FiO2 05/07/17 05:39 98.3 64 16 116/72 96 Room Air Capillary Refill : Less Than 3 Seconds I&O Intake and Output 05/07/17 00:00 Intake Total 1290 ml Balance 1290 ml Intake Oral 1290 ml # Voids 8 General: Alert, Cooperative, No Acute Distress HEENT: Atraumatic, PERRLA, EOMI, Mucous Memb Moist/[place] Neck: Supple, No JVD Lungs: Clear to Auscultation Heart: Other (irregular) Abdomen: Normal Bowel Sounds, Soft Extremities: No Edema Neuro: Other (RT HP and aphasia) Psych/Mental Status: Other (flat affect) Assessment/Plan Assessment 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 Chronic a FIB controlled with meds OAC with Eliquis currently on hold will f/u re resuming-on hold for another week Hypokalemia-replaced HTN controlled RA on methotrexate weekly with post surgical chages to feet and Deformities of both hands Glaucoma on eyedrops Reactive depression Plan Continue PT/OT/ST Appreciate ST Note-Discussed case with earlier this week Replaced K-rechecked labs now WNL 05-04-17 F/U with Hospitalist service re resuming Eliquis-done Discussed case with DR Otto last week -Eliquis on hold for 1 more week due to risk of bleed due to multiple infarcts Team Conference held 05/05/17 See report for full functional update and POC and ELOS Started Celexa fro depression Monitor for improvement in mood Discharge set tentatively for 05/11/17 . JESSI JONES MD May 07, 2017 08:16
--- NOTE | 2017-05-07 09:59 | Occupational Ther Daily Note ---
OT Current Status-Daily Note Subjective Pt sleeping in recliner. Pt did not open eyes to name though did vocalize/ mumble in acknowledgement. BP in R arm-103/61 and L arm 106/71, pulse went from 54-73, O2 97. Pt did agree to therapy today, but wanted to stay in the recliner. Mental Status/Objective Patient Orientation: Person, Non-Verbal/Aphasic Functional [place] Measure 0=Not Assessed/NA 4=Minimal Assistance 1=Total Assistance 5=Supervision or Setup 2=Maximal Assistance 6=Modified [place] 3=Moderate Assistance 7=Complete [place] ADL-Treatment Pt agreed to dressing and limited sponge bathing (face). Pt lethargic and decreased activity tolerance. Reported to nrsg. Pt required increased assistance for donning socks and pants. LOB when standing to hike pants over hips. Pt took increased time to complete. After set up, pt was able to complete grooming sitting in recliner. After therapy, pt sitting in recliner with call light/phone in reach. Pt immediately fell back to sleep as therapist walked out of room. All needs met in room. Functional [place] Measure 0=Not Assessed/NA 4=Minimal Assistance 1=Total Assistance 5=Supervision or Setup 2=Maximal Assistance 6=Modified [place] 3=Moderate Assistance 7=Complete IndependenceIRFPAI Quality Coding Scale 6 Independent with activity with or without an assistive device 5 Patient requires set up or clean up by helper. Patient completes activity by themselves 4 Supervision or touching assist (CGA). [place] provide cues , steadying assist 3 The helper provides less than half the effort to complete the activity 2 The helper provides more than half the effort to complete the activity 1 Dependent. The helper does all the effort to complete an activity 7 Patient refused to complete or attempt activity 9 The patient did not perform the activity before the current illness or injury 88 Not attempted due to Medical conditions or safety concerns OT Short Term Goals Short Term Goals Time Frame: May 07, 2017 Eating(FIM): 5 Grooming(FIM): 4 Bathing(FIM): 4 Upper Body Dressing(FIM): 4 Lower Body Dressing(FIM): 4 Toileting(FIM): 4 Transfers (B,C,W/C) (FIM): 5 Toilet/Commode Transfer(FIM): 4 Additional Short Term Goals: 2-Verbalize Understanding, 3-ImproveStrength/[place] 1=Demonstrate adherence to instructed precautions during ADL tasks. 2=Patient will verbalize/demonstrate understanding of assistive devices/ modifications for ADL. 3=Patient will improve strength/tolerance for activity to enable patient to perform ADL's. OT Airline Managerial Supervisor Goals Snf Goals Time Frame: May 21, 2017 Eating (FIM): 6 Eating (QC): 6 Groomin Oral Hygiene (QC): 5 Bathing(FIM): 5 Shower/Bathe Self (QC): 5 Upper Body Dressing(FIM): 5 Upper Body Dressing (QC): 5 Lower Body Dressing(FIM): 5 Lower Body Dressing (QC): 5 On/Off Footwear (QC): 5 Toileting(FIM): 5 Toileting Hygiene (QC): 5 Toilet/Commode Transfer(FIM): 5 Toilet/Commode Transfer (QC): 5 Shower Transfer(FIM): 5 Comprehension(FIM): 2 Expression (FIM): 2 Social Interaction(FIM): 3 Problem Solving(FIM): 3 Memory(FIM): 3 Additional Goals: 2-Verbalize Understanding, 3-ImproveStrength/[place] 1=Demonstrate adherence to instructed precautions during ADL tasks. 2=Patient will verbalize/demonstrate understanding of assistive devices/ modifications for ADL. 3=Patient will improve strength/tolerance for activity to enable patient to perform ADL's. OT Education/Plan Problem List/Assessment Pt would benefit from skilled OT to increase her independence in basic self care skills to allow her to safely return to her home to live with her and to decrease caregiver burden. Discharge Recommendations Plan/Recommendations: Continue POC Treatment Plan/Plan of Care Patient would benefit from OT for education, treatment and training to promote independence in ADL's, mobility, safety and/or upper extremity function for ADL' s. Plan of Care: ADL Retraining, Functional Mobility, Group Exercise/Act as Ind ( education, exercise, funct activity, communication, socialization), UE Funct Exercise/Act, UE Neuromus Re-Ed/Coord Treatment Duration: May 21, 2017 Visits Per Week: 10-11 Minutes/Day (M-F): 75-90 Minutes/Day (Sat/Anders): PRN Agreement: Yes Rehab Potential: Guarded (prior CVA) Time/GCodes Start Time: 09:00 Stop Time: 09:45 Total Time Billed (hr/min): 45 Billed Treatment Time 1 visit-ADL 3 (45 min) HUSSEIN PERDOMO May 07, 2017 09:59
--- NOTE | 2017-05-07 11:09 | Physical Therapy Daily Note ---
PT Daily Note-Current Subjective Pt sitting in recliner upon arrival. Per OT, pt's BP had been a little low this morning so PT will monitor during tx. Pt agrees to limited PT tx. Mental Status Patient Orientation: Person, Non-Verbal/Aphasic Transfers Functional [place] Measure 0=Not Assessed/NA 4=Minimal Assistance 1=Total Assistance 5=Supervision or Setup 2=Maximal Assistance 6=Modified [place] 3=Moderate Assistance 7=Complete IndependenceIRFPAI Quality Coding Scale 6 Independent with activity with or without an assistive device 5 Patient requires set up or clean up by helper. Patient completes activity by themselves 4 Supervision or touching assist (CGA). [place] provide cues , steadying assist 3 The helper provides less than half the effort to complete the activity 2 The helper provides more than half the effort to complete the activity 1 Dependent. The helper does all the effort to complete an activity 7 Patient refused to complete or attempt activity 9 The patient did not perform the activity before the current illness or injury 88 Not attempted due to Medical conditions or safety concerns Scootin Sit to/from Stand: 4 Sit to Stand (QC): 4 Weight Bearing Weight Bearing Restriction: Full Weight Bearing Location Restriction: LE Bilateral Wheelchair Training Does the Pt Use a Wheelchair?: No Exercises Seated Therapy Exercises: Ankle pumps, Long arc quads, Hip flexion, Kicking activity, Hip abd/add Seated Reps: 15 Treatments BP is 106/65, P is 61 & O2 is 96% at start of tx. Pt completes Seated Ex with VC & demonstration to assist with tasks. Pt completes sit to stands from recliner using FWW at CGA & VC for hand placement & sequencing. BP is 114/68, P is 60 & O2 is 95% at end of tx. Pt takes rest breaks between activities. Assessment Current Status: Fair Progress Pt's vitals were not bad before or after tx but pt continues to be more lethargic and sleepy as well as more confused today than normal. PT Short Term Goals Short Term Goals Time Frame: May 12, 2017 Transfers (B,C,W/C) (FIM): 5 Gait (FIM): 5 PT Senior Tax Manager Goals Group Home Goals PT Group Home Goals Time Frame: May 26, 2017 Transfers (B,C,W/C) (FIM): 6 Sit to Lying (QC): 6 Lying-Sitting on Side/Bed(QC): 6 Sit to Stand (QC): 6 Rollin Roll Left to Right (QC): 6 Chair/Eoe-cp-Zrdcs Xfer(QC): 6 Car Transfer (QC): 5 Does the Patient Walk: Yes Gait (FIM): 6 Gait distance (FIM): 3=150 ft Walk 10 feet (QC): 6 Walk 10ft-Uneven Surface(QC): 6 Walk 50ft with 2 Turns (QC): 6 Walk 150 ft (QC): 6 Gait Level of Assist: 6 Gait Assistive Device: FWW Does the Pt use WC or Scooter?: No Stairs (FIM): 5 # of Steps: 8 1 Step (curb) (QC): 5 4 Steps (QC): 5 12 Steps (QC): 88 Picking up an Object (QC): 5 PT Plan Problem List Problem List: Activity Tolerance, Functional Strength, Safety, Balance, Gait, Transfer Treatment/Plan Treatment Plan: Continue Plan of Care Treatment Plan: Bed Mobility, Education, Functional Activity [place], Functional Strength, Group Therapy, Gait, Safety, Therapeutic Exercise, Transfers Treatment Duration: May 26, 2017 Visits Per Week: 10-15 Minutes/Day (M-F): 75-90 Minutes/Day (Sat/Anders): prn Safety Risks/Education Patient Education: Transfer Techniques, Correct Positioning, Safety Issues Teaching Recipient: Patient Teaching Methods: Discussion Response to Teaching: Verbalize Understanding Time/GCodes Time In: 1000 Time Out: 1045 Total Billed Treatment Time: 45 Total Billed Treatment visit, Ex (15m) & FA x2 (30m) JESSICA VIRGEN PTA May 07, 2017 11:09
--- NOTE | 2017-05-07 11:45 | Speech Therapy Daily Note ---
Speech Daily Progress Note Subjective Date Seen by Provider: May 07, 2017 Time Seen by Provider: 08:15 The patient did not greet clinician upon entrance. The patient did open eyes and make eye contact, however, promptly closed eyes. The patient was provided medication prior to this clinician's session. Objective - The patient required maximum clinician cueing and consistent, constant redirection to task for participation in therapy on this date. The patient consistently closed eyes and turned away from the clinician. - Orientation: The patient did not respond to simple orientation information on this date regardless of presentation (open-ended, yes and no questions, identification, field of two). The patient was able to state her name on one occasion when prompted by the clinician. - Yes/No Questions: The patient did not respond to yes and no questions on this date. The patient did not locate the words yes or no on a sheet of paper when written by the clinician. - Confrontational Naming: The patient did not attempt to identify or name ADL objects in isolation or in a field of two regardless of maximum clinician verbal prompting. Assessment Assessment Current Status: Poor Progress Treatment Plan Continue Plan of Care Communication Comprehension: 2 Expression: 1 Social Cognition Social Interaction: 2 Problem Solvin Memory: 2 Speech Short Term Goals Short Term Goals Short Term Goals 1. The patient will identify items included in ADL activities with 80% accuracy in a field of two. 2. The patient will demonstrate accurate use of ADL items with 80% accuracy and mild clinician cueing. 3. The patient will follow one-step commands with 80% accuracy. Time Frame-STG: Two Weeks Speech Switchgear Repairer Goals Switchgear Repairer Goals The patient will demonstrate improvement with expressive and receptive language to increase functional communication in the least restrictive setting. Time Frame: Three Weeks Comprehension: 2 Expression: 2 Social Interaction: 3 Problem Solvin Memory: 3 Speech-Plan Treatment Plan Speech Therapy Treatment Plan: Continue Plan of Care Continue skilled speech pathology to target functional expressive and receptive language. Treatment Duration: Apr 29, 2017 # of days/week Five. Visits Per Week: Five. Minutes/Day (M-F): 30 Rehab Potential: Guarded (prior CVA) Safety Risks/Education Teaching Recipient: Patient Teaching Methods: Discussion Response to Teaching: Reinforcement Needed Education Topics Provided: Plan of Therapy, Progression Time Speech Therapy Time In: 08:15 Speech Therapy Time Out: 08:45 Total Billed Time: 30 Billed Treatment Time 1, MATTHIEU BRAVO May 07, 2017 11:45
--- NOTE | 2017-05-07 11:54 | Occupational Ther Daily Note ---
OT Current Status-Daily Note Subjective Pt alert, sitting in recliner. present in room. Pt just served lunch. Agreed to therapy. Mental Status/Objective Patient Orientation: Person, Place, Time, Situation Functional [place] Measure 0=Not Assessed/NA 4=Minimal Assistance 1=Total Assistance 5=Supervision or Setup 2=Maximal Assistance 6=Modified [place] 3=Moderate Assistance 7=Complete [place] ADL-Treatment Functional [place] Measure 0=Not Assessed/NA 4=Minimal Assistance 1=Total Assistance 5=Supervision or Setup 2=Maximal Assistance 6=Modified [place] 3=Moderate Assistance 7=Complete IndependenceIRFPAI Quality Coding Scale 6 Independent with activity with or without an assistive device 5 Patient requires set up or clean up by helper. Patient completes activity by themselves 4 Supervision or touching assist (CGA). [place] provide cues , steadying assist 3 The helper provides less than half the effort to complete the activity 2 The helper provides more than half the effort to complete the activity 1 Dependent. The helper does all the effort to complete an activity 7 Patient refused to complete or attempt activity 9 The patient did not perform the activity before the current illness or injury 88 Not attempted due to Medical conditions or safety concerns Other Treatment Pt requested to use the toilet. Pt ambulated with CGA using FWW to toilet and transferred using FWW with CGA. Pt held onto FWW while sitting down and pulled it back with her. Pt was able to pull pants down and hike pants up over hips with CGA. Pt declined to wash hands and used cleansing clothes. Pt set up for lunch then able to use utensils if needed but typically uses fingers. After therapy, pt sitting in recliner with call light/phone in reach. in room. All needs met in room with safety measures in place. OT Short Term Goals Short Term Goals Time Frame: May 07, 2017 Eating(FIM): 5 Grooming(FIM): 4 Bathing(FIM): 4 Upper Body Dressing(FIM): 4 Lower Body Dressing(FIM): 4 Toileting(FIM): 4 Transfers (B,C,W/C) (FIM): 5 Toilet/Commode Transfer(FIM): 4 Additional Short Term Goals: 2-Verbalize Understanding, 3-ImproveStrength/[place] 1=Demonstrate adherence to instructed precautions during ADL tasks. 2=Patient will verbalize/demonstrate understanding of assistive devices/ modifications for ADL. 3=Patient will improve strength/tolerance for activity to enable patient to perform ADL's. OT Associate Account Manager Goals Detention Goals Time Frame: May 21, 2017 Eating (FIM): 6 Eating (QC): 6 Groomin Oral Hygiene (QC): 5 Bathing(FIM): 5 Shower/Bathe Self (QC): 5 Upper Body Dressing(FIM): 5 Upper Body Dressing (QC): 5 Lower Body Dressing(FIM): 5 Lower Body Dressing (QC): 5 On/Off Footwear (QC): 5 Toileting(FIM): 5 Toileting Hygiene (QC): 5 Toilet/Commode Transfer(FIM): 5 Toilet/Commode Transfer (QC): 5 Shower Transfer(FIM): 5 Comprehension(FIM): 2 Expression (FIM): 2 Social Interaction(FIM): 3 Problem Solving(FIM): 3 Memory(FIM): 3 Additional Goals: 2-Verbalize Understanding, 3-ImproveStrength/[place] 1=Demonstrate adherence to instructed precautions during ADL tasks. 2=Patient will verbalize/demonstrate understanding of assistive devices/ modifications for ADL. 3=Patient will improve strength/tolerance for activity to enable patient to perform ADL's. OT Education/Plan Problem List/Assessment Pt would benefit from skilled OT to increase her independence in basic self care skills to allow her to safely return to her home to live with her and to decrease caregiver burden. Discharge Recommendations Plan/Recommendations: Continue POC Treatment Plan/Plan of Care Patient would benefit from OT for education, treatment and training to promote independence in ADL's, mobility, safety and/or upper extremity function for ADL' s. Plan of Care: ADL Retraining, Functional Mobility, Group Exercise/Act as Ind ( education, exercise, funct activity, communication, socialization), UE Funct Exercise/Act, UE Neuromus Re-Ed/Coord Treatment Duration: May 21, 2017 Visits Per Week: 10-11 Minutes/Day (M-F): 75-90 Minutes/Day (Sat/Anders): PRN Agreement: Yes Rehab Potential: Guarded (prior CVA) Time/GCodes Start Time: 11:20 Stop Time: 11:45 Total Time Billed (hr/min): 25 Billed Treatment Time 1 visit-FA 2 (25 min) HUSSEIN PERDOMO May 07, 2017 11:54
--- NOTE | 2017-05-07 15:10 | Therapy Group Daily Note ---
Therapy Daily Group Note Patient Education Topic Home Safety, Fall Prevention Exercises LE Seated Exercise, UE Exercise Other/Notes Pt was an attentive participant in OT/PT group. Her came to group with her and introduced her, helping her because of her expressive aphasia. She contributed to education/discussion on home safety and fall prevention and, at end of group, her was able to identify a change they will make at home to be safer. She also did seated UE and LE exercises, using both upper and lower extremities without needing to modify the exercises. Her took her back to the room, per w/c, all needs met. Start Time: 13:00 Stop Time: 14:00 Total Billed Treatment Time: 60 Total Billed Treatment visit, 60 minutes group STEVEN JONES OT May 07, 2017 15:10
[2017-05-07 17:35] VITALS: BP 149/74
[2017-05-07] MEDS: ATORVASTATIN 20 MG (LIPITOR) TABLET PO SCH (22:03)
[2017-05-07] MEDS: LATANOPROST 0.005% (XALATAN) OPHTH SOLN 2.5 ML OU SCH (22:08)
[2017-05-08] MEDS: LEVOTHYROXINE 75 MCG (LEVOTHROID) TABLET PO SCH (05:50)
[2017-05-08 06:29] VITALS: BP 126/69
[2017-05-08] MEDS: prednisoLONE 1% OPTH (PRED FORTE) 5 ML BTL OD SCH ×4 (08:21→20:28)
[2017-05-08] MEDS: CYCLOPENTOLATE 1% (CYCLOGYL) 2 ML DROPS OP SCH (08:39)
[2017-05-08] MEDS: TIMOLOL MALEATE 0.5% 5 ML (TIMOPTIC) BTL OU SCH ×2 (09:35→20:28)
[2017-05-08] MEDS: ZINC OXIDE 16% OINT (BUTT PASTE) 113 GM TUBE TOP SCH ×2 (10:21→20:29)
[2017-05-08] MEDS: BRIMONIDINE 0.2% (ALPHAGAN) OPHTH SOLN 5 ML BTL OU SCH ×3 (10:22→20:28)
[2017-05-08] MEDS: ATENOLOL 25 MG (TENORMIN) TAB PO SCH (10:22)
[2017-05-08] MEDS: APIXABAN 5 MG (ELIQUIS) TABLET PO SCH ×2 (10:24→20:28)
[2017-05-08] MEDS: DIGOXIN 0.125 MG (LANOXIN) TAB PO SCH (10:24)
[2017-05-08] MEDS: lisINopril 10 MG (PRINIVIL) TAB PO SCH (10:24)
[2017-05-08] MEDS: FOLIC ACID 1 MG TAB PO SCH ×2 (10:24→20:28)
[2017-05-08] MEDS: amLODIPine 5 MG (NORVASC) TAB PO SCH (10:24)
[2017-05-08] MEDS: GABAPENTIN 300 MG (NEURONTIN) CAP PO SCH ×2 (10:26→20:28)
--- NOTE | 2017-05-08 11:58 | Physical Therapy Daily Note ---
PT Daily Note-Current Subjective Pt agreeable. Pt c/o she is "cold" but denies pain. Pt excited to watch [place] today at 1:15pm Mental Status Patient Orientation: Person, Place, [place] Pt with min-moderate expressive aphasia at times and clear and appropriate at other times. Transfers Functional [place] Measure 0=Not Assessed/NA 4=Minimal Assistance 1=Total Assistance 5=Supervision or Setup 2=Maximal Assistance 6=Modified [place] 3=Moderate Assistance 7=Complete IndependenceIRFPAI Quality Coding Scale 6 Independent with activity with or without an assistive device 5 Patient requires set up or clean up by helper. Patient completes activity by themselves 4 Supervision or touching assist (CGA). [place] provide cues , steadying assist 3 The helper provides less than half the effort to complete the activity 2 The helper provides more than half the effort to complete the activity 1 Dependent. The helper does all the effort to complete an activity 7 Patient refused to complete or attempt activity 9 The patient did not perform the activity before the current illness or injury 88 Not attempted due to Medical conditions or safety concerns SBA transfers Gait Training Gait Assistive Device: FWW Pt amb with FWW and CGA x 200ft, stopping to rest as needed due to (R) LE fatigue. Pt able to ambulate clearing both feet nicely but fatigues quickly and walks with short shuffle steps. Pt able to correct with vc's. Exercises Seated Therapy Exercises: Ankle pumps, Long arc quads, Hip flexion Seated Reps: 15 Performed side stepping at humphries hand railing x 12ft each way Assessment Current Status: Good Progress Back to bedside chair with call light and all needs met. PT Short Term Goals Short Term Goals Time Frame: May 12, 2017 Transfers (B,C,W/C) (FIM): 5 Gait (FIM): 5 PT Fci Goals Gas Collection System Operator Goals PT Gas Collection System Operator Goals Time Frame: May 26, 2017 Transfers (B,C,W/C) (FIM): 6 Sit to Lying (QC): 6 Lying-Sitting on Side/Bed(QC): 6 Sit to Stand (QC): 6 Rollin Roll Left to Right (QC): 6 Chair/Gnc-ys-Ammkj Xfer(QC): 6 Car Transfer (QC): 5 Does the Patient Walk: Yes Gait (FIM): 6 Gait distance (FIM): 3=150 ft Walk 10 feet (QC): 6 Walk 10ft-Uneven Surface(QC): 6 Walk 50ft with 2 Turns (QC): 6 Walk 150 ft (QC): 6 Gait Level of Assist: 6 Gait Assistive Device: FWW Does the Pt use WC or Scooter?: No Stairs (FIM): 5 # of Steps: 8 1 Step (curb) (QC): 5 4 Steps (QC): 5 12 Steps (QC): 88 Picking up an Object (QC): 5 PT Plan Treatment/Plan Treatment Plan: Continue Plan of Care Treatment Plan: Bed Mobility, Education, Functional Activity [place], Functional Strength, Group Therapy, Gait, Safety, Therapeutic Exercise, Transfers Treatment Duration: May 26, 2017 Visits Per Week: 10-15 Minutes/Day (M-F): 75-90 Minutes/Day (Sat/Anders): prn Time/GCodes Time In: 1020 Time Out: 1100 Total Billed Treatment Time: 40 Total Billed Treatment 1, gait x 30min, Ther ex 10 min MINDY HURLEY CPTA May 08, 2017 11:58
[2017-05-08 17:42] VITALS: BP 144/68
[2017-05-08] MEDS: ATORVASTATIN 20 MG (LIPITOR) TABLET PO SCH (20:28)
[2017-05-08] MEDS: LATANOPROST 0.005% (XALATAN) OPHTH SOLN 2.5 ML OU SCH (20:28)
[2017-05-09 04:58] VITALS: BP 129/80
[2017-05-09] MEDS: LEVOTHYROXINE 75 MCG (LEVOTHROID) TABLET PO SCH (05:27)
[2017-05-09] MEDS: APIXABAN 5 MG (ELIQUIS) TABLET PO SCH ×2 (08:46→20:59)
[2017-05-09] MEDS: lisINopril 10 MG (PRINIVIL) TAB PO SCH (08:46)
[2017-05-09] MEDS: amLODIPine 5 MG (NORVASC) TAB PO SCH (08:46)
[2017-05-09] MEDS: FOLIC ACID 1 MG TAB PO SCH ×2 (08:46→20:59)
[2017-05-09] MEDS: DIGOXIN 0.125 MG (LANOXIN) TAB PO SCH (08:47)
[2017-05-09] MEDS: ATENOLOL 25 MG (TENORMIN) TAB PO SCH (08:47)
[2017-05-09] MEDS: GABAPENTIN 300 MG (NEURONTIN) CAP PO SCH ×2 (08:47→20:59)
[2017-05-09] MEDS: ZINC OXIDE 16% OINT (BUTT PASTE) 113 GM TUBE TOP SCH ×2 (08:51→21:00)
[2017-05-09] MEDS: TIMOLOL MALEATE 0.5% 5 ML (TIMOPTIC) BTL OU SCH ×2 (08:51→20:58)
[2017-05-09] MEDS: BRIMONIDINE 0.2% (ALPHAGAN) OPHTH SOLN 5 ML BTL OU SCH ×3 (08:52→20:59)
[2017-05-09] MEDS: CYCLOPENTOLATE 1% (CYCLOGYL) 2 ML DROPS OP SCH (08:52)
[2017-05-09] MEDS: prednisoLONE 1% OPTH (PRED FORTE) 5 ML BTL OD SCH ×4 (08:53→20:59)
[2017-05-09 18:01] VITALS: BP 174/89
[2017-05-09] MEDS: LATANOPROST 0.005% (XALATAN) OPHTH SOLN 2.5 ML OU SCH (20:58)
[2017-05-09] MEDS: ATORVASTATIN 20 MG (LIPITOR) TABLET PO SCH (20:59)
[2017-05-10 05:05] VITALS: BP 118/74
[2017-05-10] MEDS: LEVOTHYROXINE 75 MCG (LEVOTHROID) TABLET PO SCH (05:47)
[2017-05-10] MEDS: DIGOXIN 0.125 MG (LANOXIN) TAB PO SCH (08:44)
[2017-05-10] MEDS: APIXABAN 5 MG (ELIQUIS) TABLET PO SCH ×2 (08:44→21:05)
[2017-05-10] MEDS: lisINopril 10 MG (PRINIVIL) TAB PO SCH (08:44)
[2017-05-10] MEDS: FOLIC ACID 1 MG TAB PO SCH ×2 (08:44→21:05)
[2017-05-10] MEDS: ATENOLOL 25 MG (TENORMIN) TAB PO SCH (08:44)
[2017-05-10] MEDS: amLODIPine 5 MG (NORVASC) TAB PO SCH (08:44)
[2017-05-10] MEDS: GABAPENTIN 300 MG (NEURONTIN) CAP PO SCH ×2 (08:44→21:05)
[2017-05-10] MEDS: BRIMONIDINE 0.2% (ALPHAGAN) OPHTH SOLN 5 ML BTL OU SCH ×3 (08:45→21:02)
[2017-05-10] MEDS: TIMOLOL MALEATE 0.5% 5 ML (TIMOPTIC) BTL OU SCH ×2 (08:45→21:02)
[2017-05-10] MEDS: CYCLOPENTOLATE 1% (CYCLOGYL) 2 ML DROPS OP SCH (08:45)
[2017-05-10] MEDS: prednisoLONE 1% OPTH (PRED FORTE) 5 ML BTL OD SCH ×4 (08:45→21:02)
[2017-05-10] MEDS: ZINC OXIDE 16% OINT (BUTT PASTE) 113 GM TUBE TOP SCH ×2 (08:46→21:05)
--- NOTE | 2017-05-10 10:49 | Progress Note-Hospitalist ---
ROSALINA DELONG MEDICAL STUDENT 05/10/17 1049: Progress Note HPI/CC on Admission CC: Stroke HPI: This is a 81 [address] Enciso in [place] who presented with the above. Dr. Enciso Review: Pt came in last week with three new infarcts so we consulted neurology, they recommended holding Eliquis for about two weeks. Eliquis was put on hold day 7. Pharmacy Review: We are still figuring out why the Eliquis is on hold from Dr. Enciso. We are also trying to figure out if she was on Eliquis at [facility]. There was an order for it, but no scripts written. Pt was DC April [address] on Eliquis Patient Interview: Pt is able to make sounds, but cannot form words. She seems to understand what is said to her. Plan: Monitor pt Scribed by Eli Carmona under the direct supervision of Dr. Briggs. Progress Notes/Assess & Plan Date Seen 05/10/17 Time Seen by Provider: 10:15 Admission Dx/Process Today patient was alert, but with significant aphasia due to stroke. Interview was limited. Nurse claimed that the patient was eating well, ambulating well and speech improving. CECILLE BRIGGS DO 05/10/17 1057: Progress Note Progress Notes/Assess & Plan Time Seen by Provider: 10:30 Diagonsis/Assessment & Plan Patient doing somewhat better Restarted anticoagulation last week No pain is reported Pleasant, oriented times around 2, dysarthric IRRegular rate and rhythm clear to auscultation bilaterally continue rehabilitation ROSALINA DELONG MEDICAL STUDENT May 10, 2017 10:49 CECILLE BRIGGS DO May 10, 2017 10:57
--- NOTE | 2017-05-10 10:49 | Occupational Ther Daily Note ---
OT Current Status-Daily Note Subjective Pt alert, sitting in recliner. Pt agreed to therapy. No c/o pain. Mental Status/Objective Patient Orientation: Person, Place, Non-Verbal/Aphasic, Situation Functional [place] Measure 0=Not Assessed/NA 4=Minimal Assistance 1=Total Assistance 5=Supervision or Setup 2=Maximal Assistance 6=Modified [place] 3=Moderate Assistance 7=Complete [place] ADL-Treatment Pt required encouragement to complete shower today. Functional [place] Measure 0=Not Assessed/NA 4=Minimal Assistance 1=Total Assistance 5=Supervision or Setup 2=Maximal Assistance 6=Modified [place] 3=Moderate Assistance 7=Complete IndependenceIRFPAI Quality Coding Scale 6 Independent with activity with or without an assistive device 5 Patient requires set up or clean up by helper. Patient completes activity by themselves 4 Supervision or touching assist (CGA). [place] provide cues , steadying assist 3 The helper provides less than half the effort to complete the activity 2 The helper provides more than half the effort to complete the activity 1 Dependent. The helper does all the effort to complete an activity 7 Patient refused to complete or attempt activity 9 The patient did not perform the activity before the current illness or injury 88 Not attempted due to Medical conditions or safety concerns Eating (FIM): 5 (Set up to eat. Pt is able to use utensils to feed self though prefers to use fingers to eat with.) Eating (QC): 5 (Set up to eat. Pt is able to use utensils to feed self though prefers to use fingers to eat with.) Grooming (FIM): 5 (SBA in standing when completing oral care and hair. ) Oral Hygiene (QC): 4 (SBA in standing when completing oral care and hair. ) Bathing (FIM): 5 (After set up, using shower seat, grabbars and hand held shower pt is able to complete bathing with SBA and cues to initiate using wash clothe and soap.) Bathing Location: L Arm, R Arm, L Upper Leg, R Upper Leg, L Lower Leg ( including foot), R Lower Leg (including foot), Chest, Abdomen, Buttocks, Perineal Area Shower/Bathe Self (QC): 4 (After set up, using shower seat, grabbars and hand held shower pt is able to complete bathing with SBA and cues to initiate using wash clothe and soap.) Upper Body (FIM): 5 (After set up, pt is able to complete upper body dressing.) Upper Body Dressing (QC): 5 (After set up, pt is able to complete upper body dressing.) Lower Body Dressing (FIM): 4 (Pt demonstrates ability to don/doff clothing by self with SBA for hiking pants over hips. Pt is inconsistent with donning pants over feet at times will needs assistance.) Lower Body Dressing (QC): 3 (Pt demonstrates ability to don/doff clothing by self with SBA for hiking pants over hips. Pt is inconsistent with donning pants over feet at times will needs assistance.) On/Off Footwear (QC): 5 (Pt able to complete after set up.) Toileting (FIM): 5 (Pt able to complete toileting with SBA.) Toileting Hygiene (QC): 4 (Pt able to complete toileting with SBA.) Transfers (B, C, W/C) (FIM): 5 (Pt able to complete stand pivot transfers with SBA.) Toilet/Commode Transfer (FIM): 5 (Pt able to complete using FWW transfers with SBA.) Toilet Transfer (QC): 4 (Pt able to complete stand using FWW with SBA.) Shower Transfer(FIM): 5 (Using FWW, shower seat and grabbars with SBA to transfer into shower.) Other Treatment Pt was able to follow directions and reach up and push elevator buttons with each arm. Then pt was able to complete UE AROM arc with cues for which arm to use then completed nut/bolt BUE task with physical/verbal cues to complete appropriately. After therapy, pt sitting in recliner with call light/phone in reach. All needs met in room. OT Short Term Goals Short Term Goals Time Frame: May 07, 2017 Eating(FIM): 5 Grooming(FIM): 4 Bathing(FIM): 4 Upper Body Dressing(FIM): 4 Lower Body Dressing(FIM): 4 Toileting(FIM): 4 Transfers (B,C,W/C) (FIM): 5 Toilet/Commode Transfer(FIM): 4 Additional Short Term Goals: 2-Verbalize Understanding, 3-ImproveStrength/[place] 1=Demonstrate adherence to instructed precautions during ADL tasks. 2=Patient will verbalize/demonstrate understanding of assistive devices/ modifications for ADL. 3=Patient will improve strength/tolerance for activity to enable patient to perform ADL's. OT Burr Sander Goals Burr Sander Goals Time Frame: May 21, 2017 Eating (FIM): 6 (not met) Eating (QC): 6 (not met) Groomin (05/10/2017) Oral Hygiene (QC): 5 (not met) Bathing(FIM): 5 (05/10/2017) Shower/Bathe Self (QC): 5 (not met) Upper Body Dressing(FIM): 5 (05/10/2017) Upper Body Dressing (QC): 5 (05/10/2017) Lower Body Dressing(FIM): 5 (not met) Lower Body Dressing (QC): 5 (not met) On/Off Footwear (QC): 5 (05/10/2017) Toileting(FIM): 5 (05/10/2017) Toileting Hygiene (QC): 5 (not met) Toilet/Commode Transfer(FIM): 5 (05/10/2017) Toilet/Commode Transfer (QC): 5 (not met) Shower Transfer(FIM): 5 (05/10/2017) Comprehension(FIM): 2 (05/10/2017) Expression (FIM): 2 (05/10/2017) Social Interaction(FIM): 3 (05/10/2017) Problem Solving(FIM): 3 (05/10/2017) Memory(FIM): 3 (05/10/2017) Additional Goals: 2-Verbalize Understanding, 3-ImproveStrength/[place] 1=Demonstrate adherence to instructed precautions during ADL tasks. 2=Patient will verbalize/demonstrate understanding of assistive devices/ modifications for ADL. 3=Patient will improve strength/tolerance for activity to enable patient to perform ADL's. OT Education/Plan Problem List/Assessment Pt would benefit from skilled OT to increase her independence in basic self care skills to allow her to safely return to her home to live with her and to decrease caregiver burden. Discharge Recommendations Plan/Recommendations: Continue POC Treatment Plan/Plan of Care Patient would benefit from OT for education, treatment and training to promote independence in ADL's, mobility, safety and/or upper extremity function for ADL' s. Plan of Care: ADL Retraining, Functional Mobility, Group Exercise/Act as Ind ( education, exercise, funct activity, communication, socialization), UE Funct Exercise/Act, UE Neuromus Re-Ed/Coord Treatment Duration: May 21, 2017 Visits Per Week: 10-11 Minutes/Day (M-F): 75-90 Minutes/Day (Sat/Anders): PRN Agreement: Yes Rehab Potential: Guarded (prior CVA) Time/GCodes Start Time: 09:00 Stop Time: 10:30 Total Time Billed (hr/min): 90 Billed Treatment Time 1 visit-ADL 4 (60 min) FA 1 (15 min) EX 1 (15 min) HUSSEIN PERDOMO May 10, 2017 10:49
--- NOTE | 2017-05-10 11:44 | Physical Therapy Daily Note ---
PT Daily Note-Current Subjective Pt is sitting in recliner upon arrival. Pt seems a little nervous/concerned this morning. Pt agreed to PT. Mental Status Patient Orientation: Person, Non-Verbal/Aphasic Transfers Functional [place] Measure 0=Not Assessed/NA 4=Minimal Assistance 1=Total Assistance 5=Supervision or Setup 2=Maximal Assistance 6=Modified [place] 3=Moderate Assistance 7=Complete IndependenceIRFPAI Quality Coding Scale 6 Independent with activity with or without an assistive device 5 Patient requires set up or clean up by helper. Patient completes activity by themselves 4 Supervision or touching assist (CGA). [place] provide cues , steadying assist 3 The helper provides less than half the effort to complete the activity 2 The helper provides more than half the effort to complete the activity 1 Dependent. The helper does all the effort to complete an activity 7 Patient refused to complete or attempt activity 9 The patient did not perform the activity before the current illness or injury 88 Not attempted due to Medical conditions or safety concerns Transfers (B, C, W/C) (FIM): 4 Scootin Rollin Roll Left to Right (QC): 5 Supine to/from Sit: 4 Sit to/from Stand: 5 Sit to Lying (QC): 4 Sit to Stand (QC): 5 Chair/Syr-av-Tpugp Xfer(QC): 5 Bed to/from Chair: 5 Pt's car was no available for car transfer so will capture score upon discharge. Weight Bearing Weight Bearing Restriction: Full Weight Bearing Location Restriction: LE Bilateral Gait Training Does the Patient Walk?: Yes Gait (FIM): 5 Distance (FIM): 3=150 ft Distance: 150' Walk 10 feet (QC): 5 Walk 50 ft with 2 Turns(QC): 5 Walk 150 ft (QC): 5 Walking 10ft/uneven surface-QC: 5 Gait Level of Assist: 5 Gait Persons Needed: 1 Gait Assistive Device: FWW Pt walks with a slow and shuffling gait pattern. Pt drags R foot when advancing and PT gives VC and pt will self-correct for short time. Wheelchair Training Does the Pt Use a Wheelchair?: No Stair Training Stair Training: Handrails/: 2 handrails Stairs (FIM): 2 #of Steps: 4 1 Step (curb) (QC): 4 4 Steps (QC): 4 12 Steps (QC): 88 Stairs: Pattern: Step to Level of Assist: 4 Balance Picking up an Object (QC): 88 Special Test Comments It was not safe to perform a bending over activity due to pt's lack of balance. Exercises Seated Therapy Exercises: Ankle pumps, Long arc quads, Hip flexion, Kicking activity Seated Reps: 15 Treatments Pt was anxious at start of tx. Pt transferred from recliner to standing using FWW at [facility]. Pt ambulated in hallway using FWW at [facility] with VC for foot placement to prevent foot drag. Pt completed balance activities including 1 set of stairs, walking on varying surface for at least 10' and transfers. Pt completed bed mobility and transfers before transferring to recliner at end of tx to rest with all needs met. Assessment Current Status: Fair Progress Pt is a little more confused than usual. Pt completes all tasks but fatigues easy and needs rest breaks due to poor activity tolerance. PT Short Term Goals Short Term Goals Time Frame: May 12, 2017 Transfers (B,C,W/C) (FIM): 5 Gait (FIM): 5 PT Wire Mesh Knitter Goals Wire Mesh Knitter Goals PT Wire Mesh Knitter Goals Time Frame: May 26, 2017 Transfers (B,C,W/C) (FIM): 6 Sit to Lying (QC): 6 Lying-Sitting on Side/Bed(QC): 6 Sit to Stand (QC): 6 Rollin Roll Left to Right (QC): 6 Chair/Dot-xn-Xgzhc Xfer(QC): 6 Car Transfer (QC): 5 Does the Patient Walk: Yes Gait (FIM): 6 Gait distance (FIM): 3=150 ft Walk 10 feet (QC): 6 Walk 10ft-Uneven Surface(QC): 6 Walk 50ft with 2 Turns (QC): 6 Walk 150 ft (QC): 6 Gait Level of Assist: 6 Gait Assistive Device: FWW Does the Pt use WC or Scooter?: No Stairs (FIM): 5 # of Steps: 8 1 Step (curb) (QC): 5 4 Steps (QC): 5 12 Steps (QC): 88 Picking up an Object (QC): 5 PT Plan Problem List Problem List: Activity Tolerance, Functional Strength, Safety, Balance, Gait Treatment/Plan Treatment Plan: Continue Plan of Care Treatment Plan: Bed Mobility, Education, Functional Activity [place], Functional Strength, Group Therapy, Gait, Safety, Therapeutic Exercise, Transfers Treatment Duration: May 26, 2017 Visits Per Week: 10-15 Minutes/Day (M-F): 75-90 Minutes/Day (Sat/Anders): prn Safety Risks/Education Patient Education: Gait Training, Transfer Techniques, Correct Positioning, Safety Issues Teaching Recipient: Patient Teaching Methods: Demonstration Response to Teaching: Reinforcement Needed Time/GCodes Time In: 1030 Time Out: 1115 Total Billed Treatment Time: 45 Total Billed Treatment visit, GT (15m) & FA x2 (30m) JESSICA VIRGEN PACK PRESS OPERATOR May 10, 2017 11:44
--- NOTE | 2017-05-10 13:53 | Speech Therapy Daily Note ---
Speech Daily Progress Note Subjective Date Seen by Provider: May 10, 2017 Time Seen by Provider: 08:30 The patient was sitting upright in recliner upon entrance. The patient did not attempt to greet clinician, closing eyes and turning her head in the opposite direction. The patient was agreeable to speech and language therapy via head nod. Objective - Yes and No (Orientation): The patient was able to state her first name when asked by the clinician. The patient was unable to state or identify the month, city, or year via yes and no questions (head nods). - One Step Directions: The patient demonstrated 80% accuracy with simple, one- step directions. - Two Step Directions: The patient demonstrated less than 30% accuracy with simple, two-step directions. - Repetition: The patient was unable to repeat single words or phrases. - Confrontational Naming: The patient was able to identify a spoon one out of four attempts. The patient was unable to identify any additional ADL items in isolation or a field of two. - The patient demonstrated increased frustration and agitation with lunch arrival. The speech pathologist was asked to return to the room by the patient' s nurse to aid in deciphering the patient's message. The clinician was able to understand the patient wished for different food items. With choices provided by the clinician, the clinician was able to identify what the patient wished to consume for lunch. Assessment Assessment Current Status: Poor Progress Treatment Plan Discontinue ST (Due to lack of progress, the patient will discharge at this time.) Communication Comprehension: 2 Expression: 1 Social Cognition Social Interaction: 2 Problem Solvin Memory: 2 Speech Short Term Goals Short Term Goals Short Term Goals 1. The patient will identify items included in ADL activities with 80% accuracy in a field of two. 2. The patient will demonstrate accurate use of ADL items with 80% accuracy and mild clinician cueing. 3. The patient will follow one-step commands with 80% accuracy. Time Frame-STG: Two Weeks Speech Fpc Goals Trouble Lineman Goals The patient will demonstrate improvement with expressive and receptive language to increase functional communication in the least restrictive setting. Time Frame: Three Weeks Comprehension: 2 (05/10/2017) Expression: 2 (05/10/2017) Social Interaction: 3 (05/10/2017) Problem Solvin (05/10/2017) Memory: 3 (05/10/2017) Speech-Plan Treatment Plan Speech Therapy Treatment Plan: Discontinue ST The patient will discharge from skilled speech services at this time. Treatment Duration: Apr 29, 2017 # of days/week Five. Visits Per Week: Five. Minutes/Day (M-F): 30 Rehab Potential: Guarded (prior CVA) Safety Risks/Education Teaching Recipient: Patient Teaching Methods: Discussion Response to Teaching: Unable to Comprehend Education Topics Provided: Plan of Care, Recommendations Time Speech Therapy Time In: 08:30 Speech Therapy Time Out: 09:00 Total Billed Time: 45 Billed Treatment Time 1RHETT (8:30 to 9:00 and 11:45 to 12:00) MATTHIEU SALMON May 10, 2017 13:53
--- NOTE | 2017-05-10 13:58 | Therapy Team Discharge Summary ---
Therapy Discharge Summary Discharge Recommendations Date of Discharge 05/11/2017 Therapy D/C Recommendations: Physical Therapy Home Care Speech-Language Pathology The patient was recently admitted to [facility] following extension of a previous CVA. Upon admission, the patient demonstrated significant deficits with expressive and receptive communication (severe). Skilled speech pathology included increased accuracy of yes/no responses, accurate sequencing and use of ADL items, identification of ADL items, and repetition of bilabial single syllable words. The patient did not reach goals placed by speech pathology and often grew frustrated with therapy tasks. At this time, the patient will be discharged from speech services. Speech recommends a home therapy program is able and available. PT Computer Programmer Analyst Goals Intermediate Goals PT Intermediate Goals Time Frame: May 26, 2017 Transfers (B,C,W/C) (FIM): 6 Roll Left to Right (QC): 6 Sit to Lying (QC): 6 Lying-Sitting on Side/Bed(QC): 6 Sit to Stand (QC): 6 Chair/Inl-fm-Czidd Xfer(QC): 6 Car Transfer (QC): 5 Does the Patient Walk: Yes Gait (FIM): 6 Gait distance (FIM): 3=150 ft Walk 10 feet (QC): 6 Walk 10ft-Uneven Surface(QC): 6 Walk 50ft with 2 Turns (QC): 6 Walk 150 ft (QC): 6 Gait Level of Assist: 6 Gait Assistive Device: FWW Does the Pt use WC or Scooter?: No Stairs (FIM): 5 # of Steps: 8 1 Step (curb) (QC): 5 4 Steps (QC): 5 12 Steps (QC): 88 Picking up an Object (QC): 5 OT Intermediate Goals Computer Programmer Analyst Goals Time Frame: May 21, 2017 Eating (FIM): 6 (not met) Eating (QC): 6 (not met) Oral Hygiene (QC): 5 (not met) Grooming(FIM): 5 (05/10/2017) Bathing(FIM): 5 (05/10/2017) Shower/Bathe Self (QC): 5 (not met) Upper Body Dressing(FIM): 5 (05/10/2017) Upper Body Dressing (QC): 5 (05/10/2017) Lower Body Dressing(FIM): 5 (not met) Lower Body Dressing (QC): 5 (not met) On/Off Footwear (QC): 5 (05/10/2017) Toileting(FIM): 5 (05/10/2017) Toileting Hygiene (QC): 5 (not met) Toilet/Commode Transfer(FIM): 5 (05/10/2017) Toilet/Commode Transfer (QC): 5 (not met) Shower Transfer(FIM): 5 (05/10/2017) Comprehension(FIM): 2 (05/10/2017) Expression (FIM): 2 (05/10/2017) Social Interaction(FIM): 3 (05/10/2017) Problem Solving(FIM): 3 (05/10/2017) Memory(FIM): 3 (05/10/2017) Additional Goals: 2-Verbalize Understanding, 3-ImproveStrength/[place] 1=Demonstrate adherence to instructed precautions during ADL tasks. 2=Patient will verbalize/demonstrate understanding of assistive devices/ modifications for ADL. 3=Patient will improve strength/tolerance for activity to enable patient to perform ADL's. Speech Intermediate Goals Intermediate Goals The patient will demonstrate improvement with expressive and receptive language to increase functional communication in the least restrictive setting. Time Frame: Three Weeks Comprehension: 2 (MET) Expression: 2 (NOT MET) Social Interaction: 3 (NOT MET) Problem Solvin (NOT MET) Memory: 3 (NOT MET) MATTHIEU SALMON May 10, 2017 13:58
[2017-05-10 18:40] VITALS: BP 148/76
--- NOTE | 2017-05-10 20:20 | PM & R (SOAP) Progress Note ---
Subjective Time Seen by Provider: 20:00 Subjective/Events-last exam Patient was seen in her room this evening Her affect appears a bit better with antidepressant on board Patient min assist for transfers Objective Exam Last Set of Vital Signs Vital Signs Date Time Temp Pulse Resp B/P (MAP) Pulse Ox O2 Delivery O2 Flow Rate FiO2 05/10/17 18:40 148/76 05/10/17 18:29 99.1 60 18 96 Room Air Capillary Refill : Less Than 3 Seconds I&O Intake and Output 05/10/17 00:00 Intake Total 1150 ml Balance 1150 ml Intake Oral 1150 ml # Voids 8 General: Alert, Cooperative, No Acute Distress HEENT: Atraumatic, PERRLA, EOMI, Mucous Memb Moist/[place] Neck: Supple, No JVD Lungs: Clear to Auscultation Heart: Other (irregular) Abdomen: Normal Bowel Sounds, Soft Extremities: No Edema Neuro: Other (RT HP and aphasia) Psych/Mental Status: Other (flat affect) Assessment/Plan Assessment 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 Chronic a FIB controlled with meds OAC with Eliquis currently on hold will f/u re resuming-on hold for another week Hypokalemia-replaced HTN controlled RA on methotrexate weekly with post surgical chages to feet and Deformities of both hands Glaucoma on eyedrops Reactive depression Plan Continue PT/OT/ST Appreciate ST Note-Discussed case with earlier this week Replaced K-rechecked labs now WNL 05-04-17 F/U with Hospitalist service re resuming Eliquis-done Discussed case with DR Otto earlier during stay re Team Conference held 05/05/17 See report for full functional update and POC and ELOS Started Celexa fro depression last week apears a bit improved Discharge remains set for tomorrow 05/11/17 . JESSI JONES MD May 10, 2017 20:20
[2017-05-10] MEDS: LATANOPROST 0.005% (XALATAN) OPHTH SOLN 2.5 ML OU SCH (21:04)
[2017-05-10] MEDS: ATORVASTATIN 20 MG (LIPITOR) TABLET PO SCH (21:05)
[2017-05-11 05:50] VITALS: BP_SYST 133; BP_SYST 135; BP_DIAS 62; BP_DIAS 83
[2017-05-11] MEDS: LEVOTHYROXINE 75 MCG (LEVOTHROID) TABLET PO SCH (06:39)
[2017-05-11] MEDS ORDERED: CITA20TA7 PO (07:26)
[2017-05-11] MEDS ORDERED: ZINC28PA TOP (07:26)
[2017-05-11] MEDS ORDERED: AMLO5TAB2 PO (07:26)
--- NOTE | 2017-05-11 07:29 | PM & R (SOAP) Progress Note ---
Subjective Time Seen by Provider: 07:15 Subjective/Events-last exam Patient was seen in her room this AM Discussed case with staff Patients family willing to take patient home with them and discharge set for today Patient near Prior level of function. Objective Exam Last Set of Vital Signs Vital Signs Date Time Temp Pulse Resp B/P (MAP) Pulse Ox O2 Delivery O2 Flow Rate FiO2 05/11/17 05:50 98.3 72 18 133/83 95 Room Air Capillary Refill : Less Than 3 Seconds I&O Intake and Output 05/11/17 00:00 Intake Total 1480 ml Balance 1480 ml Intake Oral 1480 ml # Voids 9 # Bowel Movements 3 General: Alert, Cooperative, No Acute Distress HEENT: Atraumatic, PERRLA, EOMI, Mucous Memb Moist/[place] Neck: Supple, No JVD Lungs: Clear to Auscultation Heart: Other (irregular) Abdomen: Normal Bowel Sounds, Soft Extremities: No Edema Neuro: Other (RT HP and aphasia) Psych/Mental Status: Other (flat affect) Assessment/Plan Assessment 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 JESSI JONES MD May 11, 2017 07:29
[2017-05-11] MEDS: CYCLOPENTOLATE 1% (CYCLOGYL) 2 ML DROPS OP SCH (08:19)
[2017-05-11] MEDS: BRIMONIDINE 0.2% (ALPHAGAN) OPHTH SOLN 5 ML BTL OU SCH (08:19)
[2017-05-11] MEDS: TIMOLOL MALEATE 0.5% 5 ML (TIMOPTIC) BTL OU SCH (08:19)
[2017-05-11] MEDS: prednisoLONE 1% OPTH (PRED FORTE) 5 ML BTL OD SCH (08:19)
[2017-05-11] MEDS: APIXABAN 5 MG (ELIQUIS) TABLET PO SCH (08:19)
[2017-05-11] MEDS: amLODIPine 5 MG (NORVASC) TAB PO SCH (08:20)
[2017-05-11] MEDS: GABAPENTIN 300 MG (NEURONTIN) CAP PO SCH (08:20)
[2017-05-11] MEDS: ATENOLOL 25 MG (TENORMIN) TAB PO SCH (08:20)
[2017-05-11] MEDS: FOLIC ACID 1 MG TAB PO SCH (08:20)
[2017-05-11] MEDS: DIGOXIN 0.125 MG (LANOXIN) TAB PO SCH (08:20)
[2017-05-11] MEDS: ZINC OXIDE 16% OINT (BUTT PASTE) 113 GM TUBE TOP SCH (08:20)
[2017-05-11] MEDS: lisINopril 10 MG (PRINIVIL) TAB PO SCH (08:20)
[2017-05-11] MEDS: METHOTREXATE 2.5 MG TAB PO SCH (08:24)
[2017-05-11 11:40] VITALS: BP 129/81
--- NOTE | 2017-05-11 16:10 | Therapy Team Discharge Summary ---
Therapy Discharge Summary Discharge Recommendations Date of Discharge May 11, 2017 at 11:41 Therapy D/C Recommendations: Physical Therapy Home Care Physical Therapy Patient came to rehab following a CVA. Upon admission patient performed bed mobility and transfers with Yen/CGA, ambulated 50' with a rolling walker with CGA, and went up and down 1 step using a rolling walker with CGA. Patient has been performing bed mobility and transfer training, balance and endurance training, functional strengthening, stair training, gait training, and education. 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 Now, patient performs bed mobility and transfers with SBA except for min A needed to go from sitting to lying down, she ambulates 150' with a rolling walker with SBA (including 50' with at least 2 turns of 90 degrees), and can go up and down 4 steps using 2 handrails with CGA. Patient has been discharged from this facility and will be discharged from PT at this time. PT Media Manager Goals Usp Goals PT Usp Goals Time Frame: May 26, 2017 Transfers (B,C,W/C) (FIM): 6 Roll Left to Right (QC): 6 Sit to Lying (QC): 6 Lying-Sitting on Side/Bed(QC): 6 Sit to Stand (QC): 6 Chair/Eoo-vc-Azwev Xfer(QC): 6 Car Transfer (QC): 5 Does the Patient Walk: Yes Gait (FIM): 6 Gait distance (FIM): 3=150 ft Walk 10 feet (QC): 6 Walk 10ft-Uneven Surface(QC): 6 Walk 50ft with 2 Turns (QC): 6 Walk 150 ft (QC): 6 Gait Level of Assist: 6 Gait Assistive Device: FWW Does the Pt use WC or Scooter?: No Stairs (FIM): 5 # of Steps: 8 1 Step (curb) (QC): 5 4 Steps (QC): 5 12 Steps (QC): 88 Picking up an Object (QC): 5 OT Media Manager Goals Usp Goals Time Frame: May 21, 2017 Eating (FIM): 6 (not met) Eating (QC): 6 (not met) Oral Hygiene (QC): 5 (not met) Grooming(FIM): 5 (05/10/2017) Bathing(FIM): 5 (05/10/2017) Shower/Bathe Self (QC): 5 (not met) Upper Body Dressing(FIM): 5 (05/10/2017) Upper Body Dressing (QC): 5 (05/10/2017) Lower Body Dressing(FIM): 5 (not met) Lower Body Dressing (QC): 5 (not met) On/Off Footwear (QC): 5 (05/10/2017) Toileting(FIM): 5 (05/10/2017) Toileting Hygiene (QC): 5 (not met) Toilet/Commode Transfer(FIM): 5 (05/10/2017) Toilet/Commode Transfer (QC): 5 (not met) Shower Transfer(FIM): 5 (05/10/2017) Comprehension(FIM): 2 (MET) Expression (FIM): 2 (NOT MET) Social Interaction(FIM): 3 (NOT MET) Problem Solving(FIM): 3 (NOT MET) Memory(FIM): 3 (NOT MET) Additional Goals: 2-Verbalize Understanding, 3-ImproveStrength/[place] 1=Demonstrate adherence to instructed precautions during ADL tasks. 2=Patient will verbalize/demonstrate understanding of assistive devices/ modifications for ADL. 3=Patient will improve strength/tolerance for activity to enable patient to perform ADL's. Speech Usp Goals Media Manager Goals The patient will demonstrate improvement with expressive and receptive language to increase functional communication in the least restrictive setting. Time Frame: Three Weeks Comprehension: 2 (MET) Expression: 2 (NOT MET) Social Interaction: 3 (NOT MET) Problem Solvin (NOT MET) Memory: 3 (NOT MET) RETA PENA PT May 11, 2017 16:10
--- NOTE | 2017-05-12 15:59 | Therapy Team Discharge Summary ---
Therapy Discharge Summary Discharge Recommendations Date of Discharge May 11, 2017 at 11:41 Therapy D/C Recommendations: Physical Therapy Home Care Occupational Therapy Pt was seen for skilled OT to increase her independence in basic self care to allow her to safely return home to live with her and to decrease caregiver burden. On admission she needed min assist for eating, grooming, bathing, lower body dressing, toilet transfers, and shower transfers; setup or supervision for upper body dressing and toileting. By discharge she had improved to setup for eating, upper body dressing; supervision for grooming, bathing, toileting, toilet transfer and shower transfer; and min assist lower body dressing. equipment used included FWW, shower bench, grab bars, hand held shower. See tx plan for goals met. Recommend continued home health OT. DC OT PT Custodial Goals Custodial Goals PT Computer Graphic Artist Goals Time Frame: May 26, 2017 Transfers (B,C,W/C) (FIM): 6 Roll Left to Right (QC): 6 Sit to Lying (QC): 6 Lying-Sitting on Side/Bed(QC): 6 Sit to Stand (QC): 6 Chair/Tbr-ia-Usros Xfer(QC): 6 Car Transfer (QC): 5 Does the Patient Walk: Yes Gait (FIM): 6 Gait distance (FIM): 3=150 ft Walk 10 feet (QC): 6 Walk 10ft-Uneven Surface(QC): 6 Walk 50ft with 2 Turns (QC): 6 Walk 150 ft (QC): 6 Gait Level of Assist: 6 Gait Assistive Device: FWW Does the Pt use WC or Scooter?: No Stairs (FIM): 5 # of Steps: 8 1 Step (curb) (QC): 5 4 Steps (QC): 5 12 Steps (QC): 88 Picking up an Object (QC): 5 OT Custodial Goals Computer Graphic Artist Goals Time Frame: May 21, 2017 Eating (FIM): 6 (not met) Eating (QC): 6 (not met) Oral Hygiene (QC): 5 (not met) Grooming(FIM): 5 (05/10/2017) Bathing(FIM): 5 (05/10/2017) Shower/Bathe Self (QC): 5 (not met) Upper Body Dressing(FIM): 5 (05/10/2017) Upper Body Dressing (QC): 5 (05/10/2017) Lower Body Dressing(FIM): 5 (not met) Lower Body Dressing (QC): 5 (not met) On/Off Footwear (QC): 5 (05/10/2017) Toileting(FIM): 5 (05/10/2017) Toileting Hygiene (QC): 5 (not met) Toilet/Commode Transfer(FIM): 5 (05/10/2017) Toilet/Commode Transfer (QC): 5 (not met) Shower Transfer(FIM): 5 (05/10/2017) Comprehension(FIM): 2 (MET) Expression (FIM): 2 (NOT MET) Social Interaction(FIM): 3 (NOT MET) Problem Solving(FIM): 3 (NOT MET) Memory(FIM): 3 (NOT MET) Additional Goals: 2-Verbalize Understanding, 3-ImproveStrength/[place] 1=Demonstrate adherence to instructed precautions during ADL tasks. 2=Patient will verbalize/demonstrate understanding of assistive devices/ modifications for ADL. 3=Patient will improve strength/tolerance for activity to enable patient to perform ADL's. Speech Computer Graphic Artist Goals Computer Graphic Artist Goals The patient will demonstrate improvement with expressive and receptive language to increase functional communication in the least restrictive setting. Time Frame: Three Weeks Comprehension: 2 (MET) Expression: 2 (NOT MET) Social Interaction: 3 (NOT MET) Problem Solvin (NOT MET) Memory: 3 (NOT MET) STEVEN JONES OT May 12, 2017 15:59
== END 2017-05-11 11:41 | disposition home health service (06) | DRG 57 ==
LOC: ENPENDDIS 05-11 12:00
PROVIDERS: ADMIT Physical Medicine & Rehabilitation; ATTEND Physical Medicine & Rehabilitation
DX: I69.320 Aphasia following cerebral infarction (principal); I69.351 Hemiplegia and hemiparesis following cerebral infarction affecting right dominant side; I69.398 Other sequelae of cerebral infarction; R26.2 Difficulty in walking, not elsewhere classified; I48.2 Chronic atrial fibrillation; E03.9 Hypothyroidism, unspecified; M06.9 Rheumatoid arthritis, unspecified; F32.9 Major depressive disorder, single episode, unspecified; Z66 Do not resuscitate; I10 Essential (primary) hypertension; J44.9 Chronic obstructive pulmonary disease, unspecified; K21.9 Gastro-esophageal reflux disease without esophagitis; H40.9 Unspecified glaucoma; E87.6 Hypokalemia; E78.5 Hyperlipidemia, unspecified; Z99.81 Dependence on supplemental oxygen; Z79.01 Long term (current) use of anticoagulants
CPT/HCPCS: 36415; 80048; 80053; 85025

== ENCOUNTER 2017-07-12 12:36 | Inpatient (IN) | payer MEDICARE ==
[2017-07-12] VITALS (8 sets, daily range): BP systolic 84–146; BP diastolic 61–86
[~2017-07-12] VITALS: Ht 167.6 cm; Wt 63.5 kg
[~2017-07-12 12:36] MED LIST changes: +AMLO5TAB2 PO; +CITA20TA7 PO; +ZINC28PA TOP
[2017-07-12 13:11] LABS: BASOPHILS % (AUTO) 0 % (0-10); EOSINOPHILS # (AUTO) 0.1 10^3/uL (0.0-0.3); EOSINOPHILS % (AUTO) 1 % (0-10); LYMPHOCYTES % (AUTO) 9 % (12-44); MEAN CORPUSCULAR HEMOGLOBIN 32 PG (25-34); MEAN CORPUSCULAR HGB CONC 33 G/DL (32-36); MEAN CORPUSCULAR VOLUME 97 FL (80-99); MEAN PLATELET VOLUME 10.2 FL (7.4-10.4); MONOCYTES # (AUTO) 0.6 X 10^3 (0.0-1.0); MONOCYTES % (AUTO) 5 % (0-12); NEUTROPHILS # (AUTO) 9.8 X 10^3 (1.8-7.8); NEUTROPHILS % (AUTO) 86 % (42-75); PLATELET COUNT 206 10^3/uL (130-400); RED BLOOD COUNT 3.71 10^6/uL (4.35-5.85); RED CELL DISTRIBUTION WIDTH 14.6 % (10.0-14.5); WHITE BLOOD COUNT 11.4 10^3/uL (4.3-11.0)
--- NOTE | 2017-07-12 13:13 | Diagnostic Imaging Report ---
INDICATION: Generalized weakness. History of stroke. COMPARISON: 02/12/2017. TECHNIQUE: A routine noncontrast CT of the head was performed. FINDINGS: There is a moderate sized area of decreased attenuation involving the left temporal lobe extending into the left parieto-occipital region. There is also involvement of the basal ganglia extending to the periventricular deep white matter as well as the subinsular region. A small area of involvement is also present within the frontal lobe. These areas all correspond to areas of prior infarcts seen on the previous MR brain dated 02/12/2017. There is no new loss of romero/white matter junction differentiation to suggest new acute territorial infarct. The ventricles and cortical sulci are otherwise diffusely prominent, consistent with age-related parenchymal volume loss. There are also a few scattered and confluent areas of decreased attenuation within the periventricular and subcortical deep white matter, consistent with chronic small vessel ischemic changes. There is no mass effect or midline shift. There is no evidence of intra or extra-axial intracranial hemorrhage. No extra-axial masses or fluid collections are seen. The bony calvarium is intact. The included portions of the paranasal sinuses and mastoid cells are clear. IMPRESSION: 1. No new acute intracranial abnormality. No evidence of acute infarct, mass, or hemorrhage. 2. Multiple areas of encephalomalacia involving the left cerebral hemisphere, consistent with the infarcts seen on the prior MR brain dated 02/12/2017. 3. Background of age-related parenchymal volume loss and chronic small vessel ischemic changes in the deep white matter. Dictated by: Dictated on workstation # [id number]
--- NOTE | 2017-07-12 13:15 | Diagnostic Imaging Report ---
INDICATION: Generalized weakness. Frontal chest obtained at 1:03 p.m. and compared to 02/16/17 FINDINGS: Heart is enlarged. There is minimal central vascular prominence. There is no focal consolidation or pneumothorax or pleural fluid. Overlying external pacer leads are seen. IMPRESSION: Cardiomegaly and mild central vascular prominence. No overt consolidation or pleural fluid. Dictated by: Dictated on workstation # [id number]
[2017-07-12 13:26] LABS: INR 1.4 (0.8-1.4); PROTHROMBIN TIME PATIENT 17.3 SEC (12.2-14.7)
[2017-07-12 13:29] LABS: ALANINE AMINOTRANSFERASE 8 U/L (0-55); ALBUMIN 3.5 GM/DL (3.2-4.5); ANION GAP 9 MMOL/L (5-14); ASPARTATE AMINO TRANSFERASE 14 U/L (5-34); BLOOD UREA NITROGEN 10 MG/DL (7-18); BUN/CREATININE RATIO 14; CALCIUM 8.3 MG/DL (8.5-10.1); CARBON DIOXIDE 28 MMOL/L (21-32); CHLORIDE 106 MMOL/L (98-107); CREATININE SERUM 0.74 MG/DL (0.60-1.30); GFR ESTIMATED > 60; GLUCOSE 99 MG/DL (70-105); MAGNESIUM 1.9 MG/DL (1.8-2.4); POTASSIUM 3.5 MMOL/L (3.6-5.0); SODIUM 143 MMOL/L (135-145); TOTAL PROTEIN 6.3 GM/DL (6.4-8.2)
[2017-07-12 13:35] LABS: MYOGLOBIN SERUM 31.1 NG/ML (10.0-92.0)
--- OUTSIDE RECORDS SUMMARY | 2017-07-12 13:37 | XMS REPORT | Clinical Summary ---
Author Author [facility] Organization [facility] Address Unknown Phone Unavailable Care Team Providers Care Flight Control Specialist Name Role Phone PCP Unavailable Source Comments Some departments are not documenting in the electronic medical record. If you do not see the information that you expected, contact Release of Information in the Health Information Management department at [phone] for further assistance in locating additional records.[facility] Allergies Active Allergy Reactions Severity Noted Date Comments Iodine UNKNOWN Low 02/26/2015 Unclassified Drug UNKNOWN Low 02/26/2015 Any "cane" medication Current Medications Prescription Sig. [...] Problem Noted Date Dizziness 02/26/2015 Vertigo 02/26/2015 Family History Relation Name Status Comments Social History Tobacco Use Types Packs/Day Years Used Date Never Smoker Smokeless Tobacco: Never Used Alcohol Use Drinks/Week oz/Week Comments No Sex Assigned at Date Recorded Not on file Last Filed Vital Signs Vital Sign Reading Time Taken Blood Pressure 136/80 02/26/2015 3:23 PM CDT Pulse 56 02/26/2015 3:23 PM CDT Temperature 36.6 C (97.9 F) 02/26/2015 2:04 PM CDT Respiratory Rate - - Oxygen Saturation 96% 02/26/2015 2:04 PM CDT Inhaled Oxygen - - Concentration Weight 72.6 kg (160 lb) 02/26/2015 2:04 PM CDT Height 162.6 cm (5' 4") 02/26/2015 2:04 PM CDT Body Mass Index 27.46 02/26/2015 2:04 PM CDT Plan of Treatment Health Maintenance Due Date Last Done Comments PHYSICAL (COMPREHENSIVE) 1942 EXAM PERTUSSIS VACCINE 1946 TETANUS VACCINE 1952 SHINGLES VACCINE 1995 OSTEOPOROSIS SCREENING 2000 PREVNAR/PNEUMOVAX (#1) 2000 INFLUENZA VACCINE 07/16/2017 Results Not on filefrom Last 3 Months
[2017-07-12 14:19] LABS: DIGOXIN 1.1 NG/ML (0.80-2.00); THYROID STIMULATING HORMONE 2.58 UIU/ML (0.35-4.94)
[2017-07-12 15:02] LABS: BILIRUBIN,URINE NEGATIVE (NEGATIVE); KETONES,URINE NEGATIVE (NEGATIVE); LEUKOCYTE ESTERASE ,URINE 1+ (NEGATIVE); NITRITE,URINE NEGATIVE (NEGATIVE); PH,URINE 8 (5-9); PROTEIN,URINE NEGATIVE (NEGATIVE); SQUAMOUS EPITHELIAL CELL,UR RARE /HPF; UROBILINOGEN,URINE NORMAL (NORMAL)
--- NOTE | 2017-07-12 16:00 | Diagnostic Imaging Report ---
PROCEDURE: MR angiography of the brain without the use of contrast. TECHNIQUE: 3D [id number]-az-[id number] non contrast enhanced MR angiography of the head was performed. A source data was reformatted into rotating MIP projections. INDICATION: CVA. FINDINGS: There is a focal area of diffusion restriction along the external capsule on the left. This has the appearance of a watershed infarct likely reflecting large vessel disease in the neck. There is a dominant left vertebral artery. The distal vertebral arteries, basilar artery and distal internal carotid arteries are widely patent. There are no definitive proximal intracranial branch occlusions, vascular malformations or aneurysms. IMPRESSION: 1. Unremarkable MRA of the [place] of [place]. 2. Diffusion restriction in the external capsule on the left likely reflecting watershed infarct. This is generally related to hypotensive event possibly related to a stenosis in the proximal internal carotid artery. Repeat carotid Dopplers on a nonemergent basis are recommended. Dictated by: Dictated on workstation # [id number]
--- NOTE | 2017-07-12 16:29 | ED Neurological Problem ---
General Chief Complaint: Neuro-Stroke Like Symptoms Stated Complaint: CODE Nursing Triage Note: c/o increasing confusion and generalized weakness. Nursing Sepsis Screen: No Definite Risk Source: patient, family, EMS, [facility] records, old records, other ( [facility] staff contacted by phone) Exam Limitations: clinical condition History of Present Illness Time seen by provider: 12:37 Initial Comments This 82-year-old woman presents to the emergency room via EMS from [facility] in [place] after having an episode of bradycardia, hypotension, and unresponsiveness. Staff reported that she was walking to the dining room with her when she suddenly became weak. He sat her down on her walker seat and called for help. By the time of EMS arrival at noon, blood pressure was recorded as 62/42 and heart rate was in the 40s. Patient was completely unresponsive, diaphoretic, and pale. Patient has a history of CVA. She is also anticoagulated for atrial fibrillation. Patient has chronic old deficits at baseline including some right-sided weakness and expressive aphasia described as "word salad". Patient has DO NOT RESUSCITATE documentation on her [facility] record. Last known well time was 11:30. Stroke activation was paged after initial assessment. Fingerstick blood sugar was 144. EMS the patient with external pacer. Atropine 0.5 mg was also administered. Allergies and Home Medications Allergies Coded Allergies: iodine (Unverified Adverse Reaction, Unknown, 10/12/15) lidocaine (Unverified Adverse Reaction, Unknown, 10/12/15) Home Medications Amlodipine Besylate 5 Mg Tablet, 5 MG PO DAILY for 30 Days, #30 Prescribed by: JESSI JONES on 05/11/17 0726 Apixaban 5 Mg Tablet, 5 MG PO BID, (Reported) Atenolol 25 Mg Tablet, 12.5 MG PO DAILY, (Reported) TAKES 1/2 (25MG) TABLET Bimatoprost 2.5 Ml Drops, 1 DROP OD HS, (Reported) Brimonidine Tartrate/Timolol 5 Ml Drops, 1 DROP OU BID, (Reported) Citalopram Hydrobromide 20 Mg Tablet, 20 MG PO DAILY for 30 Days, #30 Prescribed by: JESSI JONES on 05/11/1726 Cyclopentolate HCl 2 Ml Drops, 1 DROP OD HS, (Reported) Digoxin 125 Mcg Tablet, 125 MCG PO DAILY, (Reported) Folic Acid 1 Mg Tablet, 1 MG PO BID, (Reported) LAST FILLED #60 01-08-17 Gabapentin 300 Mg Capsule, 300 MG PO BID, (Reported) Levothyroxine Sodium 75 Mcg Tablet, 75 MCG PO DAILY, (Reported) Lisinopril 10 Mg Tablet, 10 MG PO DAILY, (Reported) Methotrexate Sodium 2.5 Mg Tablet, 25 MG PO Tu, (Reported) TAKES 10 (2.5MG) TABLETS Omeprazole 20 Mg Capsule.dr, 20 MG PO BID, (Reported) Prednisolone Acetate 5 Ml Drops.susp, 1 DROP OD QID, (Reported) 1% Simvastatin 40 Mg Tablet, 40 MG PO HS, (Reported) Timolol Maleate 5 Ml Drops, 1 DROP OU BID, (Reported) Zinc Oxide 28 Gm Oint, 0 GM TOP BID for 30 Days, #1 Prescribed by: JESSI JONES on 05/11/17 0726 Constitutional: see HPI Eyes: No Symptoms Reported Ears, Nose, Mouth, Throat: no symptoms reported Respiratory: no symptoms reported Cardiovascular: no symptoms reported Gastrointestinal: no symptoms reported Genitourinary: no symptoms reported Musculoskeletal: no symptoms reported Skin: no symptoms reported Psychiatric/Neurological: See HPI Endocrine: No Symptoms Reported Hematologic/Lymphatic: No Symptoms Reported Past Hxvpodx-Mxuvam-Lkpysb Hx Patient Social History Recent Foreign Travel: No Contact w/Someone Who Travel: No Recent Infectious Disease Expo: No Recent Hopitalizations: No Immunizations Up To Date Tetanus Booster (TDap): Less than 5yrs Date of Pneumonia Vaccine: Aug 20, 2014 Date of Influenza Vaccine: Aug 17, 2016 Seasonal Allergies Seasonal Allergies: Yes Surgeries History of Surgeries: Yes (Foot surgery d/t RA. Eye SX. ) Surgeries: Appendectomy, Gallbladder, Hysterectomy Respiratory History of Respiratory Disorde: No Currently Using CPAP: No Currently Using BIPAP: No Cardiovascular History of Cardiac Disorders: Yes Cardiac Disorders: Atrial Fibrillation, Hypertension Neurological History of Neurological Disord: Yes Neurological Disorders: Stroke, TIA Gastrointestinal History of Gastrointestinal Di: Yes Gastrointestinal Disorders: Gastroesophageal Reflux Musculoskeletal History of Musculoskeletal Dis: Yes Musculoskeletal Disorders: Rheumatoid Arthritis Endocrine History of Endocrine Disorders: Yes Endocrine Disorders: Hypothyroidsim HEENT History of HEENT Disorders: Yes HEENT Disorders: Glaucoma Loss of Vision: Right Hearing Impairment: Denies Cancer History of Cancer: Yes (Unsure Ovarian or Uterine CA. ) Cancer: Ovarian, Uterine Psychosocial History of Psychiatric Problem: No Blood Transfusions History of Blood Disorders: No Family Medical History Family Medial History: Alcoholism 19 FATHER Asthma 19 MOTHER G8 SISTER Cardiovascular disease G8 SISTER FH: atrial fibrillation G8 SISTER FH: cancer G8 BROTHER G8 SISTER FH: lymphoma G8 BROTHER G8 SISTER Physical Exam Vital Signs Vital Sign - Last 12Hours 07/12/17 13:26 Temp 97.5 Pulse 76 Resp 16 B/P (MAP) 130/86 Pulse Ox 97 O2 Delivery Room Air Capillary Refill : Less Than 3 Seconds General Appearance: WD/WN, mild distress (with pacer discharges), other ( decreased alertness, decreased responsiveness) HEENT: normal ENT inspection, pharynx normal, other (chronic pupillary defect presumably from cataracts) Neck: normal inspection, No carotid bruit Respiratory: lungs clear, normal breath sounds, no respiratory distress, no accessory muscle use Cardiovascular: no edema, no murmur, irregularly irregular Gastrointestinal: normal bowel sounds, non tender, soft Extremities: normal inspection, no pedal edema Neurologic/Psychiatric: other (patient is alert but lethargic. She initially would not speak but speech improved as time passed. She had bilateral lower extremity weakness. There was right-sided facial droop. NIH stroke score was 19.) Crainal Nerves: abnormal speech, facial asymmetry, facial droop (right side) Coordination/Gait: normal finger to nose Motor/Sensory: weak motor strength RUE, weak motor strength RLE, weak motor strength LLE Stroke NIH Stroke Scale Assessment Select: Initial Level of Consciousness: 0=Alert (0), Level of Consciousness- Questions: 2=Answer neither question (2), LOC Commands: 0=Performs both tasks (0 ), Gaze: Partial Gaze Palsy (1), Visual Alba: 1=Partial hemianopia (1), Facial Movement (Facial Paresis): 1=Minor paralysis (1), Motor Function-Arms Right: 0=No drift (0), Motor Function-Arms Left: 0=No drift (0), Motor Function- Legs Right: 3=No effort/gravity (3), Motor Function-Legs Left: 3=No effort/ gravity (3), Limb Ataxia: 0=Absent (0), Sensory: 0=Normal:no loss (0), Best Language: 3=Mute (3), Dysarthria: 3=Intubated/Physical kevin (3), Extinction & Inattention: 2=ProfoundHemiInattention (2), Total: 19 IV - TPa Received IV - TPa Procedure Performed?: No Progress/Results/Core Measures Results/Orders Lab Results Laboratory Tests Test 07/12/17 12:51 07/12/17 14:50 Range/Units White Blood Count 11.4 H 4.3-11.0 10^3/uL Red Blood Count 3.71 L 4.35-5.85 10^6/uL Hemoglobin 11.9 11.5-16.0 G/DL Hematocrit 36 35-52 % Mean Corpuscular Volume 97 80-99 FL Mean Corpuscular Hemoglobin 32 25-34 PG Mean Corpuscular Hemoglobin Concent 33 32-36 G/DL Red Cell Distribution Width 14.6 H 10.0-14.5 % Platelet Count 206 130-400 10^3/uL Mean Platelet Volume 10.2 7.4-10.4 FL Neutrophils (%) (Auto) 86 H 42-75 % Lymphocytes (%) (Auto) 9 L 12-44 % Monocytes (%) (Auto) 5 0-12 % Eosinophils (%) (Auto) 1 0-10 % Basophils (%) (Auto) 0 0-10 % Neutrophils # (Auto) 9.8 H 1.8-7.8 X 10^3 Lymphocytes # (Auto) 1.0 1.0-4.0 X 10^3 Monocytes # (Auto) 0.6 0.0-1.0 X 10^3 Eosinophils # (Auto) 0.1 0.0-0.3 10^3/uL Basophils # (Auto) 0.0 0.0-0.1 10^3/uL Prothrombin Time 17.3 H 12.2-14.7 SEC INR Comment 1.4 0.8-1.4 Activated Partial Thromboplast Time 30 24-35 SEC D-Dimer 1.61 H 0.00-0.49 UG/ML Sodium Level 143 135-145 MMOL/L Potassium Level 3.5 L 3.6-5.0 MMOL/L Chloride Level 106 98-107 MMOL/L Carbon Dioxide Level 28 21-32 MMOL/L Anion Gap 9 5-14 MMOL/L Blood Urea Nitrogen 10 7-18 MG/DL Creatinine 0.74 0.60-1.30 MG/DL Estimat Glomerular Filtration Rate > 60 BUN/Creatinine Ratio 14 Glucose Level 99 70-105 MG/DL Calcium Level 8.3 L 8.5-10.1 MG/DL Magnesium Level 1.9 1.8-2.4 MG/DL Total Bilirubin 1.0 0.1-1.0 MG/DL Aspartate Amino Transf (AST/SGOT) 14 5-34 U/L Alanine Aminotransferase (ALT/SGPT) 8 0-55 U/L Alkaline Phosphatase 68 40-136 U/L Myoglobin 31.1 10.0-92.0 NG/ML Troponin I < 0.30 <0.30 NG/ML Total Protein 6.3 L 6.4-8.2 GM/DL Albumin 3.5 3.2-4.5 GM/DL Thyroid Stimulating Hormone (TSH) 2.58 0.35-4.94 UIU/ML Free Thyroxine 1.08 0.70-1.48 NG/DL Digoxin Level 1.10 0.80-2.00 NG/ML Urine Color YELLOW Urine Clarity CLEAR Urine pH 8 5-9 Urine Specific [place] 1.015 L 1.016-1.022 Urine Protein NEGATIVE NEGATIVE Urine Glucose (UA) NEGATIVE NEGATIVE Urine Ketones NEGATIVE NEGATIVE Urine Nitrite NEGATIVE NEGATIVE Urine Bilirubin NEGATIVE NEGATIVE Urine Urobilinogen NORMAL NORMAL MG/DL Urine Leukocyte Esterase 1+ H NEGATIVE Urine RBC (Auto) NEGATIVE NEGATIVE Urine RBC NONE /HPF Urine WBC 5-10 H /HPF Urine Squamous Epithelial Cells RARE /HPF Urine Crystals NONE /LPF Urine Bacteria TRACE /HPF Urine Casts NONE /LPF Urine Mucus NEGATIVE /LPF Urine Culture Indicated NO My Orders Orders - TRAM PALMER MD Fibrin Degradation Products (07/12/17 12:54) Nothing By Mouth (07/12/17 Dinner) Saline Lock/Iv-Start (07/12/17 12:54) Vital Signs - Stroke Q15M (07/12/17 12:54) Dysphagia Screening Tool (07/12/17 12:54) Digoxin (07/12/17 13:25) Thyroid Stimulating Hormone (07/12/17 13:25) Free T4 (Free Thyroxine) (07/12/17 13:25) Arterial Blood Gas (07/12/17 13:29) Mra Head W/O Contrast (07/12/17 14:41) Us Carotid Ishan Complete [id number] (07/12/17 15:52) Vital Signs/I&O Vital Sign - Last 12Hours 07/12/17 07/12/17 07/12/17 13:26 13:30 13:30 Temp 97.5 Pulse 76 76 Resp 16 16 B/P (MAP) 130/86 130/86 Pulse Ox 97 97 97 O2 Delivery Room Air Nasal Cannula O2 Flow Rate 2.00 Blood Pressure Mean: 101 Progress Note : Progress Note TPA was not administered as patient was not a candidate with her recent Eliquis use. She also had progressive improvement in symptoms. I discussed the case with Dr. Chris at [facility] who suggested evaluating the large vessels with either CT angiogram or MRA. CT angiogram is preferred but patient has an allergy to iodine. Pretreatment was offered to family but they did not want any exposure to iodine even with pretreatment. MRI was performed as an alternative. No large vessel occlusion was found to warrant transfer to [facility] for IR therapy. Patient did gradually improve throughout her ER stay to near baseline. She was admitted for further observation. Aspirin was administered after dysphagia screen. ECG Initial ECG Impression Date: Jul 12, 2017 Initial ECG Impression Time: 12:40 Initial ECG Rate: 80 Initial ECG Rhythm: A Fib/Flutter Comment Rate controlled atrial fibrillation with no ST elevation or depression. LVH. Diagnostic Imaging Diagonstic Imaging: Xray Plain Films/CT/US/NM/MRI: chest Comments And chest x-ray report reviewed. See report below: NAME: KRISTYN MARTINEZ [facility] REC#: [id number] PT STATUS: REG ER : 1935 PHYSICIAN: XAVIER SCOTT APRN ADMIT DATE: 07/12/17/ER Signed Date of Exam: 07/12/17 CHEST 1 VIEW, AP/PA ONLY INDICATION: Generalized weakness. Frontal chest obtained at 1:03 p.m. and compared to 02/16/17 FINDINGS: Heart is enlarged. There is minimal central vascular prominence. There is no focal consolidation or pneumothorax or pleural fluid. Overlying external pacer leads are seen. IMPRESSION: Cardiomegaly and mild central vascular prominence. No overt consolidation or pleural fluid. Dictated by: Dictated on workstation # [id number] Dict: 07/12/17 1311 Trans: 07/12/17 1336 Interpreted by: AUSTIN BOOTH MD Electronically signed by: AUSTIN BOOTH MD 07/12/17 1336 Departure Communication (Admissions) Time/Spoke to Admitting Phy: 16:[address] Toro Time/Spoke to Consulting Phy: 16:24 Communication/Consulting Dr. Bean Impression Impression: Primary Impression: Cerebrovascular accident Qualified Codes: I63.9 - Cerebral infarction, unspecified Additional Impressions: Expressive aphasia Altered mental status Qualified Codes: R41.82 - Altered mental status, unspecified Bradycardia Syncope Qualified Codes: R55 - Syncope and collapse Urinary tract infection Qualified Codes: N39.0 - Urinary tract infection, site not specified Disposition: ADMITTED INPATIENT Condition: Improved Admissions Decision to Admit Reason: Admit from ER (General) Decision to Admit/Date: Jul 12, 2017 Time/Decision to Admit Time: 13:00 Departure-Patient Inst. Referrals: ANNMARIE FAGAN DO (PCP/Family) Primary Care Physician TRAM PALMER MD Jul 12, 2017 16:28
[2017-07-12] MEDS ORDERED: ASPIRIN 325 MG (5 GR) TABLET PO ONE (16:45)
--- OUTSIDE RECORDS SUMMARY | 2017-07-12 16:57 | XMS REPORT | Clinical Summary ---
Author Author [facility] Organization [facility] Address Unknown Phone Unavailable Care Team Providers Care Culinary Instructor Name Role Phone PCP Unavailable Source Comments Some departments are not documenting in the electronic medical record. If you do not see the information that you expected, contact Release of Information in the Health Information Management department at [phone] for further assistance in locating additional records.[facility] Allergies Active Allergy Reactions Severity Noted Date [...]
--- NOTE | 2017-07-12 17:02 | Consultation-Cardiology ---
HPI-Cardiology Cardiology Consultation Date of Consultation 07/12/17 Date of Admission Time Seen by Provider: 16:00 Indication: Bradycardia HPI 82 years old lady with history of atrial fibrillation, maintained on eliquis, history of CVA with residual expressive aphasia, was in the skilled nursing and had a sudden onset of weakness and fatigue, no full syncope, no chest pain or shortness of breath, EMS were called and patient was bradycardic, BP was normal , she was given Atropine, brought to the ER, she is unable to give any history due to her underlying aphasia, there is questionable worsening of her stroke on CT, she denied any chest pain or shortness of breath, no syncope, has been compliant with her medications Home Medications & Allergies Allergies: Coded Allergies: iodine (Unverified Adverse Reaction, Unknown, 10/12/15) lidocaine (Unverified Adverse Reaction, Unknown, 10/12/15) Home Medication List Reviewed: Yes MBI-[id number]-[id number] Hx Patient Social History Marital Status: Employed/Student: retired Recent Foreign Travel: No Recent Infectious Disease Expo: No Recent Hopitalizations: No Immunizations Up To Date Tetanus Booster (TDap): Less than 5yrs Date of Pneumonia Vaccine: Aug 20, 2014 Date of Influenza Vaccine: Aug 17, 2016 Past Medical History discussed below Family Medical History Family History: 19 FATHER Alcoholism 19 MOTHER Asthma G8 BROTHER FH: cancer FH: lymphoma G8 SISTER FH: cancer FH: lymphoma Cardiovascular disease Asthma FH: atrial fibrillation Constitutional: see HPI, malaise, weakness EENTM: see HPI, no symptoms reported Respiratory: no symptoms reported, see HPI Cardiovascular: no symptoms reported, see HPI Gastrointestinal: no symptoms reported, see HPI Genitourinary: see HPI Musculoskeletal: no symptoms reported, see HPI Skin: no symptoms reported, see HPI Psychiatric/Neurological: No Symptoms Reported, See HPI Reviewed Test Results Reviewed Test Results Lab Laboratory Tests Test 07/12/17 12:51 07/12/17 14:50 Range/Units White Blood Count 11.4 H 4.3-11.0 10^3/uL Red Blood Count 3.71 L 4.35-5.85 10^6/uL Hemoglobin 11.9 11.5-16.0 G/DL Hematocrit 36 35-52 % Mean Corpuscular Volume 97 80-99 FL Mean Corpuscular Hemoglobin 32 25-34 PG Mean Corpuscular Hemoglobin Concent 33 32-36 G/DL Red Cell Distribution Width 14.6 H 10.0-14.5 % Platelet Count 206 130-400 10^3/uL Mean Platelet Volume 10.2 7.4-10.4 FL Neutrophils (%) (Auto) 86 H 42-75 % Lymphocytes (%) (Auto) 9 L 12-44 % Monocytes (%) (Auto) 5 0-12 % Eosinophils (%) (Auto) 1 0-10 % Basophils (%) (Auto) 0 0-10 % Neutrophils # (Auto) 9.8 H 1.8-7.8 X 10^3 Lymphocytes # (Auto) 1.0 1.0-4.0 X 10^3 Monocytes # (Auto) 0.6 0.0-1.0 X 10^3 Eosinophils # (Auto) 0.1 0.0-0.3 10^3/uL Basophils # (Auto) 0.0 0.0-0.1 10^3/uL Prothrombin Time 17.3 H 12.2-14.7 SEC INR Comment 1.4 0.8-1.4 Activated Partial Thromboplast Time 30 24-35 SEC D-Dimer 1.61 H 0.00-0.49 UG/ML Sodium Level 143 135-145 MMOL/L Potassium Level 3.5 L 3.6-5.0 MMOL/L Chloride Level 106 98-107 MMOL/L Carbon Dioxide Level 28 21-32 MMOL/L Anion Gap 9 5-14 MMOL/L Blood Urea Nitrogen 10 7-18 MG/DL Creatinine 0.74 0.60-1.30 MG/DL Estimat Glomerular Filtration Rate > 60 BUN/Creatinine Ratio 14 Glucose Level 99 70-105 MG/DL Calcium Level 8.3 L 8.5-10.1 MG/DL Magnesium Level 1.9 1.8-2.4 MG/DL Total Bilirubin 1.0 0.1-1.0 MG/DL Aspartate Amino Transf (AST/SGOT) 14 5-34 U/L Alanine Aminotransferase (ALT/SGPT) 8 0-55 U/L Alkaline Phosphatase 68 40-136 U/L Myoglobin 31.1 10.0-92.0 NG/ML Troponin I < 0.30 <0.30 NG/ML Total Protein 6.3 L 6.4-8.2 GM/DL Albumin 3.5 3.2-4.5 GM/DL Thyroid Stimulating Hormone (TSH) 2.58 0.35-4.94 UIU/ML Free Thyroxine 1.08 0.70-1.48 NG/DL Digoxin Level 1.10 0.80-2.00 NG/ML Urine Color YELLOW Urine Clarity CLEAR Urine pH 8 5-9 Urine Specific [place] 1.015 L 1.016-1.022 Urine Protein NEGATIVE NEGATIVE Urine Glucose (UA) NEGATIVE NEGATIVE Urine Ketones NEGATIVE NEGATIVE Urine Nitrite NEGATIVE NEGATIVE Urine Bilirubin NEGATIVE NEGATIVE Urine Urobilinogen NORMAL NORMAL MG/DL Urine Leukocyte Esterase 1+ H NEGATIVE Urine RBC (Auto) NEGATIVE NEGATIVE Urine RBC NONE /HPF Urine WBC 5-10 H /HPF Urine Squamous Epithelial Cells RARE /HPF Urine Crystals NONE /LPF Urine Bacteria TRACE /HPF Urine Casts NONE /LPF Urine Mucus NEGATIVE /LPF Urine Culture Indicated NO Radiology IMPRESSION: 1. Unremarkable MRA of the [place]. 2. Diffusion restriction in the external capsule on the left likely reflecting watershed infarct. This is generally related to hypotensive event possibly related to a stenosis in the proximal internal carotid artery. Repeat carotid Dopplers on a nonemergent basis are recommended. Physical Exam Vital Signs Vital Sign - Last 12Hours 07/12/17 13:26 Temp 97.5 Pulse 76 Resp 16 B/P (MAP) 130/86 Pulse Ox 97 O2 Delivery Room Air Capillary Refill : Less Than 3 Seconds General Appearance: No Apparent Distress, WD/WN Eyes: Bilateral Eye Normal Inspection, Bilateral Eye PERRL, Bilateral Eye EOMI HEENT: PERRL/EOMI, TMs Normal, Normal ENT Inspection, Pharynx Normal Neck: Normal Inspection, Non Tender, Supple Respiratory: Chest Non Tender, Lungs Clear, Normal Breath Sounds, No Accessory Muscle Use, No Respiratory Distress Cardiovascular: No Edema, No Gallop, Normal Peripheral Pulses, Systolic Murmur , Irregularly Irregular Gastrointestinal: Normal Bowel Sounds, No Organomegaly, No Pulsatile Mass, Non Tender, Soft Back: Normal Inspection Extremity: Normal Capillary Refill, Normal Inspection, Non Tender, No Pedal Edema Neurologic/Psychiatric: Alert, Normal Mood/Affect, Aphasia Skin: Normal Color, Warm/Dry Lymphatic: No Adenopathy A/P-Cardiology Admission Diagnosis Bradycardia Persistent atrial fibrillation Hypertension Weakness CVA Assessment/Plan Generalized weakness and near syncope, bradycardia, persistent atrial fibrillation, heart rate is better at this time, continue to monitor Questionable worsening of her CVA, maintained on oral anticoagulation, pending to evaluate echocardiogram. Persistent atrial fibrillation, patient is admitted to ICU, monitor, restart home medications and monitor. Hypertension, continue to monitor blood pressure History of expressive aphasia secondary to old CVA. Hyperlipidemia, monitor lipids Hypothyroidism, followed by primary care physician MORIS GABRIEL MD Jul 12, 2017 17:02
--- NOTE | 2017-07-12 17:47 | Diagnostic Imaging Report ---
PROCEDURE: US Carotid Duplex Bilateral. TECHNIQUE: Multiple real-time grayscale images were obtained over the carotid arteries in various projections bilaterally. Additional duplex Doppler and color Doppler images were also obtained. INDICATION: Stroke. COMPARISON: None. FINDINGS: There appears to be diffuse mild intimal thickening, particularly in the common carotid arteries bilaterally. No large irregular plaques are demonstrated. Peak systolic velocities and flow ratios are as follows: CCA: Right 69 cm/s, left 65 cm/s. ICA: Right 52 cm/s, left 68 cm/s. ECA: Right 72 cm/s, left not well visualized. ICA/CCA ratio: Right 0.75, left 1.1. Antegrade flow in the vertebral arteries bilaterally. IMPRESSION: There is some minimal thickening bilaterally. Based on peak systolic velocities and flow ratios, there is no evidence of a hemodynamically significant stenosis within either carotid artery. There is antegrade flow in the vertebral arteries bilaterally. Dictated by: Dictated on workstation # [id number]
[2017-07-12] MEDS ORDERED: CATHETER FLUSH 10 ML SYR IV PRN (19:00)
[2017-07-12] MEDS ORDERED: MILK OF MAGNESIA 400 MG/5 ML 30 ML UDC PO PRN (19:00)
[2017-07-12] MEDS ORDERED: ONDANSETRON 4 MG/2 ML (SDV) Z0FRAN IV PRN (19:00)
[2017-07-12] MEDS ORDERED: FAMOTIDINE 20MG/2ML IV (PEPCID) IV SCH (21:00)
[2017-07-12] MEDS ORDERED: BISACODYL 10 MG SUPP (DULCOLAX) PR PRN (21:00)
[2017-07-12] MEDS: CEPHALEXIN 250 MG (KEFLEX) CAP PO SCH (21:58)
[2017-07-12] MEDS: DOCUSATE SODIUM 100 MG (COLACE) CAP PO SCH (21:58)
[2017-07-12] MEDS: APIXABAN 5 MG (ELIQUIS) TABLET PO SCH (21:58)
[2017-07-12] MEDS: FAMOTIDINE 20 MG (PEPCID) TABLET PO SCH (21:58)
[2017-07-12] MEDS: CATHETER FLUSH 10 ML SYR IV SCH (21:59)
[2017-07-13] VITALS (11 sets, daily range): BP systolic 123–151; BP diastolic 61–79
[2017-07-13 05:35] LABS: BASOPHILS % (AUTO) 0 % (0-10); EOSINOPHILS # (AUTO) 0.1 10^3/uL (0.0-0.3); EOSINOPHILS % (AUTO) 1 % (0-10); LYMPHOCYTES # (AUTO) 1.1 X 10^3 (1.0-4.0); LYMPHOCYTES % (AUTO) 12 % (12-44); MEAN CORPUSCULAR HEMOGLOBIN 31 PG (25-34); MEAN CORPUSCULAR HGB CONC 32 G/DL (32-36); MEAN CORPUSCULAR VOLUME 97 FL (80-99); MEAN PLATELET VOLUME 10.1 FL (7.4-10.4); MONOCYTES # (AUTO) 0.6 X 10^3 (0.0-1.0); MONOCYTES % (AUTO) 6 % (0-12); NEUTROPHILS # (AUTO) 7.6 X 10^3 (1.8-7.8); NEUTROPHILS % (AUTO) 81 % (42-75); PLATELET COUNT 196 10^3/uL (130-400); RED BLOOD COUNT 3.97 10^6/uL (4.35-5.85); RED CELL DISTRIBUTION WIDTH 14.5 % (10.0-14.5); WHITE BLOOD COUNT 9.4 10^3/uL (4.3-11.0)
[2017-07-13 05:58] LABS: ALANINE AMINOTRANSFERASE 7 U/L (0-55); ALBUMIN 3.4 GM/DL (3.2-4.5); ANION GAP 10 MMOL/L (5-14); ASPARTATE AMINO TRANSFERASE 13 U/L (5-34); BILIRUBIN,TOTAL 0.8 MG/DL (0.1-1.0); BLOOD UREA NITROGEN 7 MG/DL (7-18); BUN/CREATININE RATIO 12; CALCIUM 8.7 MG/DL (8.5-10.1); CARBON DIOXIDE 28 MMOL/L (21-32); CHLORIDE 105 MMOL/L (98-107); CREATININE SERUM 0.57 MG/DL (0.60-1.30); GFR ESTIMATED > 60; GLUCOSE 85 MG/DL (70-105); PHOSPHORUS 2.9 MG/DL (2.3-4.7); SODIUM 143 MMOL/L (135-145); TOTAL PROTEIN 6.1 GM/DL (6.4-8.2)
[2017-07-13 05:59] LABS: CHOLESTEROL 157 MG/DL (< 200); DIRECT LDL 96 MG/DL (1-129); TRIGLYCERIDES 90 MG/DL (<150); VLDL CHOLESTEROL 18 MG/DL (5-40)
[2017-07-13] MEDS ORDERED: POTASSIUM CL 10MEQ/50ML IVPB 50 ML IV SCH (06:00)
[2017-07-13] MEDS ORDERED: KCL 20 MEQ TAB (K-DUR) PO SCH (06:00)
[2017-07-13] MEDS ORDERED: MAGNESIUM 1 GM/100 ML IVPB 100 ML IV SCH (06:00)
[2017-07-13] MEDS: CATHETER FLUSH 10 ML SYR IV SCH ×2 (06:35→14:53)
--- NOTE | 2017-07-13 07:55 | Diagnostic Imaging Report ---
INDICATION: Bradycardia. Comparison made to prior examination 07/12/2017. FINDINGS: There is cardiomegaly. There is some venous congestion. There is no pneumothorax. The mediastinum is unremarkable. There is minimal bibasilar atelectasis and/or pneumonitis. IMPRESSION: Cardiomegaly and some minimal bibasilar subsegmental atelectasis and/or pneumonitis. Dictated by: Dictated on workstation # [id number]
[2017-07-13] MEDS ORDERED: KCL 20 MEQ TAB (K-DUR) PO ONE ×3 (08:00→12:00)
--- NOTE | 2017-07-13 08:40 | Cardiology Progress Note ---
Subjective Date Seen by Provider: Jul 13, 2017 Time Seen by Provider: 08:37 Subjective/Events-last exam patient is laying down in bed, asking to go home. Denied any chest pain. Still having aphasia Review of Systems General: No Chills, No Night Sweats, No Fatigue, No Malaise, No Appetite, No Other HEENT: No Head Aches, No Visual Changes, No Eye Pain, No Ear Pain, No Dysphasia , No Sinus Congestion, No Post Nasal Drip, No Sore Throat, No Other Pulmonary: No Dyspnea, No Cough, No Pleuritic Chest Pain, No Other Cardiovascular: No: Chest Pain, Palpitations, Orthopnea, Paroxysmal Noc. Dyspnea, Edema, Lt Headedness, Other Objective-Cardiology Exam Last Set of Vital Signs Vital Signs 07/12/17 07/13/17 07/13/17 07/13/17 23:00 04:00 06:00 07:00 Temp 98.8 Pulse 53 Resp 13 B/P (MAP) 132/79 Pulse Ox 97 O2 Delivery Room Air O2 Flow Rate 2.00 Capillary Refill : Less Than 3 Seconds General: Alert, Oriented X3, Cooperative HEENT: Atraumatic, PERRLA Neck: Supple, No JVD, No Thyromegaly Lungs: Clear to Auscultation, Normal Air Movement Heart: Normal S1, Normal S2, No Murmurs, Other (atrial fibrillation) Abdomen: Normal Bowel Sounds, Soft, No Tenderness, No Hepatosplenomegaly, No Masses Extremities: No Clubbing, No Cyanosis, No Edema, Normal Pulses, No Tenderness/ Swelling Skin: No Rashes, No Breakdown, No Significant Lesion Neuro: Normal Tone, Sensation Intact Psych/Mental Status: Mood NL Results Lab Laboratory Tests 07/12/17 12:51 07/13/17 05:12 A/P-Cardiology Admission Diagnosis Bradycardia Persistent atrial fibrillation Hypertension Weakness CVA Assessment/Plan Generalized weakness and near syncope, bradycardia, persistent atrial fibrillation, heart rate is better at this time, monitored overnight and sterile heart rate well controlled. Maintained on atenolol and digoxin, probably had a vagal episode. I will discontinue digoxin and continue on atenolol for now. Okay for discharge. No other changes are recommended. Questionable worsening of her CVA, maintained on oral anticoagulation, planning to have an echo done. Persistent atrial fibrillation, episodes of bradycardia, heart rate is well- controlled. Continue on all medications except for digoxin. Hypertension, continue to monitor blood pressure History of expressive aphasia secondary to old CVA. Hyperlipidemia, monitor lipids Hypothyroidism, followed by primary care physician From cardiac standpoint patient may be discharged to the [facility], follow- up with primary table worker Dr. Noel Trevino Clinical Quality Measures DVT/VTE Risk/Contraindication: Risk Factor Score Per Nursin RFS Level Per Nursing on Admit: 2=Moderate MORIS GABRIEL MD Jul 13, 2017 08:40
[2017-07-13] MEDS ORDERED: ASPIRIN E.C. 81 MG (ECOTRIN) TAB PO SCH (09:00)
[2017-07-13] MEDS: FAMOTIDINE 20 MG (PEPCID) TABLET PO SCH (09:02)
[2017-07-13] MEDS: DOCUSATE SODIUM 100 MG (COLACE) CAP PO SCH (09:02)
[2017-07-13] MEDS: APIXABAN 5 MG (ELIQUIS) TABLET PO SCH (09:03)
[2017-07-13] MEDS: CEPHALEXIN 250 MG (KEFLEX) CAP PO SCH ×2 (09:04→14:09)
[2017-07-13] MEDS ORDERED: CITA20TA7 PO (09:08)
[2017-07-13] MEDS ORDERED: TIMO5DRO5 OU (09:15)
[2017-07-13] MEDS ORDERED: ACET-2267 PO (09:16)
--- NOTE | 2017-07-13 10:39 | Physical Therapy Evaluation ---
PT Evaluation-General Medical Diagnosis Admission Date Jul 12, 2017 at 16:16 Medical Diagnosis: bradycardia Onset Date: Jul 12, 2017 Therapy Diagnosis Therapy Diagnosis: debility Height/Weight Height (Feet): 5 Height (Inches): 6.00 Weight (Pounds): 140 Weight (Ounces): 0.0 Precautions Precautions/Isolations: Fall Prevention, Standard Precautions Referral Physician: Muna Reason for Referral: Evaluation/Treatment Medical History Pertinent Medical History: Atrial Fib, CVA, GERD, HTN, Hypothroidism, Rheumatoid Arthritis Additional Medical History multiple hospital stays this year Current History increase in confusion, hypotension, unresponsive arrived via EMS Reviewed History: Yes Social History Home: Assisted Living Current Living Status: Spouse Entry Into Home: Level Entry Prior/Core FIM Prior Level of Function Functional [place] Measure 0=Not Assessed/NA 4=Minimal Assistance 1=Total Assistance 5=Supervision or Setup 2=Maximal Assistance 6=Modified [place] 3=Moderate Assistance 7=Complete [place] Bed Mobility: 4 Transfers (B,C,W/C) (FIM): 5 Gait: 5 PT Evaluation-Current Subjective Patient agrees to PT. Incontinent BM. Pain Numeric Pain Scale: 0-No Pain Location: No Pain Reported Objective Patient Orientation: Person, Confused Problem Solving: Fair telemetry ROM/Strength ROM Lower Extremities bilateral LE WNL Strenght Lower Extremities right LE 4-/5 grossly, left LE 4/5 grossly Integumentary/Posture Integumentary refer to nursing notes Bowel Incontinence: Yes Bladder Incontinence: Yes Posture WNL Neuromuscular (Tone, Coordination, Reflexes) diminished coordination due to old CVA Sensory Vision: Wears Glasses Hearing: Impaired Sensation Right Lower Extremit: Impaired Sensation Left Lower Extremity: Impaired Transfers Functional [place] Measure 0=Not Assessed/NA 4=Minimal Assistance 1=Total Assistance 5=Supervision or Setup 2=Maximal Assistance 6=Modified [place] 3=Moderate Assistance 7=Complete [place] Transfers (B, C, W/C) (FIM): 4 Scootin Rollin Supine to/from Sit: 4 Sit to/from Stand: 5 Gait Mode of Locomotion: Walk Anticipated Mode of Locomotion: Walk Gait (FIM): 4 Distance (FIM): 3=150 ft Distance: 150' Gait Level of Assist: 4 Gait Persons Needed: 1 Gait Assistive Device: FWW Comments/Gait Description shuffle gait sequence Balance Sitting Static: Fair Sitting Dynamic: Fair Standing Static: Fair Standing Dynamic: Fair Assessment/Needs 82 y.o. female, will benefit from short term skilled PT to address functional mobility to improve current LOF and to safely return to [place] with spouse and assist of staff. Rehab Potential: Fair PT Investment Director Goals Assisted Goals PT Assisted Goals Time Frame: Jul 21, 2017 Transfers (B,C,W/C) (FIM): 5 Gait (FIM): 5 Gait distance (FIM): 3=150 ft Gait Level of Assist: 5 Gait Assistive Device: FWW PT Plan Problem List Problem List: Activity Tolerance, Safety, Gait, Bed Mobility Treatment/Plan Treatment Plan: Continue Plan of Care Treatment Plan: Bed Mobility, Education, Functional Activity [place], Functional Strength, Gait, Safety, Therapeutic Exercise, Transfers Treatment Duration: Jul 21, 2017 Frequency: Daily Estimated Hrs Per Day: .25 hour per day Patient and/or Family Agrees t: Yes Discharge Recommendations Therapy D/C Recommendations: Assisted Living Time/GCodes Time In: 1000 Time Out: 1020 Total Billed Treatment Time: 20 Total Billed Treatment 1 visit EVLowC 20min G Codes Necessary: No CHRISTIANNE HOWARD PT Jul 13, 2017 10:39
--- NOTE | 2017-07-13 11:39 | Short Stay Summary-Hospitalist ---
HPI History of Present Illness: HPI/Chief Complaint The patient is an 82-year-old white female from [facility] in [place]. She was brought to the emergency room last night with the fear that she was experiencing a stroke. She had previously had a stroke several years ago and was left with a rather severe aphasia and some decline in her function on the right. She apparently is able to walk a bit with a walker. CT scan done in the emergency room showed no evidence of new infarct but confirmed old infarct and encephalomalacia. MRA performed because of previously defined allergy to iodine-based contrast suggested a flow impairment possibly based on the bradycardia that she presented with. Exam Limitations: no limitations Date Seen 07/13/17 Time Seen by Provider: 11:39 Attending Physician Pablo Harmon MD PCP Dayton Enciso DO Referring Physician Date of Admission Jul 12, 2017 at 16:16 Home Medications & Allergies Home Medications Reviewed patient Home Medication Reconciliation Form Allergies Allergies Coded Allergies iodine (Unverified Adverse Reaction, Unknown, 10/12/15) lidocaine (Unverified Adverse Reaction, Unknown, 10/12/15) Past Hhaorkj-Ubdmpf-Dazmml Hx Patient Social History Marrital Status: Employed/Student: retired Alcohol Use: Denies Use Recreational Drug Use: No Smoking Status: Never a Smoker Physical Abuse Screen: No Sexual Abuse: No Recent Foreign Travel: No Contact w/other who traveled: No Recent Hopitalizations: No Recent Infectious Disease Expo: No Immunizations Up To Date Tetanus Booster (TDap): Less than 5yrs Date of Pneumonia Vaccine: Jul 12, 2016 Date of Influenza Vaccine: Aug 17, 2016 Seasonal Allergies Seasonal Allergies: Yes Surgeries Yes (BILAT FOOT surgery d/t RA. Eye SX. ) Appendectomy, Gallbladder, Hysterectomy Respiratory No COPD Currently Using CPAP: No Currently Using BIPAP: No Cardiovascular Yes Atrial Fibrillation, Hypertension Neurological Yes Stroke, TIA Genitourinary No Gastrointestinal Yes Gastroesophageal Reflux Musculoskeletal Yes Rheumatoid Arthritis Endocrine History of Endocrine Disorders: Yes Endocrine Disorders: Hypothyroidsim HEENT History of HEENT Disorders: Yes HEENT Disorders: Glaucoma Loss of Vision: Right Hearing Impairment: Hard of Hearing Cancer Yes Ovarian, Uterine Psychosocial History of Psychiatric Problem: No Integumentary History of Skin or Integumenta: No Blood Transfusions History of Blood Disorders: No Adverse Reaction to a Blood Tr: No Family Medical History Family Hx: Alcoholism 19 FATHER Asthma 19 MOTHER G8 SISTER Cardiovascular disease G8 SISTER FH: atrial fibrillation G8 SISTER FH: cancer G8 BROTHER G8 SISTER FH: lymphoma G8 BROTHER G8 SISTER Review of Systems ROS-Unable to Obtain: the patient is very limited in speech. Mostly she is able to answer in one Constitutional: see HPI EENTM: no symptoms reported Respiratory: no symptoms reported Cardiovascular: no symptoms reported Physical Exam Physical Exam Vital Signs Vital Sign - Last 12Hours 07/12/17 13:26 Temp 97.5 Pulse 76 Resp 16 B/P (MAP) 130/86 Pulse Ox 97 O2 Delivery Room Air Capillary Refill : Less Than 3 Seconds General Appearance: Anxious Eyes: Bilateral Eye Normal Inspection HEENT: Normal ENT Inspection Neck: Full Range of Motion, Normal Inspection, Non Tender, Supple, Carotid Bruit Cardiovascular: Irregularly Irregular Gastrointestinal: Normal Bowel Sounds, No Organomegaly, No Pulsatile Mass, Non Tender, Soft Extremity: Normal Capillary Refill, Normal Inspection, Normal Range of Motion, Non Tender, No Calf Tenderness, No Pedal Edema Neurologic/Psychiatric: Alert, Oriented x3, No Motor/Sensory Deficits, Normal Mood/Affect Skin: Normal Color, Warm/Dry Lymphatic: No Adenopathy Results Results/Procedures Lab Laboratory Tests 07/12/17 12:51 07/13/17 05:12 Short Stay Diagnosis Discharge Diagnosis-Short Stay Admission Diagnosis 1. Possible extension of previous stroke. 2.aphasia secondary to previous stroke. 3.residual weakness right side. 4.chronic atrial fibrillation. 5.bradycardia possibly secondary to multiple medications with negative chronotropic effect. Final Discharge Diagnosis 1.bradycardia resolved with improvement in neurologic function. 2.previous CVA with aphasia and right-sided weakness. 3.chronic atrial fibrillation with bradycardia now resolved Conclusion Plan Discharge back to [facility] [place] Clinical Quality Measures DVT/VTE Risk/Contraindication: Risk Factor Score Per Nursin RFS Level Per Nursing on Admit: 2=Moderate PABLO HARMON MD Jul 13, 2017 11:39
--- NOTE | 2017-07-13 11:59 | Discharge Instructions ---
Discharge Instructions Patient Instructions Patient Instructions: Resume previous diet, activities, and use the updated med list which accompanies this document. Activity & Diet Discharge Diet: No Restrictions Copy Copies To 1: ANNMARIE FAGAN RODNEY K MD Jul 13, 2017 11:59
[2017-07-13] MEDS ORDERED: ACETAMINOPHEN 500 MG TAB (TYLENOL) PO PRN (12:00)
[2017-07-13] MEDS ORDERED: GABAPENTIN 300 MG (NEURONTIN) CAP PO SCH (21:00)
[2017-07-13] MEDS ORDERED: APIXABAN 5 MG (ELIQUIS) TABLET PO SCH (21:00)
[2017-07-13] MEDS ORDERED: PANTOPRAZOLE 20 MG TABLET (PROTONIX) PO SCH (21:00)
[2017-07-13] MEDS ORDERED: TIMOLOL MALEATE 0.5% 5 ML (TIMOPTIC) BTL OU SCH (21:00)
[2017-07-13] MEDS ORDERED: SIMvastatin 40 MG (ZOCOR) TAB PO SCH (21:00)
[2017-07-14] MEDS ORDERED: LEVOTHYROXINE 75 MCG (LEVOTHROID) TABLET PO SCH (06:30)
[2017-07-14] MEDS ORDERED: lisINopril 5 MG (PRINIVIL) TABLET PO SCH (09:00)
[2017-07-14] MEDS ORDERED: ATENOLOL 25 MG (TENORMIN) TAB PO SCH (09:00)
== END 2017-07-13 16:15 | DRG 309 ==
LOC: EDUNIT# 12:36 → ER 12:37 → ICU 16:16
PROVIDERS: ADMIT Internal Medicine; ATTEND Internal Medicine
DX: R00.1 Bradycardia, unspecified (principal); I69.351 Hemiplegia and hemiparesis following cerebral infarction affecting right dominant side; I69.320 Aphasia following cerebral infarction; I48.1 Persistent atrial fibrillation; I10 Essential (primary) hypertension; Z66 Do not resuscitate; M06.9 Rheumatoid arthritis, unspecified; K21.9 Gastro-esophageal reflux disease without esophagitis; E03.9 Hypothyroidism, unspecified; E78.5 Hyperlipidemia, unspecified; H40.9 Unspecified glaucoma; Z85.43 Personal history of malignant neoplasm of ovary; Z85.42 Personal history of malignant neoplasm of other parts of uterus; Z79.01 Long term (current) use of anticoagulants
CPT/HCPCS: 36415; 70450; 70544; 71010; 80053; 80061; 80162; 81000; 83735; 83874; 84100; 84439; 84443; 84484; 85025; 85379; 85610; 85730; 93005; 93041; 93880